=== PATIENT | female | born 1950 | race Hispanic/Latino ===

== ENCOUNTER 2016-06-25 15:09 | Emergency (ER) | payer MEDICARE, BC ==
[2016-06-25 15:25] VITALS: BMI 26.4
[2016-06-25 15:27] VITALS: BP 136/97; PULSE 60; RESP 18; TEMP 98.4; O2SAT 97
[2016-06-25 17:05] LABS: PARTIAL THROMBOPLASTIN TIME 60.1 Seconds (23.7-30.8)
[2016-06-25 17:32] LABS: INR > 11.00 (0.93-1.08)
--- NOTE | 2016-06-25 18:05 | ED PDOC ---
Arrival/HPI - General Chief Complaint: Abnormal Labs Time Seen by Provider: 06/25/16 15:12 Historian: Patient - History of Present Illness Narrative History of Present Illness (Text): 06/25/16 18:02 66 y.o. female whose PMHx includes venous thromboembolism, on coumadin and on HD for ESRD who had her INR drawn this morning at HD and found to be >11.0 - Dr. Eller was made aware; patient was unable to get Vit K, so she was sent here. She denies any cp or sob or abd pain or bleeding. Past Medical History - Infectious Disease Hx of Infectious Diseases: None - Tetanus Immunization Tetanus Immunization: Unknown - Reproductive Menopause: Yes - Cardiac Hx Cardiac Disorders: Yes Hx Congestive Heart Failure: Yes Hx Hypertension: Yes - Pulmonary Hx Pneumonia: Yes - Neurological Hx Neurological Disorder: Yes (syncope) Hx Dizziness: Yes Hx Parkinson's Disease: Yes (hand tremors) Hx Seizures: Yes (x1) - HEENT Hx HEENT Disorder: Yes ([place] l ear, glasses) Hx Cataracts: Yes (BILATERAL CATARACT SURGERY) Hx Deafness: No (denies) - Renal Hx Dialysis: Yes (MWF) Hx Renal Failure: Yes - Endocrine/Metabolic Hx Diabetes Mellitus Type 2: Yes - Hematological/Oncological Hx Blood Disorders: Yes Hx Anemia: Yes (blood transfusions) - Integumentary Hx Dermatological Disorder: Yes (RIGHT BKA,LEFT GREAT TOE AMPUTATION) - Musculoskeletal/Rheumatological Hx Falls: No - Gastrointestinal Hx Gastrointestinal Disorders: Yes (hx c dif/diverticulitis/ reflux) Hx Pancreatitis: Yes Other/Comment: hx colitis had diarrhea x 1 yr and 70 lb weight loss - Genitourinary/Gynecological Hx Genitourinary Disorders: No - Psychiatric Hx Psychophysiologic Disorder: Yes Hx Anxiety: Yes Hx Depression: Yes Hx Emotional Abuse: No Hx Physical Abuse: No Hx Sexual Abuse: No Hx Substance Use: No - Surgical History Hx Amputation: Yes (hx gangrene amputation of left great toe, right bka) Hx Cardiac Catheterization: Yes Hx Coronary Stent: Yes Hx Musculoskeletal Surgery: Yes (right BKA) Other/Comment: LEFT FEMORAL BYPASSl meniscus/ r bka amputation due to ischemia and pain, c section x 2, left upper arm av fistula failed, has right chest wall udall, left great toe amputated due to gangrene - Anesthesia Hx Anesthesia: Yes Hx Anesthesia Reactions: No Hx Malignant Hyperthermia: No - Suicidal Assessment Feels Threatened In Home Enviroment: No Family/Social History Family/Social History: No Known Family HX Smoking Status: Never Smoked Hx Alcohol Use: No Hx Substance Use: No Hx Substance Use Treatment: No Allergies/Home Meds Allergies/Adverse Reactions: Allergies ciprofloxacin Allergy (Verified 02/27/16 14:39) SWELLING hallucination pepper Allergy (Verified 02/27/16 14:39) SWELLING Home Medications: Home Meds Medication Instructions Recorded Confirmed Insulin Aspart [Novolog] 5 - 10 unit SQ ACTID 04/23/15 01/01/16 Vitamin B Complex/Vit C/Folic 1 tab PO DAILY 05/09/15 01/01/16 [Nephro-Felix] Aspirin [Aspirin EC] 81 mg PO DAILY 05/10/15 01/01/16 Albuterol/Ipratropium [Duoneb 3 3 ml IH [id number] PRN 11/07/15 01/01/16 mg/0.5 mg (3 ml) UD] Calcium Acetate [Phoslo] 667 mg PO TID 01/01/16 01/01/16 Insulin Detemir [Levemir] 20 units SC HS 01/01/16 01/01/16 Review of Systems - Review of Systems Constitutional: absent: Fevers Respiratory: absent: SOB Cardiovascular: absent: Chest Pain Gastrointestinal: absent: Abdominal Pain, Nausea, Vomiting Hemo/Lymphatic: absent: Easy Bleeding Physical Exam Vital Signs Temp Pulse Resp BP Pulse Ox 06/25/16 15:27 98.4 F 60 18 136/97 H 97 06/25/16 15:25 100 F H 61 18 136/87 100 Temperature: Afebrile Blood Pressure: Normal Pulse: Regular Respiratory Rate: Normal Appearance: Positive for: Well-Appearing, Non-Toxic, Comfortable Pain Distress: None Mental Status: Positive for: Alert and Oriented X 3 - Systems Exam Head: Present: Atraumatic, Normocephalic Mouth: Present: Moist Mucous Membranes Pharnyx: Present: Normal. No: ERYTHEMA, EXUDATE Respiratory/Chest: Present: Clear to Auscultation, Good Air Exchange. No: Respiratory Distress, Accessory Muscle Use Cardiovascular: Present: Regular Rate and Rhythm, Normal S1, S2. No: Murmurs Abdomen: Present: Normal Bowel Sounds. No: Tenderness, Distention, Peritoneal Signs Neurological: Present: GCS=15, CN II-XII Intact, Speech Normal Skin: Present: Warm, Dry, Normal Color. No: Rashes Psychiatric: Present: Alert, Oriented x 3, Normal Insight, Normal Concentration Medical Decision Making ED Course and Treatment: 06/25/16 18:04 Patient with coumadin coagulopathy with INR, which was repeated, to be greater than 11.0 - as discussed with Dr. Eller, patient will be sent home after 10mg orally of vitamin K, and she will have her INR repeated in 2 days at dialysis. - Lab Interpretations Lab Results: Lab Results 06/25/16 16:28: PT > 120.0 H*, INR > 11.00 H*, APTT 60.1 H - Medication Orders Current Medication Orders: Discontinued Medications Phytonadione (Vitamin K Tab) 10 mg PO ONCE STA Stop: 06/25/16 17:33 Disposition/Present on Arrival - Present on Arrival Any Indicators Present on Arrival: No History of DVT/PE: No History of Uncontrolled Diabetes: No Urinary Catheter: No History of Decub. Ulcer: No History Surgical Site Infection Following: None - Disposition Have Diagnosis and Disposition been Completed?: Yes Diagnosis: Supratherapeutic INR Disposition: HOME/ ROUTINE Disposition Time: 18:10 Patient Plan: Discharge Patient Problems: Current Active Problems Problem Status Diagnosed Acute chest pain Acute Chest pain in adult Acute Hyperkalemia Acute Hypertensive crisis Acute Pneumonia Acute Supratherapeutic INR Acute Syncope and collapse Acute Condition: GOOD Additional Instructions: Hold your coumadin until directed further and your INR is rechecked at dialysis in 2 days. Return to the emergency department immediately if any bleeding or any new concerning symptoms.
== END 2016-06-25 20:46 | disposition home or self-care (01) ==
LOC: ED 15:09
DX: R79.1 Abnormal coagulation profile (principal)

== ENCOUNTER 2016-07-09 14:05 | Emergency (ER) | payer MEDICARE, BC ==
[2016-07-09 14:13] VITALS: TEMP 98
[2016-07-09 14:14] VITALS: BMI 24.8
--- NOTE | 2016-07-09 15:03 | ED PDOC ---
Arrival/HPI - General Chief Complaint: Upper Extremity Problem/Injury Time Seen by Provider: 07/09/16 14:11 Historian: Patient - History of Present Illness Narrative History of Present Illness (Text): 07/09/16 15:20 A 66 year old female, whose past medical history includes DVT (on Coumadin), and renal disease (Dialysis on Friday, , and Saturdays), presents to the emergency department complaining of left arm pain. Pain is localized to the left upper arm. She notes in the past she had a DVT at the site of the pain. Patient's daughter was contacted, who states the patient has been complaining of left arm pain for the past 4 days. Daughter reports patient may have pulled her arm to hard, but denies any falls or trauma. Daughter also states the patient sometimes talks slowly when she has pain. Daughter noticed the patient was talking slowly yesterday. Patient and daughter deny any fever, chest pain or any other complaints at this time. PMD: Dr. Morton Protein Specialist: Dr. sIsa Time/Duration: Other (4 days) Symptom Onset: Sudden Symptom Course: Unchanged Quality: Other Activities at Onset: Rest Context: Home Past Medical History - Provider Review Nursing Documentation Reviewed: Yes - Infectious Disease Hx of Infectious Diseases: None - Tetanus Immunization Tetanus Immunization: Unknown - Reproductive Menopause: No - Cardiac Hx Cardiac Disorders: Yes Hx Congestive Heart Failure: Yes Hx Hypertension: Yes - Pulmonary Hx Pneumonia: Yes - Neurological Hx Neurological Disorder: Yes (syncope) Hx Dizziness: Yes Hx Parkinson's Disease: Yes (hand tremors) Hx Seizures: Yes (x1) - HEENT Hx HEENT Disorder: Yes ([place] l ear, glasses) Hx Cataracts: Yes (BILATERAL CATARACT SURGERY) Hx Deafness: No (denies) - Renal Hx Dialysis: Yes (MWF) Hx Renal Failure: Yes - Endocrine/Metabolic Hx Diabetes Mellitus Type 2: Yes - Hematological/Oncological Hx Blood Disorders: Yes Hx Anemia: Yes (blood transfusions) - Integumentary Hx Dermatological Disorder: Yes (RIGHT BKA,LEFT GREAT TOE AMPUTATION) - Musculoskeletal/Rheumatological Hx Falls: No - Gastrointestinal Hx Gastrointestinal Disorders: Yes (hx c dif/diverticulitis/ reflux) Hx Pancreatitis: Yes Other/Comment: hx colitis had diarrhea x 1 yr and 70 lb weight loss - Genitourinary/Gynecological Hx Genitourinary Disorders: No - Psychiatric Hx Psychophysiologic Disorder: Yes Hx Anxiety: Yes Hx Depression: Yes Hx Emotional Abuse: No Hx Physical Abuse: No Hx Sexual Abuse: No Hx Substance Use: No - Surgical History Hx Amputation: Yes (hx gangrene amputation of left great toe, right bka) Hx Cardiac Catheterization: Yes Hx Coronary Stent: Yes Hx Musculoskeletal Surgery: Yes (right BKA) Other/Comment: LEFT FEMORAL BYPASSl meniscus/ r bka amputation due to ischemia and pain, c section x 2, left upper arm av fistula failed, has right chest wall udall, left great toe amputated due to gangrene - Anesthesia Hx Anesthesia: Yes Hx Anesthesia Reactions: No Hx Malignant Hyperthermia: No - Suicidal Assessment Feels Threatened In Home Enviroment: No Family/Social History - Physician Review Nursing Documentation Reviewed: Yes Family/Social History: No Known Family HX Smoking Status: Never Smoked Hx Alcohol Use: No Hx Substance Use: No Hx Substance Use Treatment: No Allergies/Home Meds Allergies/Adverse Reactions: Allergies ciprofloxacin Allergy (Verified 02/27/16 14:39) SWELLING hallucination pepper Allergy (Verified 02/27/16 14:39) SWELLING Home Medications: Home Meds Medication Instructions Recorded Confirmed Insulin Aspart [Novolog] 5 - 10 unit SQ ACTID 04/23/15 01/01/16 Vitamin B Complex/Vit C/Folic 1 tab PO DAILY 05/09/15 01/01/16 [Nephro-Felix] Aspirin [Aspirin EC] 81 mg PO DAILY 05/10/15 01/01/16 Albuterol/Ipratropium [Duoneb 3 3 ml IH [id number] PRN 11/07/15 01/01/16 mg/0.5 mg (3 ml) UD] Calcium Acetate [Phoslo] 667 mg PO TID 01/01/16 01/01/16 Insulin Detemir [Levemir] 20 units SC HS 01/01/16 01/01/16 Review of Systems - Physician Review All systems were reviewed & negative as marked: Yes - Review of Systems Constitutional: absent: Fevers Cardiovascular: absent: Chest Pain Musculoskeletal: Other (left arm pain) Neurological: Other (slow speech) Physical Exam Vital Signs Reviewed: Yes Vital Signs Temp Pulse Resp BP Pulse Ox 07/09/16 15:00 58 L 18 152/79 H 95 07/09/16 14:13 98.0 F 59 L 18 154/81 H 95 Temperature: Afebrile Blood Pressure: Hypertensive Pulse: Bradycardic Respiratory Rate: Normal Appearance: Positive for: Well-Appearing, Non-Toxic, Comfortable Pain Distress: None Mental Status: Positive for: Alert and Oriented X 3 - Systems Exam Head: Present: Atraumatic, Normocephalic Pupils: Present: PERRL Extroacular Muscles: Present: EOMI Conjunctiva: Present: Normal Mouth: Present: Moist Mucous Membranes Neck: Present: Normal Range of Motion Respiratory/Chest: Present: Clear to Auscultation, Good Air Exchange, Other ( right chest shotty; dialysis port right chest). No: Respiratory Distress, Accessory Muscle Use Cardiovascular: Present: Normal S1, S2, Bradycardic. No: Murmurs Abdomen: Present: Normal Bowel Sounds. No: Tenderness, Distention, Peritoneal Signs Upper Extremity: Present: Tenderness (mild tenderness with palpation to the left upper arm), Neurovascularly Intact, Temperature Abnormalties (warmth to left arm). No: Cyanosis, Edema, Erythema Lower Extremity: Present: Other (right lower extremity with below knee amputation with metal prosthetic; left lower extremity in boot) Neurological: Present: GCS=15, CN II-XII Intact, Speech Normal, Motor Func Grossly Intact, Normal Sensory Function Skin: Present: Warm, Dry, Normal Color. No: Rashes Psychiatric: Present: Alert, Oriented x 3, Normal Insight, Normal Concentration Medical Decision Making ED Course and Treatment: 07/09/16 15:41 Impression: 66 year old female with left arm pain and slow speech.. Differential Diagnosis included but are not limited to: DVT vs. MSK Strain/ Contusion of left arm; Slow speech is due to her being her daughter states but will r/o ICH Plan: -- Left upper extremity duplex -- Head CT -- Left humerus X-ray -- Labs -- Tylenol -- Reassess and disposition Prior Visits: Notes and results from previous visits were reviewed. The patient last presented to the emergency department on 06/25/16 for evaluation of a INR count of 11.0. Progress Notes: 07/09/16 16:32 Ultrasound called the emergency department to notify us the patient Ultrasound is negative for DVT. 07/09/16 17:[address]: Creator : Jazlyn Hedrick MD COMPARISON: Noncontrast head CT performed 09/22/15 FINDINGS: HEMORRHAGE: No intracranial hemorrhage. BRAIN: Diffuse atrophy with prominence of the ventricles and sulci noted. No mass effect or edema. Dense intracranial atherosclerotic calcifications. Scattered periventricular and subcortical white matter hypodensities, which are nonspecific, but often seen with chronic microvascular ischemic disease. 7 mm chronic right lacunar infarct. Please note that MRI with diffusion imaging is more sensitive in the detection of acute ischemic event. VENTRICLES: No hydrocephalus. CALVARIUM: Unremarkable. PARANASAL SINUSES: Unremarkable as visualized. No significant inflammatory changes. MASTOID AIR CELLS: Unremarkable as visualized. No inflammatory changes. OTHER FINDINGS: None. IMPRESSION: Chronic nonspecific white matter changes. Chronic 6 mm right-sided lacunar infarct. Generalized atrophy. 07/09/16 18:23 Left Humerus X-ray Impression: As read by me, no acute fracture. 07/09/16 18:28 Left heel was evaluated. Ulcer looks like it's healing. No warmth or redness or pus. No foul order. Patient is comfortable and in no acute distress. She is at her baseline mental status as per her family. Labs reviewed. WBC nl. CT head negative. US negative for DVT. Patient and family advised to continue Coumadin. Patient will f/u with Dr. Morton and family knows to return if symptoms worsen or any other concern. - Lab Interpretations Lab Results: 07/09/16 15:21 07/09/16 15:21 Lab Results 07/09/16 17:00: PT 15.4 H, INR 1.43 H, APTT 33.0 H 07/09/16 15:21: WBC 8.6 D, RBC 3.66, Hgb 10.2 L, Hct 30.9 L, MCV 84.4, MCH 27.9 , MCHC 33.0, RDW 16.3 H, Plt Count 164, MPV 11.7 H, Gran % 78.8 H, Lymph % (Auto ) 10.5 L, Ida % (Auto) 6.6 H, Eos % (Auto) 3.8, Baso % (Auto) 0.3, Gran # 6.78 H, Lymph # 0.9 L, Ida # 0.6, Eos # 0.3, Baso # 0.03, Sodium 138, Potassium 3.4 L, Chloride 96 L, Carbon Dioxide 30, Anion Gap 15, BUN 22 H, Creatinine 2.7 H, Est GFR ( Amer) 21, Est GFR (Non-Af Amer) 18, Random Glucose 112 H, Calcium 9.9 I have reviewed the lab results: Yes - RAD Interpretation Radiology Orders: 07/09/16 14:58 DUPLEX UPPER EXTRM VEIN LEFT [US] Stat 07/09/16 14:59 HUMERUS LEFT [RAD] Stat 07/09/16 15:45 HEAD W/O CONTRAST [CT] Stat - Medication Orders Current Medication Orders: Discontinued Medications Acetaminophen (Tylenol 325mg Tab) 650 mg PO STAT STA Stop: 07/09/16 14:59 Last Admin: 07/09/16 15:20 Dose: 650 MG MAR Pain/Vitals Document 07/09/16 15:20 RR (Rec: 07/09/16 15:20 RR [id number]) Pain Reassessment Is This A Pain ReAssessment? Yes Sleep Is patient sleeping during reassessment? No Presence of Pain Presence of Pain Yes Pain Scale Used Pain Scale Used Numeric Location Pain Location Body Site Arm - Scribe Statement The provider has reviewed the documentation as recorded by the Leda Coy training under Susana Ortiz All medical record entries made by the Leda were at my direction and personally dictated by me. I have reviewed the chart and agree that the record accurately reflects my personal performance of the history, physical exam, medical decision making, and the department course for this patient. I have also personally directed, reviewed, and agree with the discharge instructions and disposition. Disposition/Present on Arrival - Present on Arrival Any Indicators Present on Arrival: No History of DVT/PE: No History of Uncontrolled Diabetes: No Urinary Catheter: No History of Decub. Ulcer: No History Surgical Site Infection Following: None - Disposition Have Diagnosis and Disposition been Completed?: Yes Diagnosis: Arm pain, left Disposition: HOME/ ROUTINE Disposition Time: 18:33 Patient Plan: Discharge Patient Problems: Current Active Problems Problem Status Diagnosed Acute chest pain Acute Arm pain, left Acute Chest pain in adult Acute Hyperkalemia Acute Hypertensive crisis Acute Pneumonia Acute Syncope and collapse Acute Condition: IMPROVED Discharge Instructions (ExitCare): Arm Pain (ED) Additional Instructions: Ms Dickson and family, thank you for letting us take care of you today. Your provider was Dr. Lebron. You were treated for Left Arm Pain. The emergency medical care you received today was directed at your acute symptoms. If you were prescribed any medication, please fill it and take as directed. It may take several days for your symptoms to resolve. Return to the Emergency Department if your symptoms worsen, do not improve, or if you have any other problems. Please contact your doctor or call one of the physicians/clinics you have been referred to that are listed on the Patient Visit Information form that is included in your discharge packet. Bring any paperwork you were given at discharge with you along with any medications you are taking to your follow up visit. Our treatment cannot replace ongoing medical care by a primary care provider (PCP) outside of the emergency department. Thank you for allowing the [facility] team to be part of your care today. If you had an X-Ray or CT scan: A Radiologist will review the ED reading if any change in treatment is needed we will contact you. If you had a blood, urine, or wound culture: It will take several days for the results, if any change in treatment is needed we will contact you. If you had an STI test: It will take 48 hours for the results. Please call after 1 week if you have not heard back. Referrals: Alexey Morton MD [Staff Provider] - Follow up with primary Forms: WORK NOTE
[2016-07-09 15:21] LABS: ADD MANUAL DIFF? NO
[2016-07-09 15:31] LABS: BASO # 0.03 K/mm3 (0.0-2.0); BASO % 0.3 % (0.0-3.0); EOS # 0.3 (0.0-0.7); EOS % 3.8 % (1.5-5.0); GRAN # 6.78 (1.4-6.5); GRAN % 78.8 % (50.0-68.0); HEMATOCRIT 30.9 % (36.0-48.0); LYMPH # 0.9 (1.2-3.4); LYMPH % 10.5 % (22.0-35.0); MEAN CELL VOLUME 84.4 fL (80.0-105.0); MEAN CORPUSCULAR HEMOGLOBIN 27.9 pg (25.0-35.0); MEAN PLATELET VOLUME 11.7 fl (7.0-11.0); MONO # 0.6 (0.1-0.6); MONO % 6.6 % (1.0-6.0); PLATELET COUNT 164 10^3/uL (120.0-450.0); RED CELL DISTRIBUTION WIDTH 16.3 % (11.5-14.5); WHITE BLOOD COUNT 8.6 10^3/ul (4.5-11.0)
[2016-07-09 15:34] LABS: CALCIUM 9.9 mg/dL (8.4-10.5); POTASSIUM 3.4 mmol/L (3.6-5.0)
--- NOTE | 2016-07-09 17:01 | US ---
PROCEDURE: Left upper extremity venous ultrasound HISTORY: Arm pain and swelling. Evaluate for deep venous thrombosis. PHYSICIAN(S): Carl Morris MD. FINDINGS: The visualized leftinternal jugular vein is sonographically normal and compressible. No evidence of obstruction or thrombus is seen. The visualized segments of the left subclavian vein are patent with normal waveforms. No sonographic evidence of obstruction or thrombosis is seen. The visualized deep venous system of the proximal leftupper extremity is sonographically normal and compressible. IMPRESSION: 1. No sonographic evidence for deep venous thrombosis in the visualized segments of the left upper extremity.
--- NOTE | 2016-07-09 17:20 | CT ---
PROCEDURE: CT HEAD WITHOUT CONTRAST. HISTORY: altered mental status COMPARISON: Noncontrast head CT performed 09/22/15 TECHNIQUE: Axial computed tomography images were obtained through the head/brain without intravenous contrast. Radiation dose: Total exam DLP = 725.84 mGy-cm. This CT exam was performed using one or more of the following dose reduction techniques: Automated exposure control, adjustment of the mA and/or kV according to patient size, and/or use of iterative reconstruction technique. FINDINGS: HEMORRHAGE: No intracranial hemorrhage. BRAIN: Diffuse atrophy with prominence of the ventricles and sulci noted. No mass effect or edema. Dense intracranial atherosclerotic calcifications. Scattered periventricular and subcortical white matter hypodensities, which are nonspecific, but often seen with chronic microvascular ischemic disease. 7 mm chronic right lacunar infarct. Please note that MRI with diffusion imaging is more sensitive in the detection of acute ischemic event. VENTRICLES: No hydrocephalus. CALVARIUM: Unremarkable. PARANASAL SINUSES: Unremarkable as visualized. No significant inflammatory changes. MASTOID AIR CELLS: Unremarkable as visualized. No inflammatory changes. OTHER FINDINGS: None. IMPRESSION: Chronic nonspecific white matter changes. Chronic 6 mm right-sided lacunar infarct. Generalized atrophy.
[2016-07-09 17:54] LABS: INR 1.43 (0.93-1.08)
[2016-07-09 18:34] VITALS: RESP 16; O2SAT 98
[2016-07-09 18:58] VITALS: BP 142/74; PULSE 59
--- NOTE | 2016-07-10 09:30 | RAD ---
PROCEDURE: Radiographs of the left humerus. HISTORY: left arm pain r/o fx COMPARISON: None. FINDINGS: BONES: Normal. No fracture or focal lesion. SOFT TISSUES: Normal. OTHER FINDINGS: None. IMPRESSION: Normal radiographs of left humerus.
== END 2016-07-09 18:58 | disposition home or self-care (01) ==
LOC: ED 14:05
DX: M79.602 Pain in left arm (principal); I12.9 Hypertensive chronic kidney disease with stage 1 through stage 4 chronic kidney disease, or unspecified chronic kidney disease; N18.9 Chronic kidney disease, unspecified; Z99.2 Dependence on renal dialysis; Z86.718 Personal history of other venous thrombosis and embolism; Z79.01 Long term (current) use of anticoagulants

== ENCOUNTER 2016-07-20 11:16 | Inpatient (IN) | payer MEDICARE, BC ==
[2016-07-20 11:22] VITALS: BMI 25.0
--- NOTE | 2016-07-20 11:46 | ED PDOC ---
Arrival/HPI - General Chief Complaint: Weakness/Neurological Deficit Time Seen by Provider: 07/20/16 11:18 Historian: Patient - History of Present Illness Narrative History of Present Illness (Text): 07/20/16 11:21 Yoselyn Dickson is a 66 year old female, whose past medical history includes DVT (on Coumadin), and renal disease (Dialysis on Friday, , and Saturdays), who presents to the emergency department complaining of feeling fatigue and reported AMS since this morning. Patient states that she was able to get out of bed today but fell as she was sitting down. Patient notes that she has no headache and no pain presently, she just feels "very tired." History reviewed with patient's family who states that patient has been fatigued, weak, and sleeping more for over a week. Patient's family also states that patient falls asleep easily and does not ambulate well. They note that patient symptoms are similar to her presentation on July 09. Family states she has been tired "on and off" for several weeks, but over past 1-2 days it has been more persistent. No history of head injury or fevers. No abdominal pain. No rash. No nausea or vomiting. Family states that patient is taking her medication appropriately and there is no history of recent change in medication to their knowledge. Patient also denies inappropriate usage of medication. Time/Duration: 4-6 hours Symptom Onset: Gradual Symptom Course: Unchanged Activities at Onset: Light Modifying Factors (Text): None Context: Home Past Medical History - Provider Review Nursing Documentation Reviewed: Yes - Infectious Disease Hx of Infectious Diseases: None - Tetanus Immunization Tetanus Immunization: Unknown - Cardiac Hx Cardiac Disorders: Yes Hx Congestive Heart Failure: Yes Hx Hypertension: Yes - Pulmonary Hx Pneumonia: Yes - Neurological Hx Neurological Disorder: Yes (syncope) Hx Dizziness: Yes Hx Parkinson's Disease: Yes (hand tremors) Hx Seizures: Yes (x1) - HEENT Hx HEENT Disorder: Yes ([place] l ear, glasses) Hx Cataracts: Yes (BILATERAL CATARACT SURGERY) Hx Deafness: No (denies) - Renal Hx Dialysis: Yes (MWF) Hx Renal Failure: Yes - Endocrine/Metabolic Hx Diabetes Mellitus Type 2: Yes - Hematological/Oncological Hx Blood Disorders: Yes Hx Anemia: Yes (blood transfusions) - Integumentary Hx Dermatological Disorder: Yes (RIGHT BKA,LEFT GREAT TOE AMPUTATION) - Musculoskeletal/Rheumatological Hx Falls: No - Gastrointestinal Hx Gastrointestinal Disorders: Yes (hx c dif/diverticulitis/ reflux) Hx Pancreatitis: Yes Other/Comment: hx colitis had diarrhea x 1 yr and 70 lb weight loss - Genitourinary/Gynecological Hx Genitourinary Disorders: No - Psychiatric Hx Psychophysiologic Disorder: Yes Hx Anxiety: Yes Hx Depression: Yes Hx Emotional Abuse: No Hx Physical Abuse: No Hx Sexual Abuse: No Hx Substance Use: No - Surgical History Hx Amputation: Yes (hx gangrene amputation of left great toe, right bka) Hx Cardiac Catheterization: Yes Hx Coronary Stent: Yes Hx Musculoskeletal Surgery: Yes (right BKA) Other/Comment: LEFT FEMORAL BYPASSl meniscus/ r bka amputation due to ischemia and pain, c section x 2, left upper arm av fistula failed, has right chest wall udall, left great toe amputated due to gangrene - Anesthesia Hx Anesthesia: Yes Hx Anesthesia Reactions: No Hx Malignant Hyperthermia: No - Suicidal Assessment Feels Threatened In Home Enviroment: No Family/Social History - Physician Review Nursing Documentation Reviewed: Yes Family/Social History: No Known Family HX Smoking Status: Never Smoked Hx Alcohol Use: No Hx Substance Use: No Hx Substance Use Treatment: No Allergies/Home Meds Allergies/Adverse Reactions: Allergies ciprofloxacin Allergy (Verified 02/27/16 14:39) SWELLING hallucination clarithromycin [From Biaxin] Allergy (Verified 07/20/16 11:22) SWELLING pepper Allergy (Verified 02/27/16 14:39) SWELLING Home Medications: Home Meds Medication Instructions Recorded Confirmed Insulin Aspart [Novolog] 5 - 10 unit SQ ACTID 04/23/15 07/20/16 Vitamin B Complex/Vit C/Folic 1 tab PO DAILY 05/09/15 07/20/16 [Nephro-Felix] Aspirin [Aspirin EC] 81 mg PO DAILY 05/10/15 07/20/16 Calcium Acetate [Phoslo] 667 mg PO TID 01/01/16 07/20/16 Insulin Detemir [Levemir] 20 units SC HS 01/01/16 07/20/16 Alprazolam [Xanax] 0.5 mg PO TID PRN 07/20/16 07/20/16 Carvedilol [Coreg] 6.25 mg PO Q12 07/20/16 07/20/16 Clonidine HCl [Catapres] 0.3 mg PO BID 07/20/16 07/20/16 Oxycodone HCl/Acetaminophen 1 tab PO Q4 PRN 07/20/16 07/20/16 [Percocet 10-325 mg Tablet] Pantoprazole Sodium [Protonix] 40 mg PO DAILY 07/20/16 07/20/16 Primidone [Mysoline] 50 mg PO DAILY 07/20/16 07/20/16 Warfarin [Coumadin] 10 mg PO 1800 07/20/16 07/20/16 Review of Systems - Review of Systems Constitutional: Fatigue, Other (AMS). absent: Fevers, Night Sweats Eyes: absent: Vision Changes ENT: absent: Hearing Changes Respiratory: absent: SOB, Sputum, Wheezing Cardiovascular: absent: Chest Pain, HERBERT, Syncope Gastrointestinal: absent: Abdominal Pain Genitourinary Female: absent: Urine Output Changes Musculoskeletal: absent: Back Pain, Neck Pain Skin: absent: Rash Neurological: Dizziness. absent: Headache, Focal Weakness Endocrine: absent: Diaphoresis Hemo/Lymphatic: absent: Adenopathy Psychiatric: absent: Depression Physical Exam - Physical Exam Narrative Physical Exam (Text): Head: Atraumatic. Normocephalic. Eyes: PERRL. EOMI. Conjunctivae are not pale. ENT: Mucous membranes are moist and intact. Oropharynx is clear and symmetric. Neck: Supple. Full ROM. No JVD. No lymphadenopathy. No meningeal signs. Cardiovascular: Bradycardic, systolic murmur. Pulmonary/Chest: No evidence of respiratory distress. Clear to auscultation bilaterally. No wheezing, rales or rhonchi. Abdominal: Soft and non-distended. There is no tenderness. No rebound, guarding, or rigidity. No organomegaly. Good bowel sounds. Back: No CVA tenderness. Extremities: No edema. No cyanosis. No clubbing. Full range of motion in all extremities. No calf tenderness. Rectal: no bleeding, no melena Skin: Skin is warm and dry. No petechiae. No purpura. Neurological: Slurred speech intermittently, no facial droop, no pronator drift , no focal weakness, no meningeal signs, sleepy intermittently but arousable. Psychiatric: Patient sleepy, arousable at times with verbal stimuli. Denies depression or suicidal ideation. Vital Signs Reviewed: Yes Vital Signs Temp Pulse Resp BP Pulse Ox 07/20/16 15:54 51 L 173/69 H 07/20/16 15:03 50 L 18 158/62 H 96 07/20/16 12:57 50 L 18 160/66 H 99 07/20/16 11:36 98 F 54 L 14 160/57 H 97 Temperature: Afebrile Blood Pressure: Hypertensive Pulse: Bradycardic Mental Status: Positive for: Lethargic Finger Stick Blood Glucose: 92 Medical Decision Making ED Course and Treatment: 07/20/16 11:25 Impression: 66 year old female complaining of fatigue, weakness, and AMS for over a week. Plan: -- EKG -- Head CT w/o contrast -- Chest X-ray -- Urinalysis -- Labs -- Reassess and disposition Prior Visits: Notes and results from previous visits were reviewed. Patient last seen in the ED on 07/09/16 for left arm pain for 4 days. Progress Notes: History supplemented by family. On exam, patient is seen to be intermittently lethargic in ED, although is arousable. There is no fever, no hypotension, no respiratory distress noted. She is due for dialysis today but has no hyperkalemia noted, and no respiratory distress with serial exams. No hypoxia. Denies head injury but is on Coumadin. Today denies arm pain or swelling. CT head repeated as more frequent AMS and on Coumadin. CT head unremarkable for acute bleed. There is no focal weakness noted. Patient does take opiate and benzodiazepine, but family and patient insist that she has not been taking more than usual. Case discussed with Dr. Garcia covering for Dr. Aguirre, patient admitted for AMS, serial exams. She is bradycardic but denies chest pain, no hypotension noted. 07/20/16 21:59 - Lab Interpretations Lab Results: 07/20/16 11:47 07/20/16 11:47 Lab Results 07/20/16 11:47: WBC 6.8 D, RBC 3.82, Hgb 10.4 L, Hct 32.4 L, MCV 84.8, MCH 27.2 , MCHC 32.1, RDW 16.5 H, Plt Count 286, MPV 10.2, Gran % 73.1 H, Lymph % (Auto) 14.5 L, [place] % (Auto) 6.8 H, Eos % (Auto) 5.2 H, Baso % (Auto) 0.4, Gran # 4.93 , Lymph # 1.0 L, [place] # 0.5, Eos # 0.4, Baso # 0.03, PT 24.5 H, INR 2.27 H, APTT 41.3 H, Sodium 135, Potassium 4.4, Chloride 94 L, Carbon Dioxide 27, Anion Gap 18, BUN 42 H, Creatinine 5.9 H, Est GFR ( Amer) 9, Est GFR (Non-Af Amer) 7, Random Glucose 88, Calcium 10.4, Phosphorus 3.9, Magnesium 2.4 H, Total Bilirubin 0.7, AST 29, ALT 16, Alkaline Phosphatase 129, Lactate Dehydrogenase 400, Total Creatine Kinase 43, Troponin I 0.05 D, Total Protein 7.8, Albumin 3.8, Globulin 4.0, Albumin/Globulin Ratio 1.0 L, Digoxin < 0.4 L - RAD Interpretation Radiology Orders: 07/20/16 11:42 HEAD W/O CONTRAST [CT] Stat CHEST ONE VIEW [RAD] Stat - EKG Interpretation EKG Interpretation (Text): 07/20/16 22:01 EKG at 11:22 sinus bradycardia with first degree av block, left ventricular hypertropy with repolarization abnormality Interpreted by ED Physician: Yes Type: 12 lead EKG - Medication Orders Current Medication Orders: Amlodipine Besylate (Norvasc) 10 mg PO DAILY [facility] Aspirin (Ecotrin) 81 mg PO DAILY [facility] Atorvastatin Calcium (Lipitor) 40 mg PO HS [facility] Calcium Acetate (Phoslo) 667 mg PO WM [facility] Carbidopa/Levodopa (Sinemet 10/100) 1 tab PO TID [facility] Last Admin: 07/20/16 15:54 Dose: 1 TAB Carvedilol (Coreg) 6.25 mg PO Q12 [facility] Clonidine HCl (Catapres) 0.3 mg PO Q12 [facility] Clopidogrel Bisulfate (Plavix) 75 mg PO DAILY [facility] Escitalopram Oxalate (Lexapro) 10 mg PO DAILY [facility] Hydralazine HCl (Apresoline) 100 mg PO Q8H [facility] Last Admin: 07/20/16 15:54 Dose: 100 MG MAR Pulse and Blood Pressure Document 07/20/16 15:54 OCS (Rec: 07/20/16 15:54 OCS [id number]) Pulse Pulse Rate (60-90 beats/min) 51 Blood Pressure Blood Pressure (100/60-150/90 mm Hg) 173/69 Insulin Human Regular (Humulin R Low) 0 units SC ACHS [facility] PRN Reason: Protocol Labetalol HCl (Trandate) 800 mg PO Q12 [facility] Lisinopril (Zestril) 80 mg PO DAILY [facility] Pantoprazole Sodium (Protonix Ec Tab) 40 mg PO DAILY [facility] Primidone (Mysoline) 50 mg PO DAILY [facility] Sertraline HCl (Zoloft) 25 mg PO DAILY [facility] Vitamin B Complex/Vit C/Folic Acid (Nephro-Felix) 1 tab PO DAILY [facility] Warfarin Sodium (Coumadin) 10 mg PO 1800 [facility] PRN Reason: Protocol - Scribe Statement The provider has reviewed the documentation as recorded by the Leda Steinberg Provider Scribe Attestation: All medical record entries made by the Scribe were at my direction and personally dictated by me. I have reviewed the chart and agree that the record accurately reflects my personal performance of the history, physical exam, medical decision making, and the department course for this patient. I have also personally directed, reviewed, and agree with the discharge instructions and disposition. Disposition/Present on Arrival - Present on Arrival Any Indicators Present on Arrival: No History of DVT/PE: No History of Uncontrolled Diabetes: No Urinary Catheter: No History of Decub. Ulcer: No History Surgical Site Infection Following: None - Disposition Have Diagnosis and Disposition been Completed?: Yes Diagnosis: Altered mental status, Bradycardia Disposition: HOSPITALIZED Disposition Time: 13:45 Patient Plan: Admission Patient Problems: Current Active Problems Problem Status Diagnosed Acute chest pain Acute Altered mental status Acute Bradycardia Acute Chest pain in adult Acute Hyperkalemia Acute Hypertensive crisis Acute Pneumonia Acute Syncope and collapse Acute Condition: FAIR
[2016-07-20 11:47] LABS: ADD MANUAL DIFF? NO
[2016-07-20 11:50] LABS: BASO # 0.03 K/mm3 (0.0-2.0); BASO % 0.4 % (0.0-3.0); EOS # 0.4 (0.0-0.7); EOS % 5.2 % (1.5-5.0); GRAN # 4.93 (1.4-6.5); GRAN % 73.1 % (50.0-68.0); HEMATOCRIT 32.4 % (36.0-48.0); LYMPH % 14.5 % (22.0-35.0); MEAN CELL VOLUME 84.8 fL (80.0-105.0); MEAN CORPUSCULAR HEMOGLOBIN 27.2 pg (25.0-35.0); MEAN CORPUSCULAR HGB CONC 32.1 g/dl (31.0-37.0); MEAN PLATELET VOLUME 10.2 fl (7.0-11.0); MONO # 0.5 (0.1-0.6); MONO % 6.8 % (1.0-6.0); PLATELET COUNT 286 10^3/uL (120.0-450.0); RED CELL DISTRIBUTION WIDTH 16.5 % (11.5-14.5); WHITE BLOOD COUNT 6.8 10^3/ul (4.5-11.0)
--- NOTE | 2016-07-20 12:00 | CT ---
PROCEDURE: CT HEAD WITHOUT CONTRAST. HISTORY: ams, on coumadin COMPARISON: 07/09/2016 TECHNIQUE: Axial computed tomography images were obtained through the head/brain without intravenous contrast. Radiation dose: Total exam DLP = 812 mGy-cm. This CT exam was performed using one or more of the following dose reduction techniques: Automated exposure control, adjustment of the mA and/or kV according to patient size, and/or use of iterative reconstruction technique. FINDINGS: HEMORRHAGE: No intracranial hemorrhage. BRAIN: No mass effect or edema. No atrophy or chronic microvascular ischemic changes. VENTRICLES: Unremarkable. No hydrocephalus. CALVARIUM: Unremarkable. PARANASAL SINUSES: Unremarkable as visualized. No significant inflammatory changes. MASTOID AIR CELLS: Unremarkable as visualized. No inflammatory changes. OTHER FINDINGS: None. IMPRESSION: Normal CT of the Head.
[2016-07-20 12:01] LABS: INR 2.27 (0.93-1.08); PARTIAL THROMBOPLASTIN TIME 41.3 Seconds (23.7-30.8)
[2016-07-20 12:04] LABS: BILIRUBIN,TOTAL 0.7 mg/dL (0.2-1.3); CALCIUM 10.4 mg/dL (8.4-10.5); POTASSIUM 4.4 mmol/L (3.6-5.0); TOTAL PROTEIN 7.8 g/dL (5.8-8.3)
[2016-07-20 12:15] LABS: TROPONIN I 0.05 ng/mL
--- NOTE | 2016-07-20 14:13 | CP.PCM.HP ---
History of Present Illness - History of Present Illness History of Present Illness: cc: AMS HPI: Patient is a 66yo female with past medical history of ESRD (Tue, Thur, Sat) , Right-side BKA, Antiphospholipid Ab syndrome, Insulin dependent DM, CAD s/p stent placement, DVTs, Parkinsons, and GERD that presented accompanied by family with complaints of altered mental status. On evaluation, family was not at bedside however according to ED staff, family reported that patient had been altered and lethargic at home. Patient had reported feeling fatigued and more somnolent for the past couple days. Patient reported going to her dialysis session on which was without issue. She denied chest pain, palpitations , SOB, abdominal pain, nausea, vomiting, fever, chills, cough. 12 point ROS as per HPI above otherwise negative PMHx: ESRD, R-side BKA, Antiphospholipid antibody syndrome, Diabetes type 2, CAD s/p stent placement (05/16), History of DVTs, Parkinsons, GERD PSHx: AV fistula, permacath, cataract, Allergies: as per chart Medications: reviewed, as per chart Social History: Former smoker, denies illicit drugs and alcohol use; Daughter aids with ADL's Family history: Noncontributory Biochemical Engineer: Dr. Eller Past Patient History - Infectious Disease Hx of Infectious Diseases: None - Tetanus Immunizations Tetanus Immunization: Unknown - Past Social History Smoking Status: Never Smoked - CARDIAC Hx Cardiac Disorders: Yes Hx Congestive Heart Failure: Yes Hx Hypertension: Yes - PULMONARY Hx Pneumonia: Yes - NEUROLOGICAL Hx Neurological Disorder: Yes (syncope) Hx Dizziness: Yes Hx Parkinson's Disease: Yes (hand tremors) Hx Seizures: Yes (x1) - HEENT Hx HEENT Problems: Yes ([place] l ear, glasses) Hx Cataracts: Yes (BILATERAL CATARACT SURGERY) Hx Deafness: No (denies) - RENAL Hx Dialysis: Yes (MWF) Hx Renal Failure: Yes - ENDOCRINE/METABOLIC Hx Diabetes Mellitus Type 2: Yes - HEMATOLOGICAL/ONCOLOGICAL Hx Blood Disorders: Yes Hx Anemia: Yes (blood transfusions) - INTEGUMENTARY Hx Dermatological Problems: Yes (RIGHT BKA,LEFT GREAT TOE AMPUTATION) - MUSCULOSKELETAL/RHEUMATOLOGICAL Hx Falls: No - GASTROINTESTINAL Hx Gastrointestinal Disorders: Yes (hx c dif/diverticulitis/ reflux) Hx Pancreatitis: Yes Other/Comment: hx colitis had diarrhea x 1 yr and 70 lb weight loss - GENITOURINARY/GYNECOLOGICAL Hx Genitourinary Disorders: No - PSYCHIATRIC Hx Psychophysiologic Disorder: Yes Hx Anxiety: Yes Hx Depression: Yes Hx Emotional Abuse: No Hx Physical Abuse: No Hx Sexual Abuse: No Hx Substance Use: No - SURGICAL HISTORY Hx Amputation: Yes (hx gangrene amputation of left great toe, right bka) Hx Cardiac Catheterization: Yes Hx Coronary Stent: Yes Hx Musculoskeletal Surgery: Yes (right BKA) Other/Comment: LEFT FEMORAL BYPASSl meniscus/ r bka amputation due to ischemia and pain, c section x 2, left upper arm av fistula failed, has right chest wall udall, left great toe amputated due to gangrene - ANESTHESIA Hx Anesthesia: Yes Hx Anesthesia Reactions: No Hx Malignant Hyperthermia: No Meds Allergies/Adverse Reactions: Allergies Allergy/AdvReac Type Severity Reaction Status Date / Time ciprofloxacin Allergy SWELLING Verified 02/27/16 14:39 clarithromycin [From Biaxin] Allergy SWELLING Verified 07/20/16 11:22 pepper Allergy SWELLING Verified 02/27/16 14:39 Physical Exam - Constitutional Appears: Non-toxic, No Acute Distress - Head Exam Head Exam: ATRAUMATIC, NORMAL INSPECTION, NORMOCEPHALIC - Eye Exam Eye Exam: EOMI, PERRL - ENT Exam ENT Exam: Mucous Membranes Moist - Neck Exam Neck exam: Positive for: Normal Inspection - Respiratory Exam Respiratory Exam: Clear to Auscultation Bilateral. absent: Rales, Rhonchi, Wheezes - Cardiovascular Exam Cardiovascular Exam: RRR, +S1, +S2, Systolic Murmur. absent: Clicks, JVD, Rubs - GI/Abdominal Exam GI & Abdominal Exam: Soft. absent: Distended, Firm, Guarding, Rebound, Tenderness - Neurological Exam Neurological exam: Alert, Oriented x3 Additional comments: alert, awake and oriented x3 responding to questions appropriately somnolent but easily arousable - Psychiatric Exam Psychiatric exam: Normal Affect, Normal Mood - Skin Skin Exam: Dry, Intact, Normal Color, Warm Results - Vital Signs Recent Vital Signs: Last Vital Signs Temp 98 F 07/20/16 11:36 Pulse 50 L 07/20/16 12:57 Resp 18 07/20/16 12:57 BP 160/66 H 07/20/16 12:57 Pulse Ox 99 07/20/16 12:57 - Labs Result Diagrams: 07/20/16 11:47 07/20/16 11:47 Labs: Laboratory Results - last 24 hr 07/20/16 11:47 WBC 6.8 D RBC 3.82 Hgb 10.4 L Hct 32.4 L MCV 84.8 MCH 27.2 MCHC 32.1 RDW 16.5 H Plt Count 286 MPV 10.2 Gran % 73.1 H Lymph % (Auto) 14.5 L [place] % (Auto) 6.8 H Eos % (Auto) 5.2 H Baso % (Auto) 0.4 Gran # 4.93 Lymph # 1.0 L [place] # 0.5 Eos # 0.4 Baso # 0.03 PT 24.5 H INR 2.27 H APTT 41.3 H Sodium 135 Potassium 4.4 Chloride 94 L Carbon Dioxide 27 Anion Gap 18 BUN 42 H Creatinine 5.9 H Est GFR ( Amer) 9 Est GFR (Non-Af Amer) 7 Random Glucose 88 Calcium 10.4 Total Bilirubin 0.7 AST 29 ALT 16 Alkaline Phosphatase 129 Lactate Dehydrogenase 400 Total Creatine Kinase 43 Troponin I 0.05 D Total Protein 7.8 Albumin 3.8 Globulin 4.0 Albumin/Globulin Ratio 1.0 L Digoxin < 0.4 L Assessment & Plan - Date & Time Date: 07/20/16 Time: 16:31
[2016-07-20 15:49] LABS: MAGNESIUM 2.4 mg/dL (1.7-2.2); PHOSPHOROUS 3.9 mg/dL (2.5-4.5)
--- NOTE | 2016-07-20 16:43 | HP ---
HISTORY OF PRESENT ILLNESS: I was called down to the Emergency Room by the Emergency Room doctor lázaro santos care of the patient in room 3. She is a patient of Dr. Aguirre who is off this and I am covering for him. She is a 66-year-old female who presents with the complaint of feeling fatigued a nd altered mental status by family. She was not able to get out of bed, just feeling very tired, in and out of it mentally and fatigued. PAST MEDICAL HISTORY: DVT, on Coumadin, end-stage renal disease on dialysis Friday, and , and is very weak and lethargic. Will try and get her to dialysis this morning. Congestive h eart failure, hypertension, pneumonia, syncope, dizziness, hand tremors, seizures, hard of hearing. She wears glasses. She had bilateral cataract surgery. She is deaf. I have to talk very loud to ta brittany to her. She is in renal failure, goes to dialysis, type 2 diabetes, anemia with blood transfusion s in the past. She has a right BKA, left great toe amputation, history of Clostridium difficile, div erticulitis, reflux. She has diarrhea, a 70-pound weight loss. She has had pancreatitis, anxiety, d epression, gangrene, amputation of the left great toe, right BKA, cardiac catheterizations with stent s, right BKA, left femoral bypass, meniscus surgery, right BKA amputation due to ischemia and pain, C -sections x 2, left upper arm AV fistula failed, has a right chest wall [place], left great toe amputa tion due to gangrene. She has a large scar across the chest. FAMILY HISTORY: Hypertension in the family. SOCIAL HISTORY: She never smoked, no alcohol, no drugs. ALLERGIES: SHE HAS ALLERGIES TO CIPRO, CLARITHROMYCIN AND PEPPER. MEDICATIONS: She takes NovoLog insulin, Nephro-Felix, aspirin, PhosLo, Levemir, Xanax, Coreg, Catapre s, oxycodone, Protonix, Mysoline, Coumadin. REVIEW OF SYSTEMS: No acute hearing or vision loss, but old. She is fatigued, lethargic. No fevers, no shortness of breath, no chest pain, no abdominal pain, no nausea, vomiting, constipation, diarrhe a. No problems urinating. No back pain, no neck pain. No rashes, no headache, no dizziness, no baron phoresis, no adenopathy that they can appreciate. No depression at this time. PHYSICAL EXAMINATION: VITAL SIGNS: She has a 98 temp, 54 pulse, 14 respiratory rate, 160/57 blood pressure, 97% O2 sat. HEENT: Head is atraumatic, normocephalic. Extraocular muscles are intact. Pupils equal, reactive t o light and accommodation. Throat is moist. NECK: Supple, no lymphadenopathy appreciated. No JVD. HEART: Regular rate, regular rhythm. LUNGS: Have decreased breath sounds bilaterally, but clear to auscultation. ABDOMEN: Morbidly obese, soft, nontender, positive bowel sounds. No guarding, no rebound, no CVA te nderness. EXTREMITIES: Have no edema. SKIN: Warm and dry. NEUROLOGIC: Alert and awake. In and out of it. She was able to wake up for me. She smiled at me, did not say much. Family did most of the talking. Fairly good eye contact. She is very fatigued, a ltered mental status. LABORATORY DATA: She had multiple tests done. She has a digoxin level less than 0.04. White count 6.8, hemoglobin 10.4, hematocrit 32.4, platelets of 286. INR is 2.27 on Coumadin, which is good. 13 5 sodium, potassium 4.4, BUN 42, creatinine 5.9. She should go to dialysis this afternoon. Also a G FR is 7, sugar is 88, calcium 10.4, phosphorus 3.9, magnesium 2.4. Total bilirubin is 0.7, AST is 29 , ALT is 16, alkaline phosphatase 129, lactic dehydrogenase is 400. Troponin 0.05. Total protein 7. 8. She had tests done. Chest x-ray is pending. Head CT shows normal CT of the head. IMPRESSION AND PLAN: She is having consults with neurology and renal. She will be put back on her m edications. We are going to keep a very close eye on her. We will see how she does tomorrow. See i f she wakes up after dialysis. She is here for lethargy, weakness, fatigue, altered mental status. We will continue with aggressive treatment and care. This was discussed with the resident. Went ovsudhir r the orders with the resident of Dr. Aguirre. Will see her tomorrow. Daniel Garcia DO cc: [phone] TT: 07/20/2016 16:42:42 rn
--- NOTE | 2016-07-20 19:58 | CARD ---
APPROVED REPORT EKG Measurement Heart [id number] <Conclusion> Sinus bradycardia with 1st degree AV block Left ventricular hypertrophy with repolarization abnormality Abnormal ECG
[2016-07-20] MEDS ORDERED: Pneumococcal 23-Valent Vaccine IM ONE (21:38)
[2016-07-20] MEDS: Insulin Reg-LOW-Coverage SC SCH (22:59)
[2016-07-21 07:09] LABS: ADD MANUAL DIFF? NO
[2016-07-21 07:15] LABS: BASO # 0.03 K/mm3 (0.0-2.0); BASO % 0.5 % (0.0-3.0); EOS # 0.2 (0.0-0.7); EOS % 4.1 % (1.5-5.0); GRAN # 3.87 (1.4-6.5); GRAN % 66.9 % (50.0-68.0); HEMATOCRIT 33.1 % (36.0-48.0); LYMPH # 1.1 (1.2-3.4); LYMPH % 18.1 % (22.0-35.0); MEAN CELL VOLUME 86.9 fL (80.0-105.0); MEAN CORPUSCULAR HEMOGLOBIN 26.8 pg (25.0-35.0); MEAN CORPUSCULAR HGB CONC 30.8 g/dl (31.0-37.0); MEAN PLATELET VOLUME 10.3 fl (7.0-11.0); MONO # 0.6 (0.1-0.6); MONO % 10.4 % (1.0-6.0); PLATELET COUNT 278 10^3/uL (120.0-450.0); WHITE BLOOD COUNT 5.8 10^3/ul (4.5-11.0)
[2016-07-21 07:29] LABS: ALB/GLOB RATIO 0.9 (1.1-1.8); BILIRUBIN,TOTAL 0.6 mg/dL (0.2-1.3); CALCIUM 9.9 mg/dL (8.4-10.5); POTASSIUM 4.4 mmol/L (3.6-5.0); TOTAL PROTEIN 7.7 g/dL (5.8-8.3)
[2016-07-21] MEDS: Insulin Reg-LOW-Coverage SC SCH ×2 (07:46→07:47)
--- NOTE | 2016-07-21 08:24 | RAD ---
PROCEDURE: CHEST RADIOGRAPH, 1 VIEW HISTORY: ams COMPARISON: None available. FINDINGS: LUNGS: Linear atelectasis/fibrosis in the left midlung zone. PLEURA: No pneumothorax or pleural fluid seen. CARDIOVASCULAR: Normal. OSSEOUS STRUCTURES: No significant abnormalities. VISUALIZED UPPER ABDOMEN: Normal. OTHER FINDINGS: None. IMPRESSION: Linear atelectasis/fibrosis in the left midlung zone.
[2016-07-21] MEDS: Multivitamin Vitamin B Complex (Nephro-Vite) Tab PO SCH (10:14)
[2016-07-21] MEDS: Pantoprazole 40 mg EC Tab PO SCH (10:15)
--- NOTE | 2016-07-21 10:57 | PN ---
DATE: 07/21/2016 I am covering for Dr. Aguirre, who is off this weekend. She is resting comfortably in bed. She is much more alert today. I hope she had the dialysis yester day. She looks less swollen, but she is in pain in her leg. She did fall the other day at home. Lavonne peguero is more alert. No chest pain, no shortness of breath. She is on Apresoline, Catapres, Coreg, Coumadin, Ecotrin, insulin coverage, Lexapro, Lipitor, Mysolin e, vitamins, Norvasc, PhosLo, Protonix, Sinemet, labetalol, Ultram for pain, Zestril and Zoloft. PHYSICAL EXAMINATION: VITAL SIGNS: Temperature 99.1, 61 pulse, 160/54 blood pressure, 18 respiratory rate. HEAD: Atraumatic, normocephalic. THROAT: Moist. NECK: Supple. HEART: Regular rate. LUNGS: Decreased breath sounds, poor inspiration, but clear to auscultation. No wheezes, no rhonchi , no rales. ABDOMEN: Soft, positive bowel sounds. No guarding, no rebound. EXTREMITIES: She has a right BKA. The left leg is not swollen. She has a 5.8 white count today, 10.2 hemoglobin, 33.1 hematocrit with 278 platelets. INR is 2.27. We will check that tomorrow also. She has a 137 sodium, potassium 4.4, BUN 24, creatinine 4.3, everardo r after dialysis, GFR is up to 10. Her blood sugar was 88 yesterday and now it bumped up to 309. Lavonne peguero is on medication for diabetes. I will consult Dr. Akers, the composite technician, for such an increase i n diabetes/blood sugars in a short time. Total bili is 0.6, AST is 21, ALT is 20, alkaline phosphata se 150, total protein 7.7. She has consults with neurology and renal. Neither of them populated on the chart yet. No reports a re on the chart. I am not sure if she was seen by them. We will continue with aggressive treatment and care. I am glad she is waking up. She was confused. She had some leg pain. We will give her s ome medicine for that. Watch the blood sugars. We will check her labs tomorrow. Daniel Garcia DO cc: [id number] TT: 07/21/2016 10:56:47 Confirmation # [id number] Dictation # [id number] en
[2016-07-21] MEDS: Insulin Lispro (humaLOG) LOW Coverage SC SCH ×3 (11:59→23:10)
[2016-07-21] MEDS: Insulin Lispro 1 UNITS/0.01 ML SC SCH ×2 (12:03→17:21)
--- NOTE | 2016-07-21 13:09 | CON ---
DATE: 07/21/2016 LOCATION: Room 262. HISTORY OF PRESENT ILLNESS: This is a 66-year-old female with known history of type 2 insulin-requir ing diabetes, presenting here with progressive generalized body weakness and altered sensorium, and i s now being referred for diabetic evaluation because of recent hyperglycemic accelerations as noted t hereof. PAST MEDICAL HISTORY: As mentioned above, history of type 2 insulin-requiring diabetes on a combina tion regimen using Levemir at 20 units subQ at bedtime daily with NovoLog given between 5-10 units t. i.d. with meals as noted, history of hypertensive cardiovascular disease and dyslipidemia, history of diabetic retinopathy, polyneuropathy, and nephropathy with end-stage renal disease and dialysis depe ndence. History of coronary artery disease with previous coronary stent placement and also history o f peripheral arterial disease and vasculopathy with previous right below-knee amputation as noted. H istory of antiphospholipid antibody syndrome and is currently on oral anticoagulation therapy as note d, history of previous DVT in the lower extremities as noted, also known history of Parkinson's disea se with underlying anxiety and increasing depression, currently on psychotropic medications as noted, history of chronic gastritis and GERD with variable oral intake. FAMILY HISTORY: Positive for hypertension and diabetes. SOCIAL HISTORY: The patient has supportive family. No known substance use. Has a remote history of cigarette smoking. She also has a very supportive family and her daughter and other family members assist with daily ADLs and with sitting assistance. REVIEW OF SYSTEMS: As mentioned above, admits to generalized body weakness with easy fatigability an d tiredness and suboptimal energy level. Has been noted by the family to have increasing hypersomnol ence and lethargy, worse in the last 2-3 days prior to admission. No chest pains or palpitations or PNDs. Also has had episodic bouts of generalized weakness and shortness of breath, especially on exe rtion. PHYSICAL EXAMINATION: GENERAL: An average built female in no apparent distress. VITAL SIGNS: Blood pressure of 140/84, pulse of 70 beats per minute and regular, temperature 98, res pirations 20. Height is 5 foot 5 inches and weight is 144 pounds. HEENT: Head normocephalic. Eyes anicteric with pink conjunctivae. Fundoscopy not possible at this time. Ears, nose and throat otherwise normal. NECK: Supple. Thyroid gland is normal size. No carotid bruits. No cervical adenopathy. CARDIOPULMONARY: Some adynamic precordium. S1, S2 is rapid and regular. LUNGS: Clear to auscultation. ABDOMEN: Flat, soft with positive bowel sounds. EXTREMITIES: No peripheral edema. Pulses are +2 bilaterally. The right below knee amputation stump is healed with no evidence of any necrosis or ulcerations time. LABORATORY DATA: Her chemistries showed a BUN of 24, sodium 137, potassium 4.4, chloride 95, CO2 of 28, glucose 309 and creatinine 4.3. ASSESSMENT: This is a 66-year-old female with uncontrolled and decompensated type 2 insulin-requirin g diabetes with recent hyperglycemic accelerations and is now being referred for closer endocrine daniel luation and management. PLAN OF MANAGEMENT: We will modify the coverage to obviate hypoglycemia and detailed orders have bee n given. We will add Humalog given as 10 units subQ t.i.d. before meals to start at lunchtime today as ordered and we will titrate incrementally as indicated to optimize metabolic control. We will als o add basal insulin with Levemir to be given as 20 units subQ at bedtime daily to start tonight. We will modify the coverage scale to obviate hypoglycemia and detailed orders have been given. We will obtain a hemoglobin A1c to confirm her prior glycemic control and baseline thyroid function studies w ill be ordered. We will also order serial chemistries and supplement accordingly as needed. We will follow. Ladonna Akers MD cc: [id number] TT: 07/21/2016 13:09:07 Confirmation # [id number] Dictation # [id number] val
[2016-07-21] MEDS: Oxycodone/Acetaminophen 5/325 mg Tab PO PRN (16:05)
[2016-07-21] MEDS ORDERED: Insulin Detemir 100 units/ml Vial (Levemir) SC SCH (22:00)
[2016-07-22 07:53] LABS: ADD MANUAL DIFF? NO
[2016-07-22 07:57] LABS: BASO # 0.03 K/mm3 (0.0-2.0); BASO % 0.4 % (0.0-3.0); EOS # 0.4 (0.0-0.7); EOS % 4.3 % (1.5-5.0); GRAN # 6.58 (1.4-6.5); GRAN % 77.9 % (50.0-68.0); HEMATOCRIT 31.8 % (36.0-48.0); LYMPH # 0.9 (1.2-3.4); LYMPH % 10.2 % (22.0-35.0); MEAN CELL VOLUME 85.9 fL (80.0-105.0); MEAN CORPUSCULAR HEMOGLOBIN 27.3 pg (25.0-35.0); MEAN CORPUSCULAR HGB CONC 31.8 g/dl (31.0-37.0); MEAN PLATELET VOLUME 10.6 fl (7.0-11.0); MONO # 0.6 (0.1-0.6); MONO % 7.2 % (1.0-6.0); PLATELET COUNT 264 10^3/uL (120.0-450.0); WHITE BLOOD COUNT 8.4 10^3/ul (4.5-11.0)
[2016-07-22 08:08] LABS: INR 2.21 (0.93-1.08)
[2016-07-22] MEDS: Insulin Lispro (humaLOG) LOW Coverage SC SCH ×4 (08:16→22:22)
[2016-07-22] MEDS: Insulin Lispro 1 UNITS/0.01 ML SC SCH ×2 (08:42→12:43)
[2016-07-22 08:53] LABS: ALB/GLOB RATIO 0.9 (1.1-1.8); BILIRUBIN,TOTAL 0.4 mg/dL (0.2-1.3); CALCIUM 10.1 mg/dL (8.4-10.5); POTASSIUM 4.7 mmol/L (3.6-5.0); TOTAL PROTEIN 7.3 g/dL (5.8-8.3)
--- NOTE | 2016-07-22 09:09 | CON ---
DATE: 07/22/2016 REFERRING PHYSICIAN: Dr. Aguirre REASON FOR CONSULTATION: End-stage renal disease on hemodialysis. CHIEF COMPLAINT AND HISTORY OF PRESENT ILLNESS: This is a 66-year-old female who is coming into the hospital because of a fall. She had come into the Emergency Room because of feeling fatigued. There are reports according to the records that the patient was confused. She stated to me that she was t rying to get out of bed and she fell. She does not know the circumstances of what happened. In deonte dwyer the notes, it states that the patient felt very tired. There are no headaches. The patient gaitan s been slowly declining over the past few months. She denies any loss of consciousness. No headache s, no dizziness, no nausea, no vomiting. She has been getting dialysis on Friday, and . I did arrange dialysis on Friday. She was dialyzed with no issues. She does have a history of being on Coumadin for DVT. ALLERGIES: CIPRO, CLARITHROMYCIN AND PEPPER. HOME MEDICATIONS: NovoLog, aspirin, PhosLo, Levemir, Xanax, Coreg, Catapres, Protonix, Mysoline, Cou madin. PAST MEDICAL HISTORY: 1. End-stage renal disease, on hemodialysis. 2. Deep venous thrombosis, on anticoagulation with Coumadin. 3. Coronary artery disease with stenting. 4. Hypertension. 5. Parkinson disease. 6. Seizures. 7. Diabetes type 2. 8. Diverticulosis. 9. Peripheral arterial disease. 10. Gastroesophageal reflux disease. 11. Antiphospholipid antibodies, on Coumadin. 12. Thromboembolism of the liver and kidney, on anticoagulation. 13. Left arm fistula. 14. Left renal cyst. PAST SURGICAL HISTORY: Left femoral bypass, right BKA, CABG, left toe amputation, bilateral cataract s. SOCIAL HISTORY: She lives alone. She does have a daughter that is involved in her care. She is wid owed. She denies smoking. FAMILY HISTORY: Noncontributory. PHYSICAL EXAMINATION: VITAL SIGNS: Temperature is 98.3, pulse of 56, blood pressure is 153/64, respirations 19, O2 saturat ion 97%. EXTREMITIES: In the left arm, left AV fistula with good thrill and bruit. Right BKA. CHEST: A midline scar that is no drainage or erythema. NEUROLOGIC: Resting tremor bilaterally. LABORATORIES: White count of 8.4, hemoglobin 10.1, platelets is 264. Sodium is 137, potassium is 4. 4, creatinine is 4.3 with a glucose of 309. Her phosphorus is 3.9. Toxicology shows digoxin is less than 0.4. CT of the head done is normal. Chest x-ray done shows linear atelectasis and fibrosis in the left up per, mid lung zone. An EKG done showed sinus bradycardia at 55, first degree AV block, LVH with repolarization is present . ASSESSMENT: 1. Delirium, now improved. 2. End-stage renal disease, on hemodialysis. 3. Antiphospholipid antibodies, on Coumadin. 4. Coronary artery disease. 5. Peripheral arterial disease. 6. Parkinson's. 7. Anxiety. 8. Left arteriovenous fistula. 9. Secondary hyperparathyroidism. 10. Diabetes type 2. 11. Chronic anemia. 12. Gastroesophageal reflux disease. 13. Below knee amputation. PLAN: The patient is currently comfortable. She is due for dialysis tomorrow. The patient is curre ntly receiving Coreg. This will be continued. She has resistant hypertension. She is on clonidine. She also has noncompliance with her fluid removal with ultrafiltration on dialysis. Her Coreg has been placed on hold. She is on insulin for her diabetes. She is on Lipitor for dyslipidemia. She i s on primidone. She is going to continue with her PhosLo. She is on carbidopa/levodopa for her Park inson's. She is on lisinopril for her hypertension. I will change her calcium acetate to Renvela. She is on Zestril for hypertension. She is on Zoloft. She is on a renal diet. Her INR is therapeut ic. She is not on Coumadin 10 mg. I will decrease her Coumadin to her dose, which she is currently about 6 mg from the last INR that was done as an outpatient. We will continue to follow. The patien t is in the hospital for dialysis. Currently, no renal issues that are acute or active. May be disc harged from my perspective. Bebo Eller MD cc: [id number] TT: 07/22/2016 09:08:48 Confirmation # [id number] Dictation # [id number] en
[2016-07-22 09:31] LABS: THYROID STIMULATING HORMONE 3.5 MIU/ml (0.46-4.68)
[2016-07-22] MEDS: Pantoprazole 40 mg EC Tab PO SCH (10:40)
[2016-07-22] MEDS: Multivitamin Vitamin B Complex (Nephro-Vite) Tab PO SCH (10:40)
--- NOTE | 2016-07-22 10:53 | CP.PCM.PN ---
<Nestor Castellanos - Last Filed: 07/22/16 15:04> Subjective - Date & Time of Evaluation Date of Evaluation: 07/22/16 Time of Evaluation: 10:49 - Subjective Subjective: Medicine progress note - Nestor Castellanos PGY1 Patient seen and examined at bedside this morning. No acute distress or overnight complaints reported. Patient reports feeling weak and is being seen by physical therapy. Tolerating dialysis well. Denies chest pain, palpitations, SOB. Objective - Vital Signs/Intake and Output Vital Signs (last 24 hours): Temp Pulse Resp BP Pulse Ox 98.3 F 57 L 19 153/64 H 97 07/22/16 06:00 07/22/16 06:00 07/22/16 06:00 07/22/16 06:00 07/22/16 06:00 Intake and Output: 07/22/16 07/22/16 06:59 18:59 Intake Total 660 Output Total 0 Balance 660 - Medications Medications: Current Medications Amlodipine Besylate (Norvasc) 10 mg PO DAILY [facility] Last Admin: 07/22/16 10:39 Dose: 10 mg Aspirin (Ecotrin) 81 mg PO DAILY [facility] Last Admin: 07/22/16 10:40 Dose: 81 mg Atorvastatin Calcium (Lipitor) 40 mg PO HS [facility] Last Admin: 07/21/16 21:50 Dose: 40 mg Carbidopa/Levodopa (Sinemet 10/100) 1 tab PO TID [facility] Last Admin: 07/22/16 10:40 Dose: 1 tab Carvedilol (Coreg) 6.25 mg PO Q12 [facility] Last Admin: 07/20/16 21:19 Dose: 6.25 mg Clonidine HCl (Catapres) 0.3 mg PO Q12 [facility] Last Admin: 07/22/16 10:39 Dose: 0.3 mg Clopidogrel Bisulfate (Plavix) 75 mg PO DAILY [facility] Last Admin: 07/22/16 10:40 Dose: 75 mg Escitalopram Oxalate (Lexapro) 10 mg PO DAILY [facility] Last Admin: 07/22/16 10:40 Dose: 10 mg Hydralazine HCl (Apresoline) 100 mg PO Q8H [facility] Last Admin: 07/22/16 05:27 Dose: 100 mg Insulin Detemir (Levemir) 20 unit SC [facility] Last Admin: 07/21/16 23:11 Dose: Not Given Insulin Human Lispro (Humalog Low) 0 units SC ACHS [facility] PRN Reason: Protocol Last Admin: 07/22/16 08:16 Dose: Not Given Insulin Human Lispro (Humalog) 10 units SC AC [facility] Last Admin: 07/22/16 08:42 Dose: 10 units Labetalol HCl (Trandate) 800 mg PO Q12 [facility] Last Admin: 07/20/16 21:18 Dose: 800 mg Lisinopril (Zestril) 80 mg PO DAILY [facility] Last Admin: 07/22/16 10:40 Dose: 80 mg Oxycodone/Acetaminophen (Percocet 5/325 Mg Tab) 1 tab PO Q8H PRN PRN Reason: Pain, moderate (4-7) Stop: 07/24/16 15:56 Last Admin: 07/21/16 16:05 Dose: 1 tab Pantoprazole Sodium (Protonix Ec Tab) 40 mg PO DAILY [facility] Last Admin: 07/22/16 10:40 Dose: 40 mg Primidone (Mysoline) 50 mg PO DAILY [facility] Last Admin: 07/22/16 10:40 Dose: 50 mg Sertraline HCl (Zoloft) 25 mg PO DAILY [facility] Last Admin: 07/22/16 10:40 Dose: 25 mg Sevelamer HCl (Renagel) 800 mg PO TID [facility] Last Admin: 07/22/16 10:40 Dose: 800 mg Vitamin B Complex/Vit C/Folic Acid (Nephro-Jerry) 1 tab PO DAILY [facility] Last Admin: 07/22/16 10:40 Dose: 1 tab Warfarin Sodium (Coumadin) 6 mg PO 1800 [facility] PRN Reason: Protocol - Labs Labs: 07/22/16 06:45 07/22/16 06:45 PT 23.9 Seconds (9.9-11.8) H 07/22/16 06:45 INR 2.21 (0.93-1.08) H 07/22/16 06:45 APTT 41.3 Seconds (23.7-30.8) H 07/20/16 11:47 - Constitutional Appears: Non-toxic, No Acute Distress - Head Exam Head Exam: ATRAUMATIC, NORMAL INSPECTION, NORMOCEPHALIC - Eye Exam Eye Exam: EOMI, PERRL - ENT Exam ENT Exam: Mucous Membranes Moist - Neck Exam Neck Exam: Normal Inspection - Respiratory Exam Respiratory Exam: Clear to Ausculation Bilateral. absent: Rales, Rhonchi, Wheezes - Cardiovascular Exam Cardiovascular Exam: RRR, +S1, +S2, Murmur. absent: Gallop, Rubs - GI/Abdominal Exam GI & Abdominal Exam: Soft, Normal Bowel Sounds. absent: Distended, Firm, Guarding, Rigid, Tenderness, Rebound - Neurological Exam Neurological Exam: Alert, Awake, Oriented x3 - Psychiatric Exam Psychiatric exam: Normal Affect, Normal Mood - Skin Skin Exam: Dry, Intact, Normal Color, Warm Assessment and Plan - Assessment and Plan (Free Text) Assessment: 66yo female with history of ESRD on hemodialysis (Fri, , Fri), Right-sided BKA, antiphospholipid Ab syndrome, DM type 2, CAD s/p stents/CABG, history of DVT, Parkinsons and GERD brought in by family with complaints of lethargy and altered mental status. Plan: 1. Altered mental status/Lethargy -CT Head negative, no acute intracranial abnormalities -MRI Head pending -Patient alert and oriented on examination; answering questions appropriately -Afebrile, no leukocytosis; no apparent sources of infection -Neurology consulted - Dr. Soriano 2. End stage renal disease -Patient on hemodialysis (Fri, , Fri); tolerating well -Continue with renagel and nephro-jerry -Nephrology consulted - Dr. Eller 3. Hypertension -Continue hydralazine, lisinopril, clonidine, norvasc 4. Diabetes Type 2 -Continue humalog 10u AC and Levemir 20u HS -Continue humalog low dose ISS -Endocrinology consulted - Dr. Akers 5. CAD -Continue ASA 81, lipitor, coreg 6. Parkinsons -Continue home medication Sinemet 7. History of DVT -Continue warfarin 6mg PO qD -INR therapeutic 8. GI/DVT prophylaxis -Protonix/Warfarin Disposition: Patient currently being seen and evaluated by physical therapy. Case management/Social work evaluation pending for potential TCU/[facility] placement upon discharge Patient seen and case discussed with attending, Dr. Aguirre <Wm Aguirre - Last Filed: 08/30/16 08:09> Objective - Vital Signs/Intake and Output Vital Signs (last 24 hours): Temp Pulse Resp BP Pulse Ox 98 F 74 18 169/59 H 97 07/23/16 16:00 04/25/17 16:00 07/23/16 16:00 07/23/16 16:00 07/23/16 16:00 - Labs Labs: 07/23/16 05:10 07/23/16 05:10 PT 23.9 Seconds (9.9-11.8) H 07/22/16 06:45 INR 2.21 (0.93-1.08) H 07/22/16 06:45 APTT 41.3 Seconds (23.7-30.8) H 07/20/16 11:47 Attending/Attestation - Attestation I have personally seen and examined this patient.: Yes I have fully participated in the care of the patient.: Yes I have reviewed all pertinent clinical information, including history, physical exam and plan: Yes Notes (Text): 08/30/16 08:09 Medical record note made by the resident after discussion with my direction and input after the patient was personally seen and examined by me. I have reviewed the chart and agree that the record reflects my personal performance of history, physical, data review and course for the patient that I have planned.
[2016-07-22 13:06] LABS: T4 6.3 ug/dL (5.5-11.0)
--- NOTE | 2016-07-22 15:55 | MRI ---
PROCEDURE: MRI BRAIN WITHOUT CONTRAST HISTORY: ams COMPARISON: 12/16/2013 TECHNIQUE: Multiplanar, multisequence MR images of the brain were obtained without intravenous contrast enhancement. FINDINGS: HEMORRHAGE: None DWI: No evidence of an acute or early subacute infarction. BRAIN PARENCHYMA: No mass effect or edema. No atrophy or chronic microvascular ischemic changes. VENTRICLES: Unremarkable. No hydrocephalus. CRANIUM: Unremarkable. ORBITS: Grossly unremarkable. PARANASAL SINUSES/MASTOIDS: Clear VASCULAR SYSTEM: Skull base flow voids intact. OTHER FINDINGS: None. IMPRESSION: No acute intracranial findings.
--- NOTE | 2016-07-22 16:17 | PN ---
DATE: 07/22/2016 ROOM: 362 This is a 66-year-old female with recent uncontrolled type 2 insulin-requiring diabetes, presenting h ere with extremes of glycemic fluctuation and is now being followed closely for metabolic management. Her glycemic levels are fluctuating as noted and the latest glucose levels today have ranged from 2 28-263 mg/dL. It was 71 at bedtime last night. Her hemoglobin A1c is 8.0%, indicative of slightly s uboptimal metabolic control of her diabetic condition. So, at this time, we will modify her basal and bolus insulin regimen and increase the Levemir to 24 u nits subQ at bedtime daily to start tonight. We will lower the Humalog however to 8 units subQ t.i.d . before meals as her oral intake remains quite variable at this time. We will titrate incrementally as indicated to optimize metabolic control. We will obtain serial chemistries and supplement accord ingly as needed. We will follow. Ladonna Akers MD cc: [id number] TT: 07/22/2016 16:16:14 Confirmation # [id number] Dictation # [id number]
[2016-07-22] MEDS ORDERED: Insulin Lispro 1 UNITS/0.01 ML SC SCH ×2 (16:30)
[2016-07-22] MEDS ORDERED: Insulin Detemir 100 units/ml Vial (Levemir) SC SCH (22:00)
[2016-07-23 06:25] LABS: ADD MANUAL DIFF? NO
[2016-07-23] MEDS: Insulin Lispro (humaLOG) LOW Coverage SC SCH ×3 (07:30→17:47)
[2016-07-23 07:43] LABS: BASO # 0.03 K/mm3 (0.0-2.0); BASO % 0.3 % (0.0-3.0); EOS # 0.4 (0.0-0.7); EOS % 4.1 % (1.5-5.0); GRAN # 7.73 (1.4-6.5); HEMATOCRIT 32.2 % (36.0-48.0); LYMPH % 10.6 % (22.0-35.0); MEAN CELL VOLUME 85.4 fL (80.0-105.0); MEAN CORPUSCULAR HEMOGLOBIN 27.1 pg (25.0-35.0); MEAN CORPUSCULAR HGB CONC 31.7 g/dl (31.0-37.0); MEAN PLATELET VOLUME 11.2 fl (7.0-11.0); MONO # 0.6 (0.1-0.6); PLATELET COUNT 284 10^3/uL (120.0-450.0); RED CELL DISTRIBUTION WIDTH 17.2 % (11.5-14.5); WHITE BLOOD COUNT 9.8 10^3/ul (4.5-11.0)
[2016-07-23 08:11] LABS: BILIRUBIN,TOTAL 0.5 mg/dL (0.2-1.3); CALCIUM 10.3 mg/dL (8.4-10.5); POTASSIUM 4.9 mmol/L (3.6-5.0); TOTAL PROTEIN 7.5 g/dL (5.8-8.3)
[2016-07-23] MEDS: Oxycodone/Acetaminophen 5/325 mg Tab PO PRN ×2 (09:52→17:56)
[2016-07-23 10:20] LABS: MAGNESIUM 2.4 mg/dL (1.7-2.2)
--- NOTE | 2016-07-23 10:45 | CP.PCM.DIS ---
Provider - Provider Date of Admission: 07/20/16 14:29 Attending physician: Wm Aguirre MD Primary care physician: Alexey Morton MD Time Spent in preparation of Discharge (in minutes): 30 Hospital Course - Lab Results Lab Results: Most Recent Lab Values WBC 9.8 10^3/ul (4.5-11.0) 07/23/16 05:10 RBC 3.77 10^6/uL (3.5-6.1) 07/23/16 05:10 Hgb 10.2 gm/dL (12.0-16.0) L 07/23/16 05:10 Hct 32.2 % (36.0-48.0) L 07/23/16 05:10 MCV 85.4 fL (80.0-105.0) 07/23/16 05:10 MCH 27.1 pg (25.0-35.0) 07/23/16 05:10 MCHC 31.7 g/dl (31.0-37.0) 07/23/16 05:10 RDW 17.2 % (11.5-14.5) H 07/23/16 05:10 Plt Count 284 10^3/uL (120.0-450.0) 07/23/16 05:10 MPV 11.2 fl (7.0-11.0) H 07/23/16 05:10 Gran % 79.0 % (50.0-68.0) H 07/23/16 05:10 Lymph % (Auto) 10.6 % (22.0-35.0) L 07/23/16 05:10 Barton % (Auto) 6.0 % (1.0-6.0) 07/23/16 05:10 Eos % (Auto) 4.1 % (1.5-5.0) 07/23/16 05:10 Baso % (Auto) 0.3 % (0.0-3.0) 07/23/16 05:10 Gran # 7.73 (1.4-6.5) H 07/23/16 05:10 Lymph # 1.0 (1.2-3.4) L 07/23/16 05:10 Barton # 0.6 (0.1-0.6) 07/23/16 05:10 Eos # 0.4 (0.0-0.7) 07/23/16 05:10 Baso # 0.03 K/mm3 (0.0-2.0) 07/23/16 05:10 PT 23.9 Seconds (9.9-11.8) H 07/22/16 06:45 INR 2.21 (0.93-1.08) H 07/22/16 06:45 APTT 41.3 Seconds (23.7-30.8) H 07/20/16 11:47 Sodium 130 mmol/L (132-148) L 07/23/16 05:10 Potassium 4.9 mmol/L (3.6-5.0) 07/23/16 05:10 Chloride 89 mmol/L (95-110) L 07/23/16 05:10 Carbon Dioxide 25 mmol/L (21-33) 07/23/16 05:10 Anion Gap 21 (10-20) H 07/23/16 05:10 BUN 50 mg/dL (7-21) H 07/23/16 05:10 Creatinine 6.8 mg/dL (0.5-1.4) H 07/23/16 05:10 Est GFR ( Amer) 7 07/23/16 05:10 Est GFR (Non-Af Amer) 6 07/23/16 05:10 POC Glucose (mg/dL) 228 mg/dL (65-110) H 07/22/16 11:04 Random Glucose 142 mg/dL (70-110) H 07/23/16 05:10 Hemoglobin A1c 8.0 % (4.2-6.5) H 07/22/16 06:45 Calcium 10.3 mg/dL (8.4-10.5) 07/23/16 05:10 Phosphorus 4.0 mg/dL (2.5-4.5) 07/23/16 06:00 Magnesium 2.4 mg/dL (1.7-2.2) H 07/23/16 06:00 Total Bilirubin 0.5 mg/dL (0.2-1.3) 07/23/16 05:10 AST 28 U/L (15-39) 07/23/16 05:10 ALT 15 U/L (7-56) 07/23/16 05:10 Alkaline Phosphatase 161 U/L (38-133) H 07/23/16 05:10 Lactate Dehydrogenase 400 U/L (333-699) 07/20/16 11:47 Total Creatine Kinase 43 U/L (35-230) 07/20/16 11:47 Troponin I 0.05 ng/mL D 07/20/16 11:47 Total Protein 7.5 g/dL (5.8-8.3) 07/23/16 05:10 Albumin 3.7 g/dL (3.0-4.8) 07/23/16 05:10 Globulin 3.8 gm/dL 07/23/16 05:10 Albumin/Globulin Ratio 1.0 (1.1-1.8) L 07/23/16 05:10 Triglycerides 114 mg/dL (35-160) 07/22/16 06:45 Cholesterol 122 mg/dL (130-200) L 07/22/16 06:45 LDL Cholesterol Direct 69 mg/dL (0-129) 07/22/16 06:45 HDL Cholesterol 30 mg/dL (29-60) 07/22/16 06:45 Thyroxine (T4) 6.3 ug/dL (5.5-11.0) 07/22/16 06:45 TSH 3rd Generation 3.5 MIU/ml (0.46-4.68) 07/22/16 06:45 Digoxin < 0.4 ng/mL (0.8-2.0) L 07/20/16 11:47 Discharge Exam - Head Exam Head Exam: ATRAUMATIC, NORMAL INSPECTION, NORMOCEPHALIC Discharge Plan - Follow Up Plan Condition: FAIR Disposition: HOME/ ROUTINE Referrals: Alexey Morton MD [Primary Care Provider] -
[2016-07-23 11:27] LABS: RETIC% 2.17 % (0.5-1.5)
[2016-07-23 11:38] LABS: IRON 36 ug/dL (45-180)
--- NOTE | 2016-07-23 12:50 | CP.PCM.CON ---
History of Present Illness - History of Present Illness History of Present Illness: 66 year old female, whose past medical history includes DVT (on Coumadin), and renal disease (Dialysis on Friday, , and Saturdays), seen at bedside with attending Dr. Gay, for right foot painful callus. Patient states that she sees Dr. Issa whenever she has any foot concerns. Patient appears in NAD and AAOx3. Patient denies any other pedal complaints. SHe denies n/f/v/c/d/sob. Past Patient History - Infectious Disease Hx of Infectious Diseases: None - Tetanus Immunizations Tetanus Immunization: Unknown - Past Social History Smoking Status: Never Smoked - CARDIAC Hx Cardiac Disorders: Yes Hx Congestive Heart Failure: Yes Hx Hypertension: Yes - PULMONARY Hx Pneumonia: Yes - NEUROLOGICAL Hx Neurological Disorder: Yes (syncope) Hx Dizziness: Yes Hx Parkinson's Disease: Yes (hand tremors) Hx Seizures: Yes (x1) - HEENT Hx HEENT Problems: Yes ([place] l ear, glasses) Hx Cataracts: Yes (BILATERAL CATARACT SURGERY) Hx Deafness: No (denies) - RENAL Hx Renal Failure: Yes - ENDOCRINE/METABOLIC Hx Diabetes Mellitus Type 2: Yes - HEMATOLOGICAL/ONCOLOGICAL Hx Blood Disorders: Yes Hx Anemia: Yes (blood transfusions) - INTEGUMENTARY Hx Dermatological Problems: Yes (RIGHT BKA,LEFT GREAT TOE AMPUTATION) - MUSCULOSKELETAL/RHEUMATOLOGICAL Hx Falls: No - GASTROINTESTINAL Hx Gastrointestinal Disorders: Yes (hx c dif/diverticulitis/ reflux) Hx Pancreatitis: Yes Other/Comment: hx colitis had diarrhea x 1 yr and 70 lb weight loss - GENITOURINARY/GYNECOLOGICAL Hx Genitourinary Disorders: No - PSYCHIATRIC Hx Psychophysiologic Disorder: Yes Hx Anxiety: Yes Hx Depression: Yes Hx Emotional Abuse: No Hx Physical Abuse: No Hx Sexual Abuse: No Hx Substance Use: No - SURGICAL HISTORY Hx Amputation: Yes (hx gangrene amputation of left great toe, right bka) Hx Cardiac Catheterization: Yes Hx Coronary Stent: Yes Hx Musculoskeletal Surgery: Yes (right BKA) Other/Comment: LEFT FEMORAL BYPASSl meniscus/ r bka amputation due to ischemia and pain, c section x 2, left upper arm av fistula failed, has right chest wall udall, left great toe amputated due to gangrene - ANESTHESIA Hx Anesthesia: Yes Hx Anesthesia Reactions: No Hx Malignant Hyperthermia: No Meds Allergies/Adverse Reactions: Allergies Allergy/AdvReac Type Severity Reaction Status Date / Time ciprofloxacin Allergy SWELLING Verified 02/27/16 14:39 clarithromycin [From Biaxin] Allergy SWELLING Verified 07/20/16 11:22 pepper Allergy SWELLING Verified 02/27/16 14:39 - Medications Medications: Current Medications Amlodipine Besylate (Norvasc) 10 mg PO DAILY [facility] Last Admin: 07/22/16 10:39 Dose: 10 mg Aspirin (Ecotrin) 81 mg PO DAILY [facility] Last Admin: 07/22/16 10:40 Dose: 81 mg Atorvastatin Calcium (Lipitor) 40 mg PO [facility] Last Admin: 07/21/16 21:50 Dose: 40 mg Carbidopa/Levodopa (Sinemet 10/100) 1 tab PO TID [facility] Last Admin: 07/22/16 17:07 Dose: 1 tab Carvedilol (Coreg) 6.25 mg PO Q12 [facility] Last Admin: 07/20/16 21:19 Dose: 6.25 mg Clonidine HCl (Catapres) 0.3 mg PO Q12 [facility] Last Admin: 07/22/16 22:21 Dose: Not Given Clopidogrel Bisulfate (Plavix) 75 mg PO DAILY [facility] Last Admin: 07/22/16 10:40 Dose: 75 mg Escitalopram Oxalate (Lexapro) 10 mg PO DAILY [facility] Last Admin: 07/22/16 10:40 Dose: 10 mg Hydralazine HCl (Apresoline) 100 mg PO Q8H [facility] Last Admin: 07/22/16 22:20 Dose: Not Given Insulin Detemir (Levemir) 24 unit SC [facility] Last Admin: 07/22/16 22:27 Dose: 24 unit Insulin Human Lispro (Humalog Low) 0 units SC [facility] PRN Reason: Protocol Last Admin: 07/22/16 22:22 Dose: Not Given Insulin Human Lispro (Humalog) 6 units SC AC [facility] Last Admin: 07/22/16 17:06 Dose: 6 units Labetalol HCl (Trandate) 800 mg PO Q12 [facility] Last Admin: 07/20/16 21:18 Dose: 800 mg Lisinopril (Zestril) 80 mg PO DAILY [facility] Last Admin: 07/22/16 10:40 Dose: 80 mg Oxycodone/Acetaminophen (Percocet 5/325 Mg Tab) 1 tab PO Q8H PRN PRN Reason: Pain, moderate (4-7) Stop: 07/24/16 15:56 Last Admin: 07/23/16 09:52 Dose: 1 tab Pantoprazole Sodium (Protonix Ec Tab) 40 mg PO DAILY [facility] Last Admin: 07/22/16 10:40 Dose: 40 mg Primidone (Mysoline) 50 mg PO DAILY [facility] Last Admin: 07/22/16 10:40 Dose: 50 mg Sertraline HCl (Zoloft) 25 mg PO DAILY [facility] Last Admin: 07/22/16 10:40 Dose: 25 mg Sevelamer HCl (Renagel) 800 mg PO TID [facility] Last Admin: 07/22/16 17:07 Dose: 800 mg Vitamin B Complex/Vit C/Folic Acid (Nephro-Felix) 1 tab PO DAILY [facility] Last Admin: 07/22/16 10:40 Dose: 1 tab Warfarin Sodium (Coumadin) 6 mg PO 1800 [facility] PRN Reason: Protocol Last Admin: 07/22/16 17:05 Dose: 6 mg Results - Vital Signs Recent Vital Signs: Last Vital Signs Temp 99.1 F 07/23/16 06:00 Pulse 57 L 07/23/16 06:00 Resp 20 07/23/16 06:00 BP 147/68 07/23/16 06:00 Pulse Ox 98 07/23/16 06:00 - Labs Result Diagrams: 07/23/16 05:10 07/23/16 05:10 Labs: Laboratory Results - last 24 hr 07/21/16 07/21/16 07/21/16 07:35 11:26 15:57 WBC RBC Hgb Hct MCV MCH MCHC RDW Plt Count MPV Gran % Lymph % (Auto) [place] % (Auto) Eos % (Auto) Baso % (Auto) Gran # Lymph # [place] # Eos # Baso # Retic Count Sodium Potassium Chloride Carbon Dioxide Anion Gap BUN Creatinine Est GFR ( Amer) Est GFR (Non-Af Amer) POC Glucose (mg/dL) 296 H 273 H 185 H Random Glucose Calcium Phosphorus Magnesium Iron TIBC % Saturation Total Bilirubin AST ALT Alkaline Phosphatase Total Protein Albumin Globulin Albumin/Globulin Ratio Thyroxine (T4) 07/22/16 07/22/16 07/22/16 06:45 07:29 11:04 WBC RBC Hgb Hct MCV MCH MCHC RDW Plt Count MPV Gran % Lymph % (Auto) [place] % (Auto) Eos % (Auto) Baso % (Auto) Gran # Lymph # [place] # Eos # Baso # Retic Count Sodium Potassium Chloride Carbon Dioxide Anion Gap BUN Creatinine Est GFR ( Amer) Est GFR (Non-Af Amer) POC Glucose (mg/dL) 263 H 228 H Random Glucose Calcium Phosphorus Magnesium Iron TIBC % Saturation Total Bilirubin AST ALT Alkaline Phosphatase Total Protein Albumin Globulin Albumin/Globulin Ratio Thyroxine (T4) 6.3 07/23/16 07/23/16 07/23/16 05:10 05:10 06:00 WBC 9.8 RBC 3.77 Hgb 10.2 L Hct 32.2 L MCV 85.4 MCH 27.1 MCHC 31.7 RDW 17.2 H Plt Count 284 MPV 11.2 H Gran % 79.0 H Lymph % (Auto) 10.6 L [place] % (Auto) 6.0 Eos % (Auto) 4.1 Baso % (Auto) 0.3 Gran # 7.73 H Lymph # 1.0 L [place] # 0.6 Eos # 0.4 Baso # 0.03 Retic Count Sodium 130 L Potassium 4.9 Chloride 89 L Carbon Dioxide 25 Anion Gap 21 H BUN 50 H Creatinine 6.8 H Est GFR ( Amer) 7 Est GFR (Non-Af Amer) 6 POC Glucose (mg/dL) Random Glucose 142 H Calcium 10.3 Phosphorus 4.0 Magnesium 2.4 H Iron TIBC % Saturation Total Bilirubin 0.5 AST 28 ALT 15 Alkaline Phosphatase 161 H Total Protein 7.5 Albumin 3.7 Globulin 3.8 Albumin/Globulin Ratio 1.0 L Thyroxine (T4) 07/23/16 07/23/16 06:30 11:15 WBC RBC Hgb Hct MCV MCH MCHC RDW Plt Count MPV Gran % Lymph % (Auto) [place] % (Auto) Eos % (Auto) Baso % (Auto) Gran # Lymph # [place] # Eos # Baso # Retic Count 2.17 H Sodium Potassium Chloride Carbon Dioxide Anion Gap BUN Creatinine Est GFR ( Amer) Est GFR (Non-Af Amer) POC Glucose (mg/dL) Random Glucose Calcium Phosphorus Magnesium Iron 36 L TIBC 216 L % Saturation 17 L Total Bilirubin AST ALT Alkaline Phosphatase Total Protein Albumin Globulin Albumin/Globulin Ratio Thyroxine (T4)
[2016-07-23] MEDS: Multivitamin Vitamin B Complex (Nephro-Vite) Tab PO SCH (14:05)
[2016-07-23] MEDS: Pantoprazole 40 mg EC Tab PO SCH (14:06)
--- NOTE | 2016-07-23 15:01 | PN ---
DATE: 07/23/2016 ROOM: 362 SUBJECTIVE: This is a 66-year-old female with recent uncontrolled type 2 insulin-requiring diabetes now being followed closely for metabolic management. Her oral intake continues to be variable at thi s time with glycemic fluctuation as expected and the latest chemistries showed a BUN of 50, sodium 13 0, potassium 4.9, chloride 89, CO2 25, glucose 142, and creatinine 6.8. Her glucose values have rang ed from 142-228 and 263 mg/dL. So at this time, we will continue the same basal and bolus insulin re gimen to allow for dose equilibration and keep her on the Levemir given as basal insulin at 24 units subQ at bedtime daily as ordered. We will increase the Humalog to 8 units subQ t.i.d. before meals t o start at dinnertime today as ordered. We will titrate incrementally as indicated to optimize metab olic control. We will follow. Ladonna Akers MD cc: [id number] TT: 07/23/2016 15:01:17 Confirmation # [id number] Dictation # [id number] tn
--- NOTE | 2016-07-23 16:20 | CON ---
DATE: 07/23/2016 A 66-year-old female well known to the [facility] wound care team seen at bedside for con sultation, evaluation and management of a recent breakdown on her left heel. PAST MEDICAL HISTORY: Significant for longstanding type 2 diabetes with severe peripheral arterial d isease and peripheral neuropathy, end-stage renal disease on hemodialysis 3 days a week, congestive h eart failure, essential hypertension, syncope, hearing deficiency anemia, depression, and CAD. PAST SURGICAL HISTORY: Significant for right below-knee amputation, left great toe amputation, and c ardiac catheterizations with stenting as well as lower extremity bypass surgery and bilateral knee ramsey rgery. FAMILY HISTORY: Significant for essential hypertension. ALLERGIES: SHE IS ALLERGIC TO CIPRO AND CLARITHROMYCIN SOCIAL HISTORY: The patient denies any illicit drug use. Does not drink alcohol and never smoked. CURRENT MEDICATIONS: All medications are noted in MAR. VITAL SIGNS: Reveal a temperature of 99.1, pulse rate of 57, blood pressure of 140/64 and a respirat ory rate of 20. LABORATORY FINDINGS: Reveal a white count of 9.8, hemoglobin of 10.2, hematocrit of 32.2, platelet c ount 284. There is no microbiology report. OBJECTIVE: There is noted to be a right below-knee amputation. Left lower extremity presents with n onpalpable pedal pulses noted bilaterally. She is unable to detect 5.07 gram monofilament wire testi ng bilaterally. Capillary filling time is delayed x 4 and there is an absent hallux noted. Lower ex tremity skin presents thin, shiny and discolored. There is a full thickness ulceration at the medial aspect of the left heel which measures approximately 0.5 x 0.5 x 0.2 cm. The base of the ulcer is p rimarily granular with minimal serous drainage. The wound does not probe to tendon or bone. There i s no purulence. There is no malodor. There is no suggestion of abscess formation. ASSESSMENT: Negron grade 2 diabetic left heel ulceration. PLAN: Wound culture was taken and submitted for sensitivities. The wound was cleansed with normal s terile saline. We will apply Bactroban and a dry sterile dressing daily. The patient is set for dis charge later this afternoon and she was told that she must call the wound center and follow up with sudhir more myself, Dr. Gay or with Dr. Issa. She stated that she would call tomorrow when she is ho me after discharge. Dany Gay DPM cc: [id number] TT: 07/23/2016 16:19:36 Confirmation # [id number] Dictation # [id number] tn
[2016-07-23] MEDS ORDERED: Insulin Lispro 1 UNITS/0.01 ML SC SCH (16:30)
[2016-07-23 17:34] LABS: FOLATE > 20.0 ng/mL
--- NOTE | 2016-07-23 19:22 | CP.PCM.PN ---
<Nestor Castellanos - Last Filed: 07/23/16 19:19> Subjective - Date & Time of Evaluation Date of Evaluation: 07/23/16 Time of Evaluation: 19:19 - Subjective Subjective: Medicine progress note - Nestor Castellanos PGY1 Patient seen and examined at bedside this morning. Reported no overnight events or new complaints. Tolerating diet well and sleeping without issue. She was accepted to TCU for physical therapy/rehabilitation and is cleared for discharge pending available bed. Objective - Vital Signs/Intake and Output Vital Signs (last 24 hours): Temp Pulse Resp BP Pulse Ox 99.1 F 61 20 140/64 98 07/23/16 06:00 07/23/16 14:04 07/23/16 06:00 07/23/16 14:05 07/23/16 06:00 - Medications Medications: Current Medications Amlodipine Besylate (Norvasc) 10 mg PO DAILY [facility] Last Admin: 07/23/16 14:05 Dose: 10 mg Aspirin (Ecotrin) 81 mg PO DAILY [facility] Last Admin: 07/23/16 14:07 Dose: 81 mg Atorvastatin Calcium (Lipitor) 40 mg PO HS [facility] Last Admin: 07/21/16 21:50 Dose: 40 mg Carbidopa/Levodopa (Sinemet 10/100) 1 tab PO TID [facility] Last Admin: 07/23/16 17:58 Dose: 1 tab Carvedilol (Coreg) 6.25 mg PO Q12 [facility] Last Admin: 07/20/16 21:19 Dose: 6.25 mg Clonidine HCl (Catapres) 0.3 mg PO Q12 [facility] Last Admin: 07/23/16 10:01 Dose: Not Given Clopidogrel Bisulfate (Plavix) 75 mg PO DAILY [facility] Last Admin: 07/23/16 14:06 Dose: 75 mg Escitalopram Oxalate (Lexapro) 10 mg PO DAILY [facility] Last Admin: 07/23/16 14:05 Dose: 10 mg Hydralazine HCl (Apresoline) 100 mg PO Q8H [facility] Last Admin: 07/23/16 14:04 Dose: 100 mg Insulin Detemir (Levemir) 24 unit SC [facility] Last Admin: 07/22/16 22:27 Dose: 24 unit Insulin Human Lispro (Humalog Low) 0 units SC [facility] PRN Reason: Protocol Last Admin: 07/23/16 17:47 Dose: Not Given Insulin Human Lispro (Humalog) 8 units SC [facility] Last Admin: 07/23/16 17:47 Dose: 8 units Labetalol HCl (Trandate) 800 mg PO Q12 [facility] Last Admin: 07/20/16 21:18 Dose: 800 mg Lisinopril (Zestril) 80 mg PO DAILY [facility] Last Admin: 07/23/16 14:06 Dose: 80 mg Oxycodone/Acetaminophen (Percocet 5/325 Mg Tab) 1 tab PO Q8H PRN PRN Reason: Pain, moderate (4-7) Stop: 07/24/16 15:56 Last Admin: 07/23/16 17:56 Dose: 1 tab Pantoprazole Sodium (Protonix Ec Tab) 40 mg PO DAILY [facility] Last Admin: 07/23/16 14:06 Dose: 40 mg Primidone (Mysoline) 50 mg PO DAILY [facility] Last Admin: 07/23/16 14:05 Dose: 50 mg Sertraline HCl (Zoloft) 25 mg PO DAILY [facility] Last Admin: 07/23/16 14:06 Dose: 25 mg Sevelamer HCl (Renagel) 800 mg PO TID [facility] Last Admin: 07/23/16 17:58 Dose: 800 mg Vitamin B Complex/Vit C/Folic Acid (Nephro-Jerry) 1 tab PO DAILY [facility] Last Admin: 07/23/16 14:05 Dose: 1 tab Warfarin Sodium (Coumadin) 6 mg PO 1800 [facility] PRN Reason: Protocol Last Admin: 07/23/16 17:56 Dose: 6 mg - Labs Labs: 07/23/16 05:10 07/23/16 05:10 PT 23.9 Seconds (9.9-11.8) H 07/22/16 06:45 INR 2.21 (0.93-1.08) H 07/22/16 06:45 APTT 41.3 Seconds (23.7-30.8) H 07/20/16 11:47 - Constitutional Appears: Non-toxic, No Acute Distress - Head Exam Head Exam: ATRAUMATIC, NORMAL INSPECTION, NORMOCEPHALIC - Eye Exam Eye Exam: EOMI, PERRL - ENT Exam ENT Exam: Mucous Membranes Moist - Neck Exam Neck Exam: Normal Inspection - Respiratory Exam Respiratory Exam: Clear to Ausculation Bilateral. absent: Rales, Rhonchi, Wheezes - Cardiovascular Exam Cardiovascular Exam: RRR, +S1, +S2. absent: Gallop, JVD, Rubs - GI/Abdominal Exam GI & Abdominal Exam: Soft, Normal Bowel Sounds. absent: Distended, Firm, Guarding, Rigid, Tenderness - Neurological Exam Neurological Exam: Alert, Awake, Oriented x3 - Psychiatric Exam Psychiatric exam: Normal Affect, Normal Mood - Skin Skin Exam: Dry, Intact, Normal Color, Warm Assessment and Plan - Assessment and Plan (Free Text) Plan: 66yo female with history of ESRD on hemodialysis (Fri, , Fri), Right-sided BKA, antiphospholipid Ab syndrome, DM type 2, CAD s/p stents/CABG, history of DVT, Parkinsons and GERD brought in by family with complaints of lethargy and altered mental status. 1. Altered mental status/Lethargy -CT Head negative, no acute intracranial abnormalities -MRI Head negative for acute intracranial pathology -Patient alert and oriented on examination; answering questions appropriately -Afebrile, no leukocytosis; no apparent sources of infection -Neurology consulted - Dr. Soriano 2. End stage renal disease -Patient on hemodialysis (Fri, , Fri); tolerating well -Continue with renagel and nephro-jerry -Nephrology consulted - Dr. Eller 3. Hypertension -Continue hydralazine, lisinopril, clonidine, norvasc 4. Diabetes Type 2 -Continue basal/bolus insulin regimen as per endocrinology recommendations -Continue humalog low dose ISS -Endocrinology consulted - Dr. Akers 5. CAD -Continue ASA 81, lipitor, coreg 6. Parkinsons -Continue home medication Sinemet 7. History of DVT -Continue warfarin 6mg PO qD -INR therapeutic 8. GI/DVT prophylaxis -Protonix/Warfarin Disposition: Patient accepted to and medically cleared for discharge to TCU pending available bed Patient seen and case discussed with attending, Dr. Aguirre <Wm Aguirre - Last Filed: 08/30/16 08:10> Objective - Vital Signs/Intake and Output Vital Signs (last 24 hours): Temp Pulse Resp BP Pulse Ox 98 F 74 18 169/59 H 97 07/23/16 16:00 07/23/16 16:00 07/23/16 16:00 07/23/16 16:00 07/23/16 16:00 - Labs Labs: 07/23/16 05:10 07/23/16 05:10 PT 23.9 Seconds (9.9-11.8) H 07/22/16 06:45 INR 2.21 (0.93-1.08) H 07/22/16 06:45 APTT 41.3 Seconds (23.7-30.8) H 07/20/16 11:47 Attending/Attestation - Attestation I have personally seen and examined this patient.: Yes I have fully participated in the care of the patient.: Yes I have reviewed all pertinent clinical information, including history, physical exam and plan: Yes Notes (Text): 08/30/16 08:09 Medical record note made by the resident after discussion with my direction and input after the patient was personally seen and examined by me. I have reviewed the chart and agree that the record reflects my personal performance of history, physical, data review and course for the patient that I have planned.
[2016-07-23 20:26] VITALS: BP 169/59; PULSE 74; RESP 18; TEMP 98; O2SAT 97
--- NOTE | 2016-07-23 22:56 | CP.PCM.DIS ---
<Nestor Castellanos - Last Filed: 07/24/16 13:04> Provider - Provider Date of Admission: 07/20/16 14:29 Attending physician: Wm Aguirre MD Primary care physician: Alexey Morton MD Consults: Nephrology - Dr. Eller Podiatry - Dr. Issa Endocrinology - Dr. Akers Time Spent in preparation of Discharge (in minutes): 30 Hospital Course - Lab Results Lab Results: Most Recent Lab Values WBC 9.8 10^3/ul (4.5-11.0) 07/23/16 05:10 RBC 3.77 10^6/uL (3.5-6.1) 07/23/16 05:10 Hgb 10.2 gm/dL (12.0-16.0) L 07/23/16 05:10 Hct 32.2 % (36.0-48.0) L 07/23/16 05:10 MCV 85.4 fL (80.0-105.0) 07/23/16 05:10 MCH 27.1 pg (25.0-35.0) 07/23/16 05:10 MCHC 31.7 g/dl (31.0-37.0) 07/23/16 05:10 RDW 17.2 % (11.5-14.5) H 07/23/16 05:10 Plt Count 284 10^3/uL (120.0-450.0) 07/23/16 05:10 MPV 11.2 fl (7.0-11.0) H 07/23/16 05:10 Gran % 79.0 % (50.0-68.0) H 07/23/16 05:10 Lymph % (Auto) 10.6 % (22.0-35.0) L 07/23/16 05:10 Cross % (Auto) 6.0 % (1.0-6.0) 07/23/16 05:10 Eos % (Auto) 4.1 % (1.5-5.0) 07/23/16 05:10 Baso % (Auto) 0.3 % (0.0-3.0) 07/23/16 05:10 Gran # 7.73 (1.4-6.5) H 07/23/16 05:10 Lymph # 1.0 (1.2-3.4) L 07/23/16 05:10 Cross # 0.6 (0.1-0.6) 07/23/16 05:10 Eos # 0.4 (0.0-0.7) 07/23/16 05:10 Baso # 0.03 K/mm3 (0.0-2.0) 07/23/16 05:10 Retic Count 2.17 % (0.5-1.5) H 07/23/16 06:30 PT 23.9 Seconds (9.9-11.8) H 07/22/16 06:45 INR 2.21 (0.93-1.08) H 07/22/16 06:45 APTT 41.3 Seconds (23.7-30.8) H 07/20/16 11:47 Sodium 130 mmol/L (132-148) L 07/23/16 05:10 Potassium 4.9 mmol/L (3.6-5.0) 07/23/16 05:10 Chloride 89 mmol/L (95-110) L 07/23/16 05:10 Carbon Dioxide 25 mmol/L (21-33) 07/23/16 05:10 Anion Gap 21 (10-20) H 07/23/16 05:10 BUN 50 mg/dL (7-21) H 07/23/16 05:10 Creatinine 6.8 mg/dL (0.5-1.4) H 07/23/16 05:10 Est GFR ( Amer) 7 07/23/16 05:10 Est GFR (Non-Af Amer) 6 07/23/16 05:10 POC Glucose (mg/dL) 228 mg/dL (65-110) H 07/22/16 11:04 Random Glucose 142 mg/dL (70-110) H 07/23/16 05:10 Hemoglobin A1c 8.0 % (4.2-6.5) H 07/22/16 06:45 Calcium 10.3 mg/dL (8.4-10.5) 07/23/16 05:10 Phosphorus 4.0 mg/dL (2.5-4.5) 07/23/16 06:00 Magnesium 2.4 mg/dL (1.7-2.2) H 07/23/16 06:00 Iron 36 ug/dL (45-180) L 07/23/16 11:15 TIBC 216 ug/dL (265-497) L 07/23/16 11:15 % Saturation 17 % (20-55) L 07/23/16 11:15 Ferritin 771.0 ng/mL 07/23/16 06:30 Total Bilirubin 0.5 mg/dL (0.2-1.3) 07/23/16 05:10 AST 28 U/L (15-39) 07/23/16 05:10 ALT 15 U/L (7-56) 07/23/16 05:10 Alkaline Phosphatase 161 U/L (38-133) H 07/23/16 05:10 Lactate Dehydrogenase 400 U/L (333-699) 07/20/16 11:47 Total Creatine Kinase 43 U/L (35-230) 07/20/16 11:47 Troponin I 0.05 ng/mL D 07/20/16 11:47 Total Protein 7.5 g/dL (5.8-8.3) 07/23/16 05:10 Albumin 3.7 g/dL (3.0-4.8) 07/23/16 05:10 Globulin 3.8 gm/dL 07/23/16 05:10 Albumin/Globulin Ratio 1.0 (1.1-1.8) L 07/23/16 05:10 Triglycerides 114 mg/dL (35-160) 07/22/16 06:45 Cholesterol 122 mg/dL (130-200) L 07/22/16 06:45 LDL Cholesterol Direct 69 mg/dL (0-129) 07/22/16 06:45 HDL Cholesterol 30 mg/dL (29-60) 07/22/16 06:45 Vitamin B12 530 pg/mL (239-931) 07/23/16 06:30 Folate > 20.0 ng/mL 07/23/16 06:30 Thyroxine (T4) 6.3 ug/dL (5.5-11.0) 07/22/16 06:45 TSH 3rd Generation 3.5 MIU/ml (0.46-4.68) 07/22/16 06:45 Digoxin < 0.4 ng/mL (0.8-2.0) L 07/20/16 11:47 - Hospital Course Hospital Course: Patient is a 66yo female with past medical history of ESRD on hemodialysis (Fri , , Fri), Right-side BKA, Antiphospholipid Antibody syndrome, CAD s/p stent placement and CABG, history of DVT, Parkinson's, GERD, CHF, Hypertension, DM2 that presented accompanied by family member with complaints of lethargy and altered mental status. Patient's family had reported that she had been lethargic at home and was not at her baseline. They reported that she was unable to get out of bed and seemed mentally and physically fatigued. On initial evaluation in the ED, the patient was alert and oriented to person and place. She responded to questions appropriately and had good cognition. The following work/results were obtained during the patient's hospital course: 1. Altered mental status/Lethargy -CT Head negative, no acute intracranial abnormalities -MRI Head negative for acute intracranial pathology -Patient alert and oriented on examination; answering questions appropriately -Afebrile, no leukocytosis; no apparent sources of infection -Neurology consulted - Dr. Soriano 2. End stage renal disease -Patient on hemodialysis (Fri, , Fri); tolerating well -Continue with renagel and nephro-jerry -Nephrology consulted - Dr. Eller 3. Hypertension -Continue hydralazine, lisinopril, clonidine, norvasc 4. Diabetes Type 2 -Continue basal/bolus insulin regimen as per endocrinology recommendations -Continue humalog low dose ISS -Endocrinology consulted - Dr. Akers 5. CAD -Continue ASA 81, lipitor, coreg 6. Parkinsons -Continue home medication Sinemet 7. History of DVT -Continue warfarin 6mg PO qD -INR therapeutic 8. GI/DVT prophylaxis -Protonix/Warfarin Disposition: Patient was evaluated by physical therapy and was recommended TCU/ [facility]. Patient qualified for TCU and was subsequently medically cleared for discharge to TCU for physical rehabilitation. Patient seen and case discussed with attending, Dr. Aguirre Discharge Exam - Head Exam Head Exam: ATRAUMATIC, NORMAL INSPECTION, NORMOCEPHALIC Discharge Plan - Follow Up Plan Condition: FAIR Disposition: TRANSF TO SNF Instructions: Bradycardia (DC), Altered Mental Status (GEN), Fatigue (DC), Fall Prevention (DC) Additional Instructions: CONTINUE DIALYSIS NORMALLY SCHEDULED. TAKE MEDICATION INSTRUCTED. MONITOR FOR ANY BLEEDING. REPORT ANY BLEEDING TO MD. ANY FALLS REPORT TO MD AND GO TO ER. Referrals: Alexey Morton MD [Primary Care Provider] - <Wm Aguirre - Last Filed: 08/30/16 08:10> Provider - Provider Date of Admission: 07/20/16 14:29 Attending physician: Wm Aguirre MD Primary care physician: Alexey Morton MD Hospital Course - Lab Results Lab Results: Micro Results 07/23/16 22:42 Other: Please Indicate Gram Stain - Final 07/23/16 22:42 Other: Please Indicate Wound Culture - Final Staphylococcus Sp Coag Neg Most Recent Lab Values WBC 9.8 10^3/ul (4.5-11.0) 07/23/16 05:10 RBC 3.77 10^6/uL (3.5-6.1) 07/23/16 05:10 Hgb 10.2 gm/dL (12.0-16.0) L 07/23/16 05:10 Hct 32.2 % (36.0-48.0) L 07/23/16 05:10 MCV 85.4 fL (80.0-105.0) 07/23/16 05:10 MCH 27.1 pg (25.0-35.0) 07/23/16 05:10 MCHC 31.7 g/dl (31.0-37.0) 07/23/16 05:10 RDW 17.2 % (11.5-14.5) H 07/23/16 05:10 Plt Count 284 10^3/uL (120.0-450.0) 07/23/16 05:10 MPV 11.2 fl (7.0-11.0) H 07/23/16 05:10 Gran % 79.0 % (50.0-68.0) H 07/23/16 05:10 Lymph % (Auto) 10.6 % (22.0-35.0) L 07/23/16 05:10 Cross % (Auto) 6.0 % (1.0-6.0) 07/23/16 05:10 Eos % (Auto) 4.1 % (1.5-5.0) 07/23/16 05:10 Baso % (Auto) 0.3 % (0.0-3.0) 07/23/16 05:10 Gran # 7.73 (1.4-6.5) H 07/23/16 05:10 Lymph # 1.0 (1.2-3.4) L 07/23/16 05:10 Cross # 0.6 (0.1-0.6) 07/23/16 05:10 Eos # 0.4 (0.0-0.7) 07/23/16 05:10 Baso # 0.03 K/mm3 (0.0-2.0) 07/23/16 05:10 Retic Count 2.17 % (0.5-1.5) H 07/23/16 06:30 PT 23.9 Seconds (9.9-11.8) H 07/22/16 06:45 INR 2.21 (0.93-1.08) H 07/22/16 06:45 APTT 41.3 Seconds (23.7-30.8) H 07/20/16 11:47 Sodium 130 mmol/L (132-148) L 07/23/16 05:10 Potassium 4.9 mmol/L (3.6-5.0) 07/23/16 05:10 Chloride 89 mmol/L (95-110) L 07/23/16 05:10 Carbon Dioxide 25 mmol/L (21-33) 07/23/16 05:10 Anion Gap 21 (10-20) H 07/23/16 05:10 BUN 50 mg/dL (7-21) H 07/23/16 05:10 Creatinine 6.8 mg/dL (0.5-1.4) H 07/23/16 05:10 Est GFR ( Amer) 7 07/23/16 05:10 Est GFR (Non-Af Amer) 6 07/23/16 05:10 POC Glucose (mg/dL) 75 mg/dL (65-110) 07/24/16 04:49 Random Glucose 142 mg/dL (70-110) H 07/23/16 05:10 Hemoglobin A1c 8.0 % (4.2-6.5) H 07/22/16 06:45 Calcium 10.3 mg/dL (8.4-10.5) 07/23/16 05:10 Phosphorus 4.0 mg/dL (2.5-4.5) 07/23/16 06:00 Magnesium 2.4 mg/dL (1.7-2.2) H 07/23/16 06:00 Iron 36 ug/dL (45-180) L 07/23/16 11:15 TIBC 216 ug/dL (265-497) L 07/23/16 11:15 % Saturation 17 % (20-55) L 07/23/16 11:15 Ferritin 771.0 ng/mL 07/23/16 06:30 Total Bilirubin 0.5 mg/dL (0.2-1.3) 07/23/16 05:10 AST 28 U/L (15-39) 07/23/16 05:10 ALT 15 U/L (7-56) 07/23/16 05:10 Alkaline Phosphatase 161 U/L (38-133) H 07/23/16 05:10 Lactate Dehydrogenase 400 U/L (333-699) 07/20/16 11:47 Total Creatine Kinase 43 U/L (35-230) 07/20/16 11:47 Troponin I 0.05 ng/mL D 07/20/16 11:47 Total Protein 7.5 g/dL (5.8-8.3) 07/23/16 05:10 Albumin 3.7 g/dL (3.0-4.8) 07/23/16 05:10 Globulin 3.8 gm/dL 07/23/16 05:10 Albumin/Globulin Ratio 1.0 (1.1-1.8) L 07/23/16 05:10 Triglycerides 114 mg/dL (35-160) 07/22/16 06:45 Cholesterol 122 mg/dL (130-200) L 07/22/16 06:45 LDL Cholesterol Direct 69 mg/dL (0-129) 07/22/16 06:45 HDL Cholesterol 30 mg/dL (29-60) 07/22/16 06:45 Vitamin B12 530 pg/mL (239-931) 07/23/16 06:30 Folate > 20.0 ng/mL 07/23/16 06:30 Thyroxine (T4) 6.3 ug/dL (5.5-11.0) 07/22/16 06:45 TSH 3rd Generation 3.5 MIU/ml (0.46-4.68) 07/22/16 06:45 Digoxin < 0.4 ng/mL (0.8-2.0) L 07/20/16 11:47 Serum Immunofixation See note 07/23/16 11:15 Attending/Attestation - Attestation I have personally seen and examined this patient.: Yes I have fully participated in the care of the patient.: Yes I have reviewed all pertinent clinical information, including history, physical exam and plan: Yes Notes (Text): 08/30/16 08:10 Medical record note made by the resident after discussion with my direction and input after the patient was personally seen and examined by me. I have reviewed the chart and agree that the record reflects my personal performance of history, physical, data review and course for the patient that I have planned.
== END 2016-07-23 20:38 | DRG 637 ==
LOC: ED 11:16 → ERH 14:29 → 2RNO 19:20 → 3RNO 07-22 13:47
PROVIDERS: ADMIT Internal Medicine; ATTEND Internal Medicine
PROC: 5A1D60Z (ICD-10-PCS; principal; 2016-07-20)
DX: E11.65 Type 2 diabetes mellitus with hyperglycemia (principal); N18.6 End stage renal disease; D68.61 Antiphospholipid syndrome; N25.81 Secondary hyperparathyroidism of renal origin; I13.2 Hypertensive heart and chronic kidney disease with heart failure and with stage 5 chronic kidney disease, or end stage renal disease; I50.9 Heart failure, unspecified; E11.622 Type 2 diabetes mellitus with other skin ulcer; L97.829 Non-pressure chronic ulcer of other part of left lower leg with unspecified severity; G20 Parkinson's disease; E11.22 Type 2 diabetes mellitus with diabetic chronic kidney disease; E11.42 Type 2 diabetes mellitus with diabetic polyneuropathy; I25.10 Atherosclerotic heart disease of native coronary artery without angina pectoris; K21.9 Gastro-esophageal reflux disease without esophagitis; N28.1 Cyst of kidney, acquired; F41.9 Anxiety disorder, unspecified; D64.9 Anemia, unspecified; E78.5 Hyperlipidemia, unspecified; E11.51 Type 2 diabetes mellitus with diabetic peripheral angiopathy without gangrene; K57.90 Diverticulosis of intestine, part unspecified, without perforation or abscess without bleeding; F32.9 Major depressive disorder, single episode, unspecified; Z99.2 Dependence on renal dialysis; Z86.718 Personal history of other venous thrombosis and embolism; Z79.01 Long term (current) use of anticoagulants; Z89.511 Acquired absence of right leg below knee; Z89.412 Acquired absence of left great toe; Z95.1 Presence of aortocoronary bypass graft; Z95.5 Presence of coronary angioplasty implant and graft; Z91.19 Patient's noncompliance with other medical treatment and regimen; Z79.84 Long term (current) use of oral hypoglycemic drugs; Z79.82 Long term (current) use of aspirin

== ENCOUNTER 2016-07-23 20:41 | Inpatient (IN) | payer OTHER, BC ==
[2016-07-23 20:51] VITALS: BMI 24.7
[2016-07-23] MEDS ORDERED: Oxycodone/Acetaminophen 5/325 mg Tab PO PRN (21:02)
[2016-07-23] MEDS: Insulin Lispro (humaLOG) LOW Coverage SC SCH (21:42)
[2016-07-23] MEDS ORDERED: Insulin Detemir 100 units/ml Vial (Levemir) SC SCH (22:00)
[2016-07-24] MEDS: Pantoprazole 40 mg EC Tab PO SCH (05:45)
[2016-07-24] MEDS: Insulin Lispro (humaLOG) LOW Coverage SC SCH ×4 (06:34→22:36)
[2016-07-24] MEDS: Insulin Lispro 1 UNITS/0.01 ML SC SCH ×3 (06:34→17:02)
[2016-07-24 07:09] LABS: ADD MANUAL DIFF? NO
[2016-07-24 07:19] LABS: BASO # 0.02 K/mm3 (0.0-2.0); BASO % 0.3 % (0.0-3.0); EOS # 0.4 (0.0-0.7); EOS % 5.5 % (1.5-5.0); GRAN # 4.43 (1.4-6.5); GRAN % 69.8 % (50.0-68.0); HEMATOCRIT 30.6 % (36.0-48.0); LYMPH # 0.9 (1.2-3.4); LYMPH % 14.6 % (22.0-35.0); MEAN CELL VOLUME 86.4 fL (80.0-105.0); MEAN CORPUSCULAR HEMOGLOBIN 27.1 pg (25.0-35.0); MEAN CORPUSCULAR HGB CONC 31.4 g/dl (31.0-37.0); MEAN PLATELET VOLUME 10.3 fl (7.0-11.0); MONO # 0.6 (0.1-0.6); MONO % 9.8 % (1.0-6.0); PLATELET COUNT 249 10^3/uL (120.0-450.0); RED CELL DISTRIBUTION WIDTH 17.5 % (11.5-14.5); WHITE BLOOD COUNT 6.4 10^3/ul (4.5-11.0)
[2016-07-24 07:32] LABS: ALB/GLOB RATIO 0.9 (1.1-1.8); BILIRUBIN,TOTAL 0.6 mg/dL (0.2-1.3); CALCIUM 9.8 mg/dL (8.4-10.5); MAGNESIUM 2.2 mg/dL (1.7-2.2); PHOSPHOROUS 3.7 mg/dL (2.5-4.5); POTASSIUM 4.4 mmol/L (3.6-5.0); TOTAL PROTEIN 7.4 g/dL (5.8-8.3)
--- NOTE | 2016-07-24 09:54 | PN ---
DATE: 07/24/2016 SUBJECTIVE: The patient has no complaints of any headache or dizziness. She said she has had no iss ues with her dialysis. Her pain is controlled. PHYSICAL EXAMINATION: VITAL SIGNS: Temperature is 98.2, pulse of 80, blood pressure is 126/72. GENERAL: The patient comfortable, in no acute distress. HEENT: Anicteric sclerae. Moist mucosa. NECK: No JVD or adenopathy. CARDIAC: S1/S2. No murmurs. No rubs. Regular. RESPIRATORY: Clear to auscultation bilaterally. No wheezes, rales, or rhonchi. Good air entry. ABDOMEN: Bowel sounds are positive, soft, nontender, and nondistended. EXTREMITIES: No edema. Has 1+ pulses. ASSESSMENT: 1. End-stage renal disease, on hemodialysis. 2. Antiphospholipid antibodies, on Coumadin. 3. Coronary artery disease. 4. Peripheral arterial disease. 5. Hypertension ____. 6. Left arteriovenous fistula 7. Diabetes type 2. 8. Chronic anemia. 9. Gastroesophageal reflux disease. 10. Below-knee amputation. PLAN: The patient ____. She is going to continue for her coronary artery disease. She is on aspiri n for her coronary artery disease. She is going to continue with Levemir for her diabetes. She is o n Lipitor for dyslipidemia. She is on amlodipine for her hypertension. She is on Renagel for her se condary hyperparathyroidism. She is on lisinopril for her hypertension. She is going to continue di alysis 3 times a week. Bebo Eller MD cc: [id number] TT: 07/24/2016 09:54:05 Confirmation # [id number] Dictation # [id number] tn
[2016-07-24] MEDS: Multivitamin Vitamin B Complex (Nephro-Vite) Tab PO SCH (10:05)
--- NOTE | 2016-07-24 12:58 | CP.PCM.HP ---
<EmanuelNestor - Last Filed: 07/24/16 13:58> History of Present Illness - History of Present Illness History of Present Illness: HPI: Patient is a 66yo female with past medical history of ESRD on hemodialysis ([facility], [place]), Right-side BKA, Antiphospholipid Antibody syndrome, CAD s/p stent placement and CABG, history of DVT, Parkinson's, GERD, CHF, Hypertension, DM2 that presented accompanied by family member with complaints of lethargy and altered mental status. Patient's family had reported that she had been lethargic at home and was not at her baseline. They reported that she was unable to get out of bed and seemed mentally and physically fatigued. On initial evaluation in the ED, the patient was alert and oriented to person and place. She responded to questions appropriately and had good cognition. Denies chest pain, palpitations, SOB, abdominal pain, nausea, vomiting, fever, chills, cough. Admitted to weakness/fatigue. 12 point ROS as per HPI above otherwise negative PMH: ESRD, Antiphospholipid antibody syndrome, Diabetes type 2, CAD s/p stent placement (05/16), History of DVTs, Parkinsons, GERD PSHx: Right-sided BKA Medications: Reviewed and as per chart Social History: Lives alone, daughter and son help with her care Family history: Noncontributory Allergies: Ciprofloxacin Present on Admission - Present on Admission Any Indicators Present on Admission: No Past Patient History - Infectious Disease Hx of Infectious Diseases: None - Tetanus Immunizations Tetanus Immunization: Unknown - Past Social History Smoking Status: Former Smoker - CARDIAC Hx Cardiac Disorders: Yes Hx Congestive Heart Failure: Yes Hx Hypertension: Yes - PULMONARY Hx Pneumonia: Yes - NEUROLOGICAL Hx Neurological Disorder: Yes (syncope) Hx Dizziness: Yes Hx Parkinson's Disease: Yes (hand tremors) Hx Seizures: Yes (x1) - HEENT Hx HEENT Problems: Yes ([place] l ear, glasses) Hx Cataracts: Yes (BILATERAL CATARACT SURGERY) Hx Deafness: No (denies) - RENAL Date of Last Dialysis Treatment: 07/23/16 - ENDOCRINE/METABOLIC Hx Diabetes Mellitus Type 2: Yes - HEMATOLOGICAL/ONCOLOGICAL Hx Blood Disorders: Yes Hx Anemia: Yes (blood transfusions) - INTEGUMENTARY Hx Dermatological Problems: Yes (RIGHT BKA,LEFT GREAT TOE AMPUTATION) - MUSCULOSKELETAL/RHEUMATOLOGICAL Hx Falls: Yes - GASTROINTESTINAL Hx Gastrointestinal Disorders: Yes (hx c dif/diverticulitis/ reflux) Hx Pancreatitis: Yes Other/Comment: hx colitis had diarrhea x 1 yr and 70 lb weight loss - GENITOURINARY/GYNECOLOGICAL Hx Genitourinary Disorders: No - PSYCHIATRIC Hx Psychophysiologic Disorder: Yes Hx Anxiety: Yes Hx Depression: Yes Hx Emotional Abuse: No Hx Physical Abuse: No Hx Sexual Abuse: No Hx Substance Use: No - SURGICAL HISTORY Hx Amputation: Yes (hx gangrene amputation of left great toe, right bka) Hx Cardiac Catheterization: Yes Hx Coronary Stent: Yes Hx Musculoskeletal Surgery: Yes (right BKA) Other/Comment: LEFT FEMORAL BYPASSl meniscus/ r bka amputation due to ischemia and pain, c section x 2, left upper arm av fistula failed, has right chest wall udall, left great toe amputated due to gangrene - ANESTHESIA Hx Anesthesia: Yes Hx Anesthesia Reactions: No Hx Malignant Hyperthermia: No Meds Allergies/Adverse Reactions: Allergies Allergy/AdvReac Type Severity Reaction Status Date / Time ciprofloxacin Allergy SWELLING Verified 08/29/16 19:29 clarithromycin [From Biaxin] Allergy SWELLING Verified 08/29/16 19:29 pepper Allergy SWELLING Verified 08/29/16 19:29 Physical Exam - Constitutional Appears: Well, Non-toxic, No Acute Distress - Head Exam Head Exam: ATRAUMATIC, NORMAL INSPECTION, NORMOCEPHALIC - Eye Exam Eye Exam: EOMI, PERRL - ENT Exam ENT Exam: Mucous Membranes Moist - Neck Exam Neck exam: Positive for: Normal Inspection - Respiratory Exam Respiratory Exam: Clear to Auscultation Bilateral. absent: Rales, Rhonchi, Wheezes - Cardiovascular Exam Cardiovascular Exam: RRR, +S1, +S2. absent: Gallop, Rubs - GI/Abdominal Exam GI & Abdominal Exam: Normal Bowel Sounds, Soft. absent: Distended, Firm, Guarding, Tenderness - Extremities Exam Additional comments: right BKA - Neurological Exam Neurological exam: Alert, Oriented x3 - Psychiatric Exam Psychiatric exam: Normal Affect, Normal Mood - Skin Skin Exam: Dry, Intact, Normal Color, Warm Results - Vital Signs Recent Vital Signs: Last Vital Signs Temp 98.5 F 07/24/16 10:00 Pulse 61 07/24/16 10:02 Resp 16 07/24/16 10:00 BP 130/54 L 07/24/16 10:05 Pulse Ox 97 04/26/17 10:00 - Labs Result Diagrams: 07/24/16 06:30 07/24/16 06:30 Labs: Laboratory Results - last 24 hr 07/24/16 07/24/16 06:30 06:30 WBC 6.4 D RBC 3.54 Hgb 9.6 L Hct 30.6 L MCV 86.4 MCH 27.1 MCHC 31.4 RDW 17.5 H Plt Count 249 MPV 10.3 Gran % 69.8 H Lymph % (Auto) 14.6 L [place] % (Auto) 9.8 H Eos % (Auto) 5.5 H Baso % (Auto) 0.3 Gran # 4.43 Lymph # 0.9 L [place] # 0.6 Eos # 0.4 Baso # 0.02 Sodium 134 Potassium 4.4 Chloride 92 L Carbon Dioxide 30 Anion Gap 16 BUN 27 H Creatinine 4.4 H Est GFR ( Amer) 12 Est GFR (Non-Af Amer) 10 Random Glucose 103 Calcium 9.8 Phosphorus 3.7 Magnesium 2.2 Total Bilirubin 0.6 AST 29 ALT 19 Alkaline Phosphatase 137 H Total Protein 7.4 Albumin 3.5 Globulin 3.9 Albumin/Globulin Ratio 0.9 L Assessment & Plan - Assessment and Plan (Free Text) Plan: 1. Lethargy -CT Head negative, no acute intracranial abnormalities -MRI Head negative for acute intracranial pathology -Patient alert and oriented on examination; answering questions appropriately -Afebrile, no leukocytosis; no apparent sources of infection -Physical therapy eval/treatment 2. End stage renal disease -Patient on hemodialysis (Tue, Thur, Sat); tolerating well -Continue with renagel and nephro-jerry -Nephrology consulted - Dr. Eller 3. Hypertension -Continue hydralazine, lisinopril, clonidine, norvasc 4. Diabetes Type 2 -Continue basal/bolus insulin regimen as per endocrinology recommendations -Continue humalog low dose ISS -Endocrinology consulted - Dr. Akers 5. CAD -Continue ASA 81, lipitor, coreg 6. Parkinsons -Continue home medication Sinemet 7. History of DVT -Continue warfarin 6mg PO qD 8. GI/DVT prophylaxis -Protonix/Warfarin Disposition: Patient currently undergoing physical therapy treatment in the transitional care unit. Patient seen and case discussed with attending, Dr. Aguirre - Date & Time Date: 07/24/16 Time: 13:02 <Wm Aguirre - Last Filed: 08/30/16 08:11> Results - Vital Signs Recent Vital Signs: Last Vital Signs Temp 98.3 F 08/01/16 10:00 Pulse 63 08/01/16 18:51 Resp 16 08/01/16 10:00 BP 119/78 08/01/16 18:51 Pulse Ox 97 08/01/16 10:00 - Labs Result Diagrams: 08/01/16 06:00 08/01/16 06:00 Attending/Attestation - Attestation I have personally seen and examined this patient.: Yes I have fully participated in the care of the patient.: Yes I have reviewed all pertinent clinical information: Yes Notes (Text): 08/30/16 08:11 Medical record note made by the resident after discussion with my direction and input after the patient was personally seen and examined by me. I have reviewed the chart and agree that the record reflects my personal performance of history, physical, data review and course for the patient that I have planned.
--- NOTE | 2016-07-24 16:29 | CP.PCM.PN ---
<Agnes Aquino - Last Filed: 07/24/16 17:51> Subjective - Date & Time of Evaluation Date of Evaluation: 07/24/16 Time of Evaluation: 16:27 - Subjective Subjective: 66 y/o female seen at bedside with attending Dr. Issa for left heel ulceration. Patient denies any acute events overnight. She is resting comfortably in a chair next to her bed, appears in NAD and AAOx3. Patient denies any pain in her feet. She denies n/f/v/c/d/sob. Objective - Vital Signs/Intake and Output Vital Signs (last 24 hours): Temp Pulse Resp BP Pulse Ox 98.5 F 62 16 142/60 97 07/24/16 10:00 07/24/16 14:32 07/24/16 10:00 07/24/16 14:32 07/24/16 10:00 - Medications Medications: Current Medications Amlodipine Besylate (Norvasc) 10 mg PO DAILY [facility] Last Admin: 07/24/16 10:05 Dose: Not Given Aspirin (Ecotrin) 81 mg PO 0800 [facility] Last Admin: 07/24/16 07:45 Dose: 81 mg Atorvastatin Calcium (Lipitor) 40 mg PO HS [facility] Last Admin: 07/23/16 21:48 Dose: 40 mg Carbidopa/Levodopa (Sinemet 10/100) 1 tab PO TID [facility] Last Admin: 07/24/16 14:33 Dose: 1 tab Carvedilol (Coreg) 6.25 mg PO 0800,1700 [facility] Last Admin: 07/24/16 07:45 Dose: 6.25 mg Clonidine HCl (Catapres) 0.3 mg PO Q12 [facility] Last Admin: 07/24/16 10:02 Dose: Not Given Clopidogrel Bisulfate (Plavix) 75 mg PO 0800 [facility] Last Admin: 07/24/16 08:26 Dose: 75 mg Escitalopram Oxalate (Lexapro) 10 mg PO DAILY [facility] Last Admin: 07/24/16 10:26 Dose: 10 mg Hydralazine HCl (Apresoline) 100 mg PO Q8 [facility] Last Admin: 07/24/16 14:32 Dose: 100 mg Insulin Detemir (Levemir) 16 unit SC HS [facility] Insulin Human Lispro (Humalog) 6 units SC AC [facility] Insulin Human Lispro (Humalog Low) 0 units SC ACHS [facility] PRN Reason: Protocol Labetalol HCl (Trandate) 800 mg PO Q12 [facility] Last Admin: 07/24/16 10:26 Dose: Not Given Lisinopril (Zestril) 80 mg PO DAILY [facility] Last Admin: 07/24/16 10:07 Dose: Not Given Oxycodone/Acetaminophen (Percocet 5/325 Mg Tab) 1 tab PO Q8 PRN PRN Reason: Pain, moderate (4-7) Stop: 07/26/16 22:01 Last Admin: 07/24/16 16:18 Dose: 1 tab Pantoprazole Sodium (Protonix Ec Tab) 40 mg PO 0630 [facility] Last Admin: 07/24/16 05:45 Dose: 40 mg Primidone (Mysoline) 50 mg PO DAILY [facility] Last Admin: 07/24/16 10:05 Dose: 50 mg Sertraline HCl (Zoloft) 25 mg PO DAILY [facility] Last Admin: 07/24/16 10:08 Dose: 25 mg Sevelamer HCl (Renagel) 800 mg PO 0800,1200,1700 [facility] Last Admin: 07/24/16 12:28 Dose: 800 mg Vitamin B Complex/Vit C/Folic Acid (Nephro-Felix) 1 tab PO DAILY [facility] Last Admin: 07/24/16 10:05 Dose: 1 tab Warfarin Sodium (Coumadin) 6 mg PO 1800 [facility] PRN Reason: Protocol - Labs Labs: 07/24/16 06:30 07/24/16 06:30 - Constitutional Appears: Well, Non-toxic, No Acute Distress - Extremities Exam Additional comments: right BKA left: vasc: nonpalpable pedal pulses, CFT < 4 sec to all digits, TG wnl, no edema neuro: grossly diminished derm: full thickness open ulceration at the posterior aspect of heel measuring 0.5cm x 0.5cm x0.2cm - base is mostly granular with mixed fibrotic tissue, minimal serous drainage, no purulence, no malodor, no ascending cellulitis, no fluctuance, no probe to bone ortho: mild pain on palpation to heel - Neurological Exam Neurological Exam: Alert, Awake, Oriented x3 - Psychiatric Exam Psychiatric exam: Normal Affect, Normal Mood Assessment and Plan - Assessment and Plan (Free Text) Assessment: 66 y/o female seen for diabetic left heel ulceration, tejada grade 2 Plan: patient evaluated and chart reviewed seen at bedside with attending Dr. Issa labs and vitals reviewed; WBC 6.4, afebrile Rx santyl to apply daily cleansed wound with sterile saline, applied optifoam to left heel podiatry will continue to monitor while patient remains in house <Elmira Issa - Last Filed: 08/04/16 14:12> Objective - Vital Signs/Intake and Output Vital Signs (last 24 hours): Temp Pulse Resp BP Pulse Ox 98.3 F 63 16 119/78 97 08/01/16 10:00 08/01/16 18:51 08/01/16 10:00 08/01/16 18:51 08/01/16 10:00 - Labs Labs: 08/01/16 06:00 08/01/16 06:00 PT 34.3 Seconds (9.9-11.8) H* 08/01/16 06:00 INR 3.18 (0.93-1.08) H 08/01/16 06:00 APTT 45.1 Seconds (23.7-30.8) H 08/01/16 06:00 Attending/Attestation - Attestation I have personally seen and examined this patient.: Yes I have fully participated in the care of the patient.: Yes I have reviewed all pertinent clinical information, including history, physical exam and plan: Yes
--- NOTE | 2016-07-24 20:29 | PN ---
DATE: 07/24/2016 ROOM: [facility] This is a 66-year-old female with recent uncontrolled type 2 insulin-requiring diabetes, now being fo llowed closely for metabolic management. She was initially seen in the acute medical floor because o f recent hyperglycemic accelerations as noted thereof. Her latest chemistries today showed a BUN of 27, sodium 134, potassium 4.4, chloride 92, CO2 of 30, glucose 103, and creatinine 4.4. She also has progressive renal insufficiency with underlying diabetic and hypertensive nephrosclerosis. Her late st glucose values have ranged from 94-122 mg/dL. It was low normal early this morning at 3:00 a.m. w ith a glucose value of 75. So at this time, we will modify her basal and bolus insulin regimen and l ower the Humalog to 6 units subQ t.i.d. before meals as ordered. We will also lower the Levemir to 1 6 units subQ at bedtime daily to start tonight. We will modify the coverage scale to a low dose algo rithm and detailed orders have been given. We will follow and advise accordingly. Ladonna Akers MD cc: [id number] TT: 07/24/2016 20:28:55 Confirmation # [id number] Dictation # [id number] keagan
[2016-07-24] MEDS: Insulin Detemir 100 units/ml Vial (Levemir) SC SCH (22:58)
[2016-07-25] MEDS: Pantoprazole 40 mg EC Tab PO SCH (06:01)
[2016-07-25] MEDS: Insulin Lispro 1 UNITS/0.01 ML SC SCH ×3 (07:12→18:46)
[2016-07-25] MEDS: Insulin Lispro (humaLOG) LOW Coverage SC SCH ×4 (07:13→22:09)
--- NOTE | 2016-07-25 09:35 | CP.PCM.PN ---
<Agnes Aquino - Last Filed: 07/25/16 09:34> Subjective - Date & Time of Evaluation Date of Evaluation: 07/25/16 Time of Evaluation: 09:34 - Subjective Subjective: 66 y/o female seen at bedside with attending Dr. Issa for left heel ulceration. Patient denies any acute events overnight. She is resting comfortably in a chair next to her bed, appears in NAD and AAOx3. Patient denies any pain in her feet. She denies n/f/v/c/d/sob. Objective - Vital Signs/Intake and Output Vital Signs (last 24 hours): Temp Pulse Resp BP Pulse Ox 98.7 F 53 L 15 130/70 99 07/24/16 16:00 07/25/16 08:16 07/24/16 16:00 07/25/16 08:16 07/24/16 16:00 - Medications Medications: Current Medications Amlodipine Besylate (Norvasc) 10 mg PO DAILY [facility] Last Admin: 07/24/16 10:05 Dose: Not Given Aspirin (Ecotrin) 81 mg PO 0800 [facility] Last Admin: 07/25/16 08:16 Dose: 81 mg Atorvastatin Calcium (Lipitor) 40 mg PO HS [facility] Last Admin: 07/24/16 21:34 Dose: 40 mg Carbidopa/Levodopa (Sinemet 10/100) 1 tab PO TID [facility] Last Admin: 07/24/16 18:05 Dose: 1 tab Carvedilol (Coreg) 6.25 mg PO 0800,1700 [facility] Last Admin: 07/25/16 08:16 Dose: Not Given Clonidine HCl (Catapres) 0.3 mg PO Q12 [facility] Last Admin: 07/24/16 21:33 Dose: 0.3 mg Clopidogrel Bisulfate (Plavix) 75 mg PO 0800 [facility] Last Admin: 07/25/16 08:16 Dose: 75 mg Collagenase (Santyl) 0 gm TOP DAILY [facility] Escitalopram Oxalate (Lexapro) 10 mg PO DAILY [facility] Last Admin: 07/24/16 10:26 Dose: 10 mg Hydralazine HCl (Apresoline) 100 mg PO Q8 [facility] Last Admin: 07/25/16 05:17 Dose: 100 mg Insulin Detemir (Levemir) 16 unit SC [facility] Last Admin: 07/24/16 22:58 Dose: 16 unit Insulin Human Lispro (Humalog) 6 units SC AC [facility] Last Admin: 07/25/16 07:12 Dose: 6 units Insulin Human Lispro (Humalog Low) 0 units SC ACHS [facility] PRN Reason: Protocol Last Admin: 07/25/16 07:13 Dose: Not Given Labetalol HCl (Trandate) 800 mg PO Q12 [facility] Last Admin: 07/24/16 21:35 Dose: 800 mg Lisinopril (Zestril) 80 mg PO DAILY [facility] Last Admin: 07/24/16 10:07 Dose: Not Given Oxycodone/Acetaminophen (Percocet 5/325 Mg Tab) 1 tab PO Q8 PRN PRN Reason: Pain, moderate (4-7) Stop: 07/26/16 22:01 Last Admin: 07/24/16 16:18 Dose: 1 tab Pantoprazole Sodium (Protonix Ec Tab) 40 mg PO 0630 [facility] Last Admin: 07/25/16 06:01 Dose: 40 mg Primidone (Mysoline) 50 mg PO DAILY [facility] Last Admin: 07/24/16 10:05 Dose: 50 mg Sertraline HCl (Zoloft) 25 mg PO DAILY [facility] Last Admin: 07/24/16 10:08 Dose: 25 mg Sevelamer HCl (Renagel) 800 mg PO 0800,1200,1700 [facility] Last Admin: 07/25/16 08:16 Dose: 800 mg Vitamin B Complex/Vit C/Folic Acid (Nephro-Felix) 1 tab PO DAILY [facility] Last Admin: 07/24/16 10:05 Dose: 1 tab Warfarin Sodium (Coumadin) 6 mg PO 1800 [facility] PRN Reason: Protocol Last Admin: 07/24/16 18:01 Dose: 6 mg - Labs Labs: 07/24/16 06:30 07/24/16 06:30 - Constitutional Appears: Well, Non-toxic, No Acute Distress - Extremities Exam Additional comments: right BKA left: vasc: nonpalpable pedal pulses, CFT < 4 sec to all digits, TG wnl, no edema neuro: grossly diminished derm: full thickness open ulceration at the posterior aspect of heel measuring 0.5cm x 0.5cm x0.2cm - base is mostly granular with mixed fibrotic tissue, minimal serous drainage, no purulence, no malodor, no ascending cellulitis, no fluctuance, no probe to bone ortho: mild pain on palpation to heel - Neurological Exam Neurological Exam: Alert, Awake, Oriented x3 - Psychiatric Exam Psychiatric exam: Normal Affect, Normal Mood Assessment and Plan - Assessment and Plan (Free Text) Assessment: 66 y/o female seen for diabetic left heel ulceration, tejada grade 2 Plan: patient evaluated and chart reviewed seen at bedside with attending Dr. Issa labs and vitals reviewed; WBC 6.4, afebrile Rx santyl to apply daily cleansed wound with sterile saline, applied optifoam to left heel podiatry will continue to monitor while patient remains in house <Elmira Issa - Last Filed: 08/04/16 14:14> Objective - Vital Signs/Intake and Output Vital Signs (last 24 hours): Temp Pulse Resp BP Pulse Ox 98.3 F 63 16 119/78 97 08/01/16 10:00 08/01/16 18:51 08/01/16 10:00 08/01/16 18:51 08/01/16 10:00 - Labs Labs: 08/01/16 06:00 08/01/16 06:00 PT 34.3 Seconds (9.9-11.8) H* 08/01/16 06:00 INR 3.18 (0.93-1.08) H 08/01/16 06:00 APTT 45.1 Seconds (23.7-30.8) H 08/01/16 06:00 Attending/Attestation - Attestation I have personally seen and examined this patient.: Yes I have fully participated in the care of the patient.: Yes I have reviewed all pertinent clinical information, including history, physical exam and plan: Yes
[2016-07-25] MEDS: Multivitamin Vitamin B Complex (Nephro-Vite) Tab PO SCH (09:43)
--- NOTE | 2016-07-25 13:37 | PN ---
DATE: 07/25/2016 ROOM: [facility]. This is a 66-year-old female with recent uncontrolled type 2 insulin-requiring diabetes, now being fo llowed closely for metabolic management. Her glycemic levels are fluctuating, but much improved at this time and the latest glucose levels hav e ranged from 174-178 and 273 mg/dL. It was 94 yesterday as noted. The latest chemistry showed a BU N of 27, sodium 134, potassium 4.4, chloride 92, CO2 30, glucose 103 and creatinine 4.4. So at this time, we will continue the same basal and bolus insulin regimen to allow for dose equilibr ation and keep her on the Levemir given as 16 units subQ at bedtime daily as ordered. We will contin ue the Humalog given as 6 units subQ t.i.d. before meals as ordered. We will continue also the low-d ose correction scale using Humalog insulin as given. We will titrate incrementally as indicated to o ptimize metabolic control. We will follow and advise accordingly. Ladonna Akers MD cc: [id number] TT: 07/25/2016 13:36:30 Confirmation # [id number] Dictation # [id number] en
[2016-07-25 14:54] LABS: ADD MANUAL DIFF? NO
[2016-07-25 15:01] LABS: BASO # 0.04 K/mm3 (0.0-2.0); BASO % 0.7 % (0.0-3.0); EOS # 0.3 (0.0-0.7); EOS % 5.7 % (1.5-5.0); GRAN % 74.2 % (50.0-68.0); LYMPH # 0.8 (1.2-3.4); LYMPH % 13.5 % (22.0-35.0); MEAN CELL VOLUME 84.8 fL (80.0-105.0); MEAN CORPUSCULAR HGB CONC 31.8 g/dl (31.0-37.0); MEAN PLATELET VOLUME 10.5 fl (7.0-11.0); MONO # 0.4 (0.1-0.6); MONO % 5.9 % (1.0-6.0); PLATELET COUNT 220 10^3/uL (120.0-450.0); RED CELL DISTRIBUTION WIDTH 17.5 % (11.5-14.5); WHITE BLOOD COUNT 5.9 10^3/ul (4.5-11.0)
[2016-07-25 15:07] LABS: BILIRUBIN,TOTAL 0.6 mg/dL (0.2-1.3); CALCIUM 9.5 mg/dL (8.4-10.5); MAGNESIUM 2.2 mg/dL (1.7-2.2); PHOSPHOROUS 4.2 mg/dL (2.5-4.5); POTASSIUM 4.5 mmol/L (3.6-5.0); TOTAL PROTEIN 6.8 g/dL (5.8-8.3)
--- NOTE | 2016-07-25 18:24 | PN ---
DATE: 07/25/2016 SUBJECTIVE: The patient has no complaints of any chest pain or shortness of breath, no headaches or dizziness. PHYSICAL EXAMINATION: VITAL SIGNS: Temperature is 98.7, pulse , blood pressure 123/56, respirations 15. GENERAL: Patient lying in bed, flat, and in no apparent distress. HEAD AND NECK EXAM: Atraumatic, normocephalic. Conjunctivae are pink. Throat clear and mouth with moist mucosa. Oropharynx benign. EYES: Extraocular movements are intact. PERRLA. NECK: Supple. No JVD, thyromegaly, or adenopathy. No bruits. HEART: S1 and S2 regular rate and rhythm. No murmurs, rubs, or gallops. LUNGS: Clear to auscultation bilaterally. No wheezing rales or rhonchi appreciated. No retraction s on exam. ABDOMEN: Soft, nontender, nondistended. Bowel sounds are positive in all quadrants. No rebound. No hepatosplenomegaly. EXTREMITIES: No cyanosis, clubbing, or edema. NEURO: No facial asymmetry, tongue is midline, no uvula deviation. Power is 5/5 in upper extremity and 5/5 in lower extremity. Sensation is normal in upper extremity and lower extremity. PSYCH: Awake, alert, oriented x3. No anxiety or depression symptoms. Good insight. Normal affec t. : No CVA tenderness VASCULAR: 2+ pulses in carotid and pedal pulses. SKIN: No erythema or abnormal nodules noted. SPINE: Normal curvature. LYMPHADENOPATHY: No anterior cervical or posterior cervical adenopathy. No inguinal adenopathy. LABORATORY DATA: Creatinine is 5.5. Sodium is 129. ASSESSMENT: 1. End-stage renal disease on hemodialysis. 2. Antiphospholipid antibodies on Coumadin. 3. Coronary artery disease. 4. Peripheral arterial disease. 5. Hypertension. 6. Left arteriovenous fistula. 7. Diabetes type 2. 8. Chronic anemia secondary to chronic kidney disease. 9. Gastroesophageal reflux disease. PLAN: The patient is currently comfortable. She is continuing on dialysis. She has a heel ulcer th at is being followed by Dr. Issa. She is on clonidine for her blood pressure. She is on carvedil ol. She is going to continue with Coumadin. She should have her INR followed. She is on primidone. This will be continued. She is on Lipitor for dyslipidemia. She is on Plavix for coronary disease. She is receiving carbidopa/levodopa. She is on Zoloft for anxiety. She is on a renal diet. Bebo Eller MD cc: [phone] TT: 07/25/2016 18:22:59 Confirmation # [id number] Dictation # [id number] ln
--- NOTE | 2016-07-25 19:41 | CP.PCM.PN ---
<Nestor Castellanos - Last Filed: 07/25/16 19:38> Subjective - Date & Time of Evaluation Date of Evaluation: 07/25/16 Time of Evaluation: 07:00 - Subjective Subjective: Medicine progress note - Nestor Emanuel PGY1 Patient seen and examined at bedside. Pt is more alert this morning. States lethargy is improving. Tolerated PT well yesterday, will continue. No acute changes overnight. Denies chest pain, SOB, palpitations, N/V, constipation, diarrhea, headache, dizziness. Objective - Vital Signs/Intake and Output Vital Signs (last 24 hours): Temp Pulse Resp BP Pulse Ox 98.7 F 65 15 159/60 H 99 07/24/16 16:00 07/25/16 18:02 07/24/16 16:00 07/25/16 18:02 07/24/16 16:00 - Medications Medications: Current Medications Amlodipine Besylate (Norvasc) 10 mg PO DAILY [facility] Last Admin: 07/25/16 09:45 Dose: Not Given Aspirin (Ecotrin) 81 mg PO 0800 [facility] Last Admin: 07/25/16 08:16 Dose: 81 mg Atorvastatin Calcium (Lipitor) 40 mg PO HS [facility] Last Admin: 07/24/16 21:34 Dose: 40 mg Carbidopa/Levodopa (Sinemet 10/100) 1 tab PO TID [facility] Last Admin: 07/25/16 18:05 Dose: 1 tab Carvedilol (Coreg) 6.25 mg PO 0800,1700 [facility] Last Admin: 07/25/16 18:02 Dose: 6.25 mg Clonidine HCl (Catapres) 0.3 mg PO Q12 [facility] Last Admin: 07/25/16 09:42 Dose: Not Given Clopidogrel Bisulfate (Plavix) 75 mg PO 0800 [facility] Last Admin: 07/25/16 08:16 Dose: 75 mg Collagenase (Santyl) 0 gm TOP DAILY [facility] Escitalopram Oxalate (Lexapro) 10 mg PO DAILY [facility] Last Admin: 07/25/16 09:42 Dose: 10 mg Hydralazine HCl (Apresoline) 100 mg PO Q8 [facility] Last Admin: 07/25/16 13:14 Dose: Not Given Insulin Detemir (Levemir) 16 unit SC HS [facility] Last Admin: 07/24/16 22:58 Dose: 16 unit Insulin Human Lispro (Humalog) 6 units SC AC [facility] Last Admin: 07/25/16 18:46 Dose: 6 units Insulin Human Lispro (Humalog Low) 0 units SC ACHS [facility] PRN Reason: Protocol Last Admin: 07/25/16 18:47 Dose: Not Given Labetalol HCl (Trandate) 800 mg PO Q12 [facility] Last Admin: 07/25/16 09:46 Dose: Not Given Lisinopril (Zestril) 80 mg PO DAILY [facility] Last Admin: 07/25/16 09:46 Dose: Not Given Oxycodone/Acetaminophen (Percocet 5/325 Mg Tab) 1 tab PO Q8 PRN PRN Reason: Pain, moderate (4-7) Stop: 07/26/16 22:01 Last Admin: 07/24/16 16:18 Dose: 1 tab Pantoprazole Sodium (Protonix Ec Tab) 40 mg PO 0630 [facility] Last Admin: 07/25/16 06:01 Dose: 40 mg Primidone (Mysoline) 50 mg PO DAILY [facility] Last Admin: 07/25/16 09:42 Dose: 50 mg Sertraline HCl (Zoloft) 25 mg PO DAILY [facility] Last Admin: 07/25/16 09:46 Dose: 25 mg Sevelamer HCl (Renagel) 800 mg PO 0800,1200,1700 [facility] Last Admin: 07/25/16 18:05 Dose: 800 mg Vitamin B Complex/Vit C/Folic Acid (Nephro-Jerry) 1 tab PO DAILY [facility] Last Admin: 07/25/16 09:43 Dose: 1 tab Warfarin Sodium (Coumadin) 6 mg PO 1800 [facility] PRN Reason: Protocol Last Admin: 07/25/16 18:03 Dose: 6 mg - Labs Labs: 07/25/16 14:20 07/25/16 14:20 - Constitutional Appears: Well, Non-toxic, No Acute Distress - Head Exam Head Exam: ATRAUMATIC, NORMAL INSPECTION, NORMOCEPHALIC - Eye Exam Eye Exam: EOMI Pupil Exam: PERRL - ENT Exam ENT Exam: Mucous Membranes Moist - Neck Exam Neck Exam: Normal Inspection - Respiratory Exam Respiratory Exam: Clear to Ausculation Bilateral. absent: Rales, Rhonchi, Wheezes - Cardiovascular Exam Cardiovascular Exam: RRR, +S1, +S2. absent: Gallop, Rubs - GI/Abdominal Exam GI & Abdominal Exam: Soft, Normal Bowel Sounds. absent: Distended, Firm, Guarding, Rigid, Tenderness - Extremities Exam Additional comments: right BKA - Neurological Exam Neurological Exam: Alert, Awake, Oriented x3 - Psychiatric Exam Psychiatric exam: Normal Affect, Normal Mood - Skin Skin Exam: Dry, Intact, Normal Color, Warm Assessment and Plan - Assessment and Plan (Free Text) Plan: 1. Lethargy * CT head negative, no acute intracranial abnormalities * MRI head negative for acute intracranial pathology * Patient alert and oriented on examination; answering questions appropriately * Afebrile, no leukocytosis; no apparent sources of infection * Currently undergoing physical therapy in the TCU due to deconditioning; tolerating diet well 2. End stage renal disease * Patient on hemodialysis (Fri, , Fri); tolerating well * Continue with renagel and nephro-jerry * Nephrology consulted - Dr. Eller 3. Hypertension * Continue hydralazine, lisinopril, clonidine, norvasc 4. Diabetes Type 2 * Continue basal/bolus insulin regimen as per endocrinology recommendations * Continue humalog low dose ISS * Endocrinology consulted - Dr. Akers 5. CAD * Continue ASA 81, lipitor, coreg 6. Parkinsons * Continue home medication Sinemet 7. History of DVT * Continue warfarin 6mg PO qd 8. GI/DVT prophylaxis * protonix/warfarin Disposition: Patient currently undergoing PT treatment in TCU. Patient seen, reviewed, and case discussed with attending, Carla Arnold. <Wm Aguirre - Last Filed: 08/30/16 08:11> Objective - Vital Signs/Intake and Output Vital Signs (last 24 hours): Temp Pulse Resp BP Pulse Ox 98.3 F 63 16 119/78 97 08/01/16 10:00 08/01/16 18:51 08/01/16 10:00 08/01/16 18:51 08/01/16 10:00 - Labs Labs: 08/01/16 06:00 08/01/16 06:00 PT 34.3 Seconds (9.9-11.8) H* 08/01/16 06:00 INR 3.18 (0.93-1.08) H 08/01/16 06:00 APTT 45.1 Seconds (23.7-30.8) H 08/01/16 06:00 Attending/Attestation - Attestation I have personally seen and examined this patient.: Yes I have fully participated in the care of the patient.: Yes I have reviewed all pertinent clinical information, including history, physical exam and plan: Yes Notes (Text): 08/30/16 08:11 Medical record note made by the resident after discussion with my direction and input after the patient was personally seen and examined by me. I have reviewed the chart and agree that the record reflects my personal performance of history, physical, data review and course for the patient that I have planned.
[2016-07-25] MEDS: Insulin Detemir 100 units/ml Vial (Levemir) SC SCH (22:09)
[2016-07-26] MEDS: Pantoprazole 40 mg EC Tab PO SCH (05:44)
[2016-07-26] MEDS: Insulin Lispro 1 UNITS/0.01 ML SC SCH ×3 (06:38→17:30)
[2016-07-26] MEDS: Insulin Lispro (humaLOG) LOW Coverage SC SCH ×4 (06:39→21:59)
[2016-07-26] MEDS: Collagenase 250 Units/gm Ointment(30 gm) TOP SCH ×2 (08:11→12:28)
--- NOTE | 2016-07-26 10:59 | CP.PCM.PN ---
<Agnes Aquino - Last Filed: 07/26/16 10:57> Subjective - Date & Time of Evaluation Date of Evaluation: 07/26/16 Time of Evaluation: 10:57 - Subjective Subjective: 66 y/o female seen at bedside for left heel ulceration. Patient denies any acute events overnight. She is resting comfortably in bed, appears in NAD and AAOx3. Patient denies any pain in her left foot. She denies n/f/v/c/d/sob. Objective - Vital Signs/Intake and Output Vital Signs (last 24 hours): Temp Pulse Resp BP Pulse Ox 98.4 F 60 16 138/59 L 95 07/26/16 10:00 07/26/16 10:00 07/26/16 10:00 07/26/16 10:00 07/26/16 06:00 - Medications Medications: Current Medications Amlodipine Besylate (Norvasc) 10 mg PO DAILY [facility] Last Admin: 07/25/16 09:45 Dose: Not Given Aspirin (Ecotrin) 81 mg PO 0800 [facility] Last Admin: 07/26/16 08:10 Dose: 81 mg Atorvastatin Calcium (Lipitor) 40 mg PO HS [facility] Last Admin: 07/25/16 22:07 Dose: 40 mg Carbidopa/Levodopa (Sinemet 10/100) 1 tab PO TID [facility] Last Admin: 07/25/16 18:05 Dose: 1 tab Carvedilol (Coreg) 6.25 mg PO 0800,1700 [facility] Last Admin: 07/26/16 08:10 Dose: 6.25 mg Clonidine HCl (Catapres) 0.3 mg PO Q12 [facility] Last Admin: 07/25/16 22:06 Dose: 0.3 mg Clopidogrel Bisulfate (Plavix) 75 mg PO 0800 [facility] Last Admin: 07/26/16 08:10 Dose: 75 mg Collagenase (Santyl) 0 gm TOP DAILY [facility] Last Admin: 07/26/16 08:11 Dose: 1 applic Escitalopram Oxalate (Lexapro) 10 mg PO DAILY [facility] Last Admin: 07/25/16 09:42 Dose: 10 mg Hydralazine HCl (Apresoline) 100 mg PO Q8 [facility] Last Admin: 07/26/16 05:43 Dose: 100 mg Insulin Detemir (Levemir) 16 unit SC [facility] Last Admin: 07/25/16 22:09 Dose: 16 unit Insulin Human Lispro (Humalog) 6 units SC AC [facility] Last Admin: 07/26/16 06:38 Dose: 6 units Insulin Human Lispro (Humalog Low) 0 units SC ACHS [facility] PRN Reason: Protocol Last Admin: 07/26/16 06:39 Dose: Not Given Labetalol HCl (Trandate) 800 mg PO Q12 [facility] Last Admin: 07/25/16 22:08 Dose: 800 mg Lisinopril (Zestril) 80 mg PO DAILY [facility] Last Admin: 07/25/16 09:46 Dose: Not Given Oxycodone/Acetaminophen (Percocet 5/325 Mg Tab) 1 tab PO Q8 PRN PRN Reason: Pain, moderate (4-7) Stop: 07/26/16 22:01 Last Admin: 07/24/16 16:18 Dose: 1 tab Pantoprazole Sodium (Protonix Ec Tab) 40 mg PO 0630 [facility] Last Admin: 07/26/16 05:44 Dose: 40 mg Primidone (Mysoline) 50 mg PO DAILY [facility] Last Admin: 07/25/16 09:42 Dose: 50 mg Sertraline HCl (Zoloft) 25 mg PO DAILY [facility] Last Admin: 07/25/16 09:46 Dose: 25 mg Sevelamer HCl (Renagel) 800 mg PO 0800,1200,1700 [facility] Last Admin: 07/26/16 08:11 Dose: 800 mg Vitamin B Complex/Vit C/Folic Acid (Nephro-Felix) 1 tab PO DAILY [facility] Last Admin: 07/25/16 09:43 Dose: 1 tab Warfarin Sodium (Coumadin) 6 mg PO 1800 [facility] PRN Reason: Protocol Last Admin: 07/25/16 18:03 Dose: 6 mg - Labs Labs: 07/25/16 14:20 07/25/16 14:20 - Constitutional Appears: Well, Non-toxic, No Acute Distress - Extremities Exam Additional comments: right BKA left: vasc: nonpalpable pedal pulses, CFT < 4 sec to all digits, TG wnl, no edema neuro: grossly diminished derm: full thickness open ulceration at the posterior aspect of heel measuring 0.5cm x 0.5cm x0.2cm - base is mostly granular with mixed fibrotic tissue, minimal serous drainage, no purulence, no malodor, no ascending cellulitis, no fluctuance, no probe to bone ortho: mild pain on palpation to heel - Neurological Exam Neurological Exam: Alert, Awake, Oriented x3 - Psychiatric Exam Psychiatric exam: Normal Affect, Normal Mood Assessment and Plan - Assessment and Plan (Free Text) Assessment: 66 y/o female seen for diabetic left heel ulceration, tejada grade 2 Plan: patient evaluated and chart reviewed discussed in detail with attending Dr. Gay labs and vitals reviewed; WBC 5.9, afebrile cleansed wound with sterile saline, applied santyl, optifoam to left heel continue wearing multipodus boot while in bed podiatry will continue to monitor while patient remains in house <Dany Gay - Last Filed: 07/26/16 15:22> Objective - Vital Signs/Intake and Output Vital Signs (last 24 hours): Temp Pulse Resp BP Pulse Ox 98.4 F 60 16 138/59 L 95 07/26/16 10:00 07/26/16 11:00 07/26/16 10:00 07/26/16 11:00 07/26/16 06:00 - Medications Medications: Current Medications Amlodipine Besylate (Norvasc) 10 mg PO DAILY [facility] PRN Reason: Protocol Aspirin (Ecotrin) 81 mg PO 0800 [facility] Last Admin: 07/26/16 08:10 Dose: 81 mg Atorvastatin Calcium (Lipitor) 40 mg PO HS [facility] Last Admin: 07/25/16 22:07 Dose: 40 mg Carbidopa/Levodopa (Sinemet 10/100) 1 tab PO TID [facility] Last Admin: 07/26/16 11:00 Dose: 1 tab Carvedilol (Coreg) 6.25 mg PO 0800,1700 [facility] Last Admin: 07/26/16 08:10 Dose: 6.25 mg Clonidine HCl (Catapres) 0.3 mg PO Q12 PRN; Protocol PRN Reason: HTN Clopidogrel Bisulfate (Plavix) 75 mg PO 0800 [facility] Last Admin: 07/26/16 08:10 Dose: 75 mg Collagenase (Santyl) 0 gm TOP DAILY [facility] Last Admin: 07/26/16 12:28 Dose: Not Given Escitalopram Oxalate (Lexapro) 10 mg PO DAILY [facility] Last Admin: 07/26/16 11:00 Dose: 10 mg Hydralazine HCl (Apresoline) 100 mg PO Q8 [facility] Last Admin: 07/26/16 05:43 Dose: 100 mg Insulin Detemir (Levemir) 16 unit SC HS [facility] Last Admin: 07/25/16 22:09 Dose: 16 unit Insulin Human Lispro (Humalog) 6 units SC AC [facility] Last Admin: 07/26/16 12:25 Dose: 6 units Insulin Human Lispro (Humalog Low) 0 units SC ACHS [facility] PRN Reason: Protocol Last Admin: 07/26/16 12:26 Dose: 1 units Labetalol HCl (Trandate) 800 mg PO Q12 [facility] Last Admin: 07/26/16 11:00 Dose: 800 mg Lisinopril (Zestril) 80 mg PO DAILY [facility] Last Admin: 07/26/16 11:00 Dose: 80 mg Oxycodone/Acetaminophen (Percocet 5/325 Mg Tab) 1 tab PO Q8 PRN PRN Reason: Pain, moderate (4-7) Stop: 07/26/16 22:01 Last Admin: 07/24/16 16:18 Dose: 1 tab Pantoprazole Sodium (Protonix Ec Tab) 40 mg PO 0630 [facility] Last Admin: 07/26/16 05:44 Dose: 40 mg Primidone (Mysoline) 50 mg PO DAILY [facility] Last Admin: 07/26/16 11:00 Dose: 50 mg Sertraline HCl (Zoloft) 25 mg PO DAILY [facility] Last Admin: 07/26/16 11:00 Dose: 25 mg Sevelamer HCl (Renagel) 800 mg PO 0800,1200,1700 [facility] Last Admin: 07/26/16 12:30 Dose: 800 mg Vitamin B Complex/Vit C/Folic Acid (Nephro-Felix) 1 tab PO DAILY [facility] Last Admin: 07/26/16 11:00 Dose: 1 tab Warfarin Sodium (Coumadin) 6 mg PO 1800 [facility] PRN Reason: Protocol Last Admin: 07/25/16 18:03 Dose: 6 mg - Labs Labs: 07/25/16 14:20 07/25/16 14:20 Attending/Attestation - Attestation I have personally seen and examined this patient.: Yes I have fully participated in the care of the patient.: Yes I have reviewed all pertinent clinical information, including history, physical exam and plan: Yes
[2016-07-26] MEDS: Multivitamin Vitamin B Complex (Nephro-Vite) Tab PO SCH (11:00)
--- NOTE | 2016-07-26 13:15 | PN ---
DATE: 07/26/2016 ROOM: [address] [facility]. SUBJECTIVE: This is a 66-year-old female with recent uncontrolled type 2 insulin-requiring diabetes now being followed closely for metabolic management. Her glycemic levels are fluctuating, but much i mproved at this time and the latest glucose levels have ranged from 174-178 and 273 mg/dL. Her lates t chemistries showed a BUN of 43, sodium 129, potassium 4.5, chloride 93, CO2 26, glucose 113, and cr eatinine 5.5. So, at this time, we will continue the same basal and bolus insulin regimen to allow f or dose equilibration and keep her on the Humalog given as 6 units subQ t.i.d. before meals as ordere d. We will continue the Levemir given as 16 units subQ at bedtime daily as given. We will titrate i ncrementally as indicated to optimize metabolic control. We will obtain serial chemistries and suppl ement accordingly as needed. We will follow. Ladonna Akers MD cc: [id number] TT: 07/26/2016 13:14:53 Confirmation # [id number] Dictation # [id number]
--- NOTE | 2016-07-26 14:40 | CP.PCM.PN ---
<Nestor Castellanos - Last Filed: 07/26/16 14:36> Subjective - Date & Time of Evaluation Date of Evaluation: 07/26/16 Time of Evaluation: 14:36 - Subjective Subjective: Medicine progress note - Nestor Castellanos PGY1 Patient seen and examined at bedside. Tolerating PT well. No acute changes overnight. Denies chest pain, SOB, palpitations, N/V, constipation, diarrhea, headache, dizziness. Objective - Vital Signs/Intake and Output Vital Signs (last 24 hours): Temp Pulse Resp BP Pulse Ox 98.4 F 60 16 138/59 L 95 07/26/16 10:00 07/26/16 11:00 07/26/16 10:00 07/26/16 11:00 07/26/16 06:00 - Medications Medications: Current Medications Amlodipine Besylate (Norvasc) 10 mg PO DAILY [facility] PRN Reason: Protocol Aspirin (Ecotrin) 81 mg PO 0800 [facility] Last Admin: 07/26/16 08:10 Dose: 81 mg Atorvastatin Calcium (Lipitor) 40 mg PO HS [facility] Last Admin: 07/25/16 22:07 Dose: 40 mg Carbidopa/Levodopa (Sinemet 10/100) 1 tab PO TID [facility] Last Admin: 07/26/16 11:00 Dose: 1 tab Carvedilol (Coreg) 6.25 mg PO 0800,1700 [facility] Last Admin: 07/26/16 08:10 Dose: 6.25 mg Clonidine HCl (Catapres) 0.3 mg PO Q12 PRN; Protocol PRN Reason: HTN Clopidogrel Bisulfate (Plavix) 75 mg PO 0800 [facility] Last Admin: 07/26/16 08:10 Dose: 75 mg Collagenase (Santyl) 0 gm TOP DAILY [facility] Last Admin: 07/26/16 12:28 Dose: Not Given Escitalopram Oxalate (Lexapro) 10 mg PO DAILY [facility] Last Admin: 07/26/16 11:00 Dose: 10 mg Hydralazine HCl (Apresoline) 100 mg PO Q8 [facility] Last Admin: 07/26/16 05:43 Dose: 100 mg Insulin Detemir (Levemir) 16 unit SC HS [facility] Last Admin: 07/25/16 22:09 Dose: 16 unit Insulin Human Lispro (Humalog) 6 units SC AC [facility] Last Admin: 07/26/16 12:25 Dose: 6 units Insulin Human Lispro (Humalog Low) 0 units SC ACHS [facility] PRN Reason: Protocol Last Admin: 07/26/16 12:26 Dose: 1 units Labetalol HCl (Trandate) 800 mg PO Q12 [facility] Last Admin: 07/26/16 11:00 Dose: 800 mg Lisinopril (Zestril) 80 mg PO DAILY [facility] Last Admin: 07/26/16 11:00 Dose: 80 mg Oxycodone/Acetaminophen (Percocet 5/325 Mg Tab) 1 tab PO Q8 PRN PRN Reason: Pain, moderate (4-7) Stop: 07/26/16 22:01 Last Admin: 07/24/16 16:18 Dose: 1 tab Pantoprazole Sodium (Protonix Ec Tab) 40 mg PO 0630 [facility] Last Admin: 07/26/16 05:44 Dose: 40 mg Primidone (Mysoline) 50 mg PO DAILY [facility] Last Admin: 07/26/16 11:00 Dose: 50 mg Sertraline HCl (Zoloft) 25 mg PO DAILY [facility] Last Admin: 07/26/16 11:00 Dose: 25 mg Sevelamer HCl (Renagel) 800 mg PO 0800,1200,1700 [facility] Last Admin: 07/26/16 12:30 Dose: 800 mg Vitamin B Complex/Vit C/Folic Acid (Nephro-Jerry) 1 tab PO DAILY [facility] Last Admin: 07/26/16 11:00 Dose: 1 tab Warfarin Sodium (Coumadin) 6 mg PO 1800 [facility] PRN Reason: Protocol Last Admin: 07/25/16 18:03 Dose: 6 mg - Labs Labs: 07/25/16 14:20 07/25/16 14:20 - Constitutional Appears: Non-toxic, No Acute Distress - Head Exam Head Exam: ATRAUMATIC, NORMAL INSPECTION, NORMOCEPHALIC - Eye Exam Eye Exam: EOMI, PERRL - ENT Exam ENT Exam: Mucous Membranes Moist - Neck Exam Neck Exam: Normal Inspection - Respiratory Exam Respiratory Exam: Clear to Ausculation Bilateral. absent: Rales, Rhonchi, Wheezes - Cardiovascular Exam Cardiovascular Exam: RRR, +S1, +S2. absent: Diastolic murmur, Gallop, Rubs, Murmur - GI/Abdominal Exam GI & Abdominal Exam: Soft, Normal Bowel Sounds. absent: Distended, Firm, Guarding, Rigid, Tenderness, Rebound - Extremities Exam Additional comments: right BKA - Neurological Exam Neurological Exam: Alert, Awake, Oriented x3 - Psychiatric Exam Psychiatric exam: Normal Affect, Normal Mood - Skin Skin Exam: Dry, Intact, Normal Color, Warm Assessment and Plan - Assessment and Plan (Free Text) Plan: 1. Lethargy * CT head negative, no acute intracranial abnormalities * MRI head negative for acute intracranial pathology * Afebrile, no leukocytosis; no apparent sources of infection * Currently undergoing physical therapy in the TCU due to deconditioning; tolerating diet well; She appears more alert and less fatigued than she has been in the last couple of days. Encouraged her to continue with physical therapy as tolerated. 2. End stage renal disease * Patient on hemodialysis (e, lacy, Fri); tolerating well * Continue with renagel and nephro-jerry * Nephrology consulted - Dr. Eller 3. Hypertension * Continue hydralazine, lisinopril, clonidine, norvasc 4. Diabetes Type 2 * Continue basal/bolus insulin regimen as per endocrinology recommendations * Continue humalog low dose ISS * Endocrinology consulted - Dr. Akers 5. CAD * Continue ASA 81, lipitor, coreg 6. Parkinsons * Continue home medication Sinemet 7. History of DVT * Continue warfarin 6mg PO qd 8. GI/DVT prophylaxis * protonix/warfarin Patient seen, reviewed, and case discussed with attending, Dr. Morton <Alexey Morton - Last Filed: 08/02/16 09:23> Objective - Vital Signs/Intake and Output Vital Signs (last 24 hours): Temp Pulse Resp BP Pulse Ox 98.3 F 63 16 119/78 97 08/01/16 10:00 08/01/16 18:51 08/01/16 10:00 08/01/16 18:51 08/01/16 10:00 - Labs Labs: 08/01/16 06:00 08/01/16 06:00 PT 34.3 Seconds (9.9-11.8) H* 08/01/16 06:00 INR 3.18 (0.93-1.08) H 08/01/16 06:00 APTT 45.1 Seconds (23.7-30.8) H 08/01/16 06:00 Attending/Attestation - Attestation I have personally seen and examined this patient.: Yes I have fully participated in the care of the patient.: Yes I have reviewed all pertinent clinical information, including history, physical exam and plan: Yes Notes (Text): 08/02/16 09:23 Medical record note made by the resident after discussion with my direction and input after the patient was personally seen and examined by me. I have reviewed the chart and agree that the record accurately reflects by personal performance of the history, physical exam, data review, and medical decision-making, in the course for the patient. I have also personally directed the plan of care.
[2016-07-26] MEDS: Insulin Detemir 100 units/ml Vial (Levemir) SC SCH (21:51)
[2016-07-27] MEDS: Pantoprazole 40 mg EC Tab PO SCH (06:07)
[2016-07-27] MEDS: Insulin Lispro 1 UNITS/0.01 ML SC SCH ×3 (06:41→17:52)
[2016-07-27] MEDS: Insulin Lispro (humaLOG) LOW Coverage SC SCH ×4 (06:42→22:33)
[2016-07-27 07:58] LABS: ADD MANUAL DIFF? NO
[2016-07-27 08:05] LABS: BASO # 0.05 K/mm3 (0.0-2.0); BASO % 0.9 % (0.0-3.0); EOS # 0.3 (0.0-0.7); EOS % 5.6 % (1.5-5.0); GRAN # 3.72 (1.4-6.5); GRAN % 65.5 % (50.0-68.0); HEMATOCRIT 32.6 % (36.0-48.0); LYMPH # 1.1 (1.2-3.4); LYMPH % 19.9 % (22.0-35.0); MEAN CELL VOLUME 86.2 fL (80.0-105.0); MEAN CORPUSCULAR HEMOGLOBIN 26.7 pg (25.0-35.0); MEAN PLATELET VOLUME 11.1 fl (7.0-11.0); MONO # 0.5 (0.1-0.6); MONO % 8.1 % (1.0-6.0); PLATELET COUNT 235 10^3/uL (120.0-450.0); WHITE BLOOD COUNT 5.7 10^3/ul (4.5-11.0)
[2016-07-27 08:11] LABS: ALB/GLOB RATIO 0.9 (1.1-1.8); BILIRUBIN,TOTAL 0.5 mg/dL (0.2-1.3); POTASSIUM 4.1 mmol/L (3.6-5.0); TOTAL PROTEIN 7.6 g/dL (5.8-8.3)
--- NOTE | 2016-07-27 09:16 | CP.PCM.PN ---
<Karolyn Solis - Last Filed: 07/27/16 09:12> Subjective - Date & Time of Evaluation Date of Evaluation: 07/27/16 Time of Evaluation: 08:15 - Subjective Subjective: 66 y/o female seen at bedside w/ Dr. Gay for f/u of left heel ulceration. Pt seen resting comfortably in bed at time of visit. Denies any acute events overnight. Denies pain or discomfort to the foot at this time. Denies f/n/v/c/ sob/cp. Denies any other pedal complaints. Objective - Vital Signs/Intake and Output Vital Signs (last 24 hours): Temp Pulse Resp BP Pulse Ox 98.3 F 54 L 18 151/57 H 97 07/26/16 16:03 07/27/16 08:11 07/26/16 16:03 07/27/16 08:11 07/26/16 16:03 - Medications Medications: Current Medications Amlodipine Besylate (Norvasc) 10 mg PO DAILY [facility] PRN Reason: Protocol Last Admin: 07/26/16 17:59 Dose: 10 mg Aspirin (Ecotrin) 81 mg PO 0800 [facility] Last Admin: 07/27/16 08:12 Dose: 81 mg Atorvastatin Calcium (Lipitor) 40 mg PO HS [facility] Last Admin: 07/26/16 21:49 Dose: 40 mg Carbidopa/Levodopa (Sinemet 10/100) 1 tab PO TID [facility] Last Admin: 07/26/16 17:58 Dose: 1 tab Carvedilol (Coreg) 6.25 mg PO 0800,1700 [facility] Last Admin: 07/27/16 08:11 Dose: Not Given Clonidine HCl (Catapres) 0.3 mg PO Q12 PRN; Protocol PRN Reason: HTN Clopidogrel Bisulfate (Plavix) 75 mg PO 0800 [facility] Last Admin: 07/27/16 08:16 Dose: 75 mg Collagenase (Santyl) 0 gm TOP DAILY [facility] Last Admin: 07/26/16 12:28 Dose: Not Given Escitalopram Oxalate (Lexapro) 10 mg PO DAILY [facility] Last Admin: 07/26/16 11:00 Dose: 10 mg Hydralazine HCl (Apresoline) 100 mg PO Q8 [facility] Last Admin: 07/27/16 06:08 Dose: 100 mg Insulin Detemir (Levemir) 16 unit SC [facility] Last Admin: 07/26/16 21:51 Dose: 16 unit Insulin Human Lispro (Humalog) 6 units SC AC [facility] Last Admin: 07/27/16 06:41 Dose: Not Given Insulin Human Lispro (Humalog Low) 0 units SC ACHS [facility] PRN Reason: Protocol Last Admin: 07/27/16 06:42 Dose: Not Given Labetalol HCl (Trandate) 800 mg PO Q12 [facility] Last Admin: 07/26/16 21:51 Dose: 800 mg Lisinopril (Zestril) 80 mg PO DAILY [facility] Last Admin: 07/26/16 11:00 Dose: 80 mg Pantoprazole Sodium (Protonix Ec Tab) 40 mg PO 0630 [facility] Last Admin: 07/27/16 06:07 Dose: 40 mg Primidone (Mysoline) 50 mg PO DAILY [facility] Last Admin: 07/26/16 11:00 Dose: 50 mg Sertraline HCl (Zoloft) 25 mg PO DAILY [facility] Last Admin: 07/26/16 11:00 Dose: 25 mg Sevelamer HCl (Renagel) 800 mg PO 0800,1200,1700 [facility] Last Admin: 07/27/16 08:16 Dose: 800 mg Vitamin B Complex/Vit C/Folic Acid (Nephro-Felix) 1 tab PO DAILY [facility] Last Admin: 07/26/16 11:00 Dose: 1 tab Warfarin Sodium (Coumadin) 6 mg PO 1800 [facility] PRN Reason: Protocol Last Admin: 07/26/16 17:53 Dose: 6 mg - Labs Labs: 07/27/16 07:00 07/27/16 07:00 - Constitutional Appears: Well, Non-toxic, No Acute Distress - Extremities Exam Extremities Exam: absent: Calf Tenderness Additional comments: Lower extremity exam: Right: BKA Left: vasc: nonpalpable pedal pulses, CFT < 4 sec to all digits, TG wnl, no edema neuro: grossly diminished derm: full thickness open ulceration at the posterior aspect of heel measuring 0.5cm x 0.5cm x0.2cm - base is mostly granular with mixed fibrotic tissue, minimal serous drainage, no purulence, no malodor, no ascending cellulitis, no fluctuance, no probe to bone ortho: mild pain on palpation to heel - Neurological Exam Neurological Exam: Alert, Awake, Oriented x3 - Psychiatric Exam Psychiatric exam: Normal Affect, Normal Mood Assessment and Plan - Assessment and Plan (Free Text) Assessment: 66 y/o female seen for diabetic left heel ulceration, tejada grade 2 Plan: Pt S&E at bedside w/ Dr. Gay Chart, labs and vitals reviewed: afebrile, no leukocytosis Left heel cleansed w/ sterile saline, applied santyl and optifoam to the left heel Advise pt to continue wearing the multipodus boots at all times in bed podiatry will continue to monitor while patient remains in house <Dany Gay - Last Filed: 07/30/16 08:16> Objective - Vital Signs/Intake and Output Vital Signs (last 24 hours): Temp Pulse Resp BP Pulse Ox 98.2 F 63 20 167/65 H 100 07/29/16 16:00 07/30/16 05:44 07/29/16 16:00 07/30/16 05:44 07/29/16 16:00 - Medications Medications: Current Medications Acetaminophen (Tylenol 325mg Tab) 650 mg PO Q6H PRN PRN Reason: Pain, moderate (4-7) Amlodipine Besylate (Norvasc) 10 mg PO DAILY [facility] PRN Reason: Protocol Last Admin: 07/29/16 10:32 Dose: Not Given Aspirin (Ecotrin) 81 mg PO 0800 [facility] Last Admin: 07/29/16 08:08 Dose: 81 mg Atorvastatin Calcium (Lipitor) 40 mg PO HS [facility] Last Admin: 07/29/16 21:38 Dose: 40 mg Carbidopa/Levodopa (Sinemet 10/100) 1 tab PO TID [facility] Last Admin: 07/29/16 17:31 Dose: 1 tab Carvedilol (Coreg) 6.25 mg PO 0800,1700 [facility] Last Admin: 07/29/16 17:27 Dose: 6.25 mg Clonidine HCl (Catapres) 0.3 mg PO Q12 PRN; Protocol PRN Reason: HTN Clopidogrel Bisulfate (Plavix) 75 mg PO 0800 [facility] Last Admin: 07/29/16 08:10 Dose: 75 mg Collagenase (Santyl) 0 gm TOP DAILY [facility] Last Admin: 07/29/16 10:34 Dose: 1 applic Escitalopram Oxalate (Lexapro) 10 mg PO DAILY [facility] Last Admin: 07/29/16 10:29 Dose: 10 mg Hydralazine HCl (Apresoline) 100 mg PO Q8 [facility] Last Admin: 07/30/16 05:44 Dose: 100 mg Insulin Detemir (Levemir) 10 unit SC HS [facility] Last Admin: 07/29/16 22:22 Dose: Not Given Insulin Human Lispro (Humalog Low) 0 units SC ACHS [facility] PRN Reason: Protocol Last Admin: 07/30/16 06:41 Dose: Not Given Labetalol HCl (Trandate) 800 mg PO Q12 [facility] Last Admin: 07/29/16 21:39 Dose: 800 mg Lisinopril (Zestril) 80 mg PO DAILY [facility] Last Admin: 07/29/16 12:36 Dose: Not Given Metoclopramide HCl (Reglan) 10 mg PO Q8 PRN PRN Reason: Nausea/Vomiting Last Admin: 07/29/16 16:38 Dose: 10 mg Ondansetron HCl (Zofran Inj) 4 mg IVP Q6H PRN PRN Reason: Nausea/Vomiting Pantoprazole Sodium (Protonix Ec Tab) 40 mg PO 0630 [facility] Last Admin: 07/30/16 05:45 Dose: 40 mg Primidone (Mysoline) 50 mg PO DAILY [facility] Last Admin: 07/29/16 10:30 Dose: 50 mg Sertraline HCl (Zoloft) 25 mg PO DAILY [facility] Last Admin: 07/29/16 10:36 Dose: 25 mg Sevelamer HCl (Renagel) 800 mg PO 0800,1200,1700 [facility] Last Admin: 07/29/16 17:30 Dose: 800 mg Vitamin B Complex/Vit C/Folic Acid (Nephro-Felix) 1 tab PO DAILY [facility] Last Admin: 07/29/16 10:30 Dose: 1 tab Warfarin Sodium (Coumadin) 6 mg PO 1800 [facility] PRN Reason: Protocol Last Admin: 07/29/16 17:29 Dose: 6 mg - Labs Labs: 07/29/16 06:20 07/29/16 06:20 PT > 90.0 Seconds (9.9-11.8) H* 07/30/16 07:00 INR > 5.00 (0.93-1.08) H* 07/30/16 07:00 Attending/Attestation - Attestation I have personally seen and examined this patient.: Yes I have fully participated in the care of the patient.: Yes I have reviewed all pertinent clinical information, including history, physical exam and plan: Yes
--- NOTE | 2016-07-27 09:30 | CP.PCM.PN ---
<Nestor Castellanos - Last Filed: 07/27/16 10:14> Subjective - Date & Time of Evaluation Date of Evaluation: 07/27/16 Time of Evaluation: 09:27 - Subjective Subjective: Medicine progress note - Nestor Castellanos PGY1 Patient seen and examined at bedside this morning. Patient participating in PT as tolerated. Encouraged her to continue with PT. Tolerating diet well, no issues sleeping. Denies chest pain, palpitations, SOB. Objective - Vital Signs/Intake and Output Vital Signs (last 24 hours): Temp Pulse Resp BP Pulse Ox 98.3 F 54 L 18 151/57 H 97 07/26/16 16:03 07/27/16 08:11 07/26/16 16:03 07/27/16 08:11 07/26/16 16:03 - Medications Medications: Current Medications Amlodipine Besylate (Norvasc) 10 mg PO DAILY [facility] PRN Reason: Protocol Last Admin: 07/26/16 17:59 Dose: 10 mg Aspirin (Ecotrin) 81 mg PO 0800 [facility] Last Admin: 07/27/16 08:12 Dose: 81 mg Atorvastatin Calcium (Lipitor) 40 mg PO HS [facility] Last Admin: 07/26/16 21:49 Dose: 40 mg Carbidopa/Levodopa (Sinemet 10/100) 1 tab PO TID [facility] Last Admin: 07/26/16 17:58 Dose: 1 tab Carvedilol (Coreg) 6.25 mg PO 0800,1700 [facility] Last Admin: 07/27/16 08:11 Dose: Not Given Clonidine HCl (Catapres) 0.3 mg PO Q12 PRN; Protocol PRN Reason: HTN Clopidogrel Bisulfate (Plavix) 75 mg PO 0800 [facility] Last Admin: 07/27/16 08:16 Dose: 75 mg Collagenase (Santyl) 0 gm TOP DAILY [facility] Last Admin: 07/26/16 12:28 Dose: Not Given Escitalopram Oxalate (Lexapro) 10 mg PO DAILY [facility] Last Admin: 07/26/16 11:00 Dose: 10 mg Hydralazine HCl (Apresoline) 100 mg PO Q8 [facility] Last Admin: 07/27/16 06:08 Dose: 100 mg Insulin Detemir (Levemir) 16 unit SC HS [facility] Last Admin: 07/26/16 21:51 Dose: 16 unit Insulin Human Lispro (Humalog) 6 units SC AC [facility] Last Admin: 07/27/16 06:41 Dose: Not Given Insulin Human Lispro (Humalog Low) 0 units SC ACHS [facility] PRN Reason: Protocol Last Admin: 07/27/16 06:42 Dose: Not Given Labetalol HCl (Trandate) 800 mg PO Q12 [facility] Last Admin: 07/26/16 21:51 Dose: 800 mg Lisinopril (Zestril) 80 mg PO DAILY [facility] Last Admin: 07/26/16 11:00 Dose: 80 mg Pantoprazole Sodium (Protonix Ec Tab) 40 mg PO 0630 [facility] Last Admin: 07/27/16 06:07 Dose: 40 mg Primidone (Mysoline) 50 mg PO DAILY [facility] Last Admin: 07/26/16 11:00 Dose: 50 mg Sertraline HCl (Zoloft) 25 mg PO DAILY [facility] Last Admin: 07/26/16 11:00 Dose: 25 mg Sevelamer HCl (Renagel) 800 mg PO 0800,1200,1700 [facility] Last Admin: 07/27/16 08:16 Dose: 800 mg Vitamin B Complex/Vit C/Folic Acid (Nephro-Jerry) 1 tab PO DAILY [facility] Last Admin: 07/26/16 11:00 Dose: 1 tab Warfarin Sodium (Coumadin) 6 mg PO 1800 [facility] PRN Reason: Protocol Last Admin: 07/26/16 17:53 Dose: 6 mg - Labs Labs: 07/27/16 07:00 07/27/16 07:00 - Constitutional Appears: Non-toxic, No Acute Distress - Head Exam Head Exam: ATRAUMATIC, NORMAL INSPECTION, NORMOCEPHALIC - Eye Exam Eye Exam: EOMI, PERRL - ENT Exam ENT Exam: Mucous Membranes Moist - Neck Exam Neck Exam: Normal Inspection - Respiratory Exam Respiratory Exam: Clear to Ausculation Bilateral. absent: Rales, Rhonchi, Wheezes - Cardiovascular Exam Cardiovascular Exam: RRR, +S1, +S2, Murmur. absent: Gallop, Rubs - GI/Abdominal Exam GI & Abdominal Exam: Soft, Normal Bowel Sounds. absent: Distended, Firm, Guarding, Rigid, Tenderness, Rebound - Neurological Exam Neurological Exam: Alert, Awake, Oriented x3 - Psychiatric Exam Psychiatric exam: Normal Affect, Normal Mood - Skin Skin Exam: Dry, Intact, Normal Color, Warm Assessment and Plan - Assessment and Plan (Free Text) Plan: 1. Lethargy * CT head negative, no acute intracranial abnormalities * MRI head negative for acute intracranial pathology * Afebrile, no leukocytosis; no apparent sources of infection * Currently undergoing physical therapy in the TCU due to deconditioning; tolerating diet well; Patient was encouraged her to continue with physical therapy as tolerated as that will be the mainstay of her treatment due to deconditioning. 2. End stage renal disease * Patient on hemodialysis (Tue, Thlacy, Sat); tolerating well * Continue with renagel and nephro-jerry * Nephrology consulted - Dr. Eller 3. Hypertension * Continue hydralazine, lisinopril, clonidine, norvasc 4. Diabetes Type 2 * Continue basal/bolus insulin regimen as per endocrinology recommendations * Continue humalog low dose ISS * Endocrinology consulted - Dr. Akers 5. CAD * Continue ASA 81, lipitor, coreg 6. Parkinsons * Continue home medication Sinemet 7. History of DVT * Continue warfarin 6mg PO qd 8. GI/DVT prophylaxis * protonix/warfarin Patient seen, reviewed, and case discussed with attending, Dr. Morton <Alexey Morton - Last Filed: 08/02/16 08:52> Objective - Vital Signs/Intake and Output Vital Signs (last 24 hours): Temp Pulse Resp BP Pulse Ox 98.3 F 63 16 119/78 97 08/01/16 10:00 08/01/16 18:51 08/01/16 10:00 08/01/16 18:51 08/01/16 10:00 - Labs Labs: 08/01/16 06:00 08/01/16 06:00 PT 34.3 Seconds (9.9-11.8) H* 08/01/16 06:00 INR 3.18 (0.93-1.08) H 08/01/16 06:00 APTT 45.1 Seconds (23.7-30.8) H 08/01/16 06:00 Attending/Attestation - Attestation I have personally seen and examined this patient.: Yes I have fully participated in the care of the patient.: Yes I have reviewed all pertinent clinical information, including history, physical exam and plan: Yes Notes (Text): 08/02/16 08:52 Medical record note made by the resident after discussion with my direction and input after the patient was personally seen and examined by me. I have reviewed the chart and agree that the record accurately reflects by personal performance of the history, physical exam, data review, and medical decision-making, in the course for the patient. I have also personally directed the plan of care.
[2016-07-27] MEDS: Multivitamin Vitamin B Complex (Nephro-Vite) Tab PO SCH (10:11)
[2016-07-27] MEDS: Collagenase 250 Units/gm Ointment(30 gm) TOP SCH (10:44)
--- NOTE | 2016-07-27 12:14 | PN ---
DATE: 07/27/2016 LOCATION: [address] [facility] This is a 66-year-old female with recent uncontrolled type 2 insulin-requiring diabetes, now being fo llowed closely for metabolic management. Her glycemic levels are fluctuating, but much improved at t his time and the latest chemistries showed a BUN of 31, sodium 134, potassium 4.1, chloride 93, CO2 2 7, glucose 86 and creatinine 5.0. The glucose values have ranged from 139 to 196 mg/dL. So at this time, we lower the basal insulin to 14 units subQ at bedtime daily to start tonight. We will also co ntinue the Humalog given as 6 units subQ t.i.d. before meals as ordered. We will continue the low-do se correction scale using Humalog insulin as ordered. We will titrate incrementally as indicated to optimize metabolic control. We will follow. Ladonna Akers MD cc: [id number] TT: 07/27/2016 12:13:58 Confirmation # [id number] Dictation # [id number] jn
[2016-07-27] MEDS ORDERED: Insulin Detemir 100 units/ml Vial (Levemir) SC SCH (22:00)
[2016-07-28] MEDS: Pantoprazole 40 mg EC Tab PO SCH (05:49)
[2016-07-28] MEDS: Insulin Lispro (humaLOG) LOW Coverage SC SCH ×4 (06:35→22:28)
[2016-07-28] MEDS: Insulin Lispro 1 UNITS/0.01 ML SC SCH ×3 (06:35→16:54)
[2016-07-28] MEDS: Multivitamin Vitamin B Complex (Nephro-Vite) Tab PO SCH (09:39)
[2016-07-28] MEDS: Collagenase 250 Units/gm Ointment(30 gm) TOP SCH (09:40)
--- NOTE | 2016-07-28 11:21 | PN ---
DATE: 07/28/2016 ROOM: 320 This is a 66-year-old female with recent uncontrolled type 2 insulin-requiring diabetes, now being fo llowed closely for metabolic management. Her glycemic levels are fluctuating, but much improved at this time and the latest chemistries showed BUN of 31, sodium 134, potassium 4.1, chloride 93, CO2 27, glucose 86 and creatinine 5.0. Her overn ight glucose levels ranged from 70-135 and 196 mg/dL. So at this time, with the advanced azotemia and progressive renal insufficiency, would expect much le ss insulin requirements as noted thereof and so we will lower the Humalog to 4 units subQ t.i.d. befo re meals to start at lunchtime today as ordered. We will continue also the low-dose correction scale using Humalog insulin as ordered to obviate hypoglycemia and detailed orders have been given. We wi ll also lower the basal insulin with Levemir to be given as 10 units subQ at bedtime daily to start t onight. If hypoglycemic levels persist, then we will discontinue the basal and bolus insulin regimen as indicated. We will switch her over to low-dose oral hypoglycemic drug therapy in the light of un derlying chronic kidney disease with progressive renal insufficiency. We will follow. Ladonna Akers MD cc: [phone] TT: 07/28/2016 11:21:13 Confirmation # [id number] Dictation # [id number]
[2016-07-28] MEDS: Insulin Detemir 100 units/ml Vial (Levemir) SC SCH (22:29)
[2016-07-29] MEDS: Pantoprazole 40 mg EC Tab PO SCH (06:07)
[2016-07-29] MEDS: Insulin Lispro 1 UNITS/0.01 ML SC SCH ×2 (06:38→12:28)
[2016-07-29] MEDS: Insulin Lispro (humaLOG) LOW Coverage SC SCH ×4 (06:38→22:21)
[2016-07-29 06:46] LABS: ADD MANUAL DIFF? NO
[2016-07-29 07:15] LABS: BASO # 0.05 K/mm3 (0.0-2.0); BASO % 0.9 % (0.0-3.0); EOS # 0.2 (0.0-0.7); EOS % 3.1 % (1.5-5.0); GRAN # 3.73 (1.4-6.5); GRAN % 69.2 % (50.0-68.0); HEMATOCRIT 31.6 % (36.0-48.0); LYMPH % 18.3 % (22.0-35.0); MEAN CELL VOLUME 86.1 fL (80.0-105.0); MEAN CORPUSCULAR HEMOGLOBIN 27.5 pg (25.0-35.0); MEAN PLATELET VOLUME 10.7 fl (7.0-11.0); MONO # 0.5 (0.1-0.6); MONO % 8.5 % (1.0-6.0); PLATELET COUNT 211 10^3/uL (120.0-450.0); RED CELL DISTRIBUTION WIDTH 18.2 % (11.5-14.5); WHITE BLOOD COUNT 5.4 10^3/ul (4.5-11.0)
[2016-07-29 07:21] LABS: BILIRUBIN,TOTAL 0.4 mg/dL (0.2-1.3); CALCIUM 9.6 mg/dL (8.4-10.5); POTASSIUM 4.2 mmol/L (3.6-5.0); TOTAL PROTEIN 7.2 g/dL (5.8-8.3)
--- NOTE | 2016-07-29 09:19 | PN ---
DATE: 07/29/2016 DATE: 07/29/2016 SUBJECTIVE: The patient has no complaints of any headaches or dizziness. She says she feels well. PHYSICAL EXAMINATION: VITAL SIGNS: Temperature is 98.2, pulse of 61. Blood pressure is 144/61, respirations 18. GENERAL: The patient is comfortable, in no acute distress. HEENT: Anicteric sclerae. Moist mucosa. NECK: No JVD or adenopathy. CARDIAC: S1/S2. No murmurs. No rubs. Regular. RESPIRATORY: Clear to auscultation bilaterally. No wheezes, rales, or rhonchi. Good air entry. ABDOMEN: Bowel sounds are positive, soft, nontender, and nondistended. EXTREMITIES: No edema. Has 1+ pulses. LABORATORY DATA: White count of 5.4, hemoglobin 10.1. Creatinine is 4.6. ASSESSMENT: 1. End-stage renal disease, on hemodialysis. 2. Antiphospholipid antibodies on Coumadin. 3. Coronary artery disease. 4. Peripheral arterial disease. 5. Hypertension. 6. Left arteriovenous fistula. 7. Diabetes type 2. 8. Chronic anemia secondary to chronic kidney disease. 9. Gastroesophageal reflux disease. PLAN: The patient is currently comfortable. She is being followed by Dr. Akers from endocrine. She i s getting dialysis 3 times a week. The patient is on clonidine for her hypertension. She is on Coum aileen. She will need an INR to be checked. I will order a PT/INR for tomorrow. The patient is on Le xapro for anxiety. She is on labetalol for hypertension. She is on lisinopril for hypertension. Sh e is on a renal diet. She is on the transitional care unit for rehab. Bebo Eller MD cc: [id number] TT: 07/29/2016 09:19:34 Confirmation # [id number] Dictation # [id number]
[2016-07-29] MEDS: Multivitamin Vitamin B Complex (Nephro-Vite) Tab PO SCH (10:30)
[2016-07-29] MEDS: Collagenase 250 Units/gm Ointment(30 gm) TOP SCH (10:34)
--- NOTE | 2016-07-29 10:52 | CP.PCM.PN ---
<Nestor Castellanos - Last Filed: 07/29/16 13:16> Subjective - Date & Time of Evaluation Date of Evaluation: 07/29/16 Time of Evaluation: 10:50 - Subjective Subjective: Medicine progress note - Nestor Castellanos PGY1 Patient seen and examined at bedside this morning. No acute overnight events or new complaints. Patient encouraged to continue with PT as tolerated. Reports eating and sleeping well. Denies chest pain, palpitations, SOB. Objective - Vital Signs/Intake and Output Vital Signs (last 24 hours): Temp Pulse Resp BP Pulse Ox 98.2 F 61 18 144/61 97 07/29/16 06:00 07/29/16 08:08 07/29/16 06:00 07/29/16 08:08 07/29/16 06:00 Intake and Output: 07/29/16 07/29/16 06:59 18:59 Intake Total 420 420 Balance 420 420 - Medications Medications: Current Medications Amlodipine Besylate (Norvasc) 10 mg PO DAILY [facility] PRN Reason: Protocol Last Admin: 07/28/16 09:40 Dose: 10 mg Aspirin (Ecotrin) 81 mg PO 0800 [facility] Last Admin: 07/29/16 08:08 Dose: 81 mg Atorvastatin Calcium (Lipitor) 40 mg PO HS [facility] Last Admin: 07/28/16 21:26 Dose: 40 mg Carbidopa/Levodopa (Sinemet 10/100) 1 tab PO TID [facility] Last Admin: 07/28/16 17:46 Dose: 1 tab Carvedilol (Coreg) 6.25 mg PO 0800,1700 [facility] Last Admin: 07/29/16 08:08 Dose: 6.25 mg Clonidine HCl (Catapres) 0.3 mg PO Q12 PRN; Protocol PRN Reason: HTN Clopidogrel Bisulfate (Plavix) 75 mg PO 0800 [facility] Last Admin: 07/29/16 08:10 Dose: 75 mg Collagenase (Santyl) 0 gm TOP DAILY [facility] Last Admin: 07/28/16 09:40 Dose: 1 applic Escitalopram Oxalate (Lexapro) 10 mg PO DAILY [facility] Last Admin: 07/28/16 09:39 Dose: 10 mg Hydralazine HCl (Apresoline) 100 mg PO Q8 [facility] Last Admin: 07/29/16 06:07 Dose: 100 mg Insulin Detemir (Levemir) 10 unit SC [facility] Last Admin: 07/28/16 22:29 Dose: 10 unit Insulin Human Lispro (Humalog Low) 0 units SC ACHS [facility] PRN Reason: Protocol Last Admin: 07/29/16 06:38 Dose: Not Given Insulin Human Lispro (Humalog) 4 units SC AC [facility] Last Admin: 07/29/16 06:38 Dose: 4 units Labetalol HCl (Trandate) 800 mg PO Q12 [facility] Last Admin: 07/28/16 21:25 Dose: 800 mg Lisinopril (Zestril) 80 mg PO DAILY [facility] Last Admin: 07/28/16 09:41 Dose: 80 mg Pantoprazole Sodium (Protonix Ec Tab) 40 mg PO 0630 [facility] Last Admin: 07/29/16 06:07 Dose: 40 mg Primidone (Mysoline) 50 mg PO DAILY [facility] Last Admin: 07/28/16 09:39 Dose: 50 mg Sertraline HCl (Zoloft) 25 mg PO DAILY [facility] Last Admin: 07/28/16 09:41 Dose: 25 mg Sevelamer HCl (Renagel) 800 mg PO 0800,1200,1700 [facility] Last Admin: 07/29/16 08:10 Dose: 800 mg Vitamin B Complex/Vit C/Folic Acid (Nephro-Jerry) 1 tab PO DAILY [facility] Last Admin: 07/28/16 09:39 Dose: 1 tab Warfarin Sodium (Coumadin) 6 mg PO 1800 [facility] PRN Reason: Protocol Last Admin: 07/28/16 17:46 Dose: 6 mg - Labs Labs: 07/29/16 06:20 07/29/16 06:20 - Constitutional Appears: Non-toxic, No Acute Distress - Head Exam Head Exam: ATRAUMATIC, NORMAL INSPECTION, NORMOCEPHALIC - Eye Exam Eye Exam: EOMI, PERRL - ENT Exam ENT Exam: Mucous Membranes Moist - Neck Exam Neck Exam: Normal Inspection - Respiratory Exam Respiratory Exam: Clear to Ausculation Bilateral. absent: Rales, Rhonchi, Wheezes - Cardiovascular Exam Cardiovascular Exam: RRR, +S1, +S2. absent: Diastolic murmur, Gallop, JVD, Rubs , Murmur - GI/Abdominal Exam GI & Abdominal Exam: Soft. absent: Distended, Firm, Guarding, Rigid, Tenderness , Rebound - Extremities Exam Additional comments: right BKA - Neurological Exam Neurological Exam: Alert, Awake, Oriented x3 - Psychiatric Exam Psychiatric exam: Normal Affect, Normal Mood - Skin Skin Exam: Dry, Intact, Normal Color, Warm Assessment and Plan - Assessment and Plan (Free Text) Plan: 1. Lethargy * CT head negative, no acute intracranial abnormalities * MRI head negative for acute intracranial pathology * Afebrile, no leukocytosis; no apparent sources of infection * Currently undergoing physical therapy in the TCU due to deconditioning; tolerating diet well; Patient was encouraged her to continue with physical therapy as tolerated as that will be the mainstay of her treatment due to deconditioning. 2. End stage renal disease * Patient on hemodialysis (e, , Fri); tolerating well * Continue with renagel and nephro-jerry * Nephrology consulted - Dr. Eller 3. Hypertension * Continue hydralazine, lisinopril, clonidine, norvasc 4. Diabetes Type 2 * Continue basal/bolus insulin regimen as per endocrinology recommendations * Continue humalog low dose ISS * Endocrinology consulted - Dr. Akers 5. CAD * Continue ASA 81, lipitor, coreg 6. Parkinsons * Continue home medication Sinemet 7. History of DVT * Continue warfarin 6mg PO qd 8. GI/DVT prophylaxis * protonix/warfarin Patient seen, reviewed, and case discussed with attending, Dr. Morton <Alexey Morton - Last Filed: 08/02/16 08:56> Objective - Vital Signs/Intake and Output Vital Signs (last 24 hours): Temp Pulse Resp BP Pulse Ox 98.3 F 63 16 119/78 97 08/01/16 10:00 08/01/16 18:51 08/01/16 10:00 08/01/16 18:51 08/01/16 10:00 - Labs Labs: 08/01/16 06:00 08/01/16 06:00 PT 34.3 Seconds (9.9-11.8) H* 08/01/16 06:00 INR 3.18 (0.93-1.08) H 08/01/16 06:00 APTT 45.1 Seconds (23.7-30.8) H 08/01/16 06:00 Attending/Attestation - Attestation I have personally seen and examined this patient.: Yes I have fully participated in the care of the patient.: Yes I have reviewed all pertinent clinical information, including history, physical exam and plan: Yes Notes (Text): 08/02/16 08:56 Medical record note made by the resident after discussion with my direction and input after the patient was personally seen and examined by me. I have reviewed the chart and agree that the record accurately reflects by personal performance of the history, physical exam, data review, and medical decision-making, in the course for the patient. I have also personally directed the plan of care.
[2016-07-29] MEDS ORDERED: Metoclopramide 5 mg/5 ml Oral Sol PO PRN (15:30)
--- NOTE | 2016-07-29 16:01 | CP.PCM.PN ---
<Sharmila Em - Last Filed: 07/29/16 15:58> Subjective - Date & Time of Evaluation Date of Evaluation: 07/29/16 Time of Evaluation: 15:58 - Subjective Subjective: 66 y/o female seen at bedside w/ Dr. Issa regarding left heel ulceration. Patient seen resting comfortably in bed at time of visit. Denies any acute events overnight. Denies pain or discomfort to the foot at this time. Denies f/n /v/c/sob/cp. Denies any other pedal complaints. Objective - Vital Signs/Intake and Output Vital Signs (last 24 hours): Temp Pulse Resp BP Pulse Ox 97.8 F 52 L 16 152/59 H 98 07/29/16 10:00 07/29/16 13:16 07/29/16 10:00 07/29/16 13:16 07/29/16 10:00 Intake and Output: 07/29/16 07/29/16 06:59 18:59 Intake Total 420 420 Balance 420 420 - Medications Medications: Current Medications Acetaminophen (Tylenol 325mg Tab) 650 mg PO Q6H PRN PRN Reason: Pain, moderate (4-7) Amlodipine Besylate (Norvasc) 10 mg PO DAILY [facility] PRN Reason: Protocol Last Admin: 07/29/16 10:32 Dose: Not Given Aspirin (Ecotrin) 81 mg PO 0800 [facility] Last Admin: 07/29/16 08:08 Dose: 81 mg Atorvastatin Calcium (Lipitor) 40 mg PO HS [facility] Last Admin: 07/28/16 21:26 Dose: 40 mg Carbidopa/Levodopa (Sinemet 10/100) 1 tab PO TID [facility] Last Admin: 07/29/16 13:18 Dose: 1 tab Carvedilol (Coreg) 6.25 mg PO 0800,1700 [facility] Last Admin: 07/29/16 08:08 Dose: 6.25 mg Clonidine HCl (Catapres) 0.3 mg PO Q12 PRN; Protocol PRN Reason: HTN Clopidogrel Bisulfate (Plavix) 75 mg PO 0800 [facility] Last Admin: 07/29/16 08:10 Dose: 75 mg Collagenase (Santyl) 0 gm TOP DAILY [facility] Last Admin: 07/29/16 10:34 Dose: 1 applic Escitalopram Oxalate (Lexapro) 10 mg PO DAILY [facility] Last Admin: 07/29/16 10:29 Dose: 10 mg Hydralazine HCl (Apresoline) 100 mg PO Q8 [facility] Last Admin: 07/29/16 13:16 Dose: Not Given Insulin Detemir (Levemir) 10 unit SC HS [facility] Last Admin: 07/28/16 22:29 Dose: 10 unit Insulin Human Lispro (Humalog Low) 0 units SC ACHS [facility] PRN Reason: Protocol Last Admin: 07/29/16 12:29 Dose: Not Given Labetalol HCl (Trandate) 800 mg PO Q12 [facility] Last Admin: 07/29/16 10:35 Dose: Not Given Lisinopril (Zestril) 80 mg PO DAILY [facility] Last Admin: 07/29/16 12:36 Dose: Not Given Metoclopramide HCl (Reglan) 10 mg PO Q8 PRN PRN Reason: Nausea/Vomiting Ondansetron HCl (Zofran Inj) 4 mg IVP Q6H PRN PRN Reason: Nausea/Vomiting Pantoprazole Sodium (Protonix Ec Tab) 40 mg PO 0630 [facility] Last Admin: 07/29/16 06:07 Dose: 40 mg Primidone (Mysoline) 50 mg PO DAILY [facility] Last Admin: 07/29/16 10:30 Dose: 50 mg Sertraline HCl (Zoloft) 25 mg PO DAILY [facility] Last Admin: 07/29/16 10:36 Dose: 25 mg Sevelamer HCl (Renagel) 800 mg PO 0800,1200,1700 [facility] Last Admin: 07/29/16 12:34 Dose: 800 mg Vitamin B Complex/Vit C/Folic Acid (Nephro-Felix) 1 tab PO DAILY [facility] Last Admin: 07/29/16 10:30 Dose: 1 tab Warfarin Sodium (Coumadin) 6 mg PO 1800 [facility] PRN Reason: Protocol Last Admin: 07/28/16 17:46 Dose: 6 mg - Labs Labs: 07/29/16 06:20 07/29/16 06:20 - Constitutional Appears: Well, Non-toxic, No Acute Distress - Extremities Exam Additional comments: Lower extremity focused exam: Right: BKA Left: vasc: Non-palpable pedal pulses, CFT < 4 sec to all digits, TG wnl, no edema neuro: Gross sensation diminished derm: full thickness open ulceration at the posterior aspect of heel measuring approximately 0.5cm x 0.5cm x 0.2cm - base is mostly granular with mixed fibrotic tissue, minimal serous drainage, no purulence, no malodor, no ascending cellulitis, no fluctuance, no probe to bone ortho: mild pain on palpation to heel - Neurological Exam Neurological Exam: Alert, Awake, Oriented x3 - Psychiatric Exam Psychiatric exam: Normal Affect, Normal Mood Assessment and Plan - Assessment and Plan (Free Text) Assessment: 66 y/o female seen for diabetic left heel ulceration, tejada grade 2 Plan: Patient examined and evaluated at bedside with Dr. Issa Chart, labs and vitals reviewed: afebrile, no leukocytosis Left heel cleansed w/ sterile saline, applied santyl and optifoam to the left heel Advise patient to continue wearing the multipodus boots at all times in bed podiatry will continue to monitor while patient remains in house <Elmira Issa - Last Filed: 08/04/16 14:18> Objective - Vital Signs/Intake and Output Vital Signs (last 24 hours): Temp Pulse Resp BP Pulse Ox 98.3 F 63 16 119/78 97 08/01/16 10:00 08/01/16 18:51 08/01/16 10:00 08/01/16 18:51 08/01/16 10:00 - Labs Labs: 08/01/16 06:00 08/01/16 06:00 PT 34.3 Seconds (9.9-11.8) H* 08/01/16 06:00 INR 3.18 (0.93-1.08) H 08/01/16 06:00 APTT 45.1 Seconds (23.7-30.8) H 08/01/16 06:00 Attending/Attestation - Attestation I have personally seen and examined this patient.: Yes I have fully participated in the care of the patient.: Yes I have reviewed all pertinent clinical information, including history, physical exam and plan: Yes
--- NOTE | 2016-07-29 16:30 | PN ---
DATE: 07/29/2016 ROOM: [facility]. This is a 66-year-old female with recent uncontrolled type 2 insulin-requiring diabetes, now being fo llowed closely for metabolic management. Her glycemic levels are much improved at this time and have ranged from 98-129 mg/dL today. It was 186-249 last night as noted. Her latest chemistries include a BUN of 26, sodium 134, potassium 4.2, chloride 96, CO2 of 26, glucose 98, and creatinine 4.6. So, at this time, we will modify her current insulin regimen and actually discontinue the Humalog ins ulin as given and keep her only on the Levemir at a low dose of 10 units subQ at bedtime daily as giv en. We will consider the addition of oral hypoglycemic therapy if hyperglycemic levels supervene dur ing mealtime as noted. We will follow and advise accordingly. Ladonna Aekrs MD cc: [id number] TT: 07/29/2016 16:29:21 Confirmation # [id number] Dictation # [id number]
[2016-07-29] MEDS: Insulin Detemir 100 units/ml Vial (Levemir) SC SCH (22:22)
[2016-07-30] MEDS: Pantoprazole 40 mg EC Tab PO SCH (05:45)
[2016-07-30] MEDS: Insulin Lispro (humaLOG) LOW Coverage SC SCH ×4 (06:41→21:32)
[2016-07-30 08:12] LABS: INR > 5.00 (0.93-1.08)
--- NOTE | 2016-07-30 09:17 | CP.PCM.PN ---
<Nestor Castellanos - Last Filed: 07/30/16 11:18> Subjective - Date & Time of Evaluation Date of Evaluation: 07/30/16 Time of Evaluation: 09:14 - Subjective Subjective: Medicine progress note - Nestor Emanuel PGY1 Patient seen and examined at bedside this morning. No acute overnight events or new complaints. Patient continues to work with physical therapy for rehabilitation. Denies chest pain, palpitations, SOB. Objective - Vital Signs/Intake and Output Vital Signs (last 24 hours): Temp Pulse Resp BP Pulse Ox 98.3 F 63 18 167/65 H 96 07/30/16 06:00 07/30/16 08:13 07/30/16 06:00 07/30/16 08:13 07/30/16 06:00 - Medications Medications: Current Medications Acetaminophen (Tylenol 325mg Tab) 650 mg PO Q6H PRN PRN Reason: Pain, moderate (4-7) Amlodipine Besylate (Norvasc) 10 mg PO DAILY [facility] PRN Reason: Protocol Last Admin: 07/29/16 10:32 Dose: Not Given Aspirin (Ecotrin) 81 mg PO 0800 [facility] Last Admin: 07/30/16 08:13 Dose: 81 mg Atorvastatin Calcium (Lipitor) 40 mg PO HS [facility] Last Admin: 07/29/16 21:38 Dose: 40 mg Carbidopa/Levodopa (Sinemet 10/100) 1 tab PO TID [facility] Last Admin: 07/29/16 17:31 Dose: 1 tab Carvedilol (Coreg) 6.25 mg PO 0800,1700 [facility] Last Admin: 07/30/16 08:13 Dose: 6.25 mg Clonidine HCl (Catapres) 0.3 mg PO Q12 PRN; Protocol PRN Reason: HTN Clopidogrel Bisulfate (Plavix) 75 mg PO 0800 [facility] Last Admin: 07/30/16 08:13 Dose: 75 mg Collagenase (Santyl) 0 gm TOP DAILY [facility] Last Admin: 07/29/16 10:34 Dose: 1 applic Escitalopram Oxalate (Lexapro) 10 mg PO DAILY [facility] Last Admin: 07/29/16 10:29 Dose: 10 mg Hydralazine HCl (Apresoline) 100 mg PO Q8 [facility] Last Admin: 07/30/16 05:44 Dose: 100 mg Insulin Detemir (Levemir) 10 unit SC [facility] Last Admin: 07/29/16 22:22 Dose: Not Given Insulin Human Lispro (Humalog Low) 0 units SC [facility] PRN Reason: Protocol Last Admin: 07/30/16 06:41 Dose: Not Given Labetalol HCl (Trandate) 800 mg PO Q12 [facility] Last Admin: 07/29/16 21:39 Dose: 800 mg Lisinopril (Zestril) 80 mg PO DAILY [facility] Last Admin: 07/29/16 12:36 Dose: Not Given Metoclopramide HCl (Reglan) 10 mg PO Q8 PRN PRN Reason: Nausea/Vomiting Last Admin: 07/29/16 16:38 Dose: 10 mg Ondansetron HCl (Zofran Inj) 4 mg IVP Q6H PRN PRN Reason: Nausea/Vomiting Pantoprazole Sodium (Protonix Ec Tab) 40 mg PO 0630 [facility] Last Admin: 07/30/16 05:45 Dose: 40 mg Primidone (Mysoline) 50 mg PO DAILY [facility] Last Admin: 07/29/16 10:30 Dose: 50 mg Sertraline HCl (Zoloft) 25 mg PO DAILY [facility] Last Admin: 07/29/16 10:36 Dose: 25 mg Sevelamer HCl (Renagel) 800 mg PO 0800,1200,1700 [facility] Last Admin: 07/30/16 08:13 Dose: 800 mg Vitamin B Complex/Vit C/Folic Acid (Nephro-Jerry) 1 tab PO DAILY [facility] Last Admin: 07/29/16 10:30 Dose: 1 tab Warfarin Sodium (Coumadin) 6 mg PO 1800 [facility] PRN Reason: Protocol Last Admin: 07/29/16 17:29 Dose: 6 mg - Labs Labs: 07/29/16 06:20 07/29/16 06:20 PT > 90.0 Seconds (9.9-11.8) H* 07/30/16 07:00 INR > 5.00 (0.93-1.08) H* 07/30/16 07:00 - Constitutional Appears: Non-toxic, No Acute Distress - Head Exam Head Exam: ATRAUMATIC, NORMAL INSPECTION, NORMOCEPHALIC - Eye Exam Eye Exam: EOMI, PERRL - ENT Exam ENT Exam: Mucous Membranes Moist - Neck Exam Neck Exam: Normal Inspection - Respiratory Exam Respiratory Exam: Clear to Ausculation Bilateral. absent: Rales, Rhonchi, Wheezes - Cardiovascular Exam Cardiovascular Exam: RRR, +S1, +S2, Murmur. absent: Gallop, Rubs - GI/Abdominal Exam GI & Abdominal Exam: Soft, Normal Bowel Sounds. absent: Distended, Firm, Guarding, Rigid, Tenderness, Rebound - Extremities Exam Additional comments: right bka - Neurological Exam Neurological Exam: Alert, Awake, Oriented x3 - Psychiatric Exam Psychiatric exam: Normal Affect, Normal Mood - Skin Skin Exam: Dry, Intact, Normal Color, Warm Assessment and Plan - Assessment and Plan (Free Text) Plan: 1. Lethargy * CT head negative, no acute intracranial abnormalities * MRI head negative for acute intracranial pathology * Afebrile, no leukocytosis; no apparent sources of infection * Currently undergoing physical therapy in the TCU due to deconditioning; tolerating diet well; Patient was encouraged her to continue with physical therapy as tolerated as that will be the mainstay of her treatment due to deconditioning. 2. End stage renal disease * Patient on hemodialysis (Fri, , Fri); tolerating well * Continue with renagel and nephro-jerry * Nephrology consulted - Dr. Eller 3. Hypertension * Continue hydralazine, lisinopril, clonidine, norvasc 4. Diabetes Type 2 * Continue basal/bolus insulin regimen as per endocrinology recommendations * Continue humalog low dose ISS * Endocrinology consulted - Dr. Akers 5. CAD * Continue ASA 81, lipitor, coreg 6. Parkinsons * Continue home medication Sinemet 7. History of DVT * Warfarin 6mg PO qd was held this morning given her supratherapeutic INR * Will continue to trend INR and resume when indicated 8. GI/DVT prophylaxis * protonix/warfarin Disposition: Patient to continue with PT for rehabiliation of deconditioning. Despite supratherapeutic INR, patient may participate in light PT exercises at bedside as tolerated. Patient seen, reviewed, and case discussed with attending, Dr. Aguirre <Wm Aguirre - Last Filed: 08/30/16 08:11> Objective - Vital Signs/Intake and Output Vital Signs (last 24 hours): Temp Pulse Resp BP Pulse Ox 98.3 F 63 16 119/78 97 08/01/16 10:00 08/01/16 18:51 08/01/16 10:00 08/01/16 18:51 08/01/16 10:00 - Labs Labs: 08/01/16 06:00 08/01/16 06:00 PT 34.3 Seconds (9.9-11.8) H* 08/01/16 06:00 INR 3.18 (0.93-1.08) H 08/01/16 06:00 APTT 45.1 Seconds (23.7-30.8) H 08/01/16 06:00 Attending/Attestation - Attestation I have personally seen and examined this patient.: Yes I have fully participated in the care of the patient.: Yes I have reviewed all pertinent clinical information, including history, physical exam and plan: Yes Notes (Text): 08/30/16 08:11 Medical record note made by the resident after discussion with my direction and input after the patient was personally seen and examined by me. I have reviewed the chart and agree that the record reflects my personal performance of history, physical, data review and course for the patient that I have planned.
[2016-07-30] MEDS: Multivitamin Vitamin B Complex (Nephro-Vite) Tab PO SCH (10:13)
[2016-07-30] MEDS: Collagenase 250 Units/gm Ointment(30 gm) TOP SCH (10:14)
[2016-07-30] MEDS ORDERED: Phytonadione 10 mg/ml Inj (Adult) SC ONE (10:45)
--- NOTE | 2016-07-30 11:28 | CP.PCM.PN ---
<Sharmila Em - Last Filed: 07/30/16 11:26> Subjective - Date & Time of Evaluation Date of Evaluation: 07/30/16 Time of Evaluation: 11:26 - Subjective Subjective: 66 y/o female seen at bedside regarding left heel ulceration. Patient seen resting comfortably in bed at time of visit. Denies any acute events overnight. Admits to pain on palpation of left heel. Denies f/n/v/c/sob/cp. Denies any other pedal complaints. Objective - Vital Signs/Intake and Output Vital Signs (last 24 hours): Temp Pulse Resp BP Pulse Ox 98.3 F 65 18 172/58 H 99 07/30/16 10:00 07/30/16 10:00 07/30/16 10:00 07/30/16 10:15 07/30/16 10:00 Intake and Output: 07/30/16 07/30/16 06:59 18:59 Intake Total 420 Balance 420 - Medications Medications: Current Medications Acetaminophen (Tylenol 325mg Tab) 650 mg PO Q6H PRN PRN Reason: Pain, moderate (4-7) Last Admin: 07/30/16 10:17 Dose: 650 mg Amlodipine Besylate (Norvasc) 10 mg PO DAILY [facility] PRN Reason: Protocol Last Admin: 07/30/16 10:14 Dose: 10 mg Aspirin (Ecotrin) 81 mg PO 0800 [facility] Last Admin: 07/30/16 08:13 Dose: 81 mg Atorvastatin Calcium (Lipitor) 40 mg PO HS [facility] Last Admin: 07/29/16 21:38 Dose: 40 mg Carbidopa/Levodopa (Sinemet 10/100) 1 tab PO TID [facility] Last Admin: 07/30/16 10:15 Dose: 1 tab Carvedilol (Coreg) 6.25 mg PO 0800,1700 [facility] Last Admin: 07/30/16 08:13 Dose: 6.25 mg Clonidine HCl (Catapres) 0.3 mg PO Q12 PRN; Protocol PRN Reason: HTN Clopidogrel Bisulfate (Plavix) 75 mg PO 0800 [facility] Last Admin: 07/30/16 08:13 Dose: 75 mg Collagenase (Santyl) 0 gm TOP DAILY [facility] Last Admin: 07/30/16 10:14 Dose: 1 applic Escitalopram Oxalate (Lexapro) 10 mg PO DAILY [facility] Last Admin: 07/30/16 10:13 Dose: 10 mg Hydralazine HCl (Apresoline) 100 mg PO Q8 [facility] Last Admin: 07/30/16 05:44 Dose: 100 mg Insulin Detemir (Levemir) 10 unit SC HS [facility] Last Admin: 07/29/16 22:22 Dose: Not Given Insulin Human Lispro (Humalog Low) 0 units SC [facility] PRN Reason: Protocol Last Admin: 07/30/16 06:41 Dose: Not Given Labetalol HCl (Trandate) 800 mg PO Q12 [facility] Last Admin: 07/30/16 10:15 Dose: Not Given Lisinopril (Zestril) 80 mg PO DAILY [facility] Last Admin: 07/30/16 10:17 Dose: 80 mg Metoclopramide HCl (Reglan) 10 mg PO Q8 PRN PRN Reason: Nausea/Vomiting Last Admin: 07/30/16 10:21 Dose: 10 mg Ondansetron HCl (Zofran Inj) 4 mg IVP Q6H PRN PRN Reason: Nausea/Vomiting Pantoprazole Sodium (Protonix Ec Tab) 40 mg PO 0630 [facility] Last Admin: 07/30/16 05:45 Dose: 40 mg Primidone (Mysoline) 50 mg PO DAILY [facility] Last Admin: 07/30/16 10:13 Dose: 50 mg Sertraline HCl (Zoloft) 25 mg PO DAILY [facility] Last Admin: 07/30/16 10:16 Dose: 25 mg Sevelamer HCl (Renagel) 800 mg PO 0800,1200,1700 [facility] Last Admin: 07/30/16 08:13 Dose: 800 mg Vitamin B Complex/Vit C/Folic Acid (Nephro-Felix) 1 tab PO DAILY [facility] Last Admin: 07/30/16 10:13 Dose: 1 tab Warfarin Sodium (Coumadin) 6 mg PO 1800 [facility] PRN Reason: Protocol Last Admin: 07/29/16 17:29 Dose: 6 mg - Labs Labs: 07/29/16 06:20 07/29/16 06:20 PT > 90.0 Seconds (9.9-11.8) H* 07/30/16 07:00 INR > 5.00 (0.93-1.08) H* 07/30/16 07:00 - Constitutional Appears: Well, Non-toxic, No Acute Distress - Extremities Exam Additional comments: Lower extremity focused exam: Right: BKA Left: vasc: Non-palpable pedal pulses, CFT < 4 sec to all digits, TG wnl, no edema neuro: Gross sensation diminished derm: full thickness open ulceration at the posterior aspect of heel measuring approximately 0.5cm x 0.5cm x 0.2cm - base is mostly granular with mixed fibrotic tissue, minimal serous drainage, no purulence, no malodor, no ascending cellulitis, no fluctuance, no probe to bone ortho: mild pain on palpation to heel - Neurological Exam Neurological Exam: Alert, Awake, Oriented x3 - Psychiatric Exam Psychiatric exam: Normal Affect, Normal Mood Assessment and Plan - Assessment and Plan (Free Text) Assessment: 66 y/o female seen for diabetic left heel ulceration, tejada grade 2 Plan: Patient examined and evaluated Discussed with attending Dr. Gay Chart, labs and vitals reviewed: afebrile, no leukocytosis Left heel cleansed w/ sterile saline, applied santyl and optifoam to the left heel Advise patient to continue wearing the multipodus boots at all times in bed podiatry will continue to monitor while patient remains in house <Dany Gay - Last Filed: 07/30/16 12:13> Objective - Vital Signs/Intake and Output Vital Signs (last 24 hours): Temp Pulse Resp BP Pulse Ox 98.3 F 65 18 172/58 H 99 07/30/16 10:00 07/30/16 10:00 07/30/16 10:00 07/30/16 10:15 07/30/16 10:00 Intake and Output: 07/30/16 07/30/16 06:59 18:59 Intake Total 420 Balance 420 - Medications Medications: Current Medications Acetaminophen (Tylenol 325mg Tab) 650 mg PO Q6H PRN PRN Reason: Pain, moderate (4-7) Last Admin: 07/30/16 10:17 Dose: 650 mg Amlodipine Besylate (Norvasc) 10 mg PO DAILY [facility] PRN Reason: Protocol Last Admin: 07/30/16 10:14 Dose: 10 mg Aspirin (Ecotrin) 81 mg PO 0800 [facility] Last Admin: 07/30/16 08:13 Dose: 81 mg Atorvastatin Calcium (Lipitor) 40 mg PO HS [facility] Last Admin: 07/29/16 21:38 Dose: 40 mg Carbidopa/Levodopa (Sinemet 10/100) 1 tab PO TID [facility] Last Admin: 07/30/16 10:15 Dose: 1 tab Carvedilol (Coreg) 6.25 mg PO 0800,1700 [facility] Last Admin: 07/30/16 08:13 Dose: 6.25 mg Clonidine HCl (Catapres) 0.3 mg PO Q12 PRN; Protocol PRN Reason: HTN Clopidogrel Bisulfate (Plavix) 75 mg PO 0800 [facility] Last Admin: 07/30/16 08:13 Dose: 75 mg Collagenase (Santyl) 0 gm TOP DAILY [facility] Last Admin: 07/30/16 10:14 Dose: 1 applic Escitalopram Oxalate (Lexapro) 10 mg PO DAILY [facility] Last Admin: 07/30/16 10:13 Dose: 10 mg Hydralazine HCl (Apresoline) 100 mg PO Q8 [facility] Last Admin: 07/30/16 05:44 Dose: 100 mg Insulin Detemir (Levemir) 10 unit SC HS [facility] Last Admin: 07/29/16 22:22 Dose: Not Given Insulin Human Lispro (Humalog Low) 0 units SC [facility] PRN Reason: Protocol Last Admin: 07/30/16 12:03 Dose: Not Given Labetalol HCl (Trandate) 800 mg PO Q12 [facility] Last Admin: 07/30/16 10:15 Dose: Not Given Lisinopril (Zestril) 80 mg PO DAILY [facility] Last Admin: 07/30/16 10:17 Dose: 80 mg Metoclopramide HCl (Reglan) 10 mg PO Q8 PRN PRN Reason: Nausea/Vomiting Last Admin: 07/30/16 10:21 Dose: 10 mg Ondansetron HCl (Zofran Inj) 4 mg IVP Q6H PRN PRN Reason: Nausea/Vomiting Pantoprazole Sodium (Protonix Ec Tab) 40 mg PO 0630 [facility] Last Admin: 07/30/16 05:45 Dose: 40 mg Primidone (Mysoline) 50 mg PO DAILY [facility] Last Admin: 07/30/16 10:13 Dose: 50 mg Sertraline HCl (Zoloft) 25 mg PO DAILY [facility] Last Admin: 07/30/16 10:16 Dose: 25 mg Sevelamer HCl (Renagel) 800 mg PO 0800,1200,1700 [facility] Last Admin: 07/30/16 08:13 Dose: 800 mg Vitamin B Complex/Vit C/Folic Acid (Nephro-Felix) 1 tab PO DAILY [facility] Last Admin: 07/30/16 10:13 Dose: 1 tab Warfarin Sodium (Coumadin) 6 mg PO 1800 [facility] PRN Reason: Protocol Last Admin: 07/29/16 17:29 Dose: 6 mg - Labs Labs: 07/29/16 06:20 07/29/16 06:20 PT > 90.0 Seconds (9.9-11.8) H* 07/30/16 07:00 INR > 5.00 (0.93-1.08) H* 07/30/16 07:00 Attending/Attestation - Attestation I have personally seen and examined this patient.: Yes I have fully participated in the care of the patient.: Yes I have reviewed all pertinent clinical information, including history, physical exam and plan: Yes
--- NOTE | 2016-07-30 13:02 | CON ---
DATE: 07/30/2016 HISTORY OF PRESENT ILLNESS: This is a 66-year-old female with end-stage renal disease, on hemodialys is; also right below-knee amputation, antiphospholipid antibody syndrome, coronary artery disease, hi story of DVT, Parkinson disease, GERD, CHF, hypertension and diabetes who presented to the hospital w ith lethargy and altered mental status. The patient transferred to [facility] [place] for rehab. PAST MEDICAL HISTORY: End-stage renal disease, antiphospholipid antibody syndrome, diabetes, coronar y artery disease, DVT, Parkinson's. SURGICAL HISTORY: Right below-knee amputation. SOCIAL HISTORY: Lives alone. ALLERGIES: CIPROFLOXACIN. REVIEW OF SYSTEMS: A 10-point review of system was negative except as noted above. PHYSICAL EXAMINATION: HEENT: Normocephalic, atraumatic. NECK: Supple. NEUROLOGIC: Alert, awake, oriented to self and place. Blood pressure ____/54. Cranial nerves II th rough XII were tested. Pupils reactive. EOM intact. Spontaneous movement of the extremities noted except right below-knee amputation. Deep tendon reflexes 1+, left plantar downgoing. Sensory appear s intact. Cerebellar and gait deferred. IMPRESSION: 1. The patient was admitted with altered mental state and lethargy, now feeling better, ____ encepha lopathy, possibly toxic metabolic. 2. Parkinson's. 3. Multiple medical problems. PLAN: Continue present management. Will follow up. Sal Soriano MD cc: [id number] TT: 07/30/2016 13:00:48 Confirmation # [id number] Dictation # [id number] keagan
[2016-07-30 15:16] LABS: ADD MANUAL DIFF? NO
[2016-07-30 15:22] LABS: BASO # 0.04 K/mm3 (0.0-2.0); BASO % 0.6 % (0.0-3.0); EOS # 0.1 (0.0-0.7); EOS % 1.8 % (1.5-5.0); GRAN # 4.64 (1.4-6.5); HEMATOCRIT 30.1 % (36.0-48.0); LYMPH # 0.9 (1.2-3.4); LYMPH % 14.7 % (22.0-35.0); MEAN CELL VOLUME 85.5 fL (80.0-105.0); MEAN CORPUSCULAR HEMOGLOBIN 27.6 pg (25.0-35.0); MEAN CORPUSCULAR HGB CONC 32.2 g/dl (31.0-37.0); MEAN PLATELET VOLUME 10.7 fl (7.0-11.0); MONO # 0.5 (0.1-0.6); MONO % 7.9 % (1.0-6.0); PLATELET COUNT 198 10^3/uL (120.0-450.0); RED CELL DISTRIBUTION WIDTH 18.5 % (11.5-14.5); WHITE BLOOD COUNT 6.2 10^3/ul (4.5-11.0)
[2016-07-30 15:43] LABS: BILIRUBIN,TOTAL 0.6 mg/dL (0.2-1.3); CALCIUM 9.1 mg/dL (8.4-10.5); PHOSPHOROUS 4.2 mg/dL (2.5-4.5); POTASSIUM 4.6 mmol/L (3.6-5.0); TOTAL PROTEIN 7.2 g/dL (5.8-8.3)
--- NOTE | 2016-07-30 16:32 | PN ---
DATE: 07/30/2016 ROOM: [address]. This is a 66-year-old female with recent uncontrolled type 2 insulin-requiring diabetes, now being fo llowed closely for metabolic management. Her glycemic levels are fluctuating, but improved, and the latest glucose levels have ranged from 98-129 and 218 mg/dL. Her latest chemistry showed a BUN of 41 , sodium 130, potassium 4.6, chloride 91, CO2 25, glucose 218 and creatinine 6.2. So, at this time, we will add oral hypoglycemic therapy with Prandin given as 2 mg p.o. t.i.d. before meals to start to day as ordered. With the underlying advanced renal insufficiency, it is more prudent and safer to gi ve her short acting low-dose oral hypoglycemic drug therapy to cover her mealtime requirements and gl ycemic fluctuations thereof. We will increase her Levemir to 14 units subQ at bedtime daily to start tonight. We will continue also the low-dose correction scale using Humalog insulin as given to obvi ate hypoglycemia and detailed orders have been given. We will titrate incrementally as indicated to optimize metabolic control. We will follow. Ladonna Akers MD cc: [id number] TT: 07/30/2016 16:32:07 Confirmation # [id number] Dictation # [id number] kristal
[2016-07-30] MEDS ORDERED: Insulin Detemir 100 units/ml Vial (Levemir) SC SCH (22:00)
[2016-07-31] MEDS: Pantoprazole 40 mg EC Tab PO SCH (06:22)
[2016-07-31 07:16] LABS: ADD MANUAL DIFF? NO
[2016-07-31 07:25] LABS: BASO # 0.05 K/mm3 (0.0-2.0); BASO % 0.7 % (0.0-3.0); EOS # 0.2 (0.0-0.7); EOS % 3.6 % (1.5-5.0); GRAN # 5.18 (1.4-6.5); GRAN % 77.5 % (50.0-68.0); HEMATOCRIT 36.2 % (36.0-48.0); LYMPH # 0.8 (1.2-3.4); LYMPH % 11.5 % (22.0-35.0); MEAN CELL VOLUME 86.6 fL (80.0-105.0); MEAN CORPUSCULAR HEMOGLOBIN 27.8 pg (25.0-35.0); MEAN PLATELET VOLUME 10.6 fl (7.0-11.0); MONO # 0.5 (0.1-0.6); MONO % 6.7 % (1.0-6.0); PLATELET COUNT 220 10^3/uL (120.0-450.0); RED CELL DISTRIBUTION WIDTH 18.9 % (11.5-14.5); WHITE BLOOD COUNT 6.7 10^3/ul (4.5-11.0)
[2016-07-31 07:38] LABS: BILIRUBIN,TOTAL 0.7 mg/dL (0.2-1.3); CALCIUM 9.9 mg/dL (8.4-10.5); POTASSIUM 4.2 mmol/L (3.6-5.0); TOTAL PROTEIN 8.3 g/dL (5.8-8.3)
[2016-07-31 07:50] LABS: PARTIAL THROMBOPLASTIN TIME 59.8 Seconds (23.7-30.8)
[2016-07-31 08:10] LABS: INR > 5.00 (0.93-1.08)
[2016-07-31] MEDS: Insulin Lispro (humaLOG) LOW Coverage SC SCH ×4 (08:14→21:38)
--- NOTE | 2016-07-31 09:35 | PN ---
DATE: 07/31/2016 SUBJECTIVE: The patient is currently comfortable. She says she has no pains. Dialysis is going wel l with no issues. PHYSICAL EXAMINATION: VITAL SIGNS: Temperature is 98.3, pulse of 58, blood pressure 199/66, respirations 17. GENERAL: The patient comfortable, in no acute distress. HEENT: Anicteric sclerae. Moist mucosa. NECK: No JVD or adenopathy. CARDIAC: S1/S2. No murmurs. No rubs. Regular. RESPIRATORY: Clear to auscultation bilaterally. No wheezes, rales, or rhonchi. Good air entry. ABDOMEN: Bowel sounds are positive, soft, nontender, and nondistended. EXTREMITIES: No edema. Has 1+ pulses. LABS: White count of 6.7, hemoglobin 11.6, creatinine is 3.6. ASSESSMENT: 1. End-stage renal disease, on hemodialysis. 2. Antiphospholipid antibodies, on Coumadin. 3. Coronary artery disease. 4. Peripheral arterial disease. 5. Hypertension. 6. Left arteriovenous fistula. 7. Diabetes, type 2. 8. Chronic anemia secondary to chronic kidney disease. 9. Gastroesophageal reflux disease. PLAN: The patient is currently comfortable. She is getting hemodialysis 3 times a week. She is on Coumadin for her anticoagulation. Her last INR was elevated at greater than 5. The Coumadin has bee n placed on hold. The patient is on Levemir for diabetes, on Lipitor for dyslipidemia. She is on No rvasc for hypertension. The patient is on Renagel for secondary hyperparathyroidism. The patient is on labetalol for hypertension, is also on lisinopril. She does not allow us to take the amount of f luid that she needs off in order to help control her blood pressure. She is nonadherent to her medic ation regimen and treatment plan. Bebo Eller MD cc: [id number] TT: 07/31/2016 09:35:03 Confirmation # [id number] Dictation # [id number] mn
[2016-07-31] MEDS: Multivitamin Vitamin B Complex (Nephro-Vite) Tab PO SCH (10:35)
[2016-07-31] MEDS: Collagenase 250 Units/gm Ointment(30 gm) TOP SCH (10:37)
--- NOTE | 2016-07-31 14:30 | CP.PCM.PN ---
<Nestor Castellanos - Last Filed: 07/31/16 16:20> Subjective - Date & Time of Evaluation Date of Evaluation: 07/31/16 Time of Evaluation: 16:20 - Subjective Subjective: Medicine progress note - Nestor Emanuel PGY1 Patient seen and examined at bedside this morning. No acute overnight events or new complaints. Patient was set to be discharged today however her INR remains > 5 despite holding her coumadin and being given vitamin K. Additionally, she has remained hypertensive throughout the day. Patient given an additional dose of vitamin K today and her clonidine was changed from PRN to scheduled. Denies chest pain, palpitations, SOB. Objective - Vital Signs/Intake and Output Vital Signs (last 24 hours): Temp Pulse Resp BP Pulse Ox 97.5 F L 55 L 18 141/65 99 07/31/16 10:00 07/31/16 14:01 07/31/16 10:00 07/31/16 14:01 07/30/16 10:00 Intake and Output: 07/31/16 07/31/16 06:59 18:59 Intake Total 420 Balance 420 - Medications Medications: Current Medications Acetaminophen (Tylenol 325mg Tab) 650 mg PO Q6H PRN PRN Reason: Pain, moderate (4-7) Last Admin: 07/30/16 10:17 Dose: 650 mg Amlodipine Besylate (Norvasc) 10 mg PO DAILY [facility] PRN Reason: Protocol Last Admin: 07/31/16 10:36 Dose: 10 mg Aspirin (Ecotrin) 81 mg PO 0800 [facility] Last Admin: 07/31/16 08:16 Dose: 81 mg Atorvastatin Calcium (Lipitor) 40 mg PO HS [facility] Last Admin: 07/30/16 21:23 Dose: 40 mg Carbidopa/Levodopa (Sinemet 10/100) 1 tab PO TID [facility] Last Admin: 07/31/16 14:02 Dose: 1 tab Carvedilol (Coreg) 6.25 mg PO 0800,1700 [facility] Last Admin: 07/31/16 08:15 Dose: 6.25 mg Clonidine HCl (Catapres) 0.3 mg PO Q12 [facility] PRN Reason: Protocol Clopidogrel Bisulfate (Plavix) 75 mg PO 0800 [facility] Last Admin: 07/31/16 08:16 Dose: 75 mg Collagenase (Santyl) 0 gm TOP DAILY [facility] Last Admin: 07/31/16 10:37 Dose: 1 applic Escitalopram Oxalate (Lexapro) 10 mg PO DAILY [facility] Last Admin: 07/31/16 10:35 Dose: 10 mg Hydralazine HCl (Apresoline) 100 mg PO Q8 [facility] Last Admin: 07/31/16 14:01 Dose: 100 mg Insulin Detemir (Levemir) 14 unit SC HS [facility] Last Admin: 07/30/16 21:30 Dose: 14 unit Insulin Human Lispro (Humalog Low) 0 units SC [facility] PRN Reason: Protocol Last Admin: 07/31/16 12:01 Dose: Not Given Labetalol HCl (Trandate) 800 mg PO Q12 [facility] Last Admin: 07/31/16 10:37 Dose: 800 mg Lisinopril (Zestril) 80 mg PO DAILY [facility] Last Admin: 07/31/16 10:39 Dose: 80 mg Metoclopramide HCl (Reglan) 10 mg PO Q8 PRN PRN Reason: Nausea/Vomiting Last Admin: 07/30/16 10:21 Dose: 10 mg Ondansetron HCl (Zofran Inj) 4 mg IVP Q6H PRN PRN Reason: Nausea/Vomiting Pantoprazole Sodium (Protonix Ec Tab) 40 mg PO 0630 [facility] Last Admin: 07/31/16 06:22 Dose: 40 mg Primidone (Mysoline) 50 mg PO DAILY [facility] Last Admin: 07/31/16 10:35 Dose: 50 mg Repaglinide (Prandin) 2 mg PO AC [facility] Last Admin: 07/31/16 12:30 Dose: 2 mg Sertraline HCl (Zoloft) 25 mg PO DAILY [facility] Last Admin: 07/31/16 10:39 Dose: 25 mg Sevelamer HCl (Renagel) 800 mg PO 0800,1200,1700 [facility] Last Admin: 07/31/16 12:45 Dose: 800 mg Vitamin B Complex/Vit C/Folic Acid (Nephro-Jerry) 1 tab PO DAILY [facility] Last Admin: 07/31/16 10:35 Dose: 1 tab Warfarin Sodium (Coumadin) 6 mg PO 1800 [facility] PRN Reason: Protocol Last Admin: 07/29/16 17:29 Dose: 6 mg - Labs Labs: 07/31/16 06:30 07/31/16 06:30 PT 83.6 Seconds (9.9-11.8) H* 07/31/16 06:30 INR > 5.00 (0.93-1.08) H* 07/31/16 06:30 APTT 59.8 Seconds (23.7-30.8) H 07/31/16 06:30 - Constitutional Appears: Well, Non-toxic, No Acute Distress - Head Exam Head Exam: ATRAUMATIC, NORMAL INSPECTION, NORMOCEPHALIC - Eye Exam Eye Exam: EOMI, PERRL - ENT Exam ENT Exam: Mucous Membranes Moist - Neck Exam Neck Exam: Normal Inspection - Respiratory Exam Respiratory Exam: Clear to Ausculation Bilateral. absent: Rales, Rhonchi, Wheezes - Cardiovascular Exam Cardiovascular Exam: RRR, +S1, +S2, Murmur. absent: Gallop, Rubs - GI/Abdominal Exam GI & Abdominal Exam: Soft. absent: Distended, Firm, Guarding, Rigid, Rebound - Extremities Exam Additional comments: right BKA - Neurological Exam Neurological Exam: Alert, Awake, Oriented x3 - Psychiatric Exam Psychiatric exam: Normal Affect, Normal Mood - Skin Skin Exam: Dry, Intact, Normal Color, Warm Assessment and Plan - Assessment and Plan (Free Text) Plan: 1. Lethargy * CT head negative, no acute intracranial abnormalities * MRI head negative for acute intracranial pathology * Afebrile, no leukocytosis; no apparent sources of infection * Physical therapy limited these past 2 days due to elevated INR; However, patient encouraged to ambulate as much as tolerated with assistance 2. End stage renal disease * Patient on hemodialysis (Fri, , Fri); tolerating well * Continue with renagel and nephro-jerry * Nephrology consulted - Dr. Eller 3. Hypertension * Continue hydralazine, lisinopril, clonidine, norvasc 4. Diabetes Type 2 * Continue basal/bolus insulin regimen as per endocrinology recommendations * Continue humalog low dose ISS * Endocrinology consulted - Dr. Akers 5. CAD * Continue ASA 81, lipitor, coreg 6. Parkinsons * Continue home medication Sinemet 7. Antiphospholipid antibody syndrome * Warfarin 6mg PO qd was held given her supratherapeutic INR * Will continue to trend INR and resume when indicated * Patient given 5mg Vitamin K today 8. GI/DVT prophylaxis * protonix/warfarin Disposition: Patient was scheduled for discharge today however was not cleared for discharge due to supratherapeutic INR and hypertension. Her coumadin is on hold, she was given Vitamin K and her clonidine was changed from PRN to scheduled. Will reevaluate if she can be discharged tomorrow. Patient seen, reviewed, and case discussed with attending, Dr. Aguirre <Wm Aguirre - Last Filed: 08/30/16 08:12> Objective - Vital Signs/Intake and Output Vital Signs (last 24 hours): Temp Pulse Resp BP Pulse Ox 98.3 F 63 16 119/78 97 08/01/16 10:00 08/01/16 18:51 08/01/16 10:00 08/01/16 18:51 08/01/16 10:00 - Labs Labs: 08/01/16 06:00 08/01/16 06:00 PT 34.3 Seconds (9.9-11.8) H* 08/01/16 06:00 INR 3.18 (0.93-1.08) H 08/01/16 06:00 APTT 45.1 Seconds (23.7-30.8) H 08/01/16 06:00 Attending/Attestation - Attestation I have personally seen and examined this patient.: Yes I have fully participated in the care of the patient.: Yes I have reviewed all pertinent clinical information, including history, physical exam and plan: Yes Notes (Text): 08/30/16 08:12 Medical record note made by the resident after discussion with my direction and input after the patient was personally seen and examined by me. I have reviewed the chart and agree that the record reflects my personal performance of history, physical, data review and course for the patient that I have planned.
--- NOTE | 2016-07-31 15:23 | CP.PCM.PN ---
<Sharmila Em - Last Filed: 07/31/16 15:19> Subjective - Date & Time of Evaluation Date of Evaluation: 07/31/16 Time of Evaluation: 14:30 - Subjective Subjective: 66 year old female was seen at bedside resting comfortably regarding left heel ulceration. Denies any acute events overnight. She admits to pain on palpation of left heel. She is seen with the offloading boot on the LLE. Denies f/n/v/c/ sob/cp. Objective - Vital Signs/Intake and Output Vital Signs (last 24 hours): Temp Pulse Resp BP Pulse Ox 97.5 F L 55 L 18 141/65 99 07/31/16 10:00 07/31/16 14:01 07/31/16 10:00 07/31/16 14:01 07/30/16 10:00 Intake and Output: 07/31/16 07/31/16 06:59 18:59 Intake Total 420 Balance 420 - Medications Medications: Current Medications Acetaminophen (Tylenol 325mg Tab) 650 mg PO Q6H PRN PRN Reason: Pain, moderate (4-7) Last Admin: 07/30/16 10:17 Dose: 650 mg Amlodipine Besylate (Norvasc) 10 mg PO DAILY [facility] PRN Reason: Protocol Last Admin: 07/31/16 10:36 Dose: 10 mg Aspirin (Ecotrin) 81 mg PO 0800 [facility] Last Admin: 07/31/16 08:16 Dose: 81 mg Atorvastatin Calcium (Lipitor) 40 mg PO HS [facility] Last Admin: 07/30/16 21:23 Dose: 40 mg Carbidopa/Levodopa (Sinemet 10/100) 1 tab PO TID [facility] Last Admin: 07/31/16 14:02 Dose: 1 tab Carvedilol (Coreg) 6.25 mg PO 0800,1700 [facility] Last Admin: 07/31/16 08:15 Dose: 6.25 mg Clonidine HCl (Catapres) 0.3 mg PO Q12 [facility] PRN Reason: Protocol Clopidogrel Bisulfate (Plavix) 75 mg PO 0800 [facility] Last Admin: 07/31/16 08:16 Dose: 75 mg Collagenase (Santyl) 0 gm TOP DAILY [facility] Last Admin: 07/31/16 10:37 Dose: 1 applic Escitalopram Oxalate (Lexapro) 10 mg PO DAILY [facility] Last Admin: 07/31/16 10:35 Dose: 10 mg Hydralazine HCl (Apresoline) 100 mg PO Q8 [facility] Last Admin: 07/31/16 14:01 Dose: 100 mg Insulin Detemir (Levemir) 14 unit SC HS [facility] Last Admin: 07/30/16 21:30 Dose: 14 unit Insulin Human Lispro (Humalog Low) 0 units SC ACHS [facility] PRN Reason: Protocol Last Admin: 07/31/16 12:01 Dose: Not Given Labetalol HCl (Trandate) 800 mg PO Q12 [facility] Last Admin: 07/31/16 10:37 Dose: 800 mg Lisinopril (Zestril) 80 mg PO DAILY [facility] Last Admin: 07/31/16 10:39 Dose: 80 mg Metoclopramide HCl (Reglan) 10 mg PO Q8 PRN PRN Reason: Nausea/Vomiting Last Admin: 07/30/16 10:21 Dose: 10 mg Ondansetron HCl (Zofran Inj) 4 mg IVP Q6H PRN PRN Reason: Nausea/Vomiting Pantoprazole Sodium (Protonix Ec Tab) 40 mg PO 0630 [facility] Last Admin: 07/31/16 06:22 Dose: 40 mg Primidone (Mysoline) 50 mg PO DAILY [facility] Last Admin: 07/31/16 10:35 Dose: 50 mg Repaglinide (Prandin) 2 mg PO AC [facility] Last Admin: 07/31/16 12:30 Dose: 2 mg Sertraline HCl (Zoloft) 25 mg PO DAILY [facility] Last Admin: 07/31/16 10:39 Dose: 25 mg Sevelamer HCl (Renagel) 800 mg PO 0800,1200,1700 [facility] Last Admin: 07/31/16 12:45 Dose: 800 mg Vitamin B Complex/Vit C/Folic Acid (Nephro-Felix) 1 tab PO DAILY [facility] Last Admin: 07/31/16 10:35 Dose: 1 tab Warfarin Sodium (Coumadin) 6 mg PO 1800 [facility] PRN Reason: Protocol Last Admin: 07/29/16 17:29 Dose: 6 mg - Labs Labs: 07/31/16 06:30 07/31/16 06:30 PT 83.6 Seconds (9.9-11.8) H* 07/31/16 06:30 INR > 5.00 (0.93-1.08) H* 07/31/16 06:30 APTT 59.8 Seconds (23.7-30.8) H 07/31/16 06:30 - Constitutional Appears: Well, Non-toxic, No Acute Distress - Extremities Exam Additional comments: Lower extremity focused exam: Right: Below knee amputation noted Left: vasc: Non-palpable DP and PT pulses, CFT < 4 sec to all digits, TG wnl, no edema noted neuro: Gross sensation diminished derm: Full thickness open ulceration at the posterior aspect of heel measuring approximately 0.5cm x 0.5cm x 0.2cm - base is mixed granular and fibrotic tissue , scant serous drainage, no purulence, no malodor, no ascending cellulitis, no fluctuance, no probe to bone noted ortho: Mild pain on palpation to heel - Neurological Exam Neurological Exam: Alert, Awake - Psychiatric Exam Psychiatric exam: Normal Affect, Normal Mood Assessment and Plan - Assessment and Plan (Free Text) Assessment: 66 year old female seen for diabetic left heel ulceration, tejada grade 2 Plan: Patient examined and evaluated Discussed with attending Dr. Issa Chart, labs and vitals reviewed: afebrile, no leukocytosis Left heel cleansed with normal sterile saline Left heel dressed with santyl and optifoam Patient to continue wearing the multipodus boots at all times in bed Podiatry will continue to monitor while patient remains in house <Elmira Issa - Last Filed: 08/04/16 14:23> Objective - Vital Signs/Intake and Output Vital Signs (last 24 hours): Temp Pulse Resp BP Pulse Ox 98.3 F 63 16 119/78 97 08/01/16 10:00 08/01/16 18:51 08/01/16 10:00 08/01/16 18:51 08/01/16 10:00 - Labs Labs: 08/01/16 06:00 08/01/16 06:00 PT 34.3 Seconds (9.9-11.8) H* 08/01/16 06:00 INR 3.18 (0.93-1.08) H 08/01/16 06:00 APTT 45.1 Seconds (23.7-30.8) H 08/01/16 06:00 Attending/Attestation - Attestation I have personally seen and examined this patient.: Yes I have fully participated in the care of the patient.: Yes I have reviewed all pertinent clinical information, including history, physical exam and plan: Yes
--- NOTE | 2016-07-31 16:42 | PN ---
DATE: 07/31/2016 ROOM: 320 This is a 66-year-old female with recent uncontrolled type 2 insulin-requiring diabetes, now being fo llowed closely for metabolic management. Her glycemic levels were low normal overnight as noted and glucose levels were 74-102 and 189 mg/dL. Her latest chemistry showed a BUN of 18, sodium 138, potas sium 4.2, chloride 94, CO2 of 29, glucose 75, and creatinine 3.6. So, at this time, we will lower the basal insulin with Levemir to be given as 10 units subQ at bedtim e daily to start tonight. We will titrate incrementally as indicated to optimize metabolic control. We will continue the low-dose correction scale using Humalog insulin as given. Moreover, we will co ntinue also the Prandin given as 2 mg p.o. t.i.d. with meals as given. We will titrate incrementally as indicated to optimize metabolic control. We will follow and advise accordingly. Ladonna Akers MD cc: [id number] TT: 07/31/2016 16:41:58 Confirmation # [id number] Dictation # [id number] sn
[2016-07-31] MEDS ORDERED: Insulin Detemir 100 units/ml Vial (Levemir) SC SCH (22:00)
[2016-08-01] MEDS: Pantoprazole 40 mg EC Tab PO SCH (05:38)
[2016-08-01 06:43] LABS: ADD MANUAL DIFF? NO
[2016-08-01] MEDS: Insulin Lispro (humaLOG) LOW Coverage SC SCH ×3 (06:58→18:52)
[2016-08-01 07:09] LABS: INR 3.18 (0.93-1.08); PARTIAL THROMBOPLASTIN TIME 45.1 Seconds (23.7-30.8)
[2016-08-01 07:11] LABS: BILIRUBIN,TOTAL 0.7 mg/dL (0.2-1.3); CALCIUM 9.8 mg/dL (8.4-10.5); POTASSIUM 3.9 mmol/L (3.6-5.0); TOTAL PROTEIN 7.6 g/dL (5.8-8.3)
[2016-08-01 07:15] LABS: BASO # 0.04 K/mm3 (0.0-2.0); BASO % 0.6 % (0.0-3.0); EOS # 0.3 (0.0-0.7); EOS % 3.7 % (1.5-5.0); GRAN # 5.08 (1.4-6.5); GRAN % 75.8 % (50.0-68.0); HEMATOCRIT 33.3 % (36.0-48.0); LYMPH # 0.9 (1.2-3.4); LYMPH % 13.3 % (22.0-35.0); MEAN CELL VOLUME 87.2 fL (80.0-105.0); MEAN CORPUSCULAR HEMOGLOBIN 27.2 pg (25.0-35.0); MEAN CORPUSCULAR HGB CONC 31.2 g/dl (31.0-37.0); MEAN PLATELET VOLUME 11.2 fl (7.0-11.0); MONO # 0.4 (0.1-0.6); MONO % 6.6 % (1.0-6.0); PLATELET COUNT 218 10^3/uL (120.0-450.0); WHITE BLOOD COUNT 6.7 10^3/ul (4.5-11.0)
--- NOTE | 2016-08-01 10:01 | PN ---
DATE: 08/01/2016 SUBJECTIVE: The patient has no complaints of any headaches or dizziness. She is asking about going home. She says her pain is controlled. No issues on dialysis. PHYSICAL EXAMINATION: VITAL SIGNS: Temperature is 97.5, pulse of 54, blood pressure is 163/68, respirations 18. GENERAL: The patient comfortable, in no acute distress. HEENT: Anicteric sclerae. Moist mucosa. NECK: No JVD or adenopathy. CARDIAC: S1/S2. No murmurs. No rubs. Regular. RESPIRATORY: Clear to auscultation bilaterally. No wheezes, rales, or rhonchi. Good air entry. ABDOMEN: Bowel sounds are positive, soft, nontender, and nondistended. EXTREMITIES: No edema. Has 1+ pulses. LABORATORY DATA: White count of 6.7, hemoglobin 10.4, creatinine is 4.8. ASSESSMENT: 1. End-stage renal disease on hemodialysis. 2. Secondary hyperparathyroidism. 3. Anemia, chronic. 4. Coronary artery disease. 5. Antiphospholipid antibodies on Coumadin. 6. Peripheral arterial disease. 7. Hypertension. 8. Left arteriovenous fistula. 9. Diabetes type 2. 10. Gastroesophageal reflux disease. PLAN: The patient is comfortable. The patient's INR is at 3.1. She does get her INR checked on [facility] weekly and I would be happy to continue checking her INR. The patient is on Levemir for diabet es. She is on Lexapro for her anxiety. She is going to continue with Norvasc for hypertension. She is on Nephro-Felix for vitamins. She is on labetalol for hypertension. She is on lisinopril for her hypertension as well. She is on Zoloft. She is on a renal diet. Bebo Eller MD cc: [id number] TT: 08/01/2016 10:00:41 Confirmation # [id number] Dictation # [id number] tn
[2016-08-01] MEDS: Multivitamin Vitamin B Complex (Nephro-Vite) Tab PO SCH (11:43)
[2016-08-01] MEDS: Collagenase 250 Units/gm Ointment(30 gm) TOP SCH (11:49)
--- NOTE | 2016-08-01 12:36 | CP.PCM.DIS ---
<Nestor Castellanos - Last Filed: 08/02/16 16:07> Provider - Provider Date of Admission: 07/23/16 20:41 Attending physician: Wm Aguirre MD Primary care physician: Alexey Morton MD Consults: Nephrology - Dr. Eller Endocrinology - Dr. Akers Podiatry - Dr. Issa Neurology - Dr. Soriano Time Spent in preparation of Discharge (in minutes): 30 Hospital Course - Lab Results Lab Results: Most Recent Lab Values WBC 6.7 10^3/ul (4.5-11.0) 08/01/16 06:00 RBC 3.82 10^6/uL (3.5-6.1) 08/01/16 06:00 Hgb 10.4 gm/dL (12.0-16.0) L 08/01/16 06:00 Hct 33.3 % (36.0-48.0) L 08/01/16 06:00 MCV 87.2 fL (80.0-105.0) 08/01/16 06:00 MCH 27.2 pg (25.0-35.0) 08/01/16 06:00 MCHC 31.2 g/dl (31.0-37.0) 08/01/16 06:00 RDW 19.0 % (11.5-14.5) H 08/01/16 06:00 Plt Count 218 10^3/uL (120.0-450.0) 08/01/16 06:00 MPV 11.2 fl (7.0-11.0) H 08/01/16 06:00 Gran % 75.8 % (50.0-68.0) H 08/01/16 06:00 Lymph % (Auto) 13.3 % (22.0-35.0) L 08/01/16 06:00 [place] % (Auto) 6.6 % (1.0-6.0) H 08/01/16 06:00 Eos % (Auto) 3.7 % (1.5-5.0) 08/01/16 06:00 Baso % (Auto) 0.6 % (0.0-3.0) 08/01/16 06:00 Gran # 5.08 (1.4-6.5) 08/01/16 06:00 Lymph # 0.9 (1.2-3.4) L 08/01/16 06:00 [place] # 0.4 (0.1-0.6) 08/01/16 06:00 Eos # 0.3 (0.0-0.7) 08/01/16 06:00 Baso # 0.04 K/mm3 (0.0-2.0) 08/01/16 06:00 PT 34.3 Seconds (9.9-11.8) H* 08/01/16 06:00 INR 3.18 (0.93-1.08) H 08/01/16 06:00 APTT 45.1 Seconds (23.7-30.8) H 08/01/16 06:00 Sodium 134 mmol/L (132-148) 08/01/16 06:00 Potassium 3.9 mmol/L (3.6-5.0) 08/01/16 06:00 Chloride 92 mmol/L (98-107) L 08/01/16 06:00 Carbon Dioxide 29 mmol/L (21-33) 08/01/16 06:00 Anion Gap 17 (10-20) 08/01/16 06:00 BUN 28 mg/dL (7-21) H 08/01/16 06:00 Creatinine 4.8 mg/dL (0.5-1.4) H 08/01/16 06:00 Est GFR ( Amer) 11 08/01/16 06:00 Est GFR (Non-Af Amer) 9 08/01/16 06:00 POC Glucose (mg/dL) 74 mg/dL (65-110) 07/31/16 06:18 Random Glucose 99 mg/dL (70-110) 08/01/16 06:00 Calcium 9.8 mg/dL (8.4-10.5) 08/01/16 06:00 Phosphorus 4.2 mg/dL (2.5-4.5) 07/30/16 15:00 Magnesium 2.2 mg/dL (1.7-2.2) 07/25/16 14:20 Total Bilirubin 0.7 mg/dL (0.2-1.3) 08/01/16 06:00 AST 28 U/L (15-39) 08/01/16 06:00 ALT 18 U/L (7-56) 08/01/16 06:00 Alkaline Phosphatase 121 U/L (38-133) 08/01/16 06:00 Total Protein 7.6 g/dL (5.8-8.3) 08/01/16 06:00 Albumin 3.8 g/dL (3.0-4.8) 08/01/16 06:00 Globulin 3.7 gm/dL 08/01/16 06:00 Albumin/Globulin Ratio 1.0 (1.1-1.8) L 08/01/16 06:00 - Hospital Course Hospital Course: Patient is a 66yo female w/ PMHx of ESRD on hemodialysis (Tue, Thurs, Sat), right-side BKA, antiphospholipid antibody syndrome, CAD s/p stent and CABG, history of DVT, Parkinsons, GERD, CHF, HTN, DM2 presented to ED c/o lethargy and altered mental status. As per family member, she had been lethargic unable to get out of bed. On initial exam, patient was oriented to person and place. CT head was negative with no acute intracranial abnormalities and MRI head was negative for acute intracranial pathology. Patient remained afebrile, labs showed no leukocytosis. Neurology was consulted for evaluation, as well as endocrinology for insulin management, podiatry for foot evaluation and nephrology for her end stage renal disease. Patient was subsequently approved for TCU/[facility] due to deconditioning. During her subacute rehabilitation stay, patient tolerated PT appropriately. Podiatry managed the diabetic left heel ulceration while the patient was in-house. Recommended continued use of multipodus boot while in bed. Patient had a supratherapeutic INR during her TCU stay and had her coumadin held and was given vitamin k on two separate occasions. Her INR on discharge was 3.18 and the patient was instructed to hold her coumadin for 2 additional days and to follow up within 1 week for a repeat check of her INR. She was given a lower dose of her coumadin (3mg) and instructed to take as directed. Patient was subsequently discharged with instructions to follow up with her PMD (Dr. Morton), nephrology (Dr. Eller) and copy writer (Dr. Akers) within 1 week of discharge. She was advised to monitor her blood sugars closely as well as her blood pressure and to continue taking her home medications as directed. Discharge Exam - Head Exam Head Exam: ATRAUMATIC, NORMAL INSPECTION, NORMOCEPHALIC - Eye Exam Eye Exam: EOMI, PERRL - ENT Exam ENT Exam: Mucous Membranes Moist - Neck Exam Neck exam: Normal Inspection - Respiratory Exam Respiratory Exam: Clear to PA & Lateral. absent: Rales, Rhonchi, Wheezes - Cardiovascular Exam Cardiovascular Exam: RRR, +S1, +S2, Systolic Murmur. absent: Gallop, Rubs - GI/Abdominal Exam GI & Abdominal Exam: Normal Bowel Sounds, Soft. absent: Distended, Firm, Guarding, Rebound, Tenderness - Neurological Exam Neurological exam: Alert, Oriented x3 - Psychiatric Exam Psychiatric exam: Normal Affect, Normal Mood - Skin Skin Exam: Dry, Intact, Normal Color, Warm Discharge Plan - Follow Up Plan Condition: GOOD Disposition: HOME/ ROUTINE Instructions: Bradycardia (DC), Hypertension (DC), Altered Mental Status (GEN) Additional Instructions: 1. Follow up with your PMD, Dr. Morton within 1 week. 2. Follow up with your rigger up, Dr. Eller within 1 week. 3. Do not take your coumadin today (, August 01) or tomorrow (Friday, August 02). 4. Resume your new prescription of Coumadin as directed on Friday, August 03. 5. Make sure to follow up with your PMD and rigger up to have your INR checked within 1 week. 6. Return to the emergency room should you feel ill or have worsening of your symptoms. Referrals: Alexey Morton MD [Primary Care Provider] - Bebo Eller MD [Staff Provider] - <Alexye Morton - Last Filed: 08/09/16 09:15> Provider - Provider Date of Admission: 07/23/16 20:41 Attending physician: Wm Aguirre MD Primary care physician: Alexey Morton MD Hospital Course - Lab Results Lab Results: Most Recent Lab Values WBC 6.7 10^3/ul (4.5-11.0) 08/01/16 06:00 RBC 3.82 10^6/uL (3.5-6.1) 08/01/16 06:00 Hgb 10.4 gm/dL (12.0-16.0) L 08/01/16 06:00 Hct 33.3 % (36.0-48.0) L 08/01/16 06:00 MCV 87.2 fL (80.0-105.0) 08/01/16 06:00 MCH 27.2 pg (25.0-35.0) 08/01/16 06:00 MCHC 31.2 g/dl (31.0-37.0) 08/01/16 06:00 RDW 19.0 % (11.5-14.5) H 08/01/16 06:00 Plt Count 218 10^3/uL (120.0-450.0) 08/01/16 06:00 MPV 11.2 fl (7.0-11.0) H 08/01/16 06:00 Gran % 75.8 % (50.0-68.0) H 08/01/16 06:00 Lymph % (Auto) 13.3 % (22.0-35.0) L 08/01/16 06:00 [place] % (Auto) 6.6 % (1.0-6.0) H 08/01/16 06:00 Eos % (Auto) 3.7 % (1.5-5.0) 08/01/16 06:00 Baso % (Auto) 0.6 % (0.0-3.0) 08/01/16 06:00 Gran # 5.08 (1.4-6.5) 08/01/16 06:00 Lymph # 0.9 (1.2-3.4) L 08/01/16 06:00 [place] # 0.4 (0.1-0.6) 08/01/16 06:00 Eos # 0.3 (0.0-0.7) 08/01/16 06:00 Baso # 0.04 K/mm3 (0.0-2.0) 08/01/16 06:00 PT 34.3 Seconds (9.9-11.8) H* 08/01/16 06:00 INR 3.18 (0.93-1.08) H 08/01/16 06:00 APTT 45.1 Seconds (23.7-30.8) H 08/01/16 06:00 Sodium 134 mmol/L (132-148) 08/01/16 06:00 Potassium 3.9 mmol/L (3.6-5.0) 08/01/16 06:00 Chloride 92 mmol/L (98-107) L 08/01/16 06:00 Carbon Dioxide 29 mmol/L (21-33) 08/01/16 06:00 Anion Gap 17 (10-20) 08/01/16 06:00 BUN 28 mg/dL (7-21) H 08/01/16 06:00 Creatinine 4.8 mg/dL (0.5-1.4) H 08/01/16 06:00 Est GFR ( Amer) 11 08/01/16 06:00 Est GFR (Non-Af Amer) 9 08/01/16 06:00 POC Glucose (mg/dL) 153 mg/dL (65-110) H 08/01/16 11:04 Random Glucose 99 mg/dL (70-110) 08/01/16 06:00 Calcium 9.8 mg/dL (8.4-10.5) 08/01/16 06:00 Phosphorus 4.2 mg/dL (2.5-4.5) 07/30/16 15:00 Magnesium 2.2 mg/dL (1.7-2.2) 07/25/16 14:20 Total Bilirubin 0.7 mg/dL (0.2-1.3) 08/01/16 06:00 AST 28 U/L (15-39) 08/01/16 06:00 ALT 18 U/L (7-56) 08/01/16 06:00 Alkaline Phosphatase 121 U/L (38-133) 08/01/16 06:00 Total Protein 7.6 g/dL (5.8-8.3) 08/01/16 06:00 Albumin 3.8 g/dL (3.0-4.8) 08/01/16 06:00 Globulin 3.7 gm/dL 08/01/16 06:00 Albumin/Globulin Ratio 1.0 (1.1-1.8) L 08/01/16 06:00 Attending/Attestation - Attestation I have personally seen and examined this patient.: Yes I have fully participated in the care of the patient.: Yes I have reviewed all pertinent clinical information, including history, physical exam and plan: Yes Notes (Text): 08/09/16 09:15 Medical record note made by the resident after discussion with my direction and input after the patient was personally seen and examined by me. I have reviewed the chart and agree that the record accurately reflects by personal performance of the history, physical exam, data review, and medical decision-making, in the course for the patient. I have also personally directed the plan of care.
[2016-08-01 13:02] VITALS: RESP 16; TEMP 98.3; O2SAT 97
--- NOTE | 2016-08-01 15:09 | PN ---
DATE: 08/01/2016 ROOM: 320 This is a 66-year-old female with recent uncontrolled type 2 insulin-requiring diabetes, now with low normal glycemic profile as noted. Her latest glucose levels have ranged from 75-99 and 189 mg/dL. Her latest chemistry showed a BUN of 28, sodium 134, potassium 3.9, chloride 92, CO2 of 29, glucose 9 9, and creatinine 4.8. So, at this time, we will continue the same basal and bolus insulin regimen as given with Levemir giv en as 10 units subQ at bedtime daily as given. We will continue the Prandin given as 2 mg p.o. t.i.d . before meals as ordered. We will also continue the low-dose correction scale using Humalog insulin as given. We will follow and advise accordingly. Ladonna Akers MD cc: [id number] TT: 08/01/2016 15:09:16 Confirmation # [id number] Dictation # [id number]
[2016-08-01 18:54] VITALS: BP 119/78; PULSE 63
== END 2016-08-01 19:51 | disposition home or self-care (01) | DRG 814 ==
LOC: TRCU 20:41
PROVIDERS: ADMIT Internal Medicine; ATTEND Internal Medicine
PROC: F07Z9ZZ Gait Training/Functional Ambulation Treatment (ICD-10-PCS; principal; 2016-07-24)
PROC: F07M6ZZ Therapeutic Exercise Treatment of Musculoskeletal System - Whole Body (ICD-10-PCS; 2016-07-24)
PROC: F08Z1ZZ Dressing Techniques Treatment (ICD-10-PCS; 2016-07-24)
PROC: F08Z2ZZ Grooming/Personal Hygiene Treatment (ICD-10-PCS; 2016-07-24)
PROC: F08Z0ZZ Bathing/Showering Techniques Treatment (ICD-10-PCS; 2016-07-24)
PROC: F08Z4ZZ Home Management Treatment (ICD-10-PCS; 2016-07-24)
PROC: 5A1D00Z (ICD-10-PCS; 2016-07-25)
DX: D68.61 Antiphospholipid syndrome (principal); G92 Toxic encephalopathy; N25.81 Secondary hyperparathyroidism of renal origin; N18.6 End stage renal disease; E11.22 Type 2 diabetes mellitus with diabetic chronic kidney disease; L97.429 Non-pressure chronic ulcer of left heel and midfoot with unspecified severity; E11.621 Type 2 diabetes mellitus with foot ulcer; I50.9 Heart failure, unspecified; E11.649 Type 2 diabetes mellitus with hypoglycemia without coma; D63.1 Anemia in chronic kidney disease; G20 Parkinson's disease; I12.9 Hypertensive chronic kidney disease with stage 1 through stage 4 chronic kidney disease, or unspecified chronic kidney disease; I25.10 Atherosclerotic heart disease of native coronary artery without angina pectoris; Z95.1 Presence of aortocoronary bypass graft; Z95.5 Presence of coronary angioplasty implant and graft; I73.9 Peripheral vascular disease, unspecified; K21.9 Gastro-esophageal reflux disease without esophagitis; R79.1 Abnormal coagulation profile; Z79.4 Long term (current) use of insulin; Z86.718 Personal history of other venous thrombosis and embolism; Z87.01 Personal history of pneumonia (recurrent); Z87.891 Personal history of nicotine dependence; Z89.511 Acquired absence of right leg below knee; Z99.2 Dependence on renal dialysis; Z89.412 Acquired absence of left great toe; R42 Dizziness and giddiness; R55 Syncope and collapse; R56.9 Unspecified convulsions; Z98.42 Cataract extraction status, left eye; Z98.41 Cataract extraction status, right eye; F41.9 Anxiety disorder, unspecified; F32.89 Other specified depressive episodes; Z87.19 Personal history of other diseases of the digestive system; Z88.1 Allergy status to other antibiotic agents; Z91.018 Allergy to other foods; E78.5 Hyperlipidemia, unspecified

== ENCOUNTER 2016-08-08 09:44 | Inpatient (IN) | payer MEDICARE, BC ==
[2016-08-08 10:04] VITALS: BMI 25.0
[2016-08-08] MEDS ORDERED: cefTRIAXone 1 gm 1 GM/100 ML BAG IVPB STA (10:09)
--- NOTE | 2016-08-08 10:10 | ED PDOC ---
Arrival/HPI - General Chief Complaint: Cough, Cold, Congestion Time Seen by Provider: 08/08/16 10:09 Historian: Patient, Family (Daughter) - History of Present Illness Narrative History of Present Illness (Text): 08/08/16 10:10 A 66 year old female, whose past medical history of ESRD on hemodialysis T/TH/ SAT and right BKA, was brought into the emergency department by family complaining of a productive cough for the last few days. Daughter reports patient woke up with generalized weakness and did not take her to dialysis this morning. Patient denies any fever, chills, nausea, vomiting, abdominal pain, urinary symptoms, chest pain or any other complaints. PMD: Dr. Morton Customer Quality Engineer: Dr. Eller Time/Duration: < week Symptom Course: Unchanged Quality: Other Context: Other Past Medical History - Provider Review Nursing Documentation Reviewed: Yes - Infectious Disease Hx of Infectious Diseases: None - Tetanus Immunization Tetanus Immunization: Unknown - Reproductive Menopause: Yes - Cardiac Hx Cardiac Disorders: Yes Hx Congestive Heart Failure: Yes Hx Hypertension: Yes - Pulmonary Hx Pneumonia: Yes - Neurological Hx Neurological Disorder: Yes (syncope) Hx Dizziness: Yes Hx Parkinson's Disease: Yes (hand tremors) Hx Seizures: Yes (x1) - HEENT Hx HEENT Disorder: Yes (andreafski l ear, glasses) Hx Cataracts: Yes (BILATERAL CATARACT SURGERY) Hx Deafness: No (denies) - Renal Date of Last Dialysis Treatment: 08/06/16 - Endocrine/Metabolic Hx Diabetes Mellitus Type 2: Yes - Hematological/Oncological Hx Blood Disorders: Yes Hx Anemia: Yes (blood transfusions) - Integumentary Hx Dermatological Disorder: Yes (RIGHT BKA,LEFT GREAT TOE AMPUTATION) - Musculoskeletal/Rheumatological Hx Falls: Yes - Gastrointestinal Hx Gastrointestinal Disorders: Yes (hx c dif/diverticulitis/ reflux) Hx Pancreatitis: Yes Other/Comment: hx colitis had diarrhea x 1 yr and 70 lb weight loss - Genitourinary/Gynecological Hx Genitourinary Disorders: No - Psychiatric Hx Psychophysiologic Disorder: Yes Hx Anxiety: Yes Hx Depression: Yes Hx Emotional Abuse: No Hx Physical Abuse: No Hx Sexual Abuse: No Hx Substance Use: No - Surgical History Hx Amputation: Yes (hx gangrene amputation of left great toe, right bka) Hx Cardiac Catheterization: Yes Hx Coronary Stent: Yes Hx Musculoskeletal Surgery: Yes (right BKA) Other/Comment: LEFT FEMORAL BYPASSl meniscus/ r bka amputation due to ischemia and pain, c section x 2, left upper arm av fistula failed, has right chest wall udall, left great toe amputated due to gangrene - Anesthesia Hx Anesthesia: Yes Hx Anesthesia Reactions: No Hx Malignant Hyperthermia: No - Suicidal Assessment Feels Threatened In Home Enviroment: No Family/Social History - Physician Review Nursing Documentation Reviewed: Yes Family/Social History: No Known Family HX Smoking Status: Former Smoker Hx Alcohol Use: No Hx Substance Use: No Hx Substance Use Treatment: No Allergies/Home Meds Allergies/Adverse Reactions: Allergies ciprofloxacin Allergy (Verified 07/24/16 04:09) SWELLING hallucination clarithromycin [From Biaxin] Allergy (Verified 07/24/16 04:09) SWELLING pepper Allergy (Verified 07/24/16 04:09) SWELLING Home Medications: Home Meds Medication Instructions Recorded Confirmed Insulin Aspart [Novolog] 2 unit SQ ACTID 04/23/15 08/08/16 Aspirin [Aspirin EC] 81 mg PO DAILY 05/10/15 08/08/16 Carvedilol [Coreg] 6.25 mg PO Q12 07/20/16 08/08/16 Clonidine HCl [Catapres] 0.3 mg PO BID 07/20/16 08/08/16 Pantoprazole Sodium [Protonix] 40 mg PO DAILY 07/20/16 08/08/16 Primidone [Mysoline] 50 mg PO DAILY 07/20/16 08/08/16 Amiodarone HCl [Pacerone] 200 mg PO DAILY 08/08/16 08/08/16 Atorvastatin Calcium [Lipitor] 80 mg PO DAILY 08/08/16 08/08/16 Gabapentin [Neurontin] 100 mg PO BID 08/08/16 08/08/16 Insulin Detemir [Levemir] 4 unit SC BID 08/08/16 08/08/16 Lisinopril [Zestril] 40 mg PO DAILY 08/08/16 08/08/16 Sertraline [Zoloft] 25 mg PO HS 08/08/16 08/08/16 Sevelamer [Renagel] 800 mg PO TID 08/08/16 08/08/16 Warfarin [Coumadin] 10 mg PO 1800 08/08/16 08/08/16 Zinc [Zinc Sulfate 220 mg Cap] 220 mg PO DAILY 08/08/16 08/08/16 hydrALAZINE [Apresoline] 50 mg PO BID 08/08/16 08/08/16 Physical Exam - Physical Exam Narrative Physical Exam (Text): - Review of Systems Constitutional: (+) Generalized weakness absent: Fatigue, Weight Change, Fevers Eyes: Normal ENT: Normal Respiratory: (+) Cough, Sputum Cardiovascular: Normal absent: Chest pain, Palpitations, Syncope Gastrointestinal: Normal absent: Abdominal pain, Diarrhea, Nausea, Vomiting Genitourinary: Normal. absent: Dysuria, Frequency, Hematuria Musculoskeletal: Normal. absent: Arthralgias, Back Pain, Neck Pain Skin: Normal Neurological: Normal absent: Focal Weakness Endocrine: Normal Hemo/Lymphatic: Normal Psychiatric: Normal - Physical exam Patient appears age appropriate, speaking full sentences without difficulty - Systems Exam Head: Present: Atraumatic, Normocephalic Pupils: Present: PERRL Extraocular Muscles: Present: EOMI Conjunctiva: Present: Normal Mouth: Present: Moist Mucous Membranes Neck: Present: Normal Range of Motion. No: MIDLINE TENDERNESS, Paraspinal Tenderness Respiratory/Chest: Present: Mild respiratory Distress, Bilateral inspiratory and expiratory wheezing with bibasilar crackles No: Accessory Muscle Use, Tachypnic Cardiovascular: Present: Regular Rate and Rhythm, Normal S1, S2, Peripheral Pulses Present. No: Murmurs Abdomen: Present: Normal Bowel Sounds, No: Tenderness, Peritoneal Signs, Rebound, Guarding, Distention Back: Present: Normal Inspection. No: Midline Tenderness, Paraspinal Tenderness Upper Extremity: Present: Normal Inspection. No: Cyanosis, Edema Lower Extremity: Present: Right below the knee amputation No: Edema Neurological: Present: GCS=15, Speech Normal, cranial nerves II through XII fully intact with no cerebellar abnormality, neuro-sensory fully intact. No focal neurological deficits. Skin: Present: Warm, Dry, Normal Color. No: Rashes Lymphatic: Present: OX3, NI, NC Psychiatric: Present: Alert, Oriented x 3, Normal Insight, Normal Concentration Vital Signs Reviewed: Yes Vital Signs Temp Pulse Resp BP Pulse Ox 08/08/16 17:24 199/74 H 08/08/16 17:06 69 17 199/74 H 95 08/08/16 12:32 100 H 18 163/68 H 97 08/08/16 12:24 98.3 F 154 H 19 163/68 H 96 08/08/16 09:45 99.8 F H 61 18 180/72 H 93 L Temperature: Febrile Blood Pressure: Hypertensive Pulse: Regular Respiratory Rate: Normal Appearance: Positive for: Well-Appearing, Non-Toxic, Comfortable Pain Distress: None Mental Status: Positive for: Alert and Oriented X 3 Finger Stick Blood Glucose: 125 Medical Decision Making ED Course and Treatment: 08/08/16 10:10 Impression: A 66 year old female with a productive cough. Mild respiratory distress, wheezing and crackles on exam. Differential Diagnosis included but are not limited to: Bronchitis vs. PNA vs. COPD Plan: -- Chest xray -- EKG -- Labs -- Blood and Sputum culture -- Urinalysis -- Duoneb, Solumedrol, Rocephine and Azithromycin -- Reassess and disposition Progress Notes: Patient may be septic but due to hemodialysis and possible fluid overload 30 cc/ kg bolus was not given. EKG shows NSR at [address]-segment elevations, normal intervals. Interpreted by me. 08/08/16 10:[address] Eller, who states he will place the dialysis orders. Report Date : 08/08/2016 11:04:10 Procedure: Chest xray Dictator : Carl Petit MD IMPRESSION: Probable linear atelectasis at right base. Otherwise no acute abnormality. 08/08/16 11:55 On re-evaluation, patient's wheezing has improved. - Critical Care Critical Care Minutes: 30 minutes - Lab Interpretations Lab Results: 08/08/16 10:45 08/08/16 10:45 Lab Results 08/08/16 10:45: Sodium 132, Chloride 93 L, Potassium 5.5 H, Carbon Dioxide 26, Anion Gap 19, BUN 45 H, Creatinine 5.9 H, Est GFR ( Amer) 9, Est GFR (Non -Af Amer) 7, Random Glucose 99, Calcium 10.0, Phosphorus 3.8, Magnesium 2.1, Total Bilirubin 0.8, AST 21, ALT 19, Alkaline Phosphatase 110, Troponin I 0.10 D, NT-Pro-B Natriuret Pep 28532 H, Total Protein 7.2, Albumin 3.8, Globulin 3.5 , Albumin/Globulin Ratio 1.1 08/08/16 10:45: pO2 55, VBG pH 7.34, VBG pCO2 50.0, VBG HCO3 27.0, VBG Total CO2 28.5 H, VBG O2 Sat (Calc) 87.7 H, VBG Base Excess 0.5, VBG Potassium 5.6 H, Sodium 131.0 L, Chloride 98.0, Glucose 105, Lactate 1.7, FiO2 21.0, Venous Blood Potassium 5.6 H 08/08/16 10:45: PT 11.6, INR 1.07, APTT 28.7 08/08/16 10:45: WBC 5.4, RBC 3.79, Hgb 10.3 L, Hct 33.4 L, MCV 88.1, MCH 27.2, MCHC 30.8 L, RDW 18.7 H, Plt Count 146, MPV 10.8, Gran % 74.0 H, Lymph % (Auto) 16.6 L, [place] % (Auto) 7.3 H, Eos % (Auto) 1.5, Baso % (Auto) 0.6, Gran # 3.98, Lymph # 0.9 L, [place] # 0.4, Eos # 0.1, Baso # 0.03 08/08/16 09:51: POC Glucose (mg/dL) 125 H - RAD Interpretation Radiology Orders: 08/08/16 10:09 CHEST PORTABLE [RAD] Stat - Medication Orders Current Medication Orders: Albuterol/Ipratropium (Duoneb 3 Mg/0.5 Mg (3 Ml) Ud) 3 ml IH Q6 [facility] Amiodarone HCl (Cordarone) 200 mg PO DAILY [facility] Amlodipine Besylate (Norvasc) 10 mg PO DAILY [facility] Last Admin: 08/08/16 17:24 Dose: 10 mg Aspirin (Ecotrin) 81 mg PO DAILY [facility] Atorvastatin Calcium (Lipitor) 80 mg PO DIN [facility] Last Admin: 08/08/16 17:23 Dose: 80 mg Azithromycin (Zithromax) 500 mg PO DAILY [facility] PRN Reason: Protocol Carbidopa/Levodopa (Sinemet 10/100) 1 tab PO TID [facility] Carvedilol (Coreg) 6.25 mg PO Q12 [facility] Clonidine HCl (Catapres) 0.3 mg PO BID [facility] Escitalopram Oxalate (Lexapro) 10 mg PO DAILY [facility] Gabapentin (Neurontin) 100 mg PO BID [facility] PRN Reason: Protocol Guaifenesin/Dextromethorphan (Robitussin Dm) 5 ml PO Q4H PRN PRN Reason: Cough Hydralazine HCl (Apresoline) 50 mg PO BID [facility] Cefepime HCl (Maxipime 1gm) 1 gm in 100 mls @ 200 mls/hr IVPB Q24H [facility] Last Admin: 08/08/16 17:13 Dose: 200 mls/hr Insulin Detemir (Levemir) 4 unit SC BID [facility] Insulin Human Lispro (Humalog) 2 units SC ACHS [facility] Insulin Human Lispro (Humalog Low) 0 units SC ACHS [facility] PRN Reason: Protocol Lisinopril (Zestril) 40 mg PO DAILY [facility] Methylprednisolone (Solu-Medrol) 40 mg IVP Q12 [facility] Pantoprazole Sodium (Protonix Ec Tab) 40 mg PO DAILY [facility] Last Admin: 08/08/16 17:24 Dose: 40 mg Primidone (Mysoline) 50 mg PO DAILY [facility] Sertraline HCl (Zoloft) 25 mg PO DAILY [facility] Sertraline HCl (Zoloft) 25 mg PO HS [facility] Sevelamer HCl (Renagel) 800 mg PO TID [facility] Zinc Sulfate (Zinc Sulfate 220 Mg Cap) 220 mg PO DAILY [facility] Discontinued Medications Albuterol/Ipratropium (Duoneb 3 Mg/0.5 Mg (3 Ml) Ud) 3 ml IH STAT STA Stop: 08/08/16 10:13 Last Admin: 08/08/16 10:30 Dose: 3 ml Albuterol/Ipratropium (Duoneb 3 Mg/0.5 Mg (3 Ml) Ud) 3 ml IH STAT STA Stop: 08/08/16 11:56 Last Admin: 08/08/16 10:45 Dose: 3 ml Albuterol/Ipratropium (Duoneb 3 Mg/0.5 Mg (3 Ml) Ud) 3 ml IH STAT STA Stop: 08/08/16 11:57 Last Admin: 08/08/16 11:00 Dose: 3 ml Aspirin (Aspirin Chewable) 324 mg PO STAT [facility] Stop: 08/08/16 12:00 Last Admin: 08/08/16 12:10 Dose: 324 mg Ceftriaxone Sodium (Rocephin 1 Gram Ivpb) 1 gm in 100 mls @ 200 mls/hr IVPB STAT [facility] PRN Reason: Protocol Stop: 08/08/16 10:38 Last Admin: 08/08/16 17:24 Dose: 200 mls/hr Azithromycin (Zithromax 500mg In Ns) 500 mg in 250 mls @ 167 mls/hr IVPB STAT [facility] PRN Reason: Protocol Stop: 08/08/16 11:41 Last Admin: 08/08/16 10:58 Dose: 167 mls/hr Methylprednisolone (Solu-Medrol) 125 mg IVP STAT [facility]A Stop: 08/08/16 10:13 Last Admin: 08/08/16 10:58 Dose: 125 mg Nitroglycerin (Nitrostat Sl Tab) 0.3 mg SL STAT STA Stop: 08/08/16 12:00 Last Admin: 08/08/16 12:10 Dose: 0.3 mg ED OBSERVATION Date of observation admission: 08/08/16 Time of observation admission: 14:26 - Observation admission statement Patient is being placed in observation because:: Renal failure pending hemodialysis - Goals of Observation Goals of observation are:: Hemodialysis - Progress Note Progress Note: 08/08/16 14:26 Patient resting comfortably, in no acute distress. 08/08/16 14:32 Patient being sent to dialysis. 08/08/16 14:40 Unable to get in touch with Dr. Morton or Dr. Aguirre after multiple pages. Spoke with resident Bertrand, who states he will attempt to contact either physician. 08/08/16 14:44 Spoke with resident who discussed case with Dr. Aguirre, who accepted admission to his service. 08/08/16 17:43 pt back from HD still some wheezing, but states she feels much better BP elevated will order more nebs and NTG - Scribe Statement The provider has reviewed the documentation as recorded by the Scribsudhir Tabares Provider Scribe Attestation: All medical record entries made by the Scribe were at my direction and personally dictated by me. I have reviewed the chart and agree that the record accurately reflects my personal performance of the history, physical exam, medical decision making, and the department course for this patient. I have also personally directed, reviewed, and agree with the discharge instructions and disposition. Disposition/Present on Arrival - Present on Arrival Any Indicators Present on Arrival: No History of DVT/PE: Yes History of Uncontrolled Diabetes: No Urinary Catheter: No History of Decub. Ulcer: No History Surgical Site Infection Following: None - Disposition Have Diagnosis and Disposition been Completed?: Yes Diagnosis: CHF (congestive heart failure) Disposition: HOSPITALIZED Disposition Time: 10:49 Patient Plan: Admission Patient Problems: Current Active Problems Problem Status Onset CHF (congestive heart failure) Acute Condition: FAIR
[2016-08-08] MEDS ORDERED: Albuterol-Ipratrop 3 mg / 0.5 (3 ml) UD IH STA ×4 (10:12→17:44)
[2016-08-08] MEDS ORDERED: Azithromycin 500MG/NS 250ml 500 MG/250 ML BAG IVPB STA (10:12)
--- NOTE | 2016-08-08 11:05 | RAD ---
HISTORY: Sepsis Patient COMPARISON: 07/20/2016 FINDINGS: LUNGS: Probable linear atelectasis at right base. No infiltrate. PLEURA: No significant pleural effusion identified, no pneumothorax apparent. CARDIOVASCULAR: CABG. No congestive change. OSSEOUS STRUCTURES: No significant abnormalities. VISUALIZED UPPER ABDOMEN: Normal. OTHER FINDINGS: None. IMPRESSION: Probable linear atelectasis at right base. Otherwise no acute abnormality.
[2016-08-08 11:08] LABS: ADD MANUAL DIFF? NO
[2016-08-08 11:10] LABS: BASO # 0.03 K/mm3 (0.0-2.0); BASO % 0.6 % (0.0-3.0); EOS # 0.1 (0.0-0.7); EOS % 1.5 % (1.5-5.0); GRAN # 3.98 (1.4-6.5); HEMATOCRIT 33.4 % (36.0-48.0); LYMPH # 0.9 (1.2-3.4); LYMPH % 16.6 % (22.0-35.0); MEAN CELL VOLUME 88.1 fL (80.0-105.0); MEAN CORPUSCULAR HEMOGLOBIN 27.2 pg (25.0-35.0); MEAN CORPUSCULAR HGB CONC 30.8 g/dl (31.0-37.0); MEAN PLATELET VOLUME 10.8 fl (7.0-11.0); MONO # 0.4 (0.1-0.6); MONO % 7.3 % (1.0-6.0); PLATELET COUNT 146 10^3/uL (120.0-450.0); RED CELL DISTRIBUTION WIDTH 18.7 % (11.5-14.5); WHITE BLOOD COUNT 5.4 10^3/ul (4.5-11.0)
[2016-08-08 11:13] LABS: VENOUS BLOOD GAS BASE EXCESS 0.5 mmol/L (0.0-2.0); VENOUS BLOOD PH 7.34 (7.32-7.43)
[2016-08-08 11:22] LABS: ALB/GLOB RATIO 1.1 (1.1-1.8); BILIRUBIN,TOTAL 0.8 mg/dL (0.2-1.3); INR 1.07 (0.93-1.08); MAGNESIUM 2.1 mg/dL (1.7-2.2); PARTIAL THROMBOPLASTIN TIME 28.7 Seconds (23.7-30.8); PHOSPHOROUS 3.8 mg/dL (2.5-4.5); POTASSIUM 5.5 mmol/L (3.6-5.0); TOTAL PROTEIN 7.2 g/dL (5.8-8.3)
[2016-08-08 11:33] LABS: TROPONIN I 0.1 ng/mL
--- NOTE | 2016-08-08 14:35 | CARD ---
APPROVED REPORT EKG Measurement Heart [id number] <Conclusion> Normal sinus rhythm Left ventricular hypertrophy PRWP STTW changes c/w ischemia IVCD
--- NOTE | 2016-08-08 15:50 | CP.PCM.HP ---
<Angelica Dominguez - Last Filed: 08/08/16 20:51> History of Present Illness - History of Present Illness History of Present Illness: CC: I have been coughing and I felt short of breath Patient is a 66 y/o with PMH of ESRD ( on HD on T, Th, and sat), CAD with stents , and CABG, right BKA, IDDM, antiphospholipid syndrome, DVT, Parkinson disease, depression, seizure disorders, GERD, CHF, and HTN presenting with cough productive with sputum. Patient was not able to discrib the color of her sputum. Patient states she has been coughing since yesterday, along with subjective fever and chills. Patient didn't try anything at home to aleviate the cough. Patient came in today because the cough was getting worst. Patient denies cp, admits to shortness of breath and palpitation. Patient denies n/v/d. Patient was recently discharged from [facility] where she was sent when she was discharged [place] [facility] [place]. Patient is a poor historian with waxing and waning mental status. In the ER patient was treated with Rocephin, Zithromax, solumedrol and multiple duoneb treatments. PMH: As stated above PSH: HD catheter, right BKA Social: denies tobacco, alcohol or illicit drug use. Allergy: cipro, clarithromycin, and pepper. Home meds: please see laci for complete list. Present on Admission - Present on Admission Any Indicators Present on Admission: No History of DVT/PE: Yes History of Uncontrolled Diabetes: Yes Urinary Catheter: No Decubitus Ulcer Present: No Review of Systems - Review of Systems All systems: reviewed and no additional remarkable complaints except Review of Systems: As stated on HPI. Past Patient History - Infectious Disease Hx of Infectious Diseases: None - Tetanus Immunizations Tetanus Immunization: Unknown - Past Medical History & Family History Past Medical History?: Yes - Past Social History Smoking Status: Former Smoker Alcohol: None Drugs: Denies Home Situation {Lives}: Alone - CARDIAC Hx Cardiac Disorders: Yes Hx Congestive Heart Failure: Yes Hx Hypertension: Yes - PULMONARY Hx Pneumonia: Yes - NEUROLOGICAL Hx Neurological Disorder: Yes (syncope) Hx Dizziness: Yes Hx Parkinson's Disease: Yes (hand tremors) Hx Seizures: Yes (x1) - HEENT Hx HEENT Problems: Yes (douglas l ear, glasses) Hx Cataracts: Yes (BILATERAL CATARACT SURGERY) Hx Deafness: No (denies) - RENAL Date of Last Dialysis Treatment: 08/06/16 - ENDOCRINE/METABOLIC Hx Diabetes Mellitus Type 2: Yes - HEMATOLOGICAL/ONCOLOGICAL Hx Blood Disorders: Yes Hx Anemia: Yes (blood transfusions) - INTEGUMENTARY Hx Dermatological Problems: Yes (RIGHT BKA,LEFT GREAT TOE AMPUTATION) - MUSCULOSKELETAL/RHEUMATOLOGICAL Hx Falls: Yes - GASTROINTESTINAL Hx Gastrointestinal Disorders: Yes (hx c dif/diverticulitis/ reflux) Hx Pancreatitis: Yes Other/Comment: hx colitis had diarrhea x 1 yr and 70 lb weight loss - GENITOURINARY/GYNECOLOGICAL Hx Genitourinary Disorders: No - PSYCHIATRIC Hx Psychophysiologic Disorder: Yes Hx Anxiety: Yes Hx Depression: Yes Hx Emotional Abuse: No Hx Physical Abuse: No Hx Sexual Abuse: No Hx Substance Use: No - SURGICAL HISTORY Hx Amputation: Yes (hx gangrene amputation of left great toe, right bka) Hx Cardiac Catheterization: Yes Hx Coronary Stent: Yes Hx Musculoskeletal Surgery: Yes (right BKA) Other/Comment: LEFT FEMORAL BYPASSl meniscus/ r bka amputation due to ischemia and pain, c section x 2, left upper arm av fistula failed, has right chest wall udall, left great toe amputated due to gangrene - ANESTHESIA Hx Anesthesia: Yes Hx Anesthesia Reactions: No Hx Malignant Hyperthermia: No Meds Allergies/Adverse Reactions: Allergies Allergy/AdvReac Type Severity Reaction Status Date / Time ciprofloxacin Allergy SWELLING Verified 07/24/16 04:09 clarithromycin [From Biaxin] Allergy SWELLING Verified 07/24/16 04:09 pepper Allergy SWELLING Verified 07/24/16 04:09 Physical Exam - Constitutional Appears: No Acute Distress, Older Than Stated Age, Other (waxing and waning mental status. ) - Head Exam Head Exam: ATRAUMATIC, NORMAL INSPECTION, NORMOCEPHALIC - Eye Exam Eye Exam: Normal appearance, PERRL. absent: Scleral icterus - ENT Exam ENT Exam: Mucous Membranes Dry - Neck Exam Neck exam: Positive for: Normal Inspection - Respiratory Exam Respiratory Exam: Rhonchi (on the right side), Wheezes (at the bases), NORMAL BREATHING PATTERN. absent: Decreased Breath Sounds, Prolonged Expiratory Phase , Rales, Respiratory Distress, Stridor - Cardiovascular Exam Cardiovascular Exam: Tachycardia, REGULAR RHYTHM, RRR, +S1, +S2. absent: Gallop , JVD, Systolic Murmur - GI/Abdominal Exam GI & Abdominal Exam: Normal Bowel Sounds, Soft. absent: Distended (obese abdomen.), Rigid, Tenderness - Extremities Exam Extremities exam: Positive for: pedal edema (+2 on the left side, BKA on the left LE. ) - Back Exam Back exam: NORMAL INSPECTION - Neurological Exam Neurological exam: Alert Additional comments: axing and waning mental status, sluggish. - Psychiatric Exam Psychiatric exam: Anxious, Flat Affect - Skin Skin Exam: Dry, Normal Color, Warm Additional comments: bka stump with no drainage. Right sided HD catheter in use. Results - Vital Signs Recent Vital Signs: Last Vital Signs Temp 98.3 F 08/08/16 12:24 Pulse 100 H 08/08/16 12:32 Resp 18 08/08/16 12:32 BP 163/68 H 08/08/16 12:32 Pulse Ox 97 08/08/16 12:32 - Labs Result Diagrams: 08/08/16 10:45 08/08/16 10:45 Labs: Laboratory Results - last 24 hr 08/08/16 08/08/16 08/08/16 09:51 10:45 10:45 WBC 5.4 RBC 3.79 Hgb 10.3 L Hct 33.4 L MCV 88.1 MCH 27.2 MCHC 30.8 L RDW 18.7 H Plt Count 146 MPV 10.8 Gran % 74.0 H Lymph % (Auto) 16.6 L [place] % (Auto) 7.3 H Eos % (Auto) 1.5 Baso % (Auto) 0.6 Gran # 3.98 Lymph # 0.9 L [place] # 0.4 Eos # 0.1 Baso # 0.03 PT 11.6 INR 1.07 APTT 28.7 pO2 VBG pH VBG pCO2 VBG HCO3 VBG Total CO2 VBG O2 Sat (Calc) VBG Base Excess VBG Potassium Sodium Chloride Glucose Lactate FiO2 Potassium Carbon Dioxide Anion Gap BUN Creatinine Est GFR ( Amer) Est GFR (Non-Af Amer) POC Glucose (mg/dL) 125 H Random Glucose Calcium Phosphorus Magnesium Total Bilirubin AST ALT Alkaline Phosphatase Troponin I NT-Pro-B Natriuret Pep Total Protein Albumin Globulin Albumin/Globulin Ratio Venous Blood Potassium 08/08/16 08/08/16 10:45 10:45 WBC RBC Hgb Hct MCV MCH MCHC RDW Plt Count MPV Gran % Lymph % (Auto) [place] % (Auto) Eos % (Auto) Baso % (Auto) Gran # Lymph # [place] # Eos # Baso # PT INR APTT pO2 55 VBG pH 7.34 VBG pCO2 50.0 VBG HCO3 27.0 VBG Total CO2 28.5 H VBG O2 Sat (Calc) 87.7 H VBG Base Excess 0.5 VBG Potassium 5.6 H Sodium 131.0 L 132 Chloride 98.0 93 L Glucose 105 Lactate 1.7 FiO2 21.0 Potassium 5.5 H Carbon Dioxide 26 Anion Gap 19 BUN 45 H Creatinine 5.9 H Est GFR ( Amer) 9 Est GFR (Non-Af Amer) 7 POC Glucose (mg/dL) Random Glucose 99 Calcium 10.0 Phosphorus 3.8 Magnesium 2.1 Total Bilirubin 0.8 AST 21 ALT 19 Alkaline Phosphatase 110 Troponin I 0.10 D NT-Pro-B Natriuret Pep 15498 H Total Protein 7.2 Albumin 3.8 Globulin 3.5 Albumin/Globulin Ratio 1.1 Venous Blood Potassium 5.6 H Assessment & Plan - Assessment and Plan (Free Text) Assessment: Patient is a 66 y/o with PMH of ESRD ( on HD on T, Th, and sat), CAD with stents , and CABG, right BKA, IDDM, antiphospholipid syndrome, DVT, Parkinson disease, depression, seizure disorders, GERD, CHF, and HTN presenting with cough productive with sputum. Plan: 1) SOB accompanied with cough with sputum- likely secondary to acute bronchitis versus HAP consider PE. - will consider ordering V/Q scan if pt is still sob with tachycardia after HD. - + low grade fever and chills, no leukocytosis, + tachycardia - chest x-ray with linear atelectasis - will obtain blood culture, sputum culture, and influenza a and b - will obtain procal - will start cefepime and zithromax - ID consult - will start solumedrol 40 bid - will start duoneb q6 - robittusin for cough 2) ESRD - HD today - continue - Renal diet - continue renagel - Nephro consulted 3)Chronic anemia - h/h stable - will continue to monitor - continue iron sucrose with HD 4) CAD with stents and CABG - continue asa - lipitor, coreg, lisinorpil, 5) htn - continue norvasc, clonidine, hydralazine - SOB 6) IDDM - ISS - accuchecks achs - will continue basal and bolus insulin. 7) Parkinson - continue sinemet 8) Seizure disorder - continue with primidone 9) Depression/anxiety - continue lexapro, sertraline, 10)h/o DVT - INR not therapeutic - will start heparin drip and bridge with coumadin 11) CHF/ arrhythmias - continue amiodorone 12) DVT and Gi prophylaxis: heparin drip/coumadin, and protonix. Patient seen examined, case discussed with Dr Morton. - Date & Time Date: 08/08/16 Time: 16:20 <Alexey Morton - Last Filed: 08/09/16 09:23> Results - Vital Signs Recent Vital Signs: Last Vital Signs Temp 97.9 F 08/09/16 06:00 Pulse 57 L 08/09/16 06:00 Resp 20 08/09/16 06:00 BP 171/63 H 08/09/16 06:00 Pulse Ox 96 08/09/16 06:00 - Labs Result Diagrams: 08/09/16 06:00 08/09/16 06:00 Labs: Laboratory Results - last 24 hr 08/08/16 08/09/16 08/09/16 18:07 01:00 06:00 WBC 4.6 RBC 3.83 Hgb 10.5 L Hct 33.0 L MCV 86.2 MCH 27.4 MCHC 31.8 RDW 18.3 H Plt Count 138 MPV 10.9 Gran % 76.0 H Lymph % (Auto) 20.8 L [place] % (Auto) 2.8 Eos % (Auto) 0.2 L Baso % (Auto) 0.2 Gran # 3.51 Lymph # 1.0 L [place] # 0.1 Eos # 0.0 Baso # 0.01 APTT 104.1 H* Sodium Potassium Chloride Carbon Dioxide Anion Gap BUN Creatinine Est GFR ( Amer) Est GFR (Non-Af Amer) POC Glucose (mg/dL) 365 H Random Glucose Calcium Phosphorus Magnesium Troponin I TSH 3rd Generation 08/09/16 08/09/16 08/09/16 06:00 06:00 07:30 WBC RBC Hgb Hct MCV MCH MCHC RDW Plt Count MPV Gran % Lymph % (Auto) [place] % (Auto) Eos % (Auto) Baso % (Auto) Gran # Lymph # [place] # Eos # Baso # APTT Sodium 133 Potassium 4.6 Chloride 93 L Carbon Dioxide 26 Anion Gap 19 BUN 39 H Creatinine 4.1 H Est GFR ( Amer) 13 Est GFR (Non-Af Amer) 11 POC Glucose (mg/dL) 275 H Random Glucose 263 H Calcium 10.0 Phosphorus 4.2 Magnesium 2.2 Troponin I TSH 3rd Generation 0.81 08/09/16 07:30 WBC RBC Hgb Hct MCV MCH MCHC RDW Plt Count MPV Gran % Lymph % (Auto) [place] % (Auto) Eos % (Auto) Baso % (Auto) Gran # Lymph # [place] # Eos # Baso # APTT Sodium Potassium Chloride Carbon Dioxide Anion Gap BUN Creatinine Est GFR ( Amer) Est GFR (Non-Af Amer) POC Glucose (mg/dL) Random Glucose Calcium Phosphorus Magnesium Troponin I 0.08 TSH 3rd Generation Attending/Attestation - Attestation I have personally seen and examined this patient.: Yes I have fully participated in the care of the patient.: Yes I have reviewed all pertinent clinical information: Yes Notes (Text): 08/09/16 09:23 Medical record note made by the resident after discussion with my direction and input after the patient was personally seen and examined by me. I have reviewed the chart and agree that the record accurately reflects by personal performance of the history, physical exam, data review, and medical decision-making, in the course for the patient. I have also personally directed the plan of care.
[2016-08-08] MEDS ORDERED: Cefepime (Maxipime) 1 g Inj IVPB SCH (16:00)
[2016-08-08] MEDS: Cefepime 1gm in NS 100ml 1 GM/100 ML BAG IVPB SCH (17:13)
[2016-08-08] MEDS: Pantoprazole 40 mg EC Tab PO SCH (17:24)
[2016-08-08] MEDS ORDERED: Nitroglycerin 2% Ointment Foilpak UD TOP STA (17:44)
[2016-08-08] MEDS ORDERED: CLONIDINE HCL 0.3 MG PO SCH (18:00)
[2016-08-08] MEDS: Insulin Lispro 1 UNITS/0.01 ML SC SCH ×2 (19:03→22:20)
[2016-08-08] MEDS: Insulin Detemir 100 units/ml Vial (Levemir) SC SCH (19:03)
[2016-08-08] MEDS: Insulin Lispro (humaLOG) LOW Coverage SC SCH ×2 (19:04→22:13)
[2016-08-08] MEDS: Heparin25000 units/250ml 1/2NS 25,000 UNITS/250 ML BAG IV PRN (19:06)
[2016-08-08] MEDS: Albuterol-Ipratrop 3 mg / 0.5 (3 ml) UD IH SCH (21:09)
[2016-08-08] MEDS ORDERED: Pneumococcal 23-Valent Vaccine IM ONE (21:50)
[2016-08-08] MEDS: MethylPREDNISolone 40 mg Vial IVP SCH (22:21)
[2016-08-09] MEDS: Albuterol-Ipratrop 3 mg / 0.5 (3 ml) UD IH SCH ×4 (02:06→19:42)
[2016-08-09 06:20] LABS: ADD MANUAL DIFF? NO
[2016-08-09 06:33] LABS: MAGNESIUM 2.2 mg/dL (1.7-2.2); PHOSPHOROUS 4.2 mg/dL (2.5-4.5); POTASSIUM 4.6 mmol/L (3.6-5.0)
[2016-08-09 06:35] LABS: BASO # 0.01 K/mm3 (0.0-2.0); BASO % 0.2 % (0.0-3.0); EOS % 0.2 % (1.5-5.0); GRAN # 3.51 (1.4-6.5); LYMPH % 20.8 % (22.0-35.0); MEAN CELL VOLUME 86.2 fL (80.0-105.0); MEAN CORPUSCULAR HEMOGLOBIN 27.4 pg (25.0-35.0); MEAN CORPUSCULAR HGB CONC 31.8 g/dl (31.0-37.0); MEAN PLATELET VOLUME 10.9 fl (7.0-11.0); MONO # 0.1 (0.1-0.6); MONO % 2.8 % (1.0-6.0); PLATELET COUNT 138 10^3/uL (120.0-450.0); RED CELL DISTRIBUTION WIDTH 18.3 % (11.5-14.5); WHITE BLOOD COUNT 4.6 10^3/ul (4.5-11.0)
--- NOTE | 2016-08-09 07:36 | CP.PCM.PN ---
<AngelicaAngelica - Last Filed: 08/09/16 17:25> Subjective - Date & Time of Evaluation Date of Evaluation: 08/09/16 Time of Evaluation: 07:15 - Subjective Subjective: Medicine progress note for Dr Aguirre and Dr Morton. Patient with no acute events overnight. Patient reports she's still feeling congested, coughing with sputum, however states the shortness of breath has improved. Patient admits to chest pain when she coughs. Patient denies fever, or chills, appears less lethargic. Patient denies n/v/d. On tele patient is bradycardic, hr ~ 54 BPM. Objective - Vital Signs/Intake and Output Vital Signs (last 24 hours): Temp Pulse Resp BP Pulse Ox 97.9 F 57 L 20 171/63 H 96 08/09/16 06:00 08/09/16 06:00 08/09/16 06:00 08/09/16 06:00 08/09/16 06:00 Intake and Output: 08/09/16 08/09/16 06:59 18:59 Intake Total 491 Balance 491 - Medications Medications: Current Medications Albuterol/Ipratropium (Duoneb 3 Mg/0.5 Mg (3 Ml) Ud) 3 ml IH Q6 [facility] Last Admin: 08/09/16 07:23 Dose: 3 ml Amiodarone HCl (Cordarone) 200 mg PO DAILY [facility] Amlodipine Besylate (Norvasc) 10 mg PO DAILY [facility] Last Admin: 08/08/16 17:24 Dose: 10 mg Aspirin (Ecotrin) 81 mg PO DAILY [facility] Atorvastatin Calcium (Lipitor) 80 mg PO DIN [facility] Last Admin: 08/08/16 17:23 Dose: 80 mg Azithromycin (Zithromax) 500 mg PO DAILY [facility] PRN Reason: Protocol Carbidopa/Levodopa (Sinemet 10/100) 1 tab PO TID [facility] Last Admin: 08/08/16 19:03 Dose: 1 tab Carvedilol (Coreg) 6.25 mg PO Q12 [facility] Last Admin: 08/08/16 23:00 Dose: 6.25 mg Clonidine HCl (Catapres) 0.3 mg PO BID [facility] Last Admin: 08/08/16 19:02 Dose: 0.3 mg Escitalopram Oxalate (Lexapro) 10 mg PO DAILY [facility] Gabapentin (Neurontin) 100 mg PO BID [facility] PRN Reason: Protocol Last Admin: 08/08/16 19:03 Dose: 100 mg Guaifenesin/Dextromethorphan (Robitussin Dm) 5 ml PO Q4H PRN PRN Reason: Cough Hydralazine HCl (Apresoline) 50 mg PO BID [facility] Last Admin: 08/08/16 19:02 Dose: 50 mg Cefepime HCl (Maxipime 1gm) 1 gm in 100 mls @ 200 mls/hr IVPB Q24H [facility] Last Admin: 08/08/16 17:13 Dose: 200 mls/hr Heparin Sodium/Sodium Chloride (Heparin 05271 Units/250ml 1/2 Normal Saline) 25 ,000 units in 250 mls @ 12.247 mls/hr IV .[id number] PRN; Protocol; 18 UNITS/KG/HR PRN Reason: ADJUST RATE PER PROTOCOL Last Titration: 08/09/16 02:45 Dose: 16 units/kg/hr, 10.886 mls/hr Insulin Detemir (Levemir) 4 unit SC BID [facility] Last Admin: 08/08/16 19:03 Dose: 4 unit Insulin Human Lispro (Humalog) 2 units SC ACHS [facility] Last Admin: 08/08/16 22:20 Dose: 2 units Insulin Human Lispro (Humalog Low) 0 units SC ACHS [facility] PRN Reason: Protocol Last Admin: 08/08/16 22:13 Dose: Not Given Lisinopril (Zestril) 40 mg PO DAILY [facility] Last Admin: 08/08/16 19:02 Dose: 40 mg Methylprednisolone (Solu-Medrol) 40 mg IVP Q12 [facility] Last Admin: 08/08/16 22:21 Dose: 40 mg Pantoprazole Sodium (Protonix Ec Tab) 40 mg PO DAILY [facility] Last Admin: 08/08/16 17:24 Dose: 40 mg Primidone (Mysoline) 50 mg PO DAILY [facility] Sertraline HCl (Zoloft) 25 mg PO DAILY [facility] Sertraline HCl (Zoloft) 25 mg PO HS [facility] Last Admin: 08/08/16 22:00 Dose: 25 mg Sevelamer HCl (Renagel) 800 mg PO TID [facility] Last Admin: 08/08/16 19:02 Dose: 800 mg Warfarin Sodium (Coumadin) 10 mg PO 1800 [facility] PRN Reason: Protocol Zinc Sulfate (Zinc Sulfate 220 Mg Cap) 220 mg PO DAILY [facility] - Labs Labs: 08/09/16 06:00 08/09/16 06:00 PT 11.6 Seconds (9.9-11.8) 08/08/16 10:45 INR 1.07 (0.93-1.08) 08/08/16 10:45 APTT 104.1 Seconds (23.7-30.8) H* 08/09/16 01:00 - Constitutional Appears: No Acute Distress, Chronically Ill - Head Exam Head Exam: ATRAUMATIC, NORMAL INSPECTION, NORMOCEPHALIC - Eye Exam Eye Exam: EOMI, Normal appearance, PERRL. absent: Scleral icterus - ENT Exam ENT Exam: Mucous Membranes Moist - Neck Exam Neck Exam: Normal Inspection - Respiratory Exam Respiratory Exam: Rales (at the bases), Wheezes (diffuse. ), NORMAL BREATHING PATTERN. absent: Decreased Breath Sounds, Respiratory Distress - Cardiovascular Exam Cardiovascular Exam: REGULAR RHYTHM, RRR, +S1, +S2 - GI/Abdominal Exam GI & Abdominal Exam: Soft, Normal Bowel Sounds. absent: Distended, Firm, Guarding, Rigid, Tenderness - Extremities Exam Extremities Exam: Pedal Edema - Back Exam Back Exam: NORMAL INSPECTION - Neurological Exam Neurological Exam: Alert, Awake, Oriented x3 - Psychiatric Exam Psychiatric exam: Normal Affect, Normal Mood - Skin Skin Exam: Normal Color, Warm (Left heel with ~2 cm ulceration, no drainage, no erythema) Additional comments: left heel with ~2 cm ulceration, no drainage, + granulation tissue. Left upper extremities with old avf, no thrill or bruit. right lower extremities with post amputation stump. Assessment and Plan - Assessment and Plan (Free Text) Assessment: Patient is a 66 y/o with PMH of ESRD ( on HD on T, Th, and sat), CAD with stents , and CABG, right BKA, IDDM, antiphospholipid syndrome, DVT, Parkinson disease, depression, seizure disorders, GERD, CHF, and HTN admitted with bronchitis/hap Plan: 1) HAP versus Bronchitis - fever, tachycardia and leukocytosis resolved - chest x-ray with linear atelectasis - Pain culture, and procal pending - continue cefepime, will change zithromax to doxycicline due to qtc prolongation. - ID following - will increase solumedrol to 40 q8 and duoneb q6 - robittusin for cough - Pulm consult 2) ESRD - HD 08/08 - Renal diet - continue renagel - Nephro following 3)Chronic anemia - h/h stable - will continue to monitor - continue iron sucrose with HD 4) CAD with stents and CABG - continue asa - lipitor, coreg, lisinorpil, - cardiology consult 5) htn - continue norvasc, clonidine, hydralazine 6) IDDM - ISS - accuchecks achs - will continue basal and bolus insulin. 7) Parkinson - continue sinemet 8) Seizure disorder - continue with primidone 9) Depression/anxiety - continue lexapro, sertraline, 10)h/o DVT - INR not therapeutic - will continue heparin drip while bridging with coumadin 11) CHF/ arrhythmias - continue amiodorone 12) Left heel ulcer- podiatry consult 13) DVT and Gi prophylaxis: heparin drip/coumadin, and protonix. Patient seen examined, case discussed with the attending. <Wm Aguirre - Last Filed: 08/30/16 08:12> Objective - Vital Signs/Intake and Output Vital Signs (last 24 hours): Temp Pulse Resp BP Pulse Ox 98.4 F 71 20 174/66 H 98 08/14/16 10:00 08/14/16 10:12 08/14/16 10:00 08/14/16 10:12 08/14/16 12:37 - Labs Labs: 08/14/16 05:30 08/14/16 05:30 PT 54.8 Seconds (9.9-11.8) H* 08/14/16 05:30 INR 5.07 (0.93-1.08) H* 08/14/16 05:30 APTT 45.3 Seconds (23.7-30.8) H 08/12/16 08:16 Attending/Attestation - Attestation I have personally seen and examined this patient.: Yes I have fully participated in the care of the patient.: Yes I have reviewed all pertinent clinical information, including history, physical exam and plan: Yes Notes (Text): 08/30/16 08:12 Medical record note made by the resident after discussion with my direction and input after the patient was personally seen and examined by me. I have reviewed the chart and agree that the record reflects my personal performance of history, physical, data review and course for the patient that I have planned.
[2016-08-09] MEDS: Insulin Lispro (humaLOG) LOW Coverage SC SCH ×4 (08:01→21:40)
[2016-08-09] MEDS: Insulin Lispro 1 UNITS/0.01 ML SC SCH ×4 (08:04→21:39)
[2016-08-09] MEDS: guaiFENesin DM 100 mg-10 mg/5 ml UD PO PRN (08:04)
[2016-08-09] MEDS: Insulin Detemir 100 units/ml Vial (Levemir) SC SCH ×2 (09:46→18:09)
[2016-08-09] MEDS: MethylPREDNISolone 40 mg Vial IVP SCH ×3 (09:47→21:40)
[2016-08-09] MEDS: Pantoprazole 40 mg EC Tab PO SCH (09:51)
[2016-08-09 09:57] LABS: PARTIAL THROMBOPLASTIN TIME 104.1 Seconds (23.7-30.8)
[2016-08-09] MEDS ORDERED: AMIODARONE HCL 200 MG PO SCH (10:00)
--- NOTE | 2016-08-09 10:51 | CON ---
DATE: 08/09/2016 REFERRING PHYSICIAN: Dr. Aguirre REASON FOR CONSULTATION: End-stage renal disease on hemodialysis. CHIEF COMPLAINT AND HISTORY OF PRESENT ILLNESS: This is a 66-year-old female who is coming in with a past medical history of end-stage renal disease, coronary artery disease with CABG, Parkinson's, dep ression, hypertension. The patient was having cough, congestion. She says she was more short of odalys ath. She had not gone for her dialysis treatment yesterday. [facility] She says that she was congested. She was coughing up discolored sputum. She says the coughing has gotten worse and she was having more shortness of breath. She denies any fever s or chills. No nausea, no vomiting, no weakness in the arms or the legs. She was dialyzed yesterda y and she said she did feel better. No issues during dialysis. She does have difficulty walking bec ause of the BKA that she has had on the right. REVIEW OF SYMPTOMS: All others are within normal limits except as mentioned. ALLERGIES: CIPRO, CLARITHROMYCIN, PEPPER. HOME MEDICATIONS: Are the following: Insulin, aspirin, Coreg, Catapres, Protonix, primidone, Lipito r, Neurontin, Levemir, Zestril, Zoloft, Renagel, Coumadin, zinc, hydralazine. PAST MEDICAL HISTORY: 1. End-stage renal disease, on hemodialysis. 2. DVT, on anticoagulation with Coumadin. 3. Coronary artery disease with stenting. 4. Hypertension. 5. Parkinson's. 6. History of seizures. 7. Diabetes type 2. 8. Diverticulosis. 9. Peripheral arterial disease. 10. Gastroesophageal reflux disease. 11. Antiphospholipid antibody, on Coumadin. 12. Thromboembolism of the liver and kidney, on anticoagulation. 13. Left arm fistula. 14. Left renal cyst. PAST SURGICAL HISTORY: 1. Left femoral bypass. 2. Right below knee amputation. 3. CABG. 4. Left toe amputation. 5. Bilateral cataracts. SOCIAL HISTORY: She lives with her daughter. The patient is a . She denies smoking. FAMILY HISTORY: Noncontributory. PHYSICAL EXAMINATION: VITAL SIGNS: Temperature is 97.9, the pulse 57, the blood pressure is 171/63, respirations 20, O2 sa turation 96%. GENERAL: The patient lying in bed, flat, and in no apparent distress. HEAD AND NECK EXAM: Atraumatic, normocephalic. Conjunctivae are pink. Throat clear and mouth with moist mucosa. Oropharynx benign. EYES: Extraocular movements are intact. PERRLA. NECK: Supple. No JVD, thyromegaly, or adenopathy. No bruits. HEART: S1 and S2 regular rate and rhythm. No murmurs, rubs, or gallops. LUNGS: Clear to auscultation bilaterally. No wheezing rales or rhonchi appreciated. No retraction s on exam. ABDOMEN: Soft, nontender, nondistended. Bowel sounds are positive in all quadrants. No rebound. No hepatosplenomegaly. EXTREMITIES: Right BKA. Left arm with an AV fistula with good thrill and bruit. No cyanosis, clu bbing, or edema. NEUROLOGIC: Resting tremor, right greater than left hand. No facial asymmetry, tongue is midline, no uvula deviation. Power is 5/5 in upper extremity and 5/5 in lower extremity. Sensation is normal in upper extremity and lower extremity. PSYCHIATRIC: Awake, alert, oriented x 3. No anxiety or depression symptoms. Good insight. Izabella l affect. GENITOURINARY: No CVA tenderness VASCULAR: 2+ pulses in carotid and pedal pulses. SKIN: No erythema or abnormal nodules noted. SPINE: Normal curvature. LYMPHADENOPATHY: No anterior cervical or posterior cervical adenopathy. No inguinal adenopathy. LABORATORIES: White count of 5.4, hemoglobin 10.3, platelet count is 146. Chemistry shows sodium 13 2, potassium is 5.5, creatinine is 5.9. ProBNP is 69,600. TSH is 0.8. ABG done shows a pH of 7.34 with a pCO2 of 50, PaO2 is 55. An EKG done shows sinus rhythm at 60, there is LVH, QTc is 440. A chest x-ray done shows probable linear atelectasis at the base. ASSESSMENT: 1. End-stage renal disease, on hemodialysis. 2. Antiphospholipid antibodies, on Coumadin. 3. Coronary artery disease. 4. Peripheral arterial disease. 5. Parkinson's. 6. Anxiety. 7. Left arm arteriovenous fistula. 8. Secondary hyperparathyroidism. 9. Diabetes type 2. 10. Gastroesophageal reflux disease. 11. Right below knee amputation. 12. Chronic anemia. PLAN: The patient is currently comfortable. She was dialyzed yesterday. The patient is going to co ntinue dialysis. She has resistant hypertension. She is on clonidine for her blood pressure. She i s on carvedilol. She is going to continue with amlodipine. She is on lisinopril. I will increase h er lisinopril to 80 mg. She does not allow for fluid removal to help with her blood pressure managem ent. This has been an ongoing issue. She had compliance issues as well. Her INR is subtherapeutic, even though she is on Coumadin. The patient is on Lipitor for dyslipidemia. She has been started o n IV antibiotics. She is receiving Neurontin for neuropathy. She is going to be on Renagel for her secondary hyperparathyroidism. She is on Zoloft. Currently, she is on a renal diet. This will be c ontinued. Thank you for allowing me to participate in the care of your patient. Bebo Eller MD cc: [id number] TT: 08/09/2016 10:50:40 Confirmation # [id number] Dictation # [id number] en
[2016-08-09 11:08] LABS: INR 1.15 (0.93-1.08)
[2016-08-09] MEDS ORDERED: Collagenase 250 Units/gm Ointment(30 gm) TOP SCH (11:45)
--- NOTE | 2016-08-09 12:25 | CP.PCM.CON ---
History of Present Illness - History of Present Illness History of Present Illness: 66 year old female with PMHx of ESRD ( on HD)CAD with stents, and CABG, right BKA, IDDM, antiphospholipid syndrome, DVT, Parkinson disease, depression, seizure disorders, GERD, CHF, and HTN seen at bedside regarding left heel ulceration. She states she is here for pneumonia. Patient denies any pain in her feet, states at home she has been wearing her offloading boots. She denies n /f/v/c/d. Past Patient History - Infectious Disease Hx of Infectious Diseases: None - Tetanus Immunizations Tetanus Immunization: Unknown - Past Medical History & Family History Past Medical History?: Yes - Past Social History Smoking Status: Former Smoker - CARDIAC Hx Cardiac Disorders: Yes (cad, dvt) Hx Cardia Arrhythmia: Yes (a fib) Hx Congestive Heart Failure: Yes Hx Hypercholesterolemia: Yes Hx Hypertension: Yes Hx Peripheral Edema: Yes (lle +1 edema) Hx Peripheral Vascular Disease: Yes Other/Comment: vascular sx, arteriovenous shunt, circulatory problems, b/l extremity pain - PULMONARY Hx Pneumonia: Yes - NEUROLOGICAL Hx Neurological Disorder: Yes (syncope) Hx Dizziness: Yes Hx Parkinson's Disease: Yes (hand tremors) Hx Seizures: Yes (x1) - HEENT Hx HEENT Problems: Yes ([place] l ear, glasses) Hx Cataracts: Yes (BILATERAL CATARACT SURGERY) Hx Deafness: No (denies) - RENAL Date of Last Dialysis Treatment: 08/08/16 - ENDOCRINE/METABOLIC Hx Diabetes Mellitus Type 2: Yes - HEMATOLOGICAL/ONCOLOGICAL Hx Blood Disorders: Yes Hx Anemia: Yes (blood transfusions) - INTEGUMENTARY Hx Dermatological Problems: Yes (RIGHT BKA,LEFT GREAT TOE AMPUTATION) Other/Comment: left heel ulcer red dry flakey, mid chest scar red, large scar inner side left knee, 1cm x 1cm dry scab left knee, lle discolored dry skin and swelling - MUSCULOSKELETAL/RHEUMATOLOGICAL Hx Falls: Yes (past) - GASTROINTESTINAL Hx Gastrointestinal Disorders: Yes (hx c dif/diverticulitis/ reflux) Hx Diverticulitis: Yes Hx Gastroesophageal Reflux: Yes Hx Pancreatitis: Yes Other/Comment: hx colitis had diarrhea x 1 yr and 70 lb weight loss - GENITOURINARY/GYNECOLOGICAL Hx Genitourinary Disorders: No - PSYCHIATRIC Hx Substance Use: No - SURGICAL HISTORY Hx Amputation: Yes (hx gangrene amputation of left great toe, right bka) Hx Cardiac Catheterization: Yes Hx Coronary Stent: Yes Hx Musculoskeletal Surgery: Yes (right BKA) Hx Orthopedic Surgery: Yes (left knee) Other/Comment: LEFT FEMORAL BYPASSl meniscus/ r bka amputation due to ischemia and pain, c section x 2, left upper arm av fistula failed, has right chest wall udall, left great toe amputated due to gangrene, c section - ANESTHESIA Hx Anesthesia: Yes Hx Anesthesia Reactions: No Hx Malignant Hyperthermia: No Meds Allergies/Adverse Reactions: Allergies Allergy/AdvReac Type Severity Reaction Status Date / Time ciprofloxacin Allergy SWELLING Verified 07/24/16 04:09 clarithromycin [From Biaxin] Allergy SWELLING Verified 07/24/16 04:09 pepper Allergy SWELLING Verified 07/24/16 04:09 - Medications Medications: Current Medications Albuterol/Ipratropium (Duoneb 3 Mg/0.5 Mg (3 Ml) Ud) 3 ml IH Q6 [facility] Last Admin: 08/09/16 07:23 Dose: 3 ml Amiodarone HCl (Cordarone) 200 mg PO DAILY [facility] Last Admin: 08/09/16 09:51 Dose: 200 mg Amlodipine Besylate (Norvasc) 10 mg PO DAILY [facility] Last Admin: 08/09/16 09:49 Dose: 10 mg Aspirin (Ecotrin) 81 mg PO DAILY [facility] Last Admin: 08/09/16 09:50 Dose: 81 mg Atorvastatin Calcium (Lipitor) 80 mg PO DIN [facility] Last Admin: 08/08/16 17:23 Dose: 80 mg Carbidopa/Levodopa (Sinemet 10/100) 1 tab PO TID [facility] Last Admin: 08/09/16 09:49 Dose: 1 tab Carvedilol (Coreg) 6.25 mg PO Q12 [facility] Last Admin: 08/09/16 09:49 Dose: 6.25 mg Clonidine HCl (Catapres) 0.3 mg PO BID [facility] Last Admin: 08/09/16 09:51 Dose: 0.3 mg Collagenase (Santyl) 0 gm TOP DAILY [facility] Doxycycline Hyclate (Doryx) 100 mg PO Q12 [facility] PRN Reason: Protocol Escitalopram Oxalate (Lexapro) 10 mg PO DAILY [facility] Last Admin: 08/09/16 09:50 Dose: 10 mg Gabapentin (Neurontin) 100 mg PO BID [facility] PRN Reason: Protocol Last Admin: 08/09/16 09:50 Dose: 100 mg Guaifenesin/Dextromethorphan (Robitussin Dm) 5 ml PO Q4H PRN PRN Reason: Cough Last Admin: 08/09/16 08:04 Dose: 5 ml Hydralazine HCl (Apresoline) 50 mg PO BID [facility] Last Admin: 08/09/16 09:50 Dose: 50 mg Cefepime HCl (Maxipime 1gm) 1 gm in 100 mls @ 200 mls/hr IVPB Q24H [facility] Last Admin: 08/08/16 17:13 Dose: 200 mls/hr Heparin Sodium/Sodium Chloride (Heparin 77326 Units/250ml 1/2 Normal Saline) 25 ,000 units in 250 mls @ 12.247 mls/hr IV .[id number] PRN; Protocol; 18 UNITS/KG/HR PRN Reason: ADJUST RATE PER PROTOCOL Last Titration: 08/09/16 02:45 Dose: 16 units/kg/hr, 10.886 mls/hr Insulin Detemir (Levemir) 4 unit SC BID [facility] Last Admin: 08/09/16 09:46 Dose: 4 unit Insulin Human Lispro (Humalog) 2 units SC ACHS [facility] Last Admin: 08/09/16 08:04 Dose: 2 units Insulin Human Lispro (Humalog Low) 0 units SC ACHS [facility] PRN Reason: Protocol Last Admin: 08/09/16 08:01 Dose: Not Given Lisinopril (Zestril) 80 mg PO DAILY [facility] Methylprednisolone (Solu-Medrol) 40 mg IVP Q8 [facility] Pantoprazole Sodium (Protonix Ec Tab) 40 mg PO DAILY [facility] Last Admin: 08/09/16 09:51 Dose: 40 mg Primidone (Mysoline) 50 mg PO DAILY [facility] Last Admin: 08/09/16 09:50 Dose: 50 mg Sertraline HCl (Zoloft) 25 mg PO DAILY [facility] Last Admin: 08/09/16 09:49 Dose: 25 mg Sertraline HCl (Zoloft) 25 mg PO HS [facility] Last Admin: 08/08/16 22:00 Dose: 25 mg Sevelamer HCl (Renagel) 800 mg PO TID [facility] Last Admin: 08/09/16 09:50 Dose: 800 mg Warfarin Sodium (Coumadin) 10 mg PO 1800 [facility] PRN Reason: Protocol Zinc Sulfate (Zinc Sulfate 220 Mg Cap) 220 mg PO DAILY [facility] Last Admin: 08/09/16 09:57 Dose: 220 mg Physical Exam - Constitutional Appears: No Acute Distress, Chronically Ill - Extremities Exam Additional comments: Lower extremity focused exam: Right: Below knee amputation noted Left: vasc: Non-palpable DP and PT pulses, CFT < 4 sec to all digits, TG wnl, no edema noted neuro: Gross sensation diminished derm: Superficial ulceration noted to heel no drainage, no purulence, no malodor , no ascending cellulitis, no fluctuance, no probe to bone noted ortho: Mild pain on palpation to heel - Neurological Exam Neurological exam: Alert - Psychiatric Exam Psychiatric exam: Normal Mood Results - Vital Signs Recent Vital Signs: Last Vital Signs Temp 97.9 F 08/09/16 06:00 Pulse 59 L 08/09/16 09:51 Resp 20 08/09/16 06:00 BP 201/76 H 08/09/16 09:51 Pulse Ox 96 08/09/16 06:00 - Labs Result Diagrams: 08/09/16 06:00 08/09/16 06:00 Labs: Laboratory Results - last 24 hr 08/08/16 08/09/16 08/09/16 18:07 01:00 06:00 WBC 4.6 RBC 3.83 Hgb 10.5 L Hct 33.0 L MCV 86.2 MCH 27.4 MCHC 31.8 RDW 18.3 H Plt Count 138 MPV 10.9 Gran % 76.0 H Lymph % (Auto) 20.8 L [place] % (Auto) 2.8 Eos % (Auto) 0.2 L Baso % (Auto) 0.2 Gran # 3.51 Lymph # 1.0 L [place] # 0.1 Eos # 0.0 Baso # 0.01 PT INR APTT 104.1 H* Sodium Potassium Chloride Carbon Dioxide Anion Gap BUN Creatinine Est GFR ( Amer) Est GFR (Non-Af Amer) POC Glucose (mg/dL) 365 H Random Glucose Calcium Phosphorus Magnesium Troponin I TSH 3rd Generation 08/09/16 08/09/16 08/09/16 06:00 06:00 07:30 WBC RBC Hgb Hct MCV MCH MCHC RDW Plt Count MPV Gran % Lymph % (Auto) [place] % (Auto) Eos % (Auto) Baso % (Auto) Gran # Lymph # [place] # Eos # Baso # PT INR APTT Sodium 133 Potassium 4.6 Chloride 93 L Carbon Dioxide 26 Anion Gap 19 BUN 39 H Creatinine 4.1 H Est GFR ( Amer) 13 Est GFR (Non-Af Amer) 11 POC Glucose (mg/dL) 275 H Random Glucose 263 H Calcium 10.0 Phosphorus 4.2 Magnesium 2.2 Troponin I TSH 3rd Generation 0.81 08/09/16 08/09/16 07:30 09:00 WBC RBC Hgb Hct MCV MCH MCHC RDW Plt Count MPV Gran % Lymph % (Auto) [place] % (Auto) Eos % (Auto) Baso % (Auto) Gran # Lymph # [place] # Eos # Baso # PT 12.4 H INR 1.15 H APTT 104.1 H* Sodium Potassium Chloride Carbon Dioxide Anion Gap BUN Creatinine Est GFR ( Amer) Est GFR (Non-Af Amer) POC Glucose (mg/dL) Random Glucose Calcium Phosphorus Magnesium Troponin I 0.08 TSH 3rd Generation Assessment & Plan - Assessment and Plan (Free Text) Assessment: 66 year old female seen for diabetic left heel ulceration Plan: Patient examined and evaluated Discussed with attending Chart, labs and vitals reviewed: afebrile, no leukocytosis Left heel cleansed with normal sterile saline Left heel dressed with optifoam Offloading boots ordered Patient to continue wearing the multipodus boots at all times in bed Podiatry will continue to monitor while patient remains in house
--- NOTE | 2016-08-09 14:18 | CT ---
PROCEDURE: CT Chest without contrast HISTORY: r/o infiltrate COMPARISON: None. TECHNIQUE: Contiguous axial images were obtained through the chest without intravenous contrast enhancement. Sagittal and coronal reconstructions were performed. Radiation dose (DLP): 488.81 mGy-cm. This CT exam was performed using one or more of the following dose reduction techniques: Automated exposure control, adjustment of the mA and/or kV according to patient size, and/or use of iterative reconstruction technique. FINDINGS: LUNGS: There is infiltrate in the lingular segment of the left upper lobe. There is multifocal patchy opacity bilaterally likely infectious or inflammatory etiology. This is seen to greatest extent in the right middle lobe and superior segment left lower lobe, with subpleural opacities both upper lobes and the anterior basal right lower lobe. There is subsegmental atelectasis in the right lower lobe and linear scar/ atelectasis in the left lower lobe. MEDIASTINUM: Unremarkable thoracic aorta. No aneurysm. Mild cardiomegaly. CABG. Right central venous dialysis catheter. Main pulmonary artery unremarkable. No vascular congestion. [place] nonspecific mediastinal lymph nodes. PLEURA: No pleural fluid. No pneumothorax. BONES: No fracture. No destructive lesion. UPPER ABDOMEN: Left upper pole renal cortical cyst, 3 cm, with curvilinear mural calcification, unchanged. OTHER FINDINGS: None. IMPRESSION: Freddy lingular infiltrate. Multifocal patchy opacities bilaterally likely infectious or inflammatory etiology as well. No pleural effusion. Additional findings as above.
--- NOTE | 2016-08-09 14:38 | RAD ---
PROCEDURE: Left Foot Radiographs. HISTORY: r/o heel osteo of left heel COMPARISON: 02/04/2013 FINDINGS: BONES: There has been amputation of the 1st toe. The 1st metatarsal is unremarkable. The remainder the foot is unremarkable JOINTS: Normal. SOFT TISSUES: Normal. OTHER FINDINGS: None. IMPRESSION: Amputation of the 1st toe. The study is otherwise unremarkable
[2016-08-09] MEDS: Cefepime 1gm in NS 100ml 1 GM/100 ML BAG IVPB SCH (18:11)
--- NOTE | 2016-08-09 19:45 | CON ---
DATE: 08/09/2016 HISTORY OF PRESENT ILLNESS: The patient is a 66-year-old female who was brought to the hospital with complaints of productive cough for 2 days and shortness of breath. The patient was found to have pneumonia with multifocal opacities bilaterally. The patient has a long history of psychiatric problems. She has a history of recurrent depression. She has a history in the past of visual hallucinations. She has had a history of severe anxiety. Currently, the patient complains of being anxious. She is sleeping well. Appetite is poor. She is quite worried about her daughter, who suffers from carcinoma of the breast. PAST MEDICAL HISTORY: Also includes a history of end-stage renal disease. She is on hemodialysis. She has a history of chronic anemia, coronary artery disease with history of stents and CABG, history of hypertension, insulin- dependent diabetes mellitus, Parkinson's disease, also essential tremor. The patient has a history of congestive heart failure. She has had cardiac arrhythmias in the past. She is on deep vein thrombosis and GI prophylaxis. BKA. PERSONAL HISTORY: She has been a for the past 2 years. She lives in her apartment with her daughter. She also has a son, who is a [employer]. The patient also has a sister with bipolar disorder. CURRENT LABORATORY DATA: Includes a white count of 4600, hemoglobin of 10.5, platelet count 138,000. Her metabolic profile shows sodium 133, potassium 4.6, chloride 93, CO2 26, anion gap 16, BUN 39, creatinine 4.1, estimated GFR of 11. Random glucose most recently of 275. The patient had a CT scan on the chest, which revealed navi lingular infiltrate with multifocal patchy opacities bilaterally. The patient also has a coronary artery bypass graft, right central venous dialysis catheter. The patient had an MRI of the brain in June of this year, which was essentially unremarkable without infarcts or microvascular disease of atrophy. The patient had an electrocardiogram, which showed normal sinus rhythm with left ventricular hypertrophy, ST-T wave changes and heart rate of 60, QTC interval 440. CURRENT MEDICATIONS: Include Apresoline, Catapres, Cordarone, Coreg, Coumadin, , Ecotrin, heparin, human Lispro insulin, Levemir. She is on Lexapro 10 mg daily, Lipitor 80 mg daily, Maxipime IV, primidone 50 mg daily, Neurontin 100 mg b.i.d., amlodipine 10 mg daily, Protonix, Renagel, Santyl, Sinemet 10/ 100 one tab t.i.d. He has had 125 mg of IV Solu-Medrol. She is now on 40 mg IVP q. 8 hours of Solu-Medrol, Zestril. The patient also has been on Zoloft 25 mg b.i.d. REVIEW OF SYSTEMS: She complains of some shortness of breath. She complains of anxiety, nervousness, worry. Rest of 12 point review non-contributory. PHYSICAL EXAMINATION: VITAL SIGNS: The patient's blood pressure is 189/72, respirations 18 per minute. She is afebrile, pulse rate is 54. O2 saturation is 96% on 2 liter nasal cannula. PSYCHIATRIC: Her mental status: She is awake. She is oriented to place. She understands that she has pneumonia. She is oriented to time. Recognizes me from past visits. The patient denies hallucinations, paranoia, depression. She says her appetite is poor. She says she is sleeping well. She is very anxious and worried about her daughter, who has a malignancy. IMPRESSION: The patient has a history of recurrent depression, severe generalized anxiety ongoing. She has nosocomial pneumonia. She has a history of end-stage renal disease, on hemodialysis. She has had past myocardial infarction. She has severe coronary artery disease. She has coronary artery stents. She has had a cardiac bypass graft. She has insulin-dependent diabetes mellitus. She has a history of [id number]-[id number] amputation. She has a history of hypertension, peripheral vascular disease, Parkinson's disease superimposed on essential tremor. left BK amputation. PLAN: I will order 0.25 mg of alprazolam b.i.d. for severe anxiety. I will also discontinue Zoloft 25 mg b.i.d. because she is also on Lexapro 10 mg daily ; both are selective serotonin reuptake inhibitors. We will monitor her mental status. Discussed with nursing staff. This patient is on IV steroids and is susceptible to a psychotic reaction due to steroids and a previous history of such. Neil Wiggins MD cc: [phone] TT: 08/09/2016 19:44:50 Confirmation # [id number] Dictation # [id number] ln MTDD
[2016-08-09] MEDS: Heparin25000 units/250ml 1/2NS 25,000 UNITS/250 ML BAG IV PRN ×2 (20:15→21:37)
[2016-08-10] MEDS: Albuterol-Ipratrop 3 mg / 0.5 (3 ml) UD IH SCH ×6 (01:04→23:26)
[2016-08-10] MEDS: MethylPREDNISolone 40 mg Vial IVP SCH ×3 (05:44→22:02)
--- NOTE | 2016-08-10 06:59 | CP.PCM.PN ---
<Angelica Dominguez - Last Filed: 08/10/16 11:08> Subjective - Date & Time of Evaluation Date of Evaluation: 08/10/16 Time of Evaluation: 07:50 - Subjective Subjective: Medicine progress note for Dr Aguirre and Dr Morton service Patient seen, and examined at bed side. Patient with no acute events overnight. patient report the cough has not improved, the sputum is no longer yellowish. Patient admits to wheezing, and congestion. Patient denies fever, chills, n/v/ d. Tele monitor with bradycardia HR 40s-50s. Objective - Vital Signs/Intake and Output Vital Signs (last 24 hours): Temp Pulse Resp BP Pulse Ox 97.4 F L 51 L 18 166/75 H 97 08/10/16 05:49 08/10/16 05:49 08/10/16 05:49 08/10/16 05:49 08/10/16 05:49 Intake and Output: 08/09/16 08/10/16 18:59 06:59 Intake Total 179 630 Output Total 500 Balance 179 130 - Medications Medications: Current Medications Albuterol/Ipratropium (Duoneb 3 Mg/0.5 Mg (3 Ml) Ud) 3 ml IH Q6 [facility] Last Admin: 08/10/16 01:04 Dose: 3 ml Alprazolam (Xanax) 0.25 mg PO BID [facility] Stop: 08/16/16 18:01 Last Admin: 08/09/16 18:13 Dose: 0.25 mg Amiodarone HCl (Cordarone) 200 mg PO DAILY [facility] Last Admin: 08/09/16 09:51 Dose: 200 mg Amlodipine Besylate (Norvasc) 10 mg PO DAILY [facility] Last Admin: 08/09/16 09:49 Dose: 10 mg Aspirin (Ecotrin) 81 mg PO DAILY [facility] Last Admin: 08/09/16 09:50 Dose: 81 mg Atorvastatin Calcium (Lipitor) 80 mg PO DIN [facility] Last Admin: 08/09/16 18:09 Dose: 80 mg Carbidopa/Levodopa (Sinemet 10/100) 1 tab PO TID [facility] Last Admin: 08/09/16 18:16 Dose: 1 tab Carvedilol (Coreg) 6.25 mg PO Q12 [facility] Last Admin: 08/09/16 21:51 Dose: Not Given Clonidine HCl (Catapres) 0.3 mg PO BID [facility] Last Admin: 08/09/16 18:05 Dose: 0.3 mg Collagenase (Santyl) 0 gm TOP DAILY [facility] Last Admin: 08/09/16 20:14 Dose: 1 oin Doxycycline Hyclate (Doryx) 100 mg PO Q12 [facility] PRN Reason: Protocol Escitalopram Oxalate (Lexapro) 10 mg PO DAILY [facility] Last Admin: 08/09/16 09:50 Dose: 10 mg Gabapentin (Neurontin) 100 mg PO BID [facility] PRN Reason: Protocol Last Admin: 08/09/16 18:12 Dose: 100 mg Guaifenesin/Dextromethorphan (Robitussin Dm) 5 ml PO Q4H [facility] PRN Reason: Cough Last Admin: 08/09/16 08:04 Dose: 5 ml Hydralazine HCl (Apresoline) 50 mg PO BID [facility] Last Admin: 08/09/16 18:05 Dose: 50 mg Cefepime HCl (Maxipime 1gm) 1 gm in 100 mls @ 200 mls/hr IVPB Q24H [facility] Last Admin: 08/09/16 18:11 Dose: 200 mls/hr Heparin Sodium/Sodium Chloride (Heparin 07907 Units/250ml 1/2 Normal Saline) 25 ,000 units in 250 mls @ 12.247 mls/hr IV .[id number] PRN; Protocol; 18 UNITS/KG/HR PRN Reason: ADJUST RATE PER PROTOCOL Last Titration: 08/09/16 22:49 Dose: 16.55 units/kg/hr, 11.26 mls/hr Insulin Detemir (Levemir) 4 unit SC BID [facility] Last Admin: 08/09/16 18:09 Dose: 4 unit Insulin Human Lispro (Humalog) 2 units SC ACHS [facility] Last Admin: 08/09/16 21:39 Dose: 2 units Insulin Human Lispro (Humalog Low) 0 units SC ACHS [facility] Lisinopril (Zestril) 80 mg PO DAILY [facility] Methylprednisolone (Solu-Medrol) 40 mg IVP Q12 [facility] Pantoprazole Sodium (Protonix Ec Tab) 40 mg PO DAILY [facility] Last Admin: 08/09/16 09:51 Dose: 40 mg Primidone (Mysoline) 50 mg PO DAILY [facility] Last Admin: 08/09/16 09:50 Dose: 50 mg Sevelamer HCl (Renagel) 800 mg PO TID [facility] Last Admin: 08/09/16 18:12 Dose: 800 mg Warfarin Sodium (Coumadin) 10 mg PO 1800 [facility] PRN Reason: Protocol Last Admin: 08/09/16 18:06 Dose: 10 mg Zinc Sulfate (Zinc Sulfate 220 Mg Cap) 220 mg PO DAILY [facility] Last Admin: 08/09/16 09:57 Dose: 220 mg - Labs Labs: 08/09/16 06:00 08/09/16 06:00 PT 12.4 Seconds (9.9-11.8) H 08/09/16 09:00 INR 1.15 (0.93-1.08) H 08/09/16 09:00 APTT 36.0 Seconds (23.7-30.8) H 08/09/16 21:25 - Constitutional Appears: No Acute Distress, Chronically Ill - Head Exam Head Exam: ATRAUMATIC, NORMAL INSPECTION, NORMOCEPHALIC - Eye Exam Eye Exam: Normal appearance, PERRL. absent: Scleral icterus - ENT Exam ENT Exam: Mucous Membranes Moist - Neck Exam Neck Exam: Normal Inspection - Respiratory Exam Respiratory Exam: Rhonchi, Wheezes (diffusely ), NORMAL BREATHING PATTERN. absent: Decreased Breath Sounds, Rales, Respiratory Distress, Stridor - Cardiovascular Exam Cardiovascular Exam: Bradycardia, REGULAR RHYTHM, +S1, +S2. absent: Diastolic murmur, JVD - GI/Abdominal Exam GI & Abdominal Exam: Soft, Normal Bowel Sounds. absent: Distended, Guarding, Rigid, Tenderness - Extremities Exam Extremities Exam: Pedal Edema - Back Exam Back Exam: NORMAL INSPECTION - Neurological Exam Neurological Exam: Alert, Awake, Oriented x3 - Psychiatric Exam Psychiatric exam: Normal Affect, Normal Mood - Skin Skin Exam: Dry, Warm Additional comments: left heel with ~2 cm ulceration, no drainage, + granulation tissue. Left upper extremities with old avf, no thrill or bruit. right lower extremities with post amputation stump Assessment and Plan - Assessment and Plan (Free Text) Assessment: Patient is a 66 y/o with PMH of ESRD ( on HD on T, Th, and sat), CAD with stents , and CABG, right BKA, IDDM, antiphospholipid syndrome, DVT, Parkinson disease, depression, seizure disorders, GERD, CHF, and HTN admitted with bronchitis/hap Plan: 1) Acute Bronchitis r/o HAP - bcx with no growth after 24 hrs - CT of the chest revealed navi linear infiltrate and multifocal patchy opacities bilaterally. - Procal low, ESR and CRP high, will follow up with ID, and consider deescalating abx - will continue solumedrol to 40 q8 and duoneb increased to q4 - robittusin for cough - Pulm consult 2) ESRD - HD 08/08 - On renagel - Renal diet - Nephro following 3)Chronic anemia - h/h stable - will continue to monitor 4) CAD with stents and CABG - continue asa - lipitor, lisinorpil, - will reduce coreg to 3.125 bid due to bradycardia. - cardiology consult pending 5) uncontrolled htn - continue norvasc, clonidine, hydralazine and lisinopril 6) IDDM - ISS - accuchecks achs - will continue basal and bolus insulin. 7) Parkinson - continue sinemet 8) Seizure disorder - continue with primidone 9) Depression/anxiety - Psych on consult, antipsychotics and anti-anxiolitics were adjusted. 10) h/o DVT - INR not therapeutic - will continue heparin drip while bridging with coumadin 11) CHF/arrhythmias - continue amiodorone 12) Left heel ulcer- podiatry following 13) DVT and Gi prophylaxis: heparin drip/coumadin, and protonix. Patient seen examined, case discussed with the attending. <Alexey Morton - Last Filed: 09/01/16 18:54> Objective - Vital Signs/Intake and Output Vital Signs (last 24 hours): Temp Pulse Resp BP Pulse Ox 98.4 F 71 20 174/66 H 98 08/14/16 10:00 08/14/16 10:12 08/14/16 10:00 08/14/16 10:12 08/14/16 12:37 - Labs Labs: 08/14/16 05:30 08/14/16 05:30 PT 54.8 Seconds (9.9-11.8) H* 08/14/16 05:30 INR 5.07 (0.93-1.08) H* 08/14/16 05:30 APTT 45.3 Seconds (23.7-30.8) H 08/12/16 08:16 Attending/Attestation - Attestation I have personally seen and examined this patient.: Yes I have fully participated in the care of the patient.: Yes I have reviewed all pertinent clinical information, including history, physical exam and plan: Yes Notes (Text): 09/01/16 18:54 Medical record note made by the resident after discussion with my direction and input after the patient was personally seen and examined by me. I have reviewed the chart and agree that the record accurately reflects by personal performance of the history, physical exam, data review, and medical decision-making, in the course for the patient. I have also personally directed the plan of care.
[2016-08-10] MEDS: Insulin Lispro (humaLOG) LOW Coverage SC SCH ×4 (07:39→21:55)
[2016-08-10] MEDS: Insulin Lispro 1 UNITS/0.01 ML SC SCH ×4 (07:40→22:04)
[2016-08-10 07:49] LABS: ADD MANUAL DIFF? NO
--- NOTE | 2016-08-10 08:01 | CP.PCM.PN ---
<Tho Farias - Last Filed: 08/10/16 07:57> Subjective - Date & Time of Evaluation Date of Evaluation: 08/10/16 Time of Evaluation: 07:57 - Subjective Subjective: 66 year old female with extensive PMHx admitted for pneumonia was seen at bedside this morning with attending Dr. Gay concerning Left heel ulceration. Patient was resting comfortably in bed with intact dressing. AAO x3. Patient denies any pain in her feet and denies of any trauma. She denies n/f/v/c/d. Objective - Vital Signs/Intake and Output Vital Signs (last 24 hours): Temp Pulse Resp BP Pulse Ox 97.4 F L 51 L 18 166/75 H 97 08/10/16 05:49 08/10/16 05:49 08/10/16 05:49 08/10/16 05:49 08/10/16 05:49 Intake and Output: 08/10/16 08/10/16 06:59 18:59 Intake Total 630 Output Total 500 Balance 130 - Medications Medications: Current Medications Albuterol/Ipratropium (Duoneb 3 Mg/0.5 Mg (3 Ml) Ud) 3 ml IH Q6 [facility] Last Admin: 08/10/16 01:04 Dose: 3 ml Alprazolam (Xanax) 0.25 mg PO BID [facility] Stop: 08/16/16 18:01 Last Admin: 08/09/16 18:13 Dose: 0.25 mg Amiodarone HCl (Cordarone) 200 mg PO DAILY [facility] Last Admin: 08/09/16 09:51 Dose: 200 mg Amlodipine Besylate (Norvasc) 10 mg PO DAILY [facility] Last Admin: 08/09/16 09:49 Dose: 10 mg Aspirin (Ecotrin) 81 mg PO DAILY [facility] Last Admin: 08/09/16 09:50 Dose: 81 mg Atorvastatin Calcium (Lipitor) 80 mg PO DIN [facility] Last Admin: 08/09/16 18:09 Dose: 80 mg Carbidopa/Levodopa (Sinemet 10/100) 1 tab PO TID [facility] Last Admin: 08/09/16 18:16 Dose: 1 tab Carvedilol (Coreg) 6.25 mg PO Q12 [facility] Last Admin: 08/09/16 21:51 Dose: Not Given Clonidine HCl (Catapres) 0.3 mg PO BID [facility] Last Admin: 08/09/16 18:05 Dose: 0.3 mg Collagenase (Santyl) 0 gm TOP DAILY [facility] Last Admin: 08/09/16 20:14 Dose: 1 oin Doxycycline Hyclate (Doryx) 100 mg PO Q12 [facility] PRN Reason: Protocol Escitalopram Oxalate (Lexapro) 10 mg PO DAILY [facility] Last Admin: 08/09/16 09:50 Dose: 10 mg Gabapentin (Neurontin) 100 mg PO BID [facility] PRN Reason: Protocol Last Admin: 08/09/16 18:12 Dose: 100 mg Guaifenesin/Dextromethorphan (Robitussin Dm) 5 ml PO Q4H PRN PRN Reason: Cough Last Admin: 08/09/16 08:04 Dose: 5 ml Hydralazine HCl (Apresoline) 50 mg PO BID [facility] Last Admin: 08/09/16 18:05 Dose: 50 mg Cefepime HCl (Maxipime 1gm) 1 gm in 100 mls @ 200 mls/hr IVPB Q24H [facility] Last Admin: 08/09/16 18:11 Dose: 200 mls/hr Heparin Sodium/Sodium Chloride (Heparin 02641 Units/250ml 1/2 Normal Saline) 25 ,000 units in 250 mls @ 12.247 mls/hr IV .[id number] PRN; Protocol; 18 UNITS/KG/HR PRN Reason: ADJUST RATE PER PROTOCOL Last Titration: 08/09/16 22:49 Dose: 16.55 units/kg/hr, 11.26 mls/hr Insulin Detemir (Levemir) 4 unit SC BID [facility] Last Admin: 08/09/16 18:09 Dose: 4 unit Insulin Human Lispro (Humalog) 2 units SC ACHS [facility] Last Admin: 08/10/16 07:40 Dose: 2 units Insulin Human Lispro (Humalog Low) 0 units SC ACHS [facility] Last Admin: 08/10/16 07:39 Dose: 7 units Lisinopril (Zestril) 80 mg PO DAILY [facility] Methylprednisolone (Solu-Medrol) 40 mg IVP Q12 [facility] Pantoprazole Sodium (Protonix Ec Tab) 40 mg PO DAILY [facility] Last Admin: 08/09/16 09:51 Dose: 40 mg Primidone (Mysoline) 50 mg PO DAILY [facility] Last Admin: 08/09/16 09:50 Dose: 50 mg Sevelamer HCl (Renagel) 800 mg PO TID [facility] Last Admin: 08/09/16 18:12 Dose: 800 mg Warfarin Sodium (Coumadin) 10 mg PO 1800 [facility] PRN Reason: Protocol Last Admin: 08/09/16 18:06 Dose: 10 mg Zinc Sulfate (Zinc Sulfate 220 Mg Cap) 220 mg PO DAILY [facility] Last Admin: 08/09/16 09:57 Dose: 220 mg - Labs Labs: 08/09/16 06:00 08/09/16 06:00 PT 12.4 Seconds (9.9-11.8) H 08/09/16 09:00 INR 1.15 (0.93-1.08) H 08/09/16 09:00 APTT 36.0 Seconds (23.7-30.8) H 08/09/16 21:25 - Constitutional Appears: Well, Non-toxic, No Acute Distress - Extremities Exam Additional comments: Left Lower extremity focused exam: DERM: Superficial ulceration noted to heel measuring 2.5cm x 2.5cm x 0.4cm with macerated wound margin. No erythema is noted. no drainage, no purulence, no malodor, no ascending cellulitis, no fluctuance, no probe to bone noted VASC: Non-palpable DP and PT pulses, CFT < 4 sec to all digits, TG wnl, no edema noted NEURO: Gross sensation diminished ORTHO: Mild pain on palpation to heel, Right Below knee amputation noted - Neurological Exam Neurological Exam: Alert, Awake, Oriented x3 - Psychiatric Exam Psychiatric exam: Normal Affect, Normal Mood - Skin Skin Exam: Normal Color, Warm Assessment and Plan - Assessment and Plan (Free Text) Assessment: 66 year old female seen for diabetic left heel ulceration Plan: Patient examined and evaluated Rounded with attending Chart, labs and vitals reviewed: afebrile, no leukocytosis Left heel cleansed with normal sterile saline Left heel dressed with optifoam; Floor nurse was reminded of Santyl to be ready on floor Patient to continue wearing the multipodus boots at all times in bed Podiatry will continue to monitor while patient remains in house <Dany Gay - Last Filed: 08/10/16 10:42> Objective - Vital Signs/Intake and Output Vital Signs (last 24 hours): Temp Pulse Resp BP Pulse Ox 97.4 F L 51 L 18 166/75 H 97 08/10/16 05:49 08/10/16 05:49 08/10/16 05:49 08/10/16 05:49 08/10/16 05:49 Intake and Output: 08/10/16 08/10/16 06:59 18:59 Intake Total 630 Output Total 500 Balance 130 - Medications Medications: Current Medications Albuterol/Ipratropium (Duoneb 3 Mg/0.5 Mg (3 Ml) Ud) 3 ml IH [id number] [facility] Alprazolam (Xanax) 0.25 mg PO BID [facility] Stop: 08/16/16 18:01 Last Admin: 08/09/16 18:13 Dose: 0.25 mg Amiodarone HCl (Cordarone) 200 mg PO DAILY [facility] Last Admin: 08/09/16 09:51 Dose: 200 mg Amlodipine Besylate (Norvasc) 10 mg PO DAILY [facility] Last Admin: 08/09/16 09:49 Dose: 10 mg Aspirin (Ecotrin) 81 mg PO DAILY [facility] Last Admin: 08/09/16 09:50 Dose: 81 mg Atorvastatin Calcium (Lipitor) 80 mg PO DIN [facility] Last Admin: 08/09/16 18:09 Dose: 80 mg Carbidopa/Levodopa (Sinemet 10/100) 1 tab PO TID [facility] Last Admin: 08/09/16 18:16 Dose: 1 tab Carvedilol (Coreg) 3.125 mg PO Q12 [facility] Clonidine HCl (Catapres) 0.3 mg PO BID [facility] Last Admin: 08/09/16 18:05 Dose: 0.3 mg Collagenase (Santyl) 0 gm TOP DAILY [facility] Doxycycline Hyclate (Doryx) 100 mg PO Q12 [facility] PRN Reason: Protocol Escitalopram Oxalate (Lexapro) 10 mg PO DAILY [facility] Last Admin: 08/09/16 09:50 Dose: 10 mg Gabapentin (Neurontin) 100 mg PO BID [facility] PRN Reason: Protocol Last Admin: 08/09/16 18:12 Dose: 100 mg Guaifenesin/Dextromethorphan (Robitussin Dm) 5 ml PO Q4H PRN PRN Reason: Cough Last Admin: 08/09/16 08:04 Dose: 5 ml Hydralazine HCl (Apresoline) 50 mg PO BID [facility] Last Admin: 08/09/16 18:05 Dose: 50 mg Cefepime HCl (Maxipime 1gm) 1 gm in 100 mls @ 200 mls/hr IVPB Q24H [facility] Last Admin: 08/09/16 18:11 Dose: 200 mls/hr Heparin Sodium/Sodium Chloride (Heparin 47594 Units/250ml 1/2 Normal Saline) 25 ,000 units in 250 mls @ 12.247 mls/hr IV .[id number] PRN; Protocol; 18 UNITS/KG/HR PRN Reason: ADJUST RATE PER PROTOCOL Last Titration: 08/09/16 22:49 Dose: 16.55 units/kg/hr, 11.26 mls/hr Insulin Detemir (Levemir) 4 unit SC BID [facility] Last Admin: 08/09/16 18:09 Dose: 4 unit Insulin Human Lispro (Humalog) 2 units SC ACHS [facility] Last Admin: 08/10/16 07:40 Dose: 2 units Insulin Human Lispro (Humalog Low) 0 units SC ACHS [facility] Last Admin: 08/10/16 07:39 Dose: 7 units Lisinopril (Zestril) 80 mg PO DAILY [facility] Methylprednisolone (Solu-Medrol) 40 mg IVP Q12 [facility] Pantoprazole Sodium (Protonix Ec Tab) 40 mg PO DAILY [facility] Last Admin: 08/09/16 09:51 Dose: 40 mg Primidone (Mysoline) 50 mg PO DAILY [facility] Last Admin: 08/09/16 09:50 Dose: 50 mg Sevelamer HCl (Renagel) 800 mg PO TID [facility] Last Admin: 08/09/16 18:12 Dose: 800 mg Warfarin Sodium (Coumadin) 10 mg PO 1800 [facility] PRN Reason: Protocol Last Admin: 08/09/16 18:06 Dose: 10 mg Zinc Sulfate (Zinc Sulfate 220 Mg Cap) 220 mg PO DAILY [facility] Last Admin: 08/09/16 09:57 Dose: 220 mg - Labs Labs: 08/10/16 07:00 08/10/16 08:00 PT 13.1 Seconds (9.9-11.8) H 08/10/16 07:00 INR 1.21 (0.93-1.08) H 08/10/16 07:00 APTT 141.7 Seconds (23.7-30.8) H* 08/10/16 07:00 Attending/Attestation - Attestation I have personally seen and examined this patient.: Yes I have fully participated in the care of the patient.: Yes I have reviewed all pertinent clinical information, including history, physical exam and plan: Yes
[2016-08-10 08:02] LABS: GRAN # 8.01 (1.4-6.5); GRAN % 87.1 % (50.0-68.0); HEMATOCRIT 32.5 % (36.0-48.0); LYMPH # 0.9 (1.2-3.4); LYMPH % 10.1 % (22.0-35.0); MEAN CELL VOLUME 84.6 fL (80.0-105.0); MEAN CORPUSCULAR HEMOGLOBIN 27.6 pg (25.0-35.0); MEAN CORPUSCULAR HGB CONC 32.6 g/dl (31.0-37.0); MONO # 0.3 (0.1-0.6); MONO % 2.8 % (1.0-6.0); PLATELET COUNT 148 10^3/uL (120.0-450.0); RED CELL DISTRIBUTION WIDTH 18.2 % (11.5-14.5); WHITE BLOOD COUNT 9.2 10^3/ul (4.5-11.0)
[2016-08-10 08:12] LABS: INR 1.21 (0.93-1.08)
[2016-08-10 08:20] LABS: PARTIAL THROMBOPLASTIN TIME 141.7 Seconds (23.7-30.8)
[2016-08-10 08:43] LABS: CALCIUM 9.5 mg/dL (8.4-10.5); POTASSIUM 4.6 mmol/L (3.6-5.0)
[2016-08-10] MEDS: Heparin25000 units/250ml 1/2NS 25,000 UNITS/250 ML BAG IV PRN ×3 (09:00→22:57)
--- NOTE | 2016-08-10 10:45 | CON ---
DATE: 08/10/2016 REASON FOR CONSULTATION: Pneumonia. REFERRING PHYSICIAN: Dr. Wm Aguirre. HISTORY OF PRESENT ILLNESS: The patient is a 66-year-old chronically ill female , with past medical history significant for end-stage renal disease/ hemodialysis dependent, coronary artery disease, status post multiple cardiac stents, status post coronary bypass graft surgery, right [id number] amputation, insulin-dependent diabetes mellitus, antiphospholipid syndrome, deep venous thrombosis in the past, Parkinson's syndrome, depression, seizure disorder, congestive heart failure, who presents to [facility] with main complaints of worsening cough and sputum production for the past 2 days. The patient denies shortness of breath at rest. She does state to mild dyspnea on exertion. There is no history of chest pain, coughing up of blood or chest pain made worse with deep respirations. The patient did present to [facility] with fevers. The fevers have now resolved. No history of chills or infectious exposure. No history of night sweats, weight loss or appetite change prior to the above events. No history of leg or calf pains. No history of syncope or diaphoresis. No history of recent travel or trauma. REVIEW OF SYSTEMS: No history of nausea, vomiting or diarrhea. No new neurological or musculoskeletal complaints. Rest of the review of systems is negative. ALLERGIES: CIPROFLOXACIN, BIAXIN. SOCIAL HISTORY: Positive for tobacco, negative for alcohol. FAMILY HISTORY: No inheritable diseases. HOME MEDICATIONS: Include Apresoline, Norvasc, Coumadin, Renagel, Zoloft, Protonix, Zestril, Levemir, Neurontin, Lexapro, Catapres, Sinemet, Coreg, Lipitor and amiodarone. PHYSICAL EXAMINATION: GENERAL: The patient is comfortable at rest. She is not short of breath. VITAL SIGNS: Temperature is 97.4, pulse 51, respirations 18, blood pressure 166 /75. Oxygen saturation on room air is 97%. HEENT: Normocephalic, atraumatic. NECK: No JVD. CARDIOVASCULAR: Positive S1, S2. No S3. LUNGS: Decreased breath sounds at the bases. Minimal bilateral rhonchi. No wheezing. EXTREMITIES: The patient is status post right BKA. Left lower extremity shows mild edema. No cyanosis, no clubbing. The left calf is nontender to palpation. GASTROINTESTINAL: Abdomen is soft, nontender, nondistended. Bowel sounds are positive. SKIN: No acute rash. NEUROLOGIC: Limited at the present time. PERTINENT LABORATORY DATA: CAT scan of the chest was done yesterday and reviewed. There is a left lingular infiltrate noted. There are also some very small nonspecific nodular opacities bilaterally. There is no significant lymphadenopathy. CBC: White count 4.6, hemoglobin 10.5, hematocrit 33.0, platelets of 138. Complete metabolic profile: Chloride 93, BUN 39, creatinine 4.1, glucose 263. Rest of the metabolic profile is within normal limits. IMPRESSION: 1. Left lingular pneumonia. 2. Sepsis syndrome, resolving. 3. Mild anemia. 4. Coronary artery disease. 5. Diabetes mellitus. PLAN: The patient presents to [facility] with a 2-day history of worsening pulmonary symptoms. I did review the CAT scan of the chest--as above. There is an infiltrate noted in the left lingular area. There are no other significant/acute findings. There is no significant lymphadenopathy. I would continue with the current antibiotic therapy-- as per infectious disease. The temperatures have now resolved. On physical exam, there is only mild bronchospasm noted. I will continue the current nebulizer treatments and decrease the intravenous steroids this morning. Decreasing the intravenous steroids should also help the blood sugars. Repeat a.m. labs are pending. Clinical status of the patient is certainly improving. The patient states to feeling much better overall-- compared to the initial presentation. She has much less pulmonary symptoms. Again, her temperatures have completely resolved. I would continue with the renal and infectious disease evaluations. Inputs are noted. Additional pulmonary intervention will be based on the clinical status of the patient. I will discuss the above with the attending physician. Thank you very much for this pulmonary consultation. Mart Chacon MD cc: [id number] TT: 08/10/2016 10:44:19 Confirmation # [id number] Dictation # [id number] kristal YUAN
[2016-08-10] MEDS: Insulin Detemir 100 units/ml Vial (Levemir) SC SCH ×2 (10:57→18:00)
--- NOTE | 2016-08-10 11:37 | CON ---
DATE: 08/10/2016 INDICATIONS: Cough, sputum production, weakness, coronary artery disease, coronary bypass surgery. HISTORY OF PRESENT ILLNESS: This is a 66-year-old woman with a complex past medical history known to me from previous admissions, admitted on 08/08 with cough, sputum production and weakness following hemodialysis. She is improved, resting in bed on telemetry being treated for pneumonia. There is no chest pain or shortness of breath. No orthopnea, PND or syncope, no palpitations, no hemoptysis, abdominal pain, nausea, vomiting, diarrhea, constipation, or melena. PAST MEDICAL HISTORY: Extensive. She has coronary artery disease and underwent coronary bypass surgery in 02/2016. This was complicated by a sternal wound infection. She has mild LV dysfunction, chronic kidney disease and chronic hemodialysis, hypertension, diabetes, peripheral vascular disease with right BKA and amputation of a toe. She has antiphospholipid syndrome on chronic warfarin therapy. There is a history of DVT as well as emboli to kidneys and liver. She has a history of anxiety, depression, pneumonia, Parkinson's disease , GERD, seizure disorder. She has an ulcer on her left heel. MEDICATIONS: At the time of admission included hydralazine, aspirin, clonidine , Coreg, warfarin, Levemir, Lexapro, Lipitor, Mysoline, Neurontin, Norvasc, NovoLog, amiodarone, Protonix, Sinemet, lisinopril, zinc, sertraline. ALLERGIES: SHE NOTES ALLERGIES TO CIPRO AND CLARITHROMYCIN. SOCIAL HISTORY: She lives at home currently. She does not smoke. She does not drink. FAMILY HISTORY: Noncontributory. REVIEW OF SYSTEMS: A 10-point review of systems is otherwise unremarkable except as noted above. PHYSICAL EXAMINATION: GENERAL: She is a well-developed woman lying in bed on telemetry in no acute distress. VITAL SIGNS: Notable for sinus bradycardia in the 40s and 50s. She is afebrile. Blood pressure 166/75, respirations 18-20, O2 sat 96% - 97% on room air. HEENT: Reveals no neck vein distention, thyromegaly, or carotid bruits. Mucous membranes are moist. Conjunctivae are pink. NECK: Supple. LUNGS: [place] clear. HEART: Revealed normal first and second heart sounds without murmur, gallop, rub or click. ABDOMEN: Soft, bowel sounds present. No mass, organomegaly, tenderness, rebound, guarding, CVA tenderness. EXTREMITIES: Reveals a right BKA. NEUROLOGIC: She is awake, alert and oriented. PSYCHIATRIC: Normal as to mood and affect. SKIN: Warm and dry. No rash or cellulitis. LABORATORY AND IMAGING: A chest x-ray reveals probable linear atelectasis at the right base, otherwise no acute findings. A CT scan of the chest reveals navi linear infiltrate, multifocal patchy opacities bilaterally, likely infectious or inflammatory etiology. No pleural effusion. EKG demonstrates sinus bradycardia, LVH, ST wave changes consistent with ischemia, no change from previous EKG. White count normal, platelet count normal, hemoglobin 10.6, hematocrit 32.5. PT, INR, PTT unremarkable initially, PTTs reflect heparin therapy todays' is 141.7. ABGs noted. Electrolytes noted. Initial potassium 5.5, currently, 4.6. Creatinine 4.1, blood sugar is in 200 range. Magnesium 2.2. LFTs unremarkable. BNP 69,000. Procalcitonin 0.13, troponin 0.10 and 0.08. IMPRESSION: The patient is a 66-year-old woman with a very complex past medical history admitted with cough, sputum production, abnormal CT of the chest suggesting infiltrates and pneumonia. She has known coronary artery disease status post coronary bypass surgery with mild left ventricular dysfunction and is a chronic hemodialysis patient with multiple other medical problems including antiphospholipid syndrome. She is on telemetry. I agree with current plans. She is on heparin and being given warfarin loading. We will continue her outpatient medications including hydralazine, clonidine, amiodarone, Coreg, aspirin, diabetes medications, Lipitor, gabapentin, Mysoline , amlodipine, carbidopa levodopa, Xanax, lisinopril. She is getting antibiotics. She has been cultured. We will monitor I's and O's. She will get hemodialysis today. We will monitor blood work. She has an ID consultation , psychiatric consultation, podiatric consultation, pulmonary consultation. I will follow along with you. I will make additional recommendations based on her clinical course. Alistair De La Rosa MD cc: [id number] TT: 08/10/2016 11:37:10 Confirmation # [id number] Dictation # [id number] jn MTDD
--- NOTE | 2016-08-10 13:47 | PN ---
DATE: 08/10/2016 The patient is in bed in no acute distress, nontoxic. She is doing better. PHYSICAL EXAMINATION: VITAL SIGNS: Temperature is 97, blood pressure is 160/70, respiratory rate of 16. HEENT: Unremarkable. NECK: Supple. LUNGS: Decreased breath sounds. HEART: Normal S1, S2. ABDOMEN: Soft, nontender. LABORATORY EXAMINATION: Reveals a white count of 9.2, hemoglobin of 10, platelets of 148, BUN of 67, creatinine of 5.1. C-reactive protein is greater than 15. Microbiology reveals the blood cultures are no growth. CAT scan of the chest was done: Freddy lingular infiltrate, multifocal patchy opacity bilaterally and CAT scan is reviewed. The images also reviewed. The patient had a foot x-ray which revealed amputation of the first toe. Otherwise, an unremarkable study. Dr. Chacon's consultation is reviewed from this morning and he feels patient has a left lingular pneumonia. Dr. Gay's prog ress note is reviewed. He states the patient has a left heel ulceration. Microbiology reveals the b lood cultures are no growth. Review of the orders reveals the patient is on cefepime and methylpredn isone and doxycycline. The patient's procalcitonin is reported to be 0.13. ASSESSMENT AND PLAN: A 66-year-old female with past medical history significant for chronic renal fa ilure on hemodialysis, coronary artery disease with stents, coronary bypass graft with a right below- knee amputation, diabetes mellitus and antiphospholipid syndrome, deep venous thrombosis, Parkinson's , depression and seizures and gastroesophageal reflux disease with congestive heart failure, presenti with pulmonary symptoms with a left-sided healthcare-associated pneumonia with negative blood cult ures. The patient also with a left heel ulcer, currently on doxycycline and cefepime, day #3, also w ith a left heel ulcer, negative x-ray. We will check on a bone scan. Will complete 4-7 days of anti biotics for the healthcare-associated pneumonia, especially in face of a normal procalcitonin. We wi ll check on the bone scan and then we will make further recommendations. Elijah Stuart MD cc: [id number] TT: 08/10/2016 13:46:33 Confirmation # [id number] Dictation # [id number] tn
[2016-08-10] MEDS: Pantoprazole 40 mg EC Tab PO SCH (14:29)
[2016-08-10] MEDS: Collagenase 250 Units/gm Ointment(30 gm) TOP SCH (14:30)
[2016-08-10] MEDS: Cefepime 1gm in NS 100ml 1 GM/100 ML BAG IVPB SCH (17:59)
[2016-08-11] MEDS: guaiFENesin DM 100 mg-10 mg/5 ml UD PO PRN ×2 (03:03→10:15)
[2016-08-11] MEDS: Albuterol-Ipratrop 3 mg / 0.5 (3 ml) UD IH SCH ×6 (04:01→23:40)
[2016-08-11 07:31] LABS: ADD MANUAL DIFF? NO
[2016-08-11] MEDS: Insulin Lispro 1 UNITS/0.01 ML SC SCH ×4 (07:53→21:33)
[2016-08-11] MEDS: Insulin Lispro (humaLOG) LOW Coverage SC SCH ×4 (07:53→21:33)
[2016-08-11 07:55] LABS: INR 1.4 (0.93-1.08)
[2016-08-11 07:57] LABS: CALCIUM 9.3 mg/dL (8.4-10.5); POTASSIUM 4.7 mmol/L (3.6-5.0)
[2016-08-11 07:58] LABS: GRAN # 8.07 (1.4-6.5); GRAN % 89.5 % (50.0-68.0); HEMATOCRIT 33.8 % (36.0-48.0); LYMPH # 0.8 (1.2-3.4); LYMPH % 8.6 % (22.0-35.0); MEAN CELL VOLUME 84.5 fL (80.0-105.0); MEAN PLATELET VOLUME 11.5 fl (7.0-11.0); MONO # 0.2 (0.1-0.6); MONO % 1.9 % (1.0-6.0); PLATELET COUNT 152 10^3/uL (120.0-450.0); RED CELL DISTRIBUTION WIDTH 18.2 % (11.5-14.5)
--- NOTE | 2016-08-11 08:16 | PN ---
DATE: 08/11/2016 SUBJECTIVE: The patient appears comfortable this morning. She is not short of breath at rest. PHYSICAL EXAMINATION: VITAL SIGNS: Temperature is 98.2, pulse 55, respirations 18, blood pressure 168 /67. Oxygen saturation on nasal cannula is 96%. HEENT: Normocephalic, atraumatic. No JVD. CARDIOVASCULAR: Positive S1, S2. No S3. LUNGS: Decreased breath sounds at the bases. Minimal/less rhonchi. No wheezing. EXTREMITIES: The patient is status post right BKA. Left lower extremity shows mild edema. No cyanosis, no clubbing. The left calf is nontender to palpation. GASTROINTESTINAL: Abdomen is soft, nontender, nondistended. Bowel sounds are positive. SKIN: No acute rash. NEUROLOGIC: Limited at the present time. IMPRESSION: 1. Left lingular pneumonia. 2. Sepsis syndrome -- resolving. 3. Mild anemia. 4. Coronary artery disease. 5. Diabetes mellitus. PLAN: The patient appears very comfortable this morning. She is not short of breath at rest. She states she is feeling much better overall. On physical exam, she is not in significant bronchospasm. In addition, there is no significant alveolar-arterial gradient. I will continue with the current nebulizer treatments and current intravenous steroids (decreased yesterday) for now. The patient remains on antibiotic therapy -- as per infectious disease. The temperatures have now completely resolved. There is no leukocytosis. I would continue with the current antibiotic therapy for now. Cardiology evaluation by Dr. De La Rosa is also noted. Clinical status of the patient appears significantly improved -- compared to the initial presentation. However, the overall status/prognosis of this patient -- with multiple medical problems -- does remain guarded overall. I will discuss the above with the attending physician. Mart Chacon MD cc: [id number] TT: 08/11/2016 08:15:49 Confirmation # [id number] Dictation # [id number] en MTDD
--- NOTE | 2016-08-11 08:22 | CP.PCM.PN ---
Subjective - Date & Time of Evaluation Date of Evaluation: 08/11/16 Time of Evaluation: 07:00 - Subjective Subjective: Stable on 2R. No CP or SOB. V/S noted. RSR/S. Humberto PE; Lungs: rhonchi Cor.: S1S2 Abd.: soft Ext.: Rt. BKA. no edema Neuro.: alert HD yesterday Labs noted: Ptt=35, INR= 1.4, Na+= 130, K+= 4.7, BS = 343 BC x2 NG at 48 hrs. Objective - Vital Signs/Intake and Output Vital Signs (last 24 hours): Temp Pulse Resp BP Pulse Ox 98.2 F 56 L 18 168/67 H 96 08/11/16 06:00 08/11/16 06:00 08/11/16 06:00 08/11/16 06:00 08/11/16 06:00 Intake and Output: 08/11/16 08/11/16 06:59 18:59 Intake Total 862 Output Total 200 Balance 662 - Medications Medications: Current Medications Albuterol/Ipratropium (Duoneb 3 Mg/0.5 Mg (3 Ml) Ud) 3 ml IH [id number] [facility] Last Admin: 08/11/16 04:01 Dose: Not Given Alprazolam (Xanax) 0.25 mg PO BID [facility] Stop: 08/16/16 18:01 Last Admin: 08/10/16 17:50 Dose: 0.25 mg Amiodarone HCl (Cordarone) 200 mg PO DAILY [facility] Last Admin: 08/10/16 14:27 Dose: 200 mg Amlodipine Besylate (Norvasc) 10 mg PO DAILY [facility] Last Admin: 08/10/16 14:29 Dose: 10 mg Aspirin (Ecotrin) 81 mg PO DAILY [facility] Last Admin: 08/10/16 14:27 Dose: 81 mg Atorvastatin Calcium (Lipitor) 80 mg PO DIN [facility] Last Admin: 08/10/16 17:59 Dose: 80 mg Carbidopa/Levodopa (Sinemet 10/100) 1 tab PO TID [facility] Last Admin: 08/10/16 17:49 Dose: 1 tab Carvedilol (Coreg) 3.125 mg PO Q12 [facility] Last Admin: 08/10/16 22:14 Dose: 3.125 mg Clonidine HCl (Catapres) 0.3 mg PO BID [facility] Last Admin: 05/13/17 17:51 Dose: 0.3 mg Collagenase (Santyl) 0 gm TOP DAILY [facility] Last Admin: 08/10/16 14:30 Dose: 1 tcp Doxycycline Hyclate (Doryx) 100 mg PO Q12 [facility] PRN Reason: Protocol Last Admin: 08/10/16 22:03 Dose: 100 mg Escitalopram Oxalate (Lexapro) 10 mg PO DAILY [facility] Last Admin: 08/10/16 14:28 Dose: 10 mg Gabapentin (Neurontin) 100 mg PO BID [facility] PRN Reason: Protocol Last Admin: 08/10/16 17:50 Dose: 100 mg Guaifenesin/Dextromethorphan (Robitussin Dm) 5 ml PO Q4H PRN PRN Reason: Cough Last Admin: 08/11/16 03:03 Dose: 5 ml Hydralazine HCl (Apresoline) 50 mg PO BID [facility] Last Admin: 08/10/16 17:50 Dose: 50 mg Cefepime HCl (Maxipime 1gm) 1 gm in 100 mls @ 200 mls/hr IVPB Q24H [facility] Last Admin: 08/10/16 17:59 Dose: 200 mls/hr Heparin Sodium/Sodium Chloride (Heparin 47946 Units/250ml 1/2 Normal Saline) 25 ,000 units in 250 mls @ 12.247 mls/hr IV .[id number] PRN; Protocol; 18 UNITS/KG/HR PRN Reason: ADJUST RATE PER PROTOCOL Last Admin: 08/10/16 22:57 Dose: 7.11 units/kg/hr, 4.838 mls/hr Insulin Detemir (Levemir) 8 unit SC BID [facility] Last Admin: 08/10/16 18:00 Dose: 8 unit Insulin Human Lispro (Humalog) 2 units SC ACHS [facility] Last Admin: 08/11/16 07:53 Dose: 2 units Insulin Human Lispro (Humalog Low) 0 units SC ACHS [facility] Last Admin: 08/11/16 07:53 Dose: 5 units Lisinopril (Zestril) 80 mg PO DAILY [facility] Last Admin: 08/10/16 14:31 Dose: 80 mg Methylprednisolone (Solu-Medrol) 40 mg IVP Q12 [facility] Last Admin: 08/10/16 22:02 Dose: 40 mg Pantoprazole Sodium (Protonix Ec Tab) 40 mg PO DAILY [facility] Last Admin: 08/10/16 14:29 Dose: 40 mg Primidone (Mysoline) 50 mg PO DAILY [facility] Last Admin: 08/10/16 14:28 Dose: 50 mg Primidone (Mysoline) 50 mg PO HS [facility] Sevelamer HCl (Renagel) 800 mg PO TID [facility] Last Admin: 08/10/16 17:49 Dose: 800 mg Warfarin Sodium (Coumadin) 10 mg PO 1800 [facility] PRN Reason: Protocol Last Admin: 08/10/16 17:50 Dose: 10 mg Zinc Sulfate (Zinc Sulfate 220 Mg Cap) 220 mg PO DAILY [facility] Last Admin: 08/10/16 14:31 Dose: 220 mg - Labs Labs: 08/10/16 07:00 08/11/16 07:00 PT 15.1 Seconds (9.9-11.8) H 08/11/16 07:00 INR 1.40 (0.93-1.08) H 08/11/16 07:00 APTT 35.0 Seconds (23.7-30.8) H 08/11/16 07:00 Assessment and Plan - Assessment and Plan (Free Text) Plan: Assessment: Cough/SOB/Weak Pneumonia CAD/CABG 03/15 with sternal wound infection post op. CKD/HD HBP Diabetes PVD/Rt. BKA/Toe amp. Antiphospholipid Syndrome/DVT/Peripheral emboli Anxiety/Depression Parkinson's Disease GERD Seizure Disorder Left heel ulceration Plan: As per ID, Renal, Podiatry, Psych., Pulm. Continue cardiac meds. Warfarin 10 mg. today. Monitor INR's daily. OOB to chair as nkechi.
[2016-08-11] MEDS: Heparin25000 units/250ml 1/2NS 25,000 UNITS/250 ML BAG IV PRN ×2 (08:52→17:48)
--- NOTE | 2016-08-11 08:57 | PN ---
DATE: 08/11/2016 The patient is in bed in no acute distress, nontoxic. No fevers and chills. She is doing better thi s morning. PHYSICAL EXAMINATION: VITAL SIGNS: Temperature is 98. Blood pressure is 160/60, respiratory rate of 20, heart rate of 57. HEENT: Unremarkable. NECK: Supple. LUNGS: Have decreased breath sounds. HEART: Normal S1, S2. ABDOMEN: Soft, nontender. LABORATORY EXAMINATION: Reveals a white count of 9, hemoglobin of 10, platelets of 552. Blood gases are reviewed. Chemistries reveal the patient's procalcitonin is 0.13, BUN of 43, creatinine of 3.9. Microbiology reveals the blood cultures are negative. The patient's CAT scan of the chest: Lingular infiltrate, multifocal patchy opacity. Dr. Chacon's note is reviewed. Dr. Alistair De La Rosa's note is reviewed. ASSESSMENT AND PLAN: This is a 66-year-old female with past medical history significant for chronic renal failure on hemodialysis, coronary artery disease with stents and coronary bypass graft, history of right below-knee amputation, diabetes mellitus, and antiphospholipid syndrome, history of deep ve nous thrombosis, Parkinson's, depression, seizures, gastroesophageal reflux disease, and congestive h eart failure, admitted on this admission with pulmonary symptoms and found to have a left-sided healt hcare-associated pneumonia. The patient also with a left heel ulcer, currently on cefepime and doxyc ycline day #4. The procalcitonin is normal. The x-ray of the left heel is also negative. Awaiting a bone scan to rule out osteomyelitis of the left heel. Today is day #4 of 4-7 days as far as the he althcare-associated pneumonia treatment. The patient is on p.o. doxycycline and cefepime, day #4 of 4-7 days. The patient is also on Solu-Medrol. Awaiting a bone scan for the left heel. We will foll ow closely with you. Normal procalcitonin. Elijah Stuart MD cc: [id number] TT: 08/11/2016 08:56:05 Confirmation # [id number] Dictation # [id number] jn
[2016-08-11] MEDS: Insulin Detemir 100 units/ml Vial (Levemir) SC SCH ×2 (10:15→18:24)
[2016-08-11] MEDS: Collagenase 250 Units/gm Ointment(30 gm) TOP SCH (10:22)
[2016-08-11] MEDS: Pantoprazole 40 mg EC Tab PO SCH (10:52)
--- NOTE | 2016-08-11 11:03 | PN ---
DATE: 08/11/[address] Morton and Dr. Aguirre, who are off today. She is resting comfortably in bed. She had dialysis yesterday. No chest pain or shortness of breath at this time. No abdominal pain. A little tired, but no acute complaints. PHYSICAL EXAMINATION: VITAL SIGNS: Temp 98.2, 55 pulse, 168/67 blood pressure, 18 respiratory rate, and 96% O2 sat on nasa l cannula. HEAD: Atraumatic, normocephalic. THROAT: Moist. NECK: Supple. HEART: Regular rate. LUNGS: Decreased breath sounds, but clear to auscultation. ABDOMEN: Soft. EXTREMITIES: She has a right below knee amputation and a left heel ulcer. Trace edema, if any. She is currently on Apresoline, Catapres, Cordarone, Coreg, Coumadin, Doryx, DuoNeb, Ecotrin, heparin , Humalog, Levemir, Lexapro, Lipitor, cefepime, Mysoline, gabapentin, Norvasc, Protonix, Renagel, Ga itussin, Santyl, Sinemet, Solu-Medrol. I will decrease that to 30 q. 12. Xanax, lisinopril, zinc. She has a 130 sodium, which is better, 4.7 potassium, BUN is 43, creatinine 3.9, better after dialysi s, GFR is up to 11. Blood sugars have been high at 382 and 343. I will work on her insulin also. T roponin 0.08. TSH is 0.8. INR is 1.4, slowly getting better. I will check another level tomorrow. White count 9, 10.8 hemoglobin, 33.8 hematocrit with 152 platelets. She is here for pneumonia, congestive heart failure, left heel ulcer, chronic renal failure on dialys is, coronary artery disease, diabetes, Parkinson's and she has a right below knee amputation. We will continue with aggressive treatment and care. She is being seen by multiple doctors, you have infectious disease, you have cardiology, you have pulmonology. Covering for Dr. Morton. Daniel Garcia DO cc: [id number] TT: 08/11/2016 11:02:58 Confirmation # [id number] Dictation # [id number] en
[2016-08-11] MEDS: Cefepime 1gm in NS 100ml 1 GM/100 ML BAG IVPB SCH (16:05)
[2016-08-11] MEDS ORDERED: MethylPREDNISolone 40 mg Vial IVP SCH (22:00)
[2016-08-12] MEDS: Albuterol-Ipratrop 3 mg / 0.5 (3 ml) UD IH SCH ×6 (04:00→23:30)
--- NOTE | 2016-08-12 06:52 | CP.PCM.PN ---
<Angelica Dominguez - Last Filed: 08/13/16 06:44> Subjective - Date & Time of Evaluation Date of Evaluation: 08/12/16 Time of Evaluation: 07:30 - Subjective Subjective: Medicine progress note for Dr Morton and Dr Aguirre Patient with no acute events over night. Patient report the cough and sob has improved. Patient denies cp, n/v/d. Patient denies fever or chills. Patient requesting to go home today. Objective - Vital Signs/Intake and Output Vital Signs (last 24 hours): Temp Pulse Resp BP Pulse Ox 98.8 F 57 L 19 155/67 H 98 08/12/16 06:00 08/12/16 06:00 08/12/16 06:00 08/12/16 06:00 08/12/16 06:00 Intake and Output: 08/11/16 08/12/16 18:59 06:59 Intake Total 1580 878 Output Total 100 0 Balance 1480 878 - Medications Medications: Current Medications Albuterol/Ipratropium (Duoneb 3 Mg/0.5 Mg (3 Ml) Ud) 3 ml IH [id number] [facility] Last Admin: 08/11/16 23:40 Dose: 3 ml Alprazolam (Xanax) 0.25 mg PO BID [facility] Stop: 08/16/16 18:01 Last Admin: 08/11/16 18:45 Dose: 0.25 mg Amiodarone HCl (Cordarone) 200 mg PO DAILY [facility] Last Admin: 08/11/16 10:19 Dose: Not Given Amlodipine Besylate (Norvasc) 10 mg PO DAILY [facility] Last Admin: 08/11/16 10:18 Dose: 10 mg Aspirin (Ecotrin) 81 mg PO DAILY [facility] Last Admin: 08/11/16 10:17 Dose: 81 mg Atorvastatin Calcium (Lipitor) 80 mg PO DIN [facility] Last Admin: 08/11/16 18:25 Dose: 80 mg Carbidopa/Levodopa (Sinemet 10/100) 1 tab PO TID [facility] Last Admin: 08/11/16 18:45 Dose: 1 tab Carvedilol (Coreg) 3.125 mg PO Q12 [facility] Last Admin: 08/11/16 21:31 Dose: Not Given Clonidine HCl (Catapres) 0.3 mg PO BID [facility] Last Admin: 08/11/16 18:26 Dose: 0.3 mg Collagenase (Santyl) 0 gm TOP DAILY [facility] Last Admin: 08/11/16 10:22 Dose: 1 tcp Doxycycline Hyclate (Doryx) 100 mg PO Q12 [facility] PRN Reason: Protocol Last Admin: 08/11/16 21:35 Dose: 100 mg Escitalopram Oxalate (Lexapro) 10 mg PO DAILY [facility] Last Admin: 08/11/16 10:16 Dose: 10 mg Gabapentin (Neurontin) 100 mg PO BID [facility] PRN Reason: Protocol Last Admin: 08/11/16 18:45 Dose: 100 mg Guaifenesin/Dextromethorphan (Robitussin Dm) 5 ml PO Q4H PRN PRN Reason: Cough Last Admin: 08/11/16 10:15 Dose: 5 ml Hydralazine HCl (Apresoline) 50 mg PO BID [facility] Last Admin: 08/11/16 18:25 Dose: 50 mg Cefepime HCl (Maxipime 1gm) 1 gm in 100 mls @ 200 mls/hr IVPB Q24H [facility] Last Admin: 08/11/16 16:05 Dose: 200 mls/hr Heparin Sodium/Sodium Chloride (Heparin 37589 Units/250ml 1/2 Normal Saline) 25 ,000 units in 250 mls @ 12.247 mls/hr IV .[id number] PRN; Protocol; 18 UNITS/KG/HR PRN Reason: ADJUST RATE PER PROTOCOL Last Titration: 08/12/16 02:16 Dose: 9.78 units/kg/hr, 6.654 mls/hr Insulin Detemir (Levemir) 8 unit SC BID [facility] Last Admin: 08/11/16 18:24 Dose: 8 unit Insulin Human Lispro (Humalog) 2 units SC ACHS [facility] Last Admin: 08/11/16 21:33 Dose: Not Given Insulin Human Lispro (Humalog Low) 0 units SC ACHS [facility] Last Admin: 08/11/16 21:33 Dose: Not Given Lisinopril (Zestril) 80 mg PO DAILY [facility] Last Admin: 08/11/16 10:16 Dose: 80 mg Pantoprazole Sodium (Protonix Ec Tab) 40 mg PO DAILY [facility] Last Admin: 08/11/16 10:52 Dose: 40 mg Prednisone (Prednisone Tab) 30 mg PO DAILY [facility] Primidone (Mysoline) 50 mg PO DAILY [facility] Last Admin: 08/11/16 10:16 Dose: 50 mg Primidone (Mysoline) 50 mg PO HS [facility] Sevelamer HCl (Renagel) 800 mg PO TID [facility] Last Admin: 08/11/16 18:45 Dose: 800 mg Warfarin Sodium (Coumadin) 10 mg PO 1800 [facility] PRN Reason: Protocol Last Admin: 08/11/16 18:25 Dose: 10 mg Zinc Sulfate (Zinc Sulfate 220 Mg Cap) 220 mg PO DAILY [facility] Last Admin: 08/11/16 10:18 Dose: 220 mg - Labs Labs: 08/11/16 07:00 08/11/16 07:00 PT 15.1 Seconds (9.9-11.8) H 08/11/16 07:00 INR 1.40 (0.93-1.08) H 08/11/16 07:00 APTT 100.1 Seconds (23.7-30.8) H* 08/12/16 00:30 - Constitutional Appears: No Acute Distress, Older Than Stated Age - Head Exam Head Exam: ATRAUMATIC, NORMAL INSPECTION, NORMOCEPHALIC - Eye Exam Eye Exam: Normal appearance - ENT Exam ENT Exam: Mucous Membranes Moist - Neck Exam Neck Exam: Normal Inspection - Respiratory Exam Respiratory Exam: Wheezes (mild at the bases), NORMAL BREATHING PATTERN. absent : Rales, Rhonchi, Respiratory Distress, Stridor - Cardiovascular Exam Cardiovascular Exam: REGULAR RHYTHM, RRR, +S1, +S2. absent: Murmur - GI/Abdominal Exam GI & Abdominal Exam: Soft, Normal Bowel Sounds. absent: Distended, Firm, Guarding, Tenderness - Extremities Exam Extremities Exam: absent: Pedal Edema - Back Exam Back Exam: NORMAL INSPECTION - Neurological Exam Neurological Exam: Alert, Awake, Oriented x3 - Psychiatric Exam Psychiatric exam: Normal Affect, Normal Mood - Skin Skin Exam: Dry, Intact, Warm Additional comments: left heel with ~2 cm ulceration, no drainage, + granulation tissue. Left upper extremities with old avf, no thrill or bruit. right lower extremities with post amputation stump Assessment and Plan - Assessment and Plan (Free Text) Assessment: Patient is a 66 yo with multiple comorbidities admitted with HAP, now found to have osteomyolitis of the left ankle. Plan: 1) HAP/bronchitis- - clinical status improved - will continue duoneb - steroid not being tapered - will continue cefepime and doxy as per ID 2) Osteomyolitis of the left heel - Pending podiatry treatment plan - pending ID - on broadspectrum antibiotics. 3)Uncontrolled htn - will continue clonodine, lisinopril, and norvasc. will increase hydralazine dose to 100 q8. 4) IDDM - will increase levemir to 10 unit - continue ISS, and pre-prandial insulin - Carb controlled diet - Fingerstick ACHS. 5) ESRD on HD - On renagel - Renal diet - Nephro following 6)Chronic anemia - h/h stable - will continue to monitor 7) CAD with stents and CABG - continue asa - lipitor, lisinorpil, and coreg - cardiology following 8) Parkinson - continue sinemet 9) Seizure disorder - continue with primidone 10) Depression/anxiety - Psych followng - continue antidepressant and anti-anxiolytics as per psych. 11) h/o DVT - INR 2.24, will stop heparin drip and continue coumadin 10 mg. 12) CHF/arrhythmias - continue amiodorone 13) DVT and Gi prophylaxis: Coumadin and protonix. Patient seen examined, case discussed with the attending. <Alexey Morton - Last Filed: 09/01/16 18:56> Objective - Vital Signs/Intake and Output Vital Signs (last 24 hours): Temp Pulse Resp BP Pulse Ox 98.4 F 71 20 174/66 H 98 08/14/16 10:00 08/14/16 10:12 08/14/16 10:00 08/14/16 10:12 08/14/16 12:37 - Labs Labs: 08/14/16 05:30 08/14/16 05:30 PT 54.8 Seconds (9.9-11.8) H* 08/14/16 05:30 INR 5.07 (0.93-1.08) H* 08/14/16 05:30 APTT 45.3 Seconds (23.7-30.8) H 08/12/16 08:16 Attending/Attestation - Attestation I have personally seen and examined this patient.: Yes I have fully participated in the care of the patient.: Yes I have reviewed all pertinent clinical information, including history, physical exam and plan: Yes Notes (Text): 09/01/16 18:56 Medical record note made by the resident after discussion with my direction and input after the patient was personally seen and examined by me. I have reviewed the chart and agree that the record accurately reflects by personal performance of the history, physical exam, data review, and medical decision-making, in the course for the patient. I have also personally directed the plan of care.
[2016-08-12] MEDS: Insulin Lispro (humaLOG) LOW Coverage SC SCH ×4 (07:30→22:04)
--- NOTE | 2016-08-12 07:34 | PN ---
DATE: 08/12/2016 SUBJECTIVE: The patient appears very comfortable this morning. She is not short of breath at rest. OBJECTIVE: VITAL SIGNS: Temperature is 98.8, pulse 57, respirations 19, blood pressure 155 /67. Oxygen saturation on room air is 98%. HEENT: Normocephalic, atraumatic. No JVD. CARDIOVASCULAR: Positive S1, S2. No S3. LUNGS: Improved breath sounds at the bases. Much less/minimal rhonchi. No wheezing. EXTREMITIES: The patient is status post right BKA. Left lower extremity shows mild edema. The left calf is nontender to palpation. There is no cyanosis or clubbing. GASTROINTESTINAL: Abdomen is soft, nontender, nondistended. Bowel sounds are positive. SKIN: No acute rash. NEUROLOGIC: Limited at the present time. IMPRESSION: 1. Left lingular pneumonia. 2. Sepsis syndrome - resolving. 3. Mild anemia. 4. Coronary artery disease. 5. Diabetes mellitus. PLAN: The patient appears very comfortable this morning. She is not short of breath at rest. She states she is feeling much, much better overall. She is asking to go home. On physical exam, her bronchospasm continues to resolve. In addition, the alveolar arterial gradient also continues to resolve. Oxygen saturation on room air is now 98%. I will continue with the current nebulizer treatments for now. I will also change to oral steroids this morning. I would continue with the antibiotic coverage as per infectious disease. Temperatures have completely resolved. There is no leukocytosis. Cardiology evaluation is also noted. Clinical status of the patient is significantly improved - compared to last week. However, the overall status/prognosis - for this patient with multiple medical problems - does remain guarded. I will discuss the above with the attending physician later this morning. Mart Chacon MD cc: [phone] TT: 08/12/2016 07:34:12 Confirmation # [id number] Dictation # [id number] keagan YUAN
--- NOTE | 2016-08-12 07:52 | PN ---
DATE: 08/12/2016 SUBJECTIVE: The patient has no complaints of any chest pain, no shortness of breath, no headaches, n o dizziness. PHYSICAL EXAMINATION: VITAL SIGNS: Temperature is 98.8, pulse of 57, blood pressure is 155/67, respirations 19. GENERAL: The patient comfortable, in no acute distress. HEENT: Anicteric sclerae. Moist mucosa. NECK: No JVD or adenopathy. CARDIAC: S1/S2. No murmurs. No rubs. Regular. RESPIRATORY: Clear to auscultation bilaterally. No wheezes, rales, or rhonchi. Good air entry. ABDOMEN: Bowel sounds are positive, soft, nontender, and nondistended. EXTREMITIES: No edema. Has 1+ pulses. LABORATORIES: White count of 9.0, hemoglobin 10.8. Creatinine is 3.9. ASSESSMENT: 1. End-stage renal disease, on hemodialysis. 2. Coronary artery disease with stenting. 3. Hypertension. 4. Parkinson's. 5. Diabetes type 2. 6. Diverticulosis. 7. Peripheral arterial disease. 8. Gastroesophageal reflux disease. 9. Antiphospholipid antibodies, on Coumadin. 10. Left arm fistula. 11. Left renal cyst. PLAN: The patient is currently comfortable. She is continuing on hemodialysis. She is on carvedilo l. She is going to be on clonidine for hypertension. She is on amiodarone. She is on Coumadin for her anticoagulation. She is on doxycycline for antibiotics. The patient is on insulin for her diabe nba. She is on Neurontin for her neuropathy. She is on Renagel for her secondary hyperparathyroidis m. She is on lisinopril for hypertension. She is on a renal diet. Bebo Eller MD cc: [id number] TT: 08/12/2016 07:51:04 Confirmation # [id number] Dictation # [id number] en
--- NOTE | 2016-08-12 08:30 | PN ---
DATE: 08/10/2016 HISTORY OF PRESENT ILLNESS: The patient is a 66-year-old female who was admitted for a pro ductive cough, shortness of breath, weakness. She was found to have hospital-acquired pneumonia. Cu rrently she is being followed psychiatrically due a long history of recurrent depression, sever e anxiety and psychosis in the past. Currently, the patient's mental status reveals that she is awak e and alert. She has an intermittent tremor in her left and right hand. At times there is no tremor and other times through the conversation there is a tremor. The patient states she gets somewhat an xious and that precipitates a tremor. The patient, however, is awake, alert, oriented x 3. Her rece nt memory is mostly intact. Intermediate and remote memory is slightly impaired. The patient is jammie re of the fact that she has being treated for pneumonia. She knows she has other medical problems in cluding kidney problems. The patient denies being depressed or any suicidal ideation or psychotic sy mptoms since coming into the hospital. She does complain of anxiety, worry, specifically about her celia albarado who has a malignancy and also has appropriate concerns about her other physical problems. Th e patient is oriented x 3. CURRENT MEDICATIONS: Include Apresoline, Catapres, Cordarone, Coreg, Coumadin, doxycycline, DuoNeb t reatments, Ecotrin, heparin, Humalog insulin and protocol, Levemir, Lexapro 10 mg daily, Lipitor, Max ipime IM. She is receiving Renagel, Protonix, Santyl, Sinemet 10/100 one tablet t.i.d., Solu-Medrol 40 mg q.12 hours, Xanax 0.25 mg b.i.d., which was started yesterday and Zestril. LABORATORY DATA: Reveals a white count of 9200, hemoglobin is 10.6, platelet count 148,000. Her met abolic profile is significant for a sodium of 127, potassium 4.6, chloride 91, CO2 of 21, anion gap 2 0, BUN 67 and creatinine is 5.1. Estimated GFR of 8, random glucose of 382. The patient reportedly had a bone scan earlier today, results are not available. REVIEW OF SYSTEMS: The patient reports no chest pain. She does have slight shortness of breath, no nausea, vomiting, diarrhea or headaches. Complains of being anxious at times. VITAL SIGNS: Her blood pressure is 140/80, pulse 59. She is afebrile. The patient's O2 saturation on room air is 97%. IMPRESSION: The patient has acute pneumonia. She has a history of severe chronic kidney disease on hemodialysis, history of recurrent major depression, significant generalized anxiety, preferable esse ntial tremor. The patient has a history of hypertension, coronary artery disease. She has had stent s. She has had coronary artery bypass graft. She has a history of myocardial infarctions. The taya ent has insulin-dependent diabetes mellitus. PLAN: We will continue Xanax 0.25 mg b.i.d., Lexapro 10 mg p.o. at bedtime. Would also feel if the patient, in view of the fact, the patient should also be given a trial of increasing her dose of prim idone to 50 mg daily and 50 mg at bedtime. We will continue to monitor mental status. Primidone for severe essential tremor. Neil Wiggins MD cc: [id number] TT: 08/10/2016 18:10:33 Confirmation # [id number] Dictation # [id number] deb
[2016-08-12 08:42] LABS: CALCIUM 9.6 mg/dL (8.4-10.5); POTASSIUM 5.2 mmol/L (3.6-5.0)
[2016-08-12 08:53] LABS: INR 2.24 (0.93-1.08)
--- NOTE | 2016-08-12 09:00 | CON ---
DATE: 08/09/2016 The patient was seen earlier today in 269, bed 2. CHIEF COMPLAINT: Weakness and shortness of breath times several days. HISTORY OF PRESENT ILLNESS: This is a 66-year-old female with past medical history significant for d iabetes mellitus, high cholesterol, hypertension, arthritis, history of acute kidney injury, chronic renal failure on hemodialysis, history of left AVF, history of right big toe amputation, , k nee surgery, small bowel surgery in 08/2011 and history of thromboembolectomy, bypass, angioplasty and now has a dialysis catheter on the right chest, who was admitted through the Emergency Room. The pa jacques was seen by Dr. Alejo Arevalo and patient had been having shortness of breath and cold and c ongestion and with active productive cough and whitish in color. The patient states she had low-grad e fevers, but no nausea, no vomiting. She did not have any chills. No abdominal pain, diarrhea or c onstipation. No bright red blood per rectum, no melena. PAST MEDICAL HISTORY: Significant for diabetes mellitus, hypertension, chronic renal failure on hemo dialysis, arthritis, high cholesterol and cataracts. PAST SURGICAL HISTORY: Significant for right below knee amputation, dialysis catheter in the right c hest, history of a left AVF and history of right big toe amputation, , knee surgery, small b owel surgery in 08/2011 and vascular surgery. ALLERGIES: THE PATIENT IS ALLERGIC TO CIPRO, CLARITHROMYCIN AND PEPPER. MEDICATIONS: At home include the patient to be on Apresoline and Norvasc and Coumadin, Zoloft, Thang nix, Zestril and insulin, Lexapro, Neurontin, and amiodarone. PHYSICAL EXAMINATION: GENERAL: The patient is in bed. VITAL SIGNS: Temperature of 99.8 and a heart rate of 59, yesterday it was up to 154, respiratory rat e of 20, blood pressure of 201/76. HEENT: Unremarkable. NECK: Supple. LUNGS: Have decreased breath sounds. HEART: Normal S1, S2. ABDOMEN: Soft, nontender, no organomegaly, no rebound, no guarding, no masses. LABORATORY EXAMINATION: Reveals a white count of 5.4, hemoglobin of 10, platelets of 146. Chemistri es reveals the BUN of 39, creatinine of 4.1. The BNP is 69,600. Consultation with Dr. Eller is reviewed. progress note is reviewed. Dr. Alexey Morton 's history and physical examination is reviewed. Chest x-ray: Probable linear atelectasis of the right base, no infiltrate. ASSESSMENT AND PLAN: A 66-year-old female with diabetes mellitus, high cholesterol, hypertension, ar thritis, renal failure on hemodialysis, history of deep venous thrombosis, Parkinson's, seizures, ant iphospholipid syndrome, now on exam had a left heel dry ulcer and no discharge and pulses are intact. Must rule out underlying osteomyelitis and progression of peripheral vascular disease. At this poi nt, no evidence of infection at the heel ulcer. Recommend a podiatric and vascular evaluation. Will order a bone scan to rule out osteomyelitis since the patient has a catheter, unable to tolerate MRI of the foot. Will hold off on any antibiotics at this point pending podiatry and vascular evaluatio n for the left heel ulcer. Will also order a sed rate and C-reactive protein. ASSESSMENT AND PLAN: A 66-year-old female with diabetes and high cholesterol, hypertension, arthriti s, acute kidney injury in the past with chronic renal failure on hemodialysis at this time with a hung p venous thrombosis, Parkinson's, seizures, antiphospholipid syndrome. Now with a left heel ulcer, m ust rule out underlying osteomyelitis. Will order bone scan, sed rate, C-reactive protein and will h old off any antibiotic therapy and would recommend podiatry and vascular evaluation. The patient is currently placed on antibiotics for possible congestive heart failure, volume overload, must rule out underlying pneumonia. Will order a CAT scan of the chest to resolve that issue and will follow ritu cristina with you. Elijah Stuart MD cc: [id number] TT: 08/09/2016 12:39:35 Confirmation # [id number] Dictation # [id number]
[2016-08-12 09:32] LABS: BILIRUBIN,TOTAL 0.7 mg/dL (0.2-1.3)
[2016-08-12 09:49] LABS: HEMATOCRIT 32.9 % (36.0-48.0); MEAN CELL VOLUME 83.9 fL (80.0-105.0); MEAN CORPUSCULAR HGB CONC 32.2 g/dl (31.0-37.0); MEAN PLATELET VOLUME 11.8 fl (7.0-11.0); RED CELL DISTRIBUTION WIDTH 18.3 % (11.5-14.5); WHITE BLOOD COUNT 7.7 10^3/ul (4.5-11.0)
--- NOTE | 2016-08-12 10:05 | CP.PCM.PN ---
Subjective - Date & Time of Evaluation Date of Evaluation: 08/12/16 Time of Evaluation: 07:00 - Subjective Subjective: Stable on 2R. No CP or SOB. V/S noted. RSR/S. Humberto PE; Lungs: rhonchi Cor.: S1S2 Abd.: soft Ext.: Rt. BKA. no edema Neuro.: alert I/O= 2458/100 Labs noted: INR= 2.24 BC x2 NG at 3 days Objective - Vital Signs/Intake and Output Vital Signs (last 24 hours): Temp Pulse Resp BP Pulse Ox 98.8 F 57 L 19 155/67 H 98 08/12/16 06:00 08/12/16 06:00 08/12/16 06:00 08/12/16 06:00 08/12/16 06:00 Intake and Output: 08/12/16 08/12/16 06:59 18:59 Intake Total 878 Output Total 0 Balance 878 - Medications Medications: Current Medications Albuterol/Ipratropium (Duoneb 3 Mg/0.5 Mg (3 Ml) Ud) 3 ml IH [id number] [facility] Last Admin: 08/12/16 08:15 Dose: 3 ml Alprazolam (Xanax) 0.25 mg PO BID [facility] Stop: 08/16/16 18:01 Last Admin: 08/11/16 18:45 Dose: 0.25 mg Amiodarone HCl (Cordarone) 200 mg PO DAILY [facility] Last Admin: 08/11/16 10:19 Dose: Not Given Amlodipine Besylate (Norvasc) 10 mg PO DAILY [facility] Last Admin: 08/11/16 10:18 Dose: 10 mg Aspirin (Ecotrin) 81 mg PO DAILY [facility] Last Admin: 08/11/16 10:17 Dose: 81 mg Atorvastatin Calcium (Lipitor) 80 mg PO DIN [facility] Last Admin: 08/11/16 18:25 Dose: 80 mg Carbidopa/Levodopa (Sinemet 10/100) 1 tab PO TID [facility] Last Admin: 08/11/16 18:45 Dose: 1 tab Carvedilol (Coreg) 3.125 mg PO Q12 [facility] Last Admin: 08/11/16 21:31 Dose: Not Given Clonidine HCl (Catapres) 0.3 mg PO BID [facility] Last Admin: 08/11/16 18:26 Dose: 0.3 mg Collagenase (Santyl) 0 gm TOP DAILY [facility] Last Admin: 08/11/16 10:22 Dose: 1 tcp Doxycycline Hyclate (Doryx) 100 mg PO Q12 [facility] PRN Reason: Protocol Last Admin: 08/11/16 21:35 Dose: 100 mg Escitalopram Oxalate (Lexapro) 10 mg PO DAILY [facility] Last Admin: 08/11/16 10:16 Dose: 10 mg Gabapentin (Neurontin) 100 mg PO BID [facility] PRN Reason: Protocol Last Admin: 08/11/16 18:45 Dose: 100 mg Guaifenesin/Dextromethorphan (Robitussin Dm) 5 ml PO Q4H PRN PRN Reason: Cough Last Admin: 08/11/16 10:15 Dose: 5 ml Hydralazine HCl (Apresoline) 50 mg PO BID [facility] Last Admin: 08/11/16 18:25 Dose: 50 mg Cefepime HCl (Maxipime 1gm) 1 gm in 100 mls @ 200 mls/hr IVPB Q24H [facility] Last Admin: 08/11/16 16:05 Dose: 200 mls/hr Heparin Sodium/Sodium Chloride (Heparin 39184 Units/250ml 1/2 Normal Saline) 25 ,000 units in 250 mls @ 12.247 mls/hr IV .[id number] PRN; Protocol; 18 UNITS/KG/HR PRN Reason: ADJUST RATE PER PROTOCOL Last Titration: 08/12/16 02:16 Dose: 9.78 units/kg/hr, 6.654 mls/hr Insulin Detemir (Levemir) 8 unit SC BID [facility] Last Admin: 08/11/16 18:24 Dose: 8 unit Insulin Human Lispro (Humalog) 2 units SC ACHS [facility] Last Admin: 08/11/16 21:33 Dose: Not Given Insulin Human Lispro (Humalog Low) 0 units SC ACHS [facility] Last Admin: 08/11/16 21:33 Dose: Not Given Lisinopril (Zestril) 80 mg PO DAILY [facility] Last Admin: 08/11/16 10:16 Dose: 80 mg Pantoprazole Sodium (Protonix Ec Tab) 40 mg PO DAILY [facility] Last Admin: 08/11/16 10:52 Dose: 40 mg Prednisone (Prednisone Tab) 30 mg PO DAILY [facility] Primidone (Mysoline) 50 mg PO DAILY [facility] Last Admin: 08/11/16 10:16 Dose: 50 mg Primidone (Mysoline) 50 mg PO HS [facility] Sevelamer HCl (Renagel) 800 mg PO TID [facility] Last Admin: 08/11/16 18:45 Dose: 800 mg Warfarin Sodium (Coumadin) 10 mg PO 1800 [facility] PRN Reason: Protocol Last Admin: 08/11/16 18:25 Dose: 10 mg Zinc Sulfate (Zinc Sulfate 220 Mg Cap) 220 mg PO DAILY [facility] Last Admin: 08/11/16 10:18 Dose: 220 mg - Labs Labs: 08/12/16 08:16 08/12/16 08:16 PT 24.2 Seconds (9.9-11.8) H 08/12/16 08:20 INR 2.24 (0.93-1.08) H 08/12/16 08:20 APTT 45.3 Seconds (23.7-30.8) H 08/12/16 08:16 Assessment and Plan - Assessment and Plan (Free Text) Plan: Assessment: Cough/SOB/Weak Pneumonia CAD/CABG 03/15 with sternal wound infection post op. CKD/HD HBP Diabetes PVD/Rt. BKA/Toe amp. Antiphospholipid Syndrome/DVT/Peripheral emboli Anxiety/Depression Parkinson's Disease GERD Seizure Disorder Left heel ulceration Plan: As per ID, Renal, Podiatry, Psych., Pulm. AB HD Continue cardiac meds. Warfarin by INR's daily. OOB to chair as nkechi. Can D/C tel.
[2016-08-12] MEDS: Insulin Lispro 1 UNITS/0.01 ML SC SCH ×4 (10:39→22:03)
[2016-08-12] MEDS: Insulin Detemir 100 units/ml Vial (Levemir) SC SCH ×2 (10:41→17:33)
[2016-08-12] MEDS: Pantoprazole 40 mg EC Tab PO SCH (10:44)
--- NOTE | 2016-08-12 12:20 | PN ---
DATE: 08/12/2016 HISTORY OF PRESENT ILLNESS: The patient is a 66-year-old white female. I reviewed the chart, spoke to nursing staff. The patient has been treated for a nosocomial pneumonia. She has a history of rec urrent depression with psychoses in the past. She has chronic kidney disease, on hemodialysis. PHYSICAL EXAMINATION: The patient's mental status today reveals she is awake, alert, coherent, much less anxious. Oriented x 3. Recent memory mildly to moderately impaired. Denies depression, suicidal ideations or hallucinations. I spoke with nursing staff. The patient apparently is going to be discharged today to home. CURRENT MEDICATIONS: Include Apresoline, Catapres, Cordarone, Coreg, Coumadin, Doryx, DuoNeb treatme nts, Ecotrin, insulin, Levemir, Lexapro 10 mg q.a.m., Lipitor 80 mg daily, Maxipime IV, primidone 50 mg in a.m. and at bedtime, gabapentin, Norvasc, prednisone 30 mg daily, Protonix, Santyl, Sinemet, Xa nax 0.25 mg b.i.d. and Zestril and zinc sulfate. CURRENT LABORATORY DATA: White count 7700, hemoglobin of 10.6, platelet count 156,000. Metabolic pr ofile: Sodium 127, potassium 5.2, chloride 90, CO2 of 21, anion gap 21, BUN of 65, creatinine 5.0. Estimated GFR 9. Random glucose 257. Alk phos 136. AST, ALT, total bilirubin normal. VITAL SIGNS: Blood pressure is 185/73, pulse 83, respirations 18 per minute and afebrile. IMPRESSION: Resolving pneumonia. She has history of recurrent major depression, generalized anxiety . She has an ongoing chronic kidney disease, hemodialysis, hyponatremia. She has history of right b elow-knee amputation, hypertension. She has a gait dysfunction, past history of delirium. The patie nt has coronary artery disease, insulin-dependent diabetes mellitus, essential tremor. She has histo ry of cardiac arrhythmias, history of essential tremor. She is on anticoagulants. PLAN: Continue Xanax 0.25 mg b.i.d., Lexapro 10 mg q.a.m. We will monitor mental status. Have dial ysis treatments. Continue primidone 50 mg a.m. and at bedtime. Neil Wiggins MD cc: [id number] TT: 08/12/2016 12:20:28 Confirmation # [id number] Dictation # [id number]
--- NOTE | 2016-08-12 15:36 | CP.PCM.DIS ---
Provider - Provider Date of Admission: 08/08/16 14:53 Attending physician: Wm Aguirre MD Time Spent in preparation of Discharge (in minutes): 50 Diagnosis - Discharge Diagnosis (1) Hospital acquired PNA Status: Acute (2) ESRD on dialysis Status: Chronic (3) Diabetic foot ulcer Status: Acute (4) Bradycardia Status: Acute (5) Diabetes Status: Acute (6) Hypertension Status: Acute (7) Sepsis Status: Acute Hospital Course - Lab Results Lab Results: Most Recent Lab Values WBC 7.7 10^3/ul (4.5-11.0) 08/12/16 08:16 RBC 3.92 10^6/uL (3.5-6.1) 08/12/16 08:16 Hgb 10.6 gm/dL (12.0-16.0) L 08/12/16 08:16 Hct 32.9 % (36.0-48.0) L 08/12/16 08:16 MCV 83.9 fL (80.0-105.0) 08/12/16 08:16 MCH 27.0 pg (25.0-35.0) 08/12/16 08:16 MCHC 32.2 g/dl (31.0-37.0) 08/12/16 08:16 RDW 18.3 % (11.5-14.5) H 08/12/16 08:16 Plt Count 156 10^3/uL (120.0-450.0) 08/12/16 08:16 MPV 11.8 fl (7.0-11.0) H 08/12/16 08:16 Gran % 89.5 % (50.0-68.0) H 08/11/16 07:00 Lymph % (Auto) 8.6 % (22.0-35.0) L 08/11/16 07:00 Lewis % (Auto) 1.9 % (1.0-6.0) 08/11/16 07:00 Eos % (Auto) 0.0 % (1.5-5.0) L 08/11/16 07:00 Baso % (Auto) 0.0 % (0.0-3.0) 08/11/16 07:00 Gran # 8.07 (1.4-6.5) H 08/11/16 07:00 Lymph # 0.8 (1.2-3.4) L 08/11/16 07:00 Lewis # 0.2 (0.1-0.6) 08/11/16 07:00 Eos # 0.0 (0.0-0.7) 08/11/16 07:00 Baso # 0.00 K/mm3 (0.0-2.0) 08/11/16 07:00 ESR 29 mm/hr (0.0-20.0) H 08/09/16 06:00 PT 24.2 Seconds (9.9-11.8) H 08/12/16 08:20 INR 2.24 (0.93-1.08) H 08/12/16 08:20 APTT 45.3 Seconds (23.7-30.8) H 08/12/16 08:16 pO2 55 mm/Hg (30-55) 08/08/16 10:45 VBG pH 7.34 (7.32-7.43) 08/08/16 10:45 VBG pCO2 50.0 (40-60) 08/08/16 10:45 VBG HCO3 27.0 mmol/l (21-28) 08/08/16 10:45 VBG Total CO2 28.5 mmol.L (22-28) H 08/08/16 10:45 VBG O2 Sat (Calc) 87.7 % (40-65) H 08/08/16 10:45 VBG Base Excess 0.5 mmol/L (0.0-2.0) 08/08/16 10:45 VBG Potassium 5.6 mmol/L (3.6-5.2) H 08/08/16 10:45 Sodium 131.0 mmol/L (132-148) L 08/08/16 10:45 Chloride 98.0 mmol/L (98-107) 08/08/16 10:45 Glucose 105 mg/dl (65-105) 08/08/16 10:45 Lactate 1.7 mmol/L (0.7-2.1) 08/08/16 10:45 FiO2 21.0 % 08/08/16 10:45 Sodium 127 mmol/L (132-148) L 08/12/16 08:16 Potassium 5.2 mmol/L (3.6-5.0) H 08/12/16 08:16 Chloride 90 mmol/L (98-107) L 08/12/16 08:16 Carbon Dioxide 21 mmol/L (21-33) 08/12/16 08:16 Anion Gap 21 (10-20) H 08/12/16 08:16 BUN 65 mg/dL (7-21) H 08/12/16 08:16 Creatinine 5.0 mg/dL (0.5-1.4) H 08/12/16 08:16 Est GFR ( Amer) 10 08/12/16 08:16 Est GFR (Non-Af Amer) 9 08/12/16 08:16 POC Glucose (mg/dL) 275 mg/dL (65-110) H 08/09/16 07:30 Random Glucose 257 mg/dL (70-110) H 08/12/16 08:16 Calcium 9.6 mg/dL (8.4-10.5) 08/12/16 08:16 Phosphorus 4.2 mg/dL (2.5-4.5) 08/09/16 06:00 Magnesium 2.2 mg/dL (1.7-2.2) 08/09/16 06:00 Total Bilirubin 0.7 mg/dL (0.2-1.3) 08/12/16 08:16 AST 17 U/L (15-39) 08/12/16 08:16 ALT 19 U/L (7-56) 08/12/16 08:16 Alkaline Phosphatase 136 U/L (38-133) H 08/12/16 08:16 Troponin I 0.08 ng/mL 08/09/16 07:30 C-React Prot High Sens > 15.00 mg/L (1.00-3.00) H 08/09/16 06:00 NT-Pro-B Natriuret Pep 03141 pg/mL (0-450) H 08/08/16 10:45 Total Protein 7.0 g/dL (5.8-8.3) 08/12/16 08:16 Albumin 3.5 g/dL (3.0-4.8) 08/12/16 08:16 Globulin 3.5 gm/dL 08/12/16 08:16 Albumin/Globulin Ratio 1.0 (1.1-1.8) L 08/12/16 08:16 Procalcitonin 0.13 NG/ML (0.19-0.49) L 08/09/16 06:00 TSH 3rd Generation 0.81 mIU/mL (0.46-4.68) 08/09/16 06:00 Venous Blood Potassium 5.6 mmol/L (3.6-5.2) H 08/08/16 10:45 - Date & Time of H&P Date of H&P: 08/08/16 Time of H&P: 15:50 Discharge Exam - Head Exam Head Exam: ATRAUMATIC, NORMAL INSPECTION, NORMOCEPHALIC - Eye Exam Eye Exam: EOMI, Normal appearance, PERRL. absent: Scleral icterus Discharge Plan - Discharge Medications Prescriptions: ALPRAZolam [Xanax] 0.25 mg PO BID #20 tab Atorvastatin [Lipitor] 80 mg PO DIN #30 tab Carvedilol [Coreg] 3.125 mg PO Q12 #30 tab hydrALAZINE [Apresoline] 100 mg PO Q8H #90 tab Lisinopril [Zestril] 80 mg PO DAILY #30 tab Methylprednisolone [Medrol Dose Pack (21 tabs)] 4 mg PO DAILY #21 mg Warfarin [Coumadin] 10 mg PO 1800 #1 - Follow Up Plan Condition: GUARDED Disposition: HOME/ ROUTINE Patient education suggested?: Yes Additional Instructions: Please take 10 mg coumadin tomorrow at 6pm Follow up with Dr Morton in the clinic on Friday to monitor your INR Follow up with Dr Eller for your dialysis Take the medrol dose pack as prescribed Take the antibiotic as prescribed Referrals: Alexey Morton MD [Family Provider] - Bebo Eller MD [Staff Provider] - Alistair De La Rosa MD [Staff Provider] - Elmira Issa DPM [Staff Provider] -
--- NOTE | 2016-08-12 16:20 | NM ---
PROCEDURE: Whole Body Bone Scan HISTORY: r/o left heal osteo COMPARISON: 08/09/2016. TECHNIQUE: Following administration of 26.9 miCu of Tc MDP multiplanar whole body images were obtained. FINDINGS: Flow component: Increased flow to the left lower extremity including the calcaneus. Blood pool component: Accumulation of radionuclide left calcaneus Delayed images at 3:00: Intense retention of radionuclide in the calcaneus best seen on the plantar views. IMPRESSION: Positive three-phase bone scan for acute osteomyelitis left calcaneus.
--- NOTE | 2016-08-12 17:19 | CP.PCM.PN ---
Subjective - Date & Time of Evaluation Date of Evaluation: 08/12/16 Time of Evaluation: 11:10 - Subjective Subjective: Comfortable in bed, no fevers overnight. Undergoing Bone scan today. Objective - Vital Signs/Intake and Output Vital Signs (last 24 hours): Temp Pulse Resp BP Pulse Ox 98 F 56 L 20 191/79 H 98 08/12/16 12:00 08/12/16 14:00 08/12/16 12:00 08/12/16 12:00 08/12/16 06:00 Intake and Output: 08/12/16 08/12/16 06:59 18:59 Intake Total 878 Output Total 0 Balance 878 - Medications Medications: Current Medications Albuterol/Ipratropium (Duoneb 3 Mg/0.5 Mg (3 Ml) Ud) 3 ml IH [id number] [facility] Last Admin: 08/12/16 15:44 Dose: Not Given Alprazolam (Xanax) 0.25 mg PO BID [facility] Stop: 08/16/16 18:01 Last Admin: 08/12/16 10:44 Dose: 0.25 mg Amiodarone HCl (Cordarone) 200 mg PO DAILY [facility] Last Admin: 08/12/16 10:29 Dose: 200 mg Amlodipine Besylate (Norvasc) 10 mg PO DAILY [facility] Last Admin: 08/12/16 10:43 Dose: 10 mg Aspirin (Ecotrin) 81 mg PO DAILY [facility] Last Admin: 08/12/16 10:38 Dose: 81 mg Atorvastatin Calcium (Lipitor) 80 mg PO DIN [facility] Last Admin: 08/11/16 18:25 Dose: 80 mg Carbidopa/Levodopa (Sinemet 10/100) 1 tab PO TID [facility] Last Admin: 08/12/16 15:00 Dose: 1 tab Carvedilol (Coreg) 3.125 mg PO Q12 [facility] Last Admin: 08/12/16 10:37 Dose: 3.125 mg Clonidine HCl (Catapres) 0.3 mg PO BID [facility] Last Admin: 08/12/16 10:28 Dose: 0.3 mg Collagenase (Santyl) 0 gm TOP DAILY [facility] Last Admin: 08/11/16 10:22 Dose: 1 tcp Doxycycline Hyclate (Doryx) 100 mg PO Q12 [facility] PRN Reason: Protocol Last Admin: 08/12/16 10:38 Dose: 100 mg Escitalopram Oxalate (Lexapro) 10 mg PO DAILY [facility] Last Admin: 08/12/16 10:41 Dose: 10 mg Gabapentin (Neurontin) 100 mg PO BID [facility] PRN Reason: Protocol Last Admin: 08/12/16 10:42 Dose: 100 mg Guaifenesin/Dextromethorphan (Robitussin Dm) 5 ml PO Q4H PRN PRN Reason: Cough Last Admin: 08/11/16 10:15 Dose: 5 ml Hydralazine HCl (Apresoline) 100 mg PO Q8H [facility] Last Admin: 08/12/16 10:00 Dose: 100 mg Cefepime HCl (Maxipime 1gm) 1 gm in 100 mls @ 200 mls/hr IVPB Q24H [facility] Last Admin: 08/11/16 16:05 Dose: 200 mls/hr Insulin Detemir (Levemir) 10 unit SC BID [facility] Insulin Human Lispro (Humalog) 2 units SC ACHS [facility] Last Admin: 08/12/16 11:55 Dose: 2 units Insulin Human Lispro (Humalog Low) 0 units SC ACHS [facility] Last Admin: 08/12/16 11:55 Dose: 3 units Lisinopril (Zestril) 80 mg PO DAILY [facility] Last Admin: 08/12/16 10:45 Dose: 80 mg Pantoprazole Sodium (Protonix Ec Tab) 40 mg PO DAILY [facility] Last Admin: 08/12/16 10:44 Dose: 40 mg Prednisone (Prednisone Tab) 30 mg PO DAILY [facility] Last Admin: 08/12/16 10:43 Dose: 30 mg Primidone (Mysoline) 50 mg PO DAILY [facility] Last Admin: 08/12/16 10:42 Dose: 50 mg Primidone (Mysoline) 50 mg PO HS [facility] Sevelamer HCl (Renagel) 800 mg PO TID [facility] Last Admin: 08/12/16 15:00 Dose: 800 mg Warfarin Sodium (Coumadin) 10 mg PO 1800 [facility] PRN Reason: Protocol Last Admin: 08/11/16 18:25 Dose: 10 mg Zinc Sulfate (Zinc Sulfate 220 Mg Cap) 220 mg PO DAILY [facility] Last Admin: 08/12/16 12:57 Dose: 220 mg - Labs Labs: 08/12/16 08:16 08/12/16 08:16 PT 24.2 Seconds (9.9-11.8) H 08/12/16 08:20 INR 2.24 (0.93-1.08) H 08/12/16 08:20 APTT 45.3 Seconds (23.7-30.8) H 08/12/16 08:16 - Constitutional Appears: Non-toxic, No Acute Distress - Head Exam Head Exam: NORMAL INSPECTION - Respiratory Exam Respiratory Exam: Decreased Breath Sounds - Cardiovascular Exam Cardiovascular Exam: +S1, +S2 - GI/Abdominal Exam GI & Abdominal Exam: Soft. absent: Tenderness - Extremities Exam Additional comments: left heel with dressings in place Assessment and Plan - Assessment and Plan (Free Text) Plan: Assessment Sepsis due to left sided healthcare-associated pneumonia, clinically improving Left heel ulcer with evidence of acute osteomyelitis on bone scan ESRD on HD CAD S/P CABG chronic CHF DM history of anti-phospholipid antibody syndrome S/P right below the knee amputation Plan Continue Cefepime and Doxycycline (day 5); will follow up Podiatry evaluation and recommendations for the acute osteomyelitis before we recommend antibiotics - would need 4-6 weeks of antibiotics unless all of the osteomyelitis is removed Will monitor clinically
[2016-08-12] MEDS: Cefepime 1gm in NS 100ml 1 GM/100 ML BAG IVPB SCH (17:41)
[2016-08-12] MEDS: Collagenase 250 Units/gm Ointment(30 gm) TOP SCH (19:15)
[2016-08-13] MEDS: Albuterol-Ipratrop 3 mg / 0.5 (3 ml) UD IH SCH ×2 (03:30→08:04)
[2016-08-13 06:44] VITALS: O2SAT 98
--- NOTE | 2016-08-13 06:45 | CP.PCM.PN ---
<Angelica Dominguez - Last Filed: 08/13/16 13:08> Subjective - Date & Time of Evaluation Date of Evaluation: 08/13/16 Time of Evaluation: 07:40 - Subjective Subjective: Medicine progress note for Dr Aguirre and Dr Morton service. Patient with no overnight events. Patient's respiratory status continues to improve. Patient denies cp, sob, headache, n/v/d. Patient requesting to go home , explained to the patient the reason why she needs to remain inhouse until ID figure out what antibiotics she need for her osteomyolitis. Objective - Vital Signs/Intake and Output Vital Signs (last 24 hours): Temp Pulse Resp BP Pulse Ox 98.3 F 54 L 20 140/70 98 08/13/16 06:00 08/13/16 06:00 08/13/16 06:00 08/13/16 06:00 08/13/16 06:00 Intake and Output: 08/12/16 08/13/16 18:59 06:59 Intake Total 480 Output Total 0 Balance 480 - Medications Medications: Current Medications Albuterol/Ipratropium (Duoneb 3 Mg/0.5 Mg (3 Ml) Ud) 3 ml IH [id number] [facility] Last Admin: 08/12/16 19:53 Dose: 3 ml Alprazolam (Xanax) 0.25 mg PO BID [facility] Stop: 08/16/16 18:01 Last Admin: 08/12/16 17:35 Dose: 0.25 mg Amiodarone HCl (Cordarone) 200 mg PO DAILY [facility] Last Admin: 08/12/16 10:29 Dose: 200 mg Amlodipine Besylate (Norvasc) 10 mg PO DAILY [facility] Last Admin: 08/12/16 10:43 Dose: 10 mg Aspirin (Ecotrin) 81 mg PO DAILY [facility] Last Admin: 08/12/16 10:38 Dose: 81 mg Atorvastatin Calcium (Lipitor) 80 mg PO DIN [facility] Last Admin: 08/12/16 17:34 Dose: 80 mg Carbidopa/Levodopa (Sinemet 10/100) 1 tab PO TID [facility] Last Admin: 08/12/16 19:19 Dose: 1 tab Carvedilol (Coreg) 3.125 mg PO Q12 [facility] Last Admin: 08/12/16 22:02 Dose: 3.125 mg Clonidine HCl (Catapres) 0.3 mg PO BID [facility] Last Admin: 08/12/16 17:30 Dose: 0.3 mg Collagenase (Santyl) 0 gm TOP DAILY [facility] Last Admin: 08/12/16 19:15 Dose: Not Given Doxycycline Hyclate (Doryx) 100 mg PO Q12 [facility] PRN Reason: Protocol Last Admin: 08/12/16 22:03 Dose: 100 mg Escitalopram Oxalate (Lexapro) 10 mg PO DAILY [facility] Last Admin: 08/12/16 10:41 Dose: 10 mg Gabapentin (Neurontin) 100 mg PO BID [facility] PRN Reason: Protocol Last Admin: 08/12/16 17:34 Dose: 100 mg Guaifenesin/Dextromethorphan (Robitussin Dm) 5 ml PO Q4H PRN PRN Reason: Cough Last Admin: 08/11/16 10:15 Dose: 5 ml Hydralazine HCl (Apresoline) 100 mg PO Q8H [facility] Last Admin: 08/13/16 05:05 Dose: 100 mg Cefepime HCl (Maxipime 1gm) 1 gm in 100 mls @ 200 mls/hr IVPB Q24H [facility] Last Admin: 08/12/16 17:41 Dose: 200 mls/hr Insulin Detemir (Levemir) 10 unit SC BID [facility] Last Admin: 08/12/16 17:33 Dose: 10 unit Insulin Human Lispro (Humalog) 2 units SC ACHS [facility] Last Admin: 08/12/16 22:03 Dose: 2 units Insulin Human Lispro (Humalog Low) 0 units SC ACHS [facility] Last Admin: 08/12/16 22:04 Dose: 2 units Lisinopril (Zestril) 80 mg PO DAILY [facility] Last Admin: 08/12/16 10:45 Dose: 80 mg Pantoprazole Sodium (Protonix Ec Tab) 40 mg PO DAILY [facility] Last Admin: 08/12/16 10:44 Dose: 40 mg Prednisone (Prednisone Tab) 30 mg PO DAILY [facility] Last Admin: 08/12/16 10:43 Dose: 30 mg Primidone (Mysoline) 50 mg PO DAILY [facility] Last Admin: 08/12/16 10:42 Dose: 50 mg Primidone (Mysoline) 50 mg PO [facility] Sevelamer HCl (Renagel) 800 mg PO TID [facility] Last Admin: 08/12/16 17:35 Dose: 800 mg Warfarin Sodium (Coumadin) 10 mg PO 1800 [facility] PRN Reason: Protocol Last Admin: 08/12/16 17:31 Dose: 10 mg Zinc Sulfate (Zinc Sulfate 220 Mg Cap) 220 mg PO DAILY [facility] Last Admin: 08/12/16 12:57 Dose: 220 mg - Labs Labs: 08/12/16 08:16 08/12/16 08:16 PT 24.2 Seconds (9.9-11.8) H 08/12/16 08:20 INR 2.24 (0.93-1.08) H 08/12/16 08:20 APTT 45.3 Seconds (23.7-30.8) H 08/12/16 08:16 - Constitutional Appears: No Acute Distress, Older Than Stated Age, Chronically Ill - Head Exam Head Exam: ATRAUMATIC, NORMAL INSPECTION, NORMOCEPHALIC - Eye Exam Eye Exam: Normal appearance, PERRL. absent: Scleral icterus - ENT Exam ENT Exam: Normal Exam - Neck Exam Neck Exam: Normal Inspection - Respiratory Exam Respiratory Exam: Clear to Ausculation Bilateral, NORMAL BREATHING PATTERN. absent: Rales, Rhonchi, Wheezes, Respiratory Distress, Stridor - Cardiovascular Exam Cardiovascular Exam: REGULAR RHYTHM, RRR, +S1, +S2 - GI/Abdominal Exam GI & Abdominal Exam: Soft, Normal Bowel Sounds. absent: Distended, Firm, Guarding, Rigid, Tenderness - Extremities Exam Extremities Exam: absent: Pedal Edema - Back Exam Back Exam: NORMAL INSPECTION - Neurological Exam Neurological Exam: Alert, Awake, Oriented x3 - Psychiatric Exam Psychiatric exam: Normal Affect, Normal Mood - Skin Skin Exam: Normal Color, Warm Assessment and Plan - Assessment and Plan (Free Text) Assessment: Patient is a 66 yo with multiple comorbidities admitted with HAP, now found to have osteomyolitis of the left calcaneus. Plan: 1) Osteomyolitis of the left calcaneus - Pending wound culture - pending ID - on broadspectrum antibiotics. 2) HAP/bronchitis- - Duoneb prn - steroid on tapering dose. - on cefepime and doxy as per ID 3)Uncontrolled htn - will continue clonodine, lisinopril, and norvasc and hydralazine. 4) IDDM - continue levemir - continue ISS, and pre-prandial insulin - Carb controlled diet - Fingerstick ACHS. 5) ESRD on HD - On renagel - Renal diet - Nephro following 6)Chronic anemia - h/h stable - will continue to monitor 7) CAD with stents and CABG - continue asa - lipitor, lisinorpil, and coreg 8) Parkinson - continue sinemet 9) Seizure disorder - continue with primidone 10) Depression/anxiety - continue antidepressant and anti-anxiolytics as per psych. 11) h/o DVT - coumadin 10 mg - f/u INR 12) CHF/arrhythmias - continue amiodorone 13) DVT and Gi prophylaxis: Coumadin and protonix. Patient seen examined, case discussed with the attending. <Wm Aguirre - Last Filed: 08/30/16 08:13> Objective - Vital Signs/Intake and Output Vital Signs (last 24 hours): Temp Pulse Resp BP Pulse Ox 98.4 F 71 20 174/66 H 98 08/14/16 10:00 08/14/16 10:12 08/14/16 10:00 08/14/16 10:12 08/14/16 12:37 - Labs Labs: 08/14/16 05:30 08/14/16 05:30 PT 54.8 Seconds (9.9-11.8) H* 08/14/16 05:30 INR 5.07 (0.93-1.08) H* 08/14/16 05:30 APTT 45.3 Seconds (23.7-30.8) H 08/12/16 08:16 Attending/Attestation - Attestation I have personally seen and examined this patient.: Yes I have fully participated in the care of the patient.: Yes I have reviewed all pertinent clinical information, including history, physical exam and plan: Yes Notes (Text): 08/30/16 08:13 Medical record note made by the resident after discussion with my direction and input after the patient was personally seen and examined by me. I have reviewed the chart and agree that the record reflects my personal performance of history, physical, data review and course for the patient that I have planned.
--- NOTE | 2016-08-13 07:51 | PN ---
DATE: 08/13/2016 SUBJECTIVE: The patient appears very comfortable this morning. She is not short of breath at rest. OBJECTIVE: VITAL SIGNS: Temperature is 98.3, pulse 54, respirations 18/20, blood pressure 140/70. Oxygen saturation on room air is 98%. HEENT: Normocephalic, atraumatic. No JVD. CARDIOVASCULAR: Positive S1, S2. No S3. LUNGS: Very minimal/less rhonchi. No wheezing. EXTREMITIES: The patient is status post right BKA. Left lower extremity shows mild edema. The left calf is nontender to palpation. There is no cyanosis or clubbing. GASTROINTESTINAL: Abdomen is soft, nontender, nondistended. Bowel sounds are positive. SKIN: No acute rash. NEUROLOGIC: Limited at the present time. IMPRESSION: 1. Left lower lobe pneumonia. 2. Sepsis syndrome -- resolving. 3. Mild anemia. 4. Coronary artery disease. 5. Diabetes mellitus. PLAN: The patient appears very comfortable this morning. She is not short of breath at rest. She states she is feeling much, much better overall. On physical exam, her bronchospasm continues to resolve. In addition, the alveolar arterial gradient has also resolved. Oxygen saturation on room air is now 98%. I will continue with the current nebulizer treatments and decrease the oral steroids this morning. The patient remains on antibiotic therapy -- as per infectious disease. Temperatures have fully resolved. There is no leukocytosis. The clinical status of the patient is significantly improved -- compared to the initial presentation. I will discuss the above with the attending physician. Mart Chacon MD cc: [id number] TT: 08/13/2016 07:51:15 Confirmation # [id number] Dictation # [id number] [email or web address] YUAN
[2016-08-13] MEDS: Insulin Lispro 1 UNITS/0.01 ML SC SCH ×4 (08:05→21:47)
[2016-08-13] MEDS: Insulin Lispro (humaLOG) LOW Coverage SC SCH ×4 (08:16→21:35)
[2016-08-13] MEDS ORDERED: Albuterol-Ipratrop 3 mg / 0.5 (3 ml) UD IH PRN (09:17)
[2016-08-13] MEDS: Insulin Detemir 100 units/ml Vial (Levemir) SC SCH ×2 (09:55→18:12)
[2016-08-13] MEDS: Collagenase 250 Units/gm Ointment(30 gm) TOP SCH (10:00)
[2016-08-13] MEDS: Pantoprazole 40 mg EC Tab PO SCH ×2 (10:00→14:53)
[2016-08-13 10:33] LABS: ADD MANUAL DIFF? NO
[2016-08-13 10:36] LABS: EOS % 0.3 % (1.5-5.0); GRAN # 6.94 (1.4-6.5); HEMATOCRIT 31.8 % (36.0-48.0); LYMPH # 1.5 (1.2-3.4); LYMPH % 16.8 % (22.0-35.0); MEAN CORPUSCULAR HEMOGLOBIN 27.4 pg (25.0-35.0); MEAN PLATELET VOLUME 11.1 fl (7.0-11.0); MONO # 0.5 (0.1-0.6); MONO % 5.9 % (1.0-6.0); PLATELET COUNT 157 10^3/uL (120.0-450.0)
[2016-08-13 10:46] LABS: BILIRUBIN,TOTAL 0.7 mg/dL (0.2-1.3); CALCIUM 9.5 mg/dL (8.4-10.5); MAGNESIUM 2.1 mg/dL (1.7-2.2); PHOSPHOROUS 3.5 mg/dL (2.5-4.5)
[2016-08-13 11:04] LABS: POTASSIUM 4.5 mmol/L (3.6-5.0); TOTAL PROTEIN 6.6 g/dL (5.8-8.3)
--- NOTE | 2016-08-13 12:39 | PN ---
DATE: 08/13/2016 The patient is a 66-year-old white female currently being treated for pneumonia. She was to be disch arged yesterday, but found to have a positive bone scan indicating osteomyelitis in the left calcaneu s. Today, I spoke with the patient's daughter at bedside. The patient is awake, alert, coherent, oriented x 3, slightly depressed, but otherwise rational and l ucid without psychotic symptomatology. The patient is currently receiving hemodialysis. LABORATORY DATA: Reveal white count of 9000, hemoglobin 10.5, platelet count 157,000. Metabolic pro file reveals a sodium of 125, potassium 4.5, chloride 90, CO2 21, anion gap 19, BUN 83, creatinine 5. 9, estimated GFR of 7. Random glucose of 219. Alkaline phosphatase 144. The rest of parameters wer e within normal range. CURRENT MEDICATIONS: Include Apresoline, Catapres, Cordarone, Coreg, Coumadin, Doryx, DuoNeb treatme nts, Ecotrin, Humalog insulin, Levemir insulin, Lexapro 10 mg daily, atorvastatin, Maxipime IV, primi done 50 mg a.m. and at bedtime, p.r.n. Percocet, prednisone 20 mg daily, Protonix, Santyl, Sinemet 10 /100 one tab t.i.d., Xanax 0.25 b.i.d. and Zestril. VITAL SIGNS: Blood pressure is 140/70, pulse is 54, respirations 20 per minute, O2 saturation 98% on room air. IMPRESSION: The patient has acute osteomyelitis. She has resolving pneumonia. She has history of d epression with recent psychotic features, none now. She has generalized anxiety. She has a history of hypertension, essential tremor, possible Parkinson's disease; chronic kidney disease, severe, with hemodialysis. The patient has history of coronary artery stents, history of a BK amputation. PLAN: Continue Xanax 0.25 mg b.i.d., continue Lexapro 10 mg q.a.m. and continue primidone 50 mg a.m. and at bedtime. Will continue to monitor her mental status. Neil Wiggins MD cc: [id number] TT: 08/13/2016 12:38:41 Confirmation # [id number] Dictation # [id number] mn
[2016-08-13] MEDS: Oxycodone/Acetaminophen 10/325 mg Tab PO PRN (14:49)
--- NOTE | 2016-08-13 14:55 | CP.PCM.PN ---
<Sharmila Em - Last Filed: 08/13/16 14:52> Subjective - Date & Time of Evaluation Date of Evaluation: 08/13/16 Time of Evaluation: 14:52 - Subjective Subjective: 66 year old female was seen resting comfortably at bedside with attending, Dr. Gay, regarding left heel ulceration. Patient denies any pain in her feet. Her left foot is offloaded with a pillow. She denies n/f/v/c/d. Objective - Vital Signs/Intake and Output Vital Signs (last 24 hours): Temp Pulse Resp BP Pulse Ox 98.3 F 55 L 20 204/87 H 98 08/13/16 06:00 08/13/16 10:00 08/13/16 06:00 08/13/16 09:40 08/13/16 06:00 Intake and Output: 08/13/16 08/13/16 06:59 18:59 Intake Total 480 360 Output Total 0 Balance 480 360 - Medications Medications: Current Medications Albuterol/Ipratropium (Duoneb 3 Mg/0.5 Mg (3 Ml) Ud) 3 ml IH [id number] PRN PRN Reason: Wheezing Alprazolam (Xanax) 0.25 mg PO BID [facility]S [facility] Stop: 08/16/16 18:01 Last Admin: 08/13/16 10:02 Dose: Not Given Amiodarone HCl (Cordarone) 200 mg PO DAILY [facility] Last Admin: 08/13/16 10:00 Dose: Not Given Amlodipine Besylate (Norvasc) 10 mg PO DAILY [facility] Last Admin: 08/13/16 10:00 Dose: Not Given Aspirin (Ecotrin) 81 mg PO DAILY [facility] Last Admin: 08/13/16 10:00 Dose: Not Given Atorvastatin Calcium (Lipitor) 80 mg PO DIN [facility] Last Admin: 08/12/16 17:34 Dose: 80 mg Carbidopa/Levodopa (Sinemet 10/100) 1 tab PO TID [facility] Last Admin: 08/13/16 10:01 Dose: Not Given Carvedilol (Coreg) 3.125 mg PO Q12 [facility] Last Admin: 08/13/16 10:00 Dose: Not Given Clonidine HCl (Catapres) 0.3 mg PO BID [facility] Last Admin: 08/13/16 09:59 Dose: Not Given Collagenase (Santyl) 0 gm TOP DAILY [facility] Last Admin: 08/13/16 10:00 Dose: Not Given Escitalopram Oxalate (Lexapro) 10 mg PO DAILY [facility] Last Admin: 08/13/16 10:00 Dose: Not Given Guaifenesin/Dextromethorphan (Robitussin Dm) 5 ml PO Q4H PRN PRN Reason: Cough Last Admin: 08/11/16 10:15 Dose: 5 ml Hydralazine HCl (Apresoline) 100 mg PO Q8H [facility] Last Admin: 08/13/16 12:34 Dose: Not Given Cefepime HCl (Maxipime 1gm) 1 gm in 100 mls @ 200 mls/hr IVPB Q24H [facility] Last Admin: 08/12/16 17:41 Dose: 200 mls/hr Insulin Detemir (Levemir) 10 unit SC BID [facility] Last Admin: 08/13/16 09:55 Dose: 10 unit Insulin Human Lispro (Humalog) 2 units SC ACHS [facility] 234 [facility] Last Admin: 08/13/16 11:30 Dose: Not Given Insulin Human Lispro (Humalog Low) 0 units SC ACHS [facility] 234 [facility] Last Admin: 08/13/16 11:30 Dose: Not Given Lisinopril (Zestril) 80 mg PO DAILY [facility] Last Admin: 08/13/16 10:00 Dose: Not Given Oxycodone/Acetaminophen (Percocet 10/325 Mg Tab) 1 tab PO Q6H PRN PRN Reason: Pain, severe (8-10) Pantoprazole Sodium (Protonix Ec Tab) 40 mg PO DAILY [facility] Last Admin: 08/13/16 10:00 Dose: Not Given Prednisone (Prednisone Tab) 20 mg PO DAILY [facility] Last Admin: 08/13/16 10:00 Dose: Not Given Primidone (Mysoline) 50 mg PO HS [facility] 234 [facility] Sevelamer HCl (Renagel) 800 mg PO TID [facility] 234 [facility] Last Admin: 08/13/16 10:01 Dose: Not Given Warfarin Sodium (Coumadin) 10 mg PO 1800 [facility] 234 [facility] PRN Reason: Protocol Last Admin: 08/12/16 17:31 Dose: 10 mg Zinc Sulfate (Zinc Sulfate 220 Mg Cap) 220 mg PO DAILY [facility] 234 [facility] Last Admin: 08/13/16 10:00 Dose: Not Given - Labs Labs: 08/13/16 10:25 08/13/16 10:25 PT 24.2 Seconds (9.9-11.8) H 08/12/16 08:20 INR 2.24 (0.93-1.08) H 08/12/16 08:20 APTT 45.3 Seconds (23.7-30.8) H 08/12/16 08:16 - Constitutional Appears: No Acute Distress, Chronically Ill - Extremities Exam Additional comments: Lower extremity focused exam: Right: Below knee amputation noted Left: vasc: Non-palpable DP and PT pulses, CFT < 4 sec to all digits, TG wnl, no edema noted neuro: Gross sensation diminished derm: Superficial ulceration noted to heel no drainage, no purulence, no malodor , no ascending cellulitis, no fluctuance, no probe to bone noted ortho: Mild pain on palpation to heel - Neurological Exam Neurological Exam: Alert, Awake - Psychiatric Exam Psychiatric exam: Normal Affect, Normal Mood Assessment and Plan - Assessment and Plan (Free Text) Assessment: 66 year old female seen for diabetic left heel ulceration Plan: Patient examined and evaluated with attending Dr. Gay Chart, labs and vitals reviewed: afebrile, no leukocytosis Left heel cleansed with normal sterile saline clinically speak ing wound does not probe to bone but does light up on bone scan , Abx per ID wound culture obtained from left heel Left heel dressed with optifoam Patient to continue offloading the left heel while in bed Podiatry will continue to monitor while patient remains in house <Dany Gay - Last Filed: 08/16/16 11:08> Objective - Vital Signs/Intake and Output Vital Signs (last 24 hours): Temp Pulse Resp BP Pulse Ox 98.4 F 71 20 174/66 H 98 08/14/16 10:00 08/14/16 10:12 08/14/16 10:00 08/14/16 10:12 08/14/16 12:37 - Labs Labs: 08/14/16 05:30 08/14/16 05:30 PT 54.8 Seconds (9.9-11.8) H* 08/14/16 05:30 INR 5.07 (0.93-1.08) H* 08/14/16 05:30 APTT 45.3 Seconds (23.7-30.8) H 08/12/16 08:16 Attending/Attestation - Attestation I have personally seen and examined this patient.: Yes I have fully participated in the care of the patient.: Yes I have reviewed all pertinent clinical information, including history, physical exam and plan: Yes
[2016-08-13] MEDS ORDERED: Lidocaine 2% Inj (20ml) ONE (15:18)
--- NOTE | 2016-08-13 15:39 | CP.PCM.DIS ---
<Angelica Dominguez - Last Filed: 08/19/16 19:21> Provider - Provider Date of Admission: 08/08/16 14:53 Attending physician: Wm Aguirre MD Primary care physician: Dr Morton Consults: ID- Dr Weaver Nephro: Dr Eller Cardio: Dr De La Rosa Podiatry: Dr Issa. Time Spent in preparation of Discharge (in minutes): 60 Diagnosis - Discharge Diagnosis (1) Diabetic foot ulcer Status: Acute (2) Hospital acquired PNA Status: Acute (3) ESRD on dialysis Status: Chronic (4) Depression Status: Chronic (5) Hypertension Status: Acute (6) Osteomyelitis Status: Acute Hospital Course - Lab Results Lab Results: Most Recent Lab Values WBC 9.0 10^3/ul (4.5-11.0) 08/13/16 10:25 RBC 3.83 10^6/uL (3.5-6.1) 08/13/16 10:25 Hgb 10.5 gm/dL (12.0-16.0) L 08/13/16 10:25 Hct 31.8 % (36.0-48.0) L 08/13/16 10:25 MCV 83.0 fL (80.0-105.0) 08/13/16 10:25 MCH 27.4 pg (25.0-35.0) 08/13/16 10:25 MCHC 33.0 g/dl (31.0-37.0) 08/13/16 10:25 RDW 18.0 % (11.5-14.5) H 08/13/16 10:25 Plt Count 157 10^3/uL (120.0-450.0) 08/13/16 10:25 MPV 11.1 fl (7.0-11.0) H 08/13/16 10:25 Gran % 77.0 % (50.0-68.0) H 08/13/16 10:25 Lymph % (Auto) 16.8 % (22.0-35.0) L 08/13/16 10:25 Coleman % (Auto) 5.9 % (1.0-6.0) 08/13/16 10:25 Eos % (Auto) 0.3 % (1.5-5.0) L 08/13/16 10:25 Baso % (Auto) 0.0 % (0.0-3.0) 08/13/16 10:25 Gran # 6.94 (1.4-6.5) H 08/13/16 10:25 Lymph # 1.5 (1.2-3.4) 08/13/16 10:25 Coleman # 0.5 (0.1-0.6) 08/13/16 10:25 Eos # 0.0 (0.0-0.7) 08/13/16 10:25 Baso # 0.00 K/mm3 (0.0-2.0) 08/13/16 10:25 ESR 29 mm/hr (0.0-20.0) H 08/09/16 06:00 PT 24.2 Seconds (9.9-11.8) H 08/12/16 08:20 INR 2.24 (0.93-1.08) H 08/12/16 08:20 APTT 45.3 Seconds (23.7-30.8) H 08/12/16 08:16 pO2 55 mm/Hg (30-55) 08/08/16 10:45 VBG pH 7.34 (7.32-7.43) 08/08/16 10:45 VBG pCO2 50.0 (40-60) 08/08/16 10:45 VBG HCO3 27.0 mmol/l (21-28) 08/08/16 10:45 VBG Total CO2 28.5 mmol.L (22-28) H 08/08/16 10:45 VBG O2 Sat (Calc) 87.7 % (40-65) H 08/08/16 10:45 VBG Base Excess 0.5 mmol/L (0.0-2.0) 08/08/16 10:45 VBG Potassium 5.6 mmol/L (3.6-5.2) H 08/08/16 10:45 Sodium 131.0 mmol/L (132-148) L 08/08/16 10:45 Chloride 98.0 mmol/L (98-107) 08/08/16 10:45 Glucose 105 mg/dl (65-105) 08/08/16 10:45 Lactate 1.7 mmol/L (0.7-2.1) 08/08/16 10:45 FiO2 21.0 % 08/08/16 10:45 Sodium 125 mmol/L (132-148) L 08/13/16 10:25 Potassium 4.5 mmol/L (3.6-5.0) 08/13/16 10:25 Chloride 90 mmol/L (98-107) L 08/13/16 10:25 Carbon Dioxide 21 mmol/L (21-33) 08/13/16 10:25 Anion Gap 19 (10-20) 08/13/16 10:25 BUN 83 mg/dL (7-21) H 08/13/16 10:25 Creatinine 5.9 mg/dL (0.5-1.4) H 08/13/16 10:25 Est GFR ( Amer) 9 08/13/16 10:25 Est GFR (Non-Af Amer) 7 08/13/16 10:25 POC Glucose (mg/dL) 275 mg/dL (65-110) H 08/09/16 07:30 Random Glucose 219 mg/dL (70-110) H 08/13/16 10:25 Calcium 9.5 mg/dL (8.4-10.5) 08/13/16 10:25 Phosphorus 3.5 mg/dL (2.5-4.5) 08/13/16 10:25 Magnesium 2.1 mg/dL (1.7-2.2) 08/13/16 10:25 Total Bilirubin 0.7 mg/dL (0.2-1.3) 08/13/16 10:25 AST 19 U/L (15-39) 08/13/16 10:25 ALT 15 U/L (7-56) 08/13/16 10:25 Alkaline Phosphatase 144 U/L (38-133) H 08/13/16 10:25 Troponin I 0.08 ng/mL 08/09/16 07:30 C-React Prot High Sens > 15.00 mg/L (1.00-3.00) H 08/09/16 06:00 NT-Pro-B Natriuret Pep 63672 pg/mL (0-450) H 08/08/16 10:45 Total Protein 6.6 g/dL (5.8-8.3) 08/13/16 10:25 Albumin 3.3 g/dL (3.0-4.8) 08/13/16 10:25 Globulin 3.4 gm/dL 08/13/16 10:25 Albumin/Globulin Ratio 1.0 (1.1-1.8) L 08/13/16 10:25 Procalcitonin 0.13 NG/ML (0.19-0.49) L 08/09/16 06:00 TSH 3rd Generation 0.81 mIU/mL (0.46-4.68) 08/09/16 06:00 Venous Blood Potassium 5.6 mmol/L (3.6-5.2) H 08/08/16 10:45 - Hospital Course Hospital Course: Patient is a 66 y/o with PMH of ESRD ( on HD on T, , and fri), CAD with stents , and CABG, right BKDA, IDDM, antiphospholipid syndrome, DVT, Parkinson disease , depression, seizure disorders, GERD, CHF, and HTN whom presented with worsening shortness of breath. Patient underwent basic labs and chest x-ray which was impressive for pneumonia. Patient was started on antibiotics, bronchodilators and steroids. Patient was roman cultured which revealed no growth. Pulmonary and ID were following patient. Nephrology was also consulted for patient to resume her dialysis. Patient had rachel-tachy syndrome on tele, cardiology was consulted as well. Patient's BP was poorly controlled on admission, and her BP meds were adjusted accordingly. Patient's INR was subtherapeutic on admission, patient was started on heparin drip, bridged with coumadin. Patient had left heel ulcer, bone scan revealed osteomyolitis. Patient was discharged to [facility] for 4-5 weeks of vanco and cefepime. - Date & Time of H&P Date of H&P: 08/08/16 Time of H&P: 05:50 Discharge Exam - Head Exam Head Exam: ATRAUMATIC, NORMAL INSPECTION, NORMOCEPHALIC - Eye Exam Eye Exam: EOMI, Normal appearance, PERRL. absent: Scleral icterus - ENT Exam ENT Exam: Mucous Membranes Moist - Neck Exam Neck exam: Normal Inspection - Respiratory Exam Respiratory Exam: Clear to PA & Lateral, NORMAL BREATHING PATTERN, UNREMARKABLE. absent: Rales, Rhonchi, Wheezes, Respiratory Distress, Stridor - Cardiovascular Exam Cardiovascular Exam: REGULAR RHYTHM, RRR, +S1, +S2. absent: Systolic Murmur - GI/Abdominal Exam GI & Abdominal Exam: Normal Bowel Sounds, Unremarkable. absent: Distended, Firm , Guarding, Rigid, Soft, Tenderness - Extremities Exam Extremities exam: tenderness - Back Exam Back exam: NORMAL INSPECTION - Neurological Exam Neurological exam: Alert, Oriented x3 - Psychiatric Exam Psychiatric exam: Normal Affect, Normal Mood - Skin Skin Exam: Dry, Normal Color, Warm Additional comments: left heel with ~2 cm ulceration, no drainage, + granulation tissue. Left upper extremities with old avf, no thrill or bruit. right lower extremities with post amputation stump. Discharge Plan - Discharge Medications Prescriptions: hydrALAZINE [Apresoline] 100 mg PO Q8H #90 tab Carvedilol [Coreg] 3.125 mg PO Q12 #30 tab Warfarin [Coumadin] 10 mg PO 1800 #1 Atorvastatin [Lipitor] 80 mg PO DIN #30 tab Lisinopril [Zestril] 80 mg PO DAILY #30 tab - Follow Up Plan Condition: GUARDED Disposition: TRANSF TO SNF Patient education suggested?: Yes Instructions: Heart Failure (DC), Diabetic Foot Care (DC), End Stage Kidney Disease (DC) Additional Instructions: Please take 10 mg Coumadin tomorrow at 6pm Follow up with the dialysis center for INR check ( on ) Follow up with Dr Eller for your dialysis Take the prednisone as prescribed ( 10 mg tomorrow, then 5 mg on ) Antibiotic is arranged for you, you will get vanco with your dialysis and infusion nurse will come to your home for the cefepime. You will need a total of 4-5 weeks of antibiotics Follow up with Dr Issa for wound care. Follow up eith Dr Morton in he office. Follow up with Dr De La Rosa Please go to the nearest emergency room if you experience chest pain, shortness of breath, fever or chills. Referrals: Alexey Morton MD [Family Provider] - Bebo Eller MD [Staff Provider] - Elmira Issa DPM [Staff Provider] - Alistair De La Rosa MD [Staff Provider] - <Alexey Morton - Last Filed: 09/01/16 19:09> Provider - Provider Date of Admission: 08/08/16 14:53 Attending physician: Wm Aguirre MD [facility] Course - Lab Results Lab Results: Micro Results 08/13/16 14:30 Other: Please Indicate Gram Stain - Final 08/13/16 14:30 Other: Please Indicate Wound Culture - Final Coagulase Neg Staphylococcus Most Recent Lab Values WBC 10.1 10^3/ul (4.5-11.0) 08/14/16 05:30 RBC 4.01 10^6/uL (3.5-6.1) 08/14/16 05:30 Hgb 10.9 gm/dL (12.0-16.0) L 08/14/16 05:30 Hct 33.5 % (36.0-48.0) L 08/14/16 05:30 MCV 83.5 fL (80.0-105.0) 08/14/16 05:30 MCH 27.2 pg (25.0-35.0) 08/14/16 05:30 MCHC 32.5 g/dl (31.0-37.0) 08/14/16 05:30 RDW 18.5 % (11.5-14.5) H 08/14/16 05:30 Plt Count 182 10^3/uL (120.0-450.0) 08/14/16 05:30 MPV 11.5 fl (7.0-11.0) H 08/14/16 05:30 Gran % 84.1 % (50.0-68.0) H 08/14/16 05:30 Lymph % (Auto) 11.5 % (22.0-35.0) L 08/14/16 05:30 Coleman % (Auto) 4.0 % (1.0-6.0) 08/14/16 05:30 Eos % (Auto) 0.4 % (1.5-5.0) L 08/14/16 05:30 Baso % (Auto) 0.0 % (0.0-3.0) 08/14/16 05:30 Gran # 8.51 (1.4-6.5) H 08/14/16 05:30 Lymph # 1.2 (1.2-3.4) 08/14/16 05:30 Coleman # 0.4 (0.1-0.6) 08/14/16 05:30 Eos # 0.0 (0.0-0.7) 08/14/16 05:30 Baso # 0.00 K/mm3 (0.0-2.0) 08/14/16 05:30 ESR 29 mm/hr (0.0-20.0) H 08/09/16 06:00 PT 54.8 Seconds (9.9-11.8) H* 08/14/16 05:30 INR 5.07 (0.93-1.08) H* 08/14/16 05:30 APTT 45.3 Seconds (23.7-30.8) H 08/12/16 08:16 pO2 55 mm/Hg (30-55) 08/08/16 10:45 VBG pH 7.34 (7.32-7.43) 08/08/16 10:45 VBG pCO2 50.0 (40-60) 08/08/16 10:45 VBG HCO3 27.0 mmol/l (21-28) 08/08/16 10:45 VBG Total CO2 28.5 mmol.L (22-28) H 08/08/16 10:45 VBG O2 Sat (Calc) 87.7 % (40-65) H 08/08/16 10:45 VBG Base Excess 0.5 mmol/L (0.0-2.0) 08/08/16 10:45 VBG Potassium 5.6 mmol/L (3.6-5.2) H 08/08/16 10:45 Sodium 131.0 mmol/L (132-148) L 08/08/16 10:45 Chloride 98.0 mmol/L (98-107) 08/08/16 10:45 Glucose 105 mg/dl (65-105) 08/08/16 10:45 Lactate 1.7 mmol/L (0.7-2.1) 08/08/16 10:45 FiO2 21.0 % 08/08/16 10:45 Sodium 132 mmol/L (132-148) 08/14/16 05:30 Potassium 4.2 mmol/L (3.6-5.0) 08/14/16 05:30 Chloride 95 mmol/L (98-107) L 08/14/16 05:30 Carbon Dioxide 27 mmol/L (21-33) 08/14/16 05:30 Anion Gap 14 (10-20) 08/14/16 05:30 BUN 37 mg/dL (7-21) H 08/14/16 05:30 Creatinine 3.6 mg/dL (0.5-1.4) H 08/14/16 05:30 Est GFR ( Amer) 15 08/14/16 05:30 Est GFR (Non-Af Amer) 13 08/14/16 05:30 POC Glucose (mg/dL) 130 mg/dL (65-110) H 08/14/16 11:21 Random Glucose 73 mg/dL (70-110) 08/14/16 05:30 Calcium 9.2 mg/dL (8.4-10.5) 08/14/16 05:30 Phosphorus 3.5 mg/dL (2.5-4.5) 08/13/16 10:25 Magnesium 2.1 mg/dL (1.7-2.2) 08/13/16 10:25 Total Bilirubin 0.7 mg/dL (0.2-1.3) 08/13/16 10:25 AST 19 U/L (15-39) 08/13/16 10:25 ALT 15 U/L (7-56) 08/13/16 10:25 Alkaline Phosphatase 144 U/L (38-133) H 08/13/16 10:25 Troponin I 0.08 ng/mL 08/09/16 07:30 C-React Prot High Sens > 15.00 mg/L (1.00-3.00) H 08/09/16 06:00 NT-Pro-B Natriuret Pep [id number] pg/mL (0-450) H 08/08/16 10:45 Total Protein 6.6 g/dL (5.8-8.3) 08/13/16 10:25 Albumin 3.3 g/dL (3.0-4.8) 08/13/16 10:25 Globulin 3.4 gm/dL 08/13/16 10:25 Albumin/Globulin Ratio 1.0 (1.1-1.8) L 08/13/16 10:25 Procalcitonin 0.13 NG/ML (0.19-0.49) L 08/09/16 06:00 TSH 3rd Generation 0.81 mIU/mL (0.46-4.68) 08/09/16 06:00 Venous Blood Potassium 5.6 mmol/L (3.6-5.2) H 08/08/16 10:45 Attending/Attestation - Attestation I have personally seen and examined this patient.: Yes I have fully participated in the care of the patient.: Yes I have reviewed all pertinent clinical information, including history, physical exam and plan: Yes Notes (Text): 09/01/16 19:09 Medical record note made by the resident after discussion with my direction and input after the patient was personally seen and examined by me. I have reviewed the chart and agree that the record accurately reflects by personal performance of the history, physical exam, data review, and medical decision-making, in the course for the patient. I have also personally directed the plan of care.
[2016-08-13] MEDS: Cefepime 1gm in NS 100ml 1 GM/100 ML BAG IVPB SCH (16:40)
--- NOTE | 2016-08-13 17:58 | VASCULAR ---
PROCEDURE: Ultrasound and fluoroscopically placed right upper extremity PICC line. HISTORY: Diabetes. I osteomyelitis left heel. Long-term IV antibiotics. Needs PICC line. PHYSICIAN(S): Carl Morris MD. TECHNIQUE: The relative risks and indications of the procedure were explained to the patient and consent obtained. The patient was placed supine on the arteriogram table and the right arm prepped and draped in the usual sterile fashion. A tourniquet was applied to the right axilla. 1% Xylocaine was used to anesthetize the skin and soft tissues at the puncture site above the elbow. The right basilic vein was punctured under direct ultrasound guidance with a micropuncture set. A 0.018 guidewire was advanced centrally and used to measure the length to the SVC/RA junction. A 5 Telugu single-lumen PICC line 40 cm long was advanced to the SVC/RA junction. The catheter was flushed and secured. The patient tolerated the procedure well. IMPRESSION: 1. Ultrasound and fluoroscopically placed right upper extremity PICC line. A 5 Telugu single-lumen PICC line 40 cm long was advanced to the SVC/RA junction.
--- NOTE | 2016-08-13 18:27 | CP.PCM.PN ---
Subjective - Date & Time of Evaluation Date of Evaluation: 08/13/16 Time of Evaluation: 11:35 - Subjective Subjective: Comfortable in bed, no fevers. Objective - Vital Signs/Intake and Output Vital Signs (last 24 hours): Temp Pulse Resp BP Pulse Ox 99.5 F 69 18 159/75 H 98 08/13/16 17:56 08/13/16 18:07 08/13/16 17:56 08/13/16 18:07 08/13/16 06:00 Intake and Output: 08/13/16 08/13/16 06:59 18:59 Intake Total 480 360 Output Total 0 Balance 480 360 - Medications Medications: Current Medications Albuterol/Ipratropium (Duoneb 3 Mg/0.5 Mg (3 Ml) Ud) 3 ml IH [id number] PRN PRN Reason: Wheezing Alprazolam (Xanax) 0.25 mg PO BID [facility] Stop: 08/16/16 18:01 Last Admin: 08/13/16 18:07 Dose: 0.25 mg Amiodarone HCl (Cordarone) 200 mg PO DAILY [facility] Last Admin: 08/13/16 14:53 Dose: 200 mg Amlodipine Besylate (Norvasc) 10 mg PO DAILY [facility] Last Admin: 08/13/16 14:52 Dose: 10 mg Aspirin (Ecotrin) 81 mg PO DAILY [facility] Last Admin: 08/13/16 10:00 Dose: Not Given Atorvastatin Calcium (Lipitor) 80 mg PO DIN [facility] Last Admin: 08/13/16 18:08 Dose: 80 mg Carbidopa/Levodopa (Sinemet 10/100) 1 tab PO TID [facility] Last Admin: 08/13/16 18:09 Dose: 1 tab Carvedilol (Coreg) 3.125 mg PO Q12 [facility] Last Admin: 08/13/16 10:00 Dose: Not Given Clonidine HCl (Catapres) 0.3 mg PO BID [facility] Last Admin: 08/13/16 18:07 Dose: 0.3 mg Collagenase (Santyl) 0 gm TOP DAILY [facility] Last Admin: 08/13/16 10:00 Dose: Not Given Escitalopram Oxalate (Lexapro) 10 mg PO DAILY [facility] Last Admin: 08/13/16 14:48 Dose: 10 mg Guaifenesin/Dextromethorphan (Robitussin Dm) 5 ml PO Q4H PRN PRN Reason: Cough Last Admin: 08/11/16 10:15 Dose: 5 ml Hydralazine HCl (Apresoline) 100 mg PO Q8H [facility] Last Admin: 08/13/16 12:34 Dose: Not Given Cefepime HCl (Maxipime 1gm) 1 gm in 100 mls @ 200 mls/hr IVPB Q24H [facility] Last Admin: 08/13/16 16:40 Dose: 200 mls/hr Vancomycin HCl (Vancomycin 1gm) 1 gm in 250 mls @ 167 mls/hr IVPB TTS [facility] PRN Reason: Protocol Insulin Detemir (Levemir) 10 unit SC BID [facility] Last Admin: 08/13/16 18:12 Dose: 10 unit Insulin Human Lispro (Humalog) 2 units SC ACHS [facility] Last Admin: 08/13/16 18:10 Dose: 2 units Insulin Human Lispro (Humalog Low) 0 units SC ACHS [facility] Last Admin: 08/13/16 18:13 Dose: 2 units Lisinopril (Zestril) 80 mg PO DAILY [facility] Last Admin: 08/13/16 14:48 Dose: 80 mg Oxycodone/Acetaminophen (Percocet 10/325 Mg Tab) 1 tab PO Q6H PRN PRN Reason: Pain, severe (8-10) Last Admin: 08/13/16 14:49 Dose: 1 tab Pantoprazole Sodium (Protonix Ec Tab) 40 mg PO DAILY [facility] Last Admin: 08/13/16 14:53 Dose: 40 mg Prednisone (Prednisone Tab) 20 mg PO DAILY [facility] Last Admin: 08/13/16 14:53 Dose: 20 mg Primidone (Mysoline) 50 mg PO HS [facility] Sevelamer HCl (Renagel) 800 mg PO TID [facility] Last Admin: 08/13/16 18:07 Dose: 800 mg Warfarin Sodium (Coumadin) 7.5 mg PO 1800 [facility] PRN Reason: Protocol Zinc Sulfate (Zinc Sulfate 220 Mg Cap) 220 mg PO DAILY [facility] Last Admin: 08/13/16 14:52 Dose: 220 mg - Labs Labs: 08/13/16 10:25 08/13/16 10:25 PT 24.2 Seconds (9.9-11.8) H 08/12/16 08:20 INR 2.24 (0.93-1.08) H 08/12/16 08:20 APTT 45.3 Seconds (23.7-30.8) H 08/12/16 08:16 - Constitutional Appears: Non-toxic, No Acute Distress - Head Exam Head Exam: NORMAL INSPECTION - Respiratory Exam Respiratory Exam: Decreased Breath Sounds - Cardiovascular Exam Cardiovascular Exam: +S1, +S2 - GI/Abdominal Exam GI & Abdominal Exam: Soft. absent: Tenderness Assessment and Plan - Assessment and Plan (Free Text) Plan: Assessment Sepsis due to left sided healthcare-associated pneumonia, clinically improving Left heel ulcer with evidence of acute osteomyelitis on bone scan ESRD on HD CAD S/P CABG chronic CHF DM history of anti-phospholipid antibody syndrome S/P right below the knee amputation Plan Continue Cefepime and Doxycycline (day 6); will follow up Podiatry evaluation and recommendations for the acute osteomyelitis before we recommend antibiotics - would need 4-6 weeks of antibiotics unless all of the osteomyelitis is removed Will continue to monitor clinically
[2016-08-14 06:34] LABS: ADD MANUAL DIFF? NO
[2016-08-14 06:59] LABS: EOS % 0.4 % (1.5-5.0); GRAN # 8.51 (1.4-6.5); GRAN % 84.1 % (50.0-68.0); HEMATOCRIT 33.5 % (36.0-48.0); LYMPH # 1.2 (1.2-3.4); LYMPH % 11.5 % (22.0-35.0); MEAN CELL VOLUME 83.5 fL (80.0-105.0); MEAN CORPUSCULAR HEMOGLOBIN 27.2 pg (25.0-35.0); MEAN CORPUSCULAR HGB CONC 32.5 g/dl (31.0-37.0); MEAN PLATELET VOLUME 11.5 fl (7.0-11.0); MONO # 0.4 (0.1-0.6); PLATELET COUNT 182 10^3/uL (120.0-450.0); RED CELL DISTRIBUTION WIDTH 18.5 % (11.5-14.5); WHITE BLOOD COUNT 10.1 10^3/ul (4.5-11.0)
[2016-08-14 07:11] LABS: CALCIUM 9.2 mg/dL (8.4-10.5); INR 5.07 (0.93-1.08); POTASSIUM 4.2 mmol/L (3.6-5.0)
[2016-08-14] MEDS: Insulin Lispro (humaLOG) LOW Coverage SC SCH (08:00)
--- NOTE | 2016-08-14 08:32 | PN ---
DATE: 08/14/2016 SUBJECTIVE: The patient has no complaints of any chest pain or shortness of breath. She says her co ugh is better. PHYSICAL EXAMINATION: VITAL SIGNS: Temperature is 99.5, pulse is 60, blood pressure 145/53, respirations 18. GENERAL: The patient comfortable, in no acute distress. HEENT: Anicteric sclerae. Moist mucosa. NECK: No JVD or adenopathy. CARDIAC: S1/S2. No murmurs. No rubs. Regular. RESPIRATORY: Clear to auscultation bilaterally. No wheezes, rales, or rhonchi. Good air entry. ABDOMEN: Bowel sounds are positive, soft, nontender, and nondistended. EXTREMITIES: No edema. Has 1+ pulses. LABORATORY DATA: White count of 10.1, hemoglobin 10.9. Creatinine is 8.6. ASSESSMENT: 1. End-stage renal disease on hemodialysis. 2. Coronary artery disease. 3. Secondary hyperparathyroidism. 4. Hypertension. 5. Parkinson's. 6. Diabetes type 2. 7. Peripheral arterial disease. 8. Gastroesophageal reflux disease. 9. Antiphospholipid antibodies, on Coumadin. 10. Left arm fistula. 11. Left renal cyst. PLAN: The patient is currently comfortable. She is continuing on dialysis. The patient is going to get vancomycin on dialysis. She is on Coumadin. She is going to be discharged home today to [facility] dialysis as an outpatient. The patient is on clonidine for her blood pressure. She is on amiodar one. She is going to continue with Norvasc for hypertension. She is on Lipitor for dyslipidemia. S he is on Lexapro. She is on Levemir for her diabetes. She is on Lexapro for her anxiety. She is on her carbidopa, levodopa for her Parkinson's. She is on Zestril for her hypertension as well. Bebo Eller MD cc: [id number] TT: 08/14/2016 08:32:16 Confirmation # [id number] Dictation # [id number] tn
--- NOTE | 2016-08-14 08:52 | PN ---
DATE: 08/14/2016 SUBJECTIVE: The patient appears very comfortable this morning. She is not short of breath at rest. PHYSICAL EXAMINATION: VITAL SIGNS: Last temperature recorded is 99.5. Pulse is 60. Respirations 18. Blood pressure 145/53. Oxygen saturation on room air is 98%. HEENT: Normocephalic, atraumatic. No JVD. CARDIOVASCULAR: Positive S1, S2. No S3. LUNGS: Clear bilaterally this morning. EXTREMITIES: The patient is status post right BKA. Left lower extremity shows mild edema. The left calf is nontender to palpation. There is no cyanosis or clubbing. GASTROINTESTINAL: Abdomen is soft, nontender, nondistended. Bowel sounds are positive. SKIN: No acute rash. NEUROLOGIC: Limited at the present time. IMPRESSION: 1. Left lower lobe pneumonia. 2. Sepsis syndrome -- resolving. 3. Mild anemia. 4. Coronary artery disease. 5. Diabetes mellitus. 6. Osteomyelitis. PLAN: The patient appears very comfortable this morning. She is not short of breath at rest. She states she is feeling much, much better overall. On physical exam, her lungs are now clear. Oxygen saturation on room air is 98%. I will continue with the current nebulizer treatments and decrease the oral steroids this morning. The patient remains on antibiotic therapy -- as per infectious disease. The patient did receive a PICC line yesterday by Dr. Carl Morris. She is for probable discharge home -- with long-term antibiotic therapy. Her pulmonary status has significantly improved -- while in the hospital. I will discuss the above with Dr. Aguirre. Mart Chacon MD cc: [id number] TT: 08/14/2016 08:51:54 Confirmation # [id number] Dictation # [id number] deb YUAN
[2016-08-14 10:00] VITALS: RESP 20; TEMP 98.4
[2016-08-14] MEDS: Pantoprazole 40 mg EC Tab PO SCH (10:03)
[2016-08-14] MEDS: Insulin Detemir 100 units/ml Vial (Levemir) SC SCH (10:12)
[2016-08-14] MEDS: Oxycodone/Acetaminophen 10/325 mg Tab PO PRN (10:13)
[2016-08-14] MEDS: Insulin Lispro 1 UNITS/0.01 ML SC SCH (10:15)
[2016-08-14 10:27] VITALS: BP 174/66; PULSE 71
--- NOTE | 2016-08-14 12:29 | IP.NPCORE ---
Pneumonia Progress Notes - Oxygenation Assessment (REQUIRED) O2 Saturation: 98 Oxygen Delivery Method: Nasal Cannula - Blood Cultures (REQUIRED) Culture drawn: Yes Date:: 08/08/16 Time:: 10:30 - Initial Antibiotic Initial Antibiotic given within Four Hours:: Yes - Appropriate Antibiotic Appropriate Antibiotic within 24 hours of Admission:: Yes Current Antibiotic: Maxipime, VAnco No change in antibiotics: Yes - Pneumonia Vaccine Pneumonia Vaccine: No (unknown) - Smoking Cessation Smoking Cessation counseling provided:: No Ex-Smoker (has not smoked in the last 12 months): Yes Current Smoker - smoking cessation education provided: No
--- NOTE | 2016-08-14 14:38 | PN ---
DATE: 08/14/2016 The patient is a 66-year-old female currently being treated for pneumonia and osteomyelitis with IV antibiotics. She has a history of recurrent depression and generalized anxiety, past history of psychosis. I met and spoke with patient and daughter at bedside. The patient is being discharged and transferred today at [facility] for acute rehab and continued IV antibiotics. The patient's mental status reveals that she is awake, alert, coherent, and oriented x 3. She is aware of her surroundings, understands the nature of her condition. She has mild impairment of recent memory. No psychosis. She is mildly to moderately depressed. No suicidal ideations. CURRENT MEDICATIONS: Include Apresoline, Catapres, Cordarone, Coreg, Coumadin, DuoNeb treatments, Ecotrin, Levemir insulin, Lexapro, Lipitor, Maxipime, primidone 50 mg in a.m. and at bedtime, Norvasc, p.r.n. Percocet, prednisone 10 mg daily, Protonix, Renagel, Santyl, Sinemet 10/100 one tab t.i.d., vancomycin IV, Xanax 0.25 mg twice a day, Zestril 80 mg daily, and zinc sulfate. CURRENT LABORATORY DATA: White count 10,100, hemoglobin is 10.9, platelet count 182,000. The patient's metabolic profile: Her sodium 132, potassium 4.3 , chloride 95, CO2 of 27, anion gap of 17, BUN 37, creatinine 3.6, glucose is 130. Her estimated GFR is 13. VITAL SIGNS: Blood pressure is 174/____, pulse 71. She is afebrile. Respirations 18 per minute, and O2 saturation 98% on nasal cannula. I spoke at length with daughter. I spoke at length with patient. IMPRESSION: The patient has osteomyelitis of her right heel. She has left below-knee amputation. She has hospital-acquired pneumonia; end-stage renal disease, on hemodialysis; history of recurrent depression with psychotic features, generalized anxiety, hypertension. PLAN: Continue above psychotropic medicines. Will need a psychiatric consultation at rehab facility. Neil Wiggins MD cc: [id number] TT: 08/14/2016 14:27:49 Confirmation # [id number] Dictation # [id number] dc 08/14/2016 13:34:10 MTDD
--- NOTE | 2016-08-14 19:32 | CP.PCM.PN ---
Subjective - Date & Time of Evaluation Date of Evaluation: 08/14/16 Time of Evaluation: 10:15 - Subjective Subjective: Comfortable in bed, not in distress, afebrile, breathing better, no cough, no diarrhea. Objective - Vital Signs/Intake and Output Vital Signs (last 24 hours): Temp Pulse Resp BP Pulse Ox 98.4 F 71 20 174/66 H 98 08/14/16 10:00 08/14/16 10:12 08/14/16 10:00 08/14/16 10:12 08/14/16 12:37 Intake and Output: 08/14/16 08/15/16 18:59 06:59 Intake Total 0 Output Total 0 Balance 0 - Labs Labs: 08/14/16 05:30 08/14/16 05:30 PT 54.8 Seconds (9.9-11.8) H* 08/14/16 05:30 INR 5.07 (0.93-1.08) H* 08/14/16 05:30 APTT 45.3 Seconds (23.7-30.8) H 08/12/16 08:16 - Constitutional Appears: Non-toxic, No Acute Distress - Head Exam Head Exam: NORMAL INSPECTION - ENT Exam ENT Exam: Mucous Membranes Moist - Neck Exam Neck Exam: absent: Lymphadenopathy, Meningismus - Respiratory Exam Respiratory Exam: Decreased Breath Sounds - Cardiovascular Exam Cardiovascular Exam: +S1, +S2 - GI/Abdominal Exam GI & Abdominal Exam: Soft. 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
[2016-08-15] MEDS ORDERED: Vancomycin 1gm in NS 250ml 1 GM/250 ML BAG IVPB SCH (10:00)
== END 2016-08-14 14:54 | DRG 193 ==
LOC: ED 09:44 → EROBSV 14:26 → OBSVTOIN 14:53 → ERH 14:53 → 2RNO 18:43 → 3RSO 08-13 21:34
PROVIDERS: ADMIT Internal Medicine; ATTEND Internal Medicine
PROC: 3E0F7GC Introduction of Other Therapeutic Substance into Respiratory Tract, Via Natural or Artificial Opening (ICD-10-PCS; 2016-08-09)
PROC: 02HV33Z Insertion of Infusion Device into Superior Vena Cava, Percutaneous Approach (ICD-10-PCS; principal; 2016-08-13)
DX: J18.9 Pneumonia, unspecified organism (principal); N18.6 End stage renal disease; I13.2 Hypertensive heart and chronic kidney disease with heart failure and with stage 5 chronic kidney disease, or end stage renal disease; D68.61 Antiphospholipid syndrome; E11.22 Type 2 diabetes mellitus with diabetic chronic kidney disease; E11.51 Type 2 diabetes mellitus with diabetic peripheral angiopathy without gangrene; M86.172 Other acute osteomyelitis, left ankle and foot; N25.81 Secondary hyperparathyroidism of renal origin; L97.429 Non-pressure chronic ulcer of left heel and midfoot with unspecified severity; F33.9 Major depressive disorder, recurrent, unspecified; E87.1 Hypo-osmolality and hyponatremia; E11.621 Type 2 diabetes mellitus with foot ulcer; E11.69 Type 2 diabetes mellitus with other specified complication; G20 Parkinson's disease; I50.9 Heart failure, unspecified; I25.10 Atherosclerotic heart disease of native coronary artery without angina pectoris; Z99.2 Dependence on renal dialysis; K21.9 Gastro-esophageal reflux disease without esophagitis; R26.2 Difficulty in walking, not elsewhere classified; N28.1 Cyst of kidney, acquired; D64.9 Anemia, unspecified; G25.0 Essential tremor; F41.1 Generalized anxiety disorder; M19.90 Unspecified osteoarthritis, unspecified site; E78.00 Pure hypercholesterolemia, unspecified; G40.909 Epilepsy, unspecified, not intractable, without status epilepticus; Z79.4 Long term (current) use of insulin; Z86.718 Personal history of other venous thrombosis and embolism; Z79.01 Long term (current) use of anticoagulants; I25.2 Old myocardial infarction; Z95.5 Presence of coronary angioplasty implant and graft; Z95.1 Presence of aortocoronary bypass graft; Z89.511 Acquired absence of right leg below knee; Z89.411 Acquired absence of right great toe; Z87.891 Personal history of nicotine dependence; Z81.8 Family history of other mental and behavioral disorders

== ENCOUNTER 2016-08-29 19:27 | Emergency (ER) | payer OTHER, MEDICARE, BC ==
[2016-08-29 19:28] VITALS: BMI 27.5
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
[2016-08-29 20:41] VITALS: RESP 16; O2SAT 99
[2016-08-29 22:29] VITALS: BP 188/90; PULSE 56
== END 2016-08-29 23:10 | disposition home or self-care (01) ==
LOC: ED 19:27
DX: Z04.1 Encounter for examination and observation following transport accident (principal); V49.19XA Passenger injured in collision with other motor vehicles in nontraffic accident, initial encounter; Y92.488 Other paved roadways as the place of occurrence of the external cause

== ENCOUNTER 2016-09-23 16:25 | Observation (INO) | payer MEDICARE, BC ==
[2016-09-23 16:27] VITALS: BMI 27.5
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
[2016-09-23 19:35] LABS: ADD MANUAL DIFF? NO
[2016-09-23 19:39] LABS: VENOUS BLOOD GAS BASE EXCESS -1.4 mmol/L (0.0-2.0); VENOUS BLOOD PH 7.28 (7.32-7.43)
[2016-09-23] MEDS ORDERED: Oxycodone/Acetaminophen 5/325 mg Tab PO STA (19:40)
[2016-09-23 19:46] LABS: BASO # 0.04 K/mm3 (0.0-2.0); BASO % 0.5 % (0.0-3.0); EOS # 0.5 (0.0-0.7); EOS % 6.2 % (1.5-5.0); GRAN # 5.68 (1.4-6.5); GRAN % 71.6 % (50.0-68.0); HEMATOCRIT 36.1 % (36.0-48.0); LYMPH # 1.2 (1.2-3.4); LYMPH % 15.3 % (22.0-35.0); MEAN CELL VOLUME 87.4 fL (80.0-105.0); MEAN CORPUSCULAR HEMOGLOBIN 27.8 pg (25.0-35.0); MEAN CORPUSCULAR HGB CONC 31.9 g/dl (31.0-37.0); MONO # 0.5 (0.1-0.6); MONO % 6.4 % (1.0-6.0); PLATELET COUNT 125 10^3/uL (120.0-450.0); RED CELL DISTRIBUTION WIDTH 17.8 % (11.5-14.5); WHITE BLOOD COUNT 7.9 10^3/ul (4.5-11.0)
[2016-09-23 19:50] LABS: ALB/GLOB RATIO 1.3 (1.1-1.8); BILIRUBIN,TOTAL 0.6 mg/dL (0.2-1.3); CALCIUM 10.2 mg/dL (8.4-10.5); MAGNESIUM 2.2 mg/dL (1.7-2.2); PHOSPHOROUS 2.9 mg/dL (2.5-4.5); TOTAL PROTEIN 7.1 g/dL (5.8-8.3)
[2016-09-23 19:51] LABS: INR 1.08 (0.93-1.08); PARTIAL THROMBOPLASTIN TIME 25.2 Seconds (23.7-30.8)
--- NOTE | 2016-09-23 20:44 | ED PDOC ---
Physical Exam Vital Signs Reviewed: Yes Vital Signs Temp Pulse Resp BP Pulse Ox 09/23/16 16:27 98.1 F 50 L 18 126/84 100 Temperature: Afebrile Blood Pressure: Normal Pulse: Bradycardic Respiratory Rate: Normal Appearance: Positive for: Well-Appearing, Non-Toxic, Comfortable Pain Distress: None Mental Status: Positive for: Alert and Oriented X 3 Medical Decision Making ED Course and Treatment: 09/23/16 19:00 Case signed out to me from the day shift by Dr. Lebron, pending labs, reevaluation and disposition. The patient is a 66 year old female who comes into the emergency department for evaluation of worsening lower extremity swelling, left heel pain, rash under the left breast and a sacral ulcer. Case was discussed with Dr. Morton, who states if patient labs are normal to discharge the patient home and he will follow up outpatient. Left foot X-ray, as read by me, shows not acute findings. Pending labs. Left lower extremity duplex ordered. elevated glucose will obs case d/w dr august and dr hodge 09/24/16 02:29 - Lab Interpretations Lab Results: 09/23/16 19:20 09/23/16 19:20 Lab Results 09/23/16 19:20: Sodium 129 L, Chloride 93 L, Potassium 6.0 H*, Carbon Dioxide 25 , Anion Gap 17, BUN 61 H, Creatinine 5.6 H, Est GFR ( Amer) 9, Est GFR ( Non-Af Amer) 8, Random Glucose 488 H* D, Calcium 10.2, Phosphorus 2.9, Magnesium 2.2, Total Bilirubin 0.6, AST 33, ALT 17, Alkaline Phosphatase 420 H, Total Protein 7.1, Albumin 3.9, Globulin 3.1, Albumin/Globulin Ratio 1.3 09/23/16 19:20: pO2 54, VBG pH 7.28 L, VBG pCO2 56.0, VBG HCO3 26.3, VBG Total CO2 28.0, VBG O2 Sat (Calc) 88.7 H, VBG Base Excess -1.4 L, VBG Potassium 6.8 H* , Sodium 129.0 L, Chloride 91.0 L, Glucose 535 H* D, Lactate 1.2, FiO2 21.0, Venous Blood Potassium 6.8 H* 09/23/16 19:20: PT 11.7, INR 1.08, APTT 25.2 09/23/16 19:20: WBC 7.9 D, RBC 4.13, Hgb 11.5 L, Hct 36.1, MCV 87.4, MCH 27.8, MCHC 31.9, RDW 17.8 H, Plt Count 125, Gran % 71.6 H, Lymph % (Auto) 15.3 L, [place] % (Auto) 6.4 H, Eos % (Auto) 6.2 H, Baso % (Auto) 0.5, Gran # 5.68, Lymph # 1.2, [place] # 0.5, Eos # 0.5, Baso # 0.04 I have reviewed the lab results: Yes - RAD Interpretation Radiology Orders: 09/23/16 17:22 FOOT LEFT 3 VIEWS ROUTINE [RAD] Stat 09/23/16 19:42 DUPLEX LOWER EXTRM VEIN LEFT [US] Stat - Medication Orders Current Medication Orders: Discontinued Medications Oxycodone/Acetaminophen (Percocet 5/325 Mg Tab) 1 tab PO STAT STA Stop: 09/23/16 19:41 Last Admin: 09/23/16 19:47 Dose: 1 tab - Scribe Statement The provider has reviewed the documentation as recorded by the Amadaibsudhir Ortiz Provider Scribe Attestation: All medical record entries made by the Scribe were at my direction and personally dictated by me. I have reviewed the chart and agree that the record accurately reflects my personal performance of the history, physical exam, medical decision making, and the department course for this patient. I have also personally directed, reviewed, and agree with the discharge instructions and disposition. Disposition/Present on Arrival - Present on Arrival Any Indicators Present on Arrival: No History of DVT/PE: No History of Uncontrolled Diabetes: No Urinary Catheter: No History of Decub. Ulcer: No History Surgical Site Infection Following: None - Disposition Have Diagnosis and Disposition been Completed?: Yes Diagnosis: Leg pain, Rash, Hyperkalemia, Hyperglycemia Disposition: HOSPITALIZED Disposition Time: 22:00 Patient Problems: Current Active Problems Problem Status Onset Leg pain Acute Rash Acute Condition: GOOD
[2016-09-23] MEDS ORDERED: Insulin Regular 1 UNITS/0.01 ML ML IVP STA (22:06)
[2016-09-23] MEDS ORDERED: Sod Polystyrene Sulf 15 gm/60 ml Oral Susp PO STA (22:07)
[2016-09-23] MEDS: Sodium Chloride 0.9% 1,000 ML IV SCH (22:52)
[2016-09-23] MEDS ORDERED: Insulin Lispro 1 UNITS/0.01 ML SC STA (23:33)
[2016-09-23] MEDS ORDERED: Levalbuterol 1.25 MG/3 ML Inhal Soln UD IH PRN (23:37)
--- NOTE | 2016-09-23 23:42 | CP.PCM.HP ---
<JasielElijah eban - Last Filed: 09/24/16 01:26> History of Present Illness - History of Present Illness History of Present Illness: CC: Heel Pain and Sacrum pain 66 y/o with PMH of ESRD ( on HD on T, , and fri), CAD with stents, and CABG, right BKA, IDDM, antiphospholipid syndrome, DVT, Parkinson disease, depression, seizure disorders, GERD, CHF, and HTN who is presenting to the ED with worsening heel pain. The patient was recently discharged being treated for an osteomyelitis and she finished her treatment at [facility] and was d/vanna home after her antibiotics had finished. She received all 5 weeks of required antibiotics. The patient states that her heel pain never really got back to baseline, and was hurting even at [facility]. Patient states she gets chest pain at rest, and is worsened by any amount of physical movement. She describes the chest pain as pressure like, intermittent, and again worse with any movement. She denies any current fevers/chills, LUNA, CP, SOB, abdominal pain, N/V/D, dysuria/freq/urg, or lower extremity pain/swelling. She states she has been taking all of her medications as prescribed and has not missed any doses. PMhx: ESRD, CAD/CABG, IDDM, Antiphospholipid Syndrome, DVT, Parkinsons, Depression, Seizure Disorder, GERD, CHF systolic and diastolic dysfunction Surgeries: CABG, L BKA Meds: Please refer to [facility] Allergies: cipro, Clarithro, Pepper Present on Admission - Present on Admission Any Indicators Present on Admission: Yes History of DVT/PE: Yes History of Uncontrolled Diabetes: Yes Decubitus Ulcer Present: Yes Decubitus Ulcer Stage: III Past Patient History - Infectious Disease Hx of Infectious Diseases: None - Tetanus Immunizations Tetanus Immunization: Unknown - Past Medical History & Family History Past Medical History?: Yes - Past Social History Smoking Status: Former Smoker - CARDIAC Hx Cardiac Disorders: Yes (cad, dvt) - PULMONARY Hx Respiratory Disorders: Yes (SMOKED CIGARETTES H/O) - NEUROLOGICAL Hx Neurological Disorder: Yes (syncope) - HEENT Hx HEENT Problems: Yes ([place] l ear, glasses) - RENAL Hx Dialysis: Yes ([facility]) - ENDOCRINE/METABOLIC Hx Endocrine Disorders: Yes Hx Diabetes Mellitus Type 2: Yes - HEMATOLOGICAL/ONCOLOGICAL Hx Blood Disorders: Yes - INTEGUMENTARY Hx Dermatological Problems: Yes (RIGHT BKA,LEFT GREAT TOE AMPUTATION) - MUSCULOSKELETAL/RHEUMATOLOGICAL Hx Musculoskeletal Disorders: Yes (r bka) - GASTROINTESTINAL Hx Gastrointestinal Disorders: Yes (hx c dif/diverticulitis/ reflux) - GENITOURINARY/GYNECOLOGICAL Hx Genitourinary Disorders: No - PSYCHIATRIC Hx Psychophysiologic Disorder: Yes Hx Anxiety: Yes Hx Substance Use: No - ANESTHESIA Hx Anesthesia: Yes Hx Anesthesia Reactions: No Hx Malignant Hyperthermia: No Meds Allergies/Adverse Reactions: Allergies Allergy/AdvReac Type Severity Reaction Status Date / Time ciprofloxacin Allergy SWELLING Verified 09/23/16 17:07 clarithromycin [From Biaxin] Allergy SWELLING Verified 09/23/16 17:07 pepper Allergy SWELLING Verified 09/23/16 17:07 Physical Exam - Constitutional Appears: Well, Non-toxic - Head Exam Head Exam: ATRAUMATIC - Eye Exam Eye Exam: EOMI, Normal appearance - ENT Exam ENT Exam: Mucous Membranes Moist - Neck Exam Neck exam: Positive for: Full Rom. Negative for: Lymphadenopathy - Respiratory Exam Respiratory Exam: Clear to Auscultation Bilateral, NORMAL BREATHING PATTERN. absent: Rales, Rhonchi, Wheezes - Cardiovascular Exam Cardiovascular Exam: REGULAR RHYTHM, Systolic Murmur - GI/Abdominal Exam GI & Abdominal Exam: Normal Bowel Sounds, Soft. absent: Tenderness - Rectal Exam Rectal Exam: Deferred - Extremities Exam Extremities exam: Positive for: full ROM, normal capillary refill, pedal edema, pedal pulses present. Negative for: calf tenderness, joint swelling, normal inspection, tenderness Additional comments: BKA on the left side, +2 pitting edema on the left, pulses present on the left at popliteal and at dorsal pedal; healing scab on the back of the left heel; not oozing and is clean dry and intact otherwise no signs of erythema or tenderness when touched - Back Exam Back exam: NORMAL INSPECTION. absent: CVA tenderness (L), CVA tenderness (R) - Neurological Exam Neurological exam: Alert, Oriented x3 - Psychiatric Exam Psychiatric exam: Normal Affect, Normal Mood - Skin Skin Exam: Warm Results - Vital Signs Recent Vital Signs: Last Vital Signs Temp 98.1 F 09/23/16 16:27 Pulse 50 L 09/23/16 16:27 Resp 18 09/23/16 16:27 BP 126/84 09/23/16 16:27 Pulse Ox 100 09/23/16 16:27 - Labs Result Diagrams: 09/23/16 19:20 09/23/16 19:20 Assessment & Plan - Assessment and Plan (Free Text) Assessment: 56yo F admitted for Sacral Ulcer and worsening heel pain Sacral Ulcer->Stage 3 -Surgical Consult; Sammy; please appreciate recs -f/u blood cultures Heel Pain/Osteomyelitis -Dr. Issa on consult -appreciate recs -compare ESR/CRP from previous admission; if elevated consider repeat MRI to see osteomyelitis resolution -will hold off on antibiotics for now as the patient has completed treatment -f/u blood cultures Subtherapeutic INR -titrate the patients warfarin; currently on 10mg nightly -INR checks ESRD ( on HD on , , and fri) -Dr. Golden Valentine on board -will be receiving dialysis tomorrow Anemia, most likely chronic of disease -stable -will monitor CAD with stents, and CABG, -c/w home meds -EKG unchanged from previous IDDM w/ current Hyperglycemia -c/w home meds -RISS -finger sticks -given a total of 16 units of lispro in ED antiphospholipid syndrome and previous DVT -c/w warfarin -get INR therapeutic Parkinson disease -c/w home meds Carbidopa/Levodopa depression -c/w Lexapro daily -patient would likely benefit from group therapy as she seems very isolated in the long run seizure disorders -c/w primidone GERD -c/w home meds CHF; chronic systolic and diastolic -does not appear to be in acute exacerbation -lungs are clear; no SOB; minimal leg swelling -start Imdur for anginal symptoms -appreciate cardio recs; Dr. De La Rosa -c/w Lisinopril 80mg, Clonidine 0.3mg PO BID, Carvedilol 3.125mg BID, Amlodipine 10mg PO daily, Amiodaraone 200mg PO daily HTN -c/w current management from d/c Prophylaxis Pepcid SCD contraindicated in DVT On Warfarin; subtherapeutic Renal Diet Will discuss with Dr. Praveen Cruz PGY1 Night Float Decision To Admit - Pt Status Changed To: Hospital Disposition Of: Inpatient Admission - Admit Certification Admit to Inpatient:: After my assessment, the patient will require hospitalization for at least two midnights. This is because of the severity of symptoms shown, intensity of services needed, and/or the medical risk in this patient being treated as an outpatient. - . Bed Request Type: Remote Telemetry <Alexey Morton - Last Filed: 09/26/16 17:17> Results - Vital Signs Recent Vital Signs: Last Vital Signs Temp 97.6 F 09/24/16 09:30 Pulse 64 09/24/16 17:31 Resp 20 09/24/16 09:30 BP 200/90 H 09/24/16 17:31 Pulse Ox 100 09/24/16 09:30 - Labs Result Diagrams: 09/24/16 07:00 09/24/16 07:00 Labs: Laboratory Results - last 24 hr 09/23/16 22:42 POC Glucose (mg/dL) 473 H* Attending/Attestation - Attestation I have personally seen and examined this patient.: Yes I have fully participated in the care of the patient.: Yes I have reviewed all pertinent clinical information: Yes Notes (Text): 09/26/16 17:17 Medical record note made by the resident after discussion with my direction and input after the patient was personally seen and examined by me. I have reviewed the chart and agree that the record accurately reflects by personal performance of the history, physical exam, data review, and medical decision-making, in the course for the patient. I have also personally directed the plan of care.
[2016-09-24] MEDS ORDERED: Insulin Lispro (HUMAlog) HIGH Coverage SC STA (03:03)
--- NOTE | 2016-09-24 05:50 | CP.PCM.CON ---
History of Present Illness - History of Present Illness History of Present Illness: Surgery Consult for Dr. Christianson 66 y/o with PMH of ESRD ( on HD on , , and fri), CAD with stents, and CABG, right BKA, IDDM, antiphospholipid syndrome, DVT, Parkinson disease, depression, seizure disorders, GERD, CHF, and HTN. Surgery is consulted for Sacral ulcer. Pt is admitted for osteomyelitis. The patient was recently discharged being treated for an osteomyelitis and she finished her treatment at [facility] and was d/ vanna home after her antibiotics had finished. She received all 5 weeks of required antibiotics. The patient states that her heel pain never really got back to baseline, and was hurting even at [facility] Patient states she gets chest pain at rest, and is worsened by any amount of physical movement. Pt reports that she had R BKA about a month ago and has been difficult to ambulate since then. Sacral ulcer appeared around then. Reports intermittent pain. Pt gets around on a wheelchair. She denies any current fevers/chills, LUNA, CP, SOB, abdominal pain, N/V/D, dysuria/freq/urg, or lower extremity pain/swelling. PMhx: ESRD, CAD/CABG, IDDM, Antiphospholipid Syndrome, DVT, Parkinsons, Depression, Seizure Disorder, GERD, CHF systolic and diastolic dysfunction Surgeries: CABG, L BKA Meds: Please refer to [facility] Allergies: Lucero hernandez Pepper Review of Systems - Review of Systems Review of Systems: See HPI Past Patient History - Infectious Disease Hx of Infectious Diseases: None - Tetanus Immunizations Tetanus Immunization: Unknown - Past Medical History & Family History Past Medical History?: Yes - Past Social History Smoking Status: Former Smoker - CARDIAC Hx Cardiac Disorders: Yes (CAD ,DVT) - PULMONARY Hx Respiratory Disorders: Yes (quit smoking) - NEUROLOGICAL Hx Dizziness: Yes (syncope) - HEENT Hx HEENT Problems: Yes Other/Comment: wear glasses,L ear [place] - RENAL Hx Chronic Kidney Disease: Yes Hx Dialysis: Yes ([facility] ,,[facility]) Hx Renal Failure: Yes - ENDOCRINE/METABOLIC Hx Endocrine Disorders: Yes Hx Diabetes Mellitus Type 2: Yes - HEMATOLOGICAL/ONCOLOGICAL Hx Blood Disorders: Yes - INTEGUMENTARY Other/Comment: L great toe amputated,RT BKA - MUSCULOSKELETAL/RHEUMATOLOGICAL Hx Falls: No Other/Comment: RT BKA - GASTROINTESTINAL Hx Diverticulitis: Yes Hx Gastroesophageal Reflux: Yes Other/Comment: hx of c-diff - GENITOURINARY/GYNECOLOGICAL Hx Genitourinary Disorders: No - PSYCHIATRIC Hx Anxiety: Yes - SURGICAL HISTORY Hx Amputation: Yes (L Great toe.RT BKA) - ANESTHESIA Hx Anesthesia: Yes Hx Anesthesia Reactions: No Hx Malignant Hyperthermia: No Meds Allergies/Adverse Reactions: Allergies Allergy/AdvReac Type Severity Reaction Status Date / Time ciprofloxacin Allergy SWELLING Verified 09/23/16 17:07 clarithromycin [From Biaxin] Allergy SWELLING Verified 09/23/16 17:07 pepper Allergy SWELLING Verified 09/23/16 17:07 - Medications Medications: Current Medications Acetaminophen (Tylenol 325mg Tab) 650 mg PO Q4H PRN PRN Reason: Fever >100.4 F Amiodarone HCl (Cordarone) 200 mg PO DAILY [facility] Amlodipine Besylate (Norvasc) 10 mg PO DAILY [facility] Aspirin (Ecotrin) 81 mg PO DAILY [facility] Atorvastatin Calcium (Lipitor) 80 mg PO DIN [facility] Last Admin: 09/23/16 23:48 Dose: 80 mg Carbidopa/Levodopa (Sinemet 10/100) 1 tab PO TID [facility] Carvedilol (Coreg) 3.125 mg PO Q12 [facility] Last Admin: 09/23/16 23:48 Dose: 3.125 mg Clonidine HCl (Catapres) 0.3 mg PO BID [facility] Escitalopram Oxalate (Lexapro) 10 mg PO DAILY [facility] Famotidine (Pepcid) 20 mg PO 1000,2200 [facility] Gabapentin (Neurontin) 100 mg PO BID [facility] PRN Reason: Protocol Last Admin: 09/23/16 23:48 Dose: 100 mg Sodium Chloride (Sodium Chloride 0.9%) 1,000 mls @ 80 mls/hr IV .[id number] [facility] Last Admin: 09/23/16 22:52 Dose: 80 mls/hr Insulin Detemir (Levemir) 10 unit SC ACBD [facility] Insulin Human Lispro (Humalog) 2 units SC ACHS [facility] Isosorbide Mononitrate (Imdur) 30 mg PO DAILY [facility] Levalbuterol HCl (Xopenex) 1.25 mg IH Q2H PRN PRN Reason: SOB Lisinopril (Zestril) 80 mg PO DAILY [facility] Pantoprazole Sodium (Protonix Ec Tab) 40 mg PO 0600 [facility] Primidone (Mysoline) 50 mg PO HS [facility] Sevelamer HCl (Renagel) 800 mg PO WM [facility] Warfarin Sodium (Coumadin) 10 mg PO 1800 [facility] PRN Reason: Protocol Zinc Sulfate (Zinc Sulfate 220 Mg Cap) 220 mg PO DAILY [facility] Physical Exam - Constitutional Appears: Well, No Acute Distress - Head Exam Head Exam: ATRAUMATIC, NORMAL INSPECTION, NORMOCEPHALIC - Eye Exam Eye Exam: EOMI, Normal appearance, PERRL Pupil Exam: NORMAL ACCOMODATION, PERRL - ENT Exam ENT Exam: Mucous Membranes Moist, Normal Exam - Neck Exam Neck exam: Positive for: Normal Inspection - Respiratory Exam Respiratory Exam: Clear to Auscultation Bilateral, NORMAL BREATHING PATTERN Additional comments: R chest cathater. - Cardiovascular Exam Cardiovascular Exam: REGULAR RHYTHM - GI/Abdominal Exam GI & Abdominal Exam: Normal Bowel Sounds, Soft. absent: Tenderness - Extremities Exam Extremities exam: Negative for: full ROM, tenderness Additional comments: R BKA - Back Exam Back exam: absent: NORMAL INSPECTION Additional comments: Stage I 3cm erythema. NT. 1cm brown central discoloration - Neurological Exam Neurological exam: Alert, CN II-XII Intact, Normal Gait, Reflexes Normal - Psychiatric Exam Psychiatric exam: Normal Affect, Normal Mood - Skin Skin Exam: Dry, Erythema, Intact, Warm Results - Vital Signs Recent Vital Signs: Last Vital Signs Temp 97.7 F 09/24/16 02:47 Pulse 50 L 09/24/16 02:47 Resp 18 09/24/16 02:47 BP 150/70 09/24/16 02:47 Pulse Ox 99 09/24/16 02:47 - Labs Result Diagrams: 09/23/16 19:20 09/23/16 19:20 Labs: Laboratory Results - last 24 hr 09/24/16 01:34 POC Glucose (mg/dL) 453 H* Assessment & Plan - Assessment and Plan (Free Text) Assessment: Sacral ulcer stage I /II -Turn q2 -Optiform -Medical management -No surgical intervention at this time Will TIEN Christianson
[2016-09-24] MEDS ORDERED: Pantoprazole 40 mg EC Tab PO SCH (06:00)
[2016-09-24] MEDS ORDERED: Insulin Lispro (HUMAlog) HIGH Coverage SC SCH (07:30)
[2016-09-24 07:45] LABS: ADD MANUAL DIFF? NO
[2016-09-24 07:49] LABS: BASO # 0.05 K/mm3 (0.0-2.0); BASO % 0.8 % (0.0-3.0); EOS # 0.5 (0.0-0.7); EOS % 8.2 % (1.5-5.0); GRAN # 4.03 (1.4-6.5); HEMATOCRIT 33.2 % (36.0-48.0); LYMPH # 1.2 (1.2-3.4); LYMPH % 18.8 % (22.0-35.0); MEAN CELL VOLUME 86.9 fL (80.0-105.0); MEAN CORPUSCULAR HEMOGLOBIN 27.5 pg (25.0-35.0); MEAN CORPUSCULAR HGB CONC 31.6 g/dl (31.0-37.0); MEAN PLATELET VOLUME 11.8 fl (7.0-11.0); MONO # 0.4 (0.1-0.6); MONO % 6.2 % (1.0-6.0); PLATELET COUNT 118 10^3/uL (120.0-450.0); RED CELL DISTRIBUTION WIDTH 17.9 % (11.5-14.5); WHITE BLOOD COUNT 6.1 10^3/ul (4.5-11.0)
[2016-09-24 07:58] LABS: ALB/GLOB RATIO 1.2 (1.1-1.8); BILIRUBIN,TOTAL 0.5 mg/dL (0.2-1.3); CALCIUM 9.7 mg/dL (8.4-10.5); PHOSPHOROUS 3.2 mg/dL (2.5-4.5); POTASSIUM 4.6 mmol/L (3.6-5.0); TOTAL PROTEIN 6.4 g/dL (5.8-8.3)
[2016-09-24 08:16] LABS: INR 1.1 (0.93-1.08)
[2016-09-24 08:25] LABS: MAGNESIUM 2.2 mg/dL (1.7-2.2)
--- NOTE | 2016-09-24 08:52 | US ---
PROCEDURE: Left lower extremity venous US HISTORY: Leg pain and swelling. Evaluate for DVT. PHYSICIAN(S): Carl Morris MD. TECHNIQUE: Duplex sonography and color-flow Doppler with graded compression were used to evaluate the deep venous system of the left lower extremity. FINDINGS: The visualized deep venous system of the left lower extremity is sonographically normal and compressible. Normal wave forms and augmentation are seen. There is no sonographic evidence for deep venous thrombosis in the visualized segments of the left lower extremity. IMPRESSION: 1. No sonographic evidence for deep venous thrombosis in the visualized segments of the left lower extremity.
--- NOTE | 2016-09-24 09:12 | RAD ---
PROCEDURE: Left Foot Radiographs. HISTORY: heal pain r/o osteo COMPARISON: 08/09/2016. FINDINGS: BONES: Status post amputation of the great toe. There is diffuse bone demineralization. There is no acute displaced fracture or bone destruction. Bone alignment is normal. JOINTS: Normal. SOFT TISSUES: There is severe diffuse soft tissue swelling in the dorsum of the foot. . OTHER FINDINGS: Atherosclerotic vascular calcifications are present. . IMPRESSION: No radiographic evidence for osteomyelitis. Severe soft tissue swelling in the dorsum of the foot may represent cellulitis. No acute displaced fracture or dislocation.
[2016-09-24] MEDS: Insulin Lispro 1 UNITS/0.01 ML SC SCH ×3 (09:15→17:22)
[2016-09-24 09:31] VITALS: RESP 20; TEMP 97.6; O2SAT 100
[2016-09-24] MEDS: Insulin Detemir 100 units/ml Vial (Levemir) SC SCH ×2 (10:29→17:33)
[2016-09-24] MEDS: Sodium Chloride 0.9% 1,000 ML IV SCH (10:31)
--- NOTE | 2016-09-24 10:48 | CP.PCM.PN ---
Subjective - Date & Time of Evaluation Date of Evaluation: 09/24/16 Time of Evaluation: 07:00 - Subjective Subjective: Consultation. Note: The dictation system is not working. 66 y/o woman well known to me. Admitted with heel pain and a variety of complaunts from the [place]. No CP this AM. No SOB No orthop., PND, Syncope, Dizziness, Cough, Sputum Production, Hemoptysis. PMH: see problem list below Meds: see below Allergy: Cipro, Claithromycin SH: [place] resident recently. No tobacco or ETOH FH: not contributory 10 point ROS otherwise unremarkable PE: Lungs: clear Cor.: S1S2 Abd.: soft Ext. no edema. foot bandaged Neuro.: alert Psych: Nl mood and affect Skin warm and dry. Sacral decub noted. Left Foot Xray: No OM, Swell dorsum c/w cellulitis Ext U/S: No DVT Objective - Vital Signs/Intake and Output Vital Signs (last 24 hours): Temp Pulse Resp BP Pulse Ox 97.6 F 51 L 20 186/81 H 100 09/24/16 09:30 09/24/16 10:27 09/24/16 09:30 09/24/16 10:30 09/24/16 09:30 - Medications Medications: Current Medications Acetaminophen (Tylenol 325mg Tab) 650 mg PO Q4H PRN PRN Reason: Fever >100.4 F Amiodarone HCl (Cordarone) 200 mg PO DAILY [facility] Last Admin: 09/24/16 10:26 Dose: Not Given Amlodipine Besylate (Norvasc) 10 mg PO DAILY [facility] Last Admin: 09/24/16 10:30 Dose: Not Given Aspirin (Ecotrin) 81 mg PO DAILY [facility] Last Admin: 09/24/16 10:27 Dose: 81 mg Atorvastatin Calcium (Lipitor) 80 mg PO DIN [facility] Last Admin: 09/23/16 23:48 Dose: 80 mg Carbidopa/Levodopa (Sinemet 10) 1 tab PO TID [facility] Last Admin: 09/24/16 10:30 Dose: 1 tab Carvedilol (Coreg) 3.125 mg PO Q12 [facility] Last Admin: 09/24/16 10:27 Dose: Not Given Clonidine HCl (Catapres) 0.3 mg PO BID [facility] Last Admin: 09/24/16 10:24 Dose: Not Given Escitalopram Oxalate (Lexapro) 10 mg PO DAILY [facility] Last Admin: 09/24/16 10:29 Dose: 10 mg Famotidine (Pepcid) 20 mg PO 1000,2200 [facility] Last Admin: 09/24/16 10:30 Dose: 20 mg Gabapentin (Neurontin) 100 mg PO BID [facility] PRN Reason: Protocol Last Admin: 09/24/16 10:29 Dose: 100 mg Sodium Chloride (Sodium Chloride 0.9%) 1,000 mls @ 80 mls/hr IV .[id number] [facility] Last Admin: 09/24/16 10:31 Dose: 80 mls/hr Insulin Detemir (Levemir) 10 unit SC ACBD [facility] Last Admin: 09/24/16 10:29 Dose: Not Given Insulin Human Lispro (Humalog) 2 units SC ACHS [facility] Last Admin: 09/24/16 09:15 Dose: Not Given Isosorbide Mononitrate (Imdur) 30 mg PO DAILY [facility] Last Admin: 09/24/16 10:28 Dose: Not Given Levalbuterol HCl (Xopenex) 1.25 mg IH Q2H PRN PRN Reason: SOB Lisinopril (Zestril) 80 mg PO DAILY [facility] Last Admin: 09/24/16 10:31 Dose: Not Given Pantoprazole Sodium (Protonix Ec Tab) 40 mg PO 0600 [facility] Last Admin: 09/24/16 06:08 Dose: 40 mg Primidone (Mysoline) 50 mg PO HS [facility] Sevelamer HCl (Renagel) 800 mg PO WM [facility] Last Admin: 09/24/16 10:30 Dose: 800 mg Warfarin Sodium (Coumadin) 10 mg PO 1800 [facility] PRN Reason: Protocol Zinc Sulfate (Zinc Sulfate 220 Mg Cap) 220 mg PO DAILY [facility] Last Admin: 09/24/16 10:31 Dose: 220 mg - Labs Labs: 09/24/16 07:00 09/24/16 07:00 PT 11.9 Seconds (9.9-11.8) H 09/24/16 07:00 INR 1.10 (0.93-1.08) H 09/24/16 07:00 APTT 25.2 Seconds (23.7-30.8) 09/23/16 19:20 Assessment and Plan - Assessment and Plan (Free Text) Assessment: Left Heel Pain/OM/Cellulitis S/P recent pneumonia PVD CKD/HD CAD/CABG/Sternal Wound Infection Diabetes HBP PVD/Rt. BKA Toe amputation Anti-Phospholipid Syndrome DVT H/O Emboli to Kidney and Liver Anxiety/Depression GERD Parkinson's Disease Seizure Disorder Sacral decubitus Plan: As per medical team, Podiatry, Surgery, ID Continue cadiac meds Check ECG Review old records. Will follow.
--- NOTE | 2016-09-24 11:52 | CARD ---
APPROVED REPORT EKG Measurement Heart [id number] <Conclusion> Sinus bradycardia Left ventricular hypertrophy with repolarization abnormality Abnormal ECG
[2016-09-24 17:37] VITALS: BP 200/90; PULSE 64
--- NOTE | 2016-09-24 18:38 | CP.PCM.DIS ---
Provider - Provider Date of Admission: 09/23/16 22:09 Attending physician: Wm Aguirre MD Primary care physician: Alexey Morton MD Consults: Cardio: Estrella Nephro: Dong Pang Podiatry: Luis Manuel ID: [email or web address] Time Spent in preparation of Discharge (in minutes): 40 Diagnosis - Discharge Diagnosis (1) Heel pain, chronic Status: Chronic Priority: Medium (2) Hx of osteomyelitis Status: Resolved Priority: High (3) Parkinson disease Status: Chronic Priority: Medium (4) Diabetes Status: Chronic Priority: Medium Hospital Course - Lab Results Lab Results: Most Recent Lab Values WBC 6.1 10^3/ul (4.5-11.0) D 09/24/16 07:00 RBC 3.82 10^6/uL (3.5-6.1) 09/24/16 07:00 Hgb 10.5 gm/dL (12.0-16.0) L 09/24/16 07:00 Hct 33.2 % (36.0-48.0) L 09/24/16 07:00 MCV 86.9 fL (80.0-105.0) 09/24/16 07:00 MCH 27.5 pg (25.0-35.0) 09/24/16 07:00 MCHC 31.6 g/dl (31.0-37.0) 09/24/16 07:00 RDW 17.9 % (11.5-14.5) H 09/24/16 07:00 Plt Count 118 10^3/uL (120.0-450.0) L 09/24/16 07:00 MPV 11.8 fl (7.0-11.0) H 09/24/16 07:00 Gran % 66.0 % (50.0-68.0) 09/24/16 07:00 Lymph % (Auto) 18.8 % (22.0-35.0) L 09/24/16 07:00 [place] % (Auto) 6.2 % (1.0-6.0) H 09/24/16 07:00 Eos % (Auto) 8.2 % (1.5-5.0) H 09/24/16 07:00 Baso % (Auto) 0.8 % (0.0-3.0) 09/24/16 07:00 Gran # 4.03 (1.4-6.5) 09/24/16 07:00 Lymph # 1.2 (1.2-3.4) 09/24/16 07:00 [place] # 0.4 (0.1-0.6) 09/24/16 07:00 Eos # 0.5 (0.0-0.7) 09/24/16 07:00 Baso # 0.05 K/mm3 (0.0-2.0) 09/24/16 07:00 ESR 5 mm/hr (0.0-20.0) 09/24/16 07:30 PT 11.9 Seconds (9.9-11.8) H 09/24/16 07:00 INR 1.10 (0.93-1.08) H 09/24/16 07:00 APTT 25.2 Seconds (23.7-30.8) 09/23/16 19:20 pO2 54 mm/Hg (30-55) 09/23/16 19:20 VBG pH 7.28 (7.32-7.43) L 09/23/16 19:20 VBG pCO2 56.0 (40-60) 09/23/16 19:20 VBG HCO3 26.3 mmol/l (21-28) 09/23/16 19:20 VBG Total CO2 28.0 mmol.L (22-28) 09/23/16 19:20 VBG O2 Sat (Calc) 88.7 % (40-65) H 09/23/16 19:20 VBG Base Excess -1.4 mmol/L (0.0-2.0) L 09/23/16 19:20 VBG Potassium 6.8 mmol/L (3.6-5.2) H* 09/23/16 19:20 Sodium 129.0 mmol/L (132-148) L 09/23/16 19:20 Chloride 91.0 mmol/L (98-107) L 09/23/16 19:20 Glucose 535 mg/dl (65-105) H* D 09/23/16 19:20 Lactate 1.2 mmol/L (0.7-2.1) 09/23/16 19:20 FiO2 21.0 % 09/23/16 19:20 Sodium 133 mmol/L (132-148) 09/24/16 07:00 Potassium 4.6 mmol/L (3.6-5.0) 09/24/16 07:00 Chloride 98 mmol/L (98-107) 09/24/16 07:00 Carbon Dioxide 21 mmol/L (21-33) 09/24/16 07:00 Anion Gap 19 (10-20) 09/24/16 07:00 BUN 62 mg/dL (7-21) H 09/24/16 07:00 Creatinine 5.9 mg/dL (0.5-1.4) H 09/24/16 07:00 Est GFR ( Amer) 9 09/24/16 07:00 Est GFR (Non-Af Amer) 7 09/24/16 07:00 POC Glucose (mg/dL) 207 mg/dL (65-110) H 09/24/16 16:31 Random Glucose 126 mg/dL (70-110) H 09/24/16 07:00 Calcium 9.7 mg/dL (8.4-10.5) 09/24/16 07:00 Phosphorus 3.2 mg/dL (2.5-4.5) 09/24/16 07:00 Magnesium 2.2 mg/dL (1.7-2.2) 09/24/16 07:00 Total Bilirubin 0.5 mg/dL (0.2-1.3) 09/24/16 07:00 AST 25 U/L (15-39) 09/24/16 07:00 ALT 22 U/L (7-56) 09/24/16 07:00 Alkaline Phosphatase 277 U/L (38-133) H 09/24/16 07:00 C-React Prot High Sens 10.27 mg/L (1.00-3.00) H 09/24/16 07:30 Total Protein 6.4 g/dL (5.8-8.3) 09/24/16 07:00 Albumin 3.5 g/dL (3.0-4.8) 09/24/16 07:00 Globulin 2.9 gm/dL 09/24/16 07:00 Albumin/Globulin Ratio 1.2 (1.1-1.8) 09/24/16 07:00 Venous Blood Potassium 6.8 mmol/L (3.6-5.2) H* 09/23/16 19:20 - Hospital Course Hospital Course: This is a 66 yo F with PMH of ESRD (HD //Fri), CAD with stents and CABG, right BKA, IDDM, antiphospholipid syndrome, DVT, Parkinson disease, depression, seizure disorders, GERD, CHF, and HTN who presented to the ED with worsening heel pain. The patient was recently discharged being treated for an osteomyelitis and she finished her treatment at [facility] and was d/vanna home after her antibiotics had finished. She received all 5 weeks of required antibiotics. While here, she was seen by Podiatry, Cardio, ID, Nephro, and Surgery. As per ID, this is not osteomyelitis, and the patient doesn't need additional antibiotics. As per Cardio, continue current cardiac medications. As per Podiatry, weight offloading boot for the left heel and bactroban ointment for the heel, follow up as outpatient at the wound care center. As per Nephro, cleared for discharge after dialysis. As per Surgery, regular turning of patient and optifoam for stage 1 sacral wound, no surgical intervention needed. Patient was instructed to use the weight-offloading boot provided by Podiatry, to follow up with her PMD within 1 week, and to follow up at the Wound Care center. She expressed understanding and agreement with these instructions. All questions were answered to her satisfaction. Patient was then discharged to home. Patient seen, reviewed, and discussed with attending, Dr. Aguirre. Discharge Exam - Head Exam Head Exam: ATRAUMATIC, NORMAL INSPECTION, NORMOCEPHALIC - Eye Exam Eye Exam: EOMI, Normal appearance, Scleral icterus. absent: Conjunctival injection Pupil Exam: absent: Irregular, Unequal - ENT Exam ENT Exam: Mucous Membranes Moist - Neck Exam Neck exam: Full Rom, Normal Inspection - Respiratory Exam Respiratory Exam: Clear to PA & Lateral, NORMAL BREATHING PATTERN, UNREMARKABLE. absent: Accessory Muscle Use, Chest Wall Tenderness, Decreased Breath Sounds, Rales, Rhonchi, Wheezes - Cardiovascular Exam Cardiovascular Exam: REGULAR RHYTHM, RRR, +S1, +S2. absent: Bradycardia, Tachycardia, Irregular Rhythm, +S4 - GI/Abdominal Exam GI & Abdominal Exam: Normal Bowel Sounds, Soft, Unremarkable. absent: Diminished Bowel Sounds, Hyperactive Bowel Sounds, Hypoactive Bowel Sounds, Tenderness - Extremities Exam Additional comments: Left LE: chronic skin changes from mid-broderick to ankle, color changes associated with chronic insufficiency, +1-2 pitting edema, unable to palpate distal pulses , site of blackened skin along posterior inferior heel along (~1-2 cm diameter) Right LE: s/p BKA, wearing below knee prosthesis attachment site - Neurological Exam Neurological exam: Alert, Oriented x3 - Psychiatric Exam Psychiatric exam: Normal Affect, Normal Mood - Skin Skin Exam: Dry, Intact, Normal Color (except as noted in extremities exam), Warm Discharge Plan - Follow Up Plan Condition: GOOD Disposition: HOME/ ROUTINE Instructions: Osteomyelitis (DC), How to Turn a Person in Bed (DC), How to Prevent Pressure Ulcers (DC), Chronic Wound Care (DC), Pressure Ulcer (DC) Additional Instructions: Please follow up with your PMD within 1 week of discharge. Please follow up regularly at the Wound Care Center for management of your chronic lower extremity wounds. Please use the weight-offloading foam boot to prevent development of/worsening of your heel ulcer. Please resume home medications and take as prescribed. If you experience worsening or new and concerning symptoms, please present to your PMD's office or return to the hospital. Referrals: [facility] [Outside] Alexey Morton MD [Primary Care Provider] -
--- NOTE | 2016-09-24 20:22 | CP.PCM.CON ---
History of Present Illness - History of Present Illness History of Present Illness: CRF HD DM HTN PMC GERD PVD CAD DVT Past Patient History - Tetanus Immunizations Tetanus Immunization: Unknown - Past Medical History & Family History Past Medical History?: Yes - Past Social History Smoking Status: Former Smoker - CARDIAC Hx Cardiac Disorders: Yes (CAD ,DVT) - PULMONARY Hx Respiratory Disorders: Yes (quit smoking) - NEUROLOGICAL Hx Dizziness: Yes (syncope) - HEENT Hx HEENT Problems: Yes Other/Comment: wear glasses,L ear [place] - RENAL Hx Chronic Kidney Disease: Yes Hx Dialysis: Yes ([facility] T,TH,SAT) Hx Renal Failure: Yes - ENDOCRINE/METABOLIC Hx Endocrine Disorders: Yes Hx Diabetes Mellitus Type 2: Yes - HEMATOLOGICAL/ONCOLOGICAL Hx Blood Disorders: Yes - INTEGUMENTARY Other/Comment: L great toe amputated,RT BKA - MUSCULOSKELETAL/RHEUMATOLOGICAL Hx Falls: No Other/Comment: RT BKA - GASTROINTESTINAL Hx Diverticulitis: Yes Hx Gastroesophageal Reflux: Yes Other/Comment: hx of c-diff - GENITOURINARY/GYNECOLOGICAL Hx Genitourinary Disorders: No - PSYCHIATRIC Hx Anxiety: Yes - SURGICAL HISTORY Hx Amputation: Yes (L Great toe.RT BKA) - ANESTHESIA Hx Anesthesia: Yes Hx Anesthesia Reactions: No Hx Malignant Hyperthermia: No Meds Allergies/Adverse Reactions: Allergies Allergy/AdvReac Type Severity Reaction Status Date / Time ciprofloxacin Allergy SWELLING Verified 09/23/16 17:07 clarithromycin [From Biaxin] Allergy SWELLING Verified 09/23/16 17:07 pepper Allergy SWELLING Verified 09/23/16 17:07 Physical Exam - Constitutional Appears: Well - Head Exam Head Exam: ATRAUMATIC, NORMAL INSPECTION, NORMOCEPHALIC - Eye Exam Eye Exam: EOMI, Normal appearance, PERRL Pupil Exam: NORMAL ACCOMODATION, PERRL - ENT Exam ENT Exam: Mucous Membranes Moist, Normal Exam - Neck Exam Neck exam: Positive for: Normal Inspection - Respiratory Exam Respiratory Exam: Clear to Auscultation Bilateral, NORMAL BREATHING PATTERN - Cardiovascular Exam Cardiovascular Exam: REGULAR RHYTHM - GI/Abdominal Exam GI & Abdominal Exam: Normal Bowel Sounds, Soft. absent: Tenderness - Rectal Exam Rectal Exam: NORMAL INSPECTION - Exam Exam: Circumcision, NORMAL INSPECTION External exam: NORMAL EXTERNAL EXAM Speculum exam: NORMAL SPECULUM EXAM Bimanual exam: NORMAL BIMANUAL EXAM - Extremities Exam Extremities exam: Positive for: normal inspection - Expanded Lower Extremities Exam Left Foot/Toe exam: erythema (DRY SMALL LESION) - Back Exam Back exam: NORMAL INSPECTION - Neurological Exam Neurological exam: Alert, CN II-XII Intact, Normal Gait, Oriented x3, Reflexes Normal - Psychiatric Exam Psychiatric exam: Normal Affect, Normal Mood - Skin Skin Exam: Dry, Intact, Normal Color, Warm Results - Vital Signs Recent Vital Signs: Last Vital Signs Temp 97.6 F 09/24/16 09:30 Pulse 64 09/24/16 17:31 Resp 20 09/24/16 09:30 BP 200/90 H 09/24/16 17:31 Pulse Ox 100 09/24/16 09:30 - Labs Result Diagrams: 09/24/16 07:00 09/24/16 07:00 Labs: Laboratory Results - last 24 hr 09/24/16 09/24/16 09/24/16 01:34 07:00 07:00 WBC 6.1 D RBC 3.82 Hgb 10.5 L Hct 33.2 L MCV 86.9 MCH 27.5 MCHC 31.6 RDW 17.9 H Plt Count 118 L MPV 11.8 H Gran % 66.0 Lymph % (Auto) 18.8 L [place] % (Auto) 6.2 H Eos % (Auto) 8.2 H Baso % (Auto) 0.8 Gran # 4.03 Lymph # 1.2 [place] # 0.4 Eos # 0.5 Baso # 0.05 ESR PT INR Sodium 133 Potassium 4.6 Chloride 98 Carbon Dioxide 21 Anion Gap 19 BUN 62 H Creatinine 5.9 H Est GFR ( Amer) 9 Est GFR (Non-Af Amer) 7 POC Glucose (mg/dL) 453 H* Random Glucose 126 H Calcium 9.7 Phosphorus 3.2 Magnesium 2.2 Total Bilirubin 0.5 AST 25 ALT 22 Alkaline Phosphatase 277 H C-React Prot High Sens Total Protein 6.4 Albumin 3.5 Globulin 2.9 Albumin/Globulin Ratio 1.2 09/24/16 09/24/16 09/24/16 07:00 07:30 07:30 WBC RBC Hgb Hct MCV MCH MCHC RDW Plt Count MPV Gran % Lymph % (Auto) [place] % (Auto) Eos % (Auto) Baso % (Auto) Gran # Lymph # [place] # Eos # Baso # ESR 5 PT 11.9 H INR 1.10 H Sodium Potassium Chloride Carbon Dioxide Anion Gap BUN Creatinine Est GFR ( Amer) Est GFR (Non-Af Amer) POC Glucose (mg/dL) Random Glucose Calcium Phosphorus Magnesium Total Bilirubin AST ALT Alkaline Phosphatase C-React Prot High Sens 10.27 H Total Protein Albumin Globulin Albumin/Globulin Ratio 09/24/16 09/24/16 08:59 16:31 WBC RBC Hgb Hct MCV MCH MCHC RDW Plt Count MPV Gran % Lymph % (Auto) [place] % (Auto) Eos % (Auto) Baso % (Auto) Gran # Lymph # [place] # Eos # Baso # ESR PT INR Sodium Potassium Chloride Carbon Dioxide Anion Gap BUN Creatinine Est GFR ( Amer) Est GFR (Non-Af Amer) POC Glucose (mg/dL) 58 L 207 H Random Glucose Calcium Phosphorus Magnesium Total Bilirubin AST ALT Alkaline Phosphatase C-React Prot High Sens Total Protein Albumin Globulin Albumin/Globulin Ratio Assessment & Plan (1) Diabetic foot ulcer Status: Acute - Assessment and Plan (Free Text) Assessment: LEFT HEEL DRY LESION Plan: NO ABX D/W PMD AND STAFF WORK UP OUT PT - Date & Time Date: 09/24/16 Time: 09:00
== END 2016-09-24 19:02 | disposition home or self-care (01) ==
LOC: ED 16:25 → ERH 22:09 → 3RNO 09-24 01:39
PROVIDERS: ADMIT Internal Medicine; ATTEND Internal Medicine
DX: E11.621 Type 2 diabetes mellitus with foot ulcer (principal); E11.69 Type 2 diabetes mellitus with other specified complication; E11.65 Type 2 diabetes mellitus with hyperglycemia; E11.51 Type 2 diabetes mellitus with diabetic peripheral angiopathy without gangrene; E11.22 Type 2 diabetes mellitus with diabetic chronic kidney disease; N18.6 End stage renal disease; M86.9 Osteomyelitis, unspecified; K21.9 Gastro-esophageal reflux disease without esophagitis; I50.42 Chronic combined systolic (congestive) and diastolic (congestive) heart failure; D63.8 Anemia in other chronic diseases classified elsewhere; D68.61 Antiphospholipid syndrome; E87.5 Hyperkalemia; F32.89 Other specified depressive episodes; F41.9 Anxiety disorder, unspecified; G20 Parkinson's disease; G40.909 Epilepsy, unspecified, not intractable, without status epilepticus; I13.2 Hypertensive heart and chronic kidney disease with heart failure and with stage 5 chronic kidney disease, or end stage renal disease; I25.10 Atherosclerotic heart disease of native coronary artery without angina pectoris; Z79.4 Long term (current) use of insulin; Z79.82 Long term (current) use of aspirin; Z79.899 Other long term (current) drug therapy; Z86.718 Personal history of other venous thrombosis and embolism; Z87.01 Personal history of pneumonia (recurrent); Z87.891 Personal history of nicotine dependence; Z89.511 Acquired absence of right leg below knee; Z89.412 Acquired absence of left great toe; Z95.1 Presence of aortocoronary bypass graft; Z95.5 Presence of coronary angioplasty implant and graft; Z99.2 Dependence on renal dialysis; M79.606 Pain in leg, unspecified; R21 Rash and other nonspecific skin eruption; Z88.1 Allergy status to other antibiotic agents; Z91.018 Allergy to other foods; L89.152 Pressure ulcer of sacral region, stage 2
CPT/HCPCS: 36415; 73630; 80053; 82803; 82948; 83735; 84100; 85025; 85610; 85651; 85730; 86140; 87040; 93005; 93971; 96372; 96374; 99285; G0378; J7040

== ENCOUNTER 2016-10-01 17:03 | Inpatient (IN) | payer MEDICARE, BC ==
[2016-10-01 17:03] VITALS: BMI 27.5
--- NOTE | 2016-10-01 17:38 | ED PDOC ---
Arrival/HPI - General Chief Complaint: Trauma Time Seen by Provider: 10/01/16 17:13 Historian: Patient, Family - History of Present Illness Narrative History of Present Illness (Text): 10/01/16 17:18 A 66 year old female presents to the emergency department, accompanied by family , for evaluation after a syncopal episode. Patient states she does not recall the event. Currently the patient is complaining of right knee pain and an abrasion to the face. She denies any chest pain, dizziness, or other complaints at this time. Patient can not recall when she last had a tetanus shot. PMD: Dr. Eller Time/Duration: Prior to Arrival Symptom Onset: Sudden Symptom Course: Other Quality: Other Activities at Onset: Rest Context: Home Past Medical History - Provider Review Nursing Documentation Reviewed: Yes - Infectious Disease Hx of Infectious Diseases: None - Tetanus Immunization Tetanus Immunization: Unknown - Cardiac Hx Cardiac Disorders: Yes (CAD ,DVT) Hx Hypertension: Yes - Pulmonary Hx Respiratory Disorders: Yes - Neurological Hx Neurological Disorder: Yes Hx Dizziness: Yes (syncope) - HEENT Hx HEENT Disorder: Yes Other/Comment: wear glasses,L ear [place] - Renal Hx Renal Disorder: Yes Hx Dialysis: Yes ([facility] T,TH,SAT) Date of Last Dialysis Treatment: 10/01/16 Hx Renal Failure: Yes - Endocrine/Metabolic Hx Endocrine Disorders: Yes Hx Diabetes Mellitus Type 2: Yes - Hematological/Oncological Hx Blood Disorders: Yes - Integumentary Hx Dermatological Disorder: Yes Other/Comment: L great toe amputated,RT BKA - Musculoskeletal/Rheumatological Hx Musculoskeletal Disorders: Yes Hx Falls: No Other/Comment: RT BKA - Gastrointestinal Hx Gastrointestinal Disorders: Yes Hx Diverticulitis: Yes Hx Gastroesophageal Reflux: Yes Other/Comment: hx of c-diff - Genitourinary/Gynecological Hx Genitourinary Disorders: No - Psychiatric Hx Psychophysiologic Disorder: Yes Hx Anxiety: Yes Hx Depression: Yes Hx Substance Use: No - Surgical History Hx Amputation: Yes (L Great toe.RT BKA) Hx Coronary Artery Bypass Graft: Yes Hx Open Heart Surgery: Yes - Anesthesia Hx Anesthesia: Yes Hx Anesthesia Reactions: No Hx Malignant Hyperthermia: No - Suicidal Assessment Feels Threatened In Home Enviroment: No Family/Social History - Physician Review Nursing Documentation Reviewed: Yes Family/Social History: Unknown Family HX Smoking Status: Former Smoker Hx Alcohol Use: No Hx Substance Use: No Hx Substance Use Treatment: No Allergies/Home Meds Allergies/Adverse Reactions: Allergies ciprofloxacin Allergy (Verified 10/01/16 17:12) SWELLING hallucination clarithromycin [From Biaxin] Allergy (Verified 10/01/16 17:12) SWELLING pepper Allergy (Verified 10/01/16 17:12) SWELLING Home Medications: Home Meds Medication Instructions Recorded Confirmed Aspirin [Aspirin EC] 81 mg PO DAILY 05/10/15 10/01/16 Clonidine HCl [Catapres] 0.3 mg PO BID 07/20/16 10/01/16 Primidone [Mysoline] 50 mg PO DAILY 07/20/16 10/01/16 Amiodarone HCl [Pacerone] 200 mg PO DAILY 08/08/16 10/01/16 Gabapentin [Neurontin] 100 mg PO BID 08/08/16 10/01/16 Sertraline [Zoloft] 25 mg PO HS 08/08/16 10/01/16 Sevelamer [Renagel] 800 mg PO TID 08/08/16 10/01/16 Zinc [Zinc Sulfate 220 mg Cap] 220 mg PO DAILY 08/08/16 10/01/16 Omeprazole 20 mg PO DAILY 08/29/16 10/01/16 Albuterol/Ipratropium [Duoneb 3 3 ml IH Q6H 10/01/16 10/01/16 mg/0.5 mg (3 ml) UD] Alprazolam [Xanax] 0.5 mg PO TID 10/01/16 10/01/16 Carvedilol [Coreg] 6.25 mg PO Q12 10/01/16 10/01/16 Insulin Detemir [Levemir] 4 unit SC BID 10/01/16 10/01/16 oxyCODONE [oxyCODONE Immediate 1 tab PO QID 10/01/16 10/01/16 Release Tab] Physical Exam - Physical Exam Narrative Physical Exam (Text): - Review of Systems Constitutional: Normal. absent: Fatigue, Weight Change, Fevers Eyes: Normal ENT: Normal Respiratory: Normal absent: SOB, Cough, Sputum Cardiovascular: Syncope. absent: Chest pain, Palpitations Gastrointestinal: Normal absent: Abdominal pain, Diarrhea, Nausea, Vomiting Genitourinary: Normal. absent: Dysuria, Frequency, Hematuria Musculoskeletal: Right knee pain. absent: Arthralgias, Back Pain, Neck Pain Skin: Abrasion to the face. Neurological: Normal absent: Focal Weakness Endocrine: Normal Hemo/Lymphatic: Normal Psychiatric: Normal - Physical exam Patient appears age appropriate, speaking full sentences without difficulty - Systems Exam Head: Present: Superficial abrasion to the right forehead. Superficial abrasion to the right infraorbital region. Pupils: Present: PERRL Extraocular Muscles: Present: EOMI Conjunctiva: Present: Normal Mouth: Present: Moist Mucous Membranes Neck: Present: Normal Range of Motion. No: MIDLINE TENDERNESS, Paraspinal Tenderness Respiratory/Chest: Present: Clear to Auscultation, Good Air Exchange. No: Respiratory Distress, Accessory Muscle Use, Tachypneic Cardiovascular: Present: Regular Rate and Rhythm, Normal S1, S2, Peripheral Pulses Present. No: Murmurs Abdomen: Present: Normal Bowel Sounds, No: Tenderness, Peritoneal Signs, Rebound, Guarding, Distention Back: Present: Normal Inspection. No: Midline Tenderness, Paraspinal Tenderness Upper Extremity: Present: Superficial abrasion to the right wrist. No: Cyanosis , Edema Lower Extremity: Present: Right below the knee amputation. Left heel ulcer. No : Edema Neurological: Present: GCS=15, Speech Normal, cranial nerves II through XII fully intact with no cerebellar abnormality, neuro-sensory fully intact. No focal neurological deficits. Skin: Present: Warm, Dry, Normal Color. No: Rashes Lymphatic: Present: OX3, NI, NC Psychiatric: Present: Alert, Oriented x 3, Normal Insight, Normal Concentration No nasal bone deformity or tenderness, no facial or jaw pain/swelling. No neck midline tenderness, thoracic and lumbar spine with no midline tenderness. Right below the knee amputation. Pt moving b/l upper and lower extremities without difficulty, 5/5 strength, with full active and passive ROM. Distal neurovasc fully intact. Abd soft/nt/nd, no hematomas, no peritoneal signs. Neg. pelvic rock. Superficial abrasion to the right forehead. Superficial abrasion to the infraorbital region. Superficial abrasion to the right wrist. Vital Signs Reviewed: Yes Vital Signs Temp Pulse Resp BP Pulse Ox 10/01/16 21:01 58 L 17 129/78 98 10/01/16 19:20 57 L 19 173/66 H 97 10/01/16 17:12 97.9 F 58 L 18 168/73 H 96 Temperature: Afebrile Blood Pressure: Hypertensive Pulse: Bradycardic Respiratory Rate: Normal Appearance: Positive for: Well-Appearing, Non-Toxic, Comfortable Pain Distress: None Mental Status: Positive for: Alert and Oriented X 3 Medical Decision Making ED Course and Treatment: 10/01/16 17:18 Impression: A 66 year old female after a syncopal episode. Differential Diagnosis include but are not limited to: fracture vs. sprain vs. strain vs. intracranial abnormalities Plan: -- EKG -- Head CT -- Chest X-ray -- Right knee x-ray -- Right wrist x-ray -- Labs -- TDAP vaccine -- Reassess and disposition Progress Notes: EKG: Ordered, reviewed, and independently interpreted the EKG. Rate : 57 BPM Rhythm : Sinus bradycardia Interpretation : No ST-segment elevations, ST depression in the lateral lead, LVH. Interpreted by me. Comparison : No change from previous EKG on 09/24/16 for comparison. 10/01/16 18:44 Chest xray Impression: As read by me, shows no cardiomegaly, no pneumothorax, no effusion, no infiltrates. 10/01/16 20:50 R. femur fx. will be placed in post. leg splint. Tech and RN aware R. wrist with possible non-displaced distal radial fx. will be placed in wrist velcro splint LS xrays show spondylolysthesis. pt moving b/l LEs with no focal neurological deficits dw Dr. Garcia, covering for Dr. Morton, accepted to tele resident paged pt aware of and agrees with plan 10/01/16 21:18 CT [facility] IMPRESSION: 1. No acute intracranial hemorrhage or acute territorial type infarct. 2. There are scattered foci of hypodensity within the cerebral white matter, likely representing small vessel ischemic disease in a patient this age. 3. Stable atrophy. Dictated and Authenticated by: Reggie Reilly MD Dr. Brooks made aware of admission, states he will relay message to other residents - Lab Interpretations Lab Results: 10/01/16 17:40 10/01/16 17:40 Lab Results 10/01/16 17:40: Sodium 134, Potassium 4.7, Chloride 98, Carbon Dioxide 25, Anion Gap 16, BUN 25 H, Creatinine 3.9 H, Est GFR ( Amer) 14, Est GFR ( Non-Af Amer) 11, Random Glucose 256 H, Calcium 8.9, Total Bilirubin 0.7, AST 29 , ALT 18, Alkaline Phosphatase 332 H, Lactate Dehydrogenase 633, Total Creatine Kinase 77, Troponin I 0.05 D, Total Protein 6.9, Albumin 3.8, Globulin 3.1, Albumin/Globulin Ratio 1.2 10/01/16 17:40: PT 43.5 H*, INR 4.03 H*, APTT 40.6 H 10/01/16 17:40: WBC 6.1, RBC 4.32, Hgb 12.0, Hct 38.1, MCV 88.2, MCH 27.8, MCHC 31.5, RDW 18.2 H, Plt Count 122, Gran % 74.4 H, Lymph % (Auto) 10.4 L, [place] % ( Auto) 7.8 H, Eos % (Auto) 7.1 H, Baso % (Auto) 0.3, Gran # 4.50, Lymph # 0.6 L, [place] # 0.5, Eos # 0.4, Baso # 0.02 - RAD Interpretation Radiology Orders: 10/01/16 17:26 HEAD W/O CONTRAST [CT] Stat KNEE W PATELLA RIGHT 3 VIEW [RAD] Stat WRIST, RIGHT 3 VIEWS [RAD] Stat 10/01/16 17:27 CHEST ONE VIEW [RAD] Stat 10/01/16 18:30 LS SPINE AP/LAT [RAD] Stat - Medication Orders Current Medication Orders: Discontinued Medications Acetaminophen (Tylenol 325mg Tab) 975 mg PO STAT STA Stop: 10/01/16 20:11 Last Admin: 10/01/16 20:25 Dose: 975 mg Morphine Sulfate (Morphine) 6 mg IVP STAT STA Stop: 10/01/16 20:54 Last Admin: 10/01/16 21:07 Dose: 6 mg Tetanus/Reduced Diphtheria/Acell Pertussis (Boostrix Vaccine Inj) 0.5 ml IM .ONCE ONE Stop: 10/01/16 17:51 Last Admin: 10/01/16 18:16 Dose: 0.5 ml - Scribe Statement The provider has reviewed the documentation as recorded by the Leda Ortiz Provider Scribe Attestation: All medical record entries made by the Scribe were at my direction and personally dictated by me. I have reviewed the chart and agree that the record accurately reflects my personal performance of the history, physical exam, medical decision making, and the department course for this patient. I have also personally directed, reviewed, and agree with the discharge instructions and disposition. Disposition/Present on Arrival - Present on Arrival Any Indicators Present on Arrival: No History of DVT/PE: No History of Uncontrolled Diabetes: Yes Urinary Catheter: No History of Decub. Ulcer: Yes History Surgical Site Infection Following: None - Disposition Have Diagnosis and Disposition been Completed?: Yes Diagnosis: Syncope Disposition: HOSPITALIZED Disposition Time: 21:19 Patient Plan: Admission Condition: FAIR Discharge Instructions (ExitCare): Syncope (ED)
[2016-10-01] MEDS ORDERED: TDAP Vaccine 0.5 mL Syr IM ONE (17:50)
[2016-10-01 17:52] LABS: BASO # 0.02 K/mm3 (0.0-2.0); BASO % 0.3 % (0.0-3.0); EOS # 0.4 (0.0-0.7); EOS % 7.1 % (1.5-5.0); GRAN % 74.4 % (50.0-68.0); LYMPH # 0.6 (1.2-3.4); LYMPH % 10.4 % (22.0-35.0); MEAN CELL VOLUME 88.2 fL (80.0-105.0); MEAN CORPUSCULAR HEMOGLOBIN 27.8 pg (25.0-35.0); MEAN CORPUSCULAR HGB CONC 31.5 g/dl (31.0-37.0); MONO # 0.5 (0.1-0.6); MONO % 7.8 % (1.0-6.0); PLATELET COUNT 122 10^3/uL (120.0-450.0); RBC 4.32 10^6/uL (3.5-6.1); RED CELL DISTRIBUTION WIDTH 18.2 % (11.5-14.5); WHITE BLOOD COUNT 6.1 10^3/ul (4.5-11.0)
[2016-10-01 18:05] LABS: PARTIAL THROMBOPLASTIN TIME 40.6 Seconds (23.7-30.8); PROTHROMBIN TIME 43.5 Seconds (9.9-11.8)
[2016-10-01 18:07] LABS: ALB/GLOB RATIO 1.2 (1.1-1.8); ALBUMIN 3.8 g/dL (3.0-4.8); CALCIUM 8.9 mg/dL (8.4-10.5)
[2016-10-01 18:13] LABS: INR 4.03 (0.93-1.08)
[2016-10-01 18:18] LABS: TROPONIN I 0.05 ng/mL
--- NOTE | 2016-10-01 23:55 | CP.PCM.HP ---
History of Present Illness - History of Present Illness History of Present Illness: Eliot Campbell DO PGY-1 CC: Trauma HPI: Ms. Dickson is a 66 y/o female s/p RLE amputation below the knee ( 4 years ago) with a PMHx significant for ESRD on dialysis and IDDM, who presents with a c/o of falling while trying to get out of her wheelchair. Ms. Presley daughter stated that around 4 PM on 10/01, Ms. Dickson stood up from her wheelchair to get into a rocking chair, but lost her balance and fell on her right side, injuring the right side of her face, her right wrist, and her right knee. When her daughter went to check on her, Ms. Dickson was confused, said strange things, but quickly regained orientation. Ms. Presley daughter stated that this has happened two other times this year, and both times patient has been confused after the incident. Of note, patient was at dialysis today until 3 PM; a previous fall also occurred after her dialysis treatment. Neither Ms. Dickson nor her daughter knows what her glucose level was during these episodes. When Ms. Dickson was examined, she denied fevers, chills, nausea, vomiting, chest pain, SOB, or any other symptoms besides pain. Ms. Dickson was given morphine, Tylenol, and tetanus shot in the ED. PMHx: ESRD on Dialysis T/R/Sa, CAD/CABG, IDDIM, Antiphospholipid syndrome, Depression, Seizure Disorder, GERD, CHF Systolic and Diastolic Dysfunction and Parkinsons Disease. Past DVTs PSHx: CABG, R BKA Allergies: Cipro, Clarithro, Pepper SocHx: Denies etoh; Former smoker; Denies illicits FamHx: Non-contributory Meds: Reviewed ROS: Constitutional: pt denies fever, chills, generalized weakness ENT: pt denies dysphagia, ofalgia, hearing deficit, rhinorrhea Eyes: pt denies sudden loss of vision, diplopia, blurred vision MSK: pt denies muscle stiffness, joint pain, extremity cramping Cardio: pt denies cp, sob, dvt Pulm: pt admits to tightness in breathing; denies cough, hemoptysis, wheeze GI: pt denies loss of appetite, abdominal pain, constipation, melena, n/v/d : pt denies burning on urination, urinary frequency, hematuria, urinary urgency Neuro: pt denies paresis, paresthesia, dizziness, gaitan, numbness, tingling Derm: pt admits to LLE ankle lesion; denies skin changes, nail changes Endo: pt denies intolerance to heat/cold, diaphoresis, night sweats, polydipsia Psych: pt denies anxiety, depression, mood changes Present on Admission - Present on Admission Any Indicators Present on Admission: No Past Patient History - Infectious Disease Hx of Infectious Diseases: None - Tetanus Immunizations Tetanus Immunization: Unknown - Past Medical History & Family History Past Medical History?: Yes - Past Social History Smoking Status: Former Smoker - CARDIAC Hx Cardiac Disorders: Yes (CAD ,DVT) Hx Hypertension: Yes - PULMONARY Hx Respiratory Disorders: Yes - NEUROLOGICAL Hx Neurological Disorder: Yes Hx Dizziness: Yes (syncope) - HEENT Hx HEENT Problems: Yes Other/Comment: wear glasses,L ear [place] - RENAL Hx Chronic Kidney Disease: Yes Hx Dialysis: Yes ([facility] T,TH,SAT) Date of Last Dialysis Treatment: 10/01/16 Hx Renal Failure: Yes - ENDOCRINE/METABOLIC Hx Endocrine Disorders: Yes Hx Diabetes Mellitus Type 2: Yes - HEMATOLOGICAL/ONCOLOGICAL Hx Blood Disorders: Yes - INTEGUMENTARY Hx Dermatological Problems: Yes Other/Comment: L great toe amputated,RT BKA - MUSCULOSKELETAL/RHEUMATOLOGICAL Hx Musculoskeletal Disorders: Yes Hx Falls: No Other/Comment: RT BKA - GASTROINTESTINAL Hx Gastrointestinal Disorders: Yes Hx Diverticulitis: Yes Hx Gastroesophageal Reflux: Yes Other/Comment: hx of c-diff - GENITOURINARY/GYNECOLOGICAL Hx Genitourinary Disorders: No - PSYCHIATRIC Hx Psychophysiologic Disorder: Yes Hx Anxiety: Yes Hx Depression: Yes Hx Substance Use: No - SURGICAL HISTORY Hx Amputation: Yes (L Great toe.RT BKA) Hx Coronary Artery Bypass Graft: Yes Hx Open Heart Surgery: Yes - ANESTHESIA Hx Anesthesia: Yes Hx Anesthesia Reactions: No Hx Malignant Hyperthermia: No Meds Allergies/Adverse Reactions: Allergies Allergy/AdvReac Type Severity Reaction Status Date / Time ciprofloxacin Allergy SWELLING Verified 10/01/16 17:12 clarithromycin [From Biaxin] Allergy SWELLING Verified 10/01/16 17:12 pepper Allergy SWELLING Verified 10/01/16 17:12 Physical Exam - Head Exam Additional comments: Physical Exam: VS: As above Constitutional: obese female, a&o x 4, nad Head and Neck: neck supple, no jvd, trachea midline, carotid midline, no cervical/head mass Eyes: julio, nonicteric sclera, eom intact ENT: auditory acuity grossly intact, throat not congested, no nasal deformity Cardio: +Systolic Murmur at aortic listening post +Dialysis Port R Thorax, + Old Venous Graft LUE, rrr, no carotid bruit, nml s1, s2 Pulm: +RLL, RUL, RML wheeze, no accessory muscle use, equal nml breath sounds bilaterally Abd: s/nt/nd, nbs x 4 q, no palpable masses Derm: +LLE ankle lesion Extr: no edema, no cyanosis, no calf tenderness, no lesions, no varicosities Neuro: cn II-XII grossly intact, ue and le 3+ muscle strength bilaterally, no los ue, le bilaterally and core Results - Vital Signs Recent Vital Signs: Last Vital Signs Temp 97.9 F 10/01/16 17:12 Pulse 57 L 10/01/16 22:39 Resp 16 10/01/16 22:39 BP 127/80 10/01/16 22:39 Pulse Ox 99 10/01/16 22:39 - Labs Result Diagrams: 10/01/16 17:40 10/01/16 17:40 Assessment & Plan - Assessment and Plan (Free Text) Assessment: A/P: 1.) Trauma s/p Fall, 2/2 possible syncopal event VS loss of balance - ECHO ordered - Carotid U/S ordered - TSH ordered - Orthostatics not ordered due to BKA - EKG - XR Wrist shows possible radial fracture - XR RLE shows femur fracture - Ortho consulted (Rishabh) - Cardio consulted (Elieser) - Hydromorphone 2.) LLE Ankle Cellulitis - F/U oupatient, patient has been prescribed ABx - Wound Cuture 3.) H/O ESRD on Dialysis - F/U outpatient with validation engineer; T/R/Sa Dialysis, possible Nephro consult 4.) H/O CAD, CHF, HTN - Continue amiodarone, amlodipine, ASA 81, Atorvastatin, Carvedilol, Clonidine, Hydralazine, lisinopril 5.) H/O IDDM - Continue Insulin detemir, lispro 6.) H/O Seizure Disorder - Continue Gabapentin, Primidone 7.) H/O Parkinsons - Continue Carbidopa/Levodopa 8.) H/O GERD - Continue Pantoprazole 9.) H/O Depression, Anxiety - Continue Escitalopram, Alprazolam, Sertraline 10.) H/O Antiphospholipid syndrome - Continue Sevelamer, Zn 11.) Check AM Labs - CBC, INR 12.) H/O DVTs - ASA 81, no heparin at this time
[2016-10-02] MEDS: Albuterol-Ipratrop 3 mg / 0.5 (3 ml) UD IH PRN ×3 (02:53→11:09)
[2016-10-02 07:44] LABS: BASO # 0.03 K/mm3 (0.0-2.0); BASO % 0.3 % (0.0-3.0); EOS # 0.3 (0.0-0.7); GRAN # 7.24 (1.4-6.5); GRAN % 82.7 % (50.0-68.0); HEMOGLOBIN 10.5 gm/dL (12.0-16.0); LYMPH # 0.7 (1.2-3.4); LYMPH % 7.4 % (22.0-35.0); MEAN CELL VOLUME 88.5 fL (80.0-105.0); MEAN CORPUSCULAR HEMOGLOBIN 27.4 pg (25.0-35.0); MEAN PLATELET VOLUME 11.2 fl (7.0-11.0); MONO # 0.6 (0.1-0.6); MONO % 6.6 % (1.0-6.0); PLATELET COUNT 119 10^3/uL (120.0-450.0); RBC 3.83 10^6/uL (3.5-6.1); RED CELL DISTRIBUTION WIDTH 18.2 % (11.5-14.5); WHITE BLOOD COUNT 8.8 10^3/ul (4.5-11.0)
[2016-10-02 07:52] LABS: INR 2.93 (0.93-1.08); PROTHROMBIN TIME 31.6 Seconds (9.9-11.8)
--- NOTE | 2016-10-02 08:01 | CP.PCM.CON ---
History of Present Illness - History of Present Illness History of Present Illness: Pt with ESRD on HD came to the ER after a fall. She had a full treatment on HD yesterday and went home. She had a fall and came in to the ER for evaluation. She was discharged from [facility] a few days ago. She is complaining of pain in the R leg. No dizziness, syncope. She had no Cp/SOB. No F/C/LUNA. I have been asked to continue her HD treatment while she is in the hospital. Review of Systems - Review of Systems Systems not reviewed;Unavailable: Altered Mental Status - Constitutional Constitutional: Frequent Falls, Lethargy. absent: Daytime Sleepiness, Malaise, Snoring - EENT Eyes: Pain. absent: Diplopia, Itchy Eyes, Loss of Peripheral Vision, Requires Corrective Lenses Ears: absent: Decreased Hearing, Disequilibrium, Dizziness Nose/Mouth/Throat: absent: Nasal Obstruction, Post Nasal Drip, Sinus Pressure, Bleeding Gums, Dry Mouth, Dysphagia, Hoarsness, Odynophagia - Breasts Breasts: absent: Change in Shape, Mass, Pain - Cardiovascular Cardiovascular: absent: Claudication, Diaphoresis, Edema, Irregular Heart Rhythm , Leg Edema, Lightheadedness, Orthopnea, Paroxysmal Nocturnal Dyspnea - Respiratory Respiratory: absent: Dyspnea, Hemoptysis - Gastrointestinal Gastrointestinal: absent: Abdominal Pain, Change in Stool Character, Cramping, Dyspepsia, Dysphagia, Hematochezia, Nausea - Genitourinary Genitourinary: absent: Hematuria, Urinary Hesitance, Urinary Urgency, Hx Renal/ Bladder Calculi - Integumentary Integumentary: absent: Furuncle, New Lesions, Rash, Skin Ulcer, Swelling - Neurological Neurological: absent: Disequilibrium, Lack of Coordination, Memory Loss, Radicular Pain, Syncope - Psychiatric Psychiatric: absent: Change in Appetite, Confusion, Homicidal Ideation, Hopelessness, Memory Loss, Panic Attacks - Endocrine Endocrine: absent: Deepening of Voice, Increase in Ring/Shoe/Hat Size - Hematologic/Lymphatic Hematologic: absent: Easy Bleeding, Easy Bruising Past Patient History - Infectious Disease Hx of Infectious Diseases: None - Tetanus Immunizations Tetanus Immunization: Unknown - Past Medical History & Family History Past Medical History?: Yes - Past Social History Smoking Status: Former Smoker - CARDIAC Hx Cardiac Disorders: Yes (CAD ,DVT) Hx Hypertension: Yes - PULMONARY Hx Respiratory Disorders: Yes - NEUROLOGICAL Hx Neurological Disorder: Yes Hx Dizziness: Yes (syncope) - HEENT Hx HEENT Problems: Yes Other/Comment: wear glasses,L ear [place] - RENAL Hx Chronic Kidney Disease: Yes Hx Dialysis: Yes ([facility] T,TH,SAT) Date of Last Dialysis Treatment: 10/01/16 Hx Renal Failure: Yes - ENDOCRINE/METABOLIC Hx Endocrine Disorders: Yes Hx Diabetes Mellitus Type 2: Yes - HEMATOLOGICAL/ONCOLOGICAL Hx Blood Disorders: Yes - INTEGUMENTARY Hx Dermatological Problems: Yes Other/Comment: L great toe amputated,RT BKA - MUSCULOSKELETAL/RHEUMATOLOGICAL Hx Musculoskeletal Disorders: Yes Hx Falls: No Other/Comment: RT BKA - GASTROINTESTINAL Hx Gastrointestinal Disorders: Yes Hx Diverticulitis: Yes Hx Gastroesophageal Reflux: Yes Other/Comment: hx of c-diff - GENITOURINARY/GYNECOLOGICAL Hx Genitourinary Disorders: No - PSYCHIATRIC Hx Psychophysiologic Disorder: Yes Hx Anxiety: Yes Hx Depression: Yes Hx Substance Use: No - SURGICAL HISTORY Hx Amputation: Yes (L Great toe.RT BKA) Hx Coronary Artery Bypass Graft: Yes Hx Open Heart Surgery: Yes - ANESTHESIA Hx Anesthesia: Yes Hx Anesthesia Reactions: No Hx Malignant Hyperthermia: No Meds Allergies/Adverse Reactions: Allergies Allergy/AdvReac Type Severity Reaction Status Date / Time ciprofloxacin Allergy SWELLING Verified 10/01/16 17:12 clarithromycin [From Biaxin] Allergy SWELLING Verified 10/01/16 17:12 pepper Allergy SWELLING Verified 10/01/16 17:12 - Medications Medications: Current Medications Albuterol/Ipratropium (Duoneb 3 Mg/0.5 Mg (3 Ml) Ud) 3 ml IH Q4H PRN PRN Reason: Shortness of Breath Last Admin: 10/02/16 07:29 Dose: 3 ml Alprazolam (Xanax) 0.5 mg PO TID PRN PRN Reason: Anxiety Amiodarone HCl (Cordarone) 200 mg PO DAILY [facility] Amlodipine Besylate (Norvasc) 10 mg PO DAILY [facility] Aspirin (Ecotrin) 81 mg PO DAILY [facility] Atorvastatin Calcium (Lipitor) 80 mg PO DIN [facility] Carbidopa/Levodopa (Sinemet 10/100) 1 tab PO TID [facility] Carvedilol (Coreg) 6.25 mg PO Q12 [facility] Clonidine HCl (Catapres) 0.3 mg PO BID [facility] Escitalopram Oxalate (Lexapro) 10 mg PO DAILY [facility] Gabapentin (Neurontin) 100 mg PO BID [facility] PRN Reason: Protocol Hydralazine HCl (Apresoline) 100 mg PO Q8H PRN PRN Reason: Systolic Blood Pressure Hydromorphone HCl (Dilaudid) 1.5 mg IVP Q4H PRN PRN Reason: Pain, severe (8-10) Insulin Detemir (Levemir) 4 unit SC BID [facility] Insulin Human Lispro (Humalog Med) 0 units SC ACHS [facility] PRN Reason: Protocol Lisinopril (Zestril) 80 mg PO DAILY [facility] Pantoprazole Sodium (Protonix Inj) 40 mg IVP DAILY [facility] Primidone (Mysoline) 50 mg PO DAILY [facility] Sertraline HCl (Zoloft) 25 mg PO HS [facility] Sevelamer HCl (Renagel) 800 mg PO TID [facility] Zinc Sulfate (Zinc Sulfate 220 Mg Cap) 220 mg PO DAILY [facility] Physical Exam - Constitutional Appears: Well - Head Exam Head Exam: ATRAUMATIC, NORMAL INSPECTION, NORMOCEPHALIC - Eye Exam Eye Exam: EOMI, Normal appearance, PERRL Pupil Exam: NORMAL ACCOMODATION, PERRL - ENT Exam ENT Exam: Mucous Membranes Moist, Normal Exam - Neck Exam Neck exam: Positive for: Normal Inspection - Respiratory Exam Respiratory Exam: Clear to Auscultation Bilateral, NORMAL BREATHING PATTERN - Cardiovascular Exam Cardiovascular Exam: REGULAR RHYTHM, RRR, +S1, +S2 - GI/Abdominal Exam GI & Abdominal Exam: Normal Bowel Sounds, Soft. absent: Mass, Pulsatile Mass, Rebound, Tenderness - Rectal Exam Rectal Exam: NORMAL INSPECTION - Extremities Exam Extremities exam: Positive for: normal inspection - Neurological Exam Neurological exam: Alert, CN II-XII Intact, Normal Gait, Reflexes Normal - Psychiatric Exam Psychiatric exam: Normal Affect, Normal Mood - Skin Skin Exam: Dry, Intact, Normal Color, Warm Results - Vital Signs Recent Vital Signs: Last Vital Signs Temp 98.5 F 10/02/16 00:01 Pulse 57 L 10/02/16 00:01 Resp 18 10/02/16 00:01 BP 130/79 10/02/16 00:01 Pulse Ox 99 10/02/16 00:01 - Labs Result Diagrams: 10/01/16 17:40 10/01/16 17:40 Assessment & Plan - Assessment and Plan (Free Text) Assessment: 1.) Fall 2.) Fraility 3.) ESRD on Dialysis 4.) CAD s/p CABG 5.) DM-2 6.) PAD 7.) Parkinsons 8.) GERD 9.) Depression, Anxiety 10.) Antiphospholipid syndrome 11.) DVT 12) HTN 13) Secondary hyperparathyroidism 14) Chronic Anemia 15) R BKA 16) L femoral bypass Plan: Pt going will need evaluation for syncope. On HTN meds, continue meds. Next HD on Friday. Renal diet. Ortho evaluation for R femur fx. Pt is at risk of post -op complications due to her multiple co-morbidities and frailty. Spoke to Dr Mon. She had CABG done about 1 yr ago at [facility]. - Date & Time Date: 10/02/16 Time: 08:01
[2016-10-02 08:08] LABS: ALB/GLOB RATIO 1.3 (1.1-1.8); ALBUMIN 3.8 g/dL (3.0-4.8); CALCIUM 9.2 mg/dL (8.4-10.5)
--- NOTE | 2016-10-02 08:15 | RAD ---
PROCEDURE: CHEST RADIOGRAPH, 1 VIEW HISTORY: cough COMPARISON: CT chest 08/09/2016 FINDINGS: LUNGS: Clear. Linear opacity at the left mid to lower lung zone and a patchy lucencies here probably relate to combine discoid atelectasis/scarring/pleural thickening with some traction bronchiectasis here. There may be some minimal traction bronchiectasis the right lung base medially. No interval consolidation appreciated. PLEURA: No pneumothorax . Since a prior snorkelling instructor exam comment each costophrenic angle is slightly blunted -interval small pleural effusions here are bleed most likely. Interval pleural thickening is another consideration. HEART Cardiomegaly as before. Intact midline sternal wires. Right central dialysis catheter in place - tip in right atrium. OSSEOUS STRUCTURES: No significant abnormalities. VISUALIZED UPPER ABDOMEN: Normal. OTHER FINDINGS: None. IMPRESSION: Interval small pleural effusions. The prior left mid to lower lung zone changes are similar appearing and detailed above Cardiomegaly midline sternotomy with right dialysis catheter in place. No navi pulmonary venous congestion
--- NOTE | 2016-10-02 08:26 | RAD ---
PROCEDURE: Right Wrist Radiographs. HISTORY: fall COMPARISON: None. FINDINGS: BONES: No fracture Subchondral sclerosis and osseous hypertrophy at 1st carpal metacarpal joint JOINTS: No dislocation. Osteoarthrosis 1st carpal metacarpal joint SOFT TISSUES: Extensive atherosclerotic vascular calcifications OTHER FINDINGS: None. IMPRESSION: No fracture appreciated. Osteoarthrosis. Atherosclerotic vascular disease
--- NOTE | 2016-10-02 08:31 | RAD ---
PROCEDURE: Right Knee Radiographs. HISTORY: fall COMPARISON: 09/06/2015 FINDINGS: BONES: Patient is status post [id number] amputation as before. Interval comminuted fractures of the distal femur metaphysis are suggested. The sliver like comminuted fracture fragments is slightly displaced medially on the frontal view. On the lateral view, there is volar apical angulation over riding suggested. The femoral heads which are osteopenic or maintained in the with the tibia. The patellofemoral articulation appears maintained fracture does however extend down to the superior patellar femoral articulation. JOINTS: Normal. No osteoarthritis. JOINT EFFUSION: Despite the comminuted fracture - no gross joint effusion is appreciated on these images OTHER FINDINGS: Heavy atherosclerotic vascular calcifications present IMPRESSION: Comminuted fracture with mild displacement comminuted fracture fragments and volar apical angulation in this patient with a [id number] amputation
--- NOTE | 2016-10-02 08:39 | CT ---
PROCEDURE: CT HEAD WITHOUT CONTRAST. HISTORY: fall, syncope COMPARISON: 07/20/2016 TECHNIQUE: Axial computed tomography images were obtained through the head/brain without intravenous contrast. Radiation dose: Total exam DLP = 726 mGy-cm. This CT exam was performed using one or more of the following dose reduction techniques: Automated exposure control, adjustment of the mA and/or kV according to patient size, and/or use of iterative reconstruction technique. FINDINGS: HEMORRHAGE: No intracranial hemorrhage. BRAIN: No mass effect or edema. Small of left basal ganglia lacune or infarct is suggest on the current exam. Appearance is slightly more conspicuous on this current exam Minimal cerebral atrophy changes are probable not too dissimilar to the prior exam VENTRICLES: Unremarkable. No hydrocephalus. CALVARIUM: Unremarkable. PARANASAL SINUSES: Unremarkable as visualized. No significant inflammatory changes. MASTOID AIR CELLS: Unremarkable as visualized. No inflammatory changes. OTHER FINDINGS: Right vertebral dural heavy atherosclerotic vascular calcification is present renoted. Additional calcifications atherosclerotic or also suggested posterior fossa. IMPRESSION: No intracranial hemorrhage or mass effect. Left basal ganglion lacunar infarct - slightly more conspicuous on the current exam. Minimal cerebral atrophy changes - no significant change here is appreciated. Atherosclerotic vascular calcifications - right vertebral artery most notable.
--- NOTE | 2016-10-02 09:32 | RAD ---
PROCEDURE: Radiographs of the Lumbar Spine. HISTORY: fall COMPARISON: No prior. FINDINGS: BONES: No evidence of compression fracture. Mild anterior listhesis of L4 over L5 DISC SPACES: Unremarkable. OTHER FINDINGS: Calcified aorta. Severe constipation IMPRESSION: No acute compression fracture
[2016-10-02] MEDS: HYDROmorphone 2 mg/ml ISec IVP PRN (09:33)
[2016-10-02] MEDS: Insulin Detemir 100 units/ml Vial (Levemir) SC SCH ×2 (10:50→18:41)
[2016-10-02] MEDS: Insulin Lispro (humaLOG) MEDIUM Coverage SC SCH ×2 (10:59→13:33)
--- NOTE | 2016-10-02 11:59 | CARD ---
APPROVED REPORT EKG Measurement Heart [id number] <Conclusion> Sinus bradycardia with 1st degree AV block Left ventricular hypertrophy with repolarization abnormality IVCD Inferior infarct, age undetermined STTW changes Prolonged QTc
[2016-10-02] MEDS ORDERED: Oxycodone/Acetaminophen 5/325 mg Tab PO PRN (13:45)
--- NOTE | 2016-10-02 15:53 | CP.PCM.PN ---
Addendum entered and electronically signed by Evan Contreras DO 10/02/16 17:44: Patient was seen and examined and discussed case at length with Dr. Huggins. Patient has elevated TSH likely as acute phase reactant so will not start levothyroxine. Discussed with Dr. Keating as well, patient scheduled for OR on Friday. Cardiology to see patient, multiple medical comorbidities. Will medically optimize. Continue to hold warfarin for now and recheck PT/INR tomorrow. Evan Contreras D.O. PGY-2 Original Note: <VONDA HUGGINS - Last Filed: 10/02/16 16:55> Subjective - Date & Time of Evaluation Date of Evaluation: 10/02/16 Time of Evaluation: 06:45 - Subjective Subjective: Vonda Huggins D.O. PGY1 - Internal Medicine Progress Note - [facility] Patient seen and examined at beside. Today is hospital day 2. Patient was admitted overnight for fall, concerning for syncope. Patient reports pain in her right leg stump, right wrist, and a headache. She denies any CP, SOB, focal weakness, confusion, memory loss, vision changes. Objective - Vital Signs/Intake and Output Vital Signs (last 24 hours): Temp Pulse Resp BP Pulse Ox 98.2 F 78 20 178/53 H 98 10/02/16 06:00 10/02/16 10:41 10/02/16 06:00 10/02/16 10:41 10/02/16 06:00 - Medications Medications: Current Medications Albuterol/Ipratropium (Duoneb 3 Mg/0.5 Mg (3 Ml) Ud) 3 ml IH Q4H PRN PRN Reason: Shortness of Breath Last Admin: 10/02/16 11:09 Dose: 3 ml Alprazolam (Xanax) 0.5 mg PO TID PRN PRN Reason: Anxiety Amiodarone HCl (Cordarone) 200 mg PO DAILY [facility] Last Admin: 10/02/16 10:41 Dose: 200 mg Amlodipine Besylate (Norvasc) 10 mg PO DAILY [facility] Last Admin: 10/02/16 10:41 Dose: 10 mg Aspirin (Ecotrin) 81 mg PO DAILY [facility] Last Admin: 10/02/16 10:41 Dose: 81 mg Atorvastatin Calcium (Lipitor) 80 mg PO DIN [facility] Carbidopa/Levodopa (Sinemet 10/100) 1 tab PO TID [facility] Last Admin: 10/02/16 15:38 Dose: 1 tab Carvedilol (Coreg) 6.25 mg PO Q12 [facility] Last Admin: 10/02/16 10:58 Dose: 6.25 mg Clonidine HCl (Catapres) 0.3 mg PO BID [facility] Last Admin: 10/02/16 10:39 Dose: 0.3 mg Escitalopram Oxalate (Lexapro) 10 mg PO DAILY [facility] Last Admin: 10/02/16 10:59 Dose: 10 mg Gabapentin (Neurontin) 100 mg PO BID [facility] PRN Reason: Protocol Last Admin: 10/02/16 10:38 Dose: 100 mg Hydralazine HCl (Apresoline) 100 mg PO Q8H PRN PRN Reason: Systolic Blood Pressure Hydromorphone HCl (Dilaudid) 1.5 mg IVP Q4H PRN PRN Reason: Pain, severe (8-10) Last Admin: 10/02/16 09:33 Dose: 1.5 mg Insulin Detemir (Levemir) 4 unit SC BID [facility] Last Admin: 10/02/16 10:50 Dose: 4 unit Insulin Human Lispro (Humalog Med) 0 units SC ACHS [facility] PRN Reason: Protocol Last Admin: 10/02/16 13:33 Dose: Not Given Lisinopril (Zestril) 80 mg PO DAILY [facility] Last Admin: 10/02/16 10:41 Dose: 80 mg Oxycodone/Acetaminophen (Percocet 5/325 Mg Tab) 1 tab PO Q4H PRN PRN Reason: Pain, moderate (4-7) Stop: 10/05/16 13:46 Pantoprazole Sodium (Protonix Inj) 40 mg IVP DAILY [facility] Last Admin: 10/02/16 10:42 Dose: 40 mg Primidone (Mysoline) 50 mg PO DAILY [facility] Last Admin: 10/02/16 10:41 Dose: 50 mg Sertraline HCl (Zoloft) 25 mg PO HS [facility] Sevelamer HCl (Renagel) 800 mg PO TID [facility] Last Admin: 10/02/16 15:38 Dose: 800 mg Zinc Sulfate (Zinc Sulfate 220 Mg Cap) 220 mg PO DAILY [facility] Last Admin: 10/02/16 10:42 Dose: 220 mg - Labs Labs: 10/02/16 07:10 10/02/16 07:10 PT 31.6 Seconds (9.9-11.8) H* 10/02/16 07:10 INR 2.93 (0.93-1.08) H 10/02/16 07:10 APTT 40.6 Seconds (23.7-30.8) H 10/01/16 17:40 - Constitutional Appears: Non-toxic, Unkempt - Head Exam Head Exam: NORMOCEPHALIC Additional comments: Abrasion over right brow - Eye Exam Eye Exam: EOMI, Normal appearance, PERRL - ENT Exam ENT Exam: Mucous Membranes Moist, TM's Normal Bilaterally - Neck Exam Neck Exam: Full ROM. absent: Lymphadenopathy, Thyromegaly - Respiratory Exam Respiratory Exam: Clear to Ausculation Bilateral. absent: Rales, Rhonchi, Wheezes - Cardiovascular Exam Cardiovascular Exam: RRR, +S1, +S2 - GI/Abdominal Exam GI & Abdominal Exam: Soft, Normal Bowel Sounds. absent: Tenderness - Extremities Exam Extremities Exam: Full ROM Additional comments: R wrist splinted Right BKA, splinted and wrapped - Back Exam Back Exam: absent: CVA tenderness (L), CVA tenderness (R) - Neurological Exam Neurological Exam: Alert, Awake, CN II-XII Intact, Oriented x3 - Psychiatric Exam Psychiatric exam: Normal Affect, Normal Mood - Skin Skin Exam: Dry, Normal Color Assessment and Plan - Assessment and Plan (Free Text) Assessment: 66 yo F with a PMH of ESRD on Dialysis T/R/Sa, CAD/CABG, IDDIM, Antiphospholipid syndrome, Depression, Seizure Disorder, GERD, CHF Systolic and Diastolic Dysfunction, Parkinsons Disease, past DVTs, s/p R BKA, s/p CABG who initially presented complaining of a fall. After the fall, daughter says that patient was confused, said strange things, but quickly regained orientation. XR overnight showed right femur fracture and right radius fracture. Plan: 1.) Trauma s/p Fall, 2/2 possible syncopal event VS loss of balance - Head CT impression No intracranial hemorrhage or mass effect. Left basal ganglion lacunar infarct - slightly more conspicuous on the current exam. Atherosclerotic vascular calcifications - right vertebral artery most notable. Minimal cerebral atrophy changes - no significant change here is appreciated. Knee XR significant for comminuted distal femur fracture with mild displacement. Wrist XR negative, no fracture appreciated. Lumbar spine XR negative. - ECHO pending, Carotid U/S pending - TSH slightly elevated, start levothyroxine 50mcg and recheck TSH in AM - Ortho consulted (Mastromonanam), appreciate all recs - Cardio consulted (Elieser), appreciate all recs - Hydromorphone 2. LLE Ankle Cellulitis - Wound Culture pending 3. ESRD on Dialysis - Consult nephro, appreciate all recs; prior to admission, T/R/Sa Dialysis 4. H/O CAD, CHF, HTN - Continue amiodarone, amlodipine, ASA 81, Atorvastatin, Carvedilol, Clonidine, Hydralazine, lisinopril 5. IDDM - Continue Insulin detemir - Increase lispro sliding scale to high dose protocol 6. Seizure Disorder - Continue Gabapentin, Primidone 7. Parkinsons - Continue Carbidopa/Levodopa 8. GERD - Continue Pantoprazole 9. Depression, Anxiety - Continue Escitalopram, Alprazolam, Sertraline 10. Antiphospholipid syndrome - Continue Sevelamer, Zn 12. H/O DVTs - ASA 81, no heparin at this time Patient was seen, examined, and discussed in detail with senior resident Dr. Contreras PGY2 and attending Dr. Morton <Alexey Morton - Last Filed: 10/21/16 13:12> Objective - Vital Signs/Intake and Output Vital Signs (last 24 hours): Temp Pulse Resp BP Pulse Ox 99.1 F 73 16 122/65 95 10/10/16 16:30 10/10/16 16:30 10/10/16 16:30 10/10/16 16:30 10/10/16 16:30 - Labs Labs: 10/10/16 08:00 10/10/16 08:00 PT 35.5 Seconds (9.9-11.8) H* 10/10/16 08:00 INR 3.29 (0.93-1.08) H 10/10/16 08:00 APTT 45.3 Seconds (23.7-30.8) H 10/10/16 08:00 Attending/Attestation - Attestation I have personally seen and examined this patient.: Yes I have fully participated in the care of the patient.: Yes I have reviewed all pertinent clinical information, including history, physical exam and plan: Yes Notes (Text): 10/21/16 13:12 Medical record note made by the resident after discussion with my direction and input after the patient was personally seen and examined by me. I have reviewed the chart and agree that the record accurately reflects by personal performance of the history, physical exam, data review, and medical decision-making, in the course for the patient. I have also personally directed the plan of care.
--- NOTE | 2016-10-02 16:31 | US ---
PROCEDURE: Bilateral carotid artery duplex US HISTORY: Carotid stenosis Syncope PHYSICIAN(S): Carl Morris MD. TECHNIQUE: Duplex sonography and color-flow Doppler were used to evaluate the carotid bifurcations and limited segments of the vertebral arteries bilaterally. FINDINGS: There is moderate to extensive shadowing plaque noted at the carotid bifurcations bilaterally. The peak systolic velocity in the proximal right internal carotid artery is 123 cm/sec. This corresponds to a 40-59% proximal right ICA stenosis. Mildly elevated systolic velocities are noted in the proximal right external carotid artery. There is antegrade flow in the right vertebral artery. The peak systolic velocity in the proximal left internal carotid artery is 164 cm/sec. This corresponds to a 60-79% proximal left ICA stenosis. Moderately elevated systolic velocities are noted in the proximal left external carotid artery. There is antegrade flow in the left vertebral artery. IMPRESSION: 1. 60-79% proximal left ICA stenosis. 2. 40-59% proximal right ICA stenosis. 2. Antegrade flow in both vertebral arteries.
[2016-10-02] MEDS: Insulin Lispro (HUMAlog) HIGH Coverage SC SCH ×2 (18:40→22:07)
[2016-10-03] MEDS ORDERED: Levothyroxine 25 MCG TAB PO SCH (06:00)
[2016-10-03] MEDS: HYDROmorphone 2 mg/ml ISec IVP PRN ×3 (06:07→23:27)
[2016-10-03 07:29] LABS: BASO # 0.05 K/mm3 (0.0-2.0); BASO % 0.5 % (0.0-3.0); EOS # 0.1 (0.0-0.7); EOS % 1.3 % (1.5-5.0); GRAN # 9.23 (1.4-6.5); GRAN % 84.6 % (50.0-68.0); HEMOGLOBIN 10.2 gm/dL (12.0-16.0); INR 2.94 (0.93-1.08); LYMPH # 0.6 (1.2-3.4); LYMPH % 5.9 % (22.0-35.0); MEAN CELL VOLUME 87.9 fL (80.0-105.0); MEAN CORPUSCULAR HEMOGLOBIN 27.5 pg (25.0-35.0); MEAN CORPUSCULAR HGB CONC 31.3 g/dl (31.0-37.0); MEAN PLATELET VOLUME 11.8 fl (7.0-11.0); MONO # 0.8 (0.1-0.6); MONO % 7.7 % (1.0-6.0); PLATELET COUNT 148 10^3/uL (120.0-450.0); PROTHROMBIN TIME 31.8 Seconds (9.9-11.8); RBC 3.71 10^6/uL (3.5-6.1); RED CELL DISTRIBUTION WIDTH 18.1 % (11.5-14.5); WHITE BLOOD COUNT 10.9 10^3/ul (4.5-11.0)
[2016-10-03 07:40] LABS: ALB/GLOB RATIO 1.2 (1.1-1.8); ALBUMIN 3.5 g/dL (3.0-4.8); CALCIUM 9.6 mg/dL (8.4-10.5)
[2016-10-03] MEDS: Albuterol-Ipratrop 3 mg / 0.5 (3 ml) UD IH PRN (07:50)
[2016-10-03] MEDS: Insulin Lispro (HUMAlog) HIGH Coverage SC SCH ×4 (08:56→23:34)
--- NOTE | 2016-10-03 09:19 | CP.PCM.CON ---
<Sharmila Em - Last Filed: 10/03/16 09:09> History of Present Illness - History of Present Illness History of Present Illness: 66 year old female with PMHx including ESRD (on HD),CAD with stents, and CABG, right BKA, IDDM, antiphospholipid syndrome, DVT, Parkinson disease, depression, seizure disorders, GERD, CHF, and HTN was seen at bedside, with attending, Dr. Issa regarding left heel ulceration. Patient denies any pain in her left foot. She states that she is here due to a fall she sustained yesterday. She denies any n/v/f/c/sob/cp. Past Patient History - Infectious Disease Hx of Infectious Diseases: None - Tetanus Immunizations Tetanus Immunization: Unknown - Past Medical History & Family History Past Medical History?: Yes - Past Social History Smoking Status: Former Smoker - CARDIAC Hx Cardiac Disorders: Yes (CAD ,DVT) Hx Hypertension: Yes - PULMONARY Hx Respiratory Disorders: Yes - NEUROLOGICAL Hx Neurological Disorder: Yes Hx Dizziness: Yes (syncope) - HEENT Hx HEENT Problems: Yes Other/Comment: wear glasses,L ear UNGA - RENAL Hx Chronic Kidney Disease: Yes Hx Dialysis: Yes ([facility] T,,SAT) Date of Last Dialysis Treatment: 10/01/16 Hx Renal Failure: Yes - ENDOCRINE/METABOLIC Hx Endocrine Disorders: Yes Hx Diabetes Mellitus Type 2: Yes - HEMATOLOGICAL/ONCOLOGICAL Hx Blood Disorders: Yes - INTEGUMENTARY Hx Dermatological Problems: Yes Other/Comment: L great toe amputated,RT BKA - MUSCULOSKELETAL/RHEUMATOLOGICAL Hx Musculoskeletal Disorders: Yes Hx Falls: No Other/Comment: RT BKA - GASTROINTESTINAL Hx Gastrointestinal Disorders: Yes Hx Diverticulitis: Yes Hx Gastroesophageal Reflux: Yes Other/Comment: hx of c-diff - GENITOURINARY/GYNECOLOGICAL Hx Genitourinary Disorders: No - PSYCHIATRIC Hx Psychophysiologic Disorder: Yes Hx Anxiety: Yes Hx Depression: Yes Hx Substance Use: No - SURGICAL HISTORY Hx Amputation: Yes (L Great toe.RT BKA) Hx Coronary Artery Bypass Graft: Yes Hx Open Heart Surgery: Yes - ANESTHESIA Hx Anesthesia: Yes Hx Anesthesia Reactions: No Hx Malignant Hyperthermia: No Meds Allergies/Adverse Reactions: Allergies Allergy/AdvReac Type Severity Reaction Status Date / Time ciprofloxacin Allergy SWELLING Verified 10/01/16 17:12 clarithromycin [From Biaxin] Allergy SWELLING Verified 10/01/16 17:12 pepper Allergy SWELLING Verified 10/01/16 17:12 - Medications Medications: Current Medications Albuterol/Ipratropium (Duoneb 3 Mg/0.5 Mg (3 Ml) Ud) 3 ml IH Q4H PRN PRN Reason: Shortness of Breath Last Admin: 10/03/16 07:50 Dose: 3 ml Alprazolam (Xanax) 0.5 mg PO TID PRN PRN Reason: Anxiety Amiodarone HCl (Cordarone) 200 mg PO DAILY [facility] Last Admin: 10/02/16 10:41 Dose: 200 mg Amlodipine Besylate (Norvasc) 10 mg PO DAILY [facility] Last Admin: 10/02/16 10:41 Dose: 10 mg Aspirin (Ecotrin) 81 mg PO DAILY [facility] Last Admin: 10/02/16 10:41 Dose: 81 mg Atorvastatin Calcium (Lipitor) 80 mg PO DIN [facility] Last Admin: 10/02/16 18:40 Dose: 80 mg Carbidopa/Levodopa (Sinemet 10/100) 1 tab PO TID [facility] Last Admin: 10/02/16 18:40 Dose: 1 tab Carvedilol (Coreg) 6.25 mg PO Q12 [facility] Last Admin: 10/02/16 21:44 Dose: 6.25 mg Clonidine HCl (Catapres) 0.3 mg PO BID [facility] Last Admin: 10/02/16 18:39 Dose: 0.3 mg Escitalopram Oxalate (Lexapro) 10 mg PO DAILY [facility] Last Admin: 10/02/16 10:59 Dose: 10 mg Gabapentin (Neurontin) 100 mg PO BID [facility] PRN Reason: Protocol Last Admin: 10/02/16 18:40 Dose: 100 mg Hydralazine HCl (Apresoline) 100 mg PO Q8H PRN PRN Reason: Systolic Blood Pressure Hydromorphone HCl (Dilaudid) 1.5 mg IVP Q4H PRN PRN Reason: Pain, severe (8-10) Last Admin: 10/03/16 06:07 Dose: 1.5 mg Insulin Detemir (Levemir) 4 unit SC BID [facility] Last Admin: 10/02/16 18:41 Dose: 4 unit Insulin Human Lispro (Humalog High) 0 units SC [facility] PRN Reason: Protocol Last Admin: 10/03/16 08:56 Dose: 2 units Lisinopril (Zestril) 80 mg PO DAILY [facility] Last Admin: 10/02/16 10:41 Dose: 80 mg Oxycodone/Acetaminophen (Percocet 5/325 Mg Tab) 1 tab PO Q4H PRN PRN Reason: Pain, moderate (4-7) Stop: 10/05/16 13:46 Last Admin: 10/02/16 21:43 Dose: 1 tab Pantoprazole Sodium (Protonix Inj) 40 mg IVP DAILY [facility] Last Admin: 10/02/16 10:42 Dose: 40 mg Primidone (Mysoline) 50 mg PO DAILY [facility] Last Admin: 10/02/16 10:41 Dose: 50 mg Sertraline HCl (Zoloft) 25 mg PO HS [facility] Last Admin: 10/02/16 21:43 Dose: 25 mg Sevelamer HCl (Renagel) 800 mg PO TID [facility] Last Admin: 10/02/16 18:40 Dose: 800 mg Zinc Sulfate (Zinc Sulfate 220 Mg Cap) 220 mg PO DAILY [facility] Last Admin: 10/02/16 10:42 Dose: 220 mg Physical Exam - Constitutional Appears: No Acute Distress, Chronically Ill - Extremities Exam Additional comments: Lower extremity focused exam: Right: Below knee amputation noted Left: Vasc: Non-palpable DP and PT pulses, CFT < 4 sec to all digits, TG wnl, no edema noted Neuro: Gross sensation diminished Derm: Superficial ulceration noted to heel measuring approximately 0.7 cm by 0.7 cm. No drainage, no purulence, no malodor, no ascending cellulitis, no fluctuance, no probe to bone noted Ortho: Mild pain on palpation to heel - Neurological Exam Neurological exam: Alert, Oriented x3 - Psychiatric Exam Psychiatric exam: Normal Affect, Normal Mood Results - Vital Signs Recent Vital Signs: Last Vital Signs Temp 99.0 F 10/03/16 06:00 Pulse 65 10/03/16 06:00 Resp 17 10/03/16 06:00 BP 180/88 H 10/03/16 06:00 Pulse Ox 94 L 10/03/16 06:00 - Labs Result Diagrams: 10/03/16 06:20 10/03/16 06:20 Labs: Laboratory Results - last 24 hr 10/02/16 10/02/16 10/03/16 16:43 21:24 06:20 WBC 10.9 D RBC 3.71 Hgb 10.2 L Hct 32.6 L MCV 87.9 MCH 27.5 MCHC 31.3 RDW 18.1 H Plt Count 148 MPV 11.8 H Gran % 84.6 H Lymph % (Auto) 5.9 L [place] % (Auto) 7.7 H Eos % (Auto) 1.3 L Baso % (Auto) 0.5 Gran # 9.23 H Lymph # 0.6 L [place] # 0.8 H Eos # 0.1 Baso # 0.05 PT INR Sodium Potassium Chloride Carbon Dioxide Anion Gap BUN Creatinine Est GFR ( Amer) Est GFR (Non-Af Amer) POC Glucose (mg/dL) 183 H 117 H Random Glucose Calcium Total Bilirubin AST ALT Alkaline Phosphatase Total Protein Albumin Globulin Albumin/Globulin Ratio 10/03/16 10/03/16 10/03/16 06:20 06:20 07:39 WBC RBC Hgb Hct MCV MCH MCHC RDW Plt Count MPV Gran % Lymph % (Auto) [place] % (Auto) Eos % (Auto) Baso % (Auto) Gran # Lymph # [place] # Eos # Baso # PT 31.8 H* INR 2.94 H Sodium 136 Potassium 5.5 H Chloride 98 Carbon Dioxide 21 Anion Gap 23 H BUN 52 H Creatinine 6.3 H Est GFR ( Amer) 8 Est GFR (Non-Af Amer) 7 POC Glucose (mg/dL) 181 H Random Glucose 171 H Calcium 9.6 Total Bilirubin 0.6 AST 16 ALT 15 Alkaline Phosphatase 188 H Total Protein 6.4 Albumin 3.5 Globulin 2.9 Albumin/Globulin Ratio 1.2 Assessment & Plan - Assessment and Plan (Free Text) Assessment: 66 year old female with diabetic left heel ulceration Plan: Patient examined and evaluated with attending Dr. Issa Chart, labs and vitals reviewed: afebrile, WBC 10.9 Left heel cleansed with normal sterile saline Left heel dressed with betadine and optifoam Patient to continue offloading the left heel while in bed Multipodus boot ordered Podiatry will continue to monitor while patient remains in house <Elmira Issa - Last Filed: 10/05/16 14:49> Meds - Medications Medications: Current Medications Acetaminophen (Tylenol 650mg/20.3ml Solution Ud) 650 mg PO Q6H PRN PRN Reason: Temperature Last Admin: 10/05/16 06:40 Dose: 650 mg Albuterol/Ipratropium (Duoneb 3 Mg/0.5 Mg (3 Ml) Ud) 3 ml IH Q4H PRN PRN Reason: Shortness of Breath Last Admin: 10/03/16 07:50 Dose: 3 ml Alprazolam (Xanax) 0.5 mg PO TID PRN PRN Reason: Anxiety Amiodarone HCl (Cordarone) 200 mg PO DAILY [facility] Last Admin: 10/04/16 14:19 Dose: 200 mg Amlodipine Besylate (Norvasc) 10 mg PO DAILY [facility] Last Admin: 10/04/16 14:17 Dose: 10 mg Aspirin (Ecotrin) 81 mg PO DAILY [facility] Last Admin: 10/04/16 14:20 Dose: 81 mg Atorvastatin Calcium (Lipitor) 80 mg PO DIN [facility] Last Admin: 10/04/16 17:19 Dose: 80 mg Carbidopa/Levodopa (Sinemet 10/100) 1 tab PO TID [facility] Last Admin: 10/05/16 14:21 Dose: Not Given Carvedilol (Coreg) 6.25 mg PO Q12 [facility] Last Admin: 10/04/16 21:48 Dose: 6.25 mg Clonidine HCl (Catapres) 0.3 mg PO Q8 [facility] Last Admin: 10/05/16 06:01 Dose: 0.3 mg Escitalopram Oxalate (Lexapro) 10 mg PO DAILY [facility] Last Admin: 10/04/16 10:40 Dose: Not Given Gabapentin (Neurontin) 100 mg PO BID [facility] PRN Reason: Protocol Last Admin: 10/04/16 17:18 Dose: 100 mg Heparin Sodium (Porcine) (Heparin) 5,000 units SC Q8 [facility] PRN Reason: Protocol Last Admin: 10/05/16 08:22 Dose: 5,000 units Hydralazine HCl (Apresoline) 100 mg PO Q8H PRN PRN Reason: Systolic Blood Pressure Last Admin: 10/05/16 02:02 Dose: 100 mg Hydromorphone HCl (Dilaudid) 1.5 mg IVP Q4H PRN PRN Reason: Pain, severe (8-10) Last Admin: 10/05/16 10:09 Dose: 1.5 mg Heparin Sodium/Dextrose (Heparin 25,000 Units/250ml In D5w) 25,000 units in 250 mls @ 8.399 mls/hr IV .Q24H PRN; Protocol; 12 UNITS/KG/HR PRN Reason: ADJUST RATE PER PROTOCOL Cefepime HCl (Maxipime 1gm) 1 gm in 100 mls @ 200 mls/hr IVPB DAILY [facility] Insulin Detemir (Levemir) 6 unit SC BID [facility] Last Admin: 10/04/16 17:31 Dose: 6 unit Insulin Human Lispro (Humalog High) 0 units SC ACHS [facility] PRN Reason: Protocol Last Admin: 10/05/16 07:57 Dose: Not Given Lisinopril (Zestril) 80 mg PO DAILY [facility] Last Admin: 10/04/16 14:18 Dose: 80 mg Morphine Sulfate (Morphine) 2 mg IVP Q15M PRN PRN Reason: Pain, moderate (4-7) Ondansetron HCl (Zofran Inj) 4 mg IVP ONCE PRN PRN Reason: Nausea/Vomiting Pantoprazole Sodium (Protonix Inj) 40 mg IVP DAILY [facility] Last Admin: 10/04/16 14:14 Dose: 40 mg Primidone (Mysoline) 50 mg PO DAILY [facility] Last Admin: 10/04/16 14:21 Dose: 50 mg Sertraline HCl (Zoloft) 25 mg PO HS [facility] Last Admin: 10/04/16 21:48 Dose: 25 mg Sevelamer HCl (Renagel) 800 mg PO TID [facility] Last Admin: 10/05/16 14:21 Dose: Not Given Zinc Sulfate (Zinc Sulfate 220 Mg Cap) 220 mg PO DAILY [facility] Last Admin: 10/04/16 14:16 Dose: 220 mg Results - Vital Signs Recent Vital Signs: Last Vital Signs Temp 100.9 F H 10/05/16 06:40 Pulse 73 10/05/16 06:01 Resp 18 10/05/16 06:00 BP 173/64 H 10/05/16 06:01 Pulse Ox 95 10/05/16 08:47 - Labs Result Diagrams: 10/05/16 07:20 10/05/16 07:22 Labs: Laboratory Results - last 24 hr 10/04/16 10/04/16 10/04/16 14:06 16:17 21:20 WBC RBC Hgb Hct MCV MCH MCHC RDW Plt Count MPV Gran % Lymph % (Auto) [place] % (Auto) Eos % (Auto) Baso % (Auto) Gran # Lymph # [place] # Eos # Baso # PT INR APTT Sodium Potassium Chloride Carbon Dioxide Anion Gap BUN Creatinine Est GFR ( Amer) Est GFR (Non-Af Amer) POC Glucose (mg/dL) 371 H 260 H 78 Random Glucose Calcium Total Bilirubin AST ALT Alkaline Phosphatase Total Protein Albumin Globulin Albumin/Globulin Ratio 10/04/16 10/05/16 10/05/16 22:40 07:10 07:20 WBC 10.4 RBC 3.43 L Hgb 9.3 L Hct 29.9 L MCV 87.2 MCH 27.1 MCHC 31.1 RDW 17.4 H Plt Count 161 MPV 10.5 Gran % 82.6 H Lymph % (Auto) 6.6 L [place] % (Auto) 9.8 H Eos % (Auto) 0.7 L Baso % (Auto) 0.3 Gran # 8.61 H Lymph # 0.7 L [place] # 1.0 H Eos # 0.1 Baso # 0.03 PT INR APTT Sodium Potassium Chloride Carbon Dioxide Anion Gap BUN Creatinine Est GFR ( Amer) Est GFR (Non-Af Amer) POC Glucose (mg/dL) 79 126 H Random Glucose Calcium Total Bilirubin AST ALT Alkaline Phosphatase Total Protein Albumin Globulin Albumin/Globulin Ratio 10/05/16 10/05/16 07:20 07:22 WBC RBC Hgb Hct MCV MCH MCHC RDW Plt Count MPV Gran % Lymph % (Auto) [place] % (Auto) Eos % (Auto) Baso % (Auto) Gran # Lymph # [place] # Eos # Baso # PT 11.5 INR 1.06 APTT 31.7 H Sodium 136 Potassium 5.1 H Chloride 98 Carbon Dioxide 22 Anion Gap 21 H BUN 60 H Creatinine 6.5 H Est GFR ( Amer) 8 Est GFR (Non-Af Amer) 6 POC Glucose (mg/dL) Random Glucose 117 H Calcium 9.3 Total Bilirubin 0.6 AST 19 ALT 23 Alkaline Phosphatase 148 H Total Protein 6.8 Albumin 3.5 Globulin 3.3 Albumin/Globulin Ratio 1.1 Attending/Attestation - Attestation I have personally seen and examined this patient.: Yes I have fully participated in the care of the patient.: Yes I have reviewed all pertinent clinical information: Yes
--- NOTE | 2016-10-03 09:19 | CP.PCM.PN ---
Subjective - Date & Time of Evaluation Date of Evaluation: 10/03/16 Time of Evaluation: 09:00 - Subjective Subjective: cardiology fu pt without chest pain, no SOB VSS neck neg JVD lungs without rales cor S1S2 ext sp ambulation r bka labs noted ECHO pending Impression: Stable angina CAD S/P CABG Severe PVD ESRD DM Plan Patient at increase surgical risk for repair of her fracture due to her multiple organ disease. However, her cardiac status is at its optimum now. will correct her coagulopathy in prep for surgery tomorrow MD Radha Objective - Vital Signs/Intake and Output Vital Signs (last 24 hours): Temp Pulse Resp BP Pulse Ox 99.0 F 65 17 180/88 H 94 L 10/03/16 06:00 10/03/16 06:00 10/03/16 06:00 10/03/16 06:00 10/03/16 06:00 Intake and Output: 10/03/16 10/03/16 06:59 18:59 Intake Total 300 Output Total 0 Balance 300 - Medications Medications: Current Medications Albuterol/Ipratropium (Duoneb 3 Mg/0.5 Mg (3 Ml) Ud) 3 ml IH Q4H PRN PRN Reason: Shortness of Breath Last Admin: 10/03/16 07:50 Dose: 3 ml Alprazolam (Xanax) 0.5 mg PO TID PRN PRN Reason: Anxiety Amiodarone HCl (Cordarone) 200 mg PO DAILY [facility] Last Admin: 10/02/16 10:41 Dose: 200 mg Amlodipine Besylate (Norvasc) 10 mg PO DAILY [facility] Last Admin: 10/02/16 10:41 Dose: 10 mg Aspirin (Ecotrin) 81 mg PO DAILY [facility] Last Admin: 10/02/16 10:41 Dose: 81 mg Atorvastatin Calcium (Lipitor) 80 mg PO DIN [facility] Last Admin: 10/02/16 18:40 Dose: 80 mg Carbidopa/Levodopa (Sinemet 10/100) 1 tab PO TID [facility] Last Admin: 10/02/16 18:40 Dose: 1 tab Carvedilol (Coreg) 6.25 mg PO Q12 [facility] Last Admin: 10/02/16 21:44 Dose: 6.25 mg Clonidine HCl (Catapres) 0.3 mg PO BID [facility] Last Admin: 10/02/16 18:39 Dose: 0.3 mg Escitalopram Oxalate (Lexapro) 10 mg PO DAILY [facility] Last Admin: 10/02/16 10:59 Dose: 10 mg Gabapentin (Neurontin) 100 mg PO BID [facility] PRN Reason: Protocol Last Admin: 10/02/16 18:40 Dose: 100 mg Hydralazine HCl (Apresoline) 100 mg PO Q8H PRN PRN Reason: Systolic Blood Pressure Hydromorphone HCl (Dilaudid) 1.5 mg IVP Q4H PRN PRN Reason: Pain, severe (8-10) Last Admin: 10/03/16 06:07 Dose: 1.5 mg Insulin Detemir (Levemir) 4 unit SC BID [facility] Last Admin: 10/02/16 18:41 Dose: 4 unit Insulin Human Lispro (Humalog High) 0 units SC ACHS [facility] PRN Reason: Protocol Last Admin: 10/03/16 08:56 Dose: 2 units Lisinopril (Zestril) 80 mg PO DAILY [facility] Last Admin: 10/02/16 10:41 Dose: 80 mg Oxycodone/Acetaminophen (Percocet 5/325 Mg Tab) 1 tab PO Q4H PRN PRN Reason: Pain, moderate (4-7) Stop: 10/05/16 13:46 Last Admin: 10/02/16 21:43 Dose: 1 tab Pantoprazole Sodium (Protonix Inj) 40 mg IVP DAILY [facility] Last Admin: 10/02/16 10:42 Dose: 40 mg Primidone (Mysoline) 50 mg PO DAILY [facility] Last Admin: 10/02/16 10:41 Dose: 50 mg Sertraline HCl (Zoloft) 25 mg PO HS [facility] Last Admin: 10/02/16 21:43 Dose: 25 mg Sevelamer HCl (Renagel) 800 mg PO TID [facility] Last Admin: 10/02/16 18:40 Dose: 800 mg Zinc Sulfate (Zinc Sulfate 220 Mg Cap) 220 mg PO DAILY [facility] Last Admin: 10/02/16 10:42 Dose: 220 mg - Labs Labs: 10/03/16 06:20 10/03/16 06:20 PT 31.8 Seconds (9.9-11.8) H* 10/03/16 06:20 INR 2.94 (0.93-1.08) H 10/03/16 06:20 APTT 40.6 Seconds (23.7-30.8) H 10/01/16 17:40
[2016-10-03] MEDS ORDERED: Phytonadione 10 mg/ml Inj (Adult) SC STA (09:21)
--- NOTE | 2016-10-03 11:07 | CP.PCM.CON ---
<Nelia Jacobs - Last Filed: 10/03/16 19:24> History of Present Illness - History of Present Illness History of Present Illness: PGY-[address] Dozier Consult: Antiphospholipid syndrome requiring life-long coagulation Ms. Dickson is a 66 y/o female with PMHx of Seizure Disorder, RLE amputation below the knee (4 years ago), APS on coumadin, ESRD on dialysis TTSa , and IDDM, She fell from her wheelchair and sustained a fall. Pt states that she lost her balance during transfer. Denies LOC. Pt landed on her R side, injured to R face, R wrist, and R knee. Pt was confused for a brief moment but regained orientation. Knee XR in ED was significant for comminuted distal femur fracture with mild displacement. Pt INR was 4. Coumadin on hold. Last dose ROS - (+) tightness in breathing; denies cough - (+) LLE ankle lesion - denied fevers, chills, nausea, vomiting, chest pain, SOB - denies loss of appetite, abdominal pain, constipation, melena, n/v/d PMHx: Seizure Disorder CAD/CABG, CHF Systolic and Diastolic Dysfunction ESRD on Dialysis T/R/Sa, IDDIM, GERD Antiphospholipid syndrome, Hx DVTs PAD Parkinsons Disease, Depression PSHx: CABG R BKA FamHx: Non-contributory SocHx: Denies etoh; Former smoker; Denies illicits Allergies: Cipro, Clarithro, Pepper Meds: review PMD: Dr. Morton Past Patient History - Infectious Disease Hx of Infectious Diseases: None - Tetanus Immunizations Tetanus Immunization: Unknown - Past Medical History & Family History Past Medical History?: Yes - Past Social History Smoking Status: Former Smoker - CARDIAC Hx Cardiac Disorders: Yes (CAD ,DVT) Hx Hypertension: Yes - PULMONARY Hx Respiratory Disorders: Yes - NEUROLOGICAL Hx Neurological Disorder: Yes Hx Dizziness: Yes (syncope) - HEENT Hx HEENT Problems: Yes Other/Comment: wear glasses,L ear ELIM IRA - RENAL Hx Chronic Kidney Disease: Yes Hx Dialysis: Yes ([facility] T,TH,SAT) Date of Last Dialysis Treatment: 10/01/16 Hx Renal Failure: Yes - ENDOCRINE/METABOLIC Hx Endocrine Disorders: Yes Hx Diabetes Mellitus Type 2: Yes - HEMATOLOGICAL/ONCOLOGICAL Hx Blood Disorders: Yes - INTEGUMENTARY Hx Dermatological Problems: Yes Other/Comment: L great toe amputated,RT BKA - MUSCULOSKELETAL/RHEUMATOLOGICAL Hx Musculoskeletal Disorders: Yes Hx Falls: No Other/Comment: RT BKA - GASTROINTESTINAL Hx Gastrointestinal Disorders: Yes Hx Diverticulitis: Yes Hx Gastroesophageal Reflux: Yes Other/Comment: hx of c-diff - GENITOURINARY/GYNECOLOGICAL Hx Genitourinary Disorders: No - PSYCHIATRIC Hx Psychophysiologic Disorder: Yes Hx Anxiety: Yes Hx Depression: Yes Hx Substance Use: No - SURGICAL HISTORY Hx Amputation: Yes (L Great toe.RT BKA) Hx Coronary Artery Bypass Graft: Yes Hx Open Heart Surgery: Yes - ANESTHESIA Hx Anesthesia: Yes Hx Anesthesia Reactions: No Hx Malignant Hyperthermia: No Meds Allergies/Adverse Reactions: Allergies Allergy/AdvReac Type Severity Reaction Status Date / Time ciprofloxacin Allergy SWELLING Verified 10/01/16 17:12 clarithromycin [From Biaxin] Allergy SWELLING Verified 10/01/16 17:12 pepper Allergy SWELLING Verified 10/01/16 17:12 - Medications Medications: Current Medications Albuterol/Ipratropium (Duoneb 3 Mg/0.5 Mg (3 Ml) Ud) 3 ml IH Q4H PRN PRN Reason: Shortness of Breath Last Admin: 10/03/16 07:50 Dose: 3 ml Alprazolam (Xanax) 0.5 mg PO TID PRN PRN Reason: Anxiety Amiodarone HCl (Cordarone) 200 mg PO DAILY [facility] Last Admin: 10/02/16 10:41 Dose: 200 mg Amlodipine Besylate (Norvasc) 10 mg PO DAILY [facility] Last Admin: 10/02/16 10:41 Dose: 10 mg Aspirin (Ecotrin) 81 mg PO DAILY [facility] Last Admin: 10/02/16 10:41 Dose: 81 mg Atorvastatin Calcium (Lipitor) 80 mg PO DIN [facility] Last Admin: 10/02/16 18:40 Dose: 80 mg Carbidopa/Levodopa (Sinemet 10/100) 1 tab PO TID [facility] Last Admin: 10/02/16 18:40 Dose: 1 tab Carvedilol (Coreg) 6.25 mg PO Q12 [facility] Last Admin: 10/02/16 21:44 Dose: 6.25 mg Clonidine HCl (Catapres) 0.3 mg PO BID [facility] Last Admin: 10/02/16 18:39 Dose: 0.3 mg Escitalopram Oxalate (Lexapro) 10 mg PO DAILY [facility] Last Admin: 10/02/16 10:59 Dose: 10 mg Gabapentin (Neurontin) 100 mg PO BID [facility] PRN Reason: Protocol Last Admin: 10/02/16 18:40 Dose: 100 mg Hydralazine HCl (Apresoline) 100 mg PO Q8H PRN PRN Reason: Systolic Blood Pressure Hydromorphone HCl (Dilaudid) 1.5 mg IVP Q4H PRN PRN Reason: Pain, severe (8-10) Last Admin: 10/03/16 06:07 Dose: 1.5 mg Insulin Detemir (Levemir) 4 unit SC BID [facility] Last Admin: 10/02/16 18:41 Dose: 4 unit Insulin Human Lispro (Humalog High) 0 units SC ACHS [facility] PRN Reason: Protocol Last Admin: 10/03/16 08:56 Dose: 2 units Lisinopril (Zestril) 80 mg PO DAILY [facility] Last Admin: 10/02/16 10:41 Dose: 80 mg Oxycodone/Acetaminophen (Percocet 5/325 Mg Tab) 1 tab PO Q4H PRN PRN Reason: Pain, moderate (4-7) Stop: 10/05/16 13:46 Last Admin: 10/02/16 21:43 Dose: 1 tab Pantoprazole Sodium (Protonix Inj) 40 mg IVP DAILY [facility] Last Admin: 10/02/16 10:42 Dose: 40 mg Primidone (Mysoline) 50 mg PO DAILY [facility] Last Admin: 10/02/16 10:41 Dose: 50 mg Sertraline HCl (Zoloft) 25 mg PO HS [facility] Last Admin: 10/02/16 21:43 Dose: 25 mg Sevelamer HCl (Renagel) 800 mg PO TID [facility] Last Admin: 10/02/16 18:40 Dose: 800 mg Zinc Sulfate (Zinc Sulfate 220 Mg Cap) 220 mg PO DAILY [facility] Last Admin: 10/02/16 10:42 Dose: 220 mg Physical Exam - Head Exam Head Exam: NORMOCEPHALIC - Eye Exam Eye Exam: EOMI, Normal appearance, PERRL. absent: Scleral icterus - ENT Exam ENT Exam: Mucous Membranes Moist - Respiratory Exam Respiratory Exam: Clear to Auscultation Bilateral. absent: Rales, Rhonchi, Wheezes - Cardiovascular Exam Cardiovascular Exam: REGULAR RHYTHM, +S1, +S2 - GI/Abdominal Exam GI & Abdominal Exam: Normal Bowel Sounds, Soft. absent: Distended, Guarding, Rigid - Extremities Exam Additional comments: R wrist splinted; Right BKA, splinted and wrapped - Neurological Exam Neurological exam: Alert - Psychiatric Exam Psychiatric exam: Normal Affect, Normal Mood - Skin Skin Exam: Dry, Normal Color Results - Vital Signs Recent Vital Signs: Last Vital Signs Temp 99.0 F 10/03/16 06:00 Pulse 65 10/03/16 06:00 Resp 17 10/03/16 06:00 BP 180/88 H 10/03/16 06:00 Pulse Ox 94 L 10/03/16 06:00 - Labs Result Diagrams: 10/03/16 06:20 10/03/16 06:20 Labs: Laboratory Results - last 24 hr 10/02/16 10/02/16 10/03/16 16:43 21:24 06:20 WBC 10.9 D RBC 3.71 Hgb 10.2 L Hct 32.6 L MCV 87.9 MCH 27.5 MCHC 31.3 RDW 18.1 H Plt Count 148 MPV 11.8 H Gran % 84.6 H Lymph % (Auto) 5.9 L [place] % (Auto) 7.7 H Eos % (Auto) 1.3 L Baso % (Auto) 0.5 Gran # 9.23 H Lymph # 0.6 L [place] # 0.8 H Eos # 0.1 Baso # 0.05 PT INR Sodium Potassium Chloride Carbon Dioxide Anion Gap BUN Creatinine Est GFR ( Amer) Est GFR (Non-Af Amer) POC Glucose (mg/dL) 183 H 117 H Random Glucose Calcium Total Bilirubin AST ALT Alkaline Phosphatase Total Protein Albumin Globulin Albumin/Globulin Ratio 10/03/16 10/03/16 10/03/16 06:20 06:20 07:39 WBC RBC Hgb Hct MCV MCH MCHC RDW Plt Count MPV Gran % Lymph % (Auto) [place] % (Auto) Eos % (Auto) Baso % (Auto) Gran # Lymph # [place] # Eos # Baso # PT 31.8 H* INR 2.94 H Sodium 136 Potassium 5.5 H Chloride 98 Carbon Dioxide 21 Anion Gap 23 H BUN 52 H Creatinine 6.3 H Est GFR ( Amer) 8 Est GFR (Non-Af Amer) 7 POC Glucose (mg/dL) 181 H Random Glucose 171 H Calcium 9.6 Total Bilirubin 0.6 AST 16 ALT 15 Alkaline Phosphatase 188 H Total Protein 6.4 Albumin 3.5 Globulin 2.9 Albumin/Globulin Ratio 1.2 Assessment & Plan - Assessment and Plan (Free Text) Plan: 66 years old female has Hx of DVTs, Antiphospholipid syndrome, PAD, has a high risk to venous and arterial thromboembolic events. Antiphospholipid syndrome - hepatitis antibody titer negative - anticarlipin antibody POS - 12/18/2001: Factor II level 52% Factor V level was 28% (nl: 60-440) Factor V Leiden negative Factor XIII was 144 (n; 50-150) - Confirm: Hexagonal phospholipid titer value 11.8 sec (nl: up to 8) For short term: Pt INR was 4, held coumadin. Last coumadin was 7/4. INR 2.9 today. Pt received 10mg VitK today. Pending Lab For long-term: Continue long-term anticoagulation Goal INR from 1.8 to 2. Will revisit choice of anticoagulation. S/R/D/w Dr. Dozier - Date & Time Date: 10/03/16 Time: 11:09 <Marcial Dozier P - Last Filed: 10/13/16 01:06> Results - Vital Signs Recent Vital Signs: Last Vital Signs Temp 99.1 F 10/10/16 16:30 Pulse 73 10/10/16 16:30 Resp 16 10/10/16 16:30 BP 122/65 10/10/16 16:30 Pulse Ox 95 10/10/16 16:30 - Labs Result Diagrams: 10/10/16 08:00 10/10/16 08:00 Attending/Attestation - Attestation I have personally seen and examined this patient.: Yes I have fully participated in the care of the patient.: Yes I have reviewed all pertinent clinical information: Yes
[2016-10-03] MEDS: Insulin Detemir 100 units/ml Vial (Levemir) SC SCH ×2 (12:22→17:10)
--- NOTE | 2016-10-03 13:07 | CP.PCM.CON ---
<Angelica Dominguez - Last Filed: 10/07/16 19:01> History of Present Illness - History of Present Illness History of Present Illness: PGY-[address] Linares. Reason for consult: Parkinson s/p fall Patient is a 66 y/o with PMH of parkinson disease, diabetic foot ulcers s/p BKA of the right LE, osteomyolitis of the left toe s/p treatments, ESRD on HD, CAD s /p CABG, IDDM2, Antiphospholipid syndrome, h/o DVTs on coumadin, depression, Seizure Disorder, GERD, CHF, prior h/o fall presenting s/p fall at home. As per patient she was trying to get up from her wheelchair when she lost her balance and fell on the right side of her body. Patient denies LOC, admits to hitting head, denies bladder or bowel incontinent. Patient had HD earlier in the day prior to this event on 10/01. Patient's currently very somnolent, thus limited HPI and ROS. Spoke to patient's daughter in regards to patient's Parkinson diagnoses, as per the daughter patient was diagnosed with Parkinson disease and seizure disorders years ago, doesn't remember the neurologist note. Patient gets her anti- epileptic and Parkinson med refills through her PMD. Review of Systems - Review of Systems Systems not reviewed;Unavailable: Dementia, Altered Mental Status Past Patient History - Infectious Disease Hx of Infectious Diseases: None - Tetanus Immunizations Tetanus Immunization: Unknown - Past Medical History & Family History Past Medical History?: Yes - Past Social History Smoking Status: Former Smoker - CARDIAC Hx Cardiac Disorders: Yes (CAD ,DVT) Hx Hypertension: Yes - PULMONARY Hx Respiratory Disorders: Yes - NEUROLOGICAL Hx Neurological Disorder: Yes Hx Dizziness: Yes (syncope) - HEENT Hx HEENT Problems: Yes Other/Comment: wear glasses,L ear SOLOMON - RENAL Hx Chronic Kidney Disease: Yes Hx Dialysis: Yes ([facility] T,,SAT) Date of Last Dialysis Treatment: 10/01/16 Hx Renal Failure: Yes - ENDOCRINE/METABOLIC Hx Endocrine Disorders: Yes Hx Diabetes Mellitus Type 2: Yes - HEMATOLOGICAL/ONCOLOGICAL Hx Blood Disorders: Yes - INTEGUMENTARY Hx Dermatological Problems: Yes Other/Comment: L great toe amputated,RT BKA - MUSCULOSKELETAL/RHEUMATOLOGICAL Hx Musculoskeletal Disorders: Yes Hx Falls: No Other/Comment: RT BKA - GASTROINTESTINAL Hx Gastrointestinal Disorders: Yes Hx Diverticulitis: Yes Hx Gastroesophageal Reflux: Yes Other/Comment: hx of c-diff - GENITOURINARY/GYNECOLOGICAL Hx Genitourinary Disorders: No - PSYCHIATRIC Hx Psychophysiologic Disorder: Yes Hx Anxiety: Yes Hx Depression: Yes Hx Substance Use: No - SURGICAL HISTORY Hx Amputation: Yes (L Great toe.RT BKA) Hx Coronary Artery Bypass Graft: Yes Hx Open Heart Surgery: Yes - ANESTHESIA Hx Anesthesia: Yes Hx Anesthesia Reactions: No Hx Malignant Hyperthermia: No Meds Allergies/Adverse Reactions: Allergies Allergy/AdvReac Type Severity Reaction Status Date / Time ciprofloxacin Allergy SWELLING Verified 10/01/16 17:12 clarithromycin [From Biaxin] Allergy SWELLING Verified 10/01/16 17:12 pepper Allergy SWELLING Verified 10/01/16 17:12 - Medications Medications: Current Medications Albuterol/Ipratropium (Duoneb 3 Mg/0.5 Mg (3 Ml) Ud) 3 ml IH Q4H PRN PRN Reason: Shortness of Breath Last Admin: 10/03/16 07:50 Dose: 3 ml Alprazolam (Xanax) 0.5 mg PO TID PRN PRN Reason: Anxiety Amiodarone HCl (Cordarone) 200 mg PO DAILY [facility] Last Admin: 10/03/16 12:21 Dose: Not Given Amlodipine Besylate (Norvasc) 10 mg PO DAILY [facility] Last Admin: 10/03/16 12:23 Dose: Not Given Aspirin (Ecotrin) 81 mg PO DAILY [facility] Last Admin: 10/03/16 12:22 Dose: Not Given Atorvastatin Calcium (Lipitor) 80 mg PO DIN [facility] Last Admin: 10/02/16 18:40 Dose: 80 mg Carbidopa/Levodopa (Sinemet 10/100) 1 tab PO TID [facility] Last Admin: 10/03/16 12:24 Dose: Not Given Carvedilol (Coreg) 6.25 mg PO Q12 [facility] Last Admin: 10/03/16 12:21 Dose: Not Given Clonidine HCl (Catapres) 0.3 mg PO BID [facility] Last Admin: 10/03/16 12:20 Dose: Not Given Escitalopram Oxalate (Lexapro) 10 mg PO DAILY [facility] Last Admin: 10/03/16 12:22 Dose: Not Given Gabapentin (Neurontin) 100 mg PO BID [facility] PRN Reason: Protocol Last Admin: 10/03/16 12:23 Dose: Not Given Hydralazine HCl (Apresoline) 100 mg PO Q8H PRN PRN Reason: Systolic Blood Pressure Hydromorphone HCl (Dilaudid) 1.5 mg IVP Q4H PRN PRN Reason: Pain, severe (8-10) Last Admin: 10/03/16 06:07 Dose: 1.5 mg Insulin Detemir (Levemir) 4 unit SC BID [facility] Last Admin: 10/03/16 12:22 Dose: Not Given Insulin Human Lispro (Humalog High) 0 units SC ACHS [facility] PRN Reason: Protocol Last Admin: 10/03/16 08:56 Dose: 2 units Lisinopril (Zestril) 80 mg PO DAILY [facility] Last Admin: 10/03/16 12:24 Dose: Not Given Oxycodone/Acetaminophen (Percocet 5/325 Mg Tab) 1 tab PO Q4H PRN PRN Reason: Pain, moderate (4-7) Stop: 10/05/16 13:46 Last Admin: 10/02/16 21:43 Dose: 1 tab Pantoprazole Sodium (Protonix Inj) 40 mg IVP DAILY [facility] Last Admin: 10/03/16 12:23 Dose: Not Given Primidone (Mysoline) 50 mg PO DAILY [facility] Last Admin: 10/03/16 12:22 Dose: Not Given Sertraline HCl (Zoloft) 25 mg PO HS [facility] Last Admin: 10/02/16 21:43 Dose: 25 mg Sevelamer HCl (Renagel) 800 mg PO TID [facility] Last Admin: 10/03/16 12:23 Dose: Not Given Zinc Sulfate (Zinc Sulfate 220 Mg Cap) 220 mg PO DAILY [facility] Last Admin: 10/03/16 12:24 Dose: Not Given Physical Exam - Constitutional Appears: No Acute Distress, Older Than Stated Age, Chronically Ill - Head Exam Head Exam: NORMOCEPHALIC. absent: ATRAUMATIC - Eye Exam Eye Exam: EOMI, Normal appearance, PERRL. absent: Nystagmus, Scleral icterus Pupil Exam: NORMAL ACCOMODATION, PERRL - ENT Exam ENT Exam: Mucous Membranes Moist - Neck Exam Neck exam: Positive for: Normal Inspection - Respiratory Exam Respiratory Exam: Clear to Auscultation Bilateral, NORMAL BREATHING PATTERN. absent: Rales, Rhonchi, Wheezes, Respiratory Distress, Stridor - Cardiovascular Exam Cardiovascular Exam: REGULAR RHYTHM, +S1, +S2. absent: Systolic Murmur - GI/Abdominal Exam GI & Abdominal Exam: Normal Bowel Sounds, Soft. absent: Distended, Tenderness - Neurological Exam Neurological exam: Abnormal Gait Additional comments: Mental status: Patient is a&ox2, appears drowsy, unable to speak in full sentences. Attention, thought process and insight and judgment are not appropriate. CNII-CNXII- Perrla, VFF by confrontation, EMOI, no nystagamus, no ptosis, sensation intact to light touch. [place] muscles strong symmetrically, no facial asymmetry. Tongue protrude midline, no atrophy or fasciculation. Sensory: fine tough, pp temperature, vibration sensations and proprioceptive functions intact. There is no evidence of extinction to DSS. Normal cortical sensory function. Motor exam: amputated RLE, unable to move the stump due to pain. LLE 4/5, + resting tremors in the right upper extremities. Rigidity with passive movement of b/l upper extremities. UE strength 4/5 b/l. Reflex: deep tendon reflex were plus 2 with flexor plantar response on the LE. - Psychiatric Exam Psychiatric exam: Depressed - Skin Skin Exam: Warm Results - Vital Signs Recent Vital Signs: Last Vital Signs Temp 99.0 F 10/03/16 06:00 Pulse 65 10/03/16 06:00 Resp 17 10/03/16 06:00 BP 180/88 H 10/03/16 06:00 Pulse Ox 94 L 10/03/16 06:00 - Labs Result Diagrams: 10/07/16 08:30 10/07/16 07:40 Labs: Laboratory Results - last 24 hr 10/02/16 10/02/16 10/03/16 16:43 21:24 06:20 WBC 10.9 D RBC 3.71 Hgb 10.2 L Hct 32.6 L MCV 87.9 MCH 27.5 MCHC 31.3 RDW 18.1 H Plt Count 148 MPV 11.8 H Gran % 84.6 H Lymph % (Auto) 5.9 L [place] % (Auto) 7.7 H Eos % (Auto) 1.3 L Baso % (Auto) 0.5 Gran # 9.23 H Lymph # 0.6 L [place] # 0.8 H Eos # 0.1 Baso # 0.05 PT INR Sodium Potassium Chloride Carbon Dioxide Anion Gap BUN Creatinine Est GFR ( Amer) Est GFR (Non-Af Amer) POC Glucose (mg/dL) 183 H 117 H Random Glucose Calcium Total Bilirubin AST ALT Alkaline Phosphatase Total Protein Albumin Globulin Albumin/Globulin Ratio 10/03/16 10/03/16 10/03/16 06:20 06:20 07:39 WBC RBC Hgb Hct MCV MCH MCHC RDW Plt Count MPV Gran % Lymph % (Auto) [place] % (Auto) Eos % (Auto) Baso % (Auto) Gran # Lymph # [place] # Eos # Baso # PT 31.8 H* INR 2.94 H Sodium 136 Potassium 5.5 H Chloride 98 Carbon Dioxide 21 Anion Gap 23 H BUN 52 H Creatinine 6.3 H Est GFR ( Amer) 8 Est GFR (Non-Af Amer) 7 POC Glucose (mg/dL) 181 H Random Glucose 171 H Calcium 9.6 Total Bilirubin 0.6 AST 16 ALT 15 Alkaline Phosphatase 188 H Total Protein 6.4 Albumin 3.5 Globulin 2.9 Albumin/Globulin Ratio 1.2 10/03/16 11:05 WBC RBC Hgb Hct MCV MCH MCHC RDW Plt Count MPV Gran % Lymph % (Auto) [place] % (Auto) Eos % (Auto) Baso % (Auto) Gran # Lymph # [place] # Eos # Baso # PT INR Sodium Potassium Chloride Carbon Dioxide Anion Gap BUN Creatinine Est GFR ( Amer) Est GFR (Non-Af Amer) POC Glucose (mg/dL) 249 H Random Glucose Calcium Total Bilirubin AST ALT Alkaline Phosphatase Total Protein Albumin Globulin Albumin/Globulin Ratio - Imaging and Cardiology CT scan - head Status: Report reviewed by me Additional comment: CT head w/o contrast IMPRESSION: No intracranial hemorrhage or mass effect. Left basal ganglion lacunar infarct - slightly more conspicuous on the current exam. Minimal cerebral atrophy changes - no significant change here is appreciated. Atherosclerotic vascular calcifications - right vertebral artery most notable. Assessment & Plan - Assessment and Plan (Free Text) Assessment: Patient is a 66 y/o with PMH of parkinson disease, diabetic foot ulcers s/p BKA of the right LE, osteomyolitis of the left toe s/p treatments, ESRD on HD, CAD s /p CABG, IDDM2, Antiphospholipid syndrome, h/o DVTs on coumadin, depression, Seizure Disorder, GERD, CHF, prior h/o fall presenting s/p fall at home. Fall 2nd to multifactorial reasons: orthostatic giving h/o parkinson versus the fact that patient is on multiple meds, versus worsening of Parkinson versus gait instability 2nd to LE vasculopathy, right sided BKA versus Seizure disorders versus polypharmacy versus CVA/TIA. R/O [place] Plan: 1- CT of the head w/o contrast with Left basal ganglion lacunar infarct. 2- Continue asa, and high dose Lipitor. 3- Continue HD as per nephro 4- Patient can follow up as outpatient for Parkinson evaluation. Patient seen, examined, discussed with Dr Linares. - Date & Time Date: 10/03/16 Time: 13:00 <Fuad Linares - Last Filed: 10/09/16 12:10> Meds - Medications Medications: Current Medications Acetaminophen (Tylenol 650mg/20.3ml Solution Ud) 650 mg PO Q6H PRN PRN Reason: Temperature Last Admin: 10/07/16 19:34 Dose: 650 mg Acetaminophen (Tylenol 650 Mg Supp) 650 mg RC Q4H PRN PRN Reason: Fever >100.4 F Last Admin: 10/06/16 23:24 Dose: 650 mg Albuterol/Ipratropium (Duoneb 3 Mg/0.5 Mg (3 Ml) Ud) 3 ml IH Q4H PRN PRN Reason: Shortness of Breath Last Admin: 10/03/16 07:50 Dose: 3 ml Alprazolam (Xanax) 0.5 mg PO TID PRN PRN Reason: Anxiety Amiodarone HCl (Cordarone) 200 mg PO DAILY [facility] Last Admin: 10/09/16 11:00 Dose: 200 mg Amlodipine Besylate (Norvasc) 10 mg PO DAILY [facility] Last Admin: 10/09/16 10:59 Dose: 10 mg Aspirin (Ecotrin) 81 mg PO DAILY [facility] Last Admin: 10/09/16 10:58 Dose: 81 mg Atorvastatin Calcium (Lipitor) 80 mg PO DIN [facility] Last Admin: 10/08/16 17:52 Dose: 80 mg Carbidopa/Levodopa (Sinemet 10/100) 1 tab PO TID [facility] Last Admin: 10/09/16 10:58 Dose: 1 tab Carvedilol (Coreg) 6.25 mg PO Q12 [facility] Last Admin: 10/09/16 11:01 Dose: Not Given Clonidine HCl (Catapres) 0.3 mg PO Q8 [facility] Last Admin: 10/09/16 05:41 Dose: 0.3 mg Docusate Sodium (Colace) 100 mg PO DAILY [facility] Last Admin: 10/09/16 11:03 Dose: 100 mg Escitalopram Oxalate (Lexapro) 10 mg PO DAILY [facility] Last Admin: 10/09/16 10:58 Dose: 10 mg Folic Acid (Folic Acid) 1 mg PO DAILY [facility] Last Admin: 10/09/16 10:58 Dose: 1 mg Gabapentin (Neurontin) 100 mg PO BID [facility] PRN Reason: Protocol Last Admin: 10/09/16 10:58 Dose: 100 mg Hydralazine HCl (Apresoline) 100 mg PO Q8H [facility] Last Admin: 10/09/16 11:24 Dose: Not Given Piperacillin Sod/Tazobactam Sod (Zosyn 2.25 Gm In 0.9% 100 Ml) 2.25 gm in 100 mls @ 100 mls/hr IVPB Q8 [facility] PRN Reason: Protocol Stop: 10/14/16 07:01 Last Admin: 10/09/16 05:41 Dose: 100 mls/hr Insulin Detemir (Levemir) 6 unit SC BID [facility] Last Admin: 10/09/16 11:02 Dose: 6 unit Insulin Human Lispro (Humalog High) 0 units SC ACHS [facility] PRN Reason: Protocol Last Admin: 10/09/16 08:49 Dose: 4 units Lisinopril (Zestril) 80 mg PO DAILY [facility] Last Admin: 10/09/16 10:59 Dose: 80 mg Ondansetron HCl (Zofran Inj) 4 mg IVP ONCE PRN PRN Reason: Nausea/Vomiting Oxycodone/Acetaminophen (Percocet 5/325 Mg Tab) 1 tab PO Q6H PRN PRN Reason: Pain, moderate (4-7) Stop: 10/09/16 14:51 Last Admin: 10/09/16 11:06 Dose: 1 tab Pantoprazole Sodium (Protonix Inj) 40 mg IVP DAILY [facility] Last Admin: 10/09/16 11:05 Dose: 40 mg Primidone (Mysoline) 50 mg PO DAILY [facility] Last Admin: 10/09/16 10:58 Dose: 50 mg Sertraline HCl (Zoloft) 25 mg PO HS [facility] Last Admin: 10/08/16 21:13 Dose: 25 mg Sevelamer HCl (Renagel) 800 mg PO TID [facility] Last Admin: 10/09/16 10:58 Dose: 800 mg Warfarin Sodium (Coumadin) 5 mg PO 1800 [facility] PRN Reason: Protocol Zinc Sulfate (Zinc Sulfate 220 Mg Cap) 220 mg PO DAILY [facility] Last Admin: 10/09/16 10:58 Dose: 220 mg Results - Vital Signs Recent Vital Signs: Last Vital Signs Temp 98.3 F 10/09/16 11:47 Pulse 53 L 10/09/16 11:47 Resp 19 10/09/16 11:47 BP 174/66 H 10/09/16 11:47 Pulse Ox 98 10/09/16 06:00 - Labs Result Diagrams: 10/09/16 07:00 10/09/16 07:00 Labs: Laboratory Results - last 24 hr 10/08/16 10/08/16 10/08/16 07:24 14:43 16:11 WBC RBC Hgb Hct MCV MCH MCHC RDW Plt Count MPV Gran % Lymph % (Auto) [place] % (Auto) Eos % (Auto) Baso % (Auto) Gran # Lymph # [place] # Eos # Baso # PT INR APTT Sodium Potassium Chloride Carbon Dioxide Anion Gap BUN Creatinine Est GFR ( Amer) Est GFR (Non-Af Amer) POC Glucose (mg/dL) 212 H 157 H 174 H Random Glucose Calcium Phosphorus Magnesium Total Bilirubin AST ALT Alkaline Phosphatase Total Protein Albumin Globulin Albumin/Globulin Ratio 10/08/16 10/09/16 10/09/16 21:24 07:00 07:00 WBC 7.5 RBC 3.81 Hgb 10.4 L Hct 32.2 L MCV 84.5 MCH 27.3 MCHC 32.3 RDW 17.1 H Plt Count 223 MPV 10.5 Gran % 78.0 H Lymph % (Auto) 10.3 L [place] % (Auto) 9.4 H Eos % (Auto) 2.0 Baso % (Auto) 0.3 Gran # 5.88 Lymph # 0.8 L [place] # 0.7 H Eos # 0.2 Baso # 0.02 PT 23.4 H INR 2.17 H APTT 65.4 H Sodium Potassium Chloride Carbon Dioxide Anion Gap BUN Creatinine Est GFR ( Amer) Est GFR (Non-Af Amer) POC Glucose (mg/dL) 247 H Random Glucose Calcium Phosphorus Magnesium Total Bilirubin AST ALT Alkaline Phosphatase Total Protein Albumin Globulin Albumin/Globulin Ratio 10/09/16 10/09/16 10/09/16 07:00 07:43 10:51 WBC RBC Hgb Hct MCV MCH MCHC RDW Plt Count MPV Gran % Lymph % (Auto) [place] % (Auto) Eos % (Auto) Baso % (Auto) Gran # Lymph # [place] # Eos # Baso # PT INR APTT Sodium 139 Potassium 4.1 Chloride 99 Carbon Dioxide 25 Anion Gap 19 BUN 46 H Creatinine 4.8 H Est GFR ( Amer) 11 Est GFR (Non-Af Amer) 9 POC Glucose (mg/dL) 232 H 287 H Random Glucose 220 H Calcium 9.4 Phosphorus 5.0 H Magnesium 2.3 H Total Bilirubin 0.6 AST 28 ALT 8 Alkaline Phosphatase 151 H Total Protein 7.0 Albumin 3.6 Globulin 3.5 Albumin/Globulin Ratio 1.0 L Attending/Attestation - Attestation I have personally seen and examined this patient.: Yes I have fully participated in the care of the patient.: Yes I have reviewed all pertinent clinical information: Yes
--- NOTE | 2016-10-03 13:45 | US ---
PROCEDURE: Duplex arterial ultrasound of the right groin. HISTORY: Diabetes. Ischemia. Evaluate right common femoral artery patency. PHYSICIAN(S): Carl Morris MD. FINDINGS: Extensive atherosclerotic disease is seen in the right common femoral artery and proximal right SFA/PFA Normal velocities are seen in the visualized portions of the right common femoral artery. Elevated velocities are noted in the proximal right SFA, consistent with 50-99 percent proximal right SFA stenosis. The proximal right profunda femoral artery is patent. IMPRESSION: 1. Extensive atherosclerotic disease in the right groin. 2. 50-99 percent stenosis in the proximal right SFA.
[2016-10-03 16:14] LABS: INR 3.15 (0.93-1.08)
--- NOTE | 2016-10-03 18:06 | CARD ---
APPROVED REPORT EXAM: Two-dimensional and M-mode echocardiogram with Doppler and color Doppler. INDICATION S/P SYNCOPE 2D DIMENSIONS Left Atrium (2D)5.2 (1.6-4.0cm)IVSd1.3 (0.7-1.1cm) LVDd3.6 (3.9-5.9cm)LVOT Diameter1.7 (1.8-2.4cm) PWd1.8 (0.7-1.1cm)LVDs2.7 (2.5-4.0cm) FS (%) 24.7 %LVEF (%)40.0 (>50%) M-Mode DIMENSIONS Aortic Root2.70 (2.2-3.7cm)Aortic Cusp Exc.1.20 (1.5-2.0cm) Aortic Valve AoV Peak Eqybjuic572.0cm/sAoV VTI49.5cmAO Peak GR.17mmHg LVOT Peak Geczvzoi35.7cm/sLVOT VTI21.00cmAO Mean GR.9mmHg YUDITH (VMAX)0.03hv0NSQ (VTI)0.96cm2 Mitral Valve MV E Rnblphzu563.0cm/sMV A Rnwxbbxz18.3cm/sMV [id number] E/A ratio1.4MVA (PHT)2.68cm2 TDI Lateral E' Peak V7.51cm/sMedial E' Peak V3.41cm/sE/Lateral E'17.7 E/Medial E'39.0 Pulmonary Valve PV Peak Qafjjiwq14.6cm/sPV Peak Grad.2mmHg Tricuspid Valve TR Peak Twupooki201lo/sRAP [id number] Peak Gr.54mmHg [id number] LEFT VENTRICLE The left ventricle is normal size. There is borderline to mild concentric left ventricular hypertrophy. The systolic function is moderately impaired. There is a flattened septum consistent with right ventricle pressure overload. RIGHT VENTRICLE The right ventricle is normal size. There is normal right ventricular wall thickness. The right ventricular systolic function is normal. ATRIA The left atrium is moderately dilated. The right atrium is mildly dilated. AORTIC VALVE The aortic valve is moderately sclerotic. There is trace valvular aortic stenosis. MITRAL VALVE Mitral annular calcification is severe. Mitral regurgitation is mild. TRICUSPID VALVE There is severe tricuspid regurgitation. There is moderate to severe pulmonary hypertension. GREAT VESSELS The aortic root is normal in size. PERICARDIAL EFFUSION There is no pericardial effusion. <Conclusion> The left ventricle is normal size. There is borderline to mild concentric left ventricular hypertrophy. The systolic function is moderately impaired. There is a flattened septum consistent with right ventricle pressure overload. There is severe tricuspid regurgitation. There is moderate to severe pulmonary hypertension.
--- NOTE | 2016-10-03 18:57 | CP.PCM.PN ---
Addendum entered and electronically signed by Evan Contreras DO 10/04/16 13:57: Patient was seen and examined and discussed case at length with Dr. Huggins. Patient scheduled for surgery with Dr. Keating tomorrow. FFP to be given tonight to reverse anticoagulation. Will discuss with ortho/heme/nephro as to when to re-start anticoagulation. Evan Contreras D.O. PGY-2 Original Note: <VONDA HUGGINS - Last Filed: 10/03/16 18:54> Subjective - Date & Time of Evaluation Date of Evaluation: 10/03/16 Time of Evaluation: 06:45 - Subjective Subjective: Vonda Huggins D.O. PGY1 - Internal Medicine Progress Note - [facility] Patient seen and examined at beside. Patient is still complaining of severe pain in her right leg stump and right wrist, and a headache. She denies any CP, SOB, focal weakness, confusion, memory loss, vision changes. She is scheduled for the OR tomorrow for ORIF right femur. Objective - Vital Signs/Intake and Output Vital Signs (last 24 hours): Temp Pulse Resp BP Pulse Ox 99.4 F 72 18 180/88 H 94 L 10/03/16 17:13 10/03/16 17:13 10/03/16 17:13 10/03/16 06:00 10/03/16 06:00 Intake and Output: 10/03/16 10/03/16 06:59 18:59 Intake Total 300 Output Total 0 Balance 300 - Medications Medications: Current Medications Albuterol/Ipratropium (Duoneb 3 Mg/0.5 Mg (3 Ml) Ud) 3 ml IH Q4H PRN PRN Reason: Shortness of Breath Last Admin: 10/03/16 07:50 Dose: 3 ml Alprazolam (Xanax) 0.5 mg PO TID PRN PRN Reason: Anxiety Amiodarone HCl (Cordarone) 200 mg PO DAILY [facility] Last Admin: 10/03/16 12:21 Dose: Not Given Amlodipine Besylate (Norvasc) 10 mg PO DAILY [facility] Last Admin: 10/03/16 12:23 Dose: Not Given Aspirin (Ecotrin) 81 mg PO DAILY [facility] Last Admin: 10/03/16 12:22 Dose: Not Given Atorvastatin Calcium (Lipitor) 80 mg PO DIN [facility] Last Admin: 10/03/16 17:10 Dose: 80 mg Carbidopa/Levodopa (Sinemet 10/100) 1 tab PO TID [facility] Last Admin: 10/03/16 17:09 Dose: 1 tab Carvedilol (Coreg) 6.25 mg PO Q12 [facility] Last Admin: 10/03/16 12:21 Dose: Not Given Clonidine HCl (Catapres) 0.3 mg PO Q8 [facility] Escitalopram Oxalate (Lexapro) 10 mg PO DAILY [facility] Last Admin: 10/03/16 12:22 Dose: Not Given Gabapentin (Neurontin) 100 mg PO BID [facility] PRN Reason: Protocol Last Admin: 10/03/16 17:10 Dose: 100 mg Hydralazine HCl (Apresoline) 100 mg PO Q8H PRN PRN Reason: Systolic Blood Pressure Hydromorphone HCl (Dilaudid) 1.5 mg IVP Q4H PRN PRN Reason: Pain, severe (8-10) Last Admin: 10/03/16 17:28 Dose: 1.5 mg Insulin Detemir (Levemir) 4 unit SC BID [facility] Last Admin: 10/03/16 17:10 Dose: 4 unit Insulin Human Lispro (Humalog High) 0 units SC ACHS [facility] PRN Reason: Protocol Last Admin: 10/03/16 17:10 Dose: 2 units Lisinopril (Zestril) 80 mg PO DAILY [facility] Last Admin: 10/03/16 12:24 Dose: Not Given Oxycodone/Acetaminophen (Percocet 5/325 Mg Tab) 1 tab PO Q4H PRN PRN Reason: Pain, moderate (4-7) Stop: 10/05/16 13:46 Last Admin: 10/02/16 21:43 Dose: 1 tab Pantoprazole Sodium (Protonix Inj) 40 mg IVP DAILY [facility] Last Admin: 10/03/16 12:23 Dose: Not Given Primidone (Mysoline) 50 mg PO DAILY [facility] Last Admin: 10/03/16 12:22 Dose: Not Given Sertraline HCl (Zoloft) 25 mg PO HS [facility] Last Admin: 10/02/16 21:43 Dose: 25 mg Sevelamer HCl (Renagel) 800 mg PO TID [facility] Last Admin: 10/03/16 17:10 Dose: 800 mg Zinc Sulfate (Zinc Sulfate 220 Mg Cap) 220 mg PO DAILY [facility] Last Admin: 10/03/16 12:24 Dose: Not Given - Labs Labs: 10/03/16 06:20 10/03/16 06:20 PT 34.0 Seconds (9.9-11.8) H* 10/03/16 15:50 INR 3.15 (0.93-1.08) H 10/03/16 15:50 APTT 40.6 Seconds (23.7-30.8) H 10/01/16 17:40 - Constitutional Appears: Non-toxic, Chronically Ill - Head Exam Head Exam: NORMOCEPHALIC Additional comments: Abrasion over right brow - Eye Exam Eye Exam: EOMI, Normal appearance - ENT Exam ENT Exam: Mucous Membranes Moist - Neck Exam Neck Exam: Full ROM - Respiratory Exam Respiratory Exam: Clear to Ausculation Bilateral. absent: Rales, Rhonchi, Wheezes - Cardiovascular Exam Cardiovascular Exam: RRR, +S1, +S2 - GI/Abdominal Exam GI & Abdominal Exam: Soft, Normal Bowel Sounds. absent: Tenderness - Extremities Exam Additional comments: Right BKA, splinted and wrapped, extremely tender. Left foot 1.5cm ulcer with necrotic base, black eschar, and keratotic rim, surrounding skin normal, no erythema or warmth. - Neurological Exam Neurological Exam: Alert, Awake - Psychiatric Exam Psychiatric exam: Normal Affect, Normal Mood - Skin Skin Exam: Dry, Intact Assessment and Plan - Assessment and Plan (Free Text) Assessment: 66 yo F with a PMH of ESRD on Dialysis T/R/Sa, CAD/CABG, IDDIM, Antiphospholipid syndrome, Depression, Seizure Disorder, GERD, CHF Systolic and Diastolic Dysfunction, Parkinsons Disease, past DVTs, s/p R BKA, s/p CABG who initially presented complaining of a fall. After the fall, daughter says that patient was confused, said strange things, but quickly regained orientation. XR on admission showed right femur fracture, scheduled for OR tomorrow. Plan: 1.) Trauma s/p Fall, 2/2 possible syncopal event VS loss of balance - ECHO pending, Carotid U/S pending - Consult neurology ([facility]deoshun) - TSH slightly elevated, likely as acute phase reaction - Right knee XR significant for fractured distal femur - Ortho consulted ([facility]), appreciate all recs, scheduled for OR tomorrow despite multiple medical comorbidities, will medically optimize - Cardio consulted (Elieser), appreciate all recs. - Currently therapeutic INR, warfarin held since admission, will administer vitamin K and recheck PT/INR, as per Dr. Mon - Hydromorphone PRN 2. LLE Ankle Ulcer - Wound Culture pending - Podiatry consult requested 3. ESRD on Dialysis - Continue Sevelamer - Consult nephro, appreciate all recs; prior to admission, T/R/Sa Dialysis - HD scheduled today 4. H/O CAD, CHF, HTN - Continue amiodarone, amlodipine, ASA 81, Atorvastatin, Carvedilol, Clonidine, Hydralazine, lisinopril 5. IDDM - Continue Insulin detemir - Increase lispro sliding scale to high dose protocol 6. Seizure Disorder - Continue Gabapentin, Primidone 7. Parkinsons - Continue Carbidopa/Levodopa 8. GERD - Continue Pantoprazole 9. Depression, Anxiety - Continue Escitalopram, Alprazolam, Sertraline 10. Antiphospholipid syndrome - At home, anticoagulated with warfarin, currently holding pending surgery tomorrow - Consult Heme/Onc ([facility]asia) 12. H/O DVTs - ASA 81, no heparin at this time Patient was seen, examined, and discussed in detail with senior resident Dr. Contreras PGY2 and attending Dr. Morton <Wm Aguirre - Last Filed: 10/10/16 12:14> Objective - Vital Signs/Intake and Output Vital Signs (last 24 hours): Temp Pulse Resp BP Pulse Ox 99.5 F 59 L 18 188/67 H 96 10/10/16 07:34 10/10/16 07:34 10/10/16 07:34 10/10/16 07:34 10/10/16 07:34 Intake and Output: 10/10/16 10/10/16 06:59 18:59 Intake Total 100 Balance 100 - Medications Medications: Current Medications Acetaminophen (Tylenol 650mg/20.3ml Solution Ud) 650 mg PO Q6H PRN PRN Reason: Temperature Last Admin: 10/07/16 19:34 Dose: 650 mg Acetaminophen (Tylenol 650 Mg Supp) 650 mg RC Q4H PRN PRN Reason: Fever >100.4 F Last Admin: 10/06/16 23:24 Dose: 650 mg Albuterol/Ipratropium (Duoneb 3 Mg/0.5 Mg (3 Ml) Ud) 3 ml IH Q4H PRN PRN Reason: Shortness of Breath Last Admin: 10/03/16 07:50 Dose: 3 ml Alprazolam (Xanax) 0.5 mg PO TID PRN PRN Reason: Anxiety Amiodarone HCl (Cordarone) 200 mg PO DAILY [facility] Last Admin: 10/09/16 11:00 Dose: 200 mg Amlodipine Besylate (Norvasc) 10 mg PO DAILY [facility] Last Admin: 10/09/16 10:59 Dose: 10 mg Aspirin (Ecotrin) 81 mg PO DAILY [facility] Last Admin: 10/09/16 10:58 Dose: 81 mg Atorvastatin Calcium (Lipitor) 80 mg PO DIN [facility] Last Admin: 10/09/16 18:34 Dose: 80 mg Carbidopa/Levodopa (Sinemet 10/100) 1 tab PO TID [facility] Last Admin: 10/09/16 18:41 Dose: 1 tab Carvedilol (Coreg) 6.25 mg PO Q12 [facility] Last Admin: 10/09/16 21:15 Dose: Not Given Clonidine HCl (Catapres) 0.3 mg PO Q8 [facility] Last Admin: 10/10/16 05:18 Dose: 0.3 mg Docusate Sodium (Colace) 100 mg PO DAILY [facility] Last Admin: 10/09/16 11:03 Dose: 100 mg Escitalopram Oxalate (Lexapro) 10 mg PO DAILY [facility] Last Admin: 10/09/16 10:58 Dose: 10 mg Folic Acid (Folic Acid) 1 mg PO DAILY [facility] Last Admin: 10/09/16 10:58 Dose: 1 mg Gabapentin (Neurontin) 100 mg PO BID [facility] PRN Reason: Protocol Last Admin: 10/09/16 18:34 Dose: 100 mg Hydralazine HCl (Apresoline) 100 mg PO Q8H [facility] Last Admin: 10/10/16 02:49 Dose: 100 mg Piperacillin Sod/Tazobactam Sod (Zosyn 2.25 Gm In 0.9% 100 Ml) 2.25 gm in 100 mls @ 100 mls/hr IVPB Q8 [facility] PRN Reason: Protocol Stop: 10/14/16 07:01 Last Admin: 10/10/16 05:11 Dose: 100 mls/hr Insulin Detemir (Levemir) 6 unit SC BID [facility] Last Admin: 10/09/16 18:41 Dose: 6 unit Insulin Human Lispro (Humalog High) 0 units SC ACHS [facility] PRN Reason: Protocol Last Admin: 10/09/16 21:15 Dose: Not Given Lisinopril (Zestril) 80 mg PO DAILY [facility] Last Admin: 10/09/16 10:59 Dose: 80 mg Ondansetron HCl (Zofran Inj) 4 mg IVP ONCE PRN PRN Reason: Nausea/Vomiting Pantoprazole Sodium (Protonix Inj) 40 mg IVP DAILY [facility] Last Admin: 10/09/16 11:05 Dose: 40 mg Primidone (Mysoline) 50 mg PO DAILY [facility] Last Admin: 10/09/16 10:58 Dose: 50 mg Sertraline HCl (Zoloft) 25 mg PO HS [facility] Last Admin: 10/09/16 21:07 Dose: 25 mg Sevelamer HCl (Renagel) 800 mg PO TID [facility] Last Admin: 10/09/16 18:34 Dose: 800 mg Warfarin Sodium (Coumadin) 5 mg PO 1800 [facility] PRN Reason: Protocol Last Admin: 10/09/16 18:33 Dose: 5 mg Zinc Sulfate (Zinc Sulfate 220 Mg Cap) 220 mg PO DAILY [facility] Last Admin: 10/09/16 10:58 Dose: 220 mg - Labs Labs: 10/10/16 08:00 10/10/16 08:00 PT 35.5 Seconds (9.9-11.8) H* 10/10/16 08:00 INR 3.29 (0.93-1.08) H 10/10/16 08:00 APTT 45.3 Seconds (23.7-30.8) H 10/10/16 08:00 Attending/Attestation - Attestation I have personally seen and examined this patient.: Yes I have fully participated in the care of the patient.: Yes I have reviewed all pertinent clinical information, including history, physical exam and plan: Yes Notes (Text): 10/10/16 12:14 Medical record note made by resident after discussion with my direction and input after patient personally seen and examined by me. I have reviewed the chart and agree that the record accurately reflects my personal performance of the history, physical, data review and medical decision making for the course of this patient.
[2016-10-04] MEDS: HYDROmorphone 2 mg/ml ISec IVP PRN ×3 (05:51→21:46)
[2016-10-04] MEDS ORDERED: Bupivacaine 0.5% Inj(30mL) ONE ×2 (07:08→09:43)
[2016-10-04 07:15] LABS: BASO # 0.02 K/mm3 (0.0-2.0); BASO % 0.2 % (0.0-3.0); EOS # 0.1 (0.0-0.7); EOS % 0.8 % (1.5-5.0); GRAN # 7.86 (1.4-6.5); GRAN % 77.6 % (50.0-68.0); HEMOGLOBIN 9.2 gm/dL (12.0-16.0); LYMPH % 9.5 % (22.0-35.0); MEAN CELL VOLUME 88.3 fL (80.0-105.0); MEAN CORPUSCULAR HGB CONC 30.6 g/dl (31.0-37.0); MEAN PLATELET VOLUME 11.2 fl (7.0-11.0); MONO # 1.2 (0.1-0.6); MONO % 11.9 % (1.0-6.0); PLATELET COUNT 138 10^3/uL (120.0-450.0); RBC 3.41 10^6/uL (3.5-6.1); RED CELL DISTRIBUTION WIDTH 17.7 % (11.5-14.5); WHITE BLOOD COUNT 10.1 10^3/ul (4.5-11.0)
[2016-10-04 07:19] LABS: INR 1.31 (0.93-1.08); PARTIAL THROMBOPLASTIN TIME 34.9 Seconds (23.7-30.8); PROTHROMBIN TIME 14.2 Seconds (9.9-11.8)
[2016-10-04 07:26] LABS: ALB/GLOB RATIO 1.2 (1.1-1.8); ALBUMIN 3.9 g/dL (3.0-4.8); CALCIUM 9.6 mg/dL (8.4-10.5)
[2016-10-04] MEDS ORDERED: Propofol 10 mg/ml Inj (20 ML) ONE (07:45)
--- NOTE | 2016-10-04 07:53 | CP.PCM.PN ---
<Nelia Jacobs - Last Filed: 10/04/16 19:24> Subjective - Date & Time of Evaluation Date of Evaluation: 10/04/16 Time of Evaluation: 07:50 - Subjective Subjective: PGY-[address] Dozier Pt seen and examined. resting comfortably in bed. No pain at the moment. Denies CP, SOB, N/V/C/D, dysuria Objective - Vital Signs/Intake and Output Vital Signs (last 24 hours): Temp Pulse Resp BP Pulse Ox 99.1 F 63 18 177/59 H 97 10/04/16 06:00 10/04/16 06:00 10/04/16 06:00 10/04/16 06:00 10/04/16 06:00 Intake and Output: 10/04/16 10/04/16 06:59 18:59 Intake Total 0 Balance 0 - Medications Medications: Current Medications Albuterol/Ipratropium (Duoneb 3 Mg/0.5 Mg (3 Ml) Ud) 3 ml IH Q4H PRN PRN Reason: Shortness of Breath Last Admin: 10/03/16 07:50 Dose: 3 ml Alprazolam (Xanax) 0.5 mg PO TID PRN PRN Reason: Anxiety Amiodarone HCl (Cordarone) 200 mg PO DAILY [facility] Last Admin: 10/03/16 12:21 Dose: Not Given Amlodipine Besylate (Norvasc) 10 mg PO DAILY [facility] Last Admin: 10/03/16 12:23 Dose: Not Given Aspirin (Ecotrin) 81 mg PO DAILY [facility] Last Admin: 10/03/16 12:22 Dose: Not Given Atorvastatin Calcium (Lipitor) 80 mg PO DIN [facility] Last Admin: 10/03/16 17:10 Dose: 80 mg Carbidopa/Levodopa (Sinemet 10/100) 1 tab PO TID [facility] Last Admin: 10/03/16 17:09 Dose: 1 tab Carvedilol (Coreg) 6.25 mg PO Q12 [facility] Last Admin: 10/03/16 23:29 Dose: 6.25 mg Clonidine HCl (Catapres) 0.3 mg PO Q8 [facility] Last Admin: 10/04/16 05:52 Dose: 0.3 mg Escitalopram Oxalate (Lexapro) 10 mg PO DAILY [facility] Last Admin: 10/03/16 12:22 Dose: Not Given Gabapentin (Neurontin) 100 mg PO BID [facility] PRN Reason: Protocol Last Admin: 10/03/16 17:10 Dose: 100 mg Hydralazine HCl (Apresoline) 100 mg PO Q8H PRN PRN Reason: Systolic Blood Pressure Last Admin: 10/04/16 05:53 Dose: 100 mg Hydromorphone HCl (Dilaudid) 1.5 mg IVP Q4H PRN PRN Reason: Pain, severe (8-10) Last Admin: 10/04/16 05:51 Dose: 1.5 mg Insulin Detemir (Levemir) 4 unit SC BID [facility] Last Admin: 10/03/16 17:10 Dose: 4 unit Insulin Human Lispro (Humalog High) 0 units SC ACHS [facility] PRN Reason: Protocol Last Admin: 10/03/16 23:34 Dose: 2 units Lisinopril (Zestril) 80 mg PO DAILY [facility] Last Admin: 10/03/16 12:24 Dose: Not Given Oxycodone/Acetaminophen (Percocet 5/325 Mg Tab) 1 tab PO Q4H PRN PRN Reason: Pain, moderate (4-7) Stop: 10/05/16 13:46 Last Admin: 10/02/16 21:43 Dose: 1 tab Pantoprazole Sodium (Protonix Inj) 40 mg IVP DAILY [facility] Last Admin: 10/03/16 12:23 Dose: Not Given Primidone (Mysoline) 50 mg PO DAILY [facility] Last Admin: 10/03/16 12:22 Dose: Not Given Sertraline HCl (Zoloft) 25 mg PO HS [facility] Last Admin: 10/03/16 23:28 Dose: 25 mg Sevelamer HCl (Renagel) 800 mg PO TID [facility] Last Admin: 10/03/16 17:10 Dose: 800 mg Zinc Sulfate (Zinc Sulfate 220 Mg Cap) 220 mg PO DAILY [facility] Last Admin: 10/03/16 12:24 Dose: Not Given - Labs Labs: 10/04/16 05:30 10/04/16 05:46 PT 14.2 Seconds (9.9-11.8) H 10/04/16 05:30 INR 1.31 (0.93-1.08) H 10/04/16 05:30 APTT 34.9 Seconds (23.7-30.8) H 10/04/16 05:30 - Constitutional Appears: No Acute Distress - Head Exam Head Exam: NORMAL INSPECTION, NORMOCEPHALIC Additional comments: abrasion on R forehead, scabbed - Eye Exam Eye Exam: EOMI, Normal appearance, PERRL. absent: Scleral icterus Pupil Exam: NORMAL ACCOMODATION - ENT Exam ENT Exam: Mucous Membranes Moist - Respiratory Exam Respiratory Exam: Clear to Ausculation Bilateral. absent: Rales, Rhonchi, Wheezes - Cardiovascular Exam Cardiovascular Exam: REGULAR RHYTHM, +S1, +S2 - GI/Abdominal Exam GI & Abdominal Exam: Soft, Normal Bowel Sounds. absent: Guarding, Rigid, Tenderness - Extremities Exam Extremities Exam: Normal Capillary Refill. absent: Calf Tenderness, Pedal Edema Additional comments: R BKA. R wrist splint. heel cushioned. scd - Neurological Exam Neurological Exam: Alert, Awake, Oriented x3 - Psychiatric Exam Psychiatric exam: Normal Affect, Normal Mood - Skin Skin Exam: Dry, Warm Assessment and Plan - Assessment and Plan (Free Text) Plan: 66 years old female has Hx of DVTs, Antiphospholipid syndrome, PAD, questionable seizure Hx, has a high risk to venous and arterial thromboembolic events. Pt has coumadin coagulopathy. Pt sustained R femur fracture, and will undergo ORIF with nail. Pt has cellulitis. Antiphospholipid syndrome - hepatitis antibody titer negative - anticarlipin antibody POS - 12/18/2001: Factor II level 52% Factor V level was 28% (nl: 60-440) Factor V Leiden negative Factor XIII was 144 (n; 50-150) - Confirm: Hexagonal phospholipid titer value 11.8 sec (nl: up to 8) For short term: Pt INR was 4, held coumadin. Last coumadin was 10/01. INR 3 today s/p VitK Watch fat embolism Watch clots For long-term: ASA 81 Continue long-term anticoagulation with coumadin Goal INR from 2-3 heparin bridge L foot wound culture - Gram (-) walter Buttock wound - Gram (+) cocci, e-coli - consider antibiotics. Other imagin-99% stenosis in proximal R SFA Echo: EF 40. RVSP 64 severe tricuspid regurg S/R/D/w Dr. Dozier <Marcial Dozier P - Last Filed: 10/13/16 01:03> Objective - Vital Signs/Intake and Output Vital Signs (last 24 hours): Temp Pulse Resp BP Pulse Ox 99.1 F 73 16 122/65 95 10/10/16 16:30 10/10/16 16:30 10/10/16 16:30 10/10/16 16:30 10/10/16 16:30 - Labs Labs: 10/10/16 08:00 10/10/16 08:00 PT 35.5 Seconds (9.9-11.8) H* 10/10/16 08:00 INR 3.29 (0.93-1.08) H 10/10/16 08:00 APTT 45.3 Seconds (23.7-30.8) H 10/10/16 08:00 Attending/Attestation - Attestation I have personally seen and examined this patient.: Yes I have fully participated in the care of the patient.: Yes I have reviewed all pertinent clinical information, including history, physical exam and plan: Yes
[2016-10-04] MEDS: Insulin Lispro (HUMAlog) HIGH Coverage SC SCH ×5 (08:03→21:37)
--- NOTE | 2016-10-04 08:04 | CP.PCM.PN ---
Subjective - Date & Time of Evaluation Date of Evaluation: 10/04/16 Time of Evaluation: 08:04 - Subjective Subjective: Pt in OR. She is for HD in am. Not able to be seen. Objective - Vital Signs/Intake and Output Vital Signs (last 24 hours): Temp Pulse Resp BP Pulse Ox 99.1 F 63 18 177/59 H 97 10/04/16 06:00 10/04/16 06:00 10/04/16 06:00 10/04/16 06:00 10/04/16 06:00 Intake and Output: 10/04/16 10/04/16 06:59 18:59 Intake Total 0 Balance 0 - Medications Medications: Current Medications Albuterol/Ipratropium (Duoneb 3 Mg/0.5 Mg (3 Ml) Ud) 3 ml IH Q4H PRN PRN Reason: Shortness of Breath Last Admin: 10/03/16 07:50 Dose: 3 ml Alprazolam (Xanax) 0.5 mg PO TID PRN PRN Reason: Anxiety Amiodarone HCl (Cordarone) 200 mg PO DAILY [facility] Last Admin: 10/03/16 12:21 Dose: Not Given Amlodipine Besylate (Norvasc) 10 mg PO DAILY [facility] Last Admin: 10/03/16 12:23 Dose: Not Given Aspirin (Ecotrin) 81 mg PO DAILY [facility] Last Admin: 10/03/16 12:22 Dose: Not Given Atorvastatin Calcium (Lipitor) 80 mg PO DIN [facility] Last Admin: 10/03/16 17:10 Dose: 80 mg Carbidopa/Levodopa (Sinemet 10/100) 1 tab PO TID [facility] Last Admin: 10/03/16 17:09 Dose: 1 tab Carvedilol (Coreg) 6.25 mg PO Q12 [facility] Last Admin: 10/03/16 23:29 Dose: 6.25 mg Clonidine HCl (Catapres) 0.3 mg PO Q8 [facility] Last Admin: 10/04/16 05:52 Dose: 0.3 mg Escitalopram Oxalate (Lexapro) 10 mg PO DAILY [facility] Last Admin: 10/03/16 12:22 Dose: Not Given Gabapentin (Neurontin) 100 mg PO BID [facility] PRN Reason: Protocol Last Admin: 10/03/16 17:10 Dose: 100 mg Hydralazine HCl (Apresoline) 100 mg PO Q8H PRN PRN Reason: Systolic Blood Pressure Last Admin: 10/04/16 05:53 Dose: 100 mg Hydromorphone HCl (Dilaudid) 1.5 mg IVP Q4H PRN PRN Reason: Pain, severe (8-10) Last Admin: 10/04/16 05:51 Dose: 1.5 mg Insulin Detemir (Levemir) 4 unit SC BID [facility] Last Admin: 10/03/16 17:10 Dose: 4 unit Insulin Human Lispro (Humalog High) 0 units SC ACHS [facility] PRN Reason: Protocol Last Admin: 10/04/16 08:03 Dose: Not Given Lisinopril (Zestril) 80 mg PO DAILY [facility] Last Admin: 10/03/16 12:24 Dose: Not Given Oxycodone/Acetaminophen (Percocet 5/325 Mg Tab) 1 tab PO Q4H PRN PRN Reason: Pain, moderate (4-7) Stop: 10/05/16 13:46 Last Admin: 10/02/16 21:43 Dose: 1 tab Pantoprazole Sodium (Protonix Inj) 40 mg IVP DAILY [facility] Last Admin: 10/03/16 12:23 Dose: Not Given Primidone (Mysoline) 50 mg PO DAILY [facility] Last Admin: 10/03/16 12:22 Dose: Not Given Sertraline HCl (Zoloft) 25 mg PO HS [facility] Last Admin: 10/03/16 23:28 Dose: 25 mg Sevelamer HCl (Renagel) 800 mg PO TID [facility] Last Admin: 10/03/16 17:10 Dose: 800 mg Zinc Sulfate (Zinc Sulfate 220 Mg Cap) 220 mg PO DAILY [facility] Last Admin: 10/03/16 12:24 Dose: Not Given - Labs Labs: 10/04/16 05:30 10/04/16 05:46 PT 14.2 Seconds (9.9-11.8) H 10/04/16 05:30 INR 1.31 (0.93-1.08) H 10/04/16 05:30 APTT 34.9 Seconds (23.7-30.8) H 10/04/16 05:30
[2016-10-04] MEDS ORDERED: Lidocaine 1% Inj (20ml) ONE (09:13)
[2016-10-04] MEDS ORDERED: Etomidate 20 mg/10ml Inj IV ONE (09:13)
[2016-10-04] MEDS ORDERED: Glycopyrrolate 0.2 mg/ml (2ml vial) ONE (09:14)
[2016-10-04] MEDS ORDERED: Neostigmine Methylsulfate 3mg/3ml Syringe IV ONE (10:12)
[2016-10-04] MEDS ORDERED: Morphine 2 mg/ml ISec IVP PRN (10:20)
[2016-10-04] MEDS: Insulin Detemir 100 units/ml Vial (Levemir) SC SCH ×2 (10:40→17:31)
[2016-10-04] MEDS ORDERED: Morphine 2 mg/ml ISec ONE (11:03)
[2016-10-04] MEDS ORDERED: Morphine 2 mg/ml ISec IVP ONE ×3 (11:06)
[2016-10-04] MEDS ORDERED: Labetalol 5 mg/ml Inj 20ML IV ONE ×2 (11:47→11:54)
[2016-10-04] MEDS ORDERED: Labetalol 5 mg/ml Inj 20ML ONE (11:50)
--- NOTE | 2016-10-04 18:58 | CP.PCM.PN ---
Addendum entered and electronically signed by Evan Contreras DO 10/06/16 14:54: Patient was seen and examined and case was discussed at length with Dr. Huggins. Patient is high risk for medium to high risk procedure, medically optimized at this time. Discussed with consultants and attending physician. Evan Contreras D.O. PGY-2 Original Note: <VONDA HUGGINS - Last Filed: 10/04/16 19:28> Subjective - Date & Time of Evaluation Date of Evaluation: 10/04/16 Time of Evaluation: 06:45 - Subjective Subjective: Vonda Huggins D.O. PGY1 - Internal Medicine Progress Note - Dedtim/Harish Service Patient seen and examined at beside, on the way to OR. She recieved FFP overnight, otherwise no acute events. Patient is still complaining of severe pain in her right leg stump and right wrist. She denies any CP, SOB, focal weakness, confusion, memory loss, vision changes. She is scheduled for the OR today for ORIF right femur. Objective - Vital Signs/Intake and Output Vital Signs (last 24 hours): Temp Pulse Resp BP Pulse Ox 99.1 F 66 18 151/56 H 96 10/04/16 18:00 10/04/16 18:00 10/04/16 18:00 10/04/16 18:00 10/04/16 12:31 Intake and Output: 10/04/16 10/04/16 06:59 18:59 Intake Total 0 0 Balance 0 0 - Medications Medications: Current Medications Albuterol/Ipratropium (Duoneb 3 Mg/0.5 Mg (3 Ml) Ud) 3 ml IH Q4H PRN PRN Reason: Shortness of Breath Last Admin: 10/03/16 07:50 Dose: 3 ml Alprazolam (Xanax) 0.5 mg PO TID PRN PRN Reason: Anxiety Amiodarone HCl (Cordarone) 200 mg PO DAILY [facility] Last Admin: 10/04/16 14:19 Dose: 200 mg Amlodipine Besylate (Norvasc) 10 mg PO DAILY [facility] Last Admin: 10/04/16 14:17 Dose: 10 mg Aspirin (Ecotrin) 81 mg PO DAILY [facility] Last Admin: 10/04/16 14:20 Dose: 81 mg Atorvastatin Calcium (Lipitor) 80 mg PO DIN [facility] Last Admin: 10/04/16 17:19 Dose: 80 mg Carbidopa/Levodopa (Sinemet 10/100) 1 tab PO TID [facility] Last Admin: 10/04/16 17:19 Dose: 1 tab Carvedilol (Coreg) 6.25 mg PO Q12 [facility] Last Admin: 10/04/16 14:20 Dose: 6.25 mg Clonidine HCl (Catapres) 0.3 mg PO Q8 [facility] Last Admin: 10/04/16 14:18 Dose: 0.3 mg Escitalopram Oxalate (Lexapro) 10 mg PO DAILY [facility] Last Admin: 10/04/16 10:40 Dose: Not Given Gabapentin (Neurontin) 100 mg PO BID [facility] PRN Reason: Protocol Last Admin: 10/04/16 17:18 Dose: 100 mg Hydralazine HCl (Apresoline) 100 mg PO Q8H PRN PRN Reason: Systolic Blood Pressure Last Admin: 10/04/16 05:53 Dose: 100 mg Hydromorphone HCl (Dilaudid) 1.5 mg IVP Q4H PRN PRN Reason: Pain, severe (8-10) Last Admin: 10/04/16 14:29 Dose: 1.5 mg Heparin Sodium/Dextrose (Heparin 25,000 Units/250ml In D5w) 25,000 units in 250 mls @ 8.399 mls/hr IV .Q24H PRN; Protocol; 12 UNITS/KG/HR PRN Reason: ADJUST RATE PER PROTOCOL Insulin Detemir (Levemir) 6 unit SC BID [facility] Last Admin: 10/04/16 17:31 Dose: 6 unit Insulin Human Lispro (Humalog High) 0 units SC ACHS [facility] PRN Reason: Protocol Last Admin: 10/04/16 17:20 Dose: 1 units Lisinopril (Zestril) 80 mg PO DAILY [facility] Last Admin: 10/04/16 14:18 Dose: 80 mg Morphine Sulfate (Morphine) 2 mg IVP Q15M PRN PRN Reason: Pain, moderate (4-7) Ondansetron HCl (Zofran Inj) 4 mg IVP ONCE PRN PRN Reason: Nausea/Vomiting Oxycodone/Acetaminophen (Percocet 5/325 Mg Tab) 1 tab PO Q4H PRN PRN Reason: Pain, moderate (4-7) Stop: 10/05/16 13:46 Last Admin: 10/02/16 21:43 Dose: 1 tab Pantoprazole Sodium (Protonix Inj) 40 mg IVP DAILY [facility] Last Admin: 10/04/16 14:14 Dose: 40 mg Primidone (Mysoline) 50 mg PO DAILY [facility] Last Admin: 10/04/16 14:21 Dose: 50 mg Sertraline HCl (Zoloft) 25 mg PO HS [facility] Last Admin: 10/03/16 23:28 Dose: 25 mg Sevelamer HCl (Renagel) 800 mg PO TID [facility] Last Admin: 10/04/16 17:19 Dose: 800 mg Zinc Sulfate (Zinc Sulfate 220 Mg Cap) 220 mg PO DAILY [facility] Last Admin: 10/04/16 14:16 Dose: 220 mg - Labs Labs: 10/04/16 05:30 10/04/16 05:46 PT 14.2 Seconds (9.9-11.8) H 10/04/16 05:30 INR 1.31 (0.93-1.08) H 10/04/16 05:30 APTT 34.9 Seconds (23.7-30.8) H 10/04/16 05:30 - Constitutional Appears: Non-toxic, Chronically Ill - Head Exam Head Exam: NORMOCEPHALIC Additional comments: Abrasion over right brow, healing - Eye Exam Eye Exam: EOMI, Normal appearance - ENT Exam ENT Exam: Mucous Membranes Moist - Neck Exam Neck Exam: Normal Inspection - Respiratory Exam Respiratory Exam: Clear to Ausculation Bilateral. absent: Rales, Rhonchi, Wheezes - Cardiovascular Exam Cardiovascular Exam: RRR, +S1, +S2 - GI/Abdominal Exam GI & Abdominal Exam: Soft, Normal Bowel Sounds. absent: Tenderness - Extremities Exam Additional comments: Right BKA, splinted and wrapped, extremely tender. Left foot 1.5cm ulcer with necrotic base, black eschar, and keratotic rim, surrounding skin normal, no erythema or warmth. - Neurological Exam Neurological Exam: Alert, Awake, Oriented x3 - Psychiatric Exam Psychiatric exam: Anxious (patient was headed to surgery), Normal Affect - Skin Additional comments: See ulcer described in "Extremities". Abrasion over right brow, healing. Otherwise normal. Assessment and Plan - Assessment and Plan (Free Text) Assessment: 66 yo F with a PMH of Antiphospholipid syndrome, ESRD on Dialysis T/R/Sa, CAD/ CABG, IDDM, Depression, Seizure Disorder, GERD, CHF Systolic and Diastolic Dysfunction, Parkinsons Disease, past DVTs, s/p R BKA, s/p CABG who initially presented complaining of a fall. After the fall, daughter says that patient was confused, said strange things, but quickly regained orientation. XR on admission showed right femur fracture, scheduled for OR this AM. She is also being treated for diabetic foot ulcer. Plan: 1.) Trauma s/p Fall, 2/2 possible syncopal event VS loss of balance - ECHO significant for mild concentric LVH, moderately impaired systolic func , RV pressure overload, severe tricuspid regurg, and mod-sev pulmonary HTN. - Carotid U/S significant for 60-79% proximal left ICA stenosis and 40-59% proximal right ICA stenosis - B/L LE duplex significant for right SFA 50-99% occluded - Consult neurology (Angelica), appreciate all recs - Cardio consulted (Elieser), appreciate all recs. - Will monitor very closely postoperatively. - TSH slightly elevated, likely as acute phase reaction - Right knee XR significant for fractured distal femur - Ortho consulted ([facility]), appreciate all recs - Scheduled for OR today despite multiple medical comorbidities; this is a high risk patient going for moderate risk procedure, will medically optimize - Hydromorphone PRN - Head wound culture positive for E. coli and gram positive cocci 2. Antiphospholipid syndrome - At home, anticoagulated with warfarin, currently holding pending surgery today, and yesterday VitK and FFP were administered, last INR was 1.3 - Consult Heme/Onc (Tasia), appreciate all recs - Ortho ([facility]) requested a hold on all anticoagulants for 24 hours after the surgery. - Will start Heparin IV drip 12u/hr, no bolus at 9 AM tomorrow, discussed with ortho, nephro, and heme 3. ESRD on Dialysis - Continue Sevelamer - Consult nephro (Kim), appreciate all recs; prior to admission, T/R/Sa Dialysis - Dr. Alvarez recommended use of heparin IV drip without bolus, over lovenox , for anticoagulation 4. H/O CAD, CHF, HTN - Continue amiodarone, amlodipine, ASA 81, Atorvastatin, Carvedilol, Clonidine, Hydralazine, lisinopril 5. IDDM - Increase levimir to 6u BID - Continue lispro sliding scale to high dose protocol 6. LLE Ankle Ulcer - Wound Culture positive for pseudomonas - Podiatry consulted, appreciate all recs - Start Cefepime 1gm Q24, after HD at 1200 tomorrow (HD dosing) 7. Parkinsons - Continue Carbidopa/Levodopa 8. Seizure Disorder - Continue Gabapentin, Primidone 9. Depression, Anxiety - Continue Escitalopram, Alprazolam, Sertraline 10. GERD - Continue Pantoprazole 12. H/O DVTs - ASA 81, no heparin at this time Patient was reviewed and discussed with senior resident Dr. Contreras PGY2 and attending Dr. Moreira <Alexey Morton - Last Filed: 10/21/16 16:53> Objective - Vital Signs/Intake and Output Vital Signs (last 24 hours): Temp Pulse Resp BP Pulse Ox 99.1 F 73 16 122/65 95 10/10/16 16:30 10/10/16 16:30 10/10/16 16:30 10/10/16 16:30 10/10/16 16:30 - Labs Labs: 10/10/16 08:00 10/10/16 08:00 PT 35.5 Seconds (9.9-11.8) H* 10/10/16 08:00 INR 3.29 (0.93-1.08) H 10/10/16 08:00 APTT 45.3 Seconds (23.7-30.8) H 10/10/16 08:00 Attending/Attestation - Attestation I have personally seen and examined this patient.: Yes I have fully participated in the care of the patient.: Yes I have reviewed all pertinent clinical information, including history, physical exam and plan: Yes Notes (Text): 10/21/16 16:53 Medical record note made by the resident after discussion with my direction and input after the patient was personally seen and examined by me. I have reviewed the chart and agree that the record accurately reflects by personal performance of the history, physical exam, data review, and medical decision-making, in the course for the patient. I have also personally directed the plan of care.
[2016-10-04] MEDS ORDERED: Cefepime 1gm in NS 100ml 1 GM/100 ML BAG IVPB STA (19:09)
[2016-10-05] MEDS: Acetaminophen 650mg/20.3ml solution UD PO PRN (06:40)
[2016-10-05 07:26] LABS: BASO # 0.03 K/mm3 (0.0-2.0); BASO % 0.3 % (0.0-3.0); EOS # 0.1 (0.0-0.7); EOS % 0.7 % (1.5-5.0); GRAN # 8.61 (1.4-6.5); GRAN % 82.6 % (50.0-68.0); HEMOGLOBIN 9.3 gm/dL (12.0-16.0); LYMPH # 0.7 (1.2-3.4); LYMPH % 6.6 % (22.0-35.0); MEAN CELL VOLUME 87.2 fL (80.0-105.0); MEAN CORPUSCULAR HEMOGLOBIN 27.1 pg (25.0-35.0); MEAN CORPUSCULAR HGB CONC 31.1 g/dl (31.0-37.0); MEAN PLATELET VOLUME 10.5 fl (7.0-11.0); MONO % 9.8 % (1.0-6.0); PLATELET COUNT 161 10^3/uL (120.0-450.0); RBC 3.43 10^6/uL (3.5-6.1); RED CELL DISTRIBUTION WIDTH 17.4 % (11.5-14.5); WHITE BLOOD COUNT 10.4 10^3/ul (4.5-11.0)
[2016-10-05 07:40] LABS: ALB/GLOB RATIO 1.1 (1.1-1.8); ALBUMIN 3.5 g/dL (3.0-4.8); CALCIUM 9.3 mg/dL (8.4-10.5)
[2016-10-05] MEDS: Insulin Lispro (HUMAlog) HIGH Coverage SC SCH ×4 (07:57→22:10)
--- NOTE | 2016-10-05 08:20 | CP.PCM.PN ---
Subjective - Date & Time of Evaluation Date of Evaluation: 10/05/16 Time of Evaluation: 08:10 - Subjective Subjective: Pt confused. Not able to give appropriate answers to questions. Objective - Vital Signs/Intake and Output Vital Signs (last 24 hours): Temp Pulse Resp BP Pulse Ox 100.9 F H 73 18 173/64 H 94 L 10/05/16 06:40 10/05/16 06:01 10/05/16 06:00 10/05/16 06:01 10/05/16 06:00 Intake and Output: 10/05/16 10/05/16 06:59 18:59 Intake Total 300 Balance 300 - Medications Medications: Current Medications Acetaminophen (Tylenol 650mg/20.3ml Solution Ud) 650 mg PO Q6H PRN PRN Reason: Temperature Last Admin: 10/05/16 06:40 Dose: 650 mg Albuterol/Ipratropium (Duoneb 3 Mg/0.5 Mg (3 Ml) Ud) 3 ml IH Q4H PRN PRN Reason: Shortness of Breath Last Admin: 10/03/16 07:50 Dose: 3 ml Alprazolam (Xanax) 0.5 mg PO TID PRN PRN Reason: Anxiety Amiodarone HCl (Cordarone) 200 mg PO DAILY [facility] Last Admin: 10/04/16 14:19 Dose: 200 mg Amlodipine Besylate (Norvasc) 10 mg PO DAILY [facility] Last Admin: 10/04/16 14:17 Dose: 10 mg Aspirin (Ecotrin) 81 mg PO DAILY [facility] Last Admin: 10/04/16 14:20 Dose: 81 mg Atorvastatin Calcium (Lipitor) 80 mg PO DIN [facility] Last Admin: 10/04/16 17:19 Dose: 80 mg Carbidopa/Levodopa (Sinemet 10/100) 1 tab PO TID [facility] Last Admin: 10/04/16 17:19 Dose: 1 tab Carvedilol (Coreg) 6.25 mg PO Q12 [facility] Last Admin: 10/04/16 21:48 Dose: 6.25 mg Clonidine HCl (Catapres) 0.3 mg PO Q8 [facility] Last Admin: 10/05/16 06:01 Dose: 0.3 mg Escitalopram Oxalate (Lexapro) 10 mg PO DAILY [facility] Last Admin: 10/04/16 10:40 Dose: Not Given Gabapentin (Neurontin) 100 mg PO BID [facility] PRN Reason: Protocol Last Admin: 10/04/16 17:18 Dose: 100 mg Heparin Sodium (Porcine) (Heparin) 5,000 units SC Q8 [facility] PRN Reason: Protocol Hydralazine HCl (Apresoline) 100 mg PO Q8H PRN PRN Reason: Systolic Blood Pressure Last Admin: 10/05/16 02:02 Dose: 100 mg Hydromorphone HCl (Dilaudid) 1.5 mg IVP Q4H PRN PRN Reason: Pain, severe (8-10) Last Admin: 10/04/16 21:46 Dose: 1.5 mg Heparin Sodium/Dextrose (Heparin 25,000 Units/250ml In D5w) 25,000 units in 250 mls @ 8.399 mls/hr IV .Q24H PRN; Protocol; 12 UNITS/KG/HR PRN Reason: ADJUST RATE PER PROTOCOL Cefepime HCl (Maxipime 1gm) 1 gm in 100 mls @ 200 mls/hr IVPB DAILY [facility] Insulin Detemir (Levemir) 6 unit SC BID [facility] Last Admin: 10/04/16 17:31 Dose: 6 unit Insulin Human Lispro (Humalog High) 0 units SC ACHS [facility] PRN Reason: Protocol Last Admin: 10/05/16 07:57 Dose: Not Given Lisinopril (Zestril) 80 mg PO DAILY [facility] Last Admin: 10/04/16 14:18 Dose: 80 mg Morphine Sulfate (Morphine) 2 mg IVP Q15M PRN PRN Reason: Pain, moderate (4-7) Ondansetron HCl (Zofran Inj) 4 mg IVP ONCE PRN PRN Reason: Nausea/Vomiting Oxycodone/Acetaminophen (Percocet 5/325 Mg Tab) 1 tab PO Q4H PRN PRN Reason: Pain, moderate (4-7) Stop: 10/05/16 13:46 Last Admin: 10/02/16 21:43 Dose: 1 tab Pantoprazole Sodium (Protonix Inj) 40 mg IVP DAILY [facility] Last Admin: 10/04/16 14:14 Dose: 40 mg Primidone (Mysoline) 50 mg PO DAILY [facility] Last Admin: 10/04/16 14:21 Dose: 50 mg Sertraline HCl (Zoloft) 25 mg PO [facility] Last Admin: 10/04/16 21:48 Dose: 25 mg Sevelamer HCl (Renagel) 800 mg PO TID [facility] Last Admin: 10/04/16 17:19 Dose: 800 mg Zinc Sulfate (Zinc Sulfate 220 Mg Cap) 220 mg PO DAILY [facility] Last Admin: 10/04/16 14:16 Dose: 220 mg - Labs Labs: 10/05/16 07:20 10/05/16 07:22 PT 14.2 Seconds (9.9-11.8) H 10/04/16 05:30 INR 1.31 (0.93-1.08) H 10/04/16 05:30 APTT 34.9 Seconds (23.7-30.8) H 10/04/16 05:30 - Constitutional Appears: Well - Head Exam Head Exam: NORMAL INSPECTION - Eye Exam Eye Exam: Normal appearance - ENT Exam ENT Exam: Mucous Membranes Moist - Neck Exam Neck Exam: Normal Inspection - Respiratory Exam Respiratory Exam: NORMAL BREATHING PATTERN. absent: Rales, Rhonchi - Cardiovascular Exam Cardiovascular Exam: REGULAR RHYTHM, RRR, +S1, +S2 - GI/Abdominal Exam GI & Abdominal Exam: Normal Bowel Sounds. absent: Diminished Bowel Sounds, Hyperactive Bowel Sounds, Hypoactive Bowel Sounds - Extremities Exam Extremities Exam: Joint Swelling (R leg wrapped) - Skin Skin Exam: Dry, Intact, Normal Color, Warm Assessment and Plan - Assessment and Plan (Free Text) Assessment: 1.) Fall 2.) Fraility 3.) ESRD on Dialysis 4.) CAD s/p CABG 5.) DM-2 6.) PAD 7.) Parkinsons 8.) GERD 9.) Depression, Anxiety 10.) Antiphospholipid syndrome 11.) DVT 12) HTN 13) Secondary hyperparathyroidism 14) Chronic Anemia 15) R BKA 16) L femoral bypass 17) R Femur fracture s/p surger Plan: Pt had surgery yesterday and is swollen today. Will try to take more fluid out on HD. On HTN meds, continue meds. Renal diet. Pt is also confused today. Delerium post op. On Lipitor for dyslipidemia. She will be placed on Heparin today. Will delay until after HD to start Heparin. She will get some heparin on HD. Spoke to nurse.
--- NOTE | 2016-10-05 08:37 | CP.PCM.PN ---
Subjective - Date & Time of Evaluation Date of Evaluation: 10/05/16 Time of Evaluation: 08:10 - Subjective Subjective: Pt seen lying awake in bed post op day 1 after hip fx repair, in NAD Objective - Vital Signs/Intake and Output Vital Signs (last 24 hours): Temp Pulse Resp BP Pulse Ox 100.9 F H 73 18 173/64 H 94 L 10/05/16 06:40 10/05/16 06:01 10/05/16 06:00 10/05/16 06:01 10/05/16 06:00 Intake and Output: 10/05/16 10/05/16 06:59 18:59 Intake Total 300 Balance 300 - Medications Medications: Current Medications Acetaminophen (Tylenol 650mg/20.3ml Solution Ud) 650 mg PO Q6H PRN PRN Reason: Temperature Last Admin: 10/05/16 06:40 Dose: 650 mg Albuterol/Ipratropium (Duoneb 3 Mg/0.5 Mg (3 Ml) Ud) 3 ml IH Q4H PRN PRN Reason: Shortness of Breath Last Admin: 10/03/16 07:50 Dose: 3 ml Alprazolam (Xanax) 0.5 mg PO TID PRN PRN Reason: Anxiety Amiodarone HCl (Cordarone) 200 mg PO DAILY [facility] Last Admin: 10/04/16 14:19 Dose: 200 mg Amlodipine Besylate (Norvasc) 10 mg PO DAILY [facility] Last Admin: 10/04/16 14:17 Dose: 10 mg Aspirin (Ecotrin) 81 mg PO DAILY [facility] Last Admin: 10/04/16 14:20 Dose: 81 mg Atorvastatin Calcium (Lipitor) 80 mg PO DIN [facility] Last Admin: 10/04/16 17:19 Dose: 80 mg Carbidopa/Levodopa (Sinemet 10/100) 1 tab PO TID [facility] Last Admin: 10/04/16 17:19 Dose: 1 tab Carvedilol (Coreg) 6.25 mg PO Q12 [facility] Last Admin: 10/04/16 21:48 Dose: 6.25 mg Clonidine HCl (Catapres) 0.3 mg PO Q8 [facility] Last Admin: 10/05/16 06:01 Dose: 0.3 mg Escitalopram Oxalate (Lexapro) 10 mg PO DAILY [facility] Last Admin: 10/04/16 10:40 Dose: Not Given Gabapentin (Neurontin) 100 mg PO BID [facility] PRN Reason: Protocol Last Admin: 10/04/16 17:18 Dose: 100 mg Heparin Sodium (Porcine) (Heparin) 5,000 units SC Q8 [facility] PRN Reason: Protocol Last Admin: 10/05/16 08:22 Dose: 5,000 units Hydralazine HCl (Apresoline) 100 mg PO Q8H PRN PRN Reason: Systolic Blood Pressure Last Admin: 10/05/16 02:02 Dose: 100 mg Hydromorphone HCl (Dilaudid) 1.5 mg IVP Q4H PRN PRN Reason: Pain, severe (8-10) Last Admin: 10/04/16 21:46 Dose: 1.5 mg Heparin Sodium/Dextrose (Heparin 25,000 Units/250ml In D5w) 25,000 units in 250 mls @ 8.399 mls/hr IV .Q24H PRN; Protocol; 12 UNITS/KG/HR PRN Reason: ADJUST RATE PER PROTOCOL Cefepime HCl (Maxipime 1gm) 1 gm in 100 mls @ 200 mls/hr IVPB DAILY [facility] Insulin Detemir (Levemir) 6 unit SC BID [facility] Last Admin: 10/04/16 17:31 Dose: 6 unit Insulin Human Lispro (Humalog High) 0 units SC ACHS [facility] PRN Reason: Protocol Last Admin: 10/05/16 07:57 Dose: Not Given Lisinopril (Zestril) 80 mg PO DAILY [facility] Last Admin: 10/04/16 14:18 Dose: 80 mg Morphine Sulfate (Morphine) 2 mg IVP Q15M PRN PRN Reason: Pain, moderate (4-7) Ondansetron HCl (Zofran Inj) 4 mg IVP ONCE PRN PRN Reason: Nausea/Vomiting Oxycodone/Acetaminophen (Percocet 5/325 Mg Tab) 1 tab PO Q4H PRN PRN Reason: Pain, moderate (4-7) Stop: 10/05/16 13:46 Last Admin: 10/02/16 21:43 Dose: 1 tab Pantoprazole Sodium (Protonix Inj) 40 mg IVP DAILY [facility] Last Admin: 10/04/16 14:14 Dose: 40 mg Primidone (Mysoline) 50 mg PO DAILY [facility] Last Admin: 10/04/16 14:21 Dose: 50 mg Sertraline HCl (Zoloft) 25 mg PO HS [facility] Last Admin: 10/04/16 21:48 Dose: 25 mg Sevelamer HCl (Renagel) 800 mg PO TID [facility] Last Admin: 10/04/16 17:19 Dose: 800 mg Zinc Sulfate (Zinc Sulfate 220 Mg Cap) 220 mg PO DAILY [facility] Last Admin: 10/04/16 14:16 Dose: 220 mg - Labs Labs: 10/05/16 07:20 10/05/16 07:22 PT 14.2 Seconds (9.9-11.8) H 10/04/16 05:30 INR 1.31 (0.93-1.08) H 10/04/16 05:30 APTT 34.9 Seconds (23.7-30.8) H 10/04/16 05:30 - Constitutional Appears: No Acute Distress, Confused - Head Exam Head Exam: NORMOCEPHALIC - Eye Exam Eye Exam: Normal appearance - ENT Exam ENT Exam: Mucous Membranes Moist - Neck Exam Neck Exam: Normal Inspection - Respiratory Exam Respiratory Exam: NORMAL BREATHING PATTERN - Cardiovascular Exam Cardiovascular Exam: REGULAR RHYTHM - GI/Abdominal Exam GI & Abdominal Exam: Soft, Normal Bowel Sounds - Extremities Exam Additional comments: amputation left bka, right +1edema foot s/p surgical repair w dressing on - Psychiatric Exam Psychiatric exam: Flat Affect Assessment and Plan (1) Fracture, hip Status: Acute (2) Anticoagulant long-term use Status: Acute (3) Renal failure Status: Acute (4) Diabetes Status: Chronic (5) ESRD on dialysis Assessment & Plan: Begin heparin as per Sotero Pang/ Rishabh, monitor cliniccally, check labs , restart Coumadin when OK w Surgeon Status: Chronic
[2016-10-05] MEDS ORDERED: Heparin 25,000units in D5W 25,000 UNITS/250 ML BAG IV PRN (09:00)
[2016-10-05 09:09] LABS: INR 1.06 (0.93-1.08); PARTIAL THROMBOPLASTIN TIME 31.7 Seconds (23.7-30.8); PROTHROMBIN TIME 11.5 Seconds (9.9-11.8)
--- NOTE | 2016-10-05 09:29 | CP.PCM.PN ---
<Roverto Grant - Last Filed: 10/05/16 09:25> Subjective - Date & Time of Evaluation Date of Evaluation: 10/05/16 Time of Evaluation: 09:25 - Subjective Subjective: 66 year old female with PMHx including ESRD (on HD),CAD with stents, and CABG, right BKA, IDDM, antiphospholipid syndrome, DVT, Parkinson disease, depression, seizure disorders, GERD, CHF, and HTN was seen at bedside, with attending, Dr. Issa regarding left heel ulceration. Patient is 1 day s/p hip surgery. Patient denies any pain in her left foot. She states that she is here due to a fall she sustained three days ago. She denies any n/v/f/c/sob/cp. Objective - Vital Signs/Intake and Output Vital Signs (last 24 hours): Temp Pulse Resp BP Pulse Ox 100.9 F H 73 18 173/64 H 95 10/05/16 06:40 10/05/16 06:01 10/05/16 06:00 10/05/16 06:01 10/05/16 08:47 Intake and Output: 10/05/16 10/05/16 06:59 18:59 Intake Total 300 Balance 300 - Medications Medications: Current Medications Acetaminophen (Tylenol 650mg/20.3ml Solution Ud) 650 mg PO Q6H PRN PRN Reason: Temperature Last Admin: 10/05/16 06:40 Dose: 650 mg Albuterol/Ipratropium (Duoneb 3 Mg/0.5 Mg (3 Ml) Ud) 3 ml IH Q4H PRN PRN Reason: Shortness of Breath Last Admin: 10/03/16 07:50 Dose: 3 ml Alprazolam (Xanax) 0.5 mg PO TID PRN PRN Reason: Anxiety Amiodarone HCl (Cordarone) 200 mg PO DAILY [facility] Last Admin: 10/04/16 14:19 Dose: 200 mg Amlodipine Besylate (Norvasc) 10 mg PO DAILY [facility] Last Admin: 10/04/16 14:17 Dose: 10 mg Aspirin (Ecotrin) 81 mg PO DAILY [facility] Last Admin: 10/04/16 14:20 Dose: 81 mg Atorvastatin Calcium (Lipitor) 80 mg PO DIN [facility] Last Admin: 10/04/16 17:19 Dose: 80 mg Carbidopa/Levodopa (Sinemet 10/100) 1 tab PO TID [facility] Last Admin: 10/04/16 17:19 Dose: 1 tab Carvedilol (Coreg) 6.25 mg PO Q12 [facility] Last Admin: 10/04/16 21:48 Dose: 6.25 mg Clonidine HCl (Catapres) 0.3 mg PO Q8 [facility] Last Admin: 10/05/16 06:01 Dose: 0.3 mg Escitalopram Oxalate (Lexapro) 10 mg PO DAILY [facility] Last Admin: 10/04/16 10:40 Dose: Not Given Gabapentin (Neurontin) 100 mg PO BID [facility] PRN Reason: Protocol Last Admin: 10/04/16 17:18 Dose: 100 mg Heparin Sodium (Porcine) (Heparin) 5,000 units SC Q8 [facility] PRN Reason: Protocol Last Admin: 10/05/16 08:22 Dose: 5,000 units Hydralazine HCl (Apresoline) 100 mg PO Q8H PRN PRN Reason: Systolic Blood Pressure Last Admin: 10/05/16 02:02 Dose: 100 mg Hydromorphone HCl (Dilaudid) 1.5 mg IVP Q4H PRN PRN Reason: Pain, severe (8-10) Last Admin: 10/04/16 21:46 Dose: 1.5 mg Heparin Sodium/Dextrose (Heparin 25,000 Units/250ml In D5w) 25,000 units in 250 mls @ 8.399 mls/hr IV .Q24H PRN; Protocol; 12 UNITS/KG/HR PRN Reason: ADJUST RATE PER PROTOCOL Cefepime HCl (Maxipime 1gm) 1 gm in 100 mls @ 200 mls/hr IVPB DAILY [facility] Insulin Detemir (Levemir) 6 unit SC BID [facility] Last Admin: 10/04/16 17:31 Dose: 6 unit Insulin Human Lispro (Humalog High) 0 units SC ACHS [facility] PRN Reason: Protocol Last Admin: 10/05/16 07:57 Dose: Not Given Lisinopril (Zestril) 80 mg PO DAILY [facility] Last Admin: 10/04/16 14:18 Dose: 80 mg Morphine Sulfate (Morphine) 2 mg IVP Q15M PRN PRN Reason: Pain, moderate (4-7) Ondansetron HCl (Zofran Inj) 4 mg IVP ONCE PRN PRN Reason: Nausea/Vomiting Oxycodone/Acetaminophen (Percocet 5/325 Mg Tab) 1 tab PO Q4H PRN PRN Reason: Pain, moderate (4-7) Stop: 10/05/16 13:46 Last Admin: 10/02/16 21:43 Dose: 1 tab Pantoprazole Sodium (Protonix Inj) 40 mg IVP DAILY [facility] Last Admin: 10/04/16 14:14 Dose: 40 mg Primidone (Mysoline) 50 mg PO DAILY [facility] Last Admin: 10/04/16 14:21 Dose: 50 mg Sertraline HCl (Zoloft) 25 mg PO HS [facility] Last Admin: 10/04/16 21:48 Dose: 25 mg Sevelamer HCl (Renagel) 800 mg PO TID [facility] Last Admin: 10/04/16 17:19 Dose: 800 mg Zinc Sulfate (Zinc Sulfate 220 Mg Cap) 220 mg PO DAILY [facility] Last Admin: 10/04/16 14:16 Dose: 220 mg - Labs Labs: 10/05/16 07:20 10/05/16 07:22 PT 11.5 Seconds (9.9-11.8) 10/05/16 07:20 INR 1.06 (0.93-1.08) 10/05/16 07:20 APTT 31.7 Seconds (23.7-30.8) H 10/05/16 07:20 - Constitutional Appears: Well, Non-toxic, No Acute Distress - Extremities Exam Additional comments: Lower extremity focused exam: Right: Below knee amputation noted Left: Vasc: Non-palpable DP and PT pulses, CFT < 4 sec to all digits, TG wnl, no edema noted Neuro: Gross sensation diminished Derm: Superficial ulceration noted to posterior heel measuring approximately 0.6 cm by 0.7 cm. No drainage, no purulence, no malodor, no ascending cellulitis , no fluctuance, no probe to bone or other signs of infection noted Ortho: Mild pain on palpation to heel - Neurological Exam Neurological Exam: Alert, Oriented x3 - Psychiatric Exam Psychiatric exam: Normal Affect, Normal Mood Assessment and Plan - Assessment and Plan (Free Text) Assessment: 66 year old female with diabetic left heel ulceration Plan: Patient examined and evaluated with attending Dr. Issa Chart, labs and vitals reviewed: febrile at 100.9 F, WBC 10.4 up from 10.1 yesterday Left heel dressed with gauze padding and optifoam Multipodus boot reapplied to patients foot Patient to continue offloading the left heel while in bed Podiatry will continue to monitor while patient remains in house <Elmira Issa - Last Filed: 10/05/16 14:54> Objective - Vital Signs/Intake and Output Vital Signs (last 24 hours): Temp Pulse Resp BP Pulse Ox 100.9 F H 73 18 173/64 H 95 10/05/16 06:40 10/05/16 06:01 10/05/16 06:00 10/05/16 06:01 10/05/16 08:47 Intake and Output: 10/05/16 10/05/16 06:59 18:59 Intake Total 300 360 Balance 300 360 - Medications Medications: Current Medications Acetaminophen (Tylenol 650mg/20.3ml Solution Ud) 650 mg PO Q6H PRN PRN Reason: Temperature Last Admin: 10/05/16 06:40 Dose: 650 mg Albuterol/Ipratropium (Duoneb 3 Mg/0.5 Mg (3 Ml) Ud) 3 ml IH Q4H PRN PRN Reason: Shortness of Breath Last Admin: 10/03/16 07:50 Dose: 3 ml Alprazolam (Xanax) 0.5 mg PO TID PRN PRN Reason: Anxiety Amiodarone HCl (Cordarone) 200 mg PO DAILY [facility] Last Admin: 10/04/16 14:19 Dose: 200 mg Amlodipine Besylate (Norvasc) 10 mg PO DAILY [facility] Last Admin: 10/04/16 14:17 Dose: 10 mg Aspirin (Ecotrin) 81 mg PO DAILY [facility] Last Admin: 10/04/16 14:20 Dose: 81 mg Atorvastatin Calcium (Lipitor) 80 mg PO DIN [facility] Last Admin: 10/04/16 17:19 Dose: 80 mg Carbidopa/Levodopa (Sinemet 10/100) 1 tab PO TID [facility] Last Admin: 10/05/16 14:21 Dose: Not Given Carvedilol (Coreg) 6.25 mg PO Q12 [facility] Last Admin: 10/04/16 21:48 Dose: 6.25 mg Clonidine HCl (Catapres) 0.3 mg PO Q8 [facility] Last Admin: 10/05/16 06:01 Dose: 0.3 mg Escitalopram Oxalate (Lexapro) 10 mg PO DAILY [facility] Last Admin: 10/04/16 10:40 Dose: Not Given Gabapentin (Neurontin) 100 mg PO BID [facility] PRN Reason: Protocol Last Admin: 10/04/16 17:18 Dose: 100 mg Heparin Sodium (Porcine) (Heparin) 5,000 units SC Q8 [facility] PRN Reason: Protocol Last Admin: 10/05/16 08:22 Dose: 5,000 units Hydralazine HCl (Apresoline) 100 mg PO Q8H PRN PRN Reason: Systolic Blood Pressure Last Admin: 10/05/16 02:02 Dose: 100 mg Hydromorphone HCl (Dilaudid) 1.5 mg IVP Q4H PRN PRN Reason: Pain, severe (8-10) Last Admin: 10/05/16 10:09 Dose: 1.5 mg Heparin Sodium/Dextrose (Heparin 25,000 Units/250ml In D5w) 25,000 units in 250 mls @ 8.399 mls/hr IV .Q24H PRN; Protocol; 12 UNITS/KG/HR PRN Reason: ADJUST RATE PER PROTOCOL Cefepime HCl (Maxipime 1gm) 1 gm in 100 mls @ 200 mls/hr IVPB DAILY [facility] Insulin Detemir (Levemir) 6 unit SC BID [facility] Last Admin: 10/04/16 17:31 Dose: 6 unit Insulin Human Lispro (Humalog High) 0 units SC ACHS [facility] PRN Reason: Protocol Last Admin: 10/05/16 07:57 Dose: Not Given Lisinopril (Zestril) 80 mg PO DAILY [facility] Last Admin: 10/04/16 14:18 Dose: 80 mg Morphine Sulfate (Morphine) 2 mg IVP Q15M PRN PRN Reason: Pain, moderate (4-7) Ondansetron HCl (Zofran Inj) 4 mg IVP ONCE PRN PRN Reason: Nausea/Vomiting Pantoprazole Sodium (Protonix Inj) 40 mg IVP DAILY [facility] Last Admin: 10/04/16 14:14 Dose: 40 mg Primidone (Mysoline) 50 mg PO DAILY [facility] Last Admin: 10/04/16 14:21 Dose: 50 mg Sertraline HCl (Zoloft) [address] [facility] Last Admin: 10/04/16 21:48 Dose: 25 mg Sevelamer HCl (Renagel) 800 mg PO TID [facility] Last Admin: 10/05/16 14:21 Dose: Not Given Zinc Sulfate (Zinc Sulfate 220 Mg Cap) 220 mg PO DAILY [facility] Last Admin: 10/04/16 14:16 Dose: 220 mg - Labs Labs: 10/05/16 07:20 10/05/16 07:22 PT 11.5 Seconds (9.9-11.8) 10/05/16 07:20 INR 1.06 (0.93-1.08) 10/05/16 07:20 APTT 31.7 Seconds (23.7-30.8) H 10/05/16 07:20 Attending/Attestation - Attestation I have personally seen and examined this patient.: Yes I have fully participated in the care of the patient.: Yes I have reviewed all pertinent clinical information, including history, physical exam and plan: Yes
[2016-10-05] MEDS: HYDROmorphone 2 mg/ml ISec IVP PRN ×3 (10:09→22:48)
[2016-10-05] MEDS ORDERED: Cefepime (Maxipime) 1 g Inj IVPB SCH (12:00)
[2016-10-05] MEDS: Insulin Detemir 100 units/ml Vial (Levemir) SC SCH ×2 (14:36→17:58)
[2016-10-05] MEDS: Cefepime 1gm in NS 100ml 1 GM/100 ML BAG IVPB SCH (14:36)
--- NOTE | 2016-10-05 21:50 | CP.PCM.PN ---
<Mani Costa - Last Filed: 10/05/16 21:47> Subjective - Date & Time of Evaluation Date of Evaluation: 10/05/16 Time of Evaluation: 08:45 - Subjective Subjective: Internal Medicine Progress Note for Dr. Aguirre/Dr. Morton service Patient seen and examined at beside. Today is hospital day 5, POD #1. No acute events overnight. Patient very somnolent on exam this AM, opens eyes to verbal stimuli, but only gives a few one-word answers, then closes eyes again. Not following commands. States no to all ROS questions, but questionable reliability of answers. Post-op delirium? Objective - Vital Signs/Intake and Output Vital Signs (last 24 hours): Temp Pulse Resp BP Pulse Ox 98.8 F 68 18 158/63 H 95 10/05/16 16:59 10/05/16 16:59 10/05/16 16:59 10/05/16 16:59 10/05/16 08:47 Intake and Output: 10/05/16 10/06/16 18:59 06:59 Intake Total 1020 Output Total 0 Balance 1020 - Medications Medications: Current Medications Acetaminophen (Tylenol 650mg/20.3ml Solution Ud) 650 mg PO Q6H PRN PRN Reason: Temperature Last Admin: 10/05/16 06:40 Dose: 650 mg Albuterol/Ipratropium (Duoneb 3 Mg/0.5 Mg (3 Ml) Ud) 3 ml IH Q4H PRN PRN Reason: Shortness of Breath Last Admin: 10/03/16 07:50 Dose: 3 ml Alprazolam (Xanax) 0.5 mg PO TID PRN PRN Reason: Anxiety Amiodarone HCl (Cordarone) 200 mg PO DAILY [facility] Last Admin: 10/05/16 14:34 Dose: 200 mg Amlodipine Besylate (Norvasc) 10 mg PO DAILY [facility] Last Admin: 10/05/16 14:37 Dose: 10 mg Aspirin (Ecotrin) 81 mg PO DAILY [facility] Last Admin: 10/05/16 14:34 Dose: 81 mg Atorvastatin Calcium (Lipitor) 80 mg PO DIN [facility] Last Admin: 10/05/16 17:59 Dose: 80 mg Carbidopa/Levodopa (Sinemet 10/100) 1 tab PO TID [facility] Last Admin: 10/05/16 18:00 Dose: 1 tab Carvedilol (Coreg) 6.25 mg PO Q12 [facility] Last Admin: 10/05/16 14:34 Dose: 6.25 mg Clonidine HCl (Catapres) 0.3 mg PO Q8 [facility] Last Admin: 10/05/16 14:33 Dose: 0.3 mg Escitalopram Oxalate (Lexapro) 10 mg PO DAILY [facility] Last Admin: 10/05/16 14:36 Dose: 10 mg Gabapentin (Neurontin) 100 mg PO BID [facility] PRN Reason: Protocol Last Admin: 10/05/16 17:59 Dose: 100 mg Heparin Sodium (Porcine) (Heparin) 5,000 units SC Q8 [facility] PRN Reason: Protocol Last Admin: 10/05/16 14:34 Dose: 5,000 units Hydralazine HCl (Apresoline) 100 mg PO Q8H PRN PRN Reason: Systolic Blood Pressure Last Admin: 10/05/16 02:02 Dose: 100 mg Hydromorphone HCl (Dilaudid) 1.5 mg IVP Q4H PRN PRN Reason: Pain, severe (8-10) Last Admin: 10/05/16 15:07 Dose: 1.5 mg Heparin Sodium/Dextrose (Heparin 25,000 Units/250ml In D5w) 25,000 units in 250 mls @ 8.399 mls/hr IV .Q24H PRN; Protocol; 12 UNITS/KG/HR PRN Reason: ADJUST RATE PER PROTOCOL Cefepime HCl (Maxipime 1gm) 1 gm in 100 mls @ 200 mls/hr IVPB DAILY [facility] Last Admin: 10/05/16 14:36 Dose: 200 mls/hr Insulin Detemir (Levemir) 6 unit SC BID [facility] Last Admin: 10/05/16 17:58 Dose: 6 unit Insulin Human Lispro (Humalog High) 0 units SC ACHS [facility] PRN Reason: Protocol Last Admin: 10/05/16 17:59 Dose: 7 units Lisinopril (Zestril) 80 mg PO DAILY [facility] Last Admin: 10/05/16 14:40 Dose: 80 mg Morphine Sulfate (Morphine) 2 mg IVP Q15M PRN PRN Reason: Pain, moderate (4-7) Ondansetron HCl (Zofran Inj) 4 mg IVP ONCE PRN PRN Reason: Nausea/Vomiting Pantoprazole Sodium (Protonix Inj) 40 mg IVP DAILY [facility] Last Admin: 10/05/16 14:39 Dose: 40 mg Primidone (Mysoline) 50 mg PO DAILY [facility] Last Admin: 10/05/16 14:37 Dose: 50 mg Sertraline HCl (Zoloft) 25 mg PO HS [facility] Last Admin: 10/04/16 21:48 Dose: 25 mg Sevelamer HCl (Renagel) 800 mg PO TID [facility] Last Admin: 10/05/16 18:00 Dose: 800 mg Zinc Sulfate (Zinc Sulfate 220 Mg Cap) 220 mg PO DAILY [facility] Last Admin: 10/05/16 14:40 Dose: 220 mg - Labs Labs: 10/05/16 07:20 10/05/16 07:22 PT 11.5 Seconds (9.9-11.8) 10/05/16 07:20 INR 1.06 (0.93-1.08) 10/05/16 07:20 APTT 31.7 Seconds (23.7-30.8) H 10/05/16 07:20 - Additional Findings Additional findings: - Constitutional Appears: Non-toxic, No acute distress, Chronically Ill, Somnolent/Minimally responsive - Head Exam Head Exam: Healing abrasion over right brow, otherwise NC/AT - Eye Exam Eye Exam: Normal appearance, No scleral icterus, No conjunctival injection, Unable to assess EOMI as mostly keeping eyes closed and not following commands - ENT Exam ENT Exam: Mucous Membranes Moist - Neck Exam Neck Exam: Normal Inspection - Respiratory Exam Respiratory Exam: Clear to Ausculation Bilateral. absent: Rales, Rhonchi, Wheezes - Cardiovascular Exam Cardiovascular Exam: RRR, +S1, +S2 - GI/Abdominal Exam GI & Abdominal Exam: Soft, Normal Bowel Sounds. absent: Tenderness - Extremities Exam Right BKA, splinted and wrapped, patient attempts to move site away from palpation but otherwise not indicating tenderness to site. Left foot bandaged (at site of previously noted ulcer with necrotic base), no gross edema/erythema surrounding site, unable to assess tenderness as patient minimally responsive. - Neurological Exam Neurological Exam: Somnolent, briefly arousable but rapidly loses focus/ alertness and goes back to sleep, not following commands - Psychiatric Exam Psychiatric exam: Unable to assess due to minimally-responsive state, giving 1- 2 word answers, answering no to all ROS questions so unclear on reliability, possible post-op/hospital-associated delirium - Skin Except as indicated in Extremities and head exam, skin is dry/warm/intact Assessment and Plan - Assessment and Plan (Free Text) Assessment: This is a 66 yo F with PMH of Antiphospholipid syndrome, ESRD on Dialysis T/R/Sa, CAD/CABG, IDDM, Depression, Seizure Disorder, GERD, CHF Systolic and Diastolic Dysfunction, Parkinsons Disease, past DVTs, and s/p R BKA who initially presented complaining of a fall, and was found to have femur fracture. POD#1 for surgical repair. Pending HD and then Cefepime for diabetic ulcers. Plan: 1) Trauma s/p Fall, R-femur fracture - 2/2 possible syncopal event VS loss of balance - ECHO significant for mild concentric LVH, moderately impaired systolic func, RV pressure overload, severe tricuspid regurg, and mod-sev pulmonary HTN. - Carotid U/S significant for 60-79% proximal left ICA stenosis and 40-59% proximal right ICA stenosis - B/L LE duplex significant for right SFA 50-99% occluded - Consult neurology (Angelica), appreciate all recs - Cardio consulted (Elieser), appreciate all recs. - Will monitor very closely postoperatively. - TSH slightly elevated, likely as acute phase reaction - Right knee XR significant for fractured distal femur - Ortho consulted (Rishabh); POD #1 for surgical repair - Hydromorphone PRN - Head wound culture positive for E. coli and gram positive cocci 2) Antiphospholipid syndrome - At home, anticoagulated with warfarin, held for surgery; per Nephro will start on Heparin after HD - Consult Heme/Onc (Tasia), appreciate all recs - Ortho (Damienonaco) requested a hold on all anticoagulants for 24 hours after the surgery. - Will start Heparin IV drip 12u/hr, no bolus at 9 AM tomorrow, discussed with ortho, nephro, and heme 3) ESRD on Dialysis - Continue Sevelamer - Consult nephro (Kim), appreciate all recs; prior to admission, T/R/Sa Dialysis - Pending HD today 4) H/O CAD, CHF, HTN - Continue amiodarone, amlodipine, ASA 81, Atorvastatin, Carvedilol, Clonidine, Hydralazine, lisinopril 5) IDDM - levimir 6u BID - Continue lispro sliding scale to high dose protocol 6) LLE Ankle Ulcer - Wound Culture positive for pseudomonas - Podiatry consulted, appreciate all recs - Cefepime to begin after HD today 7) Parkinsons - Continue Carbidopa/Levodopa 8) Seizure Disorder - Continue Gabapentin, Primidone 9) Depression, Anxiety - Continue Escitalopram, Alprazolam, Sertraline 10) GERD - Continue Pantoprazole 11) H/O DVTs - ASA 81, no heparin at this time 12) AMS - Reports of some confusion after initial traumatic fall, but resolved - currently minimal responsive to verbal stimuli, some response to physical stimuli, responds to noxious stimuli - post-op/hospital associated delirium likely, also likely component from pain medications - continue to monitor, strict day-night cycle Dispo: Telemetry, POD #1 for surgical repair of R femur fracture, pending HD and starting Cefepime and Heparin drip FEN: Renal Diet Access: Peripheral IV, AV fistula for HD Consults: Nephro, Heme-onc, Podiatry, Ortho, Cardio, Neuro Ppx: Protonix covers GI, Heparin drip will cover for DVT when started Patient reviewed and discussed with attending, Dr. Morton. <Alexey Morton - Last Filed: 10/21/16 16:51> Objective - Vital Signs/Intake and Output Vital Signs (last 24 hours): Temp Pulse Resp BP Pulse Ox 99.1 F 73 16 122/65 95 10/10/16 16:30 10/10/16 16:30 10/10/16 16:30 10/10/16 16:30 10/10/16 16:30 - Labs Labs: 10/10/16 08:00 10/10/16 08:00 PT 35.5 Seconds (9.9-11.8) H* 10/10/16 08:00 INR 3.29 (0.93-1.08) H 10/10/16 08:00 APTT 45.3 Seconds (23.7-30.8) H 10/10/16 08:00 Attending/Attestation - Attestation I have personally seen and examined this patient.: Yes I have fully participated in the care of the patient.: Yes I have reviewed all pertinent clinical information, including history, physical exam and plan: Yes Notes (Text): 10/21/16 16:51 Medical record note made by the resident after discussion with my direction and input after the patient was personally seen and examined by me. I have reviewed the chart and agree that the record accurately reflects by personal performance of the history, physical exam, data review, and medical decision-making, in the course for the patient. I have also personally directed the plan of care.
[2016-10-06] MEDS: Insulin Lispro (HUMAlog) HIGH Coverage SC SCH ×4 (08:11→22:05)
[2016-10-06 08:22] LABS: BASO # 0.02 K/mm3 (0.0-2.0); BASO % 0.2 % (0.0-3.0); EOS # 0.1 (0.0-0.7); EOS % 0.8 % (1.5-5.0); GRAN # 8.36 (1.4-6.5); GRAN % 84.2 % (50.0-68.0); HEMOGLOBIN 8.8 gm/dL (12.0-16.0); LYMPH # 0.6 (1.2-3.4); MEAN CELL VOLUME 87.9 fL (80.0-105.0); MEAN CORPUSCULAR HEMOGLOBIN 27.2 pg (25.0-35.0); MEAN PLATELET VOLUME 10.8 fl (7.0-11.0); MONO # 0.9 (0.1-0.6); MONO % 8.8 % (1.0-6.0); PLATELET COUNT 217 10^3/uL (120.0-450.0); RBC 3.23 10^6/uL (3.5-6.1); RED CELL DISTRIBUTION WIDTH 17.4 % (11.5-14.5); WHITE BLOOD COUNT 9.9 10^3/ul (4.5-11.0)
[2016-10-06 08:31] LABS: INR 0.99 (0.93-1.08); PARTIAL THROMBOPLASTIN TIME 34.4 Seconds (23.7-30.8); PROTHROMBIN TIME 10.7 Seconds (9.9-11.8)
[2016-10-06 08:35] LABS: ALB/GLOB RATIO 1.1 (1.1-1.8); ALBUMIN 3.6 g/dL (3.0-4.8); CALCIUM 9.7 mg/dL (8.4-10.5)
[2016-10-06] MEDS: Insulin Detemir 100 units/ml Vial (Levemir) SC SCH ×2 (09:57→18:09)
[2016-10-06] MEDS: Cefepime 1gm in NS 100ml 1 GM/100 ML BAG IVPB SCH (09:57)
[2016-10-06] MEDS: HYDROmorphone 2 mg/ml ISec IVP PRN (12:46)
[2016-10-06] MEDS ORDERED: Morphine 2 mg/ml ISec IVP PRN (14:50)
--- NOTE | 2016-10-06 15:07 | CP.PCM.PN ---
<Evan Contreras - Last Filed: 10/06/16 14:56> Subjective - Date & Time of Evaluation Date of Evaluation: 10/06/16 Time of Evaluation: 07:25 - Subjective Subjective: Evan Contreras D.O. PGY-2, Internal Medicine, Dr. Aguirre/[facility], Progress Note 66 year old female with a PMH of antiphospholipid syndrome, ESRD on Dialysis TTS , CAD s/p CABG, IDDM, depression, seizure disorder, GERD, CHF with systolic and diastolic dysfunction, Parkinsons disease, history of DVTs, and s/p R BKA who initially presented after witnessed mechanical fall, and was found to have femur fracture POD#2 ORIF. Patient is slowly doing better, continues to be somewhat tired. Daughter at bedside, discussed case at length. Patient also seen with Dr. Keating earlier in the day. No complaints at this time other than post surgical pain well controlled on current regimen. Objective - Vital Signs/Intake and Output Vital Signs (last 24 hours): Temp Pulse Resp BP Pulse Ox 99.3 F 57 L 18 162/67 H 98 10/06/16 11:45 10/06/16 14:32 10/06/16 11:45 10/06/16 11:45 10/06/16 06:00 Intake and Output: 10/06/16 10/06/16 06:59 18:59 Intake Total 0 Output Total 0 Balance 0 - Medications Medications: Current Medications Acetaminophen (Tylenol 650mg/20.3ml Solution Ud) 650 mg PO Q6H PRN PRN Reason: Temperature Last Admin: 10/05/16 06:40 Dose: 650 mg Albuterol/Ipratropium (Duoneb 3 Mg/0.5 Mg (3 Ml) Ud) 3 ml IH Q4H PRN PRN Reason: Shortness of Breath Last Admin: 10/03/16 07:50 Dose: 3 ml Alprazolam (Xanax) 0.5 mg PO TID PRN PRN Reason: Anxiety Amiodarone HCl (Cordarone) 200 mg PO DAILY [facility] Last Admin: 10/06/16 09:56 Dose: 200 mg Amlodipine Besylate (Norvasc) 10 mg PO DAILY [facility] Last Admin: 10/06/16 10:00 Dose: 10 mg Aspirin (Ecotrin) 81 mg PO DAILY [facility] Last Admin: 10/06/16 09:57 Dose: 81 mg Atorvastatin Calcium (Lipitor) 80 mg PO DIN [facility] Last Admin: 10/05/16 17:59 Dose: 80 mg Carbidopa/Levodopa (Sinemet 10/100) 1 tab PO TID [facility] Last Admin: 10/06/16 13:56 Dose: 1 tab Carvedilol (Coreg) 6.25 mg PO Q12 [facility] Last Admin: 10/06/16 09:56 Dose: 6.25 mg Clonidine HCl (Catapres) 0.3 mg PO Q8 [facility] Last Admin: 10/06/16 13:55 Dose: 0.3 mg Docusate Sodium (Colace) 100 mg PO DAILY [facility] Escitalopram Oxalate (Lexapro) 10 mg PO DAILY [facility] Last Admin: 10/06/16 09:57 Dose: 10 mg Gabapentin (Neurontin) 100 mg PO BID [facility] PRN Reason: Protocol Last Admin: 10/06/16 09:59 Dose: 100 mg Hydralazine HCl (Apresoline) 100 mg PO Q8H PRN PRN Reason: Systolic Blood Pressure Last Admin: 10/05/16 02:02 Dose: 100 mg Heparin Sodium/Dextrose (Heparin 25,000 Units/250ml In D5w) 25,000 units in 250 mls @ 8.399 mls/hr IV .Q24H PRN; Protocol; 12 UNITS/KG/HR PRN Reason: ADJUST RATE PER PROTOCOL Last Admin: 10/06/16 07:30 Dose: 12 units/kg/hr, 8.399 mls/hr Cefepime HCl (Maxipime 1gm) 1 gm in 100 mls @ 200 mls/hr IVPB DAILY [facility] Last Admin: 10/06/16 09:57 Dose: 200 mls/hr Insulin Detemir (Levemir) 6 unit SC BID [facility] Last Admin: 10/06/16 09:57 Dose: 6 unit Insulin Human Lispro (Humalog High) 0 units SC ACHS [facility] PRN Reason: Protocol Last Admin: 10/06/16 12:02 Dose: 10 units Lisinopril (Zestril) 80 mg PO DAILY [facility] Last Admin: 10/06/16 10:01 Dose: 80 mg Morphine Sulfate (Morphine) 2 mg IVP Q4H PRN PRN Reason: Pain, severe (8-10) Ondansetron HCl (Zofran Inj) 4 mg IVP ONCE PRN PRN Reason: Nausea/Vomiting Oxycodone/Acetaminophen (Percocet 5/325 Mg Tab) 1 tab PO Q6H PRN PRN Reason: Pain, moderate (4-7) Stop: 10/09/16 14:51 Pantoprazole Sodium (Protonix Inj) 40 mg IVP DAILY [facility] Last Admin: 10/06/16 10:00 Dose: 40 mg Primidone (Mysoline) 50 mg PO DAILY [facility] Last Admin: 10/06/16 09:59 Dose: 50 mg Sertraline HCl (Zoloft) 25 mg PO HS [facility] Last Admin: 10/05/16 22:32 Dose: 25 mg Sevelamer HCl (Renagel) 800 mg PO TID [facility] Last Admin: 10/06/16 13:56 Dose: 800 mg Zinc Sulfate (Zinc Sulfate 220 Mg Cap) 220 mg PO DAILY [facility] Last Admin: 10/06/16 10:01 Dose: 220 mg - Labs Labs: 10/06/16 08:00 10/06/16 08:00 PT 10.7 Seconds (9.9-11.8) 10/06/16 08:00 INR 0.99 (0.93-1.08) 10/06/16 08:00 APTT 55.1 Seconds (23.7-30.8) H 10/06/16 14:15 - Constitutional Appears: Non-toxic, No acute distress, Chronically Ill - Head Exam Head Exam: eschar over right brow from fall but otherwise NCAT - Eye Exam Eye Exam: EOMI, no injection - ENT Exam ENT Exam: Mucous Membranes Moist - Neck Exam Neck Exam: soft, supple - Respiratory Exam Respiratory Exam: Clear to Ausculation Bilateral. absent: Rales, Rhonchi, Wheezes - Cardiovascular Exam Cardiovascular Exam: RRR, +S1, +S2, no M/R/G - GI/Abdominal Exam GI & Abdominal Exam: Soft, Normal Bowel Sounds, NT, ND - Extremities Exam Extremities Exam: Right BKA, splinted and wrapped s/p femur ORIF, somewhat tender during movement and palpation, C/D/I, left foot bandaged with known heel ulcer - Neurological Exam Neurological Exam: awake, alert, oriented x3 but at times sleepy, follows commands - Skin Exam Skin Exam: Dry and intact except for aforementioned Assessment and Plan - Assessment and Plan (Free Text) Assessment: 66 year old female with a femur fracture after witnessed mechanical fall, POD#2 ORIF. Plan: 1. R femur fracture s/p witnessed mechanical fall POD #2 ORIF with Ortho, doing well Neurology Dr. Linares consulted Cardio Dr. Mon consulted, appreciate all recs Monitoring closely post op Switched to percocet and morphine for pain to reduce somnolence, will monitor repsonse 2. Hx Antiphospholipid syndrome Off warfarin for surgery, will re-start today but at 7.5mg as had INR of 4 upon admission while on 10mg Currently on heparin drip Consult Heme/Onc Dr. Dozier, appreciate all recs 3. Anemia Likely 2/2 blood loss from surgery and dilutional, continue to monitor transfuse if below 8 4. ESRD on Dialysis Nephro Dr. Eller consulted, appreciate all recs, cont HD Continue Sevelamer BUN and Cr stable 5. Hx CAD, CHF, HTN Continue all home medications Cardio Dr. Mon following 6. IDDM Cont levimir 6u BID Continue lispro sliding scale to high dose protocol Cont accuchecks 7. Chronic LLE Ankle Ulcer Wound Culture positive for pseudomonas Podiatry Dr. Issa following, appreciate all recs Cont Cefepime D2 8. Hx Parkinsons disease Cont home Carbidopa/Levodopa 9. Hx Seizure Disorder Cont home gabapentin and primidone 10. Hx of Depression and anxiety Continue Escitalopram, Alprazolam, Sertraline 11. GERD Continue home protonix GI/DVT ppx: protonix/heparin gtt Patient was seen and examined and case was discussed at length with attending physician. <Alexey Morton - Last Filed: 10/21/16 16:54> Objective - Vital Signs/Intake and Output Vital Signs (last 24 hours): Temp Pulse Resp BP Pulse Ox 99.1 F 73 16 122/65 95 10/10/16 16:30 10/10/16 16:30 10/10/16 16:30 10/10/16 16:30 10/10/16 16:30 - Labs Labs: 10/10/16 08:00 10/10/16 08:00 PT 35.5 Seconds (9.9-11.8) H* 10/10/16 08:00 INR 3.29 (0.93-1.08) H 10/10/16 08:00 APTT 45.3 Seconds (23.7-30.8) H 10/10/16 08:00 Attending/Attestation - Attestation I have personally seen and examined this patient.: Yes I have fully participated in the care of the patient.: Yes I have reviewed all pertinent clinical information, including history, physical exam and plan: Yes Notes (Text): 10/21/16 16:54 Medical record note made by the resident after discussion with my direction and input after the patient was personally seen and examined by me. I have reviewed the chart and agree that the record accurately reflects by personal performance of the history, physical exam, data review, and medical decision-making, in the course for the patient. I have also personally directed the plan of care.
--- NOTE | 2016-10-06 16:54 | CP.PCM.PN ---
Subjective - Date & Time of Evaluation Date of Evaluation: 10/06/16 Time of Evaluation: 16:50 - Subjective Subjective: Pt with improving swelling. Pain is controlled. Objective - Vital Signs/Intake and Output Vital Signs (last 24 hours): Temp Pulse Resp BP Pulse Ox 99.3 F 57 L 18 162/67 H 98 10/06/16 11:45 10/06/16 14:32 10/06/16 11:45 10/06/16 11:45 10/06/16 06:00 Intake and Output: 10/06/16 10/06/16 06:59 18:59 Intake Total 0 240 Output Total 0 Balance 0 240 - Medications Medications: Current Medications Acetaminophen (Tylenol 650mg/20.3ml Solution Ud) 650 mg PO Q6H PRN PRN Reason: Temperature Last Admin: 10/05/16 06:40 Dose: 650 mg Acetaminophen (Tylenol 650 Mg Supp) 650 mg RC Q4H PRN PRN Reason: Fever >100.4 F Albuterol/Ipratropium (Duoneb 3 Mg/0.5 Mg (3 Ml) Ud) 3 ml IH Q4H PRN PRN Reason: Shortness of Breath Last Admin: 10/03/16 07:50 Dose: 3 ml Alprazolam (Xanax) 0.5 mg PO TID PRN PRN Reason: Anxiety Amiodarone HCl (Cordarone) 200 mg PO DAILY [facility] Last Admin: 10/06/16 09:56 Dose: 200 mg Amlodipine Besylate (Norvasc) 10 mg PO DAILY [facility] Last Admin: 10/06/16 10:00 Dose: 10 mg Aspirin (Ecotrin) 81 mg PO DAILY [facility] Last Admin: 10/06/16 09:57 Dose: 81 mg Atorvastatin Calcium (Lipitor) 80 mg PO DIN [facility] Last Admin: 10/05/16 17:59 Dose: 80 mg Carbidopa/Levodopa (Sinemet 10/100) 1 tab PO TID [facility] Last Admin: 10/06/16 13:56 Dose: 1 tab Carvedilol (Coreg) 6.25 mg PO Q12 [facility] Last Admin: 10/06/16 09:56 Dose: 6.25 mg Clonidine HCl (Catapres) 0.3 mg PO Q8 [facility] Last Admin: 10/06/16 13:55 Dose: 0.3 mg Docusate Sodium (Colace) 100 mg PO DAILY [facility] Escitalopram Oxalate (Lexapro) 10 mg PO DAILY [facility] Last Admin: 10/06/16 09:57 Dose: 10 mg Gabapentin (Neurontin) 100 mg PO BID [facility] PRN Reason: Protocol Last Admin: 10/06/16 09:59 Dose: 100 mg Hydralazine HCl (Apresoline) 100 mg PO Q8H PRN PRN Reason: Systolic Blood Pressure Last Admin: 10/05/16 02:02 Dose: 100 mg Heparin Sodium/Dextrose (Heparin 25,000 Units/250ml In D5w) 25,000 units in 250 mls @ 8.399 mls/hr IV .Q24H PRN; Protocol; 12 UNITS/KG/HR PRN Reason: ADJUST RATE PER PROTOCOL Last Admin: 10/06/16 07:30 Dose: 12 units/kg/hr, 8.399 mls/hr Cefepime HCl (Maxipime 1gm) 1 gm in 100 mls @ 200 mls/hr IVPB DAILY [facility] Last Admin: 10/06/16 09:57 Dose: 200 mls/hr Insulin Detemir (Levemir) 6 unit SC BID [facility] Last Admin: 10/06/16 09:57 Dose: 6 unit Insulin Human Lispro (Humalog High) 0 units SC ACHS [facility] PRN Reason: Protocol Last Admin: 10/06/16 12:02 Dose: 10 units Lisinopril (Zestril) 80 mg PO DAILY [facility] Last Admin: 10/06/16 10:01 Dose: 80 mg Morphine Sulfate (Morphine) 2 mg IVP Q4H PRN PRN Reason: Pain, severe (8-10) Ondansetron HCl (Zofran Inj) 4 mg IVP ONCE PRN PRN Reason: Nausea/Vomiting Oxycodone/Acetaminophen (Percocet 5/325 Mg Tab) 1 tab PO Q6H PRN PRN Reason: Pain, moderate (4-7) Stop: 10/09/16 14:51 Pantoprazole Sodium (Protonix Inj) 40 mg IVP DAILY [facility] Last Admin: 10/06/16 10:00 Dose: 40 mg Primidone (Mysoline) 50 mg PO DAILY [facility] Last Admin: 10/06/16 09:59 Dose: 50 mg Sertraline HCl (Zoloft) 25 mg PO HS [facility] Last Admin: 10/05/16 22:32 Dose: 25 mg Sevelamer HCl (Renagel) 800 mg PO TID [facility] Last Admin: 10/06/16 13:56 Dose: 800 mg Warfarin Sodium (Coumadin) 7.5 mg PO 1800 [facility] PRN Reason: Protocol Zinc Sulfate (Zinc Sulfate 220 Mg Cap) 220 mg PO DAILY [facility] Last Admin: 10/06/16 10:01 Dose: 220 mg - Labs Labs: 10/06/16 08:00 10/06/16 08:00 PT 10.7 Seconds (9.9-11.8) 10/06/16 08:00 INR 0.99 (0.93-1.08) 10/06/16 08:00 APTT 55.1 Seconds (23.7-30.8) H 10/06/16 14:15 - Constitutional Appears: Well - Head Exam Head Exam: NORMAL INSPECTION - Eye Exam Eye Exam: Normal appearance Pupil Exam: NORMAL ACCOMODATION, PERRL - ENT Exam ENT Exam: Mucous Membranes Moist, Normal Exam - Neck Exam Neck Exam: Full ROM, Normal Inspection. absent: Lymphadenopathy - Respiratory Exam Respiratory Exam: Clear to Ausculation Bilateral, NORMAL BREATHING PATTERN - Cardiovascular Exam Cardiovascular Exam: REGULAR RHYTHM, +S1, +S2. absent: Murmur Assessment and Plan - Assessment and Plan (Free Text) Assessment: 1.) Fall 2.) Fraility 3.) ESRD on Dialysis 4.) CAD s/p CABG 5.) DM-2 6.) PAD 7.) Parkinsons 8.) GERD 9.) Depression, Anxiety 10.) Antiphospholipid syndrome 11.) DVT 12) HTN 13) Secondary hyperparathyroidism 14) Chronic Anemia 15) R BKA 16) L femoral bypass 17) R Femur fracture s/p surgery Plan: Pt had HD yesterday and her swelling is improved.On HTN meds, continue meds. Renal diet. On Lipitor for dyslipidemia. She will be placed on Coumadin.Next HD on Friday. Spoke to nurse.
--- NOTE | 2016-10-06 17:10 | CP.PCM.PN ---
Subjective - Date & Time of Evaluation Date of Evaluation: 10/06/16 Time of Evaluation: 15:00 - Subjective Subjective: Pt resting comfortably in NAD, w Hgb now at 8.8. Consider Aranesp as per Dr Madden, vs txfusion w dialysis Objective - Vital Signs/Intake and Output Vital Signs (last 24 hours): Temp Pulse Resp BP Pulse Ox 99.9 F H 55 L 18 167/63 H 98 10/06/16 16:52 10/06/16 16:52 10/06/16 16:52 10/06/16 16:52 10/06/16 06:00 Intake and Output: 10/06/16 10/06/16 06:59 18:59 Intake Total 0 240 Output Total 0 Balance 0 240 - Medications Medications: Current Medications Acetaminophen (Tylenol 650mg/20.3ml Solution Ud) 650 mg PO Q6H PRN PRN Reason: Temperature Last Admin: 10/05/16 06:40 Dose: 650 mg Acetaminophen (Tylenol 650 Mg Supp) 650 mg RC Q4H PRN PRN Reason: Fever >100.4 F Last Admin: 10/06/16 16:56 Dose: 650 mg Albuterol/Ipratropium (Duoneb 3 Mg/0.5 Mg (3 Ml) Ud) 3 ml IH Q4H PRN PRN Reason: Shortness of Breath Last Admin: 10/03/16 07:50 Dose: 3 ml Alprazolam (Xanax) 0.5 mg PO TID PRN PRN Reason: Anxiety Amiodarone HCl (Cordarone) 200 mg PO DAILY [facility] Last Admin: 10/06/16 09:56 Dose: 200 mg Amlodipine Besylate (Norvasc) 10 mg PO DAILY [facility] Last Admin: 10/06/16 10:00 Dose: 10 mg Aspirin (Ecotrin) 81 mg PO DAILY [facility] Last Admin: 10/06/16 09:57 Dose: 81 mg Atorvastatin Calcium (Lipitor) 80 mg PO DIN [facility] Last Admin: 10/05/16 17:59 Dose: 80 mg Carbidopa/Levodopa (Sinemet 10/100) 1 tab PO TID [facility] Last Admin: 10/06/16 13:56 Dose: 1 tab Carvedilol (Coreg) 6.25 mg PO Q12 [facility] Last Admin: 10/06/16 09:56 Dose: 6.25 mg Clonidine HCl (Catapres) 0.3 mg PO Q8 [facility] Last Admin: 10/06/16 13:55 Dose: 0.3 mg Docusate Sodium (Colace) 100 mg PO DAILY [facility] Escitalopram Oxalate (Lexapro) 10 mg PO DAILY [facility] Last Admin: 10/06/16 09:57 Dose: 10 mg Gabapentin (Neurontin) 100 mg PO BID [facility] PRN Reason: Protocol Last Admin: 10/06/16 09:59 Dose: 100 mg Hydralazine HCl (Apresoline) 100 mg PO Q8H PRN PRN Reason: Systolic Blood Pressure Last Admin: 10/05/16 02:02 Dose: 100 mg Heparin Sodium/Dextrose (Heparin 25,000 Units/250ml In D5w) 25,000 units in 250 mls @ 8.399 mls/hr IV .Q24H PRN; Protocol; 12 UNITS/KG/HR PRN Reason: ADJUST RATE PER PROTOCOL Last Admin: 10/06/16 07:30 Dose: 12 units/kg/hr, 8.399 mls/hr Cefepime HCl (Maxipime 1gm) 1 gm in 100 mls @ 200 mls/hr IVPB DAILY [facility] Last Admin: 10/06/16 09:57 Dose: 200 mls/hr Insulin Detemir (Levemir) 6 unit SC BID [facility] Last Admin: 10/06/16 09:57 Dose: 6 unit Insulin Human Lispro (Humalog High) 0 units SC ACHS [facility] PRN Reason: Protocol Last Admin: 10/06/16 16:56 Dose: 2 units Lisinopril (Zestril) 80 mg PO DAILY [facility] Last Admin: 10/06/16 10:01 Dose: 80 mg Morphine Sulfate (Morphine) 2 mg IVP Q4H PRN PRN Reason: Pain, severe (8-10) Ondansetron HCl (Zofran Inj) 4 mg IVP ONCE PRN PRN Reason: Nausea/Vomiting Oxycodone/Acetaminophen (Percocet 5/325 Mg Tab) 1 tab PO Q6H PRN PRN Reason: Pain, moderate (4-7) Stop: 10/09/16 14:51 Pantoprazole Sodium (Protonix Inj) 40 mg IVP DAILY [facility] Last Admin: 10/06/16 10:00 Dose: 40 mg Primidone (Mysoline) 50 mg PO DAILY [facility] Last Admin: 10/06/16 09:59 Dose: 50 mg Sertraline HCl (Zoloft) 25 mg PO HS [facility] Last Admin: 10/05/16 22:32 Dose: 25 mg Sevelamer HCl (Renagel) 800 mg PO TID [facility] Last Admin: 10/06/16 13:56 Dose: 800 mg Warfarin Sodium (Coumadin) 7.5 mg PO 1800 [facility] PRN Reason: Protocol Zinc Sulfate (Zinc Sulfate 220 Mg Cap) 220 mg PO DAILY [facility] Last Admin: 10/06/16 10:01 Dose: 220 mg - Labs Labs: 10/06/16 08:00 10/06/16 08:00 PT 10.7 Seconds (9.9-11.8) 10/06/16 08:00 INR 0.99 (0.93-1.08) 10/06/16 08:00 APTT 55.1 Seconds (23.7-30.8) H 10/06/16 14:15 - Constitutional Appears: Chronically Ill - Head Exam Head Exam: NORMOCEPHALIC - ENT Exam ENT Exam: Mucous Membranes Moist - Neck Exam Neck Exam: Normal Inspection - Respiratory Exam Respiratory Exam: NORMAL BREATHING PATTERN - Cardiovascular Exam Cardiovascular Exam: REGULAR RHYTHM - GI/Abdominal Exam GI & Abdominal Exam: Soft - Extremities Exam Additional comments: post hip repair, s/p bka - Neurological Exam Neurological Exam: Alert - Skin Skin Exam: Normal Color Assessment and Plan (1) Fracture, hip Status: Acute (2) Anticoagulant long-term use Status: Acute (3) Renal failure Status: Acute (4) Diabetes Status: Chronic (5) ESRD on dialysis Status: Chronic - Assessment and Plan (Free Text) Plan: Consider Aranesp vs Txfusion as indicated as per Dr Pang, cont plan, monitor clinically chk labs, restart Coumadin .
[2016-10-06] MEDS ORDERED: Dextrose 5%/0.45% NS 500 ML IV SCH (22:30)
[2016-10-07] MEDS ORDERED: Piperacillin/Tazobact 2.25gm 2.25 GM/100 ML BAG IVPB STA (00:19)
[2016-10-07 00:51] LABS: VENOUS BLOOD GAS BASE EXCESS -2.2 mmol/L (0.0-2.0); VENOUS BLOOD GAS PO2 49 mm/Hg (30-55); VENOUS BLOOD PH 7.36 (7.32-7.43)
[2016-10-07] MEDS ORDERED: Vancomycin 1gm in NS 250ml 1 GM/250 ML BAG IVPB STA (06:57)
--- NOTE | 2016-10-07 07:54 | CP.PCM.PN ---
Subjective - Date & Time of Evaluation Date of Evaluation: 10/07/16 Time of Evaluation: 07:49 - Subjective Subjective: Pt with no CP/SOB. more awake. Objective - Vital Signs/Intake and Output Vital Signs (last 24 hours): Temp Pulse Resp BP Pulse Ox 98.9 F 58 L 19 167/55 H 100 10/07/16 06:00 10/07/16 06:08 10/07/16 06:00 10/07/16 06:08 10/07/16 06:00 Intake and Output: 10/07/16 10/07/16 06:59 18:59 Intake Total 741 Balance 741 - Medications Medications: Current Medications Acetaminophen (Tylenol 650mg/20.3ml Solution Ud) 650 mg PO Q6H PRN PRN Reason: Temperature Last Admin: 10/05/16 06:40 Dose: 650 mg Acetaminophen (Tylenol 650 Mg Supp) 650 mg RC Q4H PRN PRN Reason: Fever >100.4 F Last Admin: 10/06/16 23:24 Dose: 650 mg Albuterol/Ipratropium (Duoneb 3 Mg/0.5 Mg (3 Ml) Ud) 3 ml IH Q4H PRN PRN Reason: Shortness of Breath Last Admin: 10/03/16 07:50 Dose: 3 ml Alprazolam (Xanax) 0.5 mg PO TID PRN PRN Reason: Anxiety Amiodarone HCl (Cordarone) 200 mg PO DAILY [facility] Last Admin: 10/06/16 09:56 Dose: 200 mg Amlodipine Besylate (Norvasc) 10 mg PO DAILY [facility] Last Admin: 10/06/16 10:00 Dose: 10 mg Aspirin (Ecotrin) 81 mg PO DAILY [facility] Last Admin: 10/06/16 09:57 Dose: 81 mg Atorvastatin Calcium (Lipitor) 80 mg PO DIN [facility] Last Admin: 10/06/16 18:09 Dose: 80 mg Carbidopa/Levodopa (Sinemet 10/100) 1 tab PO TID [facility] Last Admin: 10/06/16 18:10 Dose: 1 tab Carvedilol (Coreg) 6.25 mg PO Q12 [facility] Last Admin: 10/06/16 22:05 Dose: Not Given Clonidine HCl (Catapres) 0.3 mg PO Q8 [facility] Last Admin: 10/07/16 06:08 Dose: 0.3 mg Docusate Sodium (Colace) 100 mg PO DAILY [facility] Escitalopram Oxalate (Lexapro) 10 mg PO DAILY [facility] Last Admin: 10/06/16 09:57 Dose: 10 mg Gabapentin (Neurontin) 100 mg PO BID [facility] PRN Reason: Protocol Last Admin: 10/06/16 18:09 Dose: 100 mg Hydralazine HCl (Apresoline) 100 mg PO Q8H PRN PRN Reason: Systolic Blood Pressure Last Admin: 10/05/16 02:02 Dose: 100 mg Heparin Sodium/Dextrose (Heparin 25,000 Units/250ml In D5w) 25,000 units in 250 mls @ 8.399 mls/hr IV .Q24H PRN; Protocol; 12 UNITS/KG/HR PRN Reason: ADJUST RATE PER PROTOCOL Last Admin: 10/06/16 07:30 Dose: 12 units/kg/hr, 8.399 mls/hr Vancomycin HCl (Vancomycin 1gm) 1 gm in 250 mls @ 167 mls/hr IVPB STAT [facility] PRN Reason: Protocol Stop: 10/07/16 08:26 Piperacillin Sod/Tazobactam Sod (Zosyn 2.25 Gm In 0.9% 100 Ml) 2.25 gm in 100 mls @ 100 mls/hr IVPB Q8 [facility] PRN Reason: Protocol Stop: 10/07/16 14:59 Insulin Detemir (Levemir) 6 unit SC BID [facility] Last Admin: 10/06/16 18:09 Dose: 6 unit Insulin Human Lispro (Humalog High) 0 units SC ACHS [facility] PRN Reason: Protocol Last Admin: 10/06/16 22:05 Dose: Not Given Lisinopril (Zestril) 80 mg PO DAILY [facility] Last Admin: 10/06/16 10:01 Dose: 80 mg Morphine Sulfate (Morphine) 2 mg IVP Q4H PRN PRN Reason: Pain, severe (8-10) Ondansetron HCl (Zofran Inj) 4 mg IVP ONCE PRN PRN Reason: Nausea/Vomiting Oxycodone/Acetaminophen (Percocet 5/325 Mg Tab) 1 tab PO Q6H PRN PRN Reason: Pain, moderate (4-7) Stop: 10/09/16 14:51 Pantoprazole Sodium (Protonix Inj) 40 mg IVP DAILY [facility] Last Admin: 10/06/16 10:00 Dose: 40 mg Primidone (Mysoline) 50 mg PO DAILY [facility] Last Admin: 10/06/16 09:59 Dose: 50 mg Sertraline HCl (Zoloft) 25 mg PO HS [facility] Last Admin: 10/06/16 22:07 Dose: Not Given Sevelamer HCl (Renagel) 800 mg PO TID [facility] Last Admin: 10/06/16 18:10 Dose: 800 mg Warfarin Sodium (Coumadin) 7.5 mg PO 1800 [facility] PRN Reason: Protocol Last Admin: 10/06/16 18:09 Dose: 7.5 mg Zinc Sulfate (Zinc Sulfate 220 Mg Cap) 220 mg PO DAILY [facility] Last Admin: 10/06/16 10:01 Dose: 220 mg - Labs Labs: 10/06/16 08:00 10/06/16 08:00 PT 10.7 Seconds (9.9-11.8) 10/06/16 08:00 INR 0.99 (0.93-1.08) 10/06/16 08:00 APTT 72.0 Seconds (23.7-30.8) H* 10/06/16 20:15 - Head Exam Head Exam: ATRAUMATIC, NORMAL INSPECTION, NORMOCEPHALIC - Eye Exam Eye Exam: EOMI, Normal appearance, PERRL - ENT Exam ENT Exam: Mucous Membranes Moist, Normal Exam - Neck Exam Neck Exam: Full ROM, Normal Inspection. absent: Lymphadenopathy - Respiratory Exam Respiratory Exam: Clear to Ausculation Bilateral, NORMAL BREATHING PATTERN - Cardiovascular Exam Cardiovascular Exam: REGULAR RHYTHM, RRR, +S1, +S2. absent: Murmur - GI/Abdominal Exam GI & Abdominal Exam: Normal Bowel Sounds. absent: Hernia, Hypoactive Bowel Sounds, Organomegaly - Psychiatric Exam Psychiatric exam: Normal Affect, Normal Mood Assessment and Plan - Assessment and Plan (Free Text) Assessment: 1.) Fall 2.) Fraility 3.) ESRD on Dialysis 4.) CAD s/p CABG 5.) DM-2 6.) PAD 7.) Parkinsons 8.) GERD 9.) Depression, Anxiety 10.) Antiphospholipid syndrome 11.) DVT 12) HTN 13) Secondary hyperparathyroidism 14) Chronic Anemia 15) R BKA 16) L femoral bypass 17) R Femur fracture s/p surgery Plan: Pt for HD in AM. Receiving Aranesp 60mg on HD but will increase to 100mg. Will need PT. On HTN meds, continue meds. Renal diet. On Lipitor for dyslipidemia. She will be placed on Coumadin. Next HD on Friday. Spoke to HD nurse. On Coumadin. She continues to have delerium and is not back to her baseline. She was recently at [facility] [place] and will have less time for [facility]. She has refused terminal carman placement in the past.
[2016-10-07] MEDS: Insulin Lispro (HUMAlog) HIGH Coverage SC SCH ×3 (08:12→17:52)
[2016-10-07 08:29] LABS: INR 1.06 (0.93-1.08); PARTIAL THROMBOPLASTIN TIME 44.6 Seconds (23.7-30.8); PROTHROMBIN TIME 11.4 Seconds (9.9-11.8)
[2016-10-07 08:31] LABS: ALBUMIN 3.4 g/dL (3.0-4.8); CALCIUM 9.4 mg/dL (8.4-10.5)
--- NOTE | 2016-10-07 09:02 | CP.PCM.PN ---
<Nelia Jacobs - Last Filed: 10/08/16 06:38> Subjective - Date & Time of Evaluation Date of Evaluation: 10/07/16 Time of Evaluation: 08:59 - Subjective Subjective: PGY-[address] Dozier Pt seen and examined. resting comfortably in bed. No pain at the moment. Denies CP, SOB, N/V/C/D, dysuria Objective - Vital Signs/Intake and Output Vital Signs (last 24 hours): Temp Pulse Resp BP Pulse Ox 98.9 F 58 L 19 167/55 H 100 10/07/16 06:00 10/07/16 06:08 10/07/16 06:00 10/07/16 06:08 10/07/16 06:00 Intake and Output: 10/07/16 10/07/16 06:59 18:59 Intake Total 741 Balance 741 - Medications Medications: Current Medications Acetaminophen (Tylenol 650mg/20.3ml Solution Ud) 650 mg PO Q6H PRN PRN Reason: Temperature Last Admin: 10/05/16 06:40 Dose: 650 mg Acetaminophen (Tylenol 650 Mg Supp) 650 mg RC Q4H PRN PRN Reason: Fever >100.4 F Last Admin: 10/06/16 23:24 Dose: 650 mg Albuterol/Ipratropium (Duoneb 3 Mg/0.5 Mg (3 Ml) Ud) 3 ml IH Q4H PRN PRN Reason: Shortness of Breath Last Admin: 10/03/16 07:50 Dose: 3 ml Alprazolam (Xanax) 0.5 mg PO TID PRN PRN Reason: Anxiety Amiodarone HCl (Cordarone) 200 mg PO DAILY [facility] Last Admin: 10/06/16 09:56 Dose: 200 mg Amlodipine Besylate (Norvasc) 10 mg PO DAILY [facility] Last Admin: 10/06/16 10:00 Dose: 10 mg Aspirin (Ecotrin) 81 mg PO DAILY [facility] Last Admin: 10/06/16 09:57 Dose: 81 mg Atorvastatin Calcium (Lipitor) 80 mg PO DIN [facility] Last Admin: 10/06/16 18:09 Dose: 80 mg Carbidopa/Levodopa (Sinemet 10/100) 1 tab PO TID [facility] Last Admin: 10/06/16 18:10 Dose: 1 tab Carvedilol (Coreg) 6.25 mg PO Q12 [facility] Last Admin: 10/06/16 22:05 Dose: Not Given Clonidine HCl (Catapres) 0.3 mg PO Q8 [facility] Last Admin: 10/07/16 06:08 Dose: 0.3 mg Docusate Sodium (Colace) 100 mg PO DAILY [facility] Escitalopram Oxalate (Lexapro) 10 mg PO DAILY [facility] Last Admin: 10/06/16 09:57 Dose: 10 mg Gabapentin (Neurontin) 100 mg PO BID [facility] PRN Reason: Protocol Last Admin: 10/06/16 18:09 Dose: 100 mg Hydralazine HCl (Apresoline) 100 mg PO Q8H PRN PRN Reason: Systolic Blood Pressure Last Admin: 10/05/16 02:02 Dose: 100 mg Heparin Sodium/Dextrose (Heparin 25,000 Units/250ml In D5w) 25,000 units in 250 mls @ 8.399 mls/hr IV .Q24H PRN; Protocol; 12 UNITS/KG/HR PRN Reason: ADJUST RATE PER PROTOCOL Last Admin: 10/06/16 07:30 Dose: 12 units/kg/hr, 8.399 mls/hr Piperacillin Sod/Tazobactam Sod (Zosyn 2.25 Gm In 0.9% 100 Ml) 2.25 gm in 100 mls @ 100 mls/hr IVPB Q8 [facility] PRN Reason: Protocol Stop: 10/07/16 14:59 Insulin Detemir (Levemir) 6 unit SC BID [facility] Last Admin: 10/06/16 18:09 Dose: 6 unit Insulin Human Lispro (Humalog High) 0 units SC ACHS [facility] PRN Reason: Protocol Last Admin: 10/07/16 08:12 Dose: Not Given Lisinopril (Zestril) 80 mg PO DAILY [facility] Last Admin: 10/06/16 10:01 Dose: 80 mg Morphine Sulfate (Morphine) 2 mg IVP Q4H PRN PRN Reason: Pain, severe (8-10) Ondansetron HCl (Zofran Inj) 4 mg IVP ONCE PRN PRN Reason: Nausea/Vomiting Oxycodone/Acetaminophen (Percocet 5/325 Mg Tab) 1 tab PO Q6H PRN PRN Reason: Pain, moderate (4-7) Stop: 10/09/16 14:51 Pantoprazole Sodium (Protonix Inj) 40 mg IVP DAILY [facility] Last Admin: 10/06/16 10:00 Dose: 40 mg Primidone (Mysoline) 50 mg PO DAILY [facility] Last Admin: 10/06/16 09:59 Dose: 50 mg Sertraline HCl (Zoloft) 25 mg PO HS [facility] Last Admin: 10/06/16 22:07 Dose: Not Given Sevelamer HCl (Renagel) 800 mg PO TID [facility] Last Admin: 10/06/16 18:10 Dose: 800 mg Warfarin Sodium (Coumadin) 7.5 mg PO 1800 [facility] PRN Reason: Protocol Last Admin: 10/06/16 18:09 Dose: 7.5 mg Zinc Sulfate (Zinc Sulfate 220 Mg Cap) 220 mg PO DAILY [facility] Last Admin: 10/06/16 10:01 Dose: 220 mg - Labs Labs: 10/06/16 08:00 10/07/16 07:40 PT 11.4 Seconds (9.9-11.8) 10/07/16 07:40 INR 1.06 (0.93-1.08) 10/07/16 07:40 APTT 44.6 Seconds (23.7-30.8) H 10/07/16 07:40 - Constitutional Appears: No Acute Distress - Head Exam Head Exam: NORMAL INSPECTION, NORMOCEPHALIC Additional comments: R abrasion healing, scabbed well - Eye Exam Eye Exam: EOMI, Normal appearance, PERRL. absent: Scleral icterus - ENT Exam ENT Exam: Mucous Membranes Moist - Respiratory Exam Respiratory Exam: Clear to Ausculation Bilateral. absent: Rales, Rhonchi, Wheezes - Cardiovascular Exam Cardiovascular Exam: REGULAR RHYTHM, +S1, +S2 - GI/Abdominal Exam GI & Abdominal Exam: Soft. absent: Firm, Rigid - Extremities Exam Extremities Exam: Normal Capillary Refill. absent: Calf Tenderness - Neurological Exam Neurological Exam: Alert, Awake, Oriented x3 - Psychiatric Exam Psychiatric exam: Normal Affect, Normal Mood - Skin Skin Exam: Warm Assessment and Plan - Assessment and Plan (Free Text) Plan: 66 years old female with ESRD on HD has Hx of DVTs, Antiphospholipid syndrome, PAD, questionable seizure Hx, has a high risk to venous and arterial thromboembolic events. Pt has coumadin coagulopathy. Pt sustained R femur fracture, and will undergo ORIF with nail. Pt has cellulitis. Pt has delirium Antiphospholipid syndrome - hepatitis antibody titer negative - anticarlipin antibody POS - 12/18/2001: Factor II level 52% Factor V level was 28% (nl: 60-440) Factor V Leiden negative Factor XIII was 144 (n; 50-150) - Confirm: Hexagonal phospholipid titer value 11.8 sec (nl: up to 8) Anticoagulation Tx - No signs of fat embolism/DVT - ASA 81 - consider Restart coumadin with Goal INR from 2-3 on day 3 of heparin (today is day 2) - heparin bridge ESRD on HD - today. And next tomorrow L foot wound culture - Gram (-) walter Buttock wound - Gram (+) cocci, e-coli - consider antibiotics. Nomocytic anemia - Aranesp 60mg on HD but will increase to 100mg. Other imagin-99% stenosis in proximal R SFA Echo: EF 40. RVSP 64 severe tricuspid regurg will S/R/D/w Dr. Dozier <Marcial Dozier P - Last Filed: 10/10/16 20:23> Objective - Vital Signs/Intake and Output Vital Signs (last 24 hours): Temp Pulse Resp BP Pulse Ox 99.1 F 73 16 122/65 95 10/10/16 16:30 10/10/16 16:30 10/10/16 16:30 10/10/16 16:30 10/10/16 16:30 Intake and Output: 10/10/16 10/11/16 18:59 06:59 Intake Total 240 Output Total 0 Balance 240 - Labs Labs: 10/10/16 08:00 10/10/16 08:00 PT 35.5 Seconds (9.9-11.8) H* 10/10/16 08:00 INR 3.29 (0.93-1.08) H 10/10/16 08:00 APTT 45.3 Seconds (23.7-30.8) H 10/10/16 08:00 Attending/Attestation - Attestation I have personally seen and examined this patient.: Yes I have fully participated in the care of the patient.: Yes I have reviewed all pertinent clinical information, including history, physical exam and plan: Yes
[2016-10-07] MEDS: Piperacillin/Tazobact 2.25gm 2.25 GM/100 ML BAG IVPB SCH ×2 (09:24→15:17)
--- NOTE | 2016-10-07 09:31 | RAD ---
HISTORY: rule out pneumonia COMPARISON: 10/01/2016 FINDINGS: LUNGS: No active pulmonary disease. PLEURA: No significant pleural effusion identified, no pneumothorax apparent. CARDIOVASCULAR: Normal. OSSEOUS STRUCTURES: No significant abnormalities. VISUALIZED UPPER ABDOMEN: Normal. OTHER FINDINGS: Dialysis catheter. Sternal wires IMPRESSION: No active disease.
--- NOTE | 2016-10-07 09:47 | CP.PCM.PN ---
Subjective - Date & Time of Evaluation Date of Evaluation: 10/07/16 Time of Evaluation: 09:35 - Subjective Subjective: PGY-2 neurology progress note for Dr Linares. Patient was seen this morning, patient was not following commands. Patient also had right upper extremities weakness. MRI was ordered, revealing acute 2 mm left occipital lobe infarct Saw patient again around [address] Linares, patient was more verbal, answering questions, but following commands. Patient appears to be at baseline. Patient denies headache, dizziness, cp or sob. Patient denies visual changes. Objective - Vital Signs/Intake and Output Vital Signs (last 24 hours): Temp Pulse Resp BP Pulse Ox 98.9 F 58 L 19 167/55 H 100 10/07/16 06:00 10/07/16 06:08 10/07/16 06:00 10/07/16 06:08 10/07/16 06:00 Intake and Output: 10/07/16 10/07/16 06:59 18:59 Intake Total 741 Balance 741 - Medications Medications: Current Medications Acetaminophen (Tylenol 650mg/20.3ml Solution Ud) 650 mg PO Q6H PRN PRN Reason: Temperature Last Admin: 10/05/16 06:40 Dose: 650 mg Acetaminophen (Tylenol 650 Mg Supp) 650 mg RC Q4H PRN PRN Reason: Fever >100.4 F Last Admin: 10/06/16 23:24 Dose: 650 mg Albuterol/Ipratropium (Duoneb 3 Mg/0.5 Mg (3 Ml) Ud) 3 ml IH Q4H PRN PRN Reason: Shortness of Breath Last Admin: 10/03/16 07:50 Dose: 3 ml Alprazolam (Xanax) 0.5 mg PO TID PRN PRN Reason: Anxiety Amiodarone HCl (Cordarone) 200 mg PO DAILY [facility] Last Admin: 10/06/16 09:56 Dose: 200 mg Amlodipine Besylate (Norvasc) 10 mg PO DAILY [facility] Last Admin: 10/06/16 10:00 Dose: 10 mg Aspirin (Ecotrin) 81 mg PO DAILY [facility] Last Admin: 10/06/16 09:57 Dose: 81 mg Atorvastatin Calcium (Lipitor) 80 mg PO DIN [facility] Last Admin: 10/06/16 18:09 Dose: 80 mg Carbidopa/Levodopa (Sinemet 10/100) 1 tab PO TID [facility] Last Admin: 10/06/16 18:10 Dose: 1 tab Carvedilol (Coreg) 6.25 mg PO Q12 [facility] Last Admin: 10/06/16 22:05 Dose: Not Given Clonidine HCl (Catapres) 0.3 mg PO Q8 [facility] Last Admin: 10/07/16 06:08 Dose: 0.3 mg Docusate Sodium (Colace) 100 mg PO DAILY [facility] Escitalopram Oxalate (Lexapro) 10 mg PO DAILY [facility] Last Admin: 10/06/16 09:57 Dose: 10 mg Gabapentin (Neurontin) 100 mg PO BID [facility] PRN Reason: Protocol Last Admin: 10/06/16 18:09 Dose: 100 mg Hydralazine HCl (Apresoline) 100 mg PO Q8H PRN PRN Reason: Systolic Blood Pressure Last Admin: 10/05/16 02:02 Dose: 100 mg Heparin Sodium/Dextrose (Heparin 25,000 Units/250ml In D5w) 25,000 units in 250 mls @ 8.399 mls/hr IV .Q24H PRN; Protocol; 12 UNITS/KG/HR PRN Reason: ADJUST RATE PER PROTOCOL Last Admin: 10/06/16 07:30 Dose: 12 units/kg/hr, 8.399 mls/hr Piperacillin Sod/Tazobactam Sod (Zosyn 2.25 Gm In 0.9% 100 Ml) 2.25 gm in 100 mls @ 100 mls/hr IVPB Q8 [facility] PRN Reason: Protocol Stop: 10/14/16 07:01 Last Admin: 10/07/16 09:24 Dose: 100 mls/hr Insulin Detemir (Levemir) 6 unit SC BID [facility] Last Admin: 10/06/16 18:09 Dose: 6 unit Insulin Human Lispro (Humalog High) 0 units SC ACHS [facility] PRN Reason: Protocol Last Admin: 10/07/16 08:12 Dose: Not Given Lisinopril (Zestril) 80 mg PO DAILY [facility] Last Admin: 10/06/16 10:01 Dose: 80 mg Ondansetron HCl (Zofran Inj) 4 mg IVP ONCE PRN PRN Reason: Nausea/Vomiting Oxycodone/Acetaminophen (Percocet 5/325 Mg Tab) 1 tab PO Q6H PRN PRN Reason: Pain, moderate (4-7) Stop: 10/09/16 14:51 Pantoprazole Sodium (Protonix Inj) 40 mg IVP DAILY [facility] Last Admin: 10/06/16 10:00 Dose: 40 mg Primidone (Mysoline) 50 mg PO DAILY [facility] Last Admin: 10/06/16 09:59 Dose: 50 mg Sertraline HCl (Zoloft) 25 mg PO HS [facility] Last Admin: 10/06/16 22:07 Dose: Not Given Sevelamer HCl (Renagel) 800 mg PO TID [facility] Last Admin: 10/06/16 18:10 Dose: 800 mg Warfarin Sodium (Coumadin) 7.5 mg PO 1800 [facility] PRN Reason: Protocol Last Admin: 10/06/16 18:09 Dose: 7.5 mg Zinc Sulfate (Zinc Sulfate 220 Mg Cap) 220 mg PO DAILY [facility] Last Admin: 10/06/16 10:01 Dose: 220 mg - Labs Labs: 10/06/16 08:00 10/07/16 07:40 PT 11.4 Seconds (9.9-11.8) 10/07/16 07:40 INR 1.06 (0.93-1.08) 10/07/16 07:40 APTT 44.6 Seconds (23.7-30.8) H 10/07/16 07:40 - Constitutional Appears: No Acute Distress, Older Than Stated Age, Chronically Ill - Head Exam Head Exam: ATRAUMATIC, NORMAL INSPECTION, NORMOCEPHALIC - Eye Exam Eye Exam: Normal appearance - ENT Exam ENT Exam: Mucous Membranes Moist - Neck Exam Neck Exam: Normal Inspection - Respiratory Exam Respiratory Exam: Clear to Ausculation Bilateral, NORMAL BREATHING PATTERN. absent: Rales, Rhonchi, Wheezes, Respiratory Distress, Stridor - Cardiovascular Exam Cardiovascular Exam: REGULAR RHYTHM, +S1, +S2. absent: Murmur - GI/Abdominal Exam GI & Abdominal Exam: Soft, Normal Bowel Sounds. absent: Firm, Guarding, Rigid, Tenderness - Extremities Exam Extremities Exam: Tenderness. absent: Pedal Edema - Neurological Exam Neurological Exam: Alert, Awake, Oriented x3 Neuro motor strength exam: Left Upper Extremity: 5, Right Upper Extremity: 4, Left Lower Extremity: 4, Right Lower Extremity: 0 (can't assess, s/p ORIF, BKA) Additional comments: Mental status: Patient is a&ox2, flat affect, able to speak in full sentences. CNII-CNXII- Perrla, VFF by confrontation, EMOI, no nystagamus, no ptosis, sensation intact to light touch. [place] muscles strong symmetrically, no facial asymmetry. Tongue protrude midline, no atrophy or fasciculation. Sensory: fine tough, pp temperature, vibration sensations and proprioceptive functions intact. There is no evidence of extinction to DSS. Motor exam: + resting tremors in the right upper extremities. Rigidity with passive movement of b/l upper extremities. Reflex: deep tendon reflex were plus 2 with flexor plantar response on the LE. 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 Neurology was consulted to evaluate for worsening of the Parkinson. This AM patient had episode of worsening mental status, MRI revealed 2 mm left occipital infarct. As per design engineering intern , patient has been experiencing waxing and waning mental status since Tee afternoon after the surgery. Patient also had carotid u/s with 60-79% proximal left ICA stenosis. 40-59% proximal right ICA stenosis. Impression: asymptomatic left occipital infarct, likely 2nd to late stage of anesthesia effect. Patient already high risk for cva. Plan: - Will obtain MRA of the neck w/o contrast to evaluate the neck carotid stenosis reported on the u/s - continue high dose steroid - continue asa - neuro check q4hs - fall, aspiration and seizure precaution - swallow and speech eval - Control and keep sbp below 160s. - start folic acid po - Obtain EEG as outpatient. Patient seen, examined, and case discussed with Dr Linares.
[2016-10-07 09:56] LABS: BASO # 0.03 K/mm3 (0.0-2.0); BASO % 0.3 % (0.0-3.0); EOS # 0.2 (0.0-0.7); EOS % 1.7 % (1.5-5.0); GRAN # 7.27 (1.4-6.5); GRAN % 80.3 % (50.0-68.0); HEMOGLOBIN 8.4 gm/dL (12.0-16.0); LYMPH # 0.8 (1.2-3.4); LYMPH % 8.3 % (22.0-35.0); MEAN CELL VOLUME 87.2 fL (80.0-105.0); MEAN CORPUSCULAR HEMOGLOBIN 26.9 pg (25.0-35.0); MEAN CORPUSCULAR HGB CONC 30.9 g/dl (31.0-37.0); MEAN PLATELET VOLUME 11.7 fl (7.0-11.0); MONO # 0.9 (0.1-0.6); MONO % 9.4 % (1.0-6.0); PLATELET COUNT 207 10^3/uL (120.0-450.0); RBC 3.12 10^6/uL (3.5-6.1); RED CELL DISTRIBUTION WIDTH 17.5 % (11.5-14.5); WHITE BLOOD COUNT 9.1 10^3/ul (4.5-11.0)
--- NOTE | 2016-10-07 09:58 | CP.PCM.PN ---
<Sharmila Em - Last Filed: 10/07/16 09:54> Subjective - Date & Time of Evaluation Date of Evaluation: 10/07/16 Time of Evaluation: 09:54 - Subjective Subjective: 66 year old female was seen at bedside, with attending, Dr. Issa regarding left heel ulceration. Patient is 3 day s/p right femur ORIF. She has an offloding boot her on left foot. She denies any n/v/f/c/sob/cp. Objective - Vital Signs/Intake and Output Vital Signs (last 24 hours): Temp Pulse Resp BP Pulse Ox 98.9 F 58 L 19 167/55 H 100 10/07/16 06:00 10/07/16 06:08 10/07/16 06:00 10/07/16 06:08 10/07/16 06:00 Intake and Output: 10/07/16 10/07/16 06:59 18:59 Intake Total 741 Balance 741 - Medications Medications: Current Medications Acetaminophen (Tylenol 650mg/20.3ml Solution Ud) 650 mg PO Q6H PRN PRN Reason: Temperature Last Admin: 10/05/16 06:40 Dose: 650 mg Acetaminophen (Tylenol 650 Mg Supp) 650 mg RC Q4H PRN PRN Reason: Fever >100.4 F Last Admin: 10/06/16 23:24 Dose: 650 mg Albuterol/Ipratropium (Duoneb 3 Mg/0.5 Mg (3 Ml) Ud) 3 ml IH Q4H PRN PRN Reason: Shortness of Breath Last Admin: 10/03/16 07:50 Dose: 3 ml Alprazolam (Xanax) 0.5 mg PO TID PRN PRN Reason: Anxiety Amiodarone HCl (Cordarone) 200 mg PO DAILY [facility] Last Admin: 10/06/16 09:56 Dose: 200 mg Amlodipine Besylate (Norvasc) 10 mg PO DAILY [facility] Last Admin: 10/06/16 10:00 Dose: 10 mg Aspirin (Ecotrin) 81 mg PO DAILY [facility] Last Admin: 10/06/16 09:57 Dose: 81 mg Atorvastatin Calcium (Lipitor) 80 mg PO DIN [facility] Last Admin: 10/06/16 18:09 Dose: 80 mg Carbidopa/Levodopa (Sinemet 10/100) 1 tab PO TID [facility] Last Admin: 10/06/16 18:10 Dose: 1 tab Carvedilol (Coreg) 6.25 mg PO Q12 [facility] Last Admin: 10/06/16 22:05 Dose: Not Given Clonidine HCl (Catapres) 0.3 mg PO Q8 [facility] Last Admin: 10/07/16 06:08 Dose: 0.3 mg Docusate Sodium (Colace) 100 mg PO DAILY [facility] Escitalopram Oxalate (Lexapro) 10 mg PO DAILY [facility] Last Admin: 10/06/16 09:57 Dose: 10 mg Gabapentin (Neurontin) 100 mg PO BID [facility] PRN Reason: Protocol Last Admin: 10/06/16 18:09 Dose: 100 mg Hydralazine HCl (Apresoline) 100 mg PO Q8H PRN PRN Reason: Systolic Blood Pressure Last Admin: 10/05/16 02:02 Dose: 100 mg Heparin Sodium/Dextrose (Heparin 25,000 Units/250ml In D5w) 25,000 units in 250 mls @ 8.399 mls/hr IV .Q24H PRN; Protocol; 12 UNITS/KG/HR PRN Reason: ADJUST RATE PER PROTOCOL Last Admin: 10/06/16 07:30 Dose: 12 units/kg/hr, 8.399 mls/hr Piperacillin Sod/Tazobactam Sod (Zosyn 2.25 Gm In 0.9% 100 Ml) 2.25 gm in 100 mls @ 100 mls/hr IVPB Q8 [facility] PRN Reason: Protocol Stop: 10/14/16 07:01 Last Admin: 10/07/16 09:24 Dose: 100 mls/hr Insulin Detemir (Levemir) 6 unit SC BID [facility] Last Admin: 10/06/16 18:09 Dose: 6 unit Insulin Human Lispro (Humalog High) 0 units SC ACHS [facility] PRN Reason: Protocol Last Admin: 10/07/16 08:12 Dose: Not Given Lisinopril (Zestril) 80 mg PO DAILY [facility] Last Admin: 10/06/16 10:01 Dose: 80 mg Ondansetron HCl (Zofran Inj) 4 mg IVP ONCE PRN PRN Reason: Nausea/Vomiting Oxycodone/Acetaminophen (Percocet 5/325 Mg Tab) 1 tab PO Q6H PRN PRN Reason: Pain, moderate (4-7) Stop: 10/09/16 14:51 Pantoprazole Sodium (Protonix Inj) 40 mg IVP DAILY [facility] Last Admin: 10/06/16 10:00 Dose: 40 mg Primidone (Mysoline) 50 mg PO DAILY [facility] Last Admin: 10/06/16 09:59 Dose: 50 mg Sertraline HCl (Zoloft) 25 mg PO HS [facility] Last Admin: 10/06/16 22:07 Dose: Not Given Sevelamer HCl (Renagel) 800 mg PO TID [facility] Last Admin: 10/06/16 18:10 Dose: 800 mg Warfarin Sodium (Coumadin) 7.5 mg PO 1800 [facility] PRN Reason: Protocol Last Admin: 10/06/16 18:09 Dose: 7.5 mg Zinc Sulfate (Zinc Sulfate 220 Mg Cap) 220 mg PO DAILY [facility] Last Admin: 10/06/16 10:01 Dose: 220 mg - Labs Labs: 10/06/16 08:00 10/07/16 07:40 PT 11.4 Seconds (9.9-11.8) 10/07/16 07:40 INR 1.06 (0.93-1.08) 10/07/16 07:40 APTT 44.6 Seconds (23.7-30.8) H 10/07/16 07:40 - Constitutional Appears: No Acute Distress, Chronically Ill - Extremities Exam Additional comments: Lower extremity focused exam: Right: Below knee amputation noted Left: Vasc: Non-palpable DP and PT pulses, CFT < 4 sec to all digits, TG wnl, no edema noted Neuro: Gross sensation diminished Derm: Superficial ulceration noted to posterior heel measuring approximately 0.5 cm by 0.6 cm. No drainage, no purulence, no malodor, no ascending cellulitis , no fluctuance, no probe to bone or other signs of infection noted Ortho: Mild pain on palpation to heel Assessment and Plan - Assessment and Plan (Free Text) Assessment: 66 year old female with diabetic left heel ulceration Plan: Patient examined and evaluated with attending Dr. Issa Chart, labs and vitals reviewed: afebrile, WBC 9.9 Left heel dressed with 4x4 and optifoam Multipodus boot reapplied to patients foot Patient to continue offloading the left heel while in bed Podiatry will continue to monitor while patient remains in house <Elmira Issa Addie - Last Filed: 10/13/16 17:16> Objective - Vital Signs/Intake and Output Vital Signs (last 24 hours): Temp Pulse Resp BP Pulse Ox 99.1 F 73 16 122/65 95 10/10/16 16:30 10/10/16 16:30 10/10/16 16:30 10/10/16 16:30 10/10/16 16:30 - Labs Labs: 10/10/16 08:00 10/10/16 08:00 PT 35.5 Seconds (9.9-11.8) H* 10/10/16 08:00 INR 3.29 (0.93-1.08) H 10/10/16 08:00 APTT 45.3 Seconds (23.7-30.8) H 10/10/16 08:00 Attending/Attestation - Attestation I have fully participated in the care of the patient.: Yes I have reviewed all pertinent clinical information, including history, physical exam and plan: Yes
--- NOTE | 2016-10-07 11:18 | CP.PCM.CON ---
History of Present Illness - History of Present Illness History of Present Illness: 66 year old female with PMH of Sepsis due to left sided healthcare-associated pneumonia, Left heel ulcer with evidence of acute osteomyelitis on bone scan, ESRD on HD, CAD S/P CABG, chronic CHF, DM, history of anti-phospholipid antibody syndrome, S/P right below the knee amputation was initially brought in to [facility] because of a fall from the wheelchair. She was also noted to have left lower extremity wound and ulcer and the patient has been having intermittent fevers the past 2 days while in the hospital. There is no note of diarrhea, no vomiting, no convulsions. Infectious diseases consult is requested to further evaluate and manage. Review of Systems - Review of Systems Systems not reviewed;Unavailable: Uncooperative Past Patient History - Infectious Disease Hx of Infectious Diseases: None - Tetanus Immunizations Tetanus Immunization: Unknown - Past Medical History & Family History Past Medical History?: Yes - Past Social History Smoking Status: Former Smoker - CARDIAC Hx Cardiac Disorders: Yes (CAD ,DVT) Hx Hypertension: Yes - PULMONARY Hx Respiratory Disorders: Yes - NEUROLOGICAL Hx Neurological Disorder: Yes Hx Dizziness: Yes (syncope) - HEENT Hx HEENT Problems: Yes Other/Comment: wear glasses,L ear [place] - RENAL Hx Chronic Kidney Disease: Yes Hx Dialysis: Yes ([facility] ,,[facility]) Date of Last Dialysis Treatment: 10/01/16 Hx Renal Failure: Yes - ENDOCRINE/METABOLIC Hx Endocrine Disorders: Yes Hx Diabetes Mellitus Type 2: Yes - HEMATOLOGICAL/ONCOLOGICAL Hx Blood Disorders: Yes - INTEGUMENTARY Hx Dermatological Problems: Yes Other/Comment: L great toe amputated,RT BKA - MUSCULOSKELETAL/RHEUMATOLOGICAL Hx Musculoskeletal Disorders: Yes Hx Falls: No Other/Comment: RT BKA - GASTROINTESTINAL Hx Gastrointestinal Disorders: Yes Hx Diverticulitis: Yes Hx Gastroesophageal Reflux: Yes Other/Comment: hx of c-diff - GENITOURINARY/GYNECOLOGICAL Hx Genitourinary Disorders: No - PSYCHIATRIC Hx Psychophysiologic Disorder: Yes Hx Anxiety: Yes Hx Depression: Yes Hx Substance Use: No - SURGICAL HISTORY Hx Amputation: Yes (L Great toe.RT BKA) Hx Coronary Artery Bypass Graft: Yes Hx Open Heart Surgery: Yes - ANESTHESIA Hx Anesthesia: Yes Hx Anesthesia Reactions: No Hx Malignant Hyperthermia: No Meds Allergies/Adverse Reactions: Allergies Allergy/AdvReac Type Severity Reaction Status Date / Time ciprofloxacin Allergy SWELLING Verified 10/01/16 17:12 clarithromycin [From Biaxin] Allergy SWELLING Verified 10/01/16 17:12 pepper Allergy SWELLING Verified 10/01/16 17:12 - Medications Medications: Current Medications Acetaminophen (Tylenol 650mg/20.3ml Solution Ud) 650 mg PO Q6H PRN PRN Reason: Temperature Last Admin: 10/05/16 06:40 Dose: 650 mg Acetaminophen (Tylenol 650 Mg Supp) 650 mg RC Q4H PRN PRN Reason: Fever >100.4 F Last Admin: 10/06/16 23:24 Dose: 650 mg Albuterol/Ipratropium (Duoneb 3 Mg/0.5 Mg (3 Ml) Ud) 3 ml IH Q4H PRN PRN Reason: Shortness of Breath Last Admin: 10/03/16 07:50 Dose: 3 ml Alprazolam (Xanax) 0.5 mg PO TID PRN PRN Reason: Anxiety Amiodarone HCl (Cordarone) 200 mg PO DAILY [facility] Last Admin: 10/06/16 09:56 Dose: 200 mg Amlodipine Besylate (Norvasc) 10 mg PO DAILY [facility] Last Admin: 10/06/16 10:00 Dose: 10 mg Aspirin (Ecotrin) 81 mg PO DAILY [facility] Last Admin: 10/06/16 09:57 Dose: 81 mg Atorvastatin Calcium (Lipitor) 80 mg PO DIN [facility] Last Admin: 10/06/16 18:09 Dose: 80 mg Carbidopa/Levodopa (Sinemet 10/100) 1 tab PO TID [facility] Last Admin: 10/06/16 18:10 Dose: 1 tab Carvedilol (Coreg) 6.25 mg PO Q12 [facility] Last Admin: 10/06/16 22:05 Dose: Not Given Clonidine HCl (Catapres) 0.3 mg PO Q8 [facility] Last Admin: 10/07/16 06:08 Dose: 0.3 mg Docusate Sodium (Colace) 100 mg PO DAILY [facility] Escitalopram Oxalate (Lexapro) 10 mg PO DAILY [facility] Last Admin: 10/06/16 09:57 Dose: 10 mg Gabapentin (Neurontin) 100 mg PO BID [facility] PRN Reason: Protocol Last Admin: 10/06/16 18:09 Dose: 100 mg Hydralazine HCl (Apresoline) 100 mg PO Q8H PRN PRN Reason: Systolic Blood Pressure Last Admin: 10/05/16 02:02 Dose: 100 mg Heparin Sodium/Dextrose (Heparin 25,000 Units/250ml In D5w) 25,000 units in 250 mls @ 8.399 mls/hr IV .Q24H PRN; Protocol; 12 UNITS/KG/HR PRN Reason: ADJUST RATE PER PROTOCOL Last Admin: 10/06/16 07:30 Dose: 12 units/kg/hr, 8.399 mls/hr Vancomycin HCl (Vancomycin 1gm) 1 gm in 250 mls @ 167 mls/hr IVPB STAT STA PRN Reason: Protocol Stop: 10/07/16 08:26 Piperacillin Sod/Tazobactam Sod (Zosyn 2.25 Gm In 0.9% 100 Ml) 2.25 gm in 100 mls @ 100 mls/hr IVPB Q8 [facility] PRN Reason: Protocol Stop: 10/07/16 14:59 Insulin Detemir (Levemir) 6 unit SC BID [facility] Last Admin: 10/06/16 18:09 Dose: 6 unit Insulin Human Lispro (Humalog High) 0 units SC ACHS [facility] PRN Reason: Protocol Last Admin: 10/06/16 22:05 Dose: Not Given Lisinopril (Zestril) 80 mg PO DAILY [facility] Last Admin: 10/06/16 10:01 Dose: 80 mg Morphine Sulfate (Morphine) 2 mg IVP Q4H PRN PRN Reason: Pain, severe (8-10) Ondansetron HCl (Zofran Inj) 4 mg IVP ONCE PRN PRN Reason: Nausea/Vomiting Oxycodone/Acetaminophen (Percocet 5/325 Mg Tab) 1 tab PO Q6H PRN PRN Reason: Pain, moderate (4-7) Stop: 10/09/16 14:51 Pantoprazole Sodium (Protonix Inj) 40 mg IVP DAILY [facility] Last Admin: 10/06/16 10:00 Dose: 40 mg Primidone (Mysoline) 50 mg PO DAILY [facility] Last Admin: 10/06/16 09:59 Dose: 50 mg Sertraline HCl (Zoloft) 25 mg PO HS [facility] Last Admin: 10/06/16 22:07 Dose: Not Given Sevelamer HCl (Renagel) 800 mg PO TID [facility] Last Admin: 10/06/16 18:10 Dose: 800 mg Warfarin Sodium (Coumadin) 7.5 mg PO 1800 [facility] PRN Reason: Protocol Last Admin: 10/06/16 18:09 Dose: 7.5 mg Zinc Sulfate (Zinc Sulfate 220 Mg Cap) 220 mg PO DAILY [facility] Last Admin: 10/06/16 10:01 Dose: 220 mg Physical Exam - Constitutional Appears: Non-toxic, No Acute Distress - Head Exam Head Exam: NORMAL INSPECTION - ENT Exam ENT Exam: Mucous Membranes Moist - Neck Exam Neck exam: Negative for: Meningismus - Respiratory Exam Respiratory Exam: Decreased Breath Sounds - Cardiovascular Exam Cardiovascular Exam: +S1, +S2 - GI/Abdominal Exam GI & Abdominal Exam: Soft. absent: Tenderness - Extremities Exam Additional comments: right BKA stump; left foot with dressings in place Results - Vital Signs Recent Vital Signs: Last Vital Signs Temp 98.9 F 10/07/16 06:00 Pulse 58 L 10/07/16 06:08 Resp 19 10/07/16 06:00 BP 167/55 H 10/07/16 06:08 Pulse Ox 100 10/07/16 06:00 - Labs Result Diagrams: 10/07/16 08:30 10/07/16 07:40 Labs: Laboratory Results - last 24 hr 10/06/16 10/06/16 10/06/16 07:18 08:00 08:00 WBC 9.9 RBC 3.23 L Hgb 8.8 L Hct 28.4 L MCV 87.9 MCH 27.2 MCHC 31.0 RDW 17.4 H Plt Count 217 MPV 10.8 Gran % 84.2 H Lymph % (Auto) 6.0 L Davison % (Auto) 8.8 H Eos % (Auto) 0.8 L Baso % (Auto) 0.2 Gran # 8.36 H Lymph # 0.6 L Davison # 0.9 H Eos # 0.1 Baso # 0.02 PT 10.7 INR 0.99 APTT 34.4 H pO2 VBG pH VBG pCO2 VBG HCO3 VBG Total CO2 VBG O2 Sat (Calc) VBG Base Excess VBG Potassium Glucose Lactate FiO2 Sodium Potassium Chloride Carbon Dioxide Anion Gap BUN Creatinine Est GFR ( Amer) Est GFR (Non-Af Amer) POC Glucose (mg/dL) 240 H Random Glucose Calcium Total Bilirubin AST ALT Alkaline Phosphatase Total Protein Albumin Globulin Albumin/Globulin Ratio Venous Blood Potassium 07/09/17 07/09/17 07/09/17 08:00 11:46 14:15 WBC RBC Hgb Hct MCV MCH MCHC RDW Plt Count MPV Gran % Lymph % (Auto) Davison % (Auto) Eos % (Auto) Baso % (Auto) Gran # Lymph # Davison # Eos # Baso # PT INR APTT 55.1 H pO2 VBG pH VBG pCO2 VBG HCO3 VBG Total CO2 VBG O2 Sat (Calc) VBG Base Excess VBG Potassium Glucose Lactate FiO2 Sodium 136 Potassium 4.5 Chloride 98 Carbon Dioxide 23 Anion Gap 20 BUN 46 H Creatinine 4.8 H Est GFR ( Amer) 11 Est GFR (Non-Af Amer) 9 POC Glucose (mg/dL) 304 H Random Glucose 237 H Calcium 9.7 Total Bilirubin 0.6 AST 35 ALT 13 Alkaline Phosphatase 158 H Total Protein 7.0 Albumin 3.6 Globulin 3.3 Albumin/Globulin Ratio 1.1 Venous Blood Potassium 10/06/16 10/06/16 10/06/16 16:01 20:15 21:31 WBC RBC Hgb Hct MCV MCH MCHC RDW Plt Count MPV Gran % Lymph % (Auto) Davison % (Auto) Eos % (Auto) Baso % (Auto) Gran # Lymph # Davison # Eos # Baso # PT INR APTT 72.0 H* pO2 VBG pH VBG pCO2 VBG HCO3 VBG Total CO2 VBG O2 Sat (Calc) VBG Base Excess VBG Potassium Glucose Lactate FiO2 Sodium Potassium Chloride Carbon Dioxide Anion Gap BUN Creatinine Est GFR ( Amer) Est GFR (Non-Af Amer) POC Glucose (mg/dL) 152 H 70 Random Glucose Calcium Total Bilirubin AST ALT Alkaline Phosphatase Total Protein Albumin Globulin Albumin/Globulin Ratio Venous Blood Potassium 10/07/16 10/07/16 00:01 00:35 WBC RBC Hgb Hct MCV MCH MCHC RDW Plt Count MPV Gran % Lymph % (Auto) Davison % (Auto) Eos % (Auto) Baso % (Auto) Gran # Lymph # Davison # Eos # Baso # PT INR APTT pO2 49 VBG pH 7.36 VBG pCO2 41.0 VBG HCO3 23.2 VBG Total CO2 24.5 VBG O2 Sat (Calc) 85.2 H VBG Base Excess -2.2 L VBG Potassium 4.4 Glucose 262 H Lactate 0.9 FiO2 21.0 Sodium 134.0 Potassium Chloride 104.0 Carbon Dioxide Anion Gap BUN Creatinine Est GFR ( Amer) Est GFR (Non-Af Amer) POC Glucose (mg/dL) 97 Random Glucose Calcium Total Bilirubin AST ALT Alkaline Phosphatase Total Protein Albumin Globulin Albumin/Globulin Ratio Venous Blood Potassium 4.4 Assessment & Plan - Assessment and Plan (Free Text) Plan: Assessment New onset fever, R/O sepsis; patient has left foot ulcer, which grew E. faecalis , E. coli and Pseudomonas history of sepsis due to left sided healthcare-associated pneumonia Left heel ulcer with evidence of acute osteomyelitis on bone scan ESRD on HD CAD S/P CABG chronic CHF DM history of anti-phospholipid antibody syndrome S/P right below the knee amputation Plan started patient on a dose of IV Vanco and started Zosyn pending repeat blood, urine cx, PCT, CXR; follow up Podiatry evaluation and plans for the left foot will monitor clinically
[2016-10-07] MEDS: Insulin Detemir 100 units/ml Vial (Levemir) SC SCH ×2 (12:18→17:53)
--- NOTE | 2016-10-07 12:32 | MRI ---
PROCEDURE: MRI BRAIN WITHOUT CONTRAST HISTORY: Altered mental status, right sided weakness COMPARISON: 07/22/2016 TECHNIQUE: Multiplanar, multisequence MR images of the brain were obtained without intravenous contrast enhancement. FINDINGS: HEMORRHAGE: None DWI: There is a single 2 mm acute cortical infarct in the left occipital lobe seen on diffusion image 11 of series 3. BRAIN PARENCHYMA: No mass effect or edema. No atrophy or chronic microvascular ischemic changes. VENTRICLES: Unremarkable. No hydrocephalus. CRANIUM: Unremarkable. ORBITS: Grossly unremarkable. PARANASAL SINUSES/MASTOIDS: Clear VASCULAR SYSTEM: Skull base flow voids intact. OTHER FINDINGS: None. 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
[2016-10-07] MEDS: Heparin 25,000units in D5W 25,000 UNITS/250 ML BAG IV PRN (13:52)
[2016-10-07] MEDS: Oxycodone/Acetaminophen 5/325 mg Tab PO PRN (13:52)
--- NOTE | 2016-10-07 18:51 | CP.PCM.PN ---
<VONDA HUGGINS - Last Filed: 10/07/16 18:44> Subjective - Date & Time of Evaluation Date of Evaluation: 10/07/16 Time of Evaluation: 06:45 - Subjective Subjective: Vonda Huggins D.O. PGY1 - Internal Medicine Progress Note - Carla/Harish Service Patient seen and examined at [facility]. No acute overnight events reported. Patient appears somnolent and confused, and stares blankly and is unable to answer questions. Patient is complaining of only mild pain in her right leg stump and right wrist, otherwise she denies any pain. Family reports that she appears confused, but is the most awake she has been since the surgery on Friday. Objective - Vital Signs/Intake and Output Vital Signs (last 24 hours): Temp Pulse Resp BP Pulse Ox 99.1 F 61 19 183/63 H 100 10/07/16 18:00 10/07/16 18:00 10/07/16 18:00 10/07/16 18:00 10/07/16 06:00 Intake and Output: 10/07/16 10/07/16 06:59 18:59 Intake Total 741 Balance 741 - Medications Medications: Current Medications Acetaminophen (Tylenol 650mg/20.3ml Solution Ud) 650 mg PO Q6H PRN PRN Reason: Temperature Last Admin: 10/05/16 06:40 Dose: 650 mg Acetaminophen (Tylenol 650 Mg Supp) 650 mg RC Q4H PRN PRN Reason: Fever >100.4 F Last Admin: 10/06/16 23:24 Dose: 650 mg Albuterol/Ipratropium (Duoneb 3 Mg/0.5 Mg (3 Ml) Ud) 3 ml IH Q4H PRN PRN Reason: Shortness of Breath Last Admin: 10/03/16 07:50 Dose: 3 ml Alprazolam (Xanax) 0.5 mg PO TID PRN PRN Reason: Anxiety Amiodarone HCl (Cordarone) 200 mg PO DAILY [facility] Last Admin: 10/07/16 17:50 Dose: 200 mg Amlodipine Besylate (Norvasc) 10 mg PO DAILY [facility] Last Admin: 10/07/16 17:51 Dose: 10 mg Aspirin (Ecotrin) 81 mg PO DAILY [facility] Last Admin: 10/07/16 17:51 Dose: 81 mg Atorvastatin Calcium (Lipitor) 80 mg PO DIN [facility] Last Admin: 10/07/16 17:48 Dose: 80 mg Carbidopa/Levodopa (Sinemet 10/100) 1 tab PO TID [facility] Last Admin: 10/07/16 17:49 Dose: 1 tab Carvedilol (Coreg) 6.25 mg PO Q12 [facility] Last Admin: 10/07/16 17:51 Dose: 6.25 mg Clonidine HCl (Catapres) 0.3 mg PO Q8 [facility] Last Admin: 10/07/16 13:50 Dose: 0.3 mg Docusate Sodium (Colace) 100 mg PO DAILY [facility] Last Admin: 10/07/16 10:47 Dose: Not Given Escitalopram Oxalate (Lexapro) 10 mg PO DAILY [facility] Last Admin: 10/07/16 17:50 Dose: 10 mg Folic Acid (Folic Acid) 1 mg PO DAILY [facility] Last Admin: 10/07/16 17:51 Dose: 1 mg Gabapentin (Neurontin) 100 mg PO BID [facility] PRN Reason: Protocol Last Admin: 10/07/16 17:49 Dose: 100 mg Hydralazine HCl (Apresoline) 100 mg PO Q8H PRN PRN Reason: Systolic Blood Pressure Last Admin: 10/05/16 02:02 Dose: 100 mg Piperacillin Sod/Tazobactam Sod (Zosyn 2.25 Gm In 0.9% 100 Ml) 2.25 gm in 100 mls @ 100 mls/hr IVPB Q8 [facility] PRN Reason: Protocol Stop: 10/14/16 07:01 Last Admin: 10/07/16 15:17 Dose: 100 mls/hr Heparin Sodium/Dextrose (Heparin 25,000 Units/250ml In D5w) 25,000 units in 250 mls @ 9.798 mls/hr IV .Q24H PRN; Protocol; 14 UNITS/KG/HR PRN Reason: ADJUST RATE PER PROTOCOL Last Admin: 10/07/16 13:52 Dose: 14 units/kg/hr, 9.798 mls/hr Insulin Detemir (Levemir) 6 unit SC BID [facility] Last Admin: 10/07/16 17:53 Dose: 6 unit Insulin Human Lispro (Humalog High) 0 units SC ACHS [facility] PRN Reason: Protocol Last Admin: 10/07/16 17:52 Dose: 2 units Lisinopril (Zestril) 80 mg PO DAILY [facility] Last Admin: 10/07/16 10:48 Dose: Not Given Ondansetron HCl (Zofran Inj) 4 mg IVP ONCE PRN PRN Reason: Nausea/Vomiting Oxycodone/Acetaminophen (Percocet 5/325 Mg Tab) 1 tab PO Q6H PRN PRN Reason: Pain, moderate (4-7) Stop: 10/09/16 14:51 Last Admin: 10/07/16 13:52 Dose: 1 tab Pantoprazole Sodium (Protonix Inj) 40 mg IVP DAILY [facility] Last Admin: 10/07/16 10:28 Dose: 40 mg Primidone (Mysoline) 50 mg PO DAILY [facility] Last Admin: 10/07/16 10:48 Dose: Not Given Sertraline HCl (Zoloft) 25 mg PO HS [facility] Last Admin: 10/06/16 22:07 Dose: Not Given Sevelamer HCl (Renagel) 800 mg PO TID [facility] Last Admin: 10/07/16 17:54 Dose: 800 mg Warfarin Sodium (Coumadin) 7.5 mg PO 1800 [facility] PRN Reason: Protocol Last Admin: 10/07/16 17:49 Dose: 7.5 mg Zinc Sulfate (Zinc Sulfate 220 Mg Cap) 220 mg PO DAILY [facility] Last Admin: 10/07/16 10:48 Dose: Not Given - Labs Labs: 10/07/16 08:30 10/07/16 07:40 PT 11.4 Seconds (9.9-11.8) 10/07/16 07:40 INR 1.06 (0.93-1.08) 10/07/16 07:40 APTT 44.6 Seconds (23.7-30.8) H 10/07/16 07:40 - Constitutional Appears: Well, No Acute Distress, Confused - Eye Exam Eye Exam: EOMI, Normal appearance - ENT Exam ENT Exam: Mucous Membranes Moist - Neck Exam Neck Exam: Full ROM, Normal Inspection - Respiratory Exam Respiratory Exam: Clear to Ausculation Bilateral. absent: Rales, Rhonchi, Wheezes - Cardiovascular Exam Cardiovascular Exam: RRR, +S1, +S2 - GI/Abdominal Exam GI & Abdominal Exam: Soft. absent: Tenderness - Extremities Exam Additional comments: Right BKA, splinted and wrapped, moderately tender tender. Left foot wrapped. - Neurological Exam Neurological Exam: Altered Neuro motor strength exam: Left Upper Extremity: 5, Right Upper Extremity: 4 Additional comments: Alert and oriented to person and place only - Psychiatric Exam Psychiatric exam: Flat Affect, Normal Mood - Skin Skin Exam: Dry, Intact Assessment and Plan - Assessment and Plan (Free Text) Assessment: 66 yo F with a PMH of Antiphospholipid syndrome, ESRD on Dialysis T/R/Sa, CAD/ CABG, IDDM, Depression, Seizure Disorder, GERD, CHF Systolic and Diastolic Dysfunction, Parkinsons Disease, past DVTs, s/p R BKA, s/p CABG who initially presented complaining of a fall. After the fall, daughter says that patient was confused, said strange things, but quickly regained orientation. XR on admission showed right femur fracture, now s/p ORIF. She is also being treated for diabetic foot ulcer. Today she also has altered mental status and right arm weakness. Plan: 1. Altered mental status and right sided weakness - Mental status has been altered since the surgery, difficult to differentiate acute alteration vs effects of anesthesia and narcotics - d/c dilaudid and morphine, but continue percocet, which is her normal home medication for pain - STAT brain MRI, significant for acute 2mm cortical infarct in left occipital lobe, not present on brain MRI in 06/2016 - Neurology (Milagros) on consult, recommended continue current medications, and observation - Several contraindications for tPA administration present, including recent head trauma, recent heparin administration, and hypertension - Ordered speech and swallow eval - Continue to monitor closely for any acute worsening in mental status or focal neurologic deficits 2. R femur fracture s/p witnessed mechanical fall - POD #3 ORIF with Ortho, doing well - Neurology Dr. Linares consulted - Cardio Dr. Mon consulted, appreciate all recs - Monitoring closely post op - Continue percocet for pain, d/c morphine due to altered mental status 3. Hx Antiphospholipid syndrome - Continue warfarin 7.5mg - Currently on heparin drip - Consult Heme/Onc Dr. Dozier, appreciate all recs 4. Anemia - Likely 2/2 blood loss from surgery and dilutional - Type and cross, then transfuse one unit PRBC today 5. ESRD on Dialysis - Nephro Dr. Eller consulted, appreciate all recs, cont HD - Continue Sevelamer - BUN and Cr stable 6. Hx CAD, CHF, HTN - Continue all home medications - Cardio Dr. Mon following 7. IDDM - Continue levimir 6u BID - Continue lispro sliding scale to high dose protocol - Continue accuchecks 8. Chronic LLE Ankle Ulcer - Wound Culture positive for pseudomonas - Podiatry Dr. Issa following, appreciate all recs - ID stopped cefipime, given one dose vancomyocin, and started IV zosyn 9. Hx Parkinsons disease - Continue home Carbidopa/Levodopa - Neuro (Ansalmi) recommends outpatient f/u 10. Hx Seizure Disorder - Continue home gabapentin and primidone 11. Hx of Depression and anxiety - Continue Escitalopram, Alprazolam, Sertraline 12. GERD - Continue home protonix GI/DVT ppx: protonix/heparin gtt Patient was seen and examined and case was discussed at length with attending Dr. Aguirre. <Wm Aguirre - Last Filed: 10/10/16 12:15> Objective - Vital Signs/Intake and Output Vital Signs (last 24 hours): Temp Pulse Resp BP Pulse Ox 99.5 F 59 L 18 188/67 H 96 10/10/16 07:34 10/10/16 07:34 10/10/16 07:34 10/10/16 07:34 10/10/16 07:34 Intake and Output: 10/10/16 10/10/16 06:59 18:59 Intake Total 100 Balance 100 - Medications Medications: Current Medications Acetaminophen (Tylenol 650mg/20.3ml Solution Ud) 650 mg PO Q6H PRN PRN Reason: Temperature Last Admin: 10/07/16 19:34 Dose: 650 mg Acetaminophen (Tylenol 650 Mg Supp) 650 mg RC Q4H PRN PRN Reason: Fever >100.4 F Last Admin: 10/06/16 23:24 Dose: 650 mg Albuterol/Ipratropium (Duoneb 3 Mg/0.5 Mg (3 Ml) Ud) 3 ml IH Q4H PRN PRN Reason: Shortness of Breath Last Admin: 10/03/16 07:50 Dose: 3 ml Alprazolam (Xanax) 0.5 mg PO TID PRN PRN Reason: Anxiety Amiodarone HCl (Cordarone) 200 mg PO DAILY [facility] Last Admin: 10/09/16 11:00 Dose: 200 mg Amlodipine Besylate (Norvasc) 10 mg PO DAILY [facility] Last Admin: 10/09/16 10:59 Dose: 10 mg Aspirin (Ecotrin) 81 mg PO DAILY [facility] Last Admin: 10/09/16 10:58 Dose: 81 mg Atorvastatin Calcium (Lipitor) 80 mg PO DIN [facility] Last Admin: 10/09/16 18:34 Dose: 80 mg Carbidopa/Levodopa (Sinemet 10/100) 1 tab PO TID [facility] Last Admin: 10/09/16 18:41 Dose: 1 tab Carvedilol (Coreg) 6.25 mg PO Q12 [facility] Last Admin: 10/09/16 21:15 Dose: Not Given Clonidine HCl (Catapres) 0.3 mg PO Q8 [facility] Last Admin: 10/10/16 05:18 Dose: 0.3 mg Docusate Sodium (Colace) 100 mg PO DAILY [facility] Last Admin: 10/09/16 11:03 Dose: 100 mg Escitalopram Oxalate (Lexapro) 10 mg PO DAILY [facility] Last Admin: 10/09/16 10:58 Dose: 10 mg Folic Acid (Folic Acid) 1 mg PO DAILY [facility] Last Admin: 10/09/16 10:58 Dose: 1 mg Gabapentin (Neurontin) 100 mg PO BID [facility] PRN Reason: Protocol Last Admin: 10/09/16 18:34 Dose: 100 mg Hydralazine HCl (Apresoline) 100 mg PO Q8H [facility] Last Admin: 10/10/16 02:49 Dose: 100 mg Piperacillin Sod/Tazobactam Sod (Zosyn 2.25 Gm In 0.9% 100 Ml) 2.25 gm in 100 mls @ 100 mls/hr IVPB Q8 [facility] PRN Reason: Protocol Stop: 10/14/16 07:01 Last Admin: 10/10/16 05:11 Dose: 100 mls/hr Insulin Detemir (Levemir) 6 unit SC BID [facility] Last Admin: 10/09/16 18:41 Dose: 6 unit Insulin Human Lispro (Humalog High) 0 units SC ACHS [facility] PRN Reason: Protocol Last Admin: 10/09/16 21:15 Dose: Not Given Lisinopril (Zestril) 80 mg PO DAILY [facility] Last Admin: 10/09/16 10:59 Dose: 80 mg Ondansetron HCl (Zofran Inj) 4 mg IVP ONCE PRN PRN Reason: Nausea/Vomiting Pantoprazole Sodium (Protonix Inj) 40 mg IVP DAILY [facility] Last Admin: 10/09/16 11:05 Dose: 40 mg Primidone (Mysoline) 50 mg PO DAILY [facility] Last Admin: 10/09/16 10:58 Dose: 50 mg Sertraline HCl (Zoloft) 25 mg PO HS [facility] Last Admin: 10/09/16 21:07 Dose: 25 mg Sevelamer HCl (Renagel) 800 mg PO TID [facility] Last Admin: 10/09/16 18:34 Dose: 800 mg Warfarin Sodium (Coumadin) 5 mg PO 1800 [facility] PRN Reason: Protocol Last Admin: 10/09/16 18:33 Dose: 5 mg Zinc Sulfate (Zinc Sulfate 220 Mg Cap) 220 mg PO DAILY [facility] Last Admin: 10/09/16 10:58 Dose: 220 mg - Labs Labs: 10/10/16 08:00 10/10/16 08:00 PT 35.5 Seconds (9.9-11.8) H* 10/10/16 08:00 INR 3.29 (0.93-1.08) H 10/10/16 08:00 APTT 45.3 Seconds (23.7-30.8) H 10/10/16 08:00 Attending/Attestation - Attestation I have personally seen and examined this patient.: Yes I have fully participated in the care of the patient.: Yes I have reviewed all pertinent clinical information, including history, physical exam and plan: Yes Notes (Text): 10/10/16 12:15 Medical record note made by resident after discussion with my direction and input after patient personally seen and examined by me. I have reviewed the chart and agree that the record accurately reflects my personal performance of the history, physical, data review and medical decision making for the course of this patient.
[2016-10-07] MEDS: Acetaminophen 650mg/20.3ml solution UD PO PRN (19:34)
[2016-10-08] MEDS: Insulin Lispro (HUMAlog) HIGH Coverage SC SCH ×5 (00:18→21:25)
[2016-10-08] MEDS: Piperacillin/Tazobact 2.25gm 2.25 GM/100 ML BAG IVPB SCH ×4 (00:23→21:14)
[2016-10-08 07:09] LABS: HEMOGLOBIN 9.3 gm/dL (12.0-16.0); MEAN CELL VOLUME 84.9 fL (80.0-105.0); MEAN CORPUSCULAR HGB CONC 31.8 g/dl (31.0-37.0); MEAN PLATELET VOLUME 11.1 fl (7.0-11.0); RBC 3.44 10^6/uL (3.5-6.1); RED CELL DISTRIBUTION WIDTH 17.4 % (11.5-14.5); WHITE BLOOD COUNT 8.4 10^3/ul (4.5-11.0)
[2016-10-08 07:19] LABS: INR 1.3 (0.93-1.08)
--- NOTE | 2016-10-08 09:00 | CP.PCM.PN ---
Subjective - Date & Time of Evaluation Date of Evaluation: 10/08/16 Time of Evaluation: 08:45 - Subjective Subjective: Pt states she feels fatigue. No CP/SOB Objective - Vital Signs/Intake and Output Vital Signs (last 24 hours): Temp Pulse Resp BP Pulse Ox 99.0 F 54 L 19 161/62 H 99 10/08/16 06:00 10/08/16 06:29 10/08/16 06:00 10/08/16 06:29 10/08/16 06:00 Intake and Output: 10/08/16 10/08/16 06:59 18:59 Intake Total 1252 Output Total 0 Balance 1252 - Medications Medications: Current Medications Acetaminophen (Tylenol 650mg/20.3ml Solution Ud) 650 mg PO Q6H PRN PRN Reason: Temperature Last Admin: 10/07/16 19:34 Dose: 650 mg Acetaminophen (Tylenol 650 Mg Supp) 650 mg RC Q4H PRN PRN Reason: Fever >100.4 F Last Admin: 10/06/16 23:24 Dose: 650 mg Albuterol/Ipratropium (Duoneb 3 Mg/0.5 Mg (3 Ml) Ud) 3 ml IH Q4H PRN PRN Reason: Shortness of Breath Last Admin: 10/03/16 07:50 Dose: 3 ml Alprazolam (Xanax) 0.5 mg PO TID PRN PRN Reason: Anxiety Amiodarone HCl (Cordarone) 200 mg PO DAILY [facility] Last Admin: 10/07/16 17:50 Dose: 200 mg Amlodipine Besylate (Norvasc) 10 mg PO DAILY [facility] Last Admin: 10/07/16 17:51 Dose: 10 mg Aspirin (Ecotrin) 81 mg PO DAILY [facility] Last Admin: 10/07/16 17:51 Dose: 81 mg Atorvastatin Calcium (Lipitor) 80 mg PO DIN [facility] Last Admin: 10/07/16 17:48 Dose: 80 mg Carbidopa/Levodopa (Sinemet 10/100) 1 tab PO TID [facility] Last Admin: 10/07/16 17:49 Dose: 1 tab Carvedilol (Coreg) 6.25 mg PO Q12 [facility] Last Admin: 10/08/16 00:17 Dose: Not Given Clonidine HCl (Catapres) 0.3 mg PO Q8 [facility] Last Admin: 10/08/16 06:29 Dose: 0.3 mg Docusate Sodium (Colace) 100 mg PO DAILY [facility] Last Admin: 10/07/16 10:47 Dose: Not Given Escitalopram Oxalate (Lexapro) 10 mg PO DAILY [facility] Last Admin: 10/07/16 17:50 Dose: 10 mg Folic Acid (Folic Acid) 1 mg PO DAILY [facility] Last Admin: 10/07/16 17:51 Dose: 1 mg Gabapentin (Neurontin) 100 mg PO BID [facility] PRN Reason: Protocol Last Admin: 10/07/16 17:49 Dose: 100 mg Hydralazine HCl (Apresoline) 100 mg PO Q8H PRN PRN Reason: Systolic Blood Pressure Last Admin: 10/07/16 19:33 Dose: 100 mg Piperacillin Sod/Tazobactam Sod (Zosyn 2.25 Gm In 0.9% 100 Ml) 2.25 gm in 100 mls @ 100 mls/hr IVPB Q8 [facility] PRN Reason: Protocol Stop: 10/14/16 07:01 Last Admin: 10/08/16 06:30 Dose: 100 mls/hr Heparin Sodium/Dextrose (Heparin 25,000 Units/250ml In D5w) 25,000 units in 250 mls @ 9.798 mls/hr IV .Q24H PRN; Protocol; 14 UNITS/KG/HR PRN Reason: ADJUST RATE PER PROTOCOL Last Titration: 10/07/16 20:42 Dose: 12 units/kg/hr, 8.399 mls/hr Insulin Detemir (Levemir) 6 unit SC BID [facility] Last Admin: 10/07/16 17:53 Dose: 6 unit Insulin Human Lispro (Humalog High) 0 units SC ACHS [facility] PRN Reason: Protocol Last Admin: 10/08/16 07:45 Dose: Not Given Lisinopril (Zestril) 80 mg PO DAILY [facility] Last Admin: 10/07/16 10:48 Dose: Not Given Ondansetron HCl (Zofran Inj) 4 mg IVP ONCE PRN PRN Reason: Nausea/Vomiting Oxycodone/Acetaminophen (Percocet 5/325 Mg Tab) 1 tab PO Q6H PRN PRN Reason: Pain, moderate (4-7) Stop: 10/09/16 14:51 Last Admin: 10/07/16 13:52 Dose: 1 tab Pantoprazole Sodium (Protonix Inj) 40 mg IVP DAILY [facility] Last Admin: 10/07/16 10:28 Dose: 40 mg Primidone (Mysoline) 50 mg PO DAILY [facility] Last Admin: 10/07/16 10:48 Dose: Not Given Sertraline HCl (Zoloft) 25 mg PO HS [facility] Last Admin: 10/08/16 00:23 Dose: 25 mg Sevelamer HCl (Renagel) 800 mg PO TID [facility] Last Admin: 10/07/16 17:54 Dose: 800 mg Warfarin Sodium (Coumadin) 7.5 mg PO 1800 [facility] PRN Reason: Protocol Last Admin: 10/07/16 17:49 Dose: 7.5 mg Zinc Sulfate (Zinc Sulfate 220 Mg Cap) 220 mg PO DAILY [facility] Last Admin: 10/07/16 10:48 Dose: Not Given - Labs Labs: 10/08/16 06:00 10/07/16 07:40 PT 14.0 Seconds (9.9-11.8) H 10/08/16 06:00 INR 1.30 (0.93-1.08) H 10/08/16 06:00 APTT 70.4 Seconds (23.7-30.8) H* 10/08/16 02:46 - Constitutional Appears: Well - Head Exam Head Exam: ATRAUMATIC, NORMAL INSPECTION, NORMOCEPHALIC - Eye Exam Eye Exam: EOMI, Normal appearance, PERRL Pupil Exam: NORMAL ACCOMODATION, PERRL - ENT Exam ENT Exam: Mucous Membranes Moist, Normal Exam - Neck Exam Neck Exam: Full ROM, Normal Inspection. absent: Lymphadenopathy - Respiratory Exam Respiratory Exam: Clear to Ausculation Bilateral, NORMAL BREATHING PATTERN - Cardiovascular Exam Cardiovascular Exam: REGULAR RHYTHM, +S1, +S2. absent: Murmur - GI/Abdominal Exam GI & Abdominal Exam: Normal Bowel Sounds. absent: Organomegaly, Pulsatile Mass - Skin Skin Exam: Normal Color Assessment and Plan - Assessment and Plan (Free Text) Assessment: 1.) L Occipital CVA 2.) Fraility 3.) ESRD on Dialysis 4.) CAD s/p CABG 5.) DM-2 6.) PAD 7.) Parkinsons 8.) GERD 9.) Depression, Anxiety 10.) Antiphospholipid syndrome 11.) DVT 12) HTN 13) Secondary hyperparathyroidism 14) Chronic Anemia 15) R BKA 16) L femoral bypass 17) R Femur fracture s/p surgery Plan: Pt for HD today. Aranesp 100mg today for anemia. Pt was given transfusion yesterday. Will need PT. On HTN meds, continue meds. Renal diet. On Lipitor for dyslipidemia. She will be placed on Coumadin. MRI of brain reviewed.
[2016-10-08] MEDS: Insulin Detemir 100 units/ml Vial (Levemir) SC SCH ×2 (10:28→17:52)
--- NOTE | 2016-10-08 11:27 | CP.PCM.PN ---
Subjective - Date & Time of Evaluation Date of Evaluation: 10/08/16 Time of Evaluation: 10:25 - Subjective Subjective: Patient is comfortable, more awake and alert today, no fevers overnight. Objective - Vital Signs/Intake and Output Vital Signs (last 24 hours): Temp Pulse Resp BP Pulse Ox 99.0 F 51 L 19 161/62 H 99 10/08/16 06:00 10/08/16 06:00 10/08/16 06:00 10/08/16 06:00 10/08/16 06:00 Intake and Output: 10/07/16 10/08/16 18:59 06:59 Intake Total 468 Output Total 0 Balance 468 - Medications Medications: Current Medications Acetaminophen (Tylenol 650mg/20.3ml Solution Ud) 650 mg PO Q6H PRN PRN Reason: Temperature Last Admin: 10/07/16 19:34 Dose: 650 mg Acetaminophen (Tylenol 650 Mg Supp) 650 mg RC Q4H PRN PRN Reason: Fever >100.4 F Last Admin: 10/06/16 23:24 Dose: 650 mg Albuterol/Ipratropium (Duoneb 3 Mg/0.5 Mg (3 Ml) Ud) 3 ml IH Q4H PRN PRN Reason: Shortness of Breath Last Admin: 10/03/16 07:50 Dose: 3 ml Alprazolam (Xanax) 0.5 mg PO TID PRN PRN Reason: Anxiety Amiodarone HCl (Cordarone) 200 mg PO DAILY [facility] Last Admin: 10/07/16 17:50 Dose: 200 mg Amlodipine Besylate (Norvasc) 10 mg PO DAILY [facility] Last Admin: 10/07/16 17:51 Dose: 10 mg Aspirin (Ecotrin) 81 mg PO DAILY [facility] Last Admin: 10/07/16 17:51 Dose: 81 mg Atorvastatin Calcium (Lipitor) 80 mg PO DIN [facility] Last Admin: 10/07/16 17:48 Dose: 80 mg Carbidopa/Levodopa (Sinemet 10/100) 1 tab PO TID [facility] Last Admin: 10/07/16 17:49 Dose: 1 tab Carvedilol (Coreg) 6.25 mg PO Q12 [facility] Last Admin: 10/08/16 00:17 Dose: Not Given Clonidine HCl (Catapres) 0.3 mg PO Q8 [facility] Last Admin: 10/08/16 00:23 Dose: 0.3 mg Docusate Sodium (Colace) 100 mg PO DAILY [facility] Last Admin: 10/07/16 10:47 Dose: Not Given Escitalopram Oxalate (Lexapro) 10 mg PO DAILY [facility] Last Admin: 10/07/16 17:50 Dose: 10 mg Folic Acid (Folic Acid) 1 mg PO DAILY [facility] Last Admin: 10/07/16 17:51 Dose: 1 mg Gabapentin (Neurontin) 100 mg PO BID [facility] PRN Reason: Protocol Last Admin: 10/07/16 17:49 Dose: 100 mg Hydralazine HCl (Apresoline) 100 mg PO Q8H PRN PRN Reason: Systolic Blood Pressure Last Admin: 10/07/16 19:33 Dose: 100 mg Piperacillin Sod/Tazobactam Sod (Zosyn 2.25 Gm In 0.9% 100 Ml) 2.25 gm in 100 mls @ 100 mls/hr IVPB Q8 [facility] PRN Reason: Protocol Stop: 10/14/16 07:01 Last Admin: 10/08/16 00:23 Dose: 100 mls/hr Heparin Sodium/Dextrose (Heparin 25,000 Units/250ml In D5w) 25,000 units in 250 mls @ 9.798 mls/hr IV .Q24H PRN; Protocol; 14 UNITS/KG/HR PRN Reason: ADJUST RATE PER PROTOCOL Last Titration: 10/07/16 20:42 Dose: 12 units/kg/hr, 8.399 mls/hr Insulin Detemir (Levemir) 6 unit SC BID [facility] Last Admin: 10/07/16 17:53 Dose: 6 unit Insulin Human Lispro (Humalog High) 0 units SC ACHS [facility] PRN Reason: Protocol Last Admin: 10/08/16 00:18 Dose: Not Given Lisinopril (Zestril) 80 mg PO DAILY [facility] Last Admin: 10/07/16 10:48 Dose: Not Given Ondansetron HCl (Zofran Inj) 4 mg IVP ONCE PRN PRN Reason: Nausea/Vomiting Oxycodone/Acetaminophen (Percocet 5/325 Mg Tab) 1 tab PO Q6H PRN PRN Reason: Pain, moderate (4-7) Stop: 10/09/16 14:51 Last Admin: 10/07/16 13:52 Dose: 1 tab Pantoprazole Sodium (Protonix Inj) 40 mg IVP DAILY [facility] Last Admin: 10/07/16 10:28 Dose: 40 mg Primidone (Mysoline) 50 mg PO DAILY [facility] Last Admin: 10/07/16 10:48 Dose: Not Given Sertraline HCl (Zoloft) 25 mg PO HS [facility] Last Admin: 10/08/16 00:23 Dose: 25 mg Sevelamer HCl (Renagel) 800 mg PO TID [facility] Last Admin: 10/07/16 17:54 Dose: 800 mg Warfarin Sodium (Coumadin) 7.5 mg PO 1800 [facility] PRN Reason: Protocol Last Admin: 10/07/16 17:49 Dose: 7.5 mg Zinc Sulfate (Zinc Sulfate 220 Mg Cap) 220 mg PO DAILY [facility] Last Admin: 10/07/16 10:48 Dose: Not Given - Labs Labs: 10/07/16 08:30 10/07/16 07:40 PT 11.4 Seconds (9.9-11.8) 10/07/16 07:40 INR 1.06 (0.93-1.08) 10/07/16 07:40 APTT 70.4 Seconds (23.7-30.8) H* 10/08/16 02:46 - Constitutional Appears: Non-toxic, No Acute Distress - Head Exam Head Exam: NORMAL INSPECTION - ENT Exam ENT Exam: Mucous Membranes Moist - Neck Exam Neck Exam: absent: Meningismus - Respiratory Exam Respiratory Exam: Decreased Breath Sounds - Cardiovascular Exam Cardiovascular Exam: +S1, +S2 - GI/Abdominal Exam GI & Abdominal Exam: Soft. absent: Tenderness Assessment and Plan - Assessment and Plan (Free Text) Plan: Assessment New onset fever, so far no evidence of new onset sepsis; patient has left foot ulcer, which grew E. faecalis, E. coli and Pseudomonas acute left occipital lobe infarct history of sepsis due to left sided healthcare-associated pneumonia Left heel ulcer with evidence of acute osteomyelitis on bone scan on 07/2016 ESRD on HD CAD S/P CABG chronic CHF DM history of anti-phospholipid antibody syndrome S/P right below the knee amputation Plan continue Zosyn; repeat blood are negative; PCT is elevated but the patient has chronic renal failure, CXR; follow up Podiatry evaluation and plans for the left foot will continue to monitor clinically
[2016-10-08 11:28] LABS: ALBUMIN 3.2 g/dL (3.0-4.8); CALCIUM 8.8 mg/dL (8.4-10.5); MAGNESIUM 2.3 mg/dL (1.7-2.2)
--- NOTE | 2016-10-08 11:32 | CP.PCM.PN ---
<Nelai Jacobs - Last Filed: 10/08/16 11:33> Subjective - Date & Time of Evaluation Date of Evaluation: 10/08/16 Time of Evaluation: 11:29 - Subjective Subjective: PGY-[address] Dozier Fever 2 days ago. Afebrile today on warfarin bridging heparin. s/p 1u prbc NPO pending speech eval MRI showed solidary 2 mm acute cortical infarct L occipital lobe no acute complaint Objective - Vital Signs/Intake and Output Vital Signs (last 24 hours): Temp Pulse Resp BP Pulse Ox 99.0 F 54 L 19 161/62 H 99 10/08/16 06:00 10/08/16 06:29 10/08/16 06:00 10/08/16 06:29 10/08/16 06:00 Intake and Output: 10/08/16 10/08/16 06:59 18:59 Intake Total 1252 Output Total 0 Balance 1252 - Medications Medications: Current Medications Acetaminophen (Tylenol 650mg/20.3ml Solution Ud) 650 mg PO Q6H PRN PRN Reason: Temperature Last Admin: 10/07/16 19:34 Dose: 650 mg Acetaminophen (Tylenol 650 Mg Supp) 650 mg RC Q4H PRN PRN Reason: Fever >100.4 F Last Admin: 10/06/16 23:24 Dose: 650 mg Albuterol/Ipratropium (Duoneb 3 Mg/0.5 Mg (3 Ml) Ud) 3 ml IH Q4H PRN PRN Reason: Shortness of Breath Last Admin: 10/03/16 07:50 Dose: 3 ml Alprazolam (Xanax) 0.5 mg PO TID PRN PRN Reason: Anxiety Amiodarone HCl (Cordarone) 200 mg PO DAILY [facility] Last Admin: 10/07/16 17:50 Dose: 200 mg Amlodipine Besylate (Norvasc) 10 mg PO DAILY [facility] Last Admin: 10/07/16 17:51 Dose: 10 mg Aspirin (Ecotrin) 81 mg PO DAILY [facility] Last Admin: 10/07/16 17:51 Dose: 81 mg Atorvastatin Calcium (Lipitor) 80 mg PO DIN [facility] Last Admin: 10/07/16 17:48 Dose: 80 mg Carbidopa/Levodopa (Sinemet 10/100) 1 tab PO TID [facility] Last Admin: 10/08/16 10:28 Dose: Not Given Carvedilol (Coreg) 6.25 mg PO Q12 [facility] Last Admin: 10/08/16 10:28 Dose: Not Given Clonidine HCl (Catapres) 0.3 mg PO Q8 [facility] Last Admin: 10/08/16 06:29 Dose: 0.3 mg Docusate Sodium (Colace) 100 mg PO DAILY [facility] Last Admin: 10/07/16 10:47 Dose: Not Given Escitalopram Oxalate (Lexapro) 10 mg PO DAILY [facility] Last Admin: 10/07/16 17:50 Dose: 10 mg Folic Acid (Folic Acid) 1 mg PO DAILY [facility] Last Admin: 10/07/16 17:51 Dose: 1 mg Gabapentin (Neurontin) 100 mg PO BID [facility] PRN Reason: Protocol Last Admin: 10/08/16 10:28 Dose: Not Given Hydralazine HCl (Apresoline) 100 mg PO Q8H PRN PRN Reason: Systolic Blood Pressure Last Admin: 10/07/16 19:33 Dose: 100 mg Piperacillin Sod/Tazobactam Sod (Zosyn 2.25 Gm In 0.9% 100 Ml) 2.25 gm in 100 mls @ 100 mls/hr IVPB Q8 [facility] PRN Reason: Protocol Stop: 10/14/16 07:01 Last Admin: 10/08/16 06:30 Dose: 100 mls/hr Heparin Sodium/Dextrose (Heparin 25,000 Units/250ml In D5w) 25,000 units in 250 mls @ 9.798 mls/hr IV .Q24H PRN; Protocol; 14 UNITS/KG/HR PRN Reason: ADJUST RATE PER PROTOCOL Last Titration: 10/07/16 20:42 Dose: 12 units/kg/hr, 8.399 mls/hr Insulin Detemir (Levemir) 6 unit SC BID [facility] Last Admin: 10/08/16 10:28 Dose: Not Given Insulin Human Lispro (Humalog High) 0 units SC ACHS [facility] PRN Reason: Protocol Last Admin: 10/08/16 07:45 Dose: Not Given Lisinopril (Zestril) 80 mg PO DAILY [facility] Last Admin: 10/07/16 10:48 Dose: Not Given Ondansetron HCl (Zofran Inj) 4 mg IVP ONCE PRN PRN Reason: Nausea/Vomiting Oxycodone/Acetaminophen (Percocet 5/325 Mg Tab) 1 tab PO Q6H PRN PRN Reason: Pain, moderate (4-7) Stop: 10/09/16 14:51 Last Admin: 10/07/16 13:52 Dose: 1 tab Pantoprazole Sodium (Protonix Inj) 40 mg IVP DAILY [facility] Last Admin: 10/07/16 10:28 Dose: 40 mg Primidone (Mysoline) 50 mg PO DAILY [facility] Last Admin: 10/07/16 10:48 Dose: Not Given Sertraline HCl (Zoloft) 25 mg PO HS [facility] Last Admin: 10/08/16 00:23 Dose: 25 mg Sevelamer HCl (Renagel) 800 mg PO TID [facility] Last Admin: 10/08/16 10:28 Dose: Not Given Warfarin Sodium (Coumadin) 7.5 mg PO 1800 [facility] PRN Reason: Protocol Last Admin: 10/07/16 17:49 Dose: 7.5 mg Zinc Sulfate (Zinc Sulfate 220 Mg Cap) 220 mg PO DAILY [facility] Last Admin: 10/07/16 10:48 Dose: Not Given - Labs Labs: 10/08/16 06:00 10/07/16 07:40 PT 14.0 Seconds (9.9-11.8) H 10/08/16 06:00 INR 1.30 (0.93-1.08) H 10/08/16 06:00 APTT 70.4 Seconds (23.7-30.8) H* 10/08/16 02:46 - Constitutional Appears: No Acute Distress - Head Exam Head Exam: NORMOCEPHALIC Additional comments: abrasion healing well - Eye Exam Eye Exam: EOMI, Normal appearance, PERRL. absent: Scleral icterus - ENT Exam ENT Exam: Mucous Membranes Moist - Neck Exam Neck Exam: Normal Inspection - Respiratory Exam Respiratory Exam: Clear to Ausculation Bilateral. absent: Rales, Rhonchi, Wheezes - Cardiovascular Exam Cardiovascular Exam: REGULAR RHYTHM, +S1, +S2 - GI/Abdominal Exam GI & Abdominal Exam: Soft, Normal Bowel Sounds. absent: Guarding, Tenderness - Extremities Exam Extremities Exam: Normal Capillary Refill, Pedal Edema (slight). absent: Calf Tenderness - Neurological Exam Neurological Exam: Alert, Awake - Psychiatric Exam Psychiatric exam: Normal Affect, Normal Mood - Skin Skin Exam: Dry, Warm Assessment and Plan - Assessment and Plan (Free Text) Plan: 66 years old female with ESRD on HD has Hx of DVTs, Antiphospholipid syndrome, PAD, questionable seizure Hx, has a high risk to venous and arterial thromboembolic events. Pt has coumadin coagulopathy. Pt sustained R femur fracture, and underwent ORIF with nail. Pt has cellulitis. Pt has delirium Stroke - solidary 2 mm acute cortical infarct L occipital lobe - PT/OT/ST/swallow eval Antiphospholipid syndrome - hepatitis antibody titer negative - anticarlipin antibody POS - 12/18/2001: Factor II level 52% Factor V level was 28% (nl: 60-440) Factor V Leiden negative Factor XIII was 144 (n; 50-150) - Confirm: Hexagonal phospholipid titer value 11.8 sec (nl: up to 8) Anticoagulation Tx - No signs of fat embolism/DVT - ASA 81 - consider Restart coumadin 7.5 with Goal INR from 2-3 - heparin bridge ESRD on HD L foot wound culture - left foot ulcer, which grew E. faecalis, E. coli and Pseudomonas Left heel ulcer with evidence of acute osteomyelitis on bone scan - zosyn Nomocytic anemia - Aranesp 60mg on HD but will increase to 100mg. - s/p 1u prbc Other imagin-99% stenosis in proximal R SFA Echo: EF 40. RVSP 64 severe tricuspid regurg S/R/D/w Dr. Dozier <Marcial Dozier P - Last Filed: 10/10/16 20:00> Objective - Vital Signs/Intake and Output Vital Signs (last 24 hours): Temp Pulse Resp BP Pulse Ox 99.1 F 73 16 122/65 95 10/10/16 16:30 10/10/16 16:30 10/10/16 16:30 10/10/16 16:30 10/10/16 16:30 Intake and Output: 10/10/16 10/11/16 18:59 06:59 Intake Total 240 Output Total 0 Balance 240 - Labs Labs: 10/10/16 08:00 10/10/16 08:00 PT 35.5 Seconds (9.9-11.8) H* 10/10/16 08:00 INR 3.29 (0.93-1.08) H 10/10/16 08:00 APTT 45.3 Seconds (23.7-30.8) H 10/10/16 08:00 Attending/Attestation - Attestation I have personally seen and examined this patient.: Yes I have fully participated in the care of the patient.: Yes I have reviewed all pertinent clinical information, including history, physical exam and plan: Yes
--- NOTE | 2016-10-08 13:23 | CP.PCM.PN ---
<Angelica Dominguez - Last Filed: 10/08/16 16:09> Subjective - Date & Time of Evaluation Date of Evaluation: 10/08/16 Time of Evaluation: 13:20 - Subjective Subjective: PGY-2 Neurology progress note for Dr Linares. Patient is more verbal today. Patient answering questions using single words. Patient admits to pain in the right lower extremities. Denies headache, dizziness, denies visual changes. S/p HD. Objective - Vital Signs/Intake and Output Vital Signs (last 24 hours): Temp Pulse Resp BP Pulse Ox 99.0 F 54 L 19 161/62 H 99 10/08/16 06:00 10/08/16 06:29 10/08/16 06:00 10/08/16 06:29 10/08/16 06:00 Intake and Output: 10/08/16 10/08/16 06:59 18:59 Intake Total 1252 Output Total 0 Balance 1252 - Medications Medications: Current Medications Acetaminophen (Tylenol 650mg/20.3ml Solution Ud) 650 mg PO Q6H PRN PRN Reason: Temperature Last Admin: 10/07/16 19:34 Dose: 650 mg Acetaminophen (Tylenol 650 Mg Supp) 650 mg RC Q4H PRN PRN Reason: Fever >100.4 F Last Admin: 10/06/16 23:24 Dose: 650 mg Albuterol/Ipratropium (Duoneb 3 Mg/0.5 Mg (3 Ml) Ud) 3 ml IH Q4H PRN PRN Reason: Shortness of Breath Last Admin: 10/03/16 07:50 Dose: 3 ml Alprazolam (Xanax) 0.5 mg PO TID PRN PRN Reason: Anxiety Amiodarone HCl (Cordarone) 200 mg PO DAILY [facility] Last Admin: 10/07/16 17:50 Dose: 200 mg Amlodipine Besylate (Norvasc) 10 mg PO DAILY [facility] Last Admin: 10/07/16 17:51 Dose: 10 mg Aspirin (Ecotrin) 81 mg PO DAILY [facility] Last Admin: 10/07/16 17:51 Dose: 81 mg Atorvastatin Calcium (Lipitor) 80 mg PO DIN [facility] Last Admin: 10/07/16 17:48 Dose: 80 mg Carbidopa/Levodopa (Sinemet 10/100) 1 tab PO TID [facility] Last Admin: 10/08/16 10:28 Dose: Not Given Carvedilol (Coreg) 6.25 mg PO Q12 [facility] Last Admin: 10/08/16 10:28 Dose: Not Given Clonidine HCl (Catapres) 0.3 mg PO Q8 [facility] Last Admin: 10/08/16 06:29 Dose: 0.3 mg Docusate Sodium (Colace) 100 mg PO DAILY [facility] Last Admin: 10/07/16 10:47 Dose: Not Given Escitalopram Oxalate (Lexapro) 10 mg PO DAILY [facility] Last Admin: 10/07/16 17:50 Dose: 10 mg Folic Acid (Folic Acid) 1 mg PO DAILY [facility] Last Admin: 10/07/16 17:51 Dose: 1 mg Gabapentin (Neurontin) 100 mg PO BID [facility] PRN Reason: Protocol Last Admin: 10/08/16 10:28 Dose: Not Given Hydralazine HCl (Apresoline) 100 mg PO Q8H PRN PRN Reason: Systolic Blood Pressure Last Admin: 10/07/16 19:33 Dose: 100 mg Piperacillin Sod/Tazobactam Sod (Zosyn 2.25 Gm In 0.9% 100 Ml) 2.25 gm in 100 mls @ 100 mls/hr IVPB Q8 [facility] PRN Reason: Protocol Stop: 10/14/16 07:01 Last Admin: 10/08/16 06:30 Dose: 100 mls/hr Heparin Sodium/Dextrose (Heparin 25,000 Units/250ml In D5w) 25,000 units in 250 mls @ 9.798 mls/hr IV .Q24H PRN; Protocol; 14 UNITS/KG/HR PRN Reason: ADJUST RATE PER PROTOCOL Last Titration: 10/07/16 20:42 Dose: 12 units/kg/hr, 8.399 mls/hr Insulin Detemir (Levemir) 6 unit SC BID [facility] Last Admin: 10/08/16 10:28 Dose: Not Given Insulin Human Lispro (Humalog High) 0 units SC ACHS [facility] PRN Reason: Protocol Last Admin: 10/08/16 07:45 Dose: Not Given Lisinopril (Zestril) 80 mg PO DAILY [facility] Last Admin: 10/07/16 10:48 Dose: Not Given Ondansetron HCl (Zofran Inj) 4 mg IVP ONCE PRN PRN Reason: Nausea/Vomiting Oxycodone/Acetaminophen (Percocet 5/325 Mg Tab) 1 tab PO Q6H PRN PRN Reason: Pain, moderate (4-7) Stop: 10/09/16 14:51 Last Admin: 10/07/16 13:52 Dose: 1 tab Pantoprazole Sodium (Protonix Inj) 40 mg IVP DAILY [facility] Last Admin: 10/07/16 10:28 Dose: 40 mg Primidone (Mysoline) 50 mg PO DAILY [facility] Last Admin: 10/07/16 10:48 Dose: Not Given Sertraline HCl (Zoloft) 25 mg PO HS [facility] Last Admin: 10/08/16 00:23 Dose: 25 mg Sevelamer HCl (Renagel) 800 mg PO TID [facility] Last Admin: 10/08/16 10:28 Dose: Not Given Warfarin Sodium (Coumadin) 7.5 mg PO 1800 [facility] PRN Reason: Protocol Last Admin: 10/07/16 17:49 Dose: 7.5 mg Zinc Sulfate (Zinc Sulfate 220 Mg Cap) 220 mg PO DAILY [facility] Last Admin: 10/07/16 10:48 Dose: Not Given - Labs Labs: 10/08/16 06:00 10/08/16 11:00 PT 14.0 Seconds (9.9-11.8) H 10/08/16 06:00 INR 1.30 (0.93-1.08) H 10/08/16 06:00 APTT 54.1 Seconds (23.7-30.8) H 10/08/16 06:30 - Constitutional Appears: No Acute Distress, Older Than Stated Age, Chronically Ill - Head Exam Head Exam: NORMAL INSPECTION, NORMOCEPHALIC. absent: ATRAUMATIC (right brown with laceration ) - Eye Exam Eye Exam: EOMI, Normal appearance, PERRL. absent: Scleral icterus - ENT Exam ENT Exam: Mucous Membranes Moist - Neck Exam Neck Exam: Full ROM, Normal Inspection - Respiratory Exam Respiratory Exam: Clear to Ausculation Bilateral, NORMAL BREATHING PATTERN. absent: Rales, Rhonchi, Wheezes, Respiratory Distress, Stridor - Cardiovascular Exam Cardiovascular Exam: REGULAR RHYTHM, +S1, +S2 - GI/Abdominal Exam GI & Abdominal Exam: Soft, Normal Bowel Sounds. absent: Distended - Extremities Exam Extremities Exam: absent: Pedal Edema - Neurological Exam Neurological Exam: Alert, Awake Neuro motor strength exam: Left Upper Extremity: 4, Right Upper Extremity: 4, Left Lower Extremity: 4, Right Lower Extremity: 0 (unbale to assess, bka, orif) Additional comments: DTRs +2 throughout in the left lower and b/l upper extremities. + tremors in b/ l upper extremities. + muscle rigidity. Coordination: finger to nose. + mild dysarthria, - Psychiatric Exam Psychiatric exam: Flat Affect - Skin Skin Exam: Dry, Warm Assessment and Plan - Assessment and Plan (Free Text) Assessment: Patient is a Parkinson disease, diabetic foot ulcers s/p BKA of the right LE, osteomyolitis of the left toe s/p treatments, ESRD on HD, CAD s/p CABG, IDDM2, Antiphospholipid syndrome, h/o DVTs on Coumadin, depression, Seizure Disorder, GERD, CHF, prior h/o fall presenting s/p fall at home with fracture of the right bka stump. Neurology is following patient for Parkinson disease and left occipital infarct. Pending MRA of the neck. Mental status improved. Plan: - will f/u with MRA of the neck - continue asa, and Lipitor - PT/OT. - EEG as outpatient - Parkinson eval as outpatient. Patient seen, and examined, will discuss with Dr Linares. <Fuad Linares - Last Filed: 10/09/16 12:11> Objective - Vital Signs/Intake and Output Vital Signs (last 24 hours): Temp Pulse Resp BP Pulse Ox 98.3 F 53 L 19 174/66 H 98 10/09/16 11:47 10/09/16 11:47 10/09/16 11:47 10/09/16 11:47 10/09/16 06:00 Intake and Output: 10/09/16 10/09/16 06:59 18:59 Intake Total 781 Output Total 400 Balance 381 - Medications Medications: Current Medications Acetaminophen (Tylenol 650mg/20.3ml Solution Ud) 650 mg PO Q6H PRN PRN Reason: Temperature Last Admin: 10/07/16 19:34 Dose: 650 mg Acetaminophen (Tylenol 650 Mg Supp) 650 mg RC Q4H PRN PRN Reason: Fever >100.4 F Last Admin: 10/06/16 23:24 Dose: 650 mg Albuterol/Ipratropium (Duoneb 3 Mg/0.5 Mg (3 Ml) Ud) 3 ml IH Q4H PRN PRN Reason: Shortness of Breath Last Admin: 10/03/16 07:50 Dose: 3 ml Alprazolam (Xanax) 0.5 mg PO TID PRN PRN Reason: Anxiety Amiodarone HCl (Cordarone) 200 mg PO DAILY [facility] Last Admin: 10/09/16 11:00 Dose: 200 mg Amlodipine Besylate (Norvasc) 10 mg PO DAILY [facility] Last Admin: 10/09/16 10:59 Dose: 10 mg Aspirin (Ecotrin) 81 mg PO DAILY [facility] Last Admin: 10/09/16 10:58 Dose: 81 mg Atorvastatin Calcium (Lipitor) 80 mg PO DIN [facility] Last Admin: 10/08/16 17:52 Dose: 80 mg Carbidopa/Levodopa (Sinemet 10/100) 1 tab PO TID [facility] Last Admin: 10/09/16 10:58 Dose: 1 tab Carvedilol (Coreg) 6.25 mg PO Q12 [facility] Last Admin: 10/09/16 11:01 Dose: Not Given Clonidine HCl (Catapres) 0.3 mg PO Q8 [facility] Last Admin: 10/09/16 05:41 Dose: 0.3 mg Docusate Sodium (Colace) 100 mg PO DAILY [facility] Last Admin: 10/09/16 11:03 Dose: 100 mg Escitalopram Oxalate (Lexapro) 10 mg PO DAILY [facility] Last Admin: 10/09/16 10:58 Dose: 10 mg Folic Acid (Folic Acid) 1 mg PO DAILY [facility] Last Admin: 10/09/16 10:58 Dose: 1 mg Gabapentin (Neurontin) 100 mg PO BID [facility] PRN Reason: Protocol Last Admin: 10/09/16 10:58 Dose: 100 mg Hydralazine HCl (Apresoline) 100 mg PO Q8H [facility] Last Admin: 10/09/16 11:24 Dose: Not Given Piperacillin Sod/Tazobactam Sod (Zosyn 2.25 Gm In 0.9% 100 Ml) 2.25 gm in 100 mls @ 100 mls/hr IVPB Q8 [facility] PRN Reason: Protocol Stop: 10/14/16 07:01 Last Admin: 10/09/16 05:41 Dose: 100 mls/hr Insulin Detemir (Levemir) 6 unit SC BID [facility] Last Admin: 10/09/16 11:02 Dose: 6 unit Insulin Human Lispro (Humalog High) 0 units SC ACHS [facility] PRN Reason: Protocol Last Admin: 10/09/16 08:49 Dose: 4 units Lisinopril (Zestril) 80 mg PO DAILY [facility] Last Admin: 10/09/16 10:59 Dose: 80 mg Ondansetron HCl (Zofran Inj) 4 mg IVP ONCE PRN PRN Reason: Nausea/Vomiting Oxycodone/Acetaminophen (Percocet 5/325 Mg Tab) 1 tab PO Q6H PRN PRN Reason: Pain, moderate (4-7) Stop: 10/09/16 14:51 Last Admin: 10/09/16 11:06 Dose: 1 tab Pantoprazole Sodium (Protonix Inj) 40 mg IVP DAILY [facility] Last Admin: 10/09/16 11:05 Dose: 40 mg Primidone (Mysoline) 50 mg PO DAILY [facility] Last Admin: 10/09/16 10:58 Dose: 50 mg Sertraline HCl (Zoloft) 25 mg PO HS [facility] Last Admin: 10/08/16 21:13 Dose: 25 mg Sevelamer HCl (Renagel) 800 mg PO TID [facility] Last Admin: 10/09/16 10:58 Dose: 800 mg Warfarin Sodium (Coumadin) 5 mg PO 1800 DORON PRN Reason: Protocol Zinc Sulfate (Zinc Sulfate 220 Mg Cap) 220 mg PO DAILY [facility] Last Admin: 10/09/16 10:58 Dose: 220 mg - Labs Labs: 10/09/16 07:00 10/09/16 07:00 PT 23.4 Seconds (9.9-11.8) H 10/09/16 07:00 INR 2.17 (0.93-1.08) H 10/09/16 07:00 APTT 65.4 Seconds (23.7-30.8) H 10/09/16 07:00 Attending/Attestation - Attestation I have personally seen and examined this patient.: Yes I have fully participated in the care of the patient.: Yes I have reviewed all pertinent clinical information, including history, physical exam and plan: Yes
--- NOTE | 2016-10-08 18:14 | CP.PCM.PN ---
Addendum entered and electronically signed by Evan Contreras DO 10/09/16 10:34: Patient was seen and examined and case was discussed at length with Dr. Huggins. Also discussed with Dr. Eller. All recs appreciated. Mental status improving with decreased pain medications. MRA pending. On lower warfarin dose from home as came in hypertherapeutic, on heparin drip until INR 2-3. Working with CM for possible SIMON placement. Evan Contreras D.O. PGY-2 Original Note: <VONDA HUGGINS - Last Filed: 10/08/16 18:07> Subjective - Date & Time of Evaluation Date of Evaluation: 10/08/16 Time of Evaluation: 06:45 - Subjective Subjective: Vonda Huggins D.O. PGY1 - Internal Medicine Progress Note - Carla/Harish Service Patient seen and examined at beside. No acute overnight events reported. Patient appears comfortable, but stares blankly and provides mostly one-word answers. Patient is complaining of only mild pain in her right leg stump, otherwise she denies any pain. Family reports that she appears confused, Objective - Vital Signs/Intake and Output Vital Signs (last 24 hours): Temp Pulse Resp BP Pulse Ox 99.0 F 62 19 206/72 H 99 10/08/16 06:00 10/08/16 16:35 10/08/16 06:00 10/08/16 16:35 10/08/16 06:00 Intake and Output: 10/08/16 10/08/16 06:59 18:59 Intake Total 1252 Output Total 0 0 Balance 1252 0 - Medications Medications: Current Medications Acetaminophen (Tylenol 650mg/20.3ml Solution Ud) 650 mg PO Q6H PRN PRN Reason: Temperature Last Admin: 10/07/16 19:34 Dose: 650 mg Acetaminophen (Tylenol 650 Mg Supp) 650 mg RC Q4H PRN PRN Reason: Fever >100.4 F Last Admin: 10/06/16 23:24 Dose: 650 mg Albuterol/Ipratropium (Duoneb 3 Mg/0.5 Mg (3 Ml) Ud) 3 ml IH Q4H PRN PRN Reason: Shortness of Breath Last Admin: 10/03/16 07:50 Dose: 3 ml Alprazolam (Xanax) 0.5 mg PO TID PRN PRN Reason: Anxiety Amiodarone HCl (Cordarone) 200 mg PO DAILY [facility] Last Admin: 10/08/16 14:41 Dose: 200 mg Amlodipine Besylate (Norvasc) 10 mg PO DAILY [facility] Last Admin: 10/08/16 14:41 Dose: 10 mg Aspirin (Ecotrin) 81 mg PO DAILY [facility] Last Admin: 10/08/16 14:39 Dose: 81 mg Atorvastatin Calcium (Lipitor) 80 mg PO DIN [facility] Last Admin: 10/08/16 17:52 Dose: 80 mg Carbidopa/Levodopa (Sinemet 10/) 1 tab PO TID [facility] Last Admin: 10/08/16 17:52 Dose: 1 tab Carvedilol (Coreg) 6.25 mg PO Q12 [facility] Last Admin: 10/08/16 10:28 Dose: Not Given Clonidine HCl (Catapres) 0.3 mg PO Q8 [facility] Last Admin: 10/08/16 16:35 Dose: 0.3 mg Docusate Sodium (Colace) 100 mg PO DAILY [facility] Last Admin: 10/08/16 14:39 Dose: 100 mg Escitalopram Oxalate (Lexapro) 10 mg PO DAILY [facility] Last Admin: 10/08/16 14:39 Dose: 10 mg Folic Acid (Folic Acid) 1 mg PO DAILY [facility] Last Admin: 10/08/16 14:41 Dose: 1 mg Gabapentin (Neurontin) 100 mg PO BID [facility] PRN Reason: Protocol Last Admin: 10/08/16 17:52 Dose: 100 mg Hydralazine HCl (Apresoline) 100 mg PO Q8H PRN PRN Reason: Systolic Blood Pressure Last Admin: 10/07/16 19:33 Dose: 100 mg Piperacillin Sod/Tazobactam Sod (Zosyn 2.25 Gm In 0.9% 100 Ml) 2.25 gm in 100 mls @ 100 mls/hr IVPB Q8 [facility] PRN Reason: Protocol Stop: 10/14/16 07:01 Last Admin: 10/08/16 14:42 Dose: 100 mls/hr Heparin Sodium/Dextrose (Heparin 25,000 Units/250ml In D5w) 25,000 units in 250 mls @ 9.798 mls/hr IV .Q24H PRN; Protocol; 14 UNITS/KG/HR PRN Reason: ADJUST RATE PER PROTOCOL Last Titration: 10/07/16 20:42 Dose: 12 units/kg/hr, 8.399 mls/hr Insulin Detemir (Levemir) 6 unit SC BID [facility] Last Admin: 10/08/16 17:52 Dose: 6 unit Insulin Human Lispro (Humalog High) 0 units SC ACHS [facility] PRN Reason: Protocol Last Admin: 10/08/16 17:53 Dose: 2 units Lisinopril (Zestril) 80 mg PO DAILY [facility] Last Admin: 10/08/16 14:40 Dose: 80 mg Ondansetron HCl (Zofran Inj) 4 mg IVP ONCE PRN PRN Reason: Nausea/Vomiting Oxycodone/Acetaminophen (Percocet 5/325 Mg Tab) 1 tab PO Q6H PRN PRN Reason: Pain, moderate (4-7) Stop: 10/09/16 14:51 Last Admin: 10/07/16 13:52 Dose: 1 tab Pantoprazole Sodium (Protonix Inj) 40 mg IVP DAILY [facility] Last Admin: 10/08/16 14:41 Dose: 40 mg Primidone (Mysoline) 50 mg PO DAILY [facility] Last Admin: 10/08/16 14:39 Dose: 50 mg Sertraline HCl (Zoloft) 25 mg PO HS [facility] Last Admin: 10/08/16 00:23 Dose: 25 mg Sevelamer HCl (Renagel) 800 mg PO TID [facility] Last Admin: 10/08/16 17:27 Dose: Not Given Warfarin Sodium (Coumadin) 7.5 mg PO 1800 [facility] PRN Reason: Protocol Last Admin: 10/08/16 17:53 Dose: 7.5 mg Zinc Sulfate (Zinc Sulfate 220 Mg Cap) 220 mg PO DAILY [facility] Last Admin: 10/08/16 14:39 Dose: 220 mg - Labs Labs: 10/08/16 06:00 10/08/16 11:00 PT 14.0 Seconds (9.9-11.8) H 10/08/16 06:00 INR 1.30 (0.93-1.08) H 10/08/16 06:00 APTT 54.1 Seconds (23.7-30.8) H 10/08/16 06:30 - Constitutional Appears: Non-toxic, No Acute Distress, Confused, Chronically Ill - Head Exam Head Exam: ATRAUMATIC, NORMOCEPHALIC - Eye Exam Eye Exam: EOMI, Normal appearance - ENT Exam ENT Exam: Mucous Membranes Moist - Neck Exam Neck Exam: Normal Inspection - Respiratory Exam Respiratory Exam: Clear to Ausculation Bilateral. absent: Rales, Rhonchi, Wheezes - Cardiovascular Exam Cardiovascular Exam: RRR, +S1, +S2 - GI/Abdominal Exam GI & Abdominal Exam: Soft. absent: Tenderness - Extremities Exam Additional comments: Right BKA, splinted and wrapped, moderately tender tender. Left foot wrapped. - Neurological Exam Neurological Exam: Alert, Awake, CN II-XII Intact Neuro motor strength exam: Left Upper Extremity: 4, Right Upper Extremity: 4 Additional comments: Oriented to person only - Psychiatric Exam Psychiatric exam: Flat Affect, Normal Mood - Skin Skin Exam: Dry, Intact Assessment and Plan - Assessment and Plan (Free Text) Assessment: 66 yo F with a PMH of Antiphospholipid syndrome, ESRD on Dialysis T/R/Sa, CAD/ CABG, IDDM, Depression, Seizure Disorder, GERD, CHF Systolic and Diastolic Dysfunction, Parkinsons Disease, past DVTs, s/p R BKA, s/p CABG who initially presented complaining of a fall. After the fall, daughter says that patient was confused, said strange things, but quickly regained orientation. XR on admission showed right femur fracture, now s/p ORIF. She is also being treated for diabetic foot ulcer. Today she continues to have altered mental status. Plan: 1. Altered mental status - likely 2/2 acute ischemic stroke vs delirium vs narcotic AE - Mental status has been altered since the surgery, unchanged since yesterday - Brain MRI yesterday, significant for acute 2mm cortical infarct in left occipital lobe, not present on brain MRI in 06/2016 - Neurology (Milagros) on consult, recommended continue current medications, and observation, appreciate all recs - Several contraindications for tPA administration were present, including recent head trauma, recent heparin administration, and hypertension - Passed speech and swallow eval, resume normal diet - Pending MRA neck - Continue to monitor closely for any acute worsening in mental status or focal neurologic deficits 2. R femur fracture s/p witnessed mechanical fall - POD #4 ORIF with Ortho, doing well - Neurology Dr. Linares consulted - Cardio Dr. Mon consulted, appreciate all recs - Monitoring closely post op - Continue percocet for pain 3. Hx Antiphospholipid syndrome - Continue warfarin 7.5mg, continue to check INR, consider discharge when therapeutic - Currently on heparin drip - Consult Heme/Onc Dr. Dozier, appreciate all recs 4. Anemia - Likely 2/2 blood loss from surgery and dilutional - Transfused one unit yesterday, anemia improved, continue to monitor 5. ESRD on Dialysis - Nephro Dr. Eller consulted, appreciate all recs, cont HD - Continue Sevelamer - BUN and Cr stable 6. Hx CAD, CHF, HTN - Continue all home medications - Cardio Dr. Mon following 7. IDDM - Continue levimir 6u BID - Continue lispro sliding scale to high dose protocol - Continue accuchecks 8. Chronic LLE Ankle Ulcer - Wound Culture positive for pseudomonas - Podiatry Dr. Issa following, appreciate all recs - ID stopped cefipime, given one dose vancomyocin, and started IV zosyn 9. Hx Parkinsons disease - Continue home Carbidopa/Levodopa - Neuro (Ansalmi) recommends outpatient f/u 10. Hx Seizure Disorder - Continue home gabapentin and primidone 11. Hx of Depression and anxiety - Continue Escitalopram, Alprazolam, Sertraline 12. GERD - Continue home protonix GI/DVT ppx: protonix/heparin gtt Patient was seen and examined and case was discussed at length with attending Dr. Aguirre. <Alexey Morton - Last Filed: 10/21/16 17:05> Objective - Vital Signs/Intake and Output Vital Signs (last 24 hours): Temp Pulse Resp BP Pulse Ox 99.1 F 73 16 122/65 95 10/10/16 16:30 10/10/16 16:30 10/10/16 16:30 10/10/16 16:30 10/10/16 16:30 - Labs Labs: 10/10/16 08:00 10/10/16 08:00 PT 35.5 Seconds (9.9-11.8) H* 10/10/16 08:00 INR 3.29 (0.93-1.08) H 10/10/16 08:00 APTT 45.3 Seconds (23.7-30.8) H 10/10/16 08:00 Attending/Attestation - Attestation I have personally seen and examined this patient.: Yes I have fully participated in the care of the patient.: Yes I have reviewed all pertinent clinical information, including history, physical exam and plan: Yes Notes (Text): 10/21/16 17:05 Medical record note made by the resident after discussion with my direction and input after the patient was personally seen and examined by me. I have reviewed the chart and agree that the record accurately reflects by personal performance of the history, physical exam, data review, and medical decision-making, in the course for the patient. I have also personally directed the plan of care.
[2016-10-08] MEDS: Heparin 25,000units in D5W 25,000 UNITS/250 ML BAG IV PRN (20:37)
[2016-10-09] MEDS: Piperacillin/Tazobact 2.25gm 2.25 GM/100 ML BAG IVPB SCH ×3 (05:41→21:07)
[2016-10-09 07:40] LABS: BASO # 0.02 K/mm3 (0.0-2.0); BASO % 0.3 % (0.0-3.0); EOS # 0.2 (0.0-0.7); GRAN # 5.88 (1.4-6.5); HEMOGLOBIN 10.4 gm/dL (12.0-16.0); LYMPH # 0.8 (1.2-3.4); LYMPH % 10.3 % (22.0-35.0); MEAN CELL VOLUME 84.5 fL (80.0-105.0); MEAN CORPUSCULAR HEMOGLOBIN 27.3 pg (25.0-35.0); MEAN CORPUSCULAR HGB CONC 32.3 g/dl (31.0-37.0); MEAN PLATELET VOLUME 10.5 fl (7.0-11.0); MONO # 0.7 (0.1-0.6); MONO % 9.4 % (1.0-6.0); PLATELET COUNT 223 10^3/uL (120.0-450.0); RBC 3.81 10^6/uL (3.5-6.1); RED CELL DISTRIBUTION WIDTH 17.1 % (11.5-14.5); WHITE BLOOD COUNT 7.5 10^3/ul (4.5-11.0)
[2016-10-09 07:52] LABS: ALBUMIN 3.6 g/dL (3.0-4.8); CALCIUM 9.4 mg/dL (8.4-10.5); INR 2.17 (0.93-1.08); MAGNESIUM 2.3 mg/dL (1.7-2.2); PARTIAL THROMBOPLASTIN TIME 65.4 Seconds (23.7-30.8); PROTHROMBIN TIME 23.4 Seconds (9.9-11.8)
--- NOTE | 2016-10-09 08:31 | CP.PCM.PN ---
Subjective - Date & Time of Evaluation Date of Evaluation: 10/09/16 Time of Evaluation: 08:27 - Subjective Subjective: Pt is awake. Denies any pain. Not eating well. Spoke to daughter at bedside. Objective - Vital Signs/Intake and Output Vital Signs (last 24 hours): Temp Pulse Resp BP Pulse Ox 99.3 F 55 L 19 166/67 H 98 10/09/16 06:00 10/09/16 06:45 10/09/16 06:00 10/09/16 06:45 10/09/16 06:00 Intake and Output: 10/09/16 10/09/16 06:59 18:59 Intake Total 781 Output Total 400 Balance 381 - Medications Medications: Current Medications Acetaminophen (Tylenol 650mg/20.3ml Solution Ud) 650 mg PO Q6H PRN PRN Reason: Temperature Last Admin: 10/07/16 19:34 Dose: 650 mg Acetaminophen (Tylenol 650 Mg Supp) 650 mg RC Q4H PRN PRN Reason: Fever >100.4 F Last Admin: 10/06/16 23:24 Dose: 650 mg Albuterol/Ipratropium (Duoneb 3 Mg/0.5 Mg (3 Ml) Ud) 3 ml IH Q4H PRN PRN Reason: Shortness of Breath Last Admin: 10/03/16 07:50 Dose: 3 ml Alprazolam (Xanax) 0.5 mg PO TID PRN PRN Reason: Anxiety Amiodarone HCl (Cordarone) 200 mg PO DAILY [facility] Last Admin: 10/08/16 14:41 Dose: 200 mg Amlodipine Besylate (Norvasc) 10 mg PO DAILY [facility] Last Admin: 10/08/16 14:41 Dose: 10 mg Aspirin (Ecotrin) 81 mg PO DAILY [facility] Last Admin: 10/08/16 14:39 Dose: 81 mg Atorvastatin Calcium (Lipitor) 80 mg PO DIN [facility] Last Admin: 10/08/16 17:52 Dose: 80 mg Carbidopa/Levodopa (Sinemet 10/100) 1 tab PO TID [facility] Last Admin: 10/08/16 17:52 Dose: 1 tab Carvedilol (Coreg) 6.25 mg PO Q12 [facility] Last Admin: 10/08/16 21:14 Dose: 6.25 mg Clonidine HCl (Catapres) 0.3 mg PO Q8 [facility] Last Admin: 10/09/16 05:41 Dose: 0.3 mg Docusate Sodium (Colace) 100 mg PO DAILY [facility] Last Admin: 10/08/16 14:39 Dose: 100 mg Escitalopram Oxalate (Lexapro) 10 mg PO DAILY [facility] Last Admin: 10/08/16 14:39 Dose: 10 mg Folic Acid (Folic Acid) 1 mg PO DAILY [facility] Last Admin: 10/08/16 14:41 Dose: 1 mg Gabapentin (Neurontin) 100 mg PO BID [facility] PRN Reason: Protocol Last Admin: 10/08/16 17:52 Dose: 100 mg Hydralazine HCl (Apresoline) 100 mg PO Q8H PRN PRN Reason: Systolic Blood Pressure Last Admin: 10/09/16 01:40 Dose: 100 mg Piperacillin Sod/Tazobactam Sod (Zosyn 2.25 Gm In 0.9% 100 Ml) 2.25 gm in 100 mls @ 100 mls/hr IVPB Q8 [facility] PRN Reason: Protocol Stop: 10/14/16 07:01 Last Admin: 10/09/16 05:41 Dose: 100 mls/hr Heparin Sodium/Dextrose (Heparin 25,000 Units/250ml In D5w) 25,000 units in 250 mls @ 9.798 mls/hr IV .Q24H PRN; Protocol; 14 UNITS/KG/HR PRN Reason: ADJUST RATE PER PROTOCOL Last Admin: 10/08/16 20:37 Dose: 12 units/kg/hr, 8.399 mls/hr Insulin Detemir (Levemir) 6 unit SC BID [facility] Last Admin: 10/08/16 17:52 Dose: 6 unit Insulin Human Lispro (Humalog High) 0 units SC ACHS [facility] PRN Reason: Protocol Last Admin: 10/08/16 21:25 Dose: Not Given Lisinopril (Zestril) 80 mg PO DAILY [facility] Last Admin: 10/08/16 14:40 Dose: 80 mg Ondansetron HCl (Zofran Inj) 4 mg IVP ONCE PRN PRN Reason: Nausea/Vomiting Oxycodone/Acetaminophen (Percocet 5/325 Mg Tab) 1 tab PO Q6H PRN PRN Reason: Pain, moderate (4-7) Stop: 10/09/16 14:51 Last Admin: 10/07/16 13:52 Dose: 1 tab Pantoprazole Sodium (Protonix Inj) 40 mg IVP DAILY [facility] Last Admin: 10/08/16 14:41 Dose: 40 mg Primidone (Mysoline) 50 mg PO DAILY [facility] Last Admin: 10/08/16 14:39 Dose: 50 mg Sertraline HCl (Zoloft) 25 mg PO HS [facility] Last Admin: 10/08/16 21:13 Dose: 25 mg Sevelamer HCl (Renagel) 800 mg PO TID [facility] Last Admin: 10/08/16 17:27 Dose: Not Given Warfarin Sodium (Coumadin) 7.5 mg PO 1800 [facility] PRN Reason: Protocol Last Admin: 10/08/16 17:53 Dose: 7.5 mg Zinc Sulfate (Zinc Sulfate 220 Mg Cap) 220 mg PO DAILY [facility] Last Admin: 10/08/16 14:39 Dose: 220 mg - Labs Labs: 10/09/16 07:00 10/09/16 07:00 PT 23.4 Seconds (9.9-11.8) H 10/09/16 07:00 INR 2.17 (0.93-1.08) H 10/09/16 07:00 APTT 65.4 Seconds (23.7-30.8) H 10/09/16 07:00 - Constitutional Appears: Well - Head Exam Head Exam: NORMAL INSPECTION - Eye Exam Eye Exam: EOMI, Normal appearance, PERRL Pupil Exam: NORMAL ACCOMODATION, PERRL - ENT Exam ENT Exam: Mucous Membranes Moist, Normal Exam - Neck Exam Neck Exam: Full ROM, Normal Inspection. absent: Lymphadenopathy - Respiratory Exam Respiratory Exam: Clear to Ausculation Bilateral, NORMAL BREATHING PATTERN. absent: Prolonged Expiratory Phase, Rales - Cardiovascular Exam Cardiovascular Exam: REGULAR RHYTHM, +S1, +S2. absent: Murmur - GI/Abdominal Exam GI & Abdominal Exam: Soft, Normal Bowel Sounds. absent: Tenderness Assessment and Plan - Assessment and Plan (Free Text) Assessment: 1.) L Occipital CVA 2.) Fraility 3.) ESRD on Dialysis 4.) CAD s/p CABG 5.) DM-2 6.) PAD 7.) Parkinsons 8.) GERD 9.) Depression, Anxiety 10.) Antiphospholipid syndrome 11.) DVT 12) HTN 13) Secondary hyperparathyroidism 14) Chronic Anemia 15) R BKA 16) L femoral bypass 17) R Femur fracture s/p surgery Plan: On Aranesp for anemia. On HTN meds, continue meds. Renal diet. On Lipitor for dyslipidemia. On Coumadin, now therapeutic. On Sevelamir for secondary hyperparathyroidism. Next HD is tomorrow.
[2016-10-09] MEDS: Insulin Lispro (HUMAlog) HIGH Coverage SC SCH ×4 (08:49→21:15)
--- NOTE | 2016-10-09 09:13 | CP.PCM.PN ---
Subjective - Date & Time of Evaluation Date of Evaluation: 10/09/16 Time of Evaluation: 09:05 - Subjective Subjective: PGY-2 Neurology progress note for Dr Linares. Patient sen, and examined. No acute overnight events. Patient is better mentally , and is more interactive. Objective - Vital Signs/Intake and Output Vital Signs (last 24 hours): Temp Pulse Resp BP Pulse Ox 99.3 F 55 L 19 166/67 H 98 10/09/16 06:00 10/09/16 06:45 10/09/16 06:00 10/09/16 06:45 10/09/16 06:00 Intake and Output: 10/09/16 10/09/16 06:59 18:59 Intake Total 781 Output Total 400 Balance 381 - Medications Medications: Current Medications Acetaminophen (Tylenol 650mg/20.3ml Solution Ud) 650 mg PO Q6H PRN PRN Reason: Temperature Last Admin: 10/07/16 19:34 Dose: 650 mg Acetaminophen (Tylenol 650 Mg Supp) 650 mg RC Q4H PRN PRN Reason: Fever >100.4 F Last Admin: 10/06/16 23:24 Dose: 650 mg Albuterol/Ipratropium (Duoneb 3 Mg/0.5 Mg (3 Ml) Ud) 3 ml IH Q4H PRN PRN Reason: Shortness of Breath Last Admin: 10/03/16 07:50 Dose: 3 ml Alprazolam (Xanax) 0.5 mg PO TID PRN PRN Reason: Anxiety Amiodarone HCl (Cordarone) 200 mg PO DAILY [facility] Last Admin: 10/08/16 14:41 Dose: 200 mg Amlodipine Besylate (Norvasc) 10 mg PO DAILY [facility] Last Admin: 10/08/16 14:41 Dose: 10 mg Aspirin (Ecotrin) 81 mg PO DAILY [facility] Last Admin: 10/08/16 14:39 Dose: 81 mg Atorvastatin Calcium (Lipitor) 80 mg PO DIN [facility] Last Admin: 10/08/16 17:52 Dose: 80 mg Carbidopa/Levodopa (Sinemet 10/100) 1 tab PO TID [facility] Last Admin: 10/08/16 17:52 Dose: 1 tab Carvedilol (Coreg) 6.25 mg PO Q12 [facility] Last Admin: 10/08/16 21:14 Dose: 6.25 mg Clonidine HCl (Catapres) 0.3 mg PO Q8 [facility] Last Admin: 10/09/16 05:41 Dose: 0.3 mg Docusate Sodium (Colace) 100 mg PO DAILY [facility] Last Admin: 10/08/16 14:39 Dose: 100 mg Escitalopram Oxalate (Lexapro) 10 mg PO DAILY [facility] Last Admin: 10/08/16 14:39 Dose: 10 mg Folic Acid (Folic Acid) 1 mg PO DAILY [facility] Last Admin: 10/08/16 14:41 Dose: 1 mg Gabapentin (Neurontin) 100 mg PO BID [facility] PRN Reason: Protocol Last Admin: 10/08/16 17:52 Dose: 100 mg Hydralazine HCl (Apresoline) 100 mg PO Q8H PRN PRN Reason: Systolic Blood Pressure Last Admin: 10/09/16 01:40 Dose: 100 mg Piperacillin Sod/Tazobactam Sod (Zosyn 2.25 Gm In 0.9% 100 Ml) 2.25 gm in 100 mls @ 100 mls/hr IVPB Q8 [facility] PRN Reason: Protocol Stop: 10/14/16 07:01 Last Admin: 10/09/16 05:41 Dose: 100 mls/hr Heparin Sodium/Dextrose (Heparin 25,000 Units/250ml In D5w) 25,000 units in 250 mls @ 9.798 mls/hr IV .Q24H PRN; Protocol; 14 UNITS/KG/HR PRN Reason: ADJUST RATE PER PROTOCOL Last Admin: 10/08/16 20:37 Dose: 12 units/kg/hr, 8.399 mls/hr Insulin Detemir (Levemir) 6 unit SC BID [facility] Last Admin: 10/08/16 17:52 Dose: 6 unit Insulin Human Lispro (Humalog High) 0 units SC ACHS [facility] PRN Reason: Protocol Last Admin: 10/09/16 08:49 Dose: 4 units Lisinopril (Zestril) 80 mg PO DAILY [facility] Last Admin: 10/08/16 14:40 Dose: 80 mg Ondansetron HCl (Zofran Inj) 4 mg IVP ONCE PRN PRN Reason: Nausea/Vomiting Oxycodone/Acetaminophen (Percocet 5/325 Mg Tab) 1 tab PO Q6H PRN PRN Reason: Pain, moderate (4-7) Stop: 10/09/16 14:51 Last Admin: 10/07/16 13:52 Dose: 1 tab Pantoprazole Sodium (Protonix Inj) 40 mg IVP DAILY [facility] Last Admin: 10/08/16 14:41 Dose: 40 mg Primidone (Mysoline) 50 mg PO DAILY [facility] Last Admin: 10/08/16 14:39 Dose: 50 mg Sertraline HCl (Zoloft) 25 mg PO HS [facility] Last Admin: 10/08/16 21:13 Dose: 25 mg Sevelamer HCl (Renagel) 800 mg PO TID [facility] Last Admin: 10/08/16 17:27 Dose: Not Given Warfarin Sodium (Coumadin) 7.5 mg PO 1800 [facility] PRN Reason: Protocol Last Admin: 10/08/16 17:53 Dose: 7.5 mg Zinc Sulfate (Zinc Sulfate 220 Mg Cap) 220 mg PO DAILY [facility] Last Admin: 10/08/16 14:39 Dose: 220 mg - Labs Labs: 10/09/16 07:00 10/09/16 07:00 PT 23.4 Seconds (9.9-11.8) H 10/09/16 07:00 INR 2.17 (0.93-1.08) H 10/09/16 07:00 APTT 65.4 Seconds (23.7-30.8) H 10/09/16 07:00 - Constitutional Appears: No Acute Distress, Older Than Stated Age, Chronically Ill - Head Exam Head Exam: NORMAL INSPECTION, NORMOCEPHALIC. absent: ATRAUMATIC (right eye brown laceration.) - Eye Exam Eye Exam: EOMI, Normal appearance, PERRL - ENT Exam ENT Exam: Mucous Membranes Moist - Neck Exam Neck Exam: Normal Inspection. absent: Tenderness - Respiratory Exam Respiratory Exam: Clear to Ausculation Bilateral, NORMAL BREATHING PATTERN. absent: Rhonchi, Wheezes, Respiratory Distress, Stridor - Cardiovascular Exam Cardiovascular Exam: REGULAR RHYTHM, +S1, +S2 - GI/Abdominal Exam GI & Abdominal Exam: Soft, Normal Bowel Sounds. absent: Tenderness - Extremities Exam Extremities Exam: Tenderness - Back Exam Back Exam: NORMAL INSPECTION - Neurological Exam Neurological Exam: Alert, Awake, CN II-XII Intact, Oriented x3 Neuro motor strength exam: Left Upper Extremity: 4, Right Upper Extremity: 4, Left Lower Extremity: 4, Right Lower Extremity: 0 (bka/orif) Additional comments: + pronator drift on the right. Tremors with finger to nose. speaking in full sentences - Psychiatric Exam Psychiatric exam: Normal Affect, Normal Mood - Skin Skin Exam: Dry, Warm Assessment and Plan - Assessment and Plan (Free Text) Assessment: Patient is a Parkinson disease, diabetic foot ulcers s/p BKA of the right LE, osteomyolitis of the left toe s/p treatments, ESRD on HD, CAD s/p CABG, IDDM2, Antiphospholipid syndrome, h/o DVTs on Coumadin, depression, Seizure Disorder, GERD, CHF, prior h/o fall presenting s/p fall at home with fracture of the right bka stump. Neurology is following patient for Parkinson disease and left occipital infarct. MRA of the neck with mild stenosis of less than 60% of the left internal carotid artery. Plan: - Continue current medical management - follow up as outpatient for Parkinson work up and EEG. Patient seen, and examined at beside with Dr Linares.
[2016-10-09] MEDS ORDERED: Magnesium Citrate Oral SOL (300 ml) PO ONE (10:39)
[2016-10-09] MEDS ORDERED: POLYETHYLENE GLYCOL 3350 17 GM/Dose PACKET PO ONE (10:39)
--- NOTE | 2016-10-09 10:48 | CP.PCM.PN ---
Subjective - Date & Time of Evaluation Date of Evaluation: 10/09/16 Time of Evaluation: 08:30 - Subjective Subjective: For neck MRA this morning, afebrile, not in distress. Objective - Vital Signs/Intake and Output Vital Signs (last 24 hours): Temp Pulse Resp BP Pulse Ox 99.3 F 55 L 19 177/63 H 98 10/09/16 06:00 10/09/16 06:00 10/09/16 06:00 10/09/16 06:00 10/09/16 06:00 Intake and Output: 10/08/16 10/09/16 18:59 06:59 Intake Total 180 781 Output Total 0 400 Balance 180 381 - Medications Medications: Current Medications Acetaminophen (Tylenol 650mg/20.3ml Solution Ud) 650 mg PO Q6H PRN PRN Reason: Temperature Last Admin: 10/07/16 19:34 Dose: 650 mg Acetaminophen (Tylenol 650 Mg Supp) 650 mg RC Q4H PRN PRN Reason: Fever >100.4 F Last Admin: 10/06/16 23:24 Dose: 650 mg Albuterol/Ipratropium (Duoneb 3 Mg/0.5 Mg (3 Ml) Ud) 3 ml IH Q4H PRN PRN Reason: Shortness of Breath Last Admin: 10/03/16 07:50 Dose: 3 ml Alprazolam (Xanax) 0.5 mg PO TID PRN PRN Reason: Anxiety Amiodarone HCl (Cordarone) 200 mg PO DAILY [facility] Last Admin: 10/08/16 14:41 Dose: 200 mg Amlodipine Besylate (Norvasc) 10 mg PO DAILY [facility] Last Admin: 10/08/16 14:41 Dose: 10 mg Aspirin (Ecotrin) 81 mg PO DAILY [facility] Last Admin: 10/08/16 14:39 Dose: 81 mg Atorvastatin Calcium (Lipitor) 80 mg PO DIN [facility] Last Admin: 10/08/16 17:52 Dose: 80 mg Carbidopa/Levodopa (Sinemet 10/100) 1 tab PO TID [facility] Last Admin: 10/08/16 17:52 Dose: 1 tab Carvedilol (Coreg) 6.25 mg PO Q12 [facility] Last Admin: 10/08/16 21:14 Dose: 6.25 mg Clonidine HCl (Catapres) 0.3 mg PO Q8 [facility] Last Admin: 10/09/16 05:41 Dose: 0.3 mg Docusate Sodium (Colace) 100 mg PO DAILY [facility] Last Admin: 10/08/16 14:39 Dose: 100 mg Escitalopram Oxalate (Lexapro) 10 mg PO DAILY [facility] Last Admin: 10/08/16 14:39 Dose: 10 mg Folic Acid (Folic Acid) 1 mg PO DAILY [facility] Last Admin: 10/08/16 14:41 Dose: 1 mg Gabapentin (Neurontin) 100 mg PO BID [facility] PRN Reason: Protocol Last Admin: 10/08/16 17:52 Dose: 100 mg Hydralazine HCl (Apresoline) 100 mg PO Q8H PRN PRN Reason: Systolic Blood Pressure Last Admin: 10/09/16 01:40 Dose: 100 mg Piperacillin Sod/Tazobactam Sod (Zosyn 2.25 Gm In 0.9% 100 Ml) 2.25 gm in 100 mls @ 100 mls/hr IVPB Q8 [facility] PRN Reason: Protocol Stop: 10/14/16 07:01 Last Admin: 10/09/16 05:41 Dose: 100 mls/hr Heparin Sodium/Dextrose (Heparin 25,000 Units/250ml In D5w) 25,000 units in 250 mls @ 9.798 mls/hr IV .Q24H PRN; Protocol; 14 UNITS/KG/HR PRN Reason: ADJUST RATE PER PROTOCOL Last Admin: 10/08/16 20:37 Dose: 12 units/kg/hr, 8.399 mls/hr Insulin Detemir (Levemir) 6 unit SC BID [facility] Last Admin: 10/08/16 17:52 Dose: 6 unit Insulin Human Lispro (Humalog High) 0 units SC ACHS [facility] PRN Reason: Protocol Last Admin: 10/08/16 21:25 Dose: Not Given Lisinopril (Zestril) 80 mg PO DAILY [facility] Last Admin: 10/08/16 14:40 Dose: 80 mg Ondansetron HCl (Zofran Inj) 4 mg IVP ONCE PRN PRN Reason: Nausea/Vomiting Oxycodone/Acetaminophen (Percocet 5/325 Mg Tab) 1 tab PO Q6H PRN PRN Reason: Pain, moderate (4-7) Stop: 10/09/16 14:51 Last Admin: 10/07/16 13:52 Dose: 1 tab Pantoprazole Sodium (Protonix Inj) 40 mg IVP DAILY [facility] Last Admin: 10/08/16 14:41 Dose: 40 mg Primidone (Mysoline) 50 mg PO DAILY [facility] Last Admin: 10/08/16 14:39 Dose: 50 mg Sertraline HCl (Zoloft) 25 mg PO HS [facility] Last Admin: 10/08/16 21:13 Dose: 25 mg Sevelamer HCl (Renagel) 800 mg PO TID [facility] Last Admin: 10/08/16 17:27 Dose: Not Given Warfarin Sodium (Coumadin) 7.5 mg PO 1800 [facility] PRN Reason: Protocol Last Admin: 10/08/16 17:53 Dose: 7.5 mg Zinc Sulfate (Zinc Sulfate 220 Mg Cap) 220 mg PO DAILY [facility] Last Admin: 10/08/16 14:39 Dose: 220 mg - Labs Labs: 10/08/16 06:00 10/08/16 11:00 PT 14.0 Seconds (9.9-11.8) H 10/08/16 06:00 INR 1.30 (0.93-1.08) H 10/08/16 06:00 APTT 54.1 Seconds (23.7-30.8) H 10/08/16 06:30 - Constitutional Appears: Non-toxic, No Acute Distress - Head Exam Head Exam: NORMAL INSPECTION - Respiratory Exam Respiratory Exam: Decreased Breath Sounds - Cardiovascular Exam Cardiovascular Exam: +S1, +S2 - GI/Abdominal Exam GI & Abdominal Exam: Soft. absent: Tenderness Assessment and Plan - Assessment and Plan (Free Text) Plan: Assessment New onset fever, so far no evidence of new onset sepsis; patient has left foot ulcer, which grew E. faecalis, E. coli and Pseudomonas acute left occipital lobe infarct history of sepsis due to left sided healthcare-associated pneumonia Left heel ulcer with evidence of acute osteomyelitis on bone scan on 07/2016 ESRD on HD CAD S/P CABG chronic CHF DM history of anti-phospholipid antibody syndrome S/P right below the knee amputation Plan continue Zosyn; repeat blood are negative; PCT is elevated but the patient has chronic renal failure, CXR does not show infiltrates; foot xray from 09/23/2016 did not show sequelae of osteomyelitis and the patient had been treated for osteomyelitis in July 2016; reviewed Podiatry evaluation and plans for the left foot will continue to monitor clinically follow up neck MRA results
[2016-10-09] MEDS: Insulin Detemir 100 units/ml Vial (Levemir) SC SCH ×2 (11:02→18:41)
--- NOTE | 2016-10-09 11:05 | MRI ---
PROCEDURE: MR Angiography of the neck without contrast HISTORY: cva- evaluate the carotid stenosis. COMPARISON: Doppler ultrasound dated 10/02/2016 TECHNIQUE: 3D [id number] angiography of the neck was performed. Rotating maximum intensity projection images of the cervical carotid and vertebral arteries were generated. The origins of the common carotid arteries were not visualized, which is a limitation inherent to the non-contrast time of flight technique. FINDINGS: RIGHT CAROTID ARTERIES: Common Carotid Artery: Normal. Carotid Bifurcation: Normal. Internal Carotid Artery:Normal. External Carotid Artery (proximal branches): Normal. LEFT CAROTID ARTERIES: Common Carotid Artery: Normal. Carotid Bifurcation: Normal. Internal Carotid Artery:There is a mild stenosis of less than 60 percent at the origin of the left internal carotid External Carotid Artery (proximal branches): Normal. VERTEBRAL ARTERIES: Right Vertebral Artery: Dominant Left Vertebral Artery: Normal. OTHER FINDINGS: None. IMPRESSION: There is a mild stenosis of less than 60 percent at the origin of the left internal carotid
[2016-10-09] MEDS: Oxycodone/Acetaminophen 5/325 mg Tab PO PRN (11:06)
--- NOTE | 2016-10-09 15:02 | CP.PCM.PN ---
<Sharmila Em - Last Filed: 10/09/16 14:58> Subjective - Date & Time of Evaluation Date of Evaluation: 10/09/16 Time of Evaluation: 14:59 - Subjective Subjective: 66 year old female was seen at bedside regarding left heel ulceration. Patient is 5 day s/p right femur ORIF. She has an offloding boot her on left foot. Today , she is more awake and was seen sitting up in bed. She denies any n/v/f/c/sob/ cp. Objective - Vital Signs/Intake and Output Vital Signs (last 24 hours): Temp Pulse Resp BP Pulse Ox 98.3 F 53 L 19 174/66 H 98 10/09/16 11:47 10/09/16 11:47 10/09/16 11:47 10/09/16 11:47 10/09/16 06:00 Intake and Output: 10/09/16 10/09/16 06:59 18:59 Intake Total 781 Output Total 400 Balance 381 - Medications Medications: Current Medications Acetaminophen (Tylenol 650mg/20.3ml Solution Ud) 650 mg PO Q6H PRN PRN Reason: Temperature Last Admin: 10/07/16 19:34 Dose: 650 mg Acetaminophen (Tylenol 650 Mg Supp) 650 mg RC Q4H PRN PRN Reason: Fever >100.4 F Last Admin: 10/06/16 23:24 Dose: 650 mg Albuterol/Ipratropium (Duoneb 3 Mg/0.5 Mg (3 Ml) Ud) 3 ml IH Q4H PRN PRN Reason: Shortness of Breath Last Admin: 10/03/16 07:50 Dose: 3 ml Alprazolam (Xanax) 0.5 mg PO TID PRN PRN Reason: Anxiety Amiodarone HCl (Cordarone) 200 mg PO DAILY [facility] Last Admin: 10/09/16 11:00 Dose: 200 mg Amlodipine Besylate (Norvasc) 10 mg PO DAILY [facility] Last Admin: 10/09/16 10:59 Dose: 10 mg Aspirin (Ecotrin) 81 mg PO DAILY [facility] Last Admin: 10/09/16 10:58 Dose: 81 mg Atorvastatin Calcium (Lipitor) 80 mg PO DIN [facility] Last Admin: 10/08/16 17:52 Dose: 80 mg Carbidopa/Levodopa (Sinemet 10/100) 1 tab PO TID [facility] Last Admin: 10/09/16 10:58 Dose: 1 tab Carvedilol (Coreg) 6.25 mg PO Q12 [facility] Last Admin: 10/09/16 11:01 Dose: Not Given Clonidine HCl (Catapres) 0.3 mg PO Q8 [facility] Last Admin: 10/09/16 05:41 Dose: 0.3 mg Docusate Sodium (Colace) 100 mg PO DAILY [facility] Last Admin: 10/09/16 11:03 Dose: 100 mg Escitalopram Oxalate (Lexapro) 10 mg PO DAILY [facility] Last Admin: 10/09/16 10:58 Dose: 10 mg Folic Acid (Folic Acid) 1 mg PO DAILY [facility] Last Admin: 10/09/16 10:58 Dose: 1 mg Gabapentin (Neurontin) 100 mg PO BID [facility] PRN Reason: Protocol Last Admin: 10/09/16 10:58 Dose: 100 mg Hydralazine HCl (Apresoline) 100 mg PO Q8H [facility] Last Admin: 10/09/16 11:24 Dose: Not Given Piperacillin Sod/Tazobactam Sod (Zosyn 2.25 Gm In 0.9% 100 Ml) 2.25 gm in 100 mls @ 100 mls/hr IVPB Q8 [facility] PRN Reason: Protocol Stop: 10/14/16 07:01 Last Admin: 10/09/16 05:41 Dose: 100 mls/hr Insulin Detemir (Levemir) 6 unit SC BID [facility] Last Admin: 10/09/16 11:02 Dose: 6 unit Insulin Human Lispro (Humalog High) 0 units SC ACHS [facility] PRN Reason: Protocol Last Admin: 10/09/16 12:28 Dose: 7 units Lisinopril (Zestril) 80 mg PO DAILY [facility] Last Admin: 10/09/16 10:59 Dose: 80 mg Ondansetron HCl (Zofran Inj) 4 mg IVP ONCE PRN PRN Reason: Nausea/Vomiting Pantoprazole Sodium (Protonix Inj) 40 mg IVP DAILY [facility] Last Admin: 10/09/16 11:05 Dose: 40 mg Primidone (Mysoline) 50 mg PO DAILY [facility] Last Admin: 10/09/16 10:58 Dose: 50 mg Sertraline HCl (Zoloft) 25 mg PO HS [facility] Last Admin: 10/08/16 21:13 Dose: 25 mg Sevelamer HCl (Renagel) 800 mg PO TID [facility] Last Admin: 10/09/16 10:58 Dose: 800 mg Warfarin Sodium (Coumadin) 5 mg PO 1800 [facility] PRN Reason: Protocol Zinc Sulfate (Zinc Sulfate 220 Mg Cap) 220 mg PO DAILY [facility] Last Admin: 10/09/16 10:58 Dose: 220 mg - Labs Labs: 10/09/16 07:00 10/09/16 07:00 PT 23.4 Seconds (9.9-11.8) H 10/09/16 07:00 INR 2.17 (0.93-1.08) H 10/09/16 07:00 APTT 65.4 Seconds (23.7-30.8) H 10/09/16 07:00 - Constitutional Appears: Non-toxic, No Acute Distress - Extremities Exam Additional comments: Lower extremity focused exam: Right: Below knee amputation noted Left: Vasc: Non-palpable DP and PT pulses, CFT < 4 sec to all digits, TG wnl, no edema noted Neuro: Gross sensation diminished Derm: Superficial ulceration noted to posterior heel measuring approximately 0.3 cm by 0.5 cm. No drainage, no purulence, no malodor, no ascending cellulitis , no fluctuance, no probe to bone or other signs of infection noted, periwound is slightly macerated Ortho: Mild tenderness on palpation to heel - Neurological Exam Neurological Exam: Alert, Awake, Oriented x3 - Psychiatric Exam Psychiatric exam: Normal Affect, Normal Mood Assessment and Plan - Assessment and Plan (Free Text) Assessment: 66 year old female with diabetic left heel ulceration Plan: Patient examined and evaluated Discussed with attending Dr. Issa Chart, labs and vitals reviewed: afebrile, WBC 7.5 Left heel dressed with 4x4 and optifoam Multipodus boot reapplied to patients foot Patient to continue offloading the left heel while in bed Patient stable for d/c from podiatry standpoint Podiatry will continue to monitor while patient remains in house <Elmira Issa - Last Filed: 10/13/16 17:23> Objective - Vital Signs/Intake and Output Vital Signs (last 24 hours): Temp Pulse Resp BP Pulse Ox 99.1 F 73 16 122/65 95 10/10/16 16:30 10/10/16 16:30 10/10/16 16:30 10/10/16 16:30 10/10/16 16:30 - Labs Labs: 10/10/16 08:00 10/10/16 08:00 PT 35.5 Seconds (9.9-11.8) H* 10/10/16 08:00 INR 3.29 (0.93-1.08) H 10/10/16 08:00 APTT 45.3 Seconds (23.7-30.8) H 10/10/16 08:00 Attending/Attestation - Attestation I have personally seen and examined this patient.: Yes I have fully participated in the care of the patient.: Yes I have reviewed all pertinent clinical information, including history, physical exam and plan: Yes
--- NOTE | 2016-10-09 15:21 | CP.PCM.PN ---
<Nelia Jacobs - Last Filed: 10/09/16 15:18> Subjective - Date & Time of Evaluation Date of Evaluation: 10/09/16 Time of Evaluation: 07:00 - Subjective Subjective: PGY-[address] Dozier Fever 3 days ago. Afebrile today sinus rachel on tele. no a-fib observed No acute complaint Objective - Vital Signs/Intake and Output Vital Signs (last 24 hours): Temp Pulse Resp BP Pulse Ox 98.3 F 53 L 19 174/66 H 98 10/09/16 11:47 10/09/16 11:47 10/09/16 11:47 10/09/16 11:47 10/09/16 06:00 Intake and Output: 10/09/16 10/09/16 06:59 18:59 Intake Total 781 Output Total 400 Balance 381 - Medications Medications: Current Medications Acetaminophen (Tylenol 650mg/20.3ml Solution Ud) 650 mg PO Q6H PRN PRN Reason: Temperature Last Admin: 10/07/16 19:34 Dose: 650 mg Acetaminophen (Tylenol 650 Mg Supp) 650 mg RC Q4H PRN PRN Reason: Fever >100.4 F Last Admin: 10/06/16 23:24 Dose: 650 mg Albuterol/Ipratropium (Duoneb 3 Mg/0.5 Mg (3 Ml) Ud) 3 ml IH Q4H PRN PRN Reason: Shortness of Breath Last Admin: 10/03/16 07:50 Dose: 3 ml Alprazolam (Xanax) 0.5 mg PO TID PRN PRN Reason: Anxiety Amiodarone HCl (Cordarone) 200 mg PO DAILY [facility] Last Admin: 10/09/16 11:00 Dose: 200 mg Amlodipine Besylate (Norvasc) 10 mg PO DAILY [facility] Last Admin: 10/09/16 10:59 Dose: 10 mg Aspirin (Ecotrin) 81 mg PO DAILY [facility] Last Admin: 10/09/16 10:58 Dose: 81 mg Atorvastatin Calcium (Lipitor) 80 mg PO DIN [facility] Last Admin: 10/08/16 17:52 Dose: 80 mg Carbidopa/Levodopa (Sinemet 10/100) 1 tab PO TID [facility] Last Admin: 10/09/16 10:58 Dose: 1 tab Carvedilol (Coreg) 6.25 mg PO Q12 [facility] Last Admin: 10/09/16 11:01 Dose: Not Given Clonidine HCl (Catapres) 0.3 mg PO Q8 [facility] Last Admin: 10/09/16 05:41 Dose: 0.3 mg Docusate Sodium (Colace) 100 mg PO DAILY [facility] Last Admin: 10/09/16 11:03 Dose: 100 mg Escitalopram Oxalate (Lexapro) 10 mg PO DAILY [facility] Last Admin: 10/09/16 10:58 Dose: 10 mg Folic Acid (Folic Acid) 1 mg PO DAILY [facility] Last Admin: 10/09/16 10:58 Dose: 1 mg Gabapentin (Neurontin) 100 mg PO BID [facility] PRN Reason: Protocol Last Admin: 10/09/16 10:58 Dose: 100 mg Hydralazine HCl (Apresoline) 100 mg PO Q8H [facility] Last Admin: 10/09/16 11:24 Dose: Not Given Piperacillin Sod/Tazobactam Sod (Zosyn 2.25 Gm In 0.9% 100 Ml) 2.25 gm in 100 mls @ 100 mls/hr IVPB Q8 [facility] PRN Reason: Protocol Stop: 10/14/16 07:01 Last Admin: 10/09/16 05:41 Dose: 100 mls/hr Insulin Detemir (Levemir) 6 unit SC BID [facility] Last Admin: 10/09/16 11:02 Dose: 6 unit Insulin Human Lispro (Humalog High) 0 units SC ACHS [facility] PRN Reason: Protocol Last Admin: 10/09/16 12:28 Dose: 7 units Lisinopril (Zestril) 80 mg PO DAILY [facility] Last Admin: 10/09/16 10:59 Dose: 80 mg Ondansetron HCl (Zofran Inj) 4 mg IVP ONCE PRN PRN Reason: Nausea/Vomiting Pantoprazole Sodium (Protonix Inj) 40 mg IVP DAILY [facility] Last Admin: 10/09/16 11:05 Dose: 40 mg Primidone (Mysoline) 50 mg PO DAILY [facility] Last Admin: 10/09/16 10:58 Dose: 50 mg Sertraline HCl (Zoloft) 25 mg PO HS [facility] Last Admin: 10/08/16 21:13 Dose: 25 mg Sevelamer HCl (Renagel) 800 mg PO TID [facility] Last Admin: 10/09/16 10:58 Dose: 800 mg Warfarin Sodium (Coumadin) 5 mg PO 1800 [facility] PRN Reason: Protocol Zinc Sulfate (Zinc Sulfate 220 Mg Cap) 220 mg PO DAILY [facility] Last Admin: 10/09/16 10:58 Dose: 220 mg - Labs Labs: 10/09/16 07:00 10/09/16 07:00 PT 23.4 Seconds (9.9-11.8) H 10/09/16 07:00 INR 2.17 (0.93-1.08) H 10/09/16 07:00 APTT 65.4 Seconds (23.7-30.8) H 10/09/16 07:00 - Constitutional Appears: No Acute Distress - Head Exam Head Exam: NORMAL INSPECTION, NORMOCEPHALIC Additional comments: abrasion healing - Eye Exam Eye Exam: EOMI, Normal appearance, PERRL. absent: Scleral icterus - ENT Exam ENT Exam: Mucous Membranes Moist - Neck Exam Neck Exam: absent: Lymphadenopathy - Respiratory Exam Respiratory Exam: Clear to Ausculation Bilateral. absent: Rales, Rhonchi, Wheezes - Cardiovascular Exam Cardiovascular Exam: REGULAR RHYTHM, +S1, +S2 - GI/Abdominal Exam GI & Abdominal Exam: Soft, Normal Bowel Sounds. absent: Guarding, Rigid, Tenderness - Extremities Exam Extremities Exam: Normal Capillary Refill. absent: Calf Tenderness Additional comments: R BKA - Neurological Exam Neurological Exam: Alert, Awake, CN II-XII Intact Neuro motor strength exam: Left Upper Extremity: 4, Right Upper Extremity: 5 - Psychiatric Exam Psychiatric exam: Normal Affect, Normal Mood - Skin Skin Exam: Dry, Warm Assessment and Plan - Assessment and Plan (Free Text) Plan: 66 years old female with ESRD on HD has Hx of DVTs, Antiphospholipid syndrome, PAD, questionable seizure Hx, has a high risk to venous and arterial thromboembolic events. Pt has coumadin coagulopathy. Pt sustained R femur fracture, and underwent ORIF with nail. Pt has cellulitis. Pt has delirium Acute Stroke - solidary 2 mm acute cortical infarct L occipital lobe - PT/OT/ST/swallow eval - ASA, high dose lipitor Antiphospholipid syndrome - hepatitis antibody titer negative - anticarlipin antibody POS - 12/18/2001: Factor II level 52% Factor V level was 28% (nl: 60-440) Factor V Leiden negative Factor XIII was 144 (n; 50-150) - Confirm: Hexagonal phospholipid titer value 11.8 sec (nl: up to 8) Anticoagulation Tx - No signs of fat embolism/DVT - coumadin 5 today with Goal INR from 2-3 ESRD on HD L foot wound culture - left foot ulcer, which grew E. faecalis, E. coli and Pseudomonas Left heel ulcer with evidence of acute osteomyelitis on bone scan - zosyn Nomocytic anemia - Aranesp 60mg on HD but will increase to 100mg. - s/p 1u prbc Other imagin-99% stenosis in proximal R SFA Echo: EF 40. RVSP 64 severe tricuspid regurg S/R/D/w Dr. Dozier <Marcial Dozier - Last Filed: 10/10/16 19:47> Objective - Vital Signs/Intake and Output Vital Signs (last 24 hours): Temp Pulse Resp BP Pulse Ox 99.1 F 73 16 122/65 95 10/10/16 16:30 10/10/16 16:30 10/10/16 16:30 10/10/16 16:30 10/10/16 16:30 Intake and Output: 10/10/16 10/11/16 18:59 06:59 Intake Total 240 Output Total 0 Balance 240 - Labs Labs: 10/10/16 08:00 10/10/16 08:00 PT 35.5 Seconds (9.9-11.8) H* 10/10/16 08:00 INR 3.29 (0.93-1.08) H 10/10/16 08:00 APTT 45.3 Seconds (23.7-30.8) H 10/10/16 08:00 Attending/Attestation - Attestation I have personally seen and examined this patient.: Yes I have fully participated in the care of the patient.: Yes I have reviewed all pertinent clinical information, including history, physical exam and plan: Yes
--- NOTE | 2016-10-09 16:13 | CP.PCM.PN ---
Addendum entered and electronically signed by Evan Contreras DO 10/10/16 07:57: Patient was seen and examined at bedside and case was discussed at length with Dr. Huggins. Patient slightly improved day by day, more alert, speaking in full coherent sentences. Still some residual post operative pain. INR now therapeutic. Appreciate all recs from Podiatry, ID, Nephro, Hem/Onc, and Ortho. Pending placement in acute rehab or [facility]. Spoke with CM. Evan Contreras D.O. PGY-2 Original Note: <VONDA HUGGINS - Last Filed: 10/09/16 17:06> Subjective - Date & Time of Evaluation Date of Evaluation: 10/09/16 Time of Evaluation: 06:45 - Subjective Subjective: Vonda Huggins D.O. PGY1 - Internal Medicine Progress Note - Carla/Harish Service Patient seen and examined at beside. No acute overnight events reported. Patient appears comfortable, and mental status appears improved since yesterday , but she still occasionally stares blankly during conversation. Patient is complaining of only mild pain in her right leg stump, otherwise she denies any pain. Family reports that she still appears somewhat confused, though steadily improving. Objective - Vital Signs/Intake and Output Vital Signs (last 24 hours): Temp Pulse Resp BP Pulse Ox 98.3 F 54 L 19 163/59 H 98 10/09/16 11:47 10/09/16 15:37 10/09/16 11:47 10/09/16 15:37 10/09/16 06:00 Intake and Output: 10/09/16 10/09/16 06:59 18:59 Intake Total 781 Output Total 400 Balance 381 - Medications Medications: Current Medications Acetaminophen (Tylenol 650mg/20.3ml Solution Ud) 650 mg PO Q6H PRN PRN Reason: Temperature Last Admin: 10/07/16 19:34 Dose: 650 mg Acetaminophen (Tylenol 650 Mg Supp) 650 mg RC Q4H PRN PRN Reason: Fever >100.4 F Last Admin: 10/06/16 23:24 Dose: 650 mg Albuterol/Ipratropium (Duoneb 3 Mg/0.5 Mg (3 Ml) Ud) 3 ml IH Q4H PRN PRN Reason: Shortness of Breath Last Admin: 10/03/16 07:50 Dose: 3 ml Alprazolam (Xanax) 0.5 mg PO TID PRN PRN Reason: Anxiety Amiodarone HCl (Cordarone) 200 mg PO DAILY [facility] Last Admin: 10/09/16 11:00 Dose: 200 mg Amlodipine Besylate (Norvasc) 10 mg PO DAILY [facility] Last Admin: 10/09/16 10:59 Dose: 10 mg Aspirin (Ecotrin) 81 mg PO DAILY [facility] Last Admin: 10/09/16 10:58 Dose: 81 mg Atorvastatin Calcium (Lipitor) 80 mg PO DIN [facility] Last Admin: 10/08/16 17:52 Dose: 80 mg Carbidopa/Levodopa (Sinemet 10/100) 1 tab PO TID [facility] Last Admin: 10/09/16 15:35 Dose: 1 tab Carvedilol (Coreg) 6.25 mg PO Q12 [facility] Last Admin: 10/09/16 11:01 Dose: Not Given Clonidine HCl (Catapres) 0.3 mg PO Q8 [facility] Last Admin: 10/09/16 15:37 Dose: 0.3 mg Docusate Sodium (Colace) 100 mg PO DAILY [facility] Last Admin: 10/09/16 11:03 Dose: 100 mg Escitalopram Oxalate (Lexapro) 10 mg PO DAILY [facility] Last Admin: 10/09/16 10:58 Dose: 10 mg Folic Acid (Folic Acid) 1 mg PO DAILY [facility] Last Admin: 10/09/16 10:58 Dose: 1 mg Gabapentin (Neurontin) 100 mg PO BID [facility] PRN Reason: Protocol Last Admin: 10/09/16 10:58 Dose: 100 mg Hydralazine HCl (Apresoline) 100 mg PO Q8H [facility] Last Admin: 10/09/16 11:24 Dose: Not Given Piperacillin Sod/Tazobactam Sod (Zosyn 2.25 Gm In 0.9% 100 Ml) 2.25 gm in 100 mls @ 100 mls/hr IVPB Q8 [facility] PRN Reason: Protocol Stop: 10/14/16 07:01 Last Admin: 10/09/16 15:37 Dose: 100 mls/hr Insulin Detemir (Levemir) 6 unit SC BID [facility] Last Admin: 10/09/16 11:02 Dose: 6 unit Insulin Human Lispro (Humalog High) 0 units SC ACHS [facility] PRN Reason: Protocol Last Admin: 10/09/16 12:28 Dose: 7 units Lisinopril (Zestril) 80 mg PO DAILY [facility] Last Admin: 10/09/16 10:59 Dose: 80 mg Ondansetron HCl (Zofran Inj) 4 mg IVP ONCE PRN PRN Reason: Nausea/Vomiting Pantoprazole Sodium (Protonix Inj) 40 mg IVP DAILY [facility] Last Admin: 10/09/16 11:05 Dose: 40 mg Primidone (Mysoline) 50 mg PO DAILY [facility] Last Admin: 10/09/16 10:58 Dose: 50 mg Sertraline HCl (Zoloft) 25 mg PO HS [facility] Last Admin: 10/08/16 21:13 Dose: 25 mg Sevelamer HCl (Renagel) 800 mg PO TID [facility] Last Admin: 10/09/16 15:33 Dose: 800 mg Warfarin Sodium (Coumadin) 5 mg PO 1800 [facility] PRN Reason: Protocol Zinc Sulfate (Zinc Sulfate 220 Mg Cap) 220 mg PO DAILY [facility] Last Admin: 10/09/16 10:58 Dose: 220 mg - Labs Labs: 10/09/16 07:00 10/09/16 07:00 PT 23.4 Seconds (9.9-11.8) H 10/09/16 07:00 INR 2.17 (0.93-1.08) H 10/09/16 07:00 APTT 65.4 Seconds (23.7-30.8) H 10/09/16 07:00 - Constitutional Appears: Non-toxic, No Acute Distress, Confused, Chronically Ill - Head Exam Head Exam: ATRAUMATIC, NORMOCEPHALIC - Eye Exam Eye Exam: EOMI, Normal appearance - ENT Exam ENT Exam: Mucous Membranes Moist - Neck Exam Neck Exam: Normal Inspection - Respiratory Exam Respiratory Exam: Clear to Ausculation Bilateral. absent: Rales, Rhonchi, Wheezes - Cardiovascular Exam Cardiovascular Exam: RRR, +S1, +S2 - GI/Abdominal Exam GI & Abdominal Exam: Soft. absent: Tenderness - Extremities Exam Additional comments: Right BKA, splinted and wrapped, moderately tender tender. Left foot offloading boot in place. Small 0.4 x 0.5 cm ulcer on left ankle, no bleeding or drainage. - Neurological Exam Neurological Exam: Alert, Awake, CN II-XII Intact Neuro motor strength exam: Left Upper Extremity: 4 (4+), Right Upper Extremity: 4 (4+), Left Lower Extremity: 4 (4+) Additional comments: Oriented x2 - Psychiatric Exam Psychiatric exam: Flat Affect Additional comments: Appears confused - Skin Skin Exam: Dry, Intact Assessment and Plan - Assessment and Plan (Free Text) Assessment: 66 yo F with a PMH of Antiphospholipid syndrome, ESRD on Dialysis T/R/Sa, CAD/ CABG, IDDM, Depression, Seizure Disorder, GERD, CHF Systolic and Diastolic Dysfunction, Parkinsons Disease, past DVTs, s/p R BKA, s/p CABG who initially presented complaining of a fall. After the fall, daughter says that patient was confused, said strange things, but quickly regained orientation. XR on admission showed right femur fracture, now s/p ORIF. She is also being treated for diabetic foot ulcer. Today she continues to have altered mental status. Plan: 1. R femur fracture s/p witnessed mechanical fall - POD #4 ORIF with Ortho, doing well - Neurology Dr. Linares consulted, appreciate all recs - Cardio Dr. Mon consulted, appreciate all recs - Monitoring closely post op - Continue percocet for pain - Pending placement for acute rehab for d/c 2. Altered mental status - likely 2/2 acute ischemic stroke vs delirium vs narcotic AE - Mental status has been altered since the surgery, slightly improved since yesterday - Brain MRI yesterday, significant for acute 2mm cortical infarct in left occipital lobe, not present on brain MRI in 06/2016 - Neurology (Milagros) on consult, recommended continue current medications, and observation, appreciate all recs - Several contraindications for tPA administration were present, including recent head trauma, recent heparin administration, and hypertension - MRA neck shows less than 60% stenosis at the origin of the left ICA - Continue to monitor closely for any acute worsening in mental status or focal neurologic deficits 3. Hx Antiphospholipid syndrome - Decrease warfarin from 7.5mg to 5mg as per Hem/Onc, INR now therapeutic - Stop heparin drip - Consult Heme/Onc Dr. Dozier, appreciate all recs 4. Anemia - Likely 2/2 blood loss from surgery and dilutional - s/p one unit PRBC transfusion, anemia improving, continue to monitor 5. ESRD on Dialysis - Nephro Dr. Eller consulted, appreciate all recs, cont HD - Continue Sevelamer - BUN and Cr stable 6. Hx CAD, CHF, HTN - BP remains elevated, change Hydralazine from PRN to tarik - Continue all other home medications - Cardio Dr. Mon following 7. IDDM - Continue levimir 6u BID - Continue lispro sliding scale to high dose protocol - Continue accuchecks 8. Chronic LLE Ankle Ulcer - Wound Culture positive for pseudomonas - Podiatry Dr. Issa following, appreciate all recs - Continue IV zosyn - Start SCD for left leg in an attempt to improve blood flow to the extremity 9. Hx Parkinsons disease - Continue home Carbidopa/Levodopa - Neuro (Ansalmi) recommends outpatient f/u 10. Hx Seizure Disorder - Continue home gabapentin and primidone 11. Hx of Depression and anxiety - Continue Escitalopram, Alprazolam, Sertraline 12. GERD - Continue home protonix GI/DVT ppx: protonix/warfarin gtt Patient was seen and examined and case was discussed at length with senior resident Dr. Contreras PGY2 attending Dr. Morton. <Alexey Morton - Last Filed: 10/21/16 17:08> Objective - Vital Signs/Intake and Output Vital Signs (last 24 hours): Temp Pulse Resp BP Pulse Ox 99.1 F 73 16 122/65 95 10/10/16 16:30 10/10/16 16:30 10/10/16 16:30 10/10/16 16:30 10/10/16 16:30 - Labs Labs: 10/10/16 08:00 10/10/16 08:00 PT 35.5 Seconds (9.9-11.8) H* 10/10/16 08:00 INR 3.29 (0.93-1.08) H 10/10/16 08:00 APTT 45.3 Seconds (23.7-30.8) H 10/10/16 08:00 Attending/Attestation - Attestation I have personally seen and examined this patient.: Yes I have fully participated in the care of the patient.: Yes I have reviewed all pertinent clinical information, including history, physical exam and plan: Yes Notes (Text): 10/21/16 17:07 Medical record note made by the resident after discussion with my direction and input after the patient was personally seen and examined by me. I have reviewed the chart and agree that the record accurately reflects by personal performance of the history, physical exam, data review, and medical decision-making, in the course for the patient. I have also personally directed the plan of care.
[2016-10-10] MEDS: Piperacillin/Tazobact 2.25gm 2.25 GM/100 ML BAG IVPB SCH ×2 (05:11→15:40)
--- NOTE | 2016-10-10 07:47 | CP.PCM.PN ---
<Nelia Jacobs - Last Filed: 10/10/16 11:48> Subjective - Date & Time of Evaluation Date of Evaluation: 10/10/16 Time of Evaluation: 07:46 - Subjective Subjective: PGY-[address] Dozier Pt lying comfortably in bed. stating pain in R thigh Educated pt re: using red call norris to get pain med pt verbalized understanding Objective - Vital Signs/Intake and Output Vital Signs (last 24 hours): Temp Pulse Resp BP Pulse Ox 99.5 F 59 L 18 188/67 H 96 10/10/16 07:34 10/10/16 07:34 10/10/16 07:34 10/10/16 07:34 10/10/16 07:34 Intake and Output: 10/10/16 10/10/16 06:59 18:59 Intake Total 100 Balance 100 - Medications Medications: Current Medications Acetaminophen (Tylenol 650mg/20.3ml Solution Ud) 650 mg PO Q6H PRN PRN Reason: Temperature Last Admin: 10/07/16 19:34 Dose: 650 mg Acetaminophen (Tylenol 650 Mg Supp) 650 mg RC Q4H PRN PRN Reason: Fever >100.4 F Last Admin: 10/06/16 23:24 Dose: 650 mg Albuterol/Ipratropium (Duoneb 3 Mg/0.5 Mg (3 Ml) Ud) 3 ml IH Q4H PRN PRN Reason: Shortness of Breath Last Admin: 10/03/16 07:50 Dose: 3 ml Alprazolam (Xanax) 0.5 mg PO TID PRN PRN Reason: Anxiety Amiodarone HCl (Cordarone) 200 mg PO DAILY [facility] Last Admin: 10/09/16 11:00 Dose: 200 mg Amlodipine Besylate (Norvasc) 10 mg PO DAILY [facility] Last Admin: 10/09/16 10:59 Dose: 10 mg Aspirin (Ecotrin) 81 mg PO DAILY [facility] Last Admin: 10/09/16 10:58 Dose: 81 mg Atorvastatin Calcium (Lipitor) 80 mg PO DIN [facility] Last Admin: 10/09/16 18:34 Dose: 80 mg Carbidopa/Levodopa (Sinemet 10/100) 1 tab PO TID [facility] Last Admin: 10/09/16 18:41 Dose: 1 tab Carvedilol (Coreg) 6.25 mg PO Q12 [facility] Last Admin: 10/09/16 21:15 Dose: Not Given Clonidine HCl (Catapres) 0.3 mg PO Q8 [facility] Last Admin: 10/10/16 05:18 Dose: 0.3 mg Docusate Sodium (Colace) 100 mg PO DAILY [facility] Last Admin: 10/09/16 11:03 Dose: 100 mg Escitalopram Oxalate (Lexapro) 10 mg PO DAILY [facility] Last Admin: 10/09/16 10:58 Dose: 10 mg Folic Acid (Folic Acid) 1 mg PO DAILY [facility] Last Admin: 10/09/16 10:58 Dose: 1 mg Gabapentin (Neurontin) 100 mg PO BID [facility] PRN Reason: Protocol Last Admin: 10/09/16 18:34 Dose: 100 mg Hydralazine HCl (Apresoline) 100 mg PO Q8H [facility] Last Admin: 10/10/16 02:49 Dose: 100 mg Piperacillin Sod/Tazobactam Sod (Zosyn 2.25 Gm In 0.9% 100 Ml) 2.25 gm in 100 mls @ 100 mls/hr IVPB Q8 [facility] PRN Reason: Protocol Stop: 10/14/16 07:01 Last Admin: 10/10/16 05:11 Dose: 100 mls/hr Insulin Detemir (Levemir) 6 unit SC BID [facility] Last Admin: 10/09/16 18:41 Dose: 6 unit Insulin Human Lispro (Humalog High) 0 units SC ACHS [facility] PRN Reason: Protocol Last Admin: 10/09/16 21:15 Dose: Not Given Lisinopril (Zestril) 80 mg PO DAILY [facility] Last Admin: 10/09/16 10:59 Dose: 80 mg Ondansetron HCl (Zofran Inj) 4 mg IVP ONCE PRN PRN Reason: Nausea/Vomiting Pantoprazole Sodium (Protonix Inj) 40 mg IVP DAILY [facility] Last Admin: 10/09/16 11:05 Dose: 40 mg Primidone (Mysoline) 50 mg PO DAILY [facility] Last Admin: 10/09/16 10:58 Dose: 50 mg Sertraline HCl (Zoloft) 25 mg PO HS [facility] Last Admin: 10/09/16 21:07 Dose: 25 mg Sevelamer HCl (Renagel) 800 mg PO TID [facility] Last Admin: 10/09/16 18:34 Dose: 800 mg Warfarin Sodium (Coumadin) 5 mg PO 1800 [facility] PRN Reason: Protocol Last Admin: 10/09/16 18:33 Dose: 5 mg Zinc Sulfate (Zinc Sulfate 220 Mg Cap) 220 mg PO DAILY [facility] Last Admin: 10/09/16 10:58 Dose: 220 mg - Labs Labs: 10/09/16 07:00 10/09/16 07:00 PT 23.4 Seconds (9.9-11.8) H 10/09/16 07:00 INR 2.17 (0.93-1.08) H 10/09/16 07:00 APTT 65.4 Seconds (23.7-30.8) H 10/09/16 07:00 - Constitutional Appears: No Acute Distress - Head Exam Head Exam: NORMAL INSPECTION, NORMOCEPHALIC Additional comments: scab in face - Eye Exam Eye Exam: EOMI, Normal appearance, PERRL. absent: Scleral icterus Pupil Exam: NORMAL ACCOMODATION - ENT Exam ENT Exam: Mucous Membranes Moist - Neck Exam Neck Exam: absent: Meningismus - Respiratory Exam Respiratory Exam: Clear to Ausculation Bilateral. absent: Rales, Rhonchi, Wheezes - Cardiovascular Exam Cardiovascular Exam: REGULAR RHYTHM, +S1, +S2 - GI/Abdominal Exam GI & Abdominal Exam: Soft, Normal Bowel Sounds. absent: Guarding, Rigid, Tenderness - Extremities Exam Extremities Exam: Normal Capillary Refill, Pedal Edema Additional comments: R BKA, dressing d/i; L leg on scd and heel cushion. mild edema - Neurological Exam Neurological Exam: Alert, Awake, Oriented x3 - Psychiatric Exam Psychiatric exam: Normal Affect, Normal Mood - Skin Skin Exam: Dry, Warm Assessment and Plan - Assessment and Plan (Free Text) Plan: 66 years old female with ESRD on HD has Hx of DVTs, Antiphospholipid syndrome, PAD, questionable seizure Hx, has a high risk to venous and arterial thromboembolic events. Pt has coumadin coagulopathy. Pt sustained R femur fracture, and underwent ORIF with nail. Pt has cellulitis. Pt has delirium Acute Stroke - solidary 2 mm acute cortical infarct L occipital lobe - PT/OT/ST/swallow eval - ASA, high dose lipitor Antiphospholipid syndrome - hepatitis antibody titer negative - anticarlipin antibody POS - 12/18/2001: Factor II level 52% Factor V level was 28% (nl: 60-440) Factor V Leiden negative Factor XIII was 144 (n; 50-150) - Confirm: Hexagonal phospholipid titer value 11.8 sec (nl: up to 8) Anticoagulation Tx - No signs of fat embolism/DVT - coumadin 5 yesterday with Goal INR from 2-3 - hold coumadin today for INR 3.3 ESRD on HD L foot wound culture - left foot ulcer, which grew E. faecalis, E. coli and Pseudomonas Left heel ulcer with evidence of acute osteomyelitis on bone scan - zosyn Nomocytic anemia - Aranesp 60mg on HD but will increase to 100mg. - s/p 1u prbc Other imagin-99% stenosis in proximal R SFA Echo: EF 40. RVSP 64 severe tricuspid regurg S/R/D/w Dr. Dozier <Marcial Dozier P - Last Filed: 10/10/16 19:37> Objective - Vital Signs/Intake and Output Vital Signs (last 24 hours): Temp Pulse Resp BP Pulse Ox 99.1 F 73 16 122/65 95 10/10/16 16:30 10/10/16 16:30 10/10/16 16:30 10/10/16 16:30 10/10/16 16:30 Intake and Output: 10/10/16 10/11/16 18:59 06:59 Intake Total 240 Output Total 0 Balance 240 - Labs Labs: 10/10/16 08:00 10/10/16 08:00 PT 35.5 Seconds (9.9-11.8) H* 10/10/16 08:00 INR 3.29 (0.93-1.08) H 10/10/16 08:00 APTT 45.3 Seconds (23.7-30.8) H 10/10/16 08:00 Attending/Attestation - Attestation I have personally seen and examined this patient.: Yes I have fully participated in the care of the patient.: Yes I have reviewed all pertinent clinical information, including history, physical exam and plan: Yes
[2016-10-10 08:56] LABS: BASO # 0.04 K/mm3 (0.0-2.0); BASO % 0.4 % (0.0-3.0); EOS # 0.2 (0.0-0.7); EOS % 2.4 % (1.5-5.0); GRAN # 7.07 (1.4-6.5); GRAN % 77.5 % (50.0-68.0); HEMOGLOBIN 9.8 gm/dL (12.0-16.0); LYMPH % 10.8 % (22.0-35.0); MEAN CELL VOLUME 85.4 fL (80.0-105.0); MEAN CORPUSCULAR HEMOGLOBIN 27.5 pg (25.0-35.0); MEAN CORPUSCULAR HGB CONC 32.2 g/dl (31.0-37.0); MEAN PLATELET VOLUME 11.3 fl (7.0-11.0); MONO # 0.8 (0.1-0.6); MONO % 8.9 % (1.0-6.0); PLATELET COUNT 260 10^3/uL (120.0-450.0); RBC 3.56 10^6/uL (3.5-6.1); RED CELL DISTRIBUTION WIDTH 16.8 % (11.5-14.5); WHITE BLOOD COUNT 9.1 10^3/ul (4.5-11.0)
[2016-10-10 09:09] LABS: ALB/GLOB RATIO 1.1 (1.1-1.8); ALBUMIN 3.5 g/dL (3.0-4.8); CALCIUM 9.6 mg/dL (8.4-10.5)
[2016-10-10 09:11] LABS: INR 3.29 (0.93-1.08); PARTIAL THROMBOPLASTIN TIME 45.3 Seconds (23.7-30.8); PROTHROMBIN TIME 35.5 Seconds (9.9-11.8)
[2016-10-10] MEDS: Acetaminophen 650mg/20.3ml solution UD PO PRN (14:57)
--- NOTE | 2016-10-10 15:20 | CP.PCM.CON ---
History of Present Illness - History of Present Illness History of Present Illness: The patient is a 66 year-old woman who [facility]. The patient's past medical history is unclear for whether the patient had a mechanical fall versus a syncopal episode. Past Medical History: Coronary Artery disease Coronary bypass surgery early this year at [facility]. In addition, the patient suffers from HTN and Hypercholesterolemia. She is currently being treated with dialysis for her end stage renal disease. Review of Systems - Review of Systems Systems not reviewed;Unavailable: Acuity of Condition Past Patient History - Infectious Disease Hx of Infectious Diseases: None - Tetanus Immunizations Tetanus Immunization: Unknown - Past Medical History & Family History Past Medical History?: Yes - Past Social History Smoking Status: Former Smoker - CARDIAC Hx Cardiac Disorders: Yes (CAD ,DVT) Hx Hypertension: Yes - PULMONARY Hx Respiratory Disorders: Yes - NEUROLOGICAL Hx Neurological Disorder: Yes Hx Dizziness: Yes (syncope) - HEENT Hx HEENT Problems: Yes Other/Comment: wear glasses,L ear LITTLE TRAVERSE - RENAL Hx Chronic Kidney Disease: Yes Hx Dialysis: Yes ([facility] T,TH,SAT) Date of Last Dialysis Treatment: 10/01/16 Hx Renal Failure: Yes - ENDOCRINE/METABOLIC Hx Endocrine Disorders: Yes Hx Diabetes Mellitus Type 2: Yes - HEMATOLOGICAL/ONCOLOGICAL Hx Blood Disorders: Yes - INTEGUMENTARY Hx Dermatological Problems: Yes Other/Comment: L great toe amputated,RT BKA - MUSCULOSKELETAL/RHEUMATOLOGICAL Hx Musculoskeletal Disorders: Yes Hx Falls: No Other/Comment: RT BKA - GASTROINTESTINAL Hx Gastrointestinal Disorders: Yes Hx Diverticulitis: Yes Hx Gastroesophageal Reflux: Yes Other/Comment: hx of c-diff - GENITOURINARY/GYNECOLOGICAL Hx Genitourinary Disorders: No - PSYCHIATRIC Hx Psychophysiologic Disorder: Yes Hx Anxiety: Yes Hx Depression: Yes Hx Substance Use: No - SURGICAL HISTORY Hx Amputation: Yes (L Great toe.RT BKA) Hx Coronary Artery Bypass Graft: Yes Hx Open Heart Surgery: Yes - ANESTHESIA Hx Anesthesia: Yes Hx Anesthesia Reactions: No Hx Malignant Hyperthermia: No Meds Home Medications: Home Medication List Medication Instructions Recorded Confirmed Type Insulin Detemir [Levemir] 6 unit SC BID unit 10/10/16 Rx Insulin Lispro-HIGH [humALOG HIGH] 0 units SC ACHS ml 10/10/16 Rx Warfarin Sodium 4 mg PO DAILY #30 tablet 10/10/16 Rx Allergies/Adverse Reactions: Allergies Allergy/AdvReac Type Severity Reaction Status Date / Time ciprofloxacin Allergy SWELLING Verified 10/01/16 17:12 clarithromycin [From Biaxin] Allergy SWELLING Verified 10/01/16 17:12 pepper Allergy SWELLING Verified 10/01/16 17:12 - Medications Medications: Current Medications Acetaminophen (Tylenol 650mg/20.3ml Solution Ud) 650 mg PO Q6H PRN PRN Reason: Temperature Last Admin: 10/10/16 14:57 Dose: 650 mg Acetaminophen (Tylenol 650 Mg Supp) 650 mg RC Q4H PRN PRN Reason: Fever >100.4 F Last Admin: 10/06/16 23:24 Dose: 650 mg Albuterol/Ipratropium (Duoneb 3 Mg/0.5 Mg (3 Ml) Ud) 3 ml IH Q4H PRN PRN Reason: Shortness of Breath Last Admin: 10/03/16 07:50 Dose: 3 ml Alprazolam (Xanax) 0.5 mg PO TID PRN PRN Reason: Anxiety Amiodarone HCl (Cordarone) 200 mg PO DAILY [facility] Last Admin: 10/09/16 11:00 Dose: 200 mg Amlodipine Besylate (Norvasc) 10 mg PO DAILY [facility] Last Admin: 10/09/16 10:59 Dose: 10 mg Aspirin (Ecotrin) 81 mg PO DAILY [facility] Last Admin: 10/09/16 10:58 Dose: 81 mg Atorvastatin Calcium (Lipitor) 80 mg PO DIN [facility] Last Admin: 10/09/16 18:34 Dose: 80 mg Carbidopa/Levodopa (Sinemet 10/100) 1 tab PO TID [facility] Last Admin: 10/10/16 14:53 Dose: 1 tab Carvedilol (Coreg) 6.25 mg PO Q12 [facility] Last Admin: 10/09/16 21:15 Dose: Not Given Clonidine HCl (Catapres) 0.3 mg PO Q8 [facility] Last Admin: 10/10/16 14:54 Dose: 0.3 mg Docusate Sodium (Colace) 100 mg PO DAILY [facility] Last Admin: 10/09/16 11:03 Dose: 100 mg Escitalopram Oxalate (Lexapro) 10 mg PO DAILY [facility] Last Admin: 10/09/16 10:58 Dose: 10 mg Folic Acid (Folic Acid) 1 mg PO DAILY [facility] Last Admin: 10/09/16 10:58 Dose: 1 mg Gabapentin (Neurontin) 100 mg PO BID [facility] PRN Reason: Protocol Last Admin: 10/09/16 18:34 Dose: 100 mg Hydralazine HCl (Apresoline) 100 mg PO Q8H [facility] Last Admin: 10/10/16 14:57 Dose: 100 mg Piperacillin Sod/Tazobactam Sod (Zosyn 2.25 Gm In 0.9% 100 Ml) 2.25 gm in 100 mls @ 100 mls/hr IVPB Q8 [facility] PRN Reason: Protocol Stop: 10/14/16 07:01 Last Admin: 10/10/16 05:11 Dose: 100 mls/hr Insulin Detemir (Levemir) 6 unit SC BID [facility] Last Admin: 10/09/16 18:41 Dose: 6 unit Insulin Human Lispro (Humalog High) 0 units SC ACHS [facility] PRN Reason: Protocol Last Admin: 10/09/16 21:15 Dose: Not Given Lisinopril (Zestril) 80 mg PO DAILY [facility] Last Admin: 10/09/16 10:59 Dose: 80 mg Ondansetron HCl (Zofran Inj) 4 mg IVP ONCE PRN PRN Reason: Nausea/Vomiting Pantoprazole Sodium (Protonix Inj) 40 mg IVP DAILY [facility] Last Admin: 10/09/16 11:05 Dose: 40 mg Primidone (Mysoline) 50 mg PO DAILY [facility] Last Admin: 10/09/16 10:58 Dose: 50 mg Sertraline HCl (Zoloft) 25 mg PO HS [facility] Last Admin: 10/09/16 21:07 Dose: 25 mg Sevelamer HCl (Renagel) 800 mg PO TID [facility] Last Admin: 10/10/16 14:53 Dose: 800 mg Warfarin Sodium (Coumadin) 5 mg PO 1800 [facility] PRN Reason: Protocol Last Admin: 10/09/16 18:33 Dose: 5 mg Zinc Sulfate (Zinc Sulfate 220 Mg Cap) 220 mg PO DAILY [facility] Last Admin: 10/09/16 10:58 Dose: 220 mg Physical Exam - Constitutional Appears: Other (Pt is in bed, nostalgic, unable to give good history.) - Respiratory Exam Respiratory Exam: Decreased Breath Sounds - Cardiovascular Exam Cardiovascular Exam: +S1, +S2. absent: JVD - Extremities Exam Extremities exam: Negative for: pedal edema Results - Vital Signs Recent Vital Signs: Last Vital Signs Temp 99.5 F 10/10/16 07:34 Pulse 59 L 10/10/16 07:34 Resp 18 10/10/16 07:34 BP 190/130 H 10/10/16 14:54 Pulse Ox 96 10/10/16 07:34 - Labs Result Diagrams: 10/10/16 08:00 10/10/16 08:00 Labs: Laboratory Results - last 24 hr 10/07/16 10/09/16 10/09/16 12:40 16:18 21:14 WBC RBC Hgb Hct MCV MCH MCHC RDW Plt Count MPV Gran % Lymph % (Auto) [place] % (Auto) Eos % (Auto) Baso % (Auto) Gran # Lymph # [place] # Eos # Baso # PT INR APTT Sodium Potassium Chloride Carbon Dioxide Anion Gap BUN Creatinine Est GFR ( Amer) Est GFR (Non-Af Amer) POC Glucose (mg/dL) 233 H 222 H Random Glucose Calcium Total Bilirubin AST ALT Alkaline Phosphatase Total Protein Albumin Globulin Albumin/Globulin Ratio Crossmatch See Detail 10/10/16 10/10/16 10/10/16 08:00 08:00 08:00 WBC 9.1 D RBC 3.56 Hgb 9.8 L Hct 30.4 L MCV 85.4 MCH 27.5 MCHC 32.2 RDW 16.8 H Plt Count 260 MPV 11.3 H Gran % 77.5 H Lymph % (Auto) 10.8 L [place] % (Auto) 8.9 H Eos % (Auto) 2.4 Baso % (Auto) 0.4 Gran # 7.07 H Lymph # 1.0 L [place] # 0.8 H Eos # 0.2 Baso # 0.04 PT 35.5 H* INR 3.29 H APTT 45.3 H Sodium 137 Potassium 4.2 Chloride 98 Carbon Dioxide 23 Anion Gap 20 BUN 58 H Creatinine 6.2 H Est GFR ( Amer) 8 Est GFR (Non-Af Amer) 7 POC Glucose (mg/dL) Random Glucose 134 H Calcium 9.6 Total Bilirubin 0.5 AST 30 ALT 15 Alkaline Phosphatase 150 H Total Protein 6.9 Albumin 3.5 Globulin 3.3 Albumin/Globulin Ratio 1.1 Crossmatch - Impressions Impression: Laboratory was reviewed. EKG: Shows no acute changes. Assessment & Plan - Assessment and Plan (Free Text) Assessment: 1) Mechanical fall versus syncope 2) End stage Renal Disease 3) HTN 4) DM 5) Fracture on XR noted Plan: Given these findings, will obtained an echocardiogram to evaluate her LV function. Her previous ejection fraction was approximately 50% prior to surgery. - Date & Time Date: 10/02/16 Time: 14:40
[2016-10-10 17:14] VITALS: BP 122/65; PULSE 73; RESP 16; TEMP 99.1; O2SAT 95
--- NOTE | 2016-10-10 23:11 | CP.PCM.DIS ---
Provider - Provider Date of Admission: 10/01/16 20:56 Attending physician: Wm Aguirre MD Consults: Ortho: Robin Cardio: Elieser Nephro: Rafita Podiatry: Luis Maunel Neuro: Anselmi ID: Israel Heme/Onc: Tasia Time Spent in preparation of Discharge (in minutes): 60 Diagnosis - Discharge Diagnosis (1) Altered mental status Status: Acute Priority: High (2) Anticoagulant long-term use Status: Chronic Priority: High (3) CHF (congestive heart failure) Status: Chronic Priority: High (4) Diabetic foot ulcer Status: Chronic Priority: Medium (5) Fracture, hip Status: Acute Priority: High (6) Head injury Status: Acute Priority: High (7) Hyperglycemia Status: Chronic Priority: Medium (8) Syncope Status: Chronic Priority: High (9) ESRD on dialysis Status: Chronic Priority: High Hospital Course - Lab Results Lab Results: Micro Results 10/07/16 00:45 Blood-Venous Blood Culture - Preliminary NO GROWTH AFTER 3 DAYS 10/07/16 00:35 Blood-Venous Blood Culture - Preliminary NO GROWTH AFTER 3 DAYS 10/01/16 23:30 Buttock Gram Stain - Final 10/01/16 23:30 Buttock Wound Culture - Final Enterococcus Faecalis Escherichia Coli 10/01/16 23:30 Foot - Left Gram Stain - Final 10/01/16 23:30 Foot - Left Wound Culture - Final Pseudomonas Aeruginosa Most Recent Lab Values WBC 9.1 10^3/ul (4.5-11.0) D 10/10/16 08:00 RBC 3.56 10^6/uL (3.5-6.1) 10/10/16 08:00 Hgb 9.8 gm/dL (12.0-16.0) L 10/10/16 08:00 Hct 30.4 % (36.0-48.0) L 10/10/16 08:00 MCV 85.4 fL (80.0-105.0) 10/10/16 08:00 MCH 27.5 pg (25.0-35.0) 10/10/16 08:00 MCHC 32.2 g/dl (31.0-37.0) 10/10/16 08:00 RDW 16.8 % (11.5-14.5) H 10/10/16 08:00 Plt Count 260 10^3/uL (120.0-450.0) 10/10/16 08:00 MPV 11.3 fl (7.0-11.0) H 10/10/16 08:00 Gran % 77.5 % (50.0-68.0) H 10/10/16 08:00 Lymph % (Auto) 10.8 % (22.0-35.0) L 10/10/16 08:00 [place] % (Auto) 8.9 % (1.0-6.0) H 10/10/16 08:00 Eos % (Auto) 2.4 % (1.5-5.0) 10/10/16 08:00 Baso % (Auto) 0.4 % (0.0-3.0) 10/10/16 08:00 Gran # 7.07 (1.4-6.5) H 10/10/16 08:00 Lymph # 1.0 (1.2-3.4) L 10/10/16 08:00 [place] # 0.8 (0.1-0.6) H 10/10/16 08:00 Eos # 0.2 (0.0-0.7) 10/10/16 08:00 Baso # 0.04 K/mm3 (0.0-2.0) 10/10/16 08:00 PT 35.5 Seconds (9.9-11.8) H* 10/10/16 08:00 INR 3.29 (0.93-1.08) H 10/10/16 08:00 APTT 45.3 Seconds (23.7-30.8) H 10/10/16 08:00 pO2 49 mm/Hg (30-55) 10/07/16 00:35 VBG pH 7.36 (7.32-7.43) 10/07/16 00:35 VBG pCO2 41.0 (40-60) 10/07/16 00:35 VBG HCO3 23.2 mmol/l (21-28) 10/07/16 00:35 VBG Total CO2 24.5 mmol.L (22-28) 10/07/16 00:35 VBG O2 Sat (Calc) 85.2 % (40-65) H 10/07/16 00:35 VBG Base Excess -2.2 mmol/L (0.0-2.0) L 10/07/16 00:35 VBG Potassium 4.4 mmol/L (3.6-5.2) 10/07/16 00:35 Sodium 134.0 mmol/L (132-148) 10/07/16 00:35 Chloride 104.0 mmol/L (98-107) 10/07/16 00:35 Glucose 262 mg/dl (65-105) H 10/07/16 00:35 Lactate 0.9 mmol/L (0.7-2.1) 10/07/16 00:35 FiO2 21.0 % 10/07/16 00:35 Sodium 137 mmol/L (132-148) 10/10/16 08:00 Potassium 4.2 mmol/L (3.6-5.0) 10/10/16 08:00 Chloride 98 mmol/L (95-110) 10/10/16 08:00 Carbon Dioxide 23 mmol/L (21-33) 10/10/16 08:00 Anion Gap 20 (10-20) 10/10/16 08:00 BUN 58 mg/dL (7-21) H 10/10/16 08:00 Creatinine 6.2 mg/dL (0.5-1.4) H 10/10/16 08:00 Est GFR ( Amer) 8 10/10/16 08:00 Est GFR (Non-Af Amer) 7 10/10/16 08:00 POC Glucose (mg/dL) 222 mg/dL (65-110) H 10/09/16 21:14 Random Glucose 134 mg/dL (70-110) H 10/10/16 08:00 Calcium 9.6 mg/dL (8.4-10.5) 10/10/16 08:00 Phosphorus 5.0 mg/dL (2.5-4.5) H 10/09/16 07:00 Magnesium 2.3 mg/dL (1.7-2.2) H 10/09/16 07:00 Total Bilirubin 0.5 mg/dL (0.2-1.3) 10/10/16 08:00 AST 30 U/L (15-39) 10/10/16 08:00 ALT 15 U/L (7-56) 10/10/16 08:00 Alkaline Phosphatase 150 U/L (38-133) H 10/10/16 08:00 Lactate Dehydrogenase 633 U/L (333-699) 10/01/16 17:40 Total Creatine Kinase 77 U/L (35-230) 10/01/16 17:40 Troponin I 0.05 ng/mL D 10/01/16 17:40 Total Protein 6.9 g/dL (5.8-8.3) 10/10/16 08:00 Albumin 3.5 g/dL (3.0-4.8) 10/10/16 08:00 Globulin 3.3 gm/dL 10/10/16 08:00 Albumin/Globulin Ratio 1.1 (1.1-1.8) 10/10/16 08:00 Procalcitonin 2.31 NG/ML (0.19-0.49) H 10/07/16 06:00 TSH 3rd Generation 5.27 mIU/mL (0.46-4.68) H 10/02/16 07:10 Venous Blood Potassium 4.4 mmol/L (3.6-5.2) 10/07/16 00:35 Blood Type B NEGATIVE 10/07/16 12:40 Antibody Screen Negative 10/07/16 12:40 Crossmatch See Detail 10/07/16 12:40 BBK History Checked Patient has bt 10/07/16 12:40 - Hospital Course Hospital Course: 66 yo F with a PMH of Antiphospholipid syndrome, ESRD on Dialysis T/R/Sa, CAD/ CABG, IDDM, Depression, Seizure Disorder, GERD, CHF Systolic and Diastolic Dysfunction, Parkinsons Disease, past DVTs, s/p R BKA, s/p CABG who initially presented complaining of a fall. After the fall, daughter says that patient was confused, said strange things, but quickly regained orientation. XR on admission showed right femur fracture. On admission, fall was concerning for syncope vs mechanical. Ortho was consulted and planned ORIF R femur, but patient was supratherapeutic on coumadin, so ortho requested type and cross for PRBCs and FFP. This was particularly concerning because of her PMH of antiphospholipid syndrome, which previously contributed to complications with previous surgeries ultimately resulting in right BKA. She also had poorly controlled diabetes and hypertension, in addition to ESRD on HD. On day 3, she was given Vit K, and overnight received FFP, at which point her INR normalized, prior to her surgery the following morning. She tolerated the surgery well, but remained minimally responsive after surgery likely due to anaesthesia retention due to ESRD on HD. After speaking to ortho, floydo, and abbe, heparin was scheduled to start 24 hours after the surgery to bridge until therapeutic on warfarin. That day, she was also started on IV Abx for decubitus and diabetic foot ulcer, and levimir was increased from 4u AMHS to 6u AMHS. The following day , heparin was started SC before drip to avoid potential bleeding complications. After HD, she remained somnolent and in an altered mental state, 2/2 to delerium vs narcotics. Pain meds were subsequently decreased on 10/06 and SC heparin was switched to a drip and warfarin was started. She continued to have altered mental status, but showed very slight improvement in alertness. Overnight, she had a fever and antibiotics were switched by ID, who continued to follow through her stay. On 10/07, she exhibited some right sided weakness and persistent altered mental status; stat MRI showed new 2mm cortical infarct in left occipital lobe. Over the next three days, she remained on the heparin drip until she reached a therapeutic INR on coumadin, and her clinical status was monitored, and continual gradual improvement was noted in her mental status and orientation. Today, she complained of moderate pain in her right leg. Her mental status appears to be significantly improved since the surgery, and her orientation improved dramatically. She also began to grimace and complain appropriately of pain in her right leg. Before discharge, she was also being followed by neurology (Dr. Linares) for altered mental status and history of Parkinson disease. All medications were discussed with her and her family, questions were answered to family's satisfaction, and she was discharged to [facility]. Patient was seen, discussed, and reviewed with senior resident Dr. Contreras PGY2 and attending Dr. Aguirre. Discharge Exam - Head Exam Head Exam: NORMAL INSPECTION, NORMOCEPHALIC - Eye Exam Eye Exam: EOMI, Normal appearance - ENT Exam ENT Exam: Mucous Membranes Moist - Neck Exam Neck exam: Normal Inspection - Respiratory Exam Respiratory Exam: Clear to PA & Lateral. absent: Rales, Rhonchi, Wheezes - Cardiovascular Exam Cardiovascular Exam: RRR, +S1, +S2 - GI/Abdominal Exam GI & Abdominal Exam: Normal Bowel Sounds, Soft. absent: Tenderness - Extremities Exam Additional comments: Right BKA, splinted and wrapped, moderately tender tender. Left foot offloading boot in place. Small 0.4 x 0.3 cm ulcer on left ankle, no bleeding or drainage. - Neurological Exam Neurological exam: Alert, CN II-XII Intact Additional comments: Oriented x2 - Psychiatric Exam Psychiatric exam: Normal Affect, Normal Mood - Skin Skin Exam: Dry, Intact Discharge Plan - Discharge Medications Prescriptions: Warfarin Sodium 4 mg PO DAILY #30 tablet - Follow Up Plan Condition: FAIR Disposition: REHAB FACILITY/REHAB UNIT Instructions: Syncope (DC), Syncope (GEN), Cigarette Smoking and Your Health ( GEN), Fall Prevention for Older Adults (GEN), Altered Mental Status (GEN) Additional Instructions: 1. Continue to take all medications as prescribed; discontinue Warfarin 10mg daily, instead start Warfarin 4mg daily 2. Get INR checked every other day 3. All medications and instructions discussed with family 4. Follow up with PCP within 2 weeks 5. Continue physical therapy at [facility] 6. For any new or worsening symptoms or concerns, contact PCP immediately or return to ED Referrals: Fuad Linares MD [Staff Provider] -
--- NOTE | 2016-10-11 09:22 | PN ---
DATE: 10/10/2016 SUBJECTIVE: The patient is seen earlier this morning in 562, bed 1. No fevers. No chills. No nausea or vomiting. PHYSICAL EXAMINATION VITAL SIGNS: Temperature is 98, blood pressure is 120/70, respiratory rate of 16. HEENT: Unremarkable. NECK: Supple. LUNGS: Decreased breath sounds. HEART: Normal S1, S1. ABDOMEN: Soft, nontender. LABORATORY DATA: Reveals the patient's white count is 9.1, hemoglobin of 9, platelets of 260. BUN of 50, creatinine of 6.2. Microbiology reveals the foot culture has Pseudomonas, buttock culture has Enterococcus and E-coli and the Pseudomonas is pansensitive. The patient had a neck MRA read by Dr. Eagle Davis, mild stenosis of less than 60% of the origin of the left internal carotid. Dr. Anabel Willingham's note is reviewed and noted. ASSESSMENT AND PLAN: A 66-year-old female with new onset of fever, no evidence of a new onset of sepsis and a left foot ulcer grew Enterococcus, Escherichia coli, and Pseudomonas and acute left occipital lobe infarct. Negative blood cultures in a patient with an elevated procalcitonin, renal failure, and negative chest x-ray and x-ray of the foot is noted and currently on Zosyn in a patient with history of antiphospholipid antibody syndrome with a positive anticardiolipin antibody positive, status post right below-knee amputation; end-stage renal disease, on hemodialysis; and the patient had an open reduction and internal fixation of the femur with retrograde approach and right distal femur rodding; this was done on 10/04/2016, postprocedure day #5. Review of orders reveals the patient to be on Zosyn. We will follow closely with you. The patient appears to be improving. Elijah Stuart MD
--- NOTE | 2016-10-11 09:43 | PN ---
The patient is presently in #562, bed#1. She underwent surgery approximately 6 days ago for displaced distal femur fracture above BKA and doing well. She is in the cast to keep the knee extended. We are going to request more physical therapy to get more strength as she is not able to do a straight leg raise yet. I am afraid to take the cast off until she could do straight leg raise to extend the knee, otherwise, she is going to go into flexion contracture, so we will have to keep her in the cast, and there are no signs of infection, but when she starts raising her leg and showing me that she can extend her knee, we will be able to take the cast off which will happen within 4 or 5 days. Eagle Keating DO
--- NOTE | 2016-10-11 12:33 | RAD ---
PROCEDURE: Fluoroscopy greater than 1 hour HISTORY: ORIF RIGHT FEMUR COMPARISON: None TECHNIQUE: Standard protocol for this study/examination. FINDINGS: Submitted images from the current procedure: 4.0 IMPRESSION: Fluoroscopic assistance with submission of 4 images open reduction internal fixation right femur fracture
--- NOTE | 2016-10-11 16:56 | CP.PCM.PN ---
Subjective - Date & Time of Evaluation Date of Evaluation: 10/08/16 Time of Evaluation: 12:00 - Subjective Subjective: Patient is a female presenting for a cardiology follow up. Patient denies any chest pain or shortness of breath. Objective - Vital Signs/Intake and Output Vital Signs (last 24 hours): 10/08/16: Vital Signs: Stable Heart Rate: 50s Normal SInus Rhythm Temp Pulse Resp BP Pulse Ox 99.1 F 73 16 122/65 95 10/10/16 16:30 10/10/16 16:30 10/10/16 16:30 10/10/16 16:30 10/10/16 16:30 - Labs Labs: 10/08/16: Laboratories and imaging are noted. Echocardiogram: Reveals global LV hypokinesis with significant pulmonary hypertension. 10/10/16 08:00 10/10/16 08:00 PT 35.5 Seconds (9.9-11.8) H* 10/10/16 08:00 INR 3.29 (0.93-1.08) H 10/10/16 08:00 APTT 45.3 Seconds (23.7-30.8) H 10/10/16 08:00 - Neck Exam Additional comments: Negative JVD - Respiratory Exam Respiratory Exam: absent: Rales - Cardiovascular Exam Cardiovascular Exam: +S1, +S2 - Extremities Exam Additional comments: No change noted Assessment and Plan (1) Status post CVA Status: Acute (2) ESRD on dialysis Status: Chronic (3) Ischemic dilated cardiomyopathy Status: Acute (4) Pulmonary hypertension Status: Acute (5) Diabetes Status: Chronic (6) CAD (coronary artery disease) Status: Chronic (7) Hypertension Status: Chronic - Assessment and Plan (Free Text) Plan: 1)Given these findings, the patient is currently on the right medications. The patient is for dialysis.
--- NOTE | 2016-10-11 20:25 | CP.PCM.PN ---
Subjective - Date & Time of Evaluation Date of Evaluation: 10/09/16 Time of Evaluation: 10:00 - Subjective Subjective: Patient is sitting up and eating breakfast and denies any shortness of breath or chest pain. Objective - Vital Signs/Intake and Output Vital Signs (last 24 hours): 10/09/16: Blood Pressure: 174/66 Heart Rate: 50s Temp Pulse Resp BP Pulse Ox 99.1 F 73 16 122/65 95 10/10/16 16:30 10/10/16 16:30 10/10/16 16:30 10/10/16 16:30 10/10/16 16:30 - Labs Labs: 10/09/16: Hemoglobin: 10.4 Glucose: 220 BUN: 46 Creatinine: 4.8 10/10/16 08:00 10/10/16 08:00 PT 35.5 Seconds (9.9-11.8) H* 10/10/16 08:00 INR 3.29 (0.93-1.08) H 10/10/16 08:00 APTT 45.3 Seconds (23.7-30.8) H 10/10/16 08:00 - Neck Exam Additional comments: Negative JVD - Respiratory Exam Respiratory Exam: absent: Rales - Cardiovascular Exam Cardiovascular Exam: REGULAR RHYTHM, +S1, +S2 - Extremities Exam Additional comments: No change Assessment and Plan (1) Hypertension Status: Chronic (2) Status post-operative repair of hip fracture Status: Acute (3) Status post fall Status: Acute (4) ESRD on dialysis Status: Chronic (5) Hx of CABG Status: Acute (6) Diabetes Status: Chronic (7) PVD (peripheral vascular disease) Status: Chronic (8) Hx of right BKA Status: Chronic - Assessment and Plan (Free Text) Plan: Given these findings, her neck MRA shows a 60% stenosis of carotid arteries. Her cardiac status is stable at this time. Will D/C telemetry today.
--- NOTE | 2016-10-12 20:18 | OP ---
PREOPERATIVE DIAGNOSES: A 66-year-old female with a displaced supracondylar fracture of right distal femur above a below-knee amputation with osteopenia. POSTOPERATIVE DIAGNOSES: A 66-year-old female with a displaced supracondylar fracture of right distal femur above a below-knee amputation with osteopenia. PROCEDURE: Open reduction and internal fixation with an intramedullary walter retrograde with a right femur on the date of 10/04/2016 from [employer]. SURGEON: Dr. Eagle Keating. ANESTHESIA: General anesthesia with endotracheal tube. DESCRIPTION OF PROCEDURE: The right lower extremity was prepped and draped in sterile fashion on a translucent operative table, so we could see from the hip to the knee. We made an incision distally over the patellar tendon about 2 cm and dissected down to the intercondylar notch, and inserted the first instrument which was a threaded-tip guidewire. When it was in the correct position on both AP and lateral projection, we over-reamed the distal fracture fragment with a 12-mm reamer and then because the bone was so osteopenic after the reduction, we were able to put in a retrograde femoral nail from the [employer], and we locked it distally with 2 screws and proximally with 2 screws once the fracture was impacted. The locking screws were put in each one with a stab wound incision 2 distally and one proximally, and an x-ray showed good position of the fracture and the hardware. The wounds were irrigated with normal saline and closed in layers starting with 0 Vicryl for deep layer, 2-0 Vicryl for subcutaneous tissue, and 2-0 nylon for the skin. The patient was taken to recovery room in good condition. Eagle Keating DO
--- NOTE | 2016-10-16 12:02 | CP.PCM.PN ---
Subjective - Date & Time of Evaluation Date of Evaluation: 10/10/16 Time of Evaluation: 08:00 - Subjective Subjective: The patient is asymptomatic. She is status post and tolerated the surgery, a repair of her fracture, well. Objective - Vital Signs/Intake and Output Vital Signs (last 24 hours): Temp Pulse Resp BP Pulse Ox 99.1 F 73 16 122/65 95 10/10/16 16:30 10/10/16 16:30 10/10/16 16:30 10/10/16 16:30 10/10/16 16:30 : BP: 167/55. HR: In the 60's. - Labs Labs: 10/10/16 08:00 10/10/16 08:00 PT 35.5 Seconds (9.9-11.8) H* 10/10/16 08:00 INR 3.29 (0.93-1.08) H 10/10/16 08:00 APTT 45.3 Seconds (23.7-30.8) H 10/10/16 08:00 Hemoglobin: 8.8 Glucose: 97 - Neck Exam Additional comments: Negative JVD - Respiratory Exam Respiratory Exam: absent: Rales - Cardiovascular Exam Cardiovascular Exam: +S1, +S2 - Extremities Exam Additional comments: Status post amputation on RLE Assessment and Plan (1) Status post CVA Status: Acute (2) ESRD on dialysis Status: Chronic (3) Ischemic dilated cardiomyopathy Status: Acute (4) Pulmonary hypertension Status: Acute (5) Diabetes Status: Chronic (6) CAD (coronary artery disease) Status: Chronic (7) Hypertension Status: Chronic - Assessment and Plan (Free Text) Assessment: 1.Successful repair of her fracture 2.Stable Angina 3.Hx of coronary bypass surgery 4.Severe peripheral vascular disease 5.End-stage renal disease Plan: Given these findings, the patient is hemodynamically stable. Will D/C telemetry today.
--- NOTE | 2016-10-24 09:38 | OP ---
Surgeons: Eagle Keating DO Assisting Surgeon: General [employer] Pump Installer Emory Fernando Preoperative Diagnosis: Displaced, convoluted, fractured distal right femur in the supercondral region on hemodialysis Postoperative Diagnosis: same Indications: Procedure name and detailed description: percutaneous intramedullary nailing retrograde of the right femur with a 340 mm long walter x 10 mm wide lock, statically with one screw proximally, two screws distally. After general anesthesia under tracheal tube, we identified the fracture. We were able to reduce (), and make an incision over the patella 2 cm long entering into the intrafemoral notch in line with the landmarks on the lateral and AP views. Put a () wire into the fracture and then () the distal part for 12 mm to allow us to put in the 10 mm wide walter x 340 mm long after we measured it. Then once the walter was easily passed, we locked it distally with two lockings () and two stab wounds in the third screw proximally to lock the walter free hand. Prior to locking the walter proximally, we impacted the fracture to gain ()(...). 2-0 nylon suture. Pt placed in protective dressing and a splint to the knee to keep it from flexing. She does have a prosthesis that she will be wearing soon when the wound heals. Pt returned to her room in good condition. Eagle Keating DO LISSY
== END 2016-10-10 18:11 | DRG 480 ==
LOC: ED 17:03 → ERH 20:56 → 2RSO 22:52 → 5RNO 10-09 23:30
PROVIDERS: ADMIT Internal Medicine; ATTEND Internal Medicine
PROC: 5A1D60Z (ICD-10-PCS; 2016-10-01)
PROC: 30233K1 Transfusion of Nonautologous Frozen Plasma into Peripheral Vein, Percutaneous Approach (ICD-10-PCS; 2016-10-04)
PROC: 0QSB06Z Reposition Right Lower Femur with Intramedullary Internal Fixation Device, Open Approach (ICD-10-PCS; principal; 2016-10-04 07:30)
PROC: 30233N1 Transfusion of Nonautologous Red Blood Cells into Peripheral Vein, Percutaneous Approach (ICD-10-PCS; 2016-10-07)
DX: S72.451A Displaced supracondylar fracture without intracondylar extension of lower end of right femur, initial encounter for closed fracture (principal); I63.9 Cerebral infarction, unspecified; I13.2 Hypertensive heart and chronic kidney disease with heart failure and with stage 5 chronic kidney disease, or end stage renal disease; N18.6 End stage renal disease; D68.61 Antiphospholipid syndrome; I42.0 Dilated cardiomyopathy; E11.22 Type 2 diabetes mellitus with diabetic chronic kidney disease; N25.81 Secondary hyperparathyroidism of renal origin; I50.42 Chronic combined systolic (congestive) and diastolic (congestive) heart failure; L03.116 Cellulitis of left lower limb; L97.429 Non-pressure chronic ulcer of left heel and midfoot with unspecified severity; E11.622 Type 2 diabetes mellitus with other skin ulcer; E11.51 Type 2 diabetes mellitus with diabetic peripheral angiopathy without gangrene; I65.23 Occlusion and stenosis of bilateral carotid arteries; G20 Parkinson's disease; F32.9 Major depressive disorder, single episode, unspecified; I25.10 Atherosclerotic heart disease of native coronary artery without angina pectoris; K21.9 Gastro-esophageal reflux disease without esophagitis; G40.909 Epilepsy, unspecified, not intractable, without status epilepticus; F41.9 Anxiety disorder, unspecified; E78.00 Pure hypercholesterolemia, unspecified; I07.1 Rheumatic tricuspid insufficiency; I27.2 Other secondary pulmonary hypertension; D50.0 Iron deficiency anemia secondary to blood loss (chronic); I25.118 Atherosclerotic heart disease of native coronary artery with other forms of angina pectoris; I25.5 Ischemic cardiomyopathy; E78.5 Hyperlipidemia, unspecified; B96.5 Pseudomonas (aeruginosa) (mallei) (pseudomallei) as the cause of diseases classified elsewhere; B95.2 Enterococcus as the cause of diseases classified elsewhere; B96.20 Unspecified Escherichia coli [E. coli] as the cause of diseases classified elsewhere; W05.0XXA Fall from non-moving wheelchair, initial encounter; Z87.891 Personal history of nicotine dependence; Z79.4 Long term (current) use of insulin; Z99.2 Dependence on renal dialysis; Z95.1 Presence of aortocoronary bypass graft; Z79.82 Long term (current) use of aspirin; Z89.511 Acquired absence of right leg below knee; Y92.009 Unspecified place in unspecified non-institutional (private) residence as the place of occurrence of the external cause; Z86.718 Personal history of other venous thrombosis and embolism; Z95.5 Presence of coronary angioplasty implant and graft; Z89.412 Acquired absence of left great toe; Z79.01 Long term (current) use of anticoagulants

== ENCOUNTER 2016-11-02 15:40 | Inpatient (IN) | payer MEDICARE, BC ==
[2016-11-02 15:57] VITALS: BMI 25.7
--- NOTE | 2016-11-02 16:32 | ED PDOC ---
Arrival/HPI - General Chief Complaint: Headache Time Seen by Provider: 11/02/16 15:51 - History of Present Illness Narrative History of Present Illness (Text): 11/02/16 16:28 66yo female, hx of ESRD, presents after HD with LUNA. Pt states this LUNA was not sudden onset and not the worst LUNA of her life. Denies n/v. Denies cp/sob/adkins. No other complaints. Past Medical History - Provider Review Nursing Documentation Reviewed: Yes - Infectious Disease Hx of Infectious Diseases: None - Tetanus Immunization Tetanus Immunization: Unknown - Reproductive Menopause: Yes - Cardiac Hx Cardiac Disorders: Yes (CAD ,DVT) Hx Hypertension: Yes - Pulmonary Hx Respiratory Disorders: Yes - Neurological Hx Neurological Disorder: Yes Hx Dizziness: Yes (syncope) - HEENT Hx HEENT Disorder: Yes Other/Comment: wear glasses,L ear [place] - Renal Hx Renal Disorder: Yes Hx Dialysis: Yes ([facility] T,TH,SAT) Date of Last Dialysis Treatment: 10/01/16 Hx Renal Failure: Yes - Endocrine/Metabolic Hx Endocrine Disorders: Yes Hx Diabetes Mellitus Type 2: Yes - Hematological/Oncological Hx Blood Disorders: Yes - Integumentary Hx Dermatological Disorder: Yes Other/Comment: L great toe amputated,RT BKA - Musculoskeletal/Rheumatological Hx Musculoskeletal Disorders: Yes Hx Falls: No Other/Comment: RT BKA - Gastrointestinal Hx Gastrointestinal Disorders: Yes Hx Diverticulitis: Yes Hx Gastroesophageal Reflux: Yes Other/Comment: hx of c-diff - Genitourinary/Gynecological Hx Genitourinary Disorders: No - Psychiatric Hx Psychophysiologic Disorder: Yes Hx Anxiety: Yes Hx Depression: Yes Hx Substance Use: No - Surgical History Hx Amputation: Yes (L Great toe.RT BKA) Hx Coronary Artery Bypass Graft: Yes Hx Open Heart Surgery: Yes - Anesthesia Hx Anesthesia: Yes Hx Anesthesia Reactions: No Hx Malignant Hyperthermia: No - Suicidal Assessment Feels Threatened In Home Enviroment: No Family/Social History Family/Social History: Unknown Family HX Smoking Status: Former Smoker Hx Alcohol Use: No Hx Substance Use: No Hx Substance Use Treatment: No Allergies/Home Meds Allergies/Adverse Reactions: Allergies ciprofloxacin Allergy (Verified 11/02/16 15:53) SWELLING hallucination clarithromycin [From Biaxin] Allergy (Verified 11/02/16 15:53) SWELLING pepper Allergy (Verified 11/02/16 15:53) SWELLING Home Medications: Home Meds Medication Instructions Recorded Confirmed Aspirin [Aspirin EC] 81 mg PO DAILY 05/10/15 10/01/16 Clonidine HCl [Catapres] 0.3 mg PO BID 07/20/16 10/01/16 Primidone [Mysoline] 50 mg PO DAILY 07/20/16 10/01/16 Amiodarone HCl [Pacerone] 200 mg PO DAILY 08/08/16 10/01/16 Gabapentin [Neurontin] 100 mg PO BID 08/08/16 10/01/16 Sertraline [Zoloft] 25 mg PO HS 08/08/16 10/01/16 Sevelamer [Renagel] 800 mg PO TID 08/08/16 10/01/16 Zinc [Zinc Sulfate 220 mg Cap] 220 mg PO DAILY 08/08/16 10/01/16 Omeprazole 20 mg PO DAILY 08/29/16 10/01/16 Albuterol/Ipratropium [Duoneb 3 3 ml IH Q6H 10/01/16 10/01/16 mg/0.5 mg (3 ml) UD] Alprazolam [Xanax] 0.5 mg PO TID 10/01/16 10/01/16 Carvedilol [Coreg] 6.25 mg PO Q12 10/01/16 10/01/16 oxyCODONE [oxyCODONE Immediate 1 tab PO QID 10/01/16 10/01/16 Release Tab] Physical Exam - Physical Exam Narrative Physical Exam (Text): 11/02/16 16:30 - Review of Systems Constitutional: Normal. absent: Fatigue, Weight Change, Fevers Eyes: Normal ENT: denies sore throat, denies tristhmus Respiratory: Normal. absent: SOB, Cough, Sputum Cardiovascular: absent: Chest Pain, Palpitations, Syncope Gastrointestinal: Normal. absent: Abdominal Pain, Diarrhea, Nausea, Vomiting Genitourinary: Normal. absent: Dysuria, Frequency, Hematuria, vaginal bleeding Musculoskeletal: Normal. absent: Arthralgias, Back Pain, Neck Pain Skin: no rashes, no erythema Neurological: Headache absent: Focal Weakness Endocrine: Normal Hemo/Lymphatic: Normal Psychiatric: No suicidal or homicidal ideations Physical exam Patient appears age appropriate in no distress, speaking full sentences without difficulty - Systems Exam Head: Present: Atraumatic, Normocephalic Pupils: Present: pinpoint Extraocular Muscles: Present: EOMI Conjunctiva: Present: Normal Mouth: Present: Moist Mucous Membranes Neck: Present: Normal Range of Motion. No: MIDLINE TENDERNESS, Paraspinal Tenderness Respiratory/Chest: Present: Clear to Auscultation, Good Air Exchange. No: Respiratory Distress, Accessory Muscle Use, Tachypneic Cardiovascular: Present: Regular Rate and Rhythm, Normal S1, S2, Peripheal Pulses Present. No: Murmurs Abdomen: Present: Normal Bowel Sounds. No: Tenderness, Distention, Peritoneal Signs, Rebound, Guarding Back: Present: Normal Inspection. No: Midline Tenderness, Paraspinal Tenderness Upper Extremity: Present: Normal Inspection. No: Cyanosis, Edema Lower Extremity: Present: BKA Neurological: Present: GCS=15, Speech Normal, cranial nerves II through XII fully intact with no cerebellar abnormality, neurosensory fully intact. No focal neurological deficits. Skin: Present: Warm, Dry, Normal Color. No: Rashes Lymphatic: Present: OX3, NI, NC Psychiatric: Present: Alert, not agitated Vital Signs Reviewed: Yes Vital Signs Temp Pulse Resp BP Pulse Ox 11/02/16 17:08 63 18 181/73 H 97 11/02/16 16:42 82 189/71 H 11/02/16 16:41 73 189/71 H 11/02/16 15:54 99.4 F 61 17 208/72 H 96 11/02/16 15:50 99.4 F 62 15 208/72 H 97 Temperature: Afebrile Blood Pressure: Hypertensive Pulse: Regular Respiratory Rate: Normal Appearance: Positive for: Well-Appearing Pain Distress: None Mental Status: No: Confused, Agitated Medical Decision Making ED Course and Treatment: 11/02/16 16:32 66yo female with LUNA, came from HD. Pt states LUNA <6hrs of onset No focal neurological deficits on examination CT head, pain meds, antiHTN meds ordered 11/02/16 17:48 pt's BP lower, in the 180's, LUNA still present pain meds ordered daughter bedside, states that her mother decub becoming worst on exam, it is foul smelling with purulent drainage abx ordered pt and family agree with admission Dr. Palacios aware of admission, in the ED. States will call Dr. Morton as well 11/02/16 17:59 Dr. Morton aware, accepts the admission 11/02/16 18:10 Dr. Palacios aware to f/u CT results - Lab Interpretations Lab Results: 11/02/16 16:39 11/02/16 16:39 Lab Results 11/02/16 16:39: PT 28.0 H, INR 2.59 H, APTT 48.3 H 11/02/16 16:39: Sodium 137, Potassium 3.7, Chloride 96 L, Carbon Dioxide 26, Anion Gap 19, BUN 12, Creatinine 2.8 H, Est GFR ( Amer) 20, Est GFR (Non- Af Amer) 17, Random Glucose 132 H, Calcium 10.7 H, Total Bilirubin 0.7, AST 28, ALT 14, Alkaline Phosphatase 185 H, Total Protein 8.1, Albumin 3.8, Globulin 4.3 , Albumin/Globulin Ratio 0.9 L 11/02/16 16:39: WBC 10.1, RBC 4.29, Hgb 11.2 L, Hct 36.1, MCV 84.1, MCH 26.1, MCHC 31.0, RDW 17.0 H, Plt Count 322, MPV 9.9, Gran % 84.7 H, Lymph % (Auto) 7.8 L, [place] % (Auto) 5.8, Eos % (Auto) 1.5, Baso % (Auto) 0.2, Gran # 8.58 H, Lymph # 0.8 L, [place] # 0.6, Eos # 0.2, Baso # 0.02 - RAD Interpretation Radiology Orders: 11/02/16 16:03 HEAD W/O CONTRAST [CT] Stat - Medication Orders Current Medication Orders: Vancomycin HCl (Vancomycin 1gm) 1 gm in 250 mls @ 133.333 mls/hr IVPB STAT STA PRN Reason: Protocol Stop: 11/02/16 19:39 Discontinued Medications Amlodipine Besylate (Norvasc) 5 mg PO STAT STA Stop: 11/02/16 16:04 Last Admin: 11/02/16 16:41 Dose: 5 mg Clonidine HCl (Catapres) 0.2 mg PO STAT STA Stop: 11/02/16 16:04 Last Admin: 11/02/16 16:42 Dose: 0.2 mg Morphine Sulfate (Morphine) 6 mg IVP STAT STA Stop: 11/02/16 16:06 Last Admin: 11/02/16 16:42 Dose: 6 mg Morphine Sulfate (Morphine) 6 mg IVP STAT STA Stop: 11/02/16 17:48 Disposition/Present on Arrival - Present on Arrival Any Indicators Present on Arrival: No History of DVT/PE: No History of Uncontrolled Diabetes: No Urinary Catheter: No History of Decub. Ulcer: No History Surgical Site Infection Following: None - Disposition Have Diagnosis and Disposition been Completed?: Yes Diagnosis: Decubitus skin ulcer Disposition: HOSPITALIZED Disposition Time: 17:55 Patient Plan: Admission Patient Problems: Current Active Problems Problem Status Onset Decubitus skin ulcer Acute Condition: FAIR
[2016-11-02 16:47] LABS: BASO # 0.02 K/mm3 (0.0-2.0); BASO % 0.2 % (0.0-3.0); EOS # 0.2 (0.0-0.7); EOS % 1.5 % (1.5-5.0); GRAN # 8.58 (1.4-6.5); GRAN % 84.7 % (50.0-68.0); HEMOGLOBIN 11.2 gm/dL (12.0-16.0); LYMPH # 0.8 (1.2-3.4); LYMPH % 7.8 % (22.0-35.0); MEAN CELL VOLUME 84.1 fL (80.0-105.0); MEAN CORPUSCULAR HEMOGLOBIN 26.1 pg (25.0-35.0); MEAN PLATELET VOLUME 9.9 fl (7.0-11.0); MONO # 0.6 (0.1-0.6); MONO % 5.8 % (1.0-6.0); PLATELET COUNT 322 10^3/uL (120.0-450.0); RBC 4.29 10^6/uL (3.5-6.1); WHITE BLOOD COUNT 10.1 10^3/ul (4.5-11.0)
[2016-11-02 16:55] LABS: ALB/GLOB RATIO 0.9 (1.1-1.8); ALBUMIN 3.8 g/dL (3.0-4.8); CALCIUM 10.7 mg/dL (8.4-10.5)
[2016-11-02 17:06] LABS: INR 2.59 (0.93-1.08); PARTIAL THROMBOPLASTIN TIME 48.3 Seconds (23.7-30.8)
[2016-11-02] MEDS ORDERED: Vancomycin 1gm in NS 250ml 1 GM/250 ML BAG IVPB STA (17:47)
[2016-11-02] MEDS ORDERED: Morphine 2 mg/ml ISec IVP PRN (18:35)
--- NOTE | 2016-11-02 18:46 | CP.PCM.HP ---
History of Present Illness - History of Present Illness History of Present Illness: This is a 66Y F with PMH ESRD on HD, CAD s/p CABG, seizures, depression, GERD, CHF, IDDM, Parkinsons, DVTs and CVA secondary to antiphospholipid syndrome who came to the ED for low back pain. Patient was at dialysis today and was having pain in her sacral region as well as a headache. It is constant and does not radiate. She has a sacral decubitus ulcer in the region which is unstageable. She reports having increased foul smelling purulent drainage from the region. She was recently d/c from [facility] on 10/10/16 and was transferred to [facility]. The patient denies fever, chills, CP, SOB, n/v/d, numbness/tingling. It is noted that in the ED, pt had a SBP in the 230s. She was given her extensive home regimen of antihypertensives and the SBP decreased to the 180s. Headache as resolved. PMH: ESRD on HD (T,, ), CAD s/p CABG, CVA, seizures, depression, GERD, CHF, IDDM, Parkinsons, DVTs, antiphospholipid syndrome PSH: CABG, R BKA Meds: Please refer to MAR All: Lucero Dwyer Pepper SH: Denies EtOH or drug use. Former smoker FH: Non-contributory Present on Admission - Present on Admission Any Indicators Present on Admission: Yes History of DVT/PE: Yes History of Uncontrolled Diabetes: Yes Decubitus Ulcer Present: Yes Decubitus Ulcer Stage: Unstageable Review of Systems - Constitutional Constitutional: absent: Chills, Fever - EENT Eyes: absent: Change in Vision Nose/Mouth/Throat: absent: Dysphagia - Cardiovascular Cardiovascular: absent: Chest Pain, Dyspnea, Edema, Syncope - Respiratory Respiratory: absent: Cough, Dyspnea, Hemoptysis - Gastrointestinal Gastrointestinal: absent: Change in Bowel Habits, Diarrhea, Nausea, Vomiting - Genitourinary Genitourinary: absent: Dysuria, Hematuria - Musculoskeletal Musculoskeletal: Back Pain. absent: Numbness, Tingling - Integumentary Integumentary: Non-Healing Lesions, Wounds. absent: Pruritus, Rash - Neurological Neurological: absent: Dizziness, Tingling, Tremor, Vertigo, Weakness - Psychiatric Psychiatric: absent: Anxiety, Depression Past Patient History - Infectious Disease Hx of Infectious Diseases: None - Tetanus Immunizations Tetanus Immunization: Unknown - Past Medical History & Family History Past Medical History?: Yes - Past Social History Smoking Status: Former Smoker - CARDIAC Hx Cardiac Disorders: Yes (CAD ,DVT) Hx Hypertension: Yes - PULMONARY Hx Respiratory Disorders: Yes - NEUROLOGICAL Hx Neurological Disorder: Yes Hx Dizziness: Yes (syncope) - HEENT Hx HEENT Problems: Yes Other/Comment: wear glasses,L ear [place] - RENAL Hx Chronic Kidney Disease: Yes Hx Dialysis: Yes ([facility] T,TH,SAT) Date of Last Dialysis Treatment: 10/01/16 Hx Renal Failure: Yes - ENDOCRINE/METABOLIC Hx Endocrine Disorders: Yes Hx Diabetes Mellitus Type 2: Yes - HEMATOLOGICAL/ONCOLOGICAL Hx Blood Disorders: Yes - INTEGUMENTARY Hx Dermatological Problems: Yes Other/Comment: L great toe amputated,RT BKA - MUSCULOSKELETAL/RHEUMATOLOGICAL Hx Musculoskeletal Disorders: Yes Hx Falls: No Other/Comment: RT BKA - GASTROINTESTINAL Hx Gastrointestinal Disorders: Yes Hx Diverticulitis: Yes Hx Gastroesophageal Reflux: Yes Other/Comment: hx of c-diff - GENITOURINARY/GYNECOLOGICAL Hx Genitourinary Disorders: No - PSYCHIATRIC Hx Psychophysiologic Disorder: Yes Hx Anxiety: Yes Hx Depression: Yes Hx Substance Use: No - SURGICAL HISTORY Hx Amputation: Yes (L Great toe.RT BKA) Hx Coronary Artery Bypass Graft: Yes Hx Open Heart Surgery: Yes - ANESTHESIA Hx Anesthesia: Yes Hx Anesthesia Reactions: No Hx Malignant Hyperthermia: No Meds Allergies/Adverse Reactions: Allergies Allergy/AdvReac Type Severity Reaction Status Date / Time ciprofloxacin Allergy SWELLING Verified 11/02/16 15:53 clarithromycin [From Biaxin] Allergy SWELLING Verified 11/02/16 15:53 pepper Allergy SWELLING Verified 11/02/16 15:53 Physical Exam - Constitutional Appears: No Acute Distress - Head Exam Head Exam: ATRAUMATIC, NORMAL INSPECTION, NORMOCEPHALIC - Eye Exam Eye Exam: Normal appearance Pupil Exam: NORMAL ACCOMODATION - ENT Exam ENT Exam: Mucous Membranes Moist - Neck Exam Neck exam: Positive for: Normal Inspection - Respiratory Exam Respiratory Exam: Clear to Auscultation Bilateral, NORMAL BREATHING PATTERN. absent: Rales, Rhonchi, Wheezes - Cardiovascular Exam Cardiovascular Exam: REGULAR RHYTHM, +S1, +S2. absent: Diastolic murmur, Gallop , Rubs - GI/Abdominal Exam GI & Abdominal Exam: Normal Bowel Sounds, Soft. absent: Distended, Rebound, Rigid, Tenderness - Extremities Exam Additional comments: R BKA with wound with purulent drainage. - Back Exam Additional comments: Sacral decubitus ulcer- unstageable - Neurological Exam Neurological exam: Alert, CN II-XII Intact, Oriented x3 - Psychiatric Exam Psychiatric exam: Normal Affect, Normal Mood - Skin Skin Exam: Dry, Warm Results - Vital Signs Recent Vital Signs: Last Vital Signs Temp 99.4 F 11/02/16 15:54 Pulse 61 11/02/16 18:31 Resp 16 11/02/16 18:31 BP 195/65 H 11/02/16 18:31 Pulse Ox 98 11/02/16 18:31 - Labs Result Diagrams: 11/02/16 16:39 11/02/16 16:39 Assessment & Plan - Assessment and Plan (Free Text) Assessment: This is a 66Y F with PMH ESRD on HD (,, ), CAD s/p CABG, seizures, depression, GERD, CHF, IDDM, Parkinsons, DVTs, antiphospholipid syndrome, and CVA admitted for sacral decubitis ulcer Plan: 1. Hypertensive emergency - SBP 230s on admission, now in 180s with headache - Head CT showed no acute findings - Continue home medications: Amiodarone, Norvasc, Lisinopril, Hydralazine, Coreg , Clonidine - Hydralazine PRN SBP >170 2. Sacral decubitus ulcer- unstagable - Multiple wounds on LE - afebrile, no leukocytosis - Surgery consulted for debridement - Podiatry consulted for LE wounds - continue wound care - on Zyvox and Vanco - Wound cultures pending - Zinc, Multivitamin, Vitamin C - ID consulted - Morphine prn pain, Oxycodone (home med) schedule 3. ESRD on HD - HD today - will continue HD schedule - Continue Renagel 4. IDDM - ISS - BGM ACHS - carb consistent diet 5. CAD s/p CABG - Continue lipitor, ASA 6. Antiphospholipid syndrome - Continue Coumadin - Monitor INR 7. Hx of Depression and anxiety - Xanax and Lexapro 8. Hx of Parkinsons - Primodone and Sinemet GI ppx: Protonix DVT ppx: Coumadin Case seen, discussed and reviewed with attending Emmanuel Palacios PGY2 - Date & Time Date: 11/02/16 Time: 18:49
--- NOTE | 2016-11-02 20:45 | CP.PCM.CON ---
History of Present Illness - History of Present Illness History of Present Illness: General Surgery- Dr. Christianson Consult for sacral decub ulcer 66Y F PMHx CVA, ESRD on HD, CAD s/p CABG, seizures, depression, GERD, CHF, IDDM , early onset Parkinsons, DVTs and CVA secondary to antiphospholipid syndrome who came to the ED for low back pain. Patient was at dialysis today and was having pain in her sacral region as well as a headache. It is constant and does not radiate. She has a sacral decubitus ulcer in the region which is unstageable. Sacral wound was first noted in July the size of a dime. Santyl was used which helped and last use was August. Since then wound had worsened. There is also a stage 3 ulcer on the Right anterior patella measuring 4x5cm, and an unstagable left heel measuring 2x2. She reports having increased foul smelling purulent drainage from the region. [place] [facility] and was transferred to [facility]. The patient denies fever, chills, CP, SOB, n/v/ d, numbness/tingling. PMH: ESRD on HD (,, ), CAD s/p CABG, CVA, seizures, depression, GERD, CHF, IDDM, Parkinsons, DVTs, antiphospholipid syndrome, CVA in September PSH: CABG, R BKA, ORIF of right knee All: Luc[employer] Dweyr Pepper SH: Denies EtOH or drug use. Former smoker Review of Systems - Review of Systems All systems: reviewed and no additional remarkable complaints except Past Patient History - Infectious Disease Hx of Infectious Diseases: None - Tetanus Immunizations Tetanus Immunization: Unknown - Past Medical History & Family History Past Medical History?: Yes - Past Social History Smoking Status: Former Smoker - CARDIAC Hx Cardiac Disorders: Yes (CAD ,DVT) Hx Hypertension: Yes - PULMONARY Hx Respiratory Disorders: Yes - NEUROLOGICAL Hx Neurological Disorder: Yes Hx Dizziness: Yes (syncope) - HEENT Hx HEENT Problems: Yes Other/Comment: wear glasses,L ear [place] - RENAL Hx Chronic Kidney Disease: Yes Hx [place]: Yes [place] [place] Date of Last Dialysis Treatment: 10/01/16 Hx Renal Failure: Yes - ENDOCRINE/METABOLIC Hx Endocrine Disorders: Yes Hx Diabetes Mellitus Type 2: Yes - HEMATOLOGICAL/ONCOLOGICAL Hx Blood Disorders: Yes - INTEGUMENTARY Hx Dermatological Problems: Yes Other/Comment: L great toe amputated,RT BKA - MUSCULOSKELETAL/RHEUMATOLOGICAL Hx Musculoskeletal Disorders: Yes Hx Falls: No Other/Comment: RT BKA - GASTROINTESTINAL Hx Gastrointestinal Disorders: Yes Hx Diverticulitis: Yes Hx Gastroesophageal Reflux: Yes Other/Comment: hx of c-diff - GENITOURINARY/GYNECOLOGICAL Hx Genitourinary Disorders: No - PSYCHIATRIC Hx Psychophysiologic Disorder: Yes Hx Anxiety: Yes Hx Depression: Yes Hx Substance Use: No - SURGICAL HISTORY Hx Amputation: Yes (L Great toe.RT BKA) Hx Coronary Artery Bypass Graft: Yes Hx Open Heart Surgery: Yes - ANESTHESIA Hx Anesthesia: Yes Hx Anesthesia Reactions: No Hx Malignant Hyperthermia: No Meds Allergies/Adverse Reactions: Allergies Allergy/AdvReac Type Severity Reaction Status Date / Time ciprofloxacin Allergy SWELLING Verified 11/02/16 15:53 clarithromycin [From Biaxin] Allergy SWELLING Verified 11/02/16 15:53 pepper Allergy SWELLING Verified 11/02/16 15:53 - Medications Medications: Current Medications Acetaminophen (Tylenol 325mg Tab) 650 mg PO Q6H PRN PRN Reason: Fever >100.4 F Albuterol/Ipratropium (Duoneb 3 Mg/0.5 Mg (3 Ml) Ud) 3 ml IH [id number] [facility] Alprazolam (Xanax) 0.5 mg PO TID [facility] Amiodarone HCl (Cordarone) 200 mg PO DAILY [facility] Amlodipine Besylate (Norvasc) 10 mg PO DAILY [facility] Ascorbic Acid (Vitamin C 500 Mg Tab) 500 mg PO DAILY [facility] Aspirin (Ecotrin) 81 mg PO DAILY [facility] Atorvastatin Calcium (Lipitor) 80 mg PO DIN [facility] Carbidopa/Levodopa (Sinemet 10/100) 1 tab PO TID [facility] Carvedilol (Coreg) 6.25 mg PO Q12 [facility] Clonidine HCl (Catapres) 0.3 mg PO BID [facility] Escitalopram Oxalate (Lexapro) 10 mg PO DAILY [facility] Gabapentin (Neurontin) 100 mg PO BID [facility] PRN Reason: Protocol Hydralazine HCl (Apresoline) 100 mg PO Q8H [facility] Last Admin: 11/02/16 20:21 Dose: 100 mg Hydralazine HCl (Apresoline) 10 mg IVP Q6 PRN PRN Reason: Systolic Blood Pressure Linezolid (Zyvox 600mg/300ml D5w) 600 mg in 300 mls @ 200 mls/hr IVPB Q12 [facility] PRN Reason: Protocol Stop: 11/02/16 23:29 Insulin Human Regular (Humulin R High) 0 units SC ACHS [facility] PRN Reason: Protocol Lisinopril (Zestril) 80 mg PO DAILY [facility] Morphine Sulfate (Morphine) 2 mg IVP Q4H PRN PRN Reason: Pain, severe (8-10) Multivitamins (Thera Tab) 1 tab PO 0800 [facility] Oxycodone HCl (Oxycodone Immediate Release Tab) 15 mg PO QID [facility] Pantoprazole Sodium (Protonix Ec Tab) 40 mg PO ACB [facility] Primidone (Mysoline) 50 mg PO DAILY [facility] Sertraline HCl (Zoloft) 25 mg PO HS [facility] Sevelamer HCl (Renagel) 800 mg PO TID [facility] Warfarin Sodium (Coumadin) 4 mg PO 1800 [facility] Zinc Sulfate (Zinc Sulfate 220 Mg Cap) 220 mg PO DAILY [facility] Physical Exam - Constitutional Appears: No Acute Distress, Older Than Stated Age, Chronically Ill - ENT Exam ENT Exam: Mucous Membranes Moist - Respiratory Exam Respiratory Exam: NORMAL BREATHING PATTERN. absent: Accessory Muscle Use, Rhonchi, Wheezes - Cardiovascular Exam Cardiovascular Exam: RRR, +S1 - GI/Abdominal Exam GI & Abdominal Exam: Normal Bowel Sounds, Soft. absent: Distended, Firm - Neurological Exam Neurological exam: Altered Additional comments: AAOx2 - Psychiatric Exam Psychiatric exam: Flat Affect - Skin Additional comments: Sacral Decub ulcer- Unstagable 7x8cm Right Patella- Stage 3 4x5 Left calcaneous- unstagable 3x3 Results - Vital Signs Recent Vital Signs: Last Vital Signs Temp 99.4 F 11/02/16 15:54 Pulse 60 11/02/16 20:21 Resp 16 11/02/16 18:45 BP 174/62 H 11/02/16 20:21 Pulse Ox 98 11/02/16 18:45 - Labs Result Diagrams: 11/02/16 16:39 11/02/16 16:39 Assessment & Plan - Assessment and Plan (Free Text) Assessment: 66F Sacral decub ulcer Plan: - c/w Medical management - santyl on sacral wound - silvadene on right patella will discuss with Dr. Sammy Garcia PGY1
[2016-11-02] MEDS: Insulin Reg-HIGH-Coverage SC SCH (21:36)
[2016-11-02] MEDS: Linezolid 600 mg in D5W 300 ml 600 MG/300 ML BAG IVPB SCH (21:44)
[2016-11-02] MEDS: oxyCODONE 15 mg Immediate Release Tab PO SCH (21:44)
[2016-11-02] MEDS: Albuterol-Ipratrop 3 mg / 0.5 (3 ml) UD IH SCH (21:59)
[2016-11-02] MEDS ORDERED: Pneumococcal 23-Valent Vaccine IM ONE (23:04)
[2016-11-03] MEDS: Albuterol-Ipratrop 3 mg / 0.5 (3 ml) UD IH SCH ×4 (03:10→21:10)
[2016-11-03] MEDS: Piperacillin/Tazobact 3.375 gm 100 ML IVPB SCH ×3 (05:20→22:32)
[2016-11-03 07:51] LABS: INR 2.5 (0.93-1.08)
[2016-11-03 07:56] LABS: BASO # 0.04 K/mm3 (0.0-2.0); BASO % 0.4 % (0.0-3.0); EOS # 0.3 (0.0-0.7); EOS % 2.6 % (1.5-5.0); GRAN % 79.9 % (50.0-68.0); HEMOGLOBIN 9.5 gm/dL (12.0-16.0); LYMPH # 0.9 (1.2-3.4); LYMPH % 7.7 % (22.0-35.0); MEAN CELL VOLUME 85.2 fL (80.0-105.0); MEAN CORPUSCULAR HEMOGLOBIN 25.5 pg (25.0-35.0); MEAN PLATELET VOLUME 10.3 fl (7.0-11.0); MONO # 1.1 (0.1-0.6); MONO % 9.4 % (1.0-6.0); PLATELET COUNT 307 10^3/uL (120.0-450.0); RBC 3.72 10^6/uL (3.5-6.1); RED CELL DISTRIBUTION WIDTH 17.2 % (11.5-14.5); WHITE BLOOD COUNT 11.4 10^3/ul (4.5-11.0)
[2016-11-03 08:01] LABS: ALB/GLOB RATIO 0.8 (1.1-1.8); ALBUMIN 3.2 g/dL (3.0-4.8); CALCIUM 10.4 mg/dL (8.4-10.5)
[2016-11-03] MEDS: Insulin Reg-HIGH-Coverage SC SCH ×4 (08:31→22:09)
[2016-11-03] MEDS: Multivitamin Therapeutic Tab PO SCH (08:32)
[2016-11-03] MEDS: Pantoprazole 40 mg EC Tab PO SCH (08:33)
[2016-11-03] MEDS: oxyCODONE 15 mg Immediate Release Tab PO SCH ×4 (09:16→22:35)
[2016-11-03] MEDS: Linezolid 600 mg in D5W 300 ml 600 MG/300 ML BAG IVPB SCH ×2 (09:19→22:33)
--- NOTE | 2016-11-03 09:40 | CT ---
PROCEDURE: CT HEAD WITHOUT CONTRAST. HISTORY: LUNA COMPARISON: None available. TECHNIQUE: Axial computed tomography images were obtained through the head/brain without intravenous contrast. Radiation dose: Total exam DLP = 774 mGy-cm. This CT exam was performed using one or more of the following dose reduction techniques: Automated exposure control, adjustment of the mA and/or kV according to patient size, and/or use of iterative reconstruction technique. FINDINGS: HEMORRHAGE: No intracranial hemorrhage. BRAIN: No mass effect or edema. There is mild atrophy and mild chronic microvascular change VENTRICLES: Unremarkable. No hydrocephalus. CALVARIUM: Unremarkable. PARANASAL SINUSES: Unremarkable as visualized. No significant inflammatory changes. MASTOID AIR CELLS: Unremarkable as visualized. No inflammatory changes. OTHER FINDINGS: The report concurs with the preliminary [facility] report IMPRESSION: No acute findings
[2016-11-03] MEDS ORDERED: Collagenase 250 Units/gm Ointment(30 gm) TOP SCH (10:00)
[2016-11-03] MEDS ORDERED: Silver Sulfadiazine 1% Cream (20 gm) TOP SCH (10:00)
--- NOTE | 2016-11-03 10:14 | CARD ---
APPROVED REPORT EKG Measurement Heart [id number] <Conclusion> Normal sinus rhythm Left ventricular hypertrophy with repolarization abnormality Prolonged QTc No change
--- NOTE | 2016-11-03 11:33 | CP.PCM.PN ---
Subjective - Date & Time of Evaluation Date of Evaluation: 11/03/16 Time of Evaluation: 11:30 - Subjective Subjective: Medicine Progress Note Patient seen and examined at bedside. There were no acute overnight events. She reports feeling better today, denies headache, CP, SOB, n/v/d, numbness/tingling , fever or chills. Objective - Vital Signs/Intake and Output Vital Signs (last 24 hours): Temp Pulse Resp BP Pulse Ox 99.3 F 59 L 16 168/54 H 98 11/03/16 06:00 11/03/16 10:55 11/03/16 06:00 11/03/16 10:55 11/03/16 06:00 Intake and Output: 11/03/16 11/03/16 06:59 18:59 Intake Total 120 Output Total 0 Balance 120 - Medications Medications: Current Medications Acetaminophen (Tylenol 325mg Tab) 650 mg PO Q6H PRN PRN Reason: Fever >100.4 F Albuterol/Ipratropium (Duoneb 3 Mg/0.5 Mg (3 Ml) Ud) 3 ml IH [id number] [facility] Last Admin: 11/03/16 07:55 Dose: 3 ml Alprazolam (Xanax) 0.5 mg PO TID [facility] Last Admin: 11/03/16 09:16 Dose: 0.5 mg Amiodarone HCl (Cordarone) 200 mg PO DAILY [facility] Last Admin: 11/03/16 09:15 Dose: 200 mg Amlodipine Besylate (Norvasc) 10 mg PO DAILY [facility] Last Admin: 11/03/16 09:16 Dose: 10 mg Ascorbic Acid (Vitamin C 500 Mg Tab) 500 mg PO DAILY [facility] Last Admin: 11/03/16 09:14 Dose: 500 mg Aspirin (Ecotrin) 81 mg PO DAILY [facility] Last Admin: 11/03/16 09:15 Dose: 81 mg Atorvastatin Calcium (Lipitor) 80 mg PO DIN [facility] Carbidopa/Levodopa (Sinemet 10/100) 1 tab PO TID [facility] Last Admin: 11/03/16 09:15 Dose: 1 tab Carvedilol (Coreg) 6.25 mg PO Q12 [facility] Last Admin: 11/03/16 09:15 Dose: 6.25 mg Clonidine HCl (Catapres) 0.3 mg PO TID [facility] Collagenase (Santyl) 0 gm TOP DAILY [facility] Last Admin: 11/03/16 10:56 Dose: 1 unit Escitalopram Oxalate (Lexapro) 10 mg PO DAILY [facility] Last Admin: 11/03/16 09:15 Dose: 10 mg Gabapentin (Neurontin) 100 mg PO BID [facility] PRN Reason: Protocol Last Admin: 11/03/16 09:14 Dose: 100 mg Hydralazine HCl (Apresoline) 100 mg PO Q8H [facility] Last Admin: 11/03/16 10:55 Dose: 100 mg Hydralazine HCl (Apresoline) 10 mg IVP Q6 PRN PRN Reason: Systolic Blood Pressure Last Admin: 11/03/16 06:04 Dose: 10 mg Linezolid (Zyvox 600mg/300ml D5w) 600 mg in 300 mls @ 200 mls/hr IVPB Q12 [facility] PRN Reason: Protocol Stop: 11/09/16 22:01 Last Admin: 11/03/16 09:19 Dose: 200 mls/hr Piperacillin Sod/Tazobactam Sod (Zosyn 3.375 In Ns 100ml) 100 mls @ 200 mls/hr IVPB Q8 [facility] PRN Reason: Protocol Stop: 11/10/16 06:01 Last Admin: 11/03/16 05:20 Dose: 200 mls/hr Insulin Human Regular (Humulin R High) 0 units SC ACHS [facility] PRN Reason: Protocol Last Admin: 11/03/16 08:31 Dose: Not Given Lisinopril (Zestril) 80 mg PO DAILY [facility] Last Admin: 11/03/16 09:16 Dose: 80 mg Morphine Sulfate (Morphine) 2 mg IVP Q4H PRN PRN Reason: Pain, severe (8-10) Multivitamins (Thera Tab) 1 tab PO 0800 [facility] Last Admin: 11/03/16 08:32 Dose: 1 tab Oxycodone HCl (Oxycodone Immediate Release Tab) 15 mg PO QID [facility] Last Admin: 11/03/16 09:16 Dose: 15 mg Pantoprazole Sodium (Protonix Ec Tab) 40 mg PO ACB [facility] Last Admin: 11/03/16 08:33 Dose: 40 mg Primidone (Mysoline) 50 mg PO DAILY [facility] Last Admin: 11/03/16 09:15 Dose: 50 mg Sertraline HCl (Zoloft) 25 mg PO HS [facility] Last Admin: 11/02/16 21:44 Dose: 25 mg Sevelamer HCl (Renagel) 800 mg PO WM [facility] Last Admin: 11/03/16 08:33 Dose: 800 mg Silver Sulfadiazine (Silvadene 1% 20 Gm) 0 ea TOP DAILY [facility] Last Admin: 11/03/16 10:57 Dose: Not Given Warfarin Sodium (Coumadin) 4 mg PO 1800 [facility] Zinc Sulfate (Zinc Sulfate 220 Mg Cap) 220 mg PO DAILY [facility] Last Admin: 11/03/16 09:15 Dose: 220 mg - Labs Labs: 11/03/16 07:00 11/03/16 07:00 PT 27.0 Seconds (9.9-11.8) H 11/03/16 07:00 INR 2.50 (0.93-1.08) H 11/03/16 07:00 APTT 48.3 Seconds (23.7-30.8) H 11/02/16 16:39 - Constitutional Appears: No Acute Distress - Head Exam Head Exam: ATRAUMATIC, NORMAL INSPECTION, NORMOCEPHALIC - Eye Exam Eye Exam: Normal appearance Pupil Exam: NORMAL ACCOMODATION - ENT Exam ENT Exam: Mucous Membranes Moist - Respiratory Exam Respiratory Exam: Clear to Ausculation Bilateral, NORMAL BREATHING PATTERN. absent: Rales, Rhonchi, Wheezes - Cardiovascular Exam Cardiovascular Exam: REGULAR RHYTHM, +S1, +S2. absent: Gallop, Rubs, Murmur - GI/Abdominal Exam GI & Abdominal Exam: Soft, Normal Bowel Sounds. absent: Rigid, Tenderness, Mass , Rebound - Extremities Exam Extremities Exam: absent: Calf Tenderness Additional comments: R BKA venous stasis - Neurological Exam Neurological Exam: Alert, Awake, CN II-XII Intact - Psychiatric Exam Psychiatric exam: Normal Affect, Normal Mood - Skin Skin Exam: Normal Color, Warm. absent: Intact Additional comments: Sacral Decub ulcer- Unstagable 7x8cm Right Patella- Stage 3 4x5 Left calcaneous- unstagable 3x3 Assessment and Plan - Assessment and Plan (Free Text) Assessment: This is a 66Y F with PMH ESRD on HD (T,, ), CAD s/p CABG, seizures, depression, GERD, CHF, IDDM, Parkinsons, DVTs, antiphospholipid syndrome, and CVA admitted for sacral decubitis ulcer as well as hypertensive urgency. Plan: 1. Hypertensive urgency- improved - Head CT showed no acute findings - Continue Amiodarone, Norvasc, Lisinopril, Hydralazine, Coreg, Clonidine - Clonidine increased to TID - Hydralazine PRN SBP >170 2. Sacral decubitus ulcer- unstagable - afebrile, with mild leukocytosis - Surgery consulted for debridement - recs appreciated - Podiatry consulted for LE wounds - Wound care, air mattress, frequent turning - ID consulted- recs appreciated - Continue Zosyn and Zyvox - Wound cultures pending - Zinc, Multivitamin, Vitamin C - Continue Pain control 3. ESRD on HD - will continue HD schedule - Continue Renagel - Nephro Consulted- Dr. Eller who she sees as outpt for HD 4. IDDM - ISS - BGM ACHS 5. CAD s/p CABG - lipitor, ASA 6. Antiphospholipid syndrome - Continue Coumadin - INR therapeutic 7. Hx of Depression and anxiety - Continue Xanax and Lexapro 8. Hx of Parkinsons - Continue Primodone and Sinemet GI ppx: Protonix DVT ppx: Coumadin Dispo: Patient will be transferred back to rehab facility once medically cleared. Case seen, discussed and reviewed with attending Emmanuel Palacios PGY2
--- NOTE | 2016-11-03 11:38 | CP.PCM.PN ---
Subjective - Date & Time of Evaluation Date of Evaluation: 11/03/16 Time of Evaluation: 07:05 - Subjective Subjective: General surgery progress note for Dr. Kristopher Stokes, PGY-1 Pt S & E at bedside. Pt reports lower extremity pain overnight. Denies N/V/F/C, SOB, ab pain, back pain. Is tolerating diet. Objective - Vital Signs/Intake and Output Vital Signs (last 24 hours): Temp Pulse Resp BP Pulse Ox 99.3 F 59 L 16 168/54 H 98 11/03/16 06:00 11/03/16 10:55 11/03/16 06:00 11/03/16 10:55 11/03/16 06:00 Intake and Output: 11/03/16 11/03/16 06:59 18:59 Intake Total 120 Output Total 0 Balance 120 - Medications Medications: Current Medications Acetaminophen (Tylenol 325mg Tab) 650 mg PO Q6H PRN PRN Reason: Fever >100.4 F Albuterol/Ipratropium (Duoneb 3 Mg/0.5 Mg (3 Ml) Ud) 3 ml IH [id number] [facility] Last Admin: 11/03/16 07:55 Dose: 3 ml Alprazolam (Xanax) 0.5 mg PO TID [facility] Last Admin: 11/03/16 09:16 Dose: 0.5 mg Amiodarone HCl (Cordarone) 200 mg PO DAILY [facility] Last Admin: 11/03/16 09:15 Dose: 200 mg Amlodipine Besylate (Norvasc) 10 mg PO DAILY [facility] Last Admin: 11/03/16 09:16 Dose: 10 mg Ascorbic Acid (Vitamin C 500 Mg Tab) 500 mg PO DAILY [facility] Last Admin: 11/03/16 09:14 Dose: 500 mg Aspirin (Ecotrin) 81 mg PO DAILY [facility] Last Admin: 11/03/16 09:15 Dose: 81 mg Atorvastatin Calcium (Lipitor) 80 mg PO DIN [facility] Carbidopa/Levodopa (Sinemet 10/100) 1 tab PO TID [facility] Last Admin: 11/03/16 09:15 Dose: 1 tab Carvedilol (Coreg) 6.25 mg PO Q12 [facility] Last Admin: 11/03/16 09:15 Dose: 6.25 mg Clonidine HCl (Catapres) 0.3 mg PO TID [facility] Collagenase (Santyl) 0 gm TOP DAILY [facility] Escitalopram Oxalate (Lexapro) 10 mg PO DAILY [facility] Last Admin: 11/03/16 09:15 Dose: 10 mg Gabapentin (Neurontin) 100 mg PO BID [facility] PRN Reason: Protocol Last Admin: 11/03/16 09:14 Dose: 100 mg Hydralazine HCl (Apresoline) 100 mg PO Q8H [facility] Last Admin: 11/03/16 10:55 Dose: 100 mg Hydralazine HCl (Apresoline) 10 mg IVP Q6 PRN PRN Reason: Systolic Blood Pressure Last Admin: 11/03/16 06:04 Dose: 10 mg Linezolid (Zyvox 600mg/300ml D5w) 600 mg in 300 mls @ 200 mls/hr IVPB Q12 [facility] PRN Reason: Protocol Stop: 11/09/16 22:01 Last Admin: 11/03/16 09:19 Dose: 200 mls/hr Piperacillin Sod/Tazobactam Sod (Zosyn 3.375 In Ns 100ml) 100 mls @ 200 mls/hr IVPB Q8 [facility] PRN Reason: Protocol Stop: 11/10/16 06:01 Last Admin: 11/03/16 05:20 Dose: 200 mls/hr Insulin Human Regular (Humulin R High) 0 units SC ACHS [facility] PRN Reason: Protocol Last Admin: 11/03/16 08:31 Dose: Not Given Lisinopril (Zestril) 80 mg PO DAILY [facility] Last Admin: 11/03/16 09:16 Dose: 80 mg Morphine Sulfate (Morphine) 2 mg IVP Q4H PRN PRN Reason: Pain, severe (8-10) Multivitamins (Thera Tab) 1 tab PO 0800 [facility] Last Admin: 11/03/16 08:32 Dose: 1 tab Oxycodone HCl (Oxycodone Immediate Release Tab) 15 mg PO QID [facility] Last Admin: 11/03/16 09:16 Dose: 15 mg Pantoprazole Sodium (Protonix Ec Tab) 40 mg PO ACB [facility] Last Admin: 11/03/16 08:33 Dose: 40 mg Primidone (Mysoline) 50 mg PO DAILY [facility] Last Admin: 11/03/16 09:15 Dose: 50 mg Sertraline HCl (Zoloft) 25 mg PO HS [facility] Last Admin: 11/02/16 21:44 Dose: 25 mg Sevelamer HCl (Renagel) 800 mg PO WM [facility] Last Admin: 11/03/16 08:33 Dose: 800 mg Warfarin Sodium (Coumadin) 4 mg PO 1800 [facility] Zinc Sulfate (Zinc Sulfate 220 Mg Cap) 220 mg PO DAILY [facility] Last Admin: 11/03/16 09:15 Dose: 220 mg - Labs Labs: 11/03/16 07:00 11/03/16 07:00 PT 27.0 Seconds (9.9-11.8) H 11/03/16 07:00 INR 2.50 (0.93-1.08) H 11/03/16 07:00 APTT 48.3 Seconds (23.7-30.8) H 11/02/16 16:39 - Constitutional Appears: Non-toxic, No Acute Distress - Head Exam Head Exam: ATRAUMATIC, NORMAL INSPECTION, NORMOCEPHALIC - Eye Exam Eye Exam: EOMI, Normal appearance - ENT Exam ENT Exam: Mucous Membranes Moist, Normal Exam - Neck Exam Neck Exam: Full ROM, Normal Inspection - Respiratory Exam Respiratory Exam: Clear to Ausculation Bilateral, NORMAL BREATHING PATTERN - Cardiovascular Exam Cardiovascular Exam: REGULAR RHYTHM, +S1, +S2 - GI/Abdominal Exam GI & Abdominal Exam: Soft, Normal Bowel Sounds - Extremities Exam Additional comments: R BKA, anterior aspect of knee with ulcerated wound- optifoam in place; Left heel with ulcerated wound- optifoam in place - Neurological Exam Neurological Exam: Alert, Awake. absent: Oriented x3 (AOx 2 (self, place, not time)) - Psychiatric Exam Psychiatric exam: Normal Affect, Normal Mood - Skin Skin Exam: absent: Intact (Sacral area with ulcer, unstagable; Right anterior knee with ulcer; Left heel with ulcer- optifoam covering all ulcers in place) Assessment and Plan - Assessment and Plan (Free Text) Assessment: 66F w/sacral decubitus ulcer, left heel ulcer, and right knee ulcer Plan: wound care Optifoam santyl to sacrum, left heel, and right knee ulcers Air mattress Turn pt Q2H All other mgmt as per primary team DW attending Divya, PGY-1
--- NOTE | 2016-11-03 11:45 | CP.PCM.CON ---
History of Present Illness - History of Present Illness History of Present Illness: 66 year old female with PMH of Sepsis due to left sided healthcare-associated pneumonia, Left heel ulcer with evidence of acute osteomyelitis on bone scan, ESRD on HD, CAD S/P CABG, chronic CHF, DM, history of anti-phospholipid antibody syndrome, S/P right below the knee amputation was brought in to [facility] [place] because of pain in the sacral area. The patient does not have fever or chills, no headache or dizziness, no chest pain, no SOB, no abdominal pain, no diarrhea, no dysuria. Infectious diseases consult is requested to further evaluate and manage. Review of Systems - Review of Systems All systems: reviewed and no additional remarkable complaints except (as per HPI ) Past Patient History - Infectious Disease Hx of Infectious Diseases: None - Tetanus Immunizations Tetanus Immunization: Unknown - Past Medical History & Family History Past Medical History?: Yes - Past Social History Smoking Status: Former Smoker - CARDIAC Hx Cardiac Disorders: Yes (CAD ,DVT) Hx Hypertension: Yes - PULMONARY Hx Respiratory Disorders: Yes - NEUROLOGICAL Hx Neurological Disorder: Yes Hx Dizziness: Yes (syncope) - HEENT Hx HEENT Problems: Yes Other/Comment: wear glasses,L ear TORRES MARTINEZ - RENAL Hx Chronic Kidney Disease: Yes Hx Dialysis: Yes ([facility] T,TH,SAT) Date of Last Dialysis Treatment: 10/01/16 Hx Renal Failure: Yes - ENDOCRINE/METABOLIC Hx Endocrine Disorders: Yes Hx Diabetes Mellitus Type 2: Yes - HEMATOLOGICAL/ONCOLOGICAL Hx Blood Disorders: Yes - INTEGUMENTARY Hx Dermatological Problems: Yes Other/Comment: L great toe amputated,RT BKA - MUSCULOSKELETAL/RHEUMATOLOGICAL Hx Musculoskeletal Disorders: Yes Hx Falls: No Other/Comment: RT BKA - GASTROINTESTINAL Hx Gastrointestinal Disorders: Yes Hx Diverticulitis: Yes Hx Gastroesophageal Reflux: Yes Other/Comment: hx of c-diff - GENITOURINARY/GYNECOLOGICAL Hx Genitourinary Disorders: No - PSYCHIATRIC Hx Psychophysiologic Disorder: Yes Hx Anxiety: Yes Hx Depression: Yes Hx Substance Use: No - SURGICAL HISTORY Hx Amputation: Yes (L Great toe.RT BKA) Hx Coronary Artery Bypass Graft: Yes Hx Open Heart Surgery: Yes - ANESTHESIA Hx Anesthesia: Yes Hx Anesthesia Reactions: No Hx Malignant Hyperthermia: No Meds Allergies/Adverse Reactions: Allergies Allergy/AdvReac Type Severity Reaction Status Date / Time ciprofloxacin Allergy SWELLING Verified 11/02/16 22:28 clarithromycin [From Biaxin] Allergy SWELLING Verified 11/02/16 22:28 pepper Allergy SWELLING Verified 11/02/16 22:28 - Medications Medications: Current Medications Acetaminophen (Tylenol 325mg Tab) 650 mg PO Q6H PRN PRN Reason: Fever >100.4 F Albuterol/Ipratropium (Duoneb 3 Mg/0.5 Mg (3 Ml) Ud) 3 ml IH [id number] [facility] Last Admin: 11/02/16 21:59 Dose: Not Given Alprazolam (Xanax) 0.5 mg PO TID [facility] Amiodarone HCl (Cordarone) 200 mg PO DAILY [facility] Amlodipine Besylate (Norvasc) 10 mg PO DAILY [facility] Ascorbic Acid (Vitamin C 500 Mg Tab) 500 mg PO DAILY [facility] Aspirin (Ecotrin) 81 mg PO DAILY [facility] Atorvastatin Calcium (Lipitor) 80 mg PO DIN [facility] Carbidopa/Levodopa (Sinemet 10/100) 1 tab PO TID [facility] Carvedilol (Coreg) 6.25 mg PO Q12 [facility] Last Admin: 11/02/16 21:42 Dose: Not Given Clonidine HCl (Catapres) 0.3 mg PO BID [facility] Collagenase (Santyl) 0 gm TOP DAILY [facility] Escitalopram Oxalate (Lexapro) 10 mg PO DAILY [facility] Gabapentin (Neurontin) 100 mg PO BID [facility] PRN Reason: Protocol Hydralazine HCl (Apresoline) 100 mg PO Q8H [facility] Last Admin: 11/02/16 20:21 Dose: 100 mg Hydralazine HCl (Apresoline) 10 mg IVP Q6 PRN PRN Reason: Systolic Blood Pressure Linezolid (Zyvox 600mg/300ml D5w) 600 mg in 300 mls @ 200 mls/hr IVPB Q12 [facility] PRN Reason: Protocol Stop: 11/09/16 22:01 Last Admin: 11/02/16 21:44 Dose: 200 mls/hr Piperacillin Sod/Tazobactam Sod (Zosyn 3.375 In Ns 100ml) 100 mls @ 200 mls/hr IVPB Q8 [facility] PRN Reason: Protocol Stop: 11/10/16 06:01 Insulin Human Regular (Humulin R High) 0 units SC ACHS [facility] PRN Reason: Protocol Last Admin: 11/02/16 21:36 Dose: Not Given Lisinopril (Zestril) 80 mg PO DAILY [facility] Morphine Sulfate (Morphine) 2 mg IVP Q4H PRN PRN Reason: Pain, severe (8-10) Multivitamins (Thera Tab) 1 tab PO 0800 [facility] Oxycodone HCl (Oxycodone Immediate Release Tab) 15 mg PO QID [facility] Last Admin: 11/02/16 21:44 Dose: 15 mg Pantoprazole Sodium (Protonix Ec Tab) 40 mg PO ACB [facility] Primidone (Mysoline) 50 mg PO DAILY [facility] Sertraline HCl (Zoloft) 25 mg PO HS [facility] Last Admin: 11/02/16 21:44 Dose: 25 mg Sevelamer HCl (Renagel) 800 mg PO TID [facility] Silver Sulfadiazine (Silvadene 1% 20 Gm) 0 ea TOP DAILY [facility] Warfarin Sodium (Coumadin) 4 mg PO 1800 [facility] Zinc Sulfate (Zinc Sulfate 220 Mg Cap) 220 mg PO DAILY [facility] Physical Exam - Constitutional Appears: Non-toxic, No Acute Distress - Head Exam Head Exam: NORMAL INSPECTION - ENT Exam ENT Exam: Mucous Membranes Moist - Neck Exam Neck exam: Negative for: Meningismus - Respiratory Exam Respiratory Exam: Decreased Breath Sounds - Cardiovascular Exam Cardiovascular Exam: +S1, +S2 - GI/Abdominal Exam GI & Abdominal Exam: Soft. absent: Tenderness - Extremities Exam Additional comments: sacral area with dressings in place Results - Vital Signs Recent Vital Signs: Last Vital Signs Temp 99.4 F 11/02/16 15:54 Pulse 56 L 11/02/16 21:42 Resp 16 11/02/16 18:45 BP 175/64 H 11/02/16 21:42 Pulse Ox 98 11/02/16 18:45 - Labs Result Diagrams: 11/03/16 07:00 11/03/16 07:00 Labs: Laboratory Results - last 24 hr 11/02/16 21:20 POC Glucose (mg/dL) 102 Assessment & Plan - Assessment and Plan (Free Text) Plan: Assessment sacral decubitus ulcer, currently unstageable, R/O infection history of left foot ulcer, which grew E. faecalis, E. coli and Pseudomonas history of acute left occipital lobe infarct history of sepsis due to left sided healthcare-associated pneumonia history of Left heel ulcer with evidence of acute osteomyelitis on bone scan on 07/2016 ESRD on HD CAD S/P CABG chronic CHF DM history of anti-phospholipid antibody syndrome S/P right below the knee amputation Plan started patient on Zyvox and Zosyn based on previous cultures; will check wound cx, blood cx and Surgery evaluation and plans
[2016-11-04] MEDS: Albuterol-Ipratrop 3 mg / 0.5 (3 ml) UD IH SCH ×4 (03:00→22:13)
[2016-11-04] MEDS: Piperacillin/Tazobact 3.375 gm 100 ML IVPB SCH ×3 (06:54→17:17)
[2016-11-04 07:39] LABS: BASO # 0.02 K/mm3 (0.0-2.0); BASO % 0.2 % (0.0-3.0); EOS # 0.4 (0.0-0.7); EOS % 4.2 % (1.5-5.0); GRAN # 7.26 (1.4-6.5); GRAN % 76.2 % (50.0-68.0); HEMOGLOBIN 9.3 gm/dL (12.0-16.0); LYMPH # 1.1 (1.2-3.4); MEAN CELL VOLUME 84.6 fL (80.0-105.0); MEAN CORPUSCULAR HEMOGLOBIN 25.5 pg (25.0-35.0); MEAN CORPUSCULAR HGB CONC 30.2 g/dl (31.0-37.0); MEAN PLATELET VOLUME 10.2 fl (7.0-11.0); MONO # 0.8 (0.1-0.6); MONO % 8.4 % (1.0-6.0); PLATELET COUNT 303 10^3/uL (120.0-450.0); RBC 3.64 10^6/uL (3.5-6.1); RED CELL DISTRIBUTION WIDTH 17.2 % (11.5-14.5); WHITE BLOOD COUNT 9.5 10^3/ul (4.5-11.0)
[2016-11-04 07:49] LABS: INR 2.8 (0.93-1.08); PROTHROMBIN TIME 30.2 Seconds (9.9-11.8)
--- NOTE | 2016-11-04 07:50 | CP.PCM.PN ---
Subjective - Date & Time of Evaluation Date of Evaluation: 11/04/16 Time of Evaluation: 07:00 - Subjective Subjective: General surgery progress note Patient seen and examined at bedside. No acute events overnight. Offers no new complaints at this time. Denies fever, chills, chest pain, SOB, abdominal pain , and N/V. Objective - Vital Signs/Intake and Output Vital Signs (last 24 hours): Temp Pulse Resp BP Pulse Ox 98.9 F 62 20 177/80 H 98 11/03/16 17:00 11/04/16 06:26 11/03/16 17:00 11/04/16 06:26 11/03/16 17:00 Intake and Output: 11/04/16 11/04/16 06:59 18:59 Intake Total 540 Balance 540 - Medications Medications: Current Medications Acetaminophen (Tylenol 325mg Tab) 650 mg PO Q6H PRN PRN Reason: Fever >100.4 F Albuterol/Ipratropium (Duoneb 3 Mg/0.5 Mg (3 Ml) Ud) 3 ml IH [id number] [facility] Last Admin: 11/04/16 03:00 Dose: 3 ml Alprazolam (Xanax) 0.5 mg PO TID [facility] Last Admin: 11/03/16 19:55 Dose: Not Given Amiodarone HCl (Cordarone) 200 mg PO DAILY [facility] Last Admin: 11/03/16 09:15 Dose: 200 mg Amlodipine Besylate (Norvasc) 10 mg PO DAILY [facility] Last Admin: 11/03/16 09:16 Dose: 10 mg Ascorbic Acid (Vitamin C 500 Mg Tab) 500 mg PO DAILY [facility] Last Admin: 11/03/16 09:14 Dose: 500 mg Aspirin (Ecotrin) 81 mg PO DAILY [facility] Last Admin: 11/03/16 09:15 Dose: 81 mg Atorvastatin Calcium (Lipitor) 80 mg PO DIN [facility] Last Admin: 11/03/16 16:45 Dose: 80 mg Carbidopa/Levodopa (Sinemet 10/100) 1 tab PO TID [facility] Last Admin: 11/03/16 17:40 Dose: 1 tab Carvedilol (Coreg) 6.25 mg PO Q12 [facility] Last Admin: 11/03/16 22:31 Dose: 6.25 mg Clonidine HCl (Catapres) 0.3 mg PO 0600,1400,2200 [facility] Last Admin: 11/04/16 06:26 Dose: 0.3 mg Collagenase (Santyl) 0 gm TOP DAILY [facility] Escitalopram Oxalate (Lexapro) 10 mg PO DAILY [facility] Last Admin: 11/03/16 09:15 Dose: 10 mg Gabapentin (Neurontin) 100 mg PO BID [facility] PRN Reason: Protocol Last Admin: 11/03/16 17:40 Dose: 100 mg Hydralazine HCl (Apresoline) 100 mg PO Q8H [facility] Last Admin: 11/04/16 03:24 Dose: 100 mg Hydralazine HCl (Apresoline) 10 mg IVP Q6 PRN PRN Reason: Systolic Blood Pressure Last Admin: 11/03/16 06:04 Dose: 10 mg Linezolid (Zyvox 600mg/300ml D5w) 600 mg in 300 mls @ 200 mls/hr IVPB Q12 [facility] PRN Reason: Protocol Stop: 11/09/16 22:01 Last Admin: 11/03/16 22:33 Dose: 200 mls/hr Piperacillin Sod/Tazobactam Sod (Zosyn 3.375 In Ns 100ml) 100 mls @ 200 mls/hr IVPB Q8 [facility] PRN Reason: Protocol Stop: 11/10/16 06:01 Last Admin: 11/04/16 06:54 Dose: 200 mls/hr Insulin Human Regular (Humulin R High) 0 units SC ACHS [facility] PRN Reason: Protocol Last Admin: 11/03/16 16:41 Dose: Not Given Lisinopril (Zestril) 80 mg PO DAILY [facility] Last Admin: 11/03/16 09:16 Dose: 80 mg Morphine Sulfate (Morphine) 2 mg IVP Q4H PRN PRN Reason: Pain, severe (8-10) Multivitamins (Thera Tab) 1 tab PO 0800 [facility] Last Admin: 11/03/16 08:32 Dose: 1 tab Oxycodone HCl (Oxycodone Immediate Release Tab) 15 mg PO QID [facility] Last Admin: 11/03/16 22:35 Dose: 15 mg Pantoprazole Sodium (Protonix Ec Tab) 40 mg PO ACB [facility] Last Admin: 11/03/16 08:33 Dose: 40 mg Primidone (Mysoline) 50 mg PO DAILY [facility] Last Admin: 11/03/16 09:15 Dose: 50 mg Sertraline HCl (Zoloft) 25 mg PO HS [facility] Last Admin: 11/03/16 22:32 Dose: 25 mg Sevelamer HCl (Renagel) 800 mg PO WM [facility] Last Admin: 11/03/16 16:45 Dose: 800 mg Warfarin Sodium (Coumadin) 4 mg PO 1800 [facility] Last Admin: 11/03/16 17:41 Dose: 4 mg Zinc Sulfate (Zinc Sulfate 220 Mg Cap) 220 mg PO DAILY [facility] Last Admin: 11/03/16 09:15 Dose: 220 mg - Labs Labs: 11/04/16 07:15 11/03/16 07:00 PT 27.0 Seconds (9.9-11.8) H 11/03/16 07:00 INR 2.50 (0.93-1.08) H 11/03/16 07:00 APTT 48.3 Seconds (23.7-30.8) H 11/02/16 16:39 - Additional Findings Additional findings: - Constitutional Appears: Non-toxic, No Acute Distress - Head Exam Head Exam: ATRAUMATIC, NORMAL INSPECTION, NORMOCEPHALIC - Eye Exam Eye Exam: EOMI, Normal appearance - ENT Exam ENT Exam: Mucous Membranes Moist, Normal Exam - Neck Exam Neck Exam: Full ROM, Normal Inspection - Respiratory Exam Respiratory Exam: Clear to Ausculation Bilateral, NORMAL BREATHING PATTERN - Cardiovascular Exam Cardiovascular Exam: REGULAR RHYTHM, +S1, +S2 - GI/Abdominal Exam GI & Abdominal Exam: Soft, Normal Bowel Sounds - Extremities Exam Additional comments: R BKA, anterior aspect of knee with ulcerated wound- optifoam in place; Left heel with ulcerated wound- optifoam in place - Neurological Exam Neurological Exam: Alert, Awake. absent: Oriented x3 (AOx 2 (self, place, not time)) - Psychiatric Exam Psychiatric exam: Normal Affect, Normal Mood - Skin Skin Exam: absent: Intact (Sacral area with ulcer, unstagable; Right anterior knee with ulcer; Left heel with ulcer- optifoam covering all ulcers in place) Assessment and Plan - Assessment and Plan (Free Text) Assessment: 66F w/sacral decubitus ulcer, left heel ulcer, and right knee ulcer Wound care Optifoam santyl to sacrum, left heel, and right knee ulcers Air mattress Turn pt Q2H Mutipodus Boots Recommend ID review medication list due to FILIPPO All other mgmt as per primary team Will TIEN attending
[2016-11-04 08:01] LABS: ALB/GLOB RATIO 0.9 (1.1-1.8); ALBUMIN 3.3 g/dL (3.0-4.8); CALCIUM 10.6 mg/dL (8.4-10.5)
[2016-11-04] MEDS: Pantoprazole 40 mg EC Tab PO SCH (08:03)
[2016-11-04] MEDS: Insulin Reg-HIGH-Coverage SC SCH ×4 (08:03→22:23)
[2016-11-04] MEDS: Multivitamin Therapeutic Tab PO SCH (08:03)
[2016-11-04] MEDS ORDERED: Piperacillin/Tazobact 2.25gm 2.25 GM/100 ML BAG IVPB SCH (09:30)
[2016-11-04] MEDS: oxyCODONE 15 mg Immediate Release Tab PO SCH ×4 (09:59→21:30)
[2016-11-04] MEDS: Collagenase 250 Units/gm Ointment(30 gm) TOP SCH (10:01)
[2016-11-04] MEDS: Linezolid 600 mg in D5W 300 ml 600 MG/300 ML BAG IVPB SCH ×2 (10:02→21:30)
--- NOTE | 2016-11-04 15:43 | CP.PCM.PN ---
Subjective - Date & Time of Evaluation Date of Evaluation: 11/04/16 Time of Evaluation: 02:00 - Subjective Subjective: Pt seen at bedside for left heel decubiti; pt is seen with heel offloaded in a multipodus boot on a pillow; pt is sleeping and does not awake with dressing change Objective - Vital Signs/Intake and Output Vital Signs (last 24 hours): Temp Pulse Resp BP Pulse Ox 98.9 F 58 L 20 192/67 H 98 11/03/16 17:00 11/04/16 14:00 11/03/16 17:00 11/04/16 13:55 11/03/16 17:00 Intake and Output: 11/04/16 11/04/16 06:59 18:59 Intake Total 540 360 Balance 540 360 - Medications Medications: Current Medications Acetaminophen (Tylenol 325mg Tab) 650 mg PO Q6H PRN PRN Reason: Fever >100.4 F Albuterol/Ipratropium (Duoneb 3 Mg/0.5 Mg (3 Ml) Ud) 3 ml IH [id number] [facility] Last Admin: 11/04/16 13:33 Dose: 3 ml Alprazolam (Xanax) 0.5 mg PO TID [facility] Last Admin: 11/04/16 13:56 Dose: Not Given Amiodarone HCl (Cordarone) 200 mg PO DAILY [facility] Last Admin: 11/04/16 10:00 Dose: 200 mg Amlodipine Besylate (Norvasc) 10 mg PO DAILY [facility] Last Admin: 11/04/16 09:58 Dose: 10 mg Ascorbic Acid (Vitamin C 500 Mg Tab) 500 mg PO DAILY [facility] Last Admin: 11/04/16 09:59 Dose: 500 mg Aspirin (Ecotrin) 81 mg PO DAILY [facility] Last Admin: 11/04/16 10:00 Dose: 81 mg Atorvastatin Calcium (Lipitor) 80 mg PO DIN [facility] Last Admin: 11/03/16 16:45 Dose: 80 mg Carbidopa/Levodopa (Sinemet 10/100) 1 tab PO TID [facility] Last Admin: 11/04/16 13:55 Dose: 1 tab Carvedilol (Coreg) 6.25 mg PO Q12 [facility] Last Admin: 11/04/16 09:58 Dose: 6.25 mg Clonidine HCl (Catapres) 0.3 mg PO 0600,1400,2200 [facility] Last Admin: 11/04/16 13:55 Dose: 0.3 mg Collagenase (Santyl) 0 gm TOP DAILY [facility] Last Admin: 11/04/16 10:01 Dose: 1 gm Escitalopram Oxalate (Lexapro) 10 mg PO DAILY [facility] Last Admin: 11/04/16 10:00 Dose: 10 mg Gabapentin (Neurontin) 100 mg PO BID [facility] PRN Reason: Protocol Last Admin: 11/04/16 09:44 Dose: 100 mg Hydralazine HCl (Apresoline) 100 mg PO Q8H [facility] Last Admin: 11/04/16 09:58 Dose: 100 mg Hydralazine HCl (Apresoline) 10 mg IVP Q6 PRN PRN Reason: Systolic Blood Pressure Last Admin: 11/03/16 06:04 Dose: 10 mg Linezolid (Zyvox 600mg/300ml D5w) 600 mg in 300 mls @ 200 mls/hr IVPB Q12 [facility] PRN Reason: Protocol Stop: 11/09/16 22:01 Last Admin: 11/04/16 10:02 Dose: 200 mls/hr Piperacillin Sod/Tazobactam Sod (Zosyn 3.375 In Ns 100ml) 100 mls @ 200 mls/hr IVPB Q6 [facility] PRN Reason: Protocol Stop: 11/04/16 18:29 Last Admin: 11/04/16 12:57 Dose: 200 mls/hr Insulin Human Regular (Humulin R High) 0 units SC ACHS [facility] PRN Reason: Protocol Last Admin: 11/04/16 12:57 Dose: 2 units Lisinopril (Zestril) 80 mg PO DAILY [facility] Last Admin: 11/04/16 09:58 Dose: 80 mg Morphine Sulfate (Morphine) 2 mg IVP Q4H PRN PRN Reason: Pain, severe (8-10) Multivitamins (Thera Tab) 1 tab PO 0800 [facility] Last Admin: 11/04/16 08:03 Dose: 1 tab Nystatin (Nystop Topical Powder) 0 gm TOP BID [facility] Oxycodone HCl (Oxycodone Immediate Release Tab) 15 mg PO QID [facility] Last Admin: 11/04/16 13:55 Dose: 15 mg Pantoprazole Sodium (Protonix Ec Tab) 40 mg PO ACB [facility] Last Admin: 11/04/16 08:03 Dose: 40 mg Primidone (Mysoline) 50 mg PO DAILY [facility] Last Admin: 11/04/16 10:00 Dose: 50 mg Sertraline HCl (Zoloft) 25 mg PO HS [facility] Last Admin: 11/03/16 22:32 Dose: 25 mg Sevelamer HCl (Renagel) 800 mg PO WM [facility] Last Admin: 11/04/16 12:57 Dose: 800 mg Warfarin Sodium (Coumadin) 4 mg PO 1800 [facility] Last Admin: 11/03/16 17:41 Dose: 4 mg Zinc Sulfate (Zinc Sulfate 220 Mg Cap) 220 mg PO DAILY [facility] Last Admin: 11/04/16 09:45 Dose: 220 mg - Labs Labs: 11/04/16 07:15 11/04/16 07:15 PT 30.2 Seconds (9.9-11.8) H* 11/04/16 07:15 INR 2.80 (0.93-1.08) H 11/04/16 07:15 APTT 48.3 Seconds (23.7-30.8) H 11/02/16 16:39 - Extremities Exam Additional comments: RLE is BKA LLE is contracted at knee from femur fracture; left heel with history of OM in the past now with DTI and open wound 1.5x1.5x.2 cm tissue is hemorragic no sinus tract to bone +cellulitis noted; mild edema noted no abcess or pus noted moderate drainage on the dressing Assessment and Plan - Assessment and Plan (Free Text) Assessment: Deep Tissue Injury with hemorragic ulcer to the left heel DM PVD Negron Grade 3 ulcer to the left heel Plan: continue offloading C&S done start collagenase foam dressing daily antibiotics as per ID arterial doppler from 10/14 reviewed 55-90%stenosis of left SFA consult Dr Carl Morris vascular
--- NOTE | 2016-11-04 17:18 | CP.PCM.PN ---
Subjective - Date & Time of Evaluation Date of Evaluation: 11/04/16 Time of Evaluation: 09:35 - Subjective Subjective: Comfortable, not in distress, afebrile. Objective - Vital Signs/Intake and Output Vital Signs (last 24 hours): Temp Pulse Resp BP Pulse Ox 98.9 F 62 20 177/80 H 98 11/03/16 17:00 11/04/16 06:26 11/03/16 17:00 11/04/16 06:26 11/03/16 17:00 Intake and Output: 11/04/16 11/04/16 06:59 18:59 Intake Total 540 Balance 540 - Medications Medications: Current Medications Acetaminophen (Tylenol 325mg Tab) 650 mg PO Q6H PRN PRN Reason: Fever >100.4 F Albuterol/Ipratropium (Duoneb 3 Mg/0.5 Mg (3 Ml) Ud) 3 ml IH [id number] [facility] Last Admin: 11/04/16 07:44 Dose: 3 ml Alprazolam (Xanax) 0.5 mg PO TID [facility] Last Admin: 11/03/16 19:55 Dose: Not Given Amiodarone HCl (Cordarone) 200 mg PO DAILY [facility] Last Admin: 11/03/16 09:15 Dose: 200 mg Amlodipine Besylate (Norvasc) 10 mg PO DAILY [facility] Last Admin: 11/03/16 09:16 Dose: 10 mg Ascorbic Acid (Vitamin C 500 Mg Tab) 500 mg PO DAILY [facility] Last Admin: 11/03/16 09:14 Dose: 500 mg Aspirin (Ecotrin) 81 mg PO DAILY [facility] Last Admin: 11/03/16 09:15 Dose: 81 mg Atorvastatin Calcium (Lipitor) 80 mg PO DIN [facility] Last Admin: 11/03/16 16:45 Dose: 80 mg Carbidopa/Levodopa (Sinemet 10/100) 1 tab PO TID [facility] Last Admin: 11/03/16 17:40 Dose: 1 tab Carvedilol (Coreg) 6.25 mg PO Q12 [facility] Last Admin: 11/03/16 22:31 Dose: 6.25 mg Clonidine HCl (Catapres) 0.3 mg PO 0600,1400,2200 [facility] Last Admin: 11/04/16 06:26 Dose: 0.3 mg Collagenase (Santyl) 0 gm TOP DAILY [facility] Escitalopram Oxalate (Lexapro) 10 mg PO DAILY [facility] Last Admin: 11/03/16 09:15 Dose: 10 mg Gabapentin (Neurontin) 100 mg PO BID [facility] PRN Reason: Protocol Last Admin: 11/03/16 17:40 Dose: 100 mg Hydralazine HCl (Apresoline) 100 mg PO Q8H [facility] Last Admin: 11/04/16 03:24 Dose: 100 mg Hydralazine HCl (Apresoline) 10 mg IVP Q6 PRN PRN Reason: Systolic Blood Pressure Last Admin: 11/03/16 06:04 Dose: 10 mg Linezolid (Zyvox 600mg/300ml D5w) 600 mg in 300 mls @ 200 mls/hr IVPB Q12 [facility] PRN Reason: Protocol Stop: 11/09/16 22:01 Last Admin: 11/03/16 22:33 Dose: 200 mls/hr Piperacillin Sod/Tazobactam Sod (Zosyn 3.375 In Ns 100ml) 100 mls @ 200 mls/hr IVPB Q8 [facility] PRN Reason: Protocol Stop: 11/10/16 06:01 Last Admin: 11/04/16 06:54 Dose: 200 mls/hr Insulin Human Regular (Humulin R High) 0 units SC ACHS [facility] PRN Reason: Protocol Last Admin: 11/04/16 08:03 Dose: Not Given Lisinopril (Zestril) 80 mg PO DAILY [facility] Last Admin: 11/03/16 09:16 Dose: 80 mg Morphine Sulfate (Morphine) 2 mg IVP Q4H PRN PRN Reason: Pain, severe (8-10) Multivitamins (Thera Tab) 1 tab PO 0800 [facility] Last Admin: 11/04/16 08:03 Dose: 1 tab Oxycodone HCl (Oxycodone Immediate Release Tab) 15 mg PO QID [facility] Last Admin: 11/03/16 22:35 Dose: 15 mg Pantoprazole Sodium (Protonix Ec Tab) 40 mg PO ACB [facility] Last Admin: 11/04/16 08:03 Dose: 40 mg Primidone (Mysoline) 50 mg PO DAILY [facility] Last Admin: 11/03/16 09:15 Dose: 50 mg Sertraline HCl (Zoloft) 25 mg PO HS [facility] Last Admin: 11/03/16 22:32 Dose: 25 mg Sevelamer HCl (Renagel) 800 mg PO WM [facility] Last Admin: 11/04/16 08:03 Dose: 800 mg Warfarin Sodium (Coumadin) 4 mg PO 1800 [facility] Last Admin: 11/03/16 17:41 Dose: 4 mg Zinc Sulfate (Zinc Sulfate 220 Mg Cap) 220 mg PO DAILY [facility] Last Admin: 11/03/16 09:15 Dose: 220 mg - Labs Labs: 11/04/16 07:15 11/04/16 07:15 PT 30.2 Seconds (9.9-11.8) H* 11/04/16 07:15 INR 2.80 (0.93-1.08) H 11/04/16 07:15 APTT 48.3 Seconds (23.7-30.8) H 11/02/16 16:39 - Constitutional Appears: Non-toxic, No Acute Distress - Head Exam Head Exam: NORMAL INSPECTION - Neck Exam Neck Exam: absent: Meningismus - Respiratory Exam Respiratory Exam: Decreased Breath Sounds - Cardiovascular Exam Cardiovascular Exam: +S1, +S2 - GI/Abdominal Exam GI & Abdominal Exam: Soft. absent: Tenderness Assessment and Plan - Assessment and Plan (Free Text) Plan: Assessment sacral decubitus ulcer, currently unstageable, R/O infection history of left foot ulcer, which grew E. faecalis, E. coli and Pseudomonas history of acute left occipital lobe infarct history of sepsis due to left sided healthcare-associated pneumonia history of Left heel ulcer with evidence of acute osteomyelitis on bone scan on 07/2016 ESRD on HD CAD S/P CABG chronic CHF DM history of anti-phospholipid antibody syndrome S/P right below the knee amputation Plan continue on Zyvox and Zosyn day 2 based on previous cultures; will check wound cx, blood cx and Surgery evaluation and plans; treatment of sacral ulcer will only be fruitful if there is plan for diverting colostomy - if no plan for this , conservative therapy should be done (ie. local wound care)
[2016-11-04] MEDS: Nystatin 100,000 Units/gm Topical Pow(15 gm) TOP SCH (17:42)
--- NOTE | 2016-11-04 20:56 | CP.PCM.PN ---
Subjective - Date & Time of Evaluation Date of Evaluation: 11/04/16 Time of Evaluation: 09:00 - Subjective Subjective: pt s/e bedside. Still having pain from decubitus ulcers. Daughter states that she is not at her baseline mentally, not correlated clinically. Will continue to follow. Objective - Vital Signs/Intake and Output Vital Signs (last 24 hours): Temp Pulse Resp BP Pulse Ox 98.8 F 67 20 194/74 H 97 11/04/16 16:00 11/04/16 18:30 11/04/16 16:00 11/04/16 18:30 11/04/16 16:00 Intake and Output: 11/04/16 11/05/16 18:59 06:59 Intake Total 360 Balance 360 - Medications Medications: Current Medications Acetaminophen (Tylenol 325mg Tab) 650 mg PO Q6H PRN PRN Reason: Fever >100.4 F Albuterol/Ipratropium (Duoneb 3 Mg/0.5 Mg (3 Ml) Ud) 3 ml IH [id number] [facility] Last Admin: 11/04/16 13:33 Dose: 3 ml Alprazolam (Xanax) 0.5 mg PO TID [facility] Last Admin: 11/04/16 17:34 Dose: Not Given Amiodarone HCl (Cordarone) 200 mg PO DAILY [facility] Last Admin: 11/04/16 10:00 Dose: 200 mg Amlodipine Besylate (Norvasc) 10 mg PO DAILY [facility] Last Admin: 11/04/16 09:58 Dose: 10 mg Ascorbic Acid (Vitamin C 500 Mg Tab) 500 mg PO DAILY [facility] Last Admin: 11/04/16 09:59 Dose: 500 mg Aspirin (Ecotrin) 81 mg PO DAILY [facility] Last Admin: 11/04/16 10:00 Dose: 81 mg Atorvastatin Calcium (Lipitor) 80 mg PO DIN [facility] Last Admin: 11/04/16 17:17 Dose: 80 mg Carbidopa/Levodopa (Sinemet 10/100) 1 tab PO TID [facility] Last Admin: 11/04/16 17:17 Dose: 1 tab Carvedilol (Coreg) 6.25 mg PO Q12 [facility] Last Admin: 11/04/16 09:58 Dose: 6.25 mg Clonidine HCl (Catapres) 0.3 mg PO 0600,1400,2200 [facility] Last Admin: 11/04/16 13:55 Dose: 0.3 mg Collagenase (Santyl) 0 gm TOP DAILY [facility] Last Admin: 11/04/16 10:01 Dose: 1 gm Escitalopram Oxalate (Lexapro) 10 mg PO DAILY [facility] Last Admin: 11/04/16 10:00 Dose: 10 mg Gabapentin (Neurontin) 100 mg PO BID [facility] PRN Reason: Protocol Last Admin: 11/04/16 17:17 Dose: 100 mg Hydralazine HCl (Apresoline) 100 mg PO Q8H [facility] Last Admin: 11/04/16 17:32 Dose: 100 mg Hydralazine HCl (Apresoline) 10 mg IVP Q6 PRN PRN Reason: Systolic Blood Pressure Last Admin: 11/04/16 18:30 Dose: 10 mg Linezolid (Zyvox 600mg/300ml D5w) 600 mg in 300 mls @ 200 mls/hr IVPB Q12 [facility] PRN Reason: Protocol Stop: 11/09/16 22:01 Last Admin: 11/04/16 10:02 Dose: 200 mls/hr Insulin Human Regular (Humulin R High) 0 units SC [facility] PRN Reason: Protocol Last Admin: 11/04/16 17:18 Dose: 2 units Lisinopril (Zestril) 80 mg PO DAILY [facility] Last Admin: 11/04/16 09:58 Dose: 80 mg Morphine Sulfate (Morphine) 2 mg IVP Q4H PRN PRN Reason: Pain, severe (8-10) Multivitamins (Thera Tab) 1 tab PO 0800 [facility] Last Admin: 11/04/16 08:03 Dose: 1 tab Nystatin (Nystop Topical Powder) 0 gm TOP BID [facility] Last Admin: 11/04/16 17:42 Dose: 1 gm Oxycodone HCl (Oxycodone Immediate Release Tab) 15 mg PO QID [facility] Last Admin: 11/04/16 17:17 Dose: 15 mg Pantoprazole Sodium (Protonix Ec Tab) 40 mg PO ACB [facility] Last Admin: 11/04/16 08:03 Dose: 40 mg Primidone (Mysoline) 50 mg PO DAILY [facility] Last Admin: 11/04/16 10:00 Dose: 50 mg Sertraline HCl (Zoloft) 25 mg PO HS [facility] Last Admin: 11/03/16 22:32 Dose: 25 mg Sevelamer HCl (Renagel) 800 mg PO WM [facility] Last Admin: 11/04/16 17:17 Dose: 800 mg Warfarin Sodium (Coumadin) 4 mg PO 1800 [facility] Last Admin: 11/04/16 17:17 Dose: 4 mg Zinc Sulfate (Zinc Sulfate 220 Mg Cap) 220 mg PO DAILY [facility] Last Admin: 11/04/16 09:45 Dose: 220 mg - Labs Labs: 11/04/16 07:15 11/04/16 07:15 PT 30.2 Seconds (9.9-11.8) H* 11/04/16 07:15 INR 2.80 (0.93-1.08) H 11/04/16 07:15 APTT 48.3 Seconds (23.7-30.8) H 11/02/16 16:39 - Head Exam Head Exam: ATRAUMATIC, NORMAL INSPECTION, NORMOCEPHALIC - Eye Exam Eye Exam: EOMI, Normal appearance, PERRL Pupil Exam: NORMAL ACCOMODATION - ENT Exam ENT Exam: Mucous Membranes Moist, Normal Exam - Neck Exam Neck Exam: Normal Inspection - Respiratory Exam Respiratory Exam: Clear to Ausculation Bilateral, NORMAL BREATHING PATTERN - Cardiovascular Exam Cardiovascular Exam: REGULAR RHYTHM, +S1, +S2 - GI/Abdominal Exam GI & Abdominal Exam: Soft, Normal Bowel Sounds - Extremities Exam Extremities Exam: Full ROM - Back Exam Back Exam: NORMAL INSPECTION - Neurological Exam Neurological Exam: Alert, Awake, CN II-XII Intact, Normal Gait, Oriented x3 - Psychiatric Exam Psychiatric exam: Normal Affect, Normal Mood - Skin Skin Exam: Intact - Additional Findings Additional findings: Sacral Decub ulcer- Unstagable 7x8cm Right Patella- Stage 3 4x5 Left calcaneous- unstagable 3x3 Assessment and Plan - Assessment and Plan (Free Text) Assessment: This is a 66Y F with PMH ESRD on HD (T,, ), CAD s/p CABG, seizures, depression, GERD, CHF, IDDM, Parkinsons, DVTs, antiphospholipid syndrome, and CVA admitted for sacral decubitis ulcer as well as hypertensive urgency. Plan: 1. Hypertensive urgency- improved - Head CT showed no acute findings - Continue Amiodarone, Norvasc, Lisinopril, Hydralazine, Coreg, Clonidine - Clonidine increased to TID - Hydralazine PRN SBP >170 2. Sacral decubitus ulcer- unstagable - afebrile, with mild leukocytosis - Podiatry consulted for LE wounds: continue offloading; C&S done; start collagenase foam dressing daily - Surgery: Wound care, air mattress, frequent turning Optifoam santyl to sacrum , left heel, and right knee ulcers - ID consulted- recs appreciated - Continue Zosyn and Zyvox - Wound cultures: Coag Neg Staph - Zinc, Multivitamin, Vitamin C - Continue Pain control 3. ESRD on HD - will continue HD schedule - Continue Renagel - Nephro Consulted- Dr. Eller who she sees as outpt for HD 4. IDDM - ISS - BGM ACHS 5. CAD s/p CABG - lipitor, ASA 6. Antiphospholipid syndrome - Continue Coumadin - INR therapeutic 7. Hx of Depression and anxiety - Continue Xanax and Lexapro 8. Hx of Parkinsons - Continue Primodone and Sinemet GI ppx: Protonix DVT ppx: Coumadin Dispo: Patient will be transferred back to rehab facility once medically cleared. Case seen, discussed and reviewed with attending
[2016-11-05] MEDS: Albuterol-Ipratrop 3 mg / 0.5 (3 ml) UD IH SCH ×4 (03:23→20:12)
--- NOTE | 2016-11-05 06:36 | PN ---
DATE: 11/05/2016 SUBJECTIVE: The patient has no complaints of any chest pain, shortness of breath or headaches or dizziness. PHYSICAL EXAMINATION: VITAL SIGNS: Temperature is 98.5, pulse of 55, blood pressure is 160/50, respirations 18, O2 saturation is 100%. GENERAL: The patient is lying in bed, flat, comfortable. HEENT: No oral lesion. Anicteric sclerae. Moist mucosa. NECK: No JVD, adenopathy, or thyromegaly. CARDIOVASCULAR: S1 and S2, regular. No murmurs, rubs, or gallops. LUNGS: Clear to auscultation bilaterally. No wheeze, rales, or rhonchi. ABDOMEN: Bowel sounds are positive, soft, nontender and nondistended. EXTREMITIES: no cyanosis, clubbing or edema. LABS: Reviewed. ASSESSMENT: 1. End-stage renal disease on hemodialysis. 2. Secondary hyperparathyroidism. 3. Deep vein thrombosis/antiphospholipid antibody on anticoagulation. 4. Coronary artery disease with stenting. 5. Hypertension. 6. Parkinson's. 7. Diabetes type 2. 8. Diverticulosis. 9. Peripheral arterial disease. 10. Left renal cyst. 11. Sacral pressure ulcers. 12. Gastroesophageal reflux disease. 13. Chronic anemia. 14. Right below knee amputation. 15. Hypertension. PLAN: The patient is going to get dialyzed. Today is a regular dialysis day. She is on hydralazine. She is on clonidine. The patient is on amiodarone. She is on Coumadin for her anticoagulation. She is on Neurontin for her neuropathy. She is receiving Protonix daily. The patient is on Venogel for her secondary hyperparathyroidism. She is on Zoloft for her depression and anxiety. She is on linezolid. She has a light wound culture that shows coag negative staph. We will continue to follow closely. Bebo Eller MD
[2016-11-05 07:30] LABS: BASO # 0.03 K/mm3 (0.0-2.0); BASO % 0.3 % (0.0-3.0); EOS # 0.4 (0.0-0.7); EOS % 3.5 % (1.5-5.0); GRAN # 8.98 (1.4-6.5); MEAN CELL VOLUME 83.3 fl (80.0-105.0); MEAN CORPUSCULAR HEMOGLOBIN 25.5 pg (25.0-35.0); MEAN CORPUSCULAR HGB CONC 30.6 g/dl (31.0-37.0); MEAN PLATELET VOLUME 10.3 fl (7.0-11.0); MONO # 0.8 (0.1-0.6); MONO % 7.2 % (1.0-6.0); PLATELET COUNT 309 10^3/uL (120.0-450.0); RBC 3.53 10^6/uL (3.5-6.1); RED CELL DISTRIBUTION WIDTH 17.3 % (11.5-14.5); WHITE BLOOD COUNT 11.2 10^3/ul (4.5-11.0)
[2016-11-05 07:35] LABS: INR 3.22 (0.93-1.08); PROTHROMBIN TIME 34.8 Seconds (9.9-11.8)
[2016-11-05] MEDS: Insulin Reg-HIGH-Coverage SC SCH ×4 (07:46→21:25)
[2016-11-05] MEDS: Multivitamin Therapeutic Tab PO SCH (07:46)
[2016-11-05] MEDS: Pantoprazole 40 mg EC Tab PO SCH (07:46)
[2016-11-05 07:53] LABS: ALB/GLOB RATIO 0.9 (1.1-1.8); ALBUMIN 3.3 g/dL (3.0-4.8); CALCIUM 10.4 mg/dL (8.4-10.5); MAGNESIUM 2.1 mg/dL (1.7-2.2)
--- NOTE | 2016-11-05 08:05 | CP.PCM.PN ---
Subjective - Date & Time of Evaluation Date of Evaluation: 11/05/16 Time of Evaluation: 07:05 - Subjective Subjective: Surgery Progress Note Dr. Christianson 66 year old female patient was examined today at bedside AAO x3, in no acute distress. Patient has no current complaints at this time. States that her dressings are changed regularly and santyl is being applied. Patient denies n/v/ d, sob, chest pain, headache. Objective - Vital Signs/Intake and Output Vital Signs (last 24 hours): Temp Pulse Resp BP Pulse Ox 98.4 F 57 L 20 161/61 H 99 11/05/16 06:00 11/05/16 06:27 11/05/16 06:00 11/05/16 06:27 11/05/16 06:00 Intake and Output: 11/05/16 11/05/16 06:59 18:59 Intake Total 180 Balance 180 - Medications Medications: Current Medications Acetaminophen (Tylenol 325mg Tab) 650 mg PO Q6H PRN PRN Reason: Fever >100.4 F Albuterol/Ipratropium (Duoneb 3 Mg/0.5 Mg (3 Ml) Ud) 3 ml IH [id number] [facility] Last Admin: 11/05/16 07:53 Dose: 3 ml Alprazolam (Xanax) 0.5 mg PO TID [facility] Last Admin: 11/04/16 17:34 Dose: Not Given Amiodarone HCl (Cordarone) 200 mg PO DAILY [facility] Last Admin: 11/04/16 10:00 Dose: 200 mg Amlodipine Besylate (Norvasc) 10 mg PO DAILY [facility] Last Admin: 11/04/16 09:58 Dose: 10 mg Ascorbic Acid (Vitamin C 500 Mg Tab) 500 mg PO DAILY [facility] Last Admin: 11/04/16 09:59 Dose: 500 mg Aspirin (Ecotrin) 81 mg PO DAILY [facility] Last Admin: 11/04/16 10:00 Dose: 81 mg Atorvastatin Calcium (Lipitor) 80 mg PO DIN [facility] Last Admin: 11/04/16 17:17 Dose: 80 mg Carbidopa/Levodopa (Sinemet 10/100) 1 tab PO TID [facility] Last Admin: 11/04/16 17:17 Dose: 1 tab Carvedilol (Coreg) 6.25 mg PO Q12 [facility] Last Admin: 11/04/16 21:30 Dose: 6.25 mg Clonidine HCl (Catapres) 0.3 mg PO 0600,1400,2200 [facility] Last Admin: 11/05/16 06:27 Dose: 0.3 mg Collagenase (Santyl) 0 gm TOP DAILY [facility] Last Admin: 11/04/16 10:01 Dose: 1 gm Escitalopram Oxalate (Lexapro) 10 mg PO DAILY [facility] Last Admin: 11/04/16 10:00 Dose: 10 mg Gabapentin (Neurontin) 100 mg PO BID [facility] PRN Reason: Protocol Last Admin: 11/04/16 17:17 Dose: 100 mg Hydralazine HCl (Apresoline) 100 mg PO Q8H [facility] Last Admin: 11/05/16 02:59 Dose: 100 mg Hydralazine HCl (Apresoline) 10 mg IVP Q6 PRN PRN Reason: Systolic Blood Pressure Last Admin: 11/05/16 00:33 Dose: 10 mg Linezolid (Zyvox 600mg/300ml D5w) 600 mg in 300 mls @ 200 mls/hr IVPB Q12 [facility] PRN Reason: Protocol Stop: 11/09/16 22:01 Last Admin: 11/04/16 21:30 Dose: 200 mls/hr Piperacillin Sod/Tazobactam Sod (Zosyn 3.375 In Ns 100ml) 100 mls @ 200 mls/hr IVPB Q8H [facility] PRN Reason: Protocol Stop: 11/10/16 08:14 Insulin Human Regular (Humulin R High) 0 units SC ACHS [facility] PRN Reason: Protocol Last Admin: 11/05/16 07:46 Dose: Not Given Lisinopril (Zestril) 80 mg PO DAILY [facility] Last Admin: 11/04/16 09:58 Dose: 80 mg Morphine Sulfate (Morphine) 2 mg IVP Q4H PRN PRN Reason: Pain, severe (8-10) Multivitamins (Thera Tab) 1 tab PO 0800 [facility] Last Admin: 11/05/16 07:46 Dose: 1 tab Nystatin (Nystop Topical Powder) 0 gm TOP BID [facility] Last Admin: 11/04/16 17:42 Dose: 1 gm Oxycodone HCl (Oxycodone Immediate Release Tab) 15 mg PO QID [facility] Last Admin: 11/04/16 21:30 Dose: 15 mg Pantoprazole Sodium (Protonix Ec Tab) 40 mg PO ACB [facility] Last Admin: 11/05/16 07:46 Dose: 40 mg Primidone (Mysoline) 50 mg PO DAILY [facility] Last Admin: 11/04/16 10:00 Dose: 50 mg Sertraline HCl (Zoloft) 25 mg PO HS [facility] Last Admin: 11/04/16 21:30 Dose: 25 mg Sevelamer HCl (Renagel) 800 mg PO WM [facility] Last Admin: 11/05/16 07:46 Dose: 800 mg Warfarin Sodium (Coumadin) 4 mg PO 1800 [facility] Last Admin: 11/04/16 17:17 Dose: 4 mg Zinc Sulfate (Zinc Sulfate 220 Mg Cap) 220 mg PO DAILY [facility] Last Admin: 11/04/16 09:45 Dose: 220 mg - Labs Labs: 11/05/16 07:00 11/04/16 07:15 PT 34.8 Seconds (9.9-11.8) H* 11/05/16 07:00 INR 3.22 (0.93-1.08) H 11/05/16 07:00 APTT 48.3 Seconds (23.7-30.8) H 11/02/16 16:39 - Constitutional Appears: Well - Head Exam Head Exam: ATRAUMATIC, NORMAL INSPECTION, NORMOCEPHALIC - ENT Exam ENT Exam: Mucous Membranes Moist, Normal Exam - Respiratory Exam Respiratory Exam: Clear to Ausculation Bilateral, NORMAL BREATHING PATTERN - Cardiovascular Exam Cardiovascular Exam: REGULAR RHYTHM, +S1, +S2 - GI/Abdominal Exam GI & Abdominal Exam: Soft, Normal Bowel Sounds - Extremities Exam Additional comments: R BKA, anterior aspect of knee with ulcerated wound-optifoam in place; Left heel with ulcerated wound- optimfoam - Neurological Exam Neurological Exam: Alert, Awake, Oriented x3 - Skin Skin Exam: Normal Color, Warm Additional comments: knee with ulcer; left heel with ulcer-optifoam covering all ulcers in place Assessment and Plan - Assessment and Plan (Free Text) Plan: 1. 66 year old female with ulcerated wounds; anterior R knee, left heel, sacrum - No surgical intervention at this time - Continue with santyl applied dressings and optifoam - Debridement may not be needed. Will monitor progress with santyl for 2-3 days then make a decision on debridement - Continue with wound care, air mattress, turnings q2H, multipodus boots - All other management as per primary team Will follow recs as per Dr. Sammy Ramos D.O. PGY1
--- NOTE | 2016-11-05 08:22 | RAD ---
PROCEDURE: Left Foot Radiographs. HISTORY: left heel ulcer COMPARISON: None. FINDINGS: BONES: There is bony demineralization. There is no bony destruction to suggest osteomyelitis. Previous amputation of the big toe JOINTS: Normal. SOFT TISSUES: Normal. OTHER FINDINGS: None. IMPRESSION: No evidence of osteomyelitis
--- NOTE | 2016-11-05 08:28 | CON ---
DATE: 11/04/2016 HISTORY OF PRESENT ILLNESS: This is a 66-year-old female, who is coming in to the hospital with the past medical history of end-stage renal disease, on hemodialysis Friday, , and Friday, coronary artery disease, diabetes type 2, and antiphospholipid syndrome. The patient has been having pain in the lower part of her back. She was found to have a sacral pressure ulcer. There was drainage. The [facility] had [facility] and was [facility] to [facility]. I have been asked to follow the patient for her dialysis treatment. Her last treatment was on Friday and that is going to continue. The patient was noted to have a blood pressure that was significantly elevated in the 200. She does have a history of high blood pressure, secondary to noncompliance with allowing fluid removal. She did have low-grade fever when she came in. She had no nausea. She was not able to walk that well, she is mostly using a wheelchair. She denies any headaches, any chest pain, any new weakness in the arms or the legs. REVIEW OF SYSTEMS: All the review of systems are within normal limits except what is mentioned. PAST MEDICAL HISTORY: 1. . 2. End-stage renal disease, on hemodialysis Friday, , and Friday. 3. DVT/antiphospholipid antibodies, on Coumadin. 4. Coronary artery disease with stenting. 5. Hypertension. 6. Parkinson's. 7. Noncompliance. 8. Diabetes type 2. 9. Diverticulosis. 10. Peripheral arterial disease. 11. GERD. 12. Thromboembolism, history of the liver and kidney, on Coumadin. 13. Left arm fistula. 14. Left renal cyst. PAST SURGICAL HISTORY: 1. Left leg femoral bypass. 2. Right BKA. 3. CABG. 4. Left toe amputation. 5. Bilateral cataract. SOCIAL HISTORY: She lives with her daughter. She is a . She does not smoke. FAMILY HISTORY: Noncontributory. HOME MEDICATIONS: Aspirin, Catapres, Primidone, amiodarone, gabapentin, sertraline, sevelamer, Zinc, DuoNeb, Xanax, carvedilol, and oxycodone. PHYSICAL EXAMINATION VITAL SIGNS: Temperature 99.4, pulse is 62, blood pressure is 208/72, respirations 15, and O2 saturation is 97%. Repeat blood pressure is 192/84. GENERAL: The patient lying in bed, uncomfortable, and in no acute distress. HEENT: Atraumatic and normocephalic. Anicteric sclerae. Moist mucosa. [place] conjunctivae. No oral lesions. NECK: No JVD, anterior and posterior adenopathy, thyromegaly, or bruits. CARDIOVASCULAR: S1 and S2 regular. No murmur, rubs, or gallop. LUNGS: Clear to auscultation bilaterally. No wheezes, rales, or rhonchi. ABDOMEN: Bowel sounds are positive. Soft, nontender and nondistended. No hepatosplenomegaly. No rebound and no guarding. EXTREMITIES: No cyanosis, clubbing, or edema. NEUROLOGIC: No facial asymmetry. Tongue is midline. No vulva deviation. Power is 5/5 upper extremity and lower extremity. Sensation intact in upper extremity and lower extremity. PSYCHIATRIC: She is awake, alert and oriented x3. No anxiety or depression. She has normal affect. GENITOURINARY: No CVA tenderness. VASCULAR: 2+ pulses in the carotid pulses and pedal pulses. SKIN: No erythema or nodules SPINE: Shows normal curvature. EXTREMITIES: No cyanosis and clubbing, no edema. In the back, there is a sacral pressure ulcer that is unstagable. On the left heel, there is an ulcer. In the right leg, there is a DKA. On the lower part of the leg, there is an ulceration that is present. LABORATORY DATA: CT of the head shows no acute findings. EKG shows LVH with QTc that is 478, normal sinus rhythm. ASSESSMENT: 1. Sacral pressure ulcer. 2. End-stage renal disease, on hemodialysis Friday, , and Friday. 3. DVT/antiphospholipid antibodies, on Coumadin. 4. Coronary artery disease with stenting. 5. Hypertension. 6. Parkinson's. 7. Noncompliance. 8. Diabetes type 2. 9. Diverticulosis. 10. Peripheral arterial disease. 11. GERD. 12. Thromboembolism, history of the liver and kidney, on Coumadin. 13. Left arm fistula. 14. Left renal cyst. PLAN: Pt going to continue with HD 3x/ week. She will need more fluid removal but she does not allow more fluid to be removed. She will get local wound care. Bebo Eller MD [facility]
[2016-11-05] MEDS: Piperacillin/Tazobact 3.375 gm 100 ML IVPB SCH ×3 (09:01→23:17)
--- NOTE | 2016-11-05 09:38 | CP.PCM.PN ---
Subjective - Date & Time of Evaluation Date of Evaluation: 11/05/16 Time of Evaluation: 08:05 - Subjective Subjective: Comfortable, not in distress, afebrile, still complaining of pain in the sacral area. Objective - Vital Signs/Intake and Output Vital Signs (last 24 hours): Temp Pulse Resp BP Pulse Ox 98.4 F 57 L 20 161/61 H 99 11/05/16 06:00 11/05/16 06:27 11/05/16 06:00 11/05/16 06:27 11/05/16 06:00 Intake and Output: 11/05/16 11/05/16 06:59 18:59 Intake Total 180 Balance 180 - Medications Medications: Current Medications Acetaminophen (Tylenol 325mg Tab) 650 mg PO Q6H PRN PRN Reason: Fever >100.4 F Albuterol/Ipratropium (Duoneb 3 Mg/0.5 Mg (3 Ml) Ud) 3 ml IH [id number] [facility] Last Admin: 11/05/16 07:53 Dose: 3 ml Alprazolam (Xanax) 0.5 mg PO TID [facility] Last Admin: 11/04/16 17:34 Dose: Not Given Amiodarone HCl (Cordarone) 200 mg PO DAILY [facility] Last Admin: 11/04/16 10:00 Dose: 200 mg Amlodipine Besylate (Norvasc) 10 mg PO DAILY [facility] Last Admin: 11/04/16 09:58 Dose: 10 mg Ascorbic Acid (Vitamin C 500 Mg Tab) 500 mg PO DAILY [facility] Last Admin: 11/04/16 09:59 Dose: 500 mg Aspirin (Ecotrin) 81 mg PO DAILY [facility] Last Admin: 11/04/16 10:00 Dose: 81 mg Atorvastatin Calcium (Lipitor) 80 mg PO DIN [facility] Last Admin: 11/04/16 17:17 Dose: 80 mg Carbidopa/Levodopa (Sinemet 10/100) 1 tab PO TID [facility] Last Admin: 11/04/16 17:17 Dose: 1 tab Carvedilol (Coreg) 6.25 mg PO Q12 [facility] Last Admin: 11/04/16 21:30 Dose: 6.25 mg Clonidine HCl (Catapres) 0.3 mg PO 0600,1400,2200 [facility] Last Admin: 11/05/16 06:27 Dose: 0.3 mg Collagenase (Santyl) 0 gm TOP DAILY [facility] Last Admin: 11/04/16 10:01 Dose: 1 gm Escitalopram Oxalate (Lexapro) 10 mg PO DAILY [facility] Last Admin: 11/04/16 10:00 Dose: 10 mg Gabapentin (Neurontin) 100 mg PO BID [facility] PRN Reason: Protocol Last Admin: 11/04/16 17:17 Dose: 100 mg Hydralazine HCl (Apresoline) 100 mg PO Q8H [facility] Last Admin: 11/05/16 02:59 Dose: 100 mg Hydralazine HCl (Apresoline) 10 mg IVP Q6 PRN PRN Reason: Systolic Blood Pressure Last Admin: 11/05/16 00:33 Dose: 10 mg Linezolid (Zyvox 600mg/300ml D5w) 600 mg in 300 mls @ 200 mls/hr IVPB Q12 [facility] PRN Reason: Protocol Stop: 11/09/16 22:01 Last Admin: 11/04/16 21:30 Dose: 200 mls/hr Piperacillin Sod/Tazobactam Sod (Zosyn 3.375 In Ns 100ml) 100 mls @ 200 mls/hr IVPB Q8H [facility] PRN Reason: Protocol Stop: 11/10/16 08:14 Insulin Human Regular (Humulin R High) 0 units SC ACHS [facility] PRN Reason: Protocol Last Admin: 11/05/16 07:46 Dose: Not Given Lisinopril (Zestril) 80 mg PO DAILY [facility] Last Admin: 11/04/16 09:58 Dose: 80 mg Morphine Sulfate (Morphine) 2 mg IVP Q4H PRN PRN Reason: Pain, severe (8-10) Multivitamins (Thera Tab) 1 tab PO 0800 [facility] Last Admin: 11/05/16 07:46 Dose: 1 tab Nystatin (Nystop Topical Powder) 0 gm TOP BID [facility] Last Admin: 11/04/16 17:42 Dose: 1 gm Oxycodone HCl (Oxycodone Immediate Release Tab) 15 mg PO QID [facility] Last Admin: 11/04/16 21:30 Dose: 15 mg Pantoprazole Sodium (Protonix Ec Tab) 40 mg PO ACB [facility] Last Admin: 11/05/16 07:46 Dose: 40 mg Primidone (Mysoline) 50 mg PO DAILY [facility] Last Admin: 11/04/16 10:00 Dose: 50 mg Sertraline HCl (Zoloft) 25 mg PO HS [facility] Last Admin: 11/04/16 21:30 Dose: 25 mg Sevelamer HCl (Renagel) 800 mg PO WM [facility] Last Admin: 11/05/16 07:46 Dose: 800 mg Warfarin Sodium (Coumadin) 4 mg PO 1800 [facility] Last Admin: 11/04/16 17:17 Dose: 4 mg Zinc Sulfate (Zinc Sulfate 220 Mg Cap) 220 mg PO DAILY [facility] Last Admin: 11/04/16 09:45 Dose: 220 mg - Labs Labs: 11/05/16 07:00 11/04/16 07:15 PT 34.8 Seconds (9.9-11.8) H* 11/05/16 07:00 INR 3.22 (0.93-1.08) H 11/05/16 07:00 APTT 48.3 Seconds (23.7-30.8) H 11/02/16 16:39 - Constitutional Appears: Non-toxic, No Acute Distress - Head Exam Head Exam: NORMAL INSPECTION - Neck Exam Neck Exam: absent: Meningismus - Respiratory Exam Respiratory Exam: Decreased Breath Sounds - Cardiovascular Exam Cardiovascular Exam: +S1, +S2 - GI/Abdominal Exam GI & Abdominal Exam: Soft. absent: Tenderness Assessment and Plan - Assessment and Plan (Free Text) Plan: Assessment sacral decubitus ulcer, currently unstageable, R/O infection history of left foot ulcer, which grew E. faecalis, E. coli and Pseudomonas history of acute left occipital lobe infarct history of sepsis due to left sided healthcare-associated pneumonia history of Left heel ulcer with evidence of acute osteomyelitis on bone scan on 07/2016 ESRD on HD CAD S/P CABG chronic CHF DM history of anti-phospholipid antibody syndrome S/P right below the knee amputation Plan continue on Zyvox and Zosyn day 3 based on previous cultures; current wound cx only showing coag neg staph which is probably a contaminant; blood cx negative as well; reviewedSurgery evaluation and plans - conservative therapy only; treatment of sacral ulcer will only be fruitful if there is plan for diverting colostomy - if no plan for this, conservative therapy should be done (ie. local wound care)
[2016-11-05] MEDS: Nystatin 100,000 Units/gm Topical Pow(15 gm) TOP SCH ×2 (12:54→17:59)
[2016-11-05] MEDS: oxyCODONE 15 mg Immediate Release Tab PO SCH ×4 (12:54→21:15)
--- NOTE | 2016-11-05 13:55 | CP.PCM.PN ---
<AdrianEliot Cotton - Last Filed: 11/05/16 13:50> Subjective - Date & Time of Evaluation Date of Evaluation: 11/05/16 Time of Evaluation: 07:30 - Subjective Subjective: Pt S/e bedside. Got HD today. Still having mild pain at decubitus ulcers. Not OTher complaints. Will track mental status Objective - Vital Signs/Intake and Output Vital Signs (last 24 hours): Temp Pulse Resp BP Pulse Ox 98.4 F 56 L 20 161/61 H 99 11/05/16 06:00 11/05/16 10:00 11/05/16 06:00 11/05/16 06:27 11/05/16 06:00 Intake and Output: 11/05/16 11/05/16 06:59 18:59 Intake Total 180 240 Balance 180 240 - Medications Medications: Current Medications Acetaminophen (Tylenol 325mg Tab) 650 mg PO Q6H PRN PRN Reason: Fever >100.4 F Albuterol/Ipratropium (Duoneb 3 Mg/0.5 Mg (3 Ml) Ud) 3 ml IH [id number] [facility] Last Admin: 11/05/16 07:53 Dose: 3 ml Alprazolam (Xanax) 0.5 mg PO TID [facility] Last Admin: 11/05/16 12:55 Dose: Not Given Amiodarone HCl (Cordarone) 200 mg PO DAILY [facility] Last Admin: 11/04/16 10:00 Dose: 200 mg Amlodipine Besylate (Norvasc) 10 mg PO DAILY [facility] Last Admin: 11/04/16 09:58 Dose: 10 mg Ascorbic Acid (Vitamin C 500 Mg Tab) 500 mg PO DAILY [facility] Last Admin: 11/04/16 09:59 Dose: 500 mg Aspirin (Ecotrin) 81 mg PO DAILY [facility] Last Admin: 11/04/16 10:00 Dose: 81 mg Atorvastatin Calcium (Lipitor) 80 mg PO DIN [facility] Last Admin: 11/04/16 17:17 Dose: 80 mg Carbidopa/Levodopa (Sinemet 10/100) 1 tab PO TID [facility] Last Admin: 11/05/16 12:55 Dose: Not Given Carvedilol (Coreg) 6.25 mg PO Q12 [facility] Last Admin: 11/04/16 21:30 Dose: 6.25 mg Clonidine HCl (Catapres) 0.3 mg PO 0600,1400,2200 [facility] Last Admin: 11/05/16 06:27 Dose: 0.3 mg Collagenase (Santyl) 0 gm TOP DAILY [facility] Last Admin: 11/04/16 10:01 Dose: 1 gm Escitalopram Oxalate (Lexapro) 10 mg PO DAILY [facility] Last Admin: 11/04/16 10:00 Dose: 10 mg Gabapentin (Neurontin) 100 mg PO BID [facility] PRN Reason: Protocol Last Admin: 11/05/16 12:48 Dose: Not Given Hydralazine HCl (Apresoline) 100 mg PO Q8H [facility] Last Admin: 11/05/16 12:57 Dose: Not Given Hydralazine HCl (Apresoline) 10 mg IVP Q6 PRN PRN Reason: Systolic Blood Pressure Last Admin: 11/05/16 00:33 Dose: 10 mg Linezolid (Zyvox 600mg/300ml D5w) 600 mg in 300 mls @ 200 mls/hr IVPB Q12 [facility] PRN Reason: Protocol Stop: 11/09/16 22:01 Last Admin: 11/04/16 21:30 Dose: 200 mls/hr Piperacillin Sod/Tazobactam Sod (Zosyn 3.375 In Ns 100ml) 100 mls @ 200 mls/hr IVPB Q8H [facility] PRN Reason: Protocol Stop: 11/10/16 08:14 Last Admin: 11/05/16 09:01 Dose: 200 mls/hr Insulin Human Regular (Humulin R High) 0 units SC ACHS [facility] PRN Reason: Protocol Last Admin: 11/05/16 12:48 Dose: Not Given Lisinopril (Zestril) 80 mg PO DAILY [facility] Last Admin: 11/04/16 09:58 Dose: 80 mg Morphine Sulfate (Morphine) 2 mg IVP Q4H PRN PRN Reason: Pain, severe (8-10) Multivitamins (Thera Tab) 1 tab PO 0800 [facility] Last Admin: 11/05/16 07:46 Dose: 1 tab Nystatin (Nystop Topical Powder) 0 gm TOP BID [facility] Last Admin: 11/05/16 12:54 Dose: Not Given Oxycodone HCl (Oxycodone Immediate Release Tab) 15 mg PO QID [facility] Last Admin: 11/05/16 12:54 Dose: Not Given Pantoprazole Sodium (Protonix Ec Tab) 40 mg PO ACB [facility] Last Admin: 11/05/16 07:46 Dose: 40 mg Primidone (Mysoline) 50 mg PO DAILY [facility] Last Admin: 11/04/16 10:00 Dose: 50 mg Sertraline HCl (Zoloft) 25 mg PO HS [facility] Last Admin: 11/04/16 21:30 Dose: 25 mg Sevelamer HCl (Renagel) 800 mg PO WM [facility] Last Admin: 11/05/16 12:54 Dose: Not Given Warfarin Sodium (Coumadin) 4 mg PO 1800 [facility] Last Admin: 11/04/16 17:17 Dose: 4 mg Zinc Sulfate (Zinc Sulfate 220 Mg Cap) 220 mg PO DAILY [facility] Last Admin: 11/04/16 09:45 Dose: 220 mg - Labs Labs: 11/05/16 07:00 11/05/16 07:00 PT 34.8 Seconds (9.9-11.8) H* 11/05/16 07:00 INR 3.22 (0.93-1.08) H 11/05/16 07:00 APTT 48.3 Seconds (23.7-30.8) H 11/02/16 16:39 - Additional Findings Additional findings: VS as below Constitutional: a&o x 4, nad Head and Neck: neck supple, no jvd, trachea midline, carotid midline, no cervical/head mass Eyes: julio, nonicteric sclera, eom intact ENT: auditory acuity grossly intact, throat not congested, no nasal deformity Cardio: rrr, no m/r/g, no carotid bruit, nml s1, s2 Pulm: no accessory muscle use, equal nml breath sounds bilaterally, ctab Abd: s/nt/nd, nbs x 4 q, no palpable masses Derm: See additional findings Extr: R sided BKA; see additional findings. Neuro: cn II-XII grossly intact, ue and le 5/5 muscle strength bilaterally, no los ue, le bilaterally and core Additional:Sacral Decub ulcer- Unstagable 7x8cm; Right Patella- Stage 3 4x5; Left calcaneous- unstagable 3x3 Assessment and Plan - Assessment and Plan (Free Text) Assessment: This is a 66Y F with PMH ESRD on HD (,, ), CAD s/p CABG, seizures, depression, GERD, CHF, IDDM, Parkinsons, DVTs, antiphospholipid syndrome, and CVA admitted for sacral decubitis ulcer as well as hypertensive urgency. Plan: 1. Hypertensive urgency- improved - Head CT showed no acute findings - Continue Amiodarone, Norvasc, Lisinopril, Hydralazine, Coreg, Clonidine - Clonidine increased to TID - Hydralazine PRN SBP >170 2. Sacral decubitus ulcer- unstageable - afebrile, with mild leukocytosis - Podiatry consulted for LE wounds: continue offloading; C&S done; start collagenase foam dressing daily - Surgery: Wound care, air mattress, frequent turning Optifoam santyl to sacrum , left heel, and right knee ulcers - ID consulted- recs appreciated - Continue Zosyn and Zyvox - Wound cultures: Coag Neg Staph - Zinc, Multivitamin, Vitamin C - Continue Pain control 3. ESRD on HD - will continue HD schedule - got HD today - Continue Renagel - Nephro Consulted- Dr. Eller who she sees as outpt for HD 4. IDDM - ISS - BGM ACHS 5. CAD s/p CABG - lipitor, ASA 6. Antiphospholipid syndrome - Continue Coumadin - INR therapeutic 7. Hx of Depression and anxiety - Continue Xanax and Lexapro 8. Hx of Parkinsons - Continue Primodone and Sinemet - Patient's daughter states she is not at baseline. Urine Cx ordered. IF normal, consider Neuro c/s GI ppx: Protonix DVT ppx: Coumadin Dispo: Patient will be transferred back to rehab facility once medically cleared. Case seen, discussed and reviewed with attending <Wm Aguirre - Last Filed: 11/05/16 16:29> Objective - Vital Signs/Intake and Output Vital Signs (last 24 hours): Temp Pulse Resp BP Pulse Ox 98.4 F 56 L 20 197/69 H 99 11/05/16 06:00 11/05/16 10:00 11/05/16 06:00 11/05/16 14:13 11/05/16 06:00 Intake and Output: 11/05/16 11/05/16 06:59 18:59 Intake Total 180 240 Balance 180 240 - Medications Medications: Current Medications Acetaminophen (Tylenol 325mg Tab) 650 mg PO Q6H PRN PRN Reason: Fever >100.4 F Albuterol/Ipratropium (Duoneb 3 Mg/0.5 Mg (3 Ml) Ud) 3 ml IH [id number] [facility] Last Admin: 11/05/16 14:07 Dose: 3 ml Alprazolam (Xanax) 0.5 mg PO TID [facility] Last Admin: 11/05/16 14:40 Dose: Not Given Amiodarone HCl (Cordarone) 200 mg PO DAILY [facility] Last Admin: 11/05/16 14:13 Dose: 200 mg Amlodipine Besylate (Norvasc) 10 mg PO DAILY [facility] Last Admin: 11/05/16 14:13 Dose: 10 mg Ascorbic Acid (Vitamin C 500 Mg Tab) 500 mg PO DAILY [facility] Last Admin: 11/05/16 14:12 Dose: 500 mg Aspirin (Ecotrin) 81 mg PO DAILY [facility] Last Admin: 11/05/16 14:12 Dose: 81 mg Atorvastatin Calcium (Lipitor) 80 mg PO DIN [facility] Last Admin: 11/04/16 17:17 Dose: 80 mg Carbidopa/Levodopa (Sinemet 10/100) 1 tab PO TID [facility] Last Admin: 11/05/16 14:12 Dose: 1 tab Carvedilol (Coreg) 6.25 mg PO Q12 [facility] Last Admin: 11/05/16 14:12 Dose: 6.25 mg Clonidine HCl (Catapres) 0.3 mg PO 0600,1400,2200 [facility] Last Admin: 11/05/16 14:59 Dose: 0.3 mg Collagenase (Santyl) 0 gm TOP DAILY [facility] Last Admin: 11/05/16 14:18 Dose: 1 gm Escitalopram Oxalate (Lexapro) 10 mg PO DAILY [facility] Last Admin: 11/05/16 14:12 Dose: 10 mg Gabapentin (Neurontin) 100 mg PO BID [facility] PRN Reason: Protocol Last Admin: 11/05/16 12:48 Dose: Not Given Hydralazine HCl (Apresoline) 100 mg PO Q8H [facility] Last Admin: 11/05/16 12:57 Dose: Not Given Hydralazine HCl (Apresoline) 10 mg IVP Q6 PRN PRN Reason: Systolic Blood Pressure Last Admin: 11/05/16 00:33 Dose: 10 mg Linezolid (Zyvox 600mg/300ml D5w) 600 mg in 300 mls @ 200 mls/hr IVPB Q12 [facility] PRN Reason: Protocol Stop: 11/09/16 22:01 Last Admin: 11/05/16 14:11 Dose: 200 mls/hr Piperacillin Sod/Tazobactam Sod (Zosyn 3.375 In Ns 100ml) 100 mls @ 200 mls/hr IVPB Q8H [facility] PRN Reason: Protocol Stop: 11/10/16 08:14 Last Admin: 11/05/16 09:01 Dose: 200 mls/hr Insulin Human Regular (Humulin R High) 0 units SC ACHS [facility] PRN Reason: Protocol Last Admin: 11/05/16 12:48 Dose: Not Given Lisinopril (Zestril) 80 mg PO DAILY [facility] Last Admin: 11/05/16 14:12 Dose: 80 mg Morphine Sulfate (Morphine) 2 mg IVP Q4H PRN PRN Reason: Pain, severe (8-10) Multivitamins (Thera Tab) 1 tab PO 0800 [facility] Last Admin: 11/05/16 07:46 Dose: 1 tab Nystatin (Nystop Topical Powder) 0 gm TOP BID [facility] Last Admin: 11/05/16 12:54 Dose: Not Given Oxycodone HCl (Oxycodone Immediate Release Tab) 15 mg PO QID [facility] Last Admin: 11/05/16 14:12 Dose: 15 mg Pantoprazole Sodium (Protonix Ec Tab) 40 mg PO ACB [facility] Last Admin: 11/05/16 07:46 Dose: 40 mg Primidone (Mysoline) 50 mg PO DAILY [facility] Last Admin: 11/05/16 14:12 Dose: 50 mg Sertraline HCl (Zoloft) 25 mg PO HS [facility] Last Admin: 11/04/16 21:30 Dose: 25 mg Sevelamer HCl (Renagel) 800 mg PO WM [facility] Last Admin: 11/05/16 12:54 Dose: Not Given Warfarin Sodium (Coumadin) 4 mg PO 1800 [facility] Last Admin: 11/04/16 17:17 Dose: 4 mg Zinc Sulfate (Zinc Sulfate 220 Mg Cap) 220 mg PO DAILY [facility] Last Admin: 11/05/16 14:12 Dose: 220 mg - Labs Labs: 11/05/16 07:00 11/05/16 07:00 PT 34.8 Seconds (9.9-11.8) H* 11/05/16 07:00 INR 3.22 (0.93-1.08) H 11/05/16 07:00 APTT 48.3 Seconds (23.7-30.8) H 11/02/16 16:39 Attending/Attestation - Attestation I have personally seen and examined this patient.: Yes I have fully participated in the care of the patient.: Yes I have reviewed all pertinent clinical information, including history, physical exam and plan: Yes Notes (Text): 11/05/16 16:29 Medical record note made by resident after discussion with my input after patient was personally seen and examined by me. I have reviewed the chart and agree that the record accurately reflects my personally performance of the hisory, physical, data review, and decision making for the patient.
[2016-11-05] MEDS: Linezolid 600 mg in D5W 300 ml 600 MG/300 ML BAG IVPB SCH ×2 (14:11→21:15)
[2016-11-05] MEDS: Collagenase 250 Units/gm Ointment(30 gm) TOP SCH (14:18)
--- NOTE | 2016-11-05 14:31 | CP.PCM.PN ---
<Sho Marquez - Last Filed: 11/05/16 15:01> Subjective - Date & Time of Evaluation Date of Evaluation: 11/05/16 Time of Evaluation: 14:31 - Subjective Subjective: 66 year old female seen at bedside with attending, Dr. Gay concerning left heel deep tissue injury and ulcer. Pt is non-verbal at this time, demonstarating altered mental status. No reported acute overnight events. Objective - Vital Signs/Intake and Output Vital Signs (last 24 hours): Temp Pulse Resp BP Pulse Ox 98.4 F 56 L 20 197/69 H 99 11/05/16 06:00 11/05/16 10:00 11/05/16 06:00 11/05/16 14:13 11/05/16 06:00 Intake and Output: 11/05/16 11/05/16 06:59 18:59 Intake Total 180 240 Balance 180 240 - Medications Medications: Current Medications Acetaminophen (Tylenol 325mg Tab) 650 mg PO Q6H PRN PRN Reason: Fever >100.4 F Albuterol/Ipratropium (Duoneb 3 Mg/0.5 Mg (3 Ml) Ud) 3 ml IH [id number] [facility] Last Admin: 11/05/16 14:07 Dose: 3 ml Alprazolam (Xanax) 0.5 mg PO TID [facility] Last Admin: 11/05/16 12:55 Dose: Not Given Amiodarone HCl (Cordarone) 200 mg PO DAILY [facility] Last Admin: 11/05/16 14:13 Dose: 200 mg Amlodipine Besylate (Norvasc) 10 mg PO DAILY [facility] Last Admin: 11/05/16 14:13 Dose: 10 mg Ascorbic Acid (Vitamin C 500 Mg Tab) 500 mg PO DAILY [facility] Last Admin: 11/05/16 14:12 Dose: 500 mg Aspirin (Ecotrin) 81 mg PO DAILY [facility] Last Admin: 11/05/16 14:12 Dose: 81 mg Atorvastatin Calcium (Lipitor) 80 mg PO DIN [facility] Last Admin: 11/04/16 17:17 Dose: 80 mg Carbidopa/Levodopa (Sinemet 10/100) 1 tab PO TID [facility] Last Admin: 11/05/16 14:12 Dose: 1 tab Carvedilol (Coreg) 6.25 mg PO Q12 [facility] Last Admin: 11/05/16 14:12 Dose: 6.25 mg Clonidine HCl (Catapres) 0.3 mg PO 0600,1400,2200 [facility] Last Admin: 11/05/16 06:27 Dose: 0.3 mg Collagenase (Santyl) 0 gm TOP DAILY [facility] Last Admin: 11/05/16 14:18 Dose: 1 gm Escitalopram Oxalate (Lexapro) 10 mg PO DAILY [facility] Last Admin: 11/05/16 14:12 Dose: 10 mg Gabapentin (Neurontin) 100 mg PO BID [facility] PRN Reason: Protocol Last Admin: 11/05/16 12:48 Dose: Not Given Hydralazine HCl (Apresoline) 100 mg PO Q8H [facility] Last Admin: 11/05/16 12:57 Dose: Not Given Hydralazine HCl (Apresoline) 10 mg IVP Q6 PRN PRN Reason: Systolic Blood Pressure Last Admin: 11/05/16 00:33 Dose: 10 mg Linezolid (Zyvox 600mg/300ml D5w) 600 mg in 300 mls @ 200 mls/hr IVPB Q12 [facility] PRN Reason: Protocol Stop: 11/09/16 22:01 Last Admin: 11/05/16 14:11 Dose: 200 mls/hr Piperacillin Sod/Tazobactam Sod (Zosyn 3.375 In Ns 100ml) 100 mls @ 200 mls/hr IVPB Q8H [facility] PRN Reason: Protocol Stop: 11/10/16 08:14 Last Admin: 11/05/16 09:01 Dose: 200 mls/hr Insulin Human Regular (Humulin R High) 0 units SC ACHS [facility] PRN Reason: Protocol Last Admin: 11/05/16 12:48 Dose: Not Given Lisinopril (Zestril) 80 mg PO DAILY [facility] Last Admin: 11/05/16 14:12 Dose: 80 mg Morphine Sulfate (Morphine) 2 mg IVP Q4H PRN PRN Reason: Pain, severe (8-10) Multivitamins (Thera Tab) 1 tab PO 0800 [facility] Last Admin: 11/05/16 07:46 Dose: 1 tab Nystatin (Nystop Topical Powder) 0 gm TOP BID [facility] Last Admin: 11/05/16 12:54 Dose: Not Given Oxycodone HCl (Oxycodone Immediate Release Tab) 15 mg PO QID [facility] Last Admin: 11/05/16 14:12 Dose: 15 mg Pantoprazole Sodium (Protonix Ec Tab) 40 mg PO ACB [facility] Last Admin: 11/05/16 07:46 Dose: 40 mg Primidone (Mysoline) 50 mg PO DAILY [facility] Last Admin: 11/05/16 14:12 Dose: 50 mg Sertraline HCl (Zoloft) 25 mg PO HS [facility] Last Admin: 11/04/16 21:30 Dose: 25 mg Sevelamer HCl (Renagel) 800 mg PO WM [facility] Last Admin: 11/05/16 12:54 Dose: Not Given Warfarin Sodium (Coumadin) 4 mg PO 1800 [facility] Last Admin: 11/04/16 17:17 Dose: 4 mg Zinc Sulfate (Zinc Sulfate 220 Mg Cap) 220 mg PO DAILY [facility] Last Admin: 11/05/16 14:12 Dose: 220 mg - Labs Labs: 11/05/16 07:00 11/05/16 07:00 PT 34.8 Seconds (9.9-11.8) H* 11/05/16 07:00 INR 3.22 (0.93-1.08) H 11/05/16 07:00 APTT 48.3 Seconds (23.7-30.8) H 11/02/16 16:39 - Constitutional Appears: Well, Non-toxic, No Acute Distress - Extremities Exam Additional comments: Dressing clean, dry, and intact to left LLE. RLE is absent due to prior Below knee amputation (BKA). LLE is contracted at knee from femur fracture. Neuro-vascular status grossly diminished to left lower extremity at level of digits. DERM: Ecchymosis and [id number] bulla with open wound base measuring 1.5x1.5x.2 cm tissue is hemorragic. No noted sinus tract to bone. Non-blanchable erythema noted. Mild edema noted no abcess or pus noted moderate drainage on the dressing. - Neurological Exam Neurological Exam: Alert, Awake Assessment and Plan - Assessment and Plan (Free Text) Assessment: 66 year old female with 1) Deep Tissue Injury underlying hemorrhagic Negron Grade 3 ulcer to the left heel Plan: Pt evaluated and treated. Seen with attending. Dr. Gay. Chart, labs, and vitals reviewed. continue offloading left lower extremity in multipodis boot while in bed. Cleansed Left heel with sterile saline. Applied collagenase and foam foam dressing. Continue IV antibiotics as per ID Vascular consult by Dr Carl Morris- pending. Podiatry will continue to follow while inhouse. <Dany Gay - Last Filed: 11/08/16 11:00> Objective - Vital Signs/Intake and Output Vital Signs (last 24 hours): Temp Pulse Resp BP Pulse Ox 98.6 F 69 20 177/53 H 99 11/08/16 08:16 11/08/16 08:59 11/08/16 08:16 11/08/16 08:59 11/08/16 08:16 Intake and Output: 11/08/16 11/08/16 06:59 18:59 Intake Total 60 Balance 60 - Medications Medications: Current Medications Acetaminophen (Tylenol 325mg Tab) 650 mg PO Q6H PRN PRN Reason: Fever >100.4 F Last Admin: 11/08/16 05:32 Dose: 650 mg Albuterol/Ipratropium (Duoneb 3 Mg/0.5 Mg (3 Ml) Ud) 3 ml IH [id number] [facility] Last Admin: 11/08/16 07:59 Dose: 3 ml Alprazolam (Xanax) 0.5 mg PO TID [facility] Last Admin: 11/07/16 15:14 Dose: 0.5 mg Amiodarone HCl (Cordarone) 200 mg PO DAILY [facility] Last Admin: 11/07/16 10:09 Dose: Not Given Amlodipine Besylate (Norvasc) 10 mg PO DAILY [facility] Last Admin: 11/07/16 10:10 Dose: Not Given Ascorbic Acid (Vitamin C 500 Mg Tab) 500 mg PO DAILY [facility] Last Admin: 11/07/16 10:11 Dose: Not Given Aspirin (Ecotrin) 81 mg PO DAILY [facility] Last Admin: 11/07/16 10:10 Dose: Not Given Atorvastatin Calcium (Lipitor) 80 mg PO DIN [facility] Last Admin: 11/06/16 17:10 Dose: 80 mg Calcium Acetate (Phoslo) 667 mg PO WM [facility] Last Admin: 11/07/16 12:00 Dose: Not Given Carbidopa/Levodopa (Sinemet 10/100) 1 tab PO TID [facility] Last Admin: 11/07/16 15:14 Dose: 1 tab Carvedilol (Coreg) 6.25 mg PO Q12 [facility] Last Admin: 11/07/16 23:12 Dose: 6.25 mg Clonidine HCl (Catapres) 0.3 mg PO 0600,1400,2200 [facility] Last Admin: 11/08/16 05:33 Dose: 0.3 mg Collagenase (Santyl) 0 gm TOP DAILY [facility] Last Admin: 11/07/16 10:11 Dose: 1 applic Doxazosin Mesylate (Cardura) 1 mg PO 2200 [facility] Last Admin: 11/07/16 23:11 Dose: 1 mg Escitalopram Oxalate (Lexapro) 10 mg PO DAILY [facility] Last Admin: 11/07/16 10:10 Dose: Not Given Gabapentin (Neurontin) 100 mg PO BID [facility] PRN Reason: Protocol Last Admin: 11/07/16 10:10 Dose: Not Given Hydralazine HCl (Apresoline) 100 mg PO Q8H [facility] Last Admin: 11/08/16 03:22 Dose: 100 mg Hydralazine HCl (Apresoline) 10 mg IVP Q6 PRN PRN Reason: Systolic Blood Pressure Last Admin: 11/08/16 08:03 Dose: 10 mg Linezolid (Zyvox 600mg/300ml D5w) 600 mg in 300 mls @ 200 mls/hr IVPB Q12 [facility] PRN Reason: Protocol Stop: 11/09/16 22:01 Last Admin: 11/07/16 22:18 Dose: 200 mls/hr Piperacillin Sod/Tazobactam Sod (Zosyn 3.375 In Ns 100ml) 100 mls @ 200 mls/hr IVPB Q8H [facility] PRN Reason: Protocol Stop: 11/10/16 08:14 Last Admin: 11/08/16 00:04 Dose: 200 mls/hr Insulin Human Regular (Humulin R High) 0 units SC ACHS [facility] PRN Reason: Protocol Last Admin: 11/08/16 08:10 Dose: 1 units Lisinopril (Zestril) 80 mg PO DAILY [facility] Last Admin: 11/07/16 10:11 Dose: Not Given Multivitamins (Thera Tab) 1 tab PO 0800 [facility] Last Admin: 11/07/16 09:13 Dose: 1 tab Nystatin (Nystop Topical Powder) 0 gm TOP BID [facility] Last Admin: 11/07/16 10:10 Dose: 1 gm Pantoprazole Sodium (Protonix Ec Tab) 40 mg PO ACB [facility] Last Admin: 11/07/16 06:34 Dose: 40 mg Primidone (Mysoline) 50 mg PO DAILY [facility] Last Admin: 11/07/16 10:10 Dose: Not Given Sertraline HCl (Zoloft) 25 mg PO HS [facility] Last Admin: 11/07/16 23:12 Dose: 25 mg Sevelamer HCl (Renagel) 800 mg PO WM [facility] Last Admin: 11/07/16 12:00 Dose: Not Given Warfarin Sodium (Coumadin) 4 mg PO 1800 [facility] PRN Reason: Protocol Zinc Sulfate (Zinc Sulfate 220 Mg Cap) 220 mg PO DAILY [facility] Last Admin: 11/07/16 10:11 Dose: Not Given - Labs Labs: 11/08/16 07:00 11/08/16 07:00 PT 13.2 Seconds (9.9-11.8) H 11/07/16 07:00 INR 1.22 (0.93-1.08) H 11/07/16 07:00 APTT 36.0 Seconds (23.7-30.8) H 11/07/16 07:00 Attending/Attestation - Attestation I have personally seen and examined this patient.: Yes I have fully participated in the care of the patient.: Yes I have reviewed all pertinent clinical information, including history, physical exam and plan: Yes
[2016-11-05] MEDS ORDERED: Phytonadione 10 mg/ml Inj (Adult) SC ONE (17:28)
--- NOTE | 2016-11-06 01:29 | CON ---
DATE: 11/05/2016 TIME: 5:30 p.m. CHIEF COMPLAINT/HISTORY OF PRESENT ILLNESS: Ms. Dickson is a 66-year-old vasculopath, whom I have known for several years. I was asked to see her concerning her nonhealing left heel ulcer and PVD. Ms. Dickson is status post right below-knee amputation approximately 4-5 years ago. She has diabetes and end-stage renal disease. She has documented coronary artery disease, status post CABG. She has a diagnosis of antiphospholipid antibody syndrome with previous DVTs and CVA. Her last lower extremity arteriogram that I reviewed was in 2012. This revealed a prosthetic left femoral-popliteal bypass. There is extensive tibial disease with one vessel runoff via the anterior tibial artery. PHYSICAL EXAMINATION: She has faintly palpable femoral pulses. Her left popliteal pedal pulse is not palpable. She has a full thickness ulceration with ecchymosis on the lateral aspect of the left heel. She states that she has pain in the left foot. ASSESSMENT AND PLAN: I discussed the situation with the patient's sister and the patient. They would like to avoid a left lower extremity amputation if at all possible. Unfortunately, I am not sure this is realistic given her extensive comorbidities. We will schedule a lower extremity arteriogram on her next dialysis day. We will assess the status of her femoral-popliteal bypass and below-knee runoff. If intervention is possible, we will perform it. The situation was also discussed with Dr. Morton. Carl Morris MD MTDR[facility]
[2016-11-06] MEDS: Albuterol-Ipratrop 3 mg / 0.5 (3 ml) UD IH SCH ×4 (03:47→20:01)
--- NOTE | 2016-11-06 07:40 | CP.PCM.PN ---
Subjective - Date & Time of Evaluation Date of Evaluation: 11/06/16 Time of Evaluation: 07:00 - Subjective Subjective: Surgery Progress Note Dr. Christianson 66 year old female patient was examined today at bedside AAO x3, in no acute distress. Patient has no current complaints at this time. Patient denies n/v/d, sob, chest pain, headache. Objective - Vital Signs/Intake and Output Vital Signs (last 24 hours): Temp Pulse Resp BP Pulse Ox 98.4 F 59 L 18 160/55 H 98 11/06/16 00:00 11/06/16 06:00 11/06/16 00:00 11/06/16 05:27 11/06/16 00:00 Intake and Output: 11/06/16 11/06/16 06:59 18:59 Intake Total 40 Balance 40 - Medications Medications: Current Medications Acetaminophen (Tylenol 325mg Tab) 650 mg PO Q6H PRN PRN Reason: Fever >100.4 F Albuterol/Ipratropium (Duoneb 3 Mg/0.5 Mg (3 Ml) Ud) 3 ml IH [id number] [facility] Last Admin: 11/06/16 03:47 Dose: 3 ml Alprazolam (Xanax) 0.5 mg PO TID [facility] Last Admin: 11/05/16 17:43 Dose: 0.5 mg Amiodarone HCl (Cordarone) 200 mg PO DAILY [facility] Last Admin: 11/05/16 14:13 Dose: 200 mg Amlodipine Besylate (Norvasc) 10 mg PO DAILY [facility] Last Admin: 11/05/16 14:13 Dose: 10 mg Ascorbic Acid (Vitamin C 500 Mg Tab) 500 mg PO DAILY [facility] Last Admin: 11/05/16 14:12 Dose: 500 mg Aspirin (Ecotrin) 81 mg PO DAILY [facility] Last Admin: 11/05/16 14:12 Dose: 81 mg Atorvastatin Calcium (Lipitor) 80 mg PO DIN [facility] Last Admin: 11/05/16 16:31 Dose: 80 mg Carbidopa/Levodopa (Sinemet 10/100) 1 tab PO TID [facility] Last Admin: 11/05/16 17:43 Dose: 1 tab Carvedilol (Coreg) 6.25 mg PO Q12 [facility] Last Admin: 11/05/16 21:15 Dose: 6.25 mg Clonidine HCl (Catapres) 0.3 mg PO 0600,1400,2200 [facility] Last Admin: 11/06/16 05:27 Dose: 0.3 mg Collagenase (Santyl) 0 gm TOP DAILY [facility] Last Admin: 11/05/16 14:18 Dose: 1 gm Doxazosin Mesylate (Cardura) 1 mg PO 2200 [facility] Escitalopram Oxalate (Lexapro) 10 mg PO DAILY [facility] Last Admin: 11/05/16 14:12 Dose: 10 mg Gabapentin (Neurontin) 100 mg PO BID [facility] PRN Reason: Protocol Last Admin: 11/05/16 17:43 Dose: 100 mg Hydralazine HCl (Apresoline) 100 mg PO Q8H [facility] Last Admin: 11/06/16 02:13 Dose: 100 mg Hydralazine HCl (Apresoline) 10 mg IVP Q6 PRN PRN Reason: Systolic Blood Pressure Last Admin: 11/05/16 16:26 Dose: 10 mg Linezolid (Zyvox 600mg/300ml D5w) 600 mg in 300 mls @ 200 mls/hr IVPB Q12 [facility] PRN Reason: Protocol Stop: 11/09/16 22:01 Last Admin: 11/05/16 21:15 Dose: 200 mls/hr Piperacillin Sod/Tazobactam Sod (Zosyn 3.375 In Ns 100ml) 100 mls @ 200 mls/hr IVPB Q8H [facility] PRN Reason: Protocol Stop: 11/10/16 08:14 Last Admin: 11/05/16 23:17 Dose: 200 mls/hr Insulin Human Regular (Humulin R High) 0 units SC ACHS [facility] PRN Reason: Protocol Last Admin: 11/05/16 21:25 Dose: Not Given Lisinopril (Zestril) 80 mg PO DAILY [facility] Last Admin: 11/05/16 14:12 Dose: 80 mg Morphine Sulfate (Morphine) 2 mg IVP Q4H PRN PRN Reason: Pain, severe (8-10) Multivitamins (Thera Tab) 1 tab PO 0800 [facility] Last Admin: 11/05/16 07:46 Dose: 1 tab Nystatin (Nystop Topical Powder) 0 gm TOP BID [facility] Last Admin: 11/05/16 17:59 Dose: 1 gm Oxycodone HCl (Oxycodone Immediate Release Tab) 15 mg PO QID [facility] Last Admin: 11/05/16 21:15 Dose: 15 mg Pantoprazole Sodium (Protonix Ec Tab) 40 mg PO ACB [facility] Last Admin: 11/05/16 07:46 Dose: 40 mg Phytonadione (Vitamin K Inj) 10 mg SC ONCE ONE Stop: 11/06/16 12:01 Primidone (Mysoline) 50 mg PO DAILY [facility] Last Admin: 11/05/16 14:12 Dose: 50 mg Sertraline HCl (Zoloft) 25 mg PO HS [facility] Last Admin: 11/05/16 21:15 Dose: 25 mg Sevelamer HCl (Renagel) 800 mg PO WM [facility] Last Admin: 11/05/16 16:31 Dose: 800 mg Warfarin Sodium (Coumadin) 4 mg PO 1800 [facility] Last Admin: 11/04/16 17:17 Dose: 4 mg Zinc Sulfate (Zinc Sulfate 220 Mg Cap) 220 mg PO DAILY [facility] Last Admin: 11/05/16 14:12 Dose: 220 mg - Labs Labs: 11/05/16 07:00 11/05/16 07:00 PT 34.8 Seconds (9.9-11.8) H* 11/05/16 07:00 INR 3.22 (0.93-1.08) H 11/05/16 07:00 APTT 48.3 Seconds (23.7-30.8) H 11/02/16 16:39 - Constitutional Appears: Well - Head Exam Head Exam: ATRAUMATIC, NORMAL INSPECTION, NORMOCEPHALIC - Eye Exam Eye Exam: EOMI, Normal appearance - ENT Exam ENT Exam: Mucous Membranes Moist, Normal Exam - Respiratory Exam Respiratory Exam: Clear to Ausculation Bilateral, NORMAL BREATHING PATTERN - Cardiovascular Exam Cardiovascular Exam: RRR, +S1, +S2 - GI/Abdominal Exam GI & Abdominal Exam: Soft, Normal Bowel Sounds - Extremities Exam Additional comments: R BKA, anterior aspect of knee with ulcerated wound-optifoam in place; Left heel with ulcerated wound- optimfoam - Skin Additional comments: knee with ulcer; left heel with ulcer-optifoam covering all ulcers in place, bleeding sacral wound Assessment and Plan - Assessment and Plan (Free Text) Plan: 1. 66 year old female with ulcerated wounds; anterior R knee, left heel, sacrum - No surgical intervention at this time - Ulcerated wounds are debriding well with santyl; continue with santyl applied dressings and optifoam - Continue with wound care, air mattress, turnings q2H, multipodus boot - All other management as per primary team Will follow recs as per Dr. Sammy Ramos D.O. PGY1
[2016-11-06] MEDS: Insulin Reg-HIGH-Coverage SC SCH ×4 (08:11→22:16)
[2016-11-06] MEDS: Piperacillin/Tazobact 3.375 gm 100 ML IVPB SCH ×2 (08:12→15:20)
[2016-11-06] MEDS: Multivitamin Therapeutic Tab PO SCH (08:17)
[2016-11-06] MEDS: Pantoprazole 40 mg EC Tab PO SCH (08:17)
--- NOTE | 2016-11-06 09:42 | CP.PCM.PN ---
<JimmySho - Last Filed: 11/06/16 09:29> Subjective - Date & Time of Evaluation Date of Evaluation: 11/06/16 Time of Evaluation: 08:40 - Subjective Subjective: 66 year old female seen at bedside with attending, Dr. Issa concerning left heel deep tissue injury and ulcer. Pt is non-verbal at this time, demonstrating altered mental status. No reported acute overnight events. Objective - Vital Signs/Intake and Output Vital Signs (last 24 hours): Temp Pulse Resp BP Pulse Ox 98.9 F 59 L 18 160/55 H 98 11/06/16 08:21 11/06/16 08:21 11/06/16 08:21 11/06/16 08:21 11/06/16 08:21 Intake and Output: 11/06/16 11/06/16 06:59 18:59 Intake Total 40 Balance 40 - Medications Medications: Current Medications Acetaminophen (Tylenol 325mg Tab) 650 mg PO Q6H PRN PRN Reason: Fever >100.4 F Albuterol/Ipratropium (Duoneb 3 Mg/0.5 Mg (3 Ml) Ud) 3 ml IH [id number] [facility] Last Admin: 11/06/16 07:52 Dose: 3 ml Alprazolam (Xanax) 0.5 mg PO TID [facility] Last Admin: 11/05/16 17:43 Dose: 0.5 mg Amiodarone HCl (Cordarone) 200 mg PO DAILY [facility] Last Admin: 11/05/16 14:13 Dose: 200 mg Amlodipine Besylate (Norvasc) 10 mg PO DAILY [facility] Last Admin: 11/05/16 14:13 Dose: 10 mg Ascorbic Acid (Vitamin C 500 Mg Tab) 500 mg PO DAILY [facility] Last Admin: 11/05/16 14:12 Dose: 500 mg Aspirin (Ecotrin) 81 mg PO DAILY [facility] Last Admin: 11/05/16 14:12 Dose: 81 mg Atorvastatin Calcium (Lipitor) 80 mg PO DIN [facility] Last Admin: 11/05/16 16:31 Dose: 80 mg Carbidopa/Levodopa (Sinemet 10/100) 1 tab PO TID [facility] Last Admin: 11/05/16 17:43 Dose: 1 tab Carvedilol (Coreg) 6.25 mg PO Q12 [facility] Last Admin: 11/05/16 21:15 Dose: 6.25 mg Clonidine HCl (Catapres) 0.3 mg PO 0600,1400,2200 [facility] Last Admin: 11/06/16 05:27 Dose: 0.3 mg Collagenase (Santyl) 0 gm TOP DAILY [facility] Last Admin: 11/05/16 14:18 Dose: 1 gm Doxazosin Mesylate (Cardura) 1 mg PO 2200 [facility] Escitalopram Oxalate (Lexapro) 10 mg PO DAILY [facility] Last Admin: 11/05/16 14:12 Dose: 10 mg Gabapentin (Neurontin) 100 mg PO BID [facility] PRN Reason: Protocol Last Admin: 11/05/16 17:43 Dose: 100 mg Hydralazine HCl (Apresoline) 100 mg PO Q8H [facility] Last Admin: 11/06/16 02:13 Dose: 100 mg Hydralazine HCl (Apresoline) 10 mg IVP Q6 PRN PRN Reason: Systolic Blood Pressure Last Admin: 11/05/16 16:26 Dose: 10 mg Linezolid (Zyvox 600mg/300ml D5w) 600 mg in 300 mls @ 200 mls/hr IVPB Q12 [facility] PRN Reason: Protocol Stop: 11/09/16 22:01 Last Admin: 11/05/16 21:15 Dose: 200 mls/hr Piperacillin Sod/Tazobactam Sod (Zosyn 3.375 In Ns 100ml) 100 mls @ 200 mls/hr IVPB Q8H [facility] PRN Reason: Protocol Stop: 11/10/16 08:14 Last Admin: 11/06/16 08:12 Dose: 200 mls/hr Insulin Human Regular (Humulin R High) 0 units SC ACHS [facility] PRN Reason: Protocol Last Admin: 11/06/16 08:11 Dose: 2 units Lisinopril (Zestril) 80 mg PO DAILY [facility] Last Admin: 11/05/16 14:12 Dose: 80 mg Morphine Sulfate (Morphine) 2 mg IVP Q4H PRN PRN Reason: Pain, severe (8-10) Multivitamins (Thera Tab) 1 tab PO 0800 [facility] Last Admin: 11/06/16 08:17 Dose: 1 tab Nystatin (Nystop Topical Powder) 0 gm TOP BID [facility] Last Admin: 11/05/16 17:59 Dose: 1 gm Oxycodone HCl (Oxycodone Immediate Release Tab) 15 mg PO QID [facility] Last Admin: 11/05/16 21:15 Dose: 15 mg Pantoprazole Sodium (Protonix Ec Tab) 40 mg PO ACB [facility] Last Admin: 11/06/16 08:17 Dose: 40 mg Phytonadione (Vitamin K Inj) 10 mg SC ONCE ONE Stop: 11/06/16 12:01 Primidone (Mysoline) 50 mg PO DAILY [facility] Last Admin: 11/05/16 14:12 Dose: 50 mg Sertraline HCl (Zoloft) 25 mg PO HS [facility] Last Admin: 11/05/16 21:15 Dose: 25 mg Sevelamer HCl (Renagel) 800 mg PO WM [facility] Last Admin: 11/06/16 08:51 Dose: Not Given Warfarin Sodium (Coumadin) 4 mg PO 1800 [facility] Last Admin: 11/04/16 17:17 Dose: 4 mg Zinc Sulfate (Zinc Sulfate 220 Mg Cap) 220 mg PO DAILY [facility] Last Admin: 11/05/16 14:12 Dose: 220 mg - Labs Labs: 11/05/16 07:00 11/05/16 07:00 PT 34.8 Seconds (9.9-11.8) H* 11/05/16 07:00 INR 3.22 (0.93-1.08) H 11/05/16 07:00 APTT 48.3 Seconds (23.7-30.8) H 11/02/16 16:39 - Constitutional Appears: Well, Non-toxic, No Acute Distress - Extremities Exam Additional comments: Dressing clean, dry, and intact to left LLE. RLE is absent due to prior Below knee amputation (BKA). LLE is contracted at knee from femur fracture. Neuro-vascular status grossly diminished to left lower extremity at level of digits. DERM: Ecchymosis and de-roofed bulla with open wound base measuring 1.5x1.5x.2 cm tissue is hemorragic. No noted sinus tract to bone. Non-blanchable erythema noted. Mild edema noted no abcess or pus noted moderate drainage on the dressing. - Neurological Exam Neurological Exam: Alert, Awake Assessment and Plan - Assessment and Plan (Free Text) Assessment: 66 year old female with 1) Deep Tissue Injury underlying hemorrhagic Negron Grade 2 ulcer to the left heel Plan: Pt evaluated and treated. Seen with attending. Dr. Issa. Chart, labs, and vitals reviewed. continue offloading left lower extremity in multipodis boot while in bed. Cleansed Left heel with sterile saline. Applied Santyl and foam foam dressing. -Wound Culture results: preliminary results=G- rods x2 -Continue IV antibiotics as per ID Vascular consult reviewed- due to extensive vasculopathy, arteriogram to be performed on next dialysis day to asses Fem-pop and below knee runoff. . Podiatry will continue to follow while inhouse. <Elmira Issa - Last Filed: 11/10/16 19:55> Objective - Vital Signs/Intake and Output Vital Signs (last 24 hours): Temp Pulse Resp BP Pulse Ox 98.8 F 56 L 21 185/70 H 99 11/10/16 07:59 11/10/16 18:00 11/10/16 07:59 11/10/16 13:56 11/10/16 07:59 Intake and Output: 11/10/16 11/11/16 18:59 06:59 Intake Total 240 Balance 240 - Medications Medications: Current Medications Acetaminophen (Tylenol 325mg Tab) 650 mg PO Q6H PRN PRN Reason: Fever >100.4 F Last Admin: 11/09/16 17:41 Dose: 650 mg Albuterol/Ipratropium (Duoneb 3 Mg/0.5 Mg (3 Ml) Ud) 3 ml IH [id number] [facility] Last Admin: 11/10/16 13:35 Dose: 3 ml Alprazolam (Xanax) 0.5 mg PO TID [facility] Last Admin: 11/10/16 17:57 Dose: Not Given Amiodarone HCl (Cordarone) 200 mg PO DAILY [facility] Last Admin: 11/10/16 10:19 Dose: 200 mg Amlodipine Besylate (Norvasc) 10 mg PO DAILY [facility] Last Admin: 11/10/16 10:16 Dose: 10 mg Ascorbic Acid (Vitamin C 500 Mg Tab) 500 mg PO DAILY [facility] Last Admin: 11/10/16 10:17 Dose: 500 mg Aspirin (Ecotrin) 81 mg PO DAILY [facility] Last Admin: 11/10/16 10:20 Dose: 81 mg Atorvastatin Calcium (Lipitor) 80 mg PO DIN [facility] Last Admin: 11/10/16 17:54 Dose: 80 mg Calcium Acetate (Phoslo) 667 mg PO WM [facility] Last Admin: 11/10/16 17:54 Dose: 667 mg Carbidopa/Levodopa (Sinemet 10/100) 1 tab PO TID [facility] Last Admin: 11/10/16 17:54 Dose: 1 tab Carvedilol (Coreg) 6.25 mg PO Q12 [facility] Last Admin: 11/10/16 10:18 Dose: 6.25 mg Clonidine HCl (Catapres) 0.3 mg PO 0600,1400,2200 [facility] Last Admin: 11/10/16 13:56 Dose: 0.3 mg Collagenase (Santyl) 0 gm TOP DAILY [facility] Last Admin: 11/10/16 10:22 Dose: 1 applic Doxazosin Mesylate (Cardura) 1 mg PO 2200 [facility] Last Admin: 11/09/16 21:39 Dose: 1 mg Escitalopram Oxalate (Lexapro) 10 mg PO DAILY [facility] Last Admin: 11/10/16 10:19 Dose: 10 mg Gabapentin (Neurontin) 100 mg PO BID [facility] PRN Reason: Protocol Last Admin: 11/10/16 17:54 Dose: 100 mg Hydralazine HCl (Apresoline) 100 mg PO Q8H [facility] Last Admin: 11/10/16 10:20 Dose: 100 mg Hydralazine HCl (Apresoline) 10 mg IVP Q6 PRN PRN Reason: Systolic Blood Pressure Last Admin: 11/10/16 10:25 Dose: 10 mg Insulin Human Regular (Humulin R High) 0 units SC ACHS [facility] PRN Reason: Protocol Last Admin: 11/10/16 17:56 Dose: Not Given Lisinopril (Zestril) 80 mg PO DAILY [facility] Last Admin: 11/10/16 10:18 Dose: 80 mg Multivitamins (Thera Tab) 1 tab PO 0800 [facility] Last Admin: 11/10/16 09:00 Dose: 1 tab Nystatin (Nystop Topical Powder) 0 gm TOP BID [facility] Last Admin: 11/10/16 10:21 Dose: 1 gm Pantoprazole Sodium (Protonix Ec Tab) 40 mg PO ACB [facility] Last Admin: 11/10/16 08:30 Dose: 40 mg Primidone (Mysoline) 50 mg PO DAILY [facility] Last Admin: 11/10/16 10:19 Dose: 50 mg Sertraline HCl (Zoloft) 25 mg PO HS [facility] Last Admin: 11/09/16 21:38 Dose: 25 mg Sevelamer HCl (Renagel) 800 mg PO WM [facility] Last Admin: 11/10/16 17:55 Dose: 800 mg Warfarin Sodium (Coumadin) 4 mg PO 1800 [facility] PRN Reason: Protocol Last Admin: 11/10/16 17:55 Dose: 4 mg Zinc Sulfate (Zinc Sulfate 220 Mg Cap) 220 mg PO DAILY [facility] Last Admin: 11/10/16 10:19 Dose: 220 mg - Labs Labs: 11/10/16 06:00 11/10/16 06:00 PT 13.2 Seconds (9.9-11.8) H 11/07/16 07:00 INR 1.22 (0.93-1.08) H 11/07/16 07:00 APTT 36.0 Seconds (23.7-30.8) H 11/07/16 07:00 Attending/Attestation - Attestation I have personally seen and examined this patient.: Yes I have fully participated in the care of the patient.: Yes
--- NOTE | 2016-11-06 10:01 | PN ---
SUBJECTIVE: The patient has no complaints of any chest pain, shortness of breath or headache. PHYSICAL EXAMINATION VITAL SIGNS: Temperature is 98.4, pulse of 69, blood pressure is 160/55, and respirations 18. GENERAL: The patient is lying in bed, flat, comfortable. HEENT: No oral lesion. Anicteric sclerae. Moist mucosa. NECK: No JVD, adenopathy, or thyromegaly. CARDIOVASCULAR: S1 and S2, regular. No murmurs, rubs, or gallops. LUNGS: Clear to auscultation bilaterally. No wheeze, rales, or rhonchi. ABDOMEN: Bowel sounds are positive, soft, nontender and nondistended. EXTREMITIES: No cyanosis, clubbing or edema. LABORATORY DATA: Creatinine is 5.9. White count of 11.2. ASSESSMENT: 1. End-stage renal disease, on hemodialysis. 2. Secondary hypoparathyroidism. 3. Coronary artery disease. 4. Hypertension. 5. Parkinson. 6. Deep vein thrombosis/antiphospholipid antibody, not on anticoagulation. 7. Diabetes type 2. 8. Peripheral arterial disease. 9. Left renal cyst. 10. Sacral pressure ulcers. 11. Gastroesophageal reflux disease. 12. Chronic anemia. 13. Right below-knee amputation. 14. Hypertension. 15. Left heel ulcer. 16. Resistant hypertension. PLAN: At this time the patient is going to be scheduled for an extremity arteriogram to assess the patient has had several fem-pop bypass below the knee. She does have an extensive history of arterial disease and she is a vasculopath. The patient continues to get dialysis and is comfortable. The patient is being followed by podiatry for the patient's ulcer on the left heel. The patient's Coumadin is on hold. She is on Lexapro for anxiety. She is on Lipitor for dyslipidemia. She is receiving morphine for pain. She is on Neurontin for neuropathy. She is on amlodipine for hypertension. We will add doxazosin in the evening to help with her blood pressure. She has resistant hypertension. Bebo Eller MD
[2016-11-06] MEDS: Linezolid 600 mg in D5W 300 ml 600 MG/300 ML BAG IVPB SCH ×2 (10:16→21:18)
[2016-11-06] MEDS: oxyCODONE 15 mg Immediate Release Tab PO SCH ×4 (10:21→21:16)
[2016-11-06] MEDS: Nystatin 100,000 Units/gm Topical Pow(15 gm) TOP SCH ×2 (10:23→17:21)
[2016-11-06] MEDS: Collagenase 250 Units/gm Ointment(30 gm) TOP SCH (10:23)
[2016-11-06] MEDS ORDERED: Phytonadione 10 mg/ml Inj (Adult) SC ONE (12:00)
[2016-11-06 12:59] LABS: INR 1.89 (0.93-1.08); PARTIAL THROMBOPLASTIN TIME 46.2 Seconds (23.7-30.8); PROTHROMBIN TIME 20.4 Seconds (9.9-11.8)
--- NOTE | 2016-11-06 13:52 | CP.PCM.PN ---
Subjective - Date & Time of Evaluation Date of Evaluation: 11/06/16 Time of Evaluation: 07:50 - Subjective Subjective: Comfortable, not in distress, afebrile. Objective - Vital Signs/Intake and Output Vital Signs (last 24 hours): Temp Pulse Resp BP Pulse Ox 98.9 F 59 L 18 178/63 H 98 11/06/16 08:21 11/06/16 11:45 11/06/16 08:21 11/06/16 11:45 11/06/16 08:21 Intake and Output: 11/06/16 11/06/16 06:59 18:59 Intake Total 40 Balance 40 - Medications Medications: Current Medications Acetaminophen (Tylenol 325mg Tab) 650 mg PO Q6H PRN PRN Reason: Fever >100.4 F Albuterol/Ipratropium (Duoneb 3 Mg/0.5 Mg (3 Ml) Ud) 3 ml IH [id number] [facility] Last Admin: 11/06/16 07:52 Dose: 3 ml Alprazolam (Xanax) 0.5 mg PO TID [facility] Last Admin: 11/06/16 10:20 Dose: 0.5 mg Amiodarone HCl (Cordarone) 200 mg PO DAILY [facility] Last Admin: 11/06/16 10:21 Dose: 200 mg Amlodipine Besylate (Norvasc) 10 mg PO DAILY [facility] Last Admin: 11/06/16 10:20 Dose: 10 mg Ascorbic Acid (Vitamin C 500 Mg Tab) 500 mg PO DAILY [facility] Last Admin: 11/06/16 10:19 Dose: 500 mg Aspirin (Ecotrin) 81 mg PO DAILY [facility] Last Admin: 11/06/16 10:21 Dose: 81 mg Atorvastatin Calcium (Lipitor) 80 mg PO DIN [facility] Last Admin: 11/05/16 16:31 Dose: 80 mg Carbidopa/Levodopa (Sinemet 10/100) 1 tab PO TID [facility] Last Admin: 11/06/16 13:47 Dose: 1 tab Carvedilol (Coreg) 6.25 mg PO Q12 [facility] Last Admin: 11/06/16 10:21 Dose: 6.25 mg Clonidine HCl (Catapres) 0.3 mg PO 0600,1400,2200 [facility] Last Admin: 11/06/16 05:27 Dose: 0.3 mg Collagenase (Santyl) 0 gm TOP DAILY [facility] Last Admin: 11/06/16 10:23 Dose: 1 applic Doxazosin Mesylate (Cardura) 1 mg PO 2200 [facility] Escitalopram Oxalate (Lexapro) 10 mg PO DAILY [facility] Last Admin: 11/06/16 10:20 Dose: 10 mg Gabapentin (Neurontin) 100 mg PO BID [facility] PRN Reason: Protocol Last Admin: 11/06/16 10:20 Dose: 100 mg Hydralazine HCl (Apresoline) 100 mg PO Q8H [facility] Last Admin: 11/06/16 11:04 Dose: 100 mg Hydralazine HCl (Apresoline) 10 mg IVP Q6 PRN PRN Reason: Systolic Blood Pressure Last Admin: 11/06/16 11:45 Dose: 10 mg Linezolid (Zyvox 600mg/300ml D5w) 600 mg in 300 mls @ 200 mls/hr IVPB Q12 [facility] PRN Reason: Protocol Stop: 11/09/16 22:01 Last Admin: 11/06/16 10:16 Dose: 200 mls/hr Piperacillin Sod/Tazobactam Sod (Zosyn 3.375 In Ns 100ml) 100 mls @ 200 mls/hr IVPB Q8H [facility] PRN Reason: Protocol Stop: 11/10/16 08:14 Last Admin: 11/06/16 08:12 Dose: 200 mls/hr Insulin Human Regular (Humulin R High) 0 units SC ACHS [facility] PRN Reason: Protocol Last Admin: 11/06/16 11:57 Dose: 4 units Lisinopril (Zestril) 80 mg PO DAILY [facility] Last Admin: 11/06/16 10:19 Dose: 80 mg Morphine Sulfate (Morphine) 2 mg IVP Q4H PRN PRN Reason: Pain, severe (8-10) Multivitamins (Thera Tab) 1 tab PO 0800 [facility] Last Admin: 11/06/16 08:17 Dose: 1 tab Nystatin (Nystop Topical Powder) 0 gm TOP BID [facility] Last Admin: 11/06/16 10:23 Dose: 1 gm Oxycodone HCl (Oxycodone Immediate Release Tab) 15 mg PO QID [facility] Last Admin: 11/06/16 10:21 Dose: 15 mg Pantoprazole Sodium (Protonix Ec Tab) 40 mg PO ACB [facility] Last Admin: 11/06/16 08:17 Dose: 40 mg Primidone (Mysoline) 50 mg PO DAILY [facility] Last Admin: 11/06/16 10:20 Dose: 50 mg Sertraline HCl (Zoloft) 25 mg PO HS [facility] Last Admin: 11/05/16 21:15 Dose: 25 mg Sevelamer HCl (Renagel) 800 mg PO WM [facility] Last Admin: 11/06/16 12:07 Dose: Not Given Warfarin Sodium (Coumadin) 4 mg PO 1800 [facility] Last Admin: 11/04/16 17:17 Dose: 4 mg Zinc Sulfate (Zinc Sulfate 220 Mg Cap) 220 mg PO DAILY [facility] Last Admin: 11/06/16 10:21 Dose: 220 mg - Labs Labs: 11/05/16 07:00 11/05/16 07:00 PT 20.4 Seconds (9.9-11.8) H 11/06/16 12:30 INR 1.89 (0.93-1.08) H 11/06/16 12:30 APTT 46.2 Seconds (23.7-30.8) H 11/06/16 12:30 - Constitutional Appears: Non-toxic, No Acute Distress - Head Exam Head Exam: NORMAL INSPECTION - ENT Exam ENT Exam: Mucous Membranes Moist - Neck Exam Neck Exam: absent: Meningismus - Respiratory Exam Respiratory Exam: Decreased Breath Sounds - Cardiovascular Exam Cardiovascular Exam: +S1, +S2 - GI/Abdominal Exam GI & Abdominal Exam: Soft. absent: Tenderness Assessment and Plan - Assessment and Plan (Free Text) Plan: Assessment sacral decubitus ulcer, currently unstageable, R/O infection history of left foot ulcer, which grew E. faecalis, E. coli and Pseudomonas history of acute left occipital lobe infarct history of sepsis due to left sided healthcare-associated pneumonia history of Left heel ulcer with evidence of acute osteomyelitis on bone scan on 07/2016 ESRD on HD CAD S/P CABG chronic CHF DM history of anti-phospholipid antibody syndrome S/P right below the knee amputation Plan continue on Zyvox and Zosyn day 4 based on previous cultures; current wound cx only showing coag neg staph which is probably a contaminant; blood cx negative as well; reviewedSurgery evaluation and plans - conservative therapy only; treatment of sacral ulcer will only be fruitful if there is plan for diverting colostomy - if no plan for this, conservative therapy should be done (ie. local wound care) and short course of systemic antibiotics (5-7 days of therapy)
--- NOTE | 2016-11-06 15:15 | CP.PCM.PN ---
Subjective - Date & Time of Evaluation Date of Evaluation: 11/06/16 Time of Evaluation: 07:30 - Subjective Subjective: Pt S/e bedside. Still having mild pain at decubitus ulcers. No Other complaints. Will track mental status and Urine Cx Objective - Vital Signs/Intake and Output Vital Signs (last 24 hours): Temp Pulse Resp BP Pulse Ox 98.9 F 59 L 18 170/60 H 98 11/06/16 08:21 11/06/16 13:54 11/06/16 08:21 11/06/16 13:54 11/06/16 08:21 Intake and Output: 11/06/16 11/06/16 06:59 18:59 Intake Total 40 Balance 40 - Medications Medications: Current Medications Acetaminophen (Tylenol 325mg Tab) 650 mg PO Q6H PRN PRN Reason: Fever >100.4 F Albuterol/Ipratropium (Duoneb 3 Mg/0.5 Mg (3 Ml) Ud) 3 ml IH [id number] [facility] Last Admin: 11/06/16 13:55 Dose: 3 ml Alprazolam (Xanax) 0.5 mg PO TID [facility] Last Admin: 11/06/16 14:33 Dose: Not Given Amiodarone HCl (Cordarone) 200 mg PO DAILY [facility] Last Admin: 11/06/16 10:21 Dose: 200 mg Amlodipine Besylate (Norvasc) 10 mg PO DAILY [facility] Last Admin: 11/06/16 10:20 Dose: 10 mg Ascorbic Acid (Vitamin C 500 Mg Tab) 500 mg PO DAILY [facility] Last Admin: 11/06/16 10:19 Dose: 500 mg Aspirin (Ecotrin) 81 mg PO DAILY [facility] Last Admin: 11/06/16 10:21 Dose: 81 mg Atorvastatin Calcium (Lipitor) 80 mg PO DIN [facility] Last Admin: 11/05/16 16:31 Dose: 80 mg Carbidopa/Levodopa (Sinemet 10/100) 1 tab PO TID [facility] Last Admin: 11/06/16 13:47 Dose: 1 tab Carvedilol (Coreg) 6.25 mg PO Q12 [facility] Last Admin: 11/06/16 10:21 Dose: 6.25 mg Clonidine HCl (Catapres) 0.3 mg PO 0600,1400,2200 [facility] Last Admin: 11/06/16 13:54 Dose: 0.3 mg Collagenase (Santyl) 0 gm TOP DAILY [facility] Last Admin: 11/06/16 10:23 Dose: 1 applic Doxazosin Mesylate (Cardura) 1 mg PO 2200 [facility] Escitalopram Oxalate (Lexapro) 10 mg PO DAILY [facility] Last Admin: 11/06/16 10:20 Dose: 10 mg Gabapentin (Neurontin) 100 mg PO BID [facility] PRN Reason: Protocol Last Admin: 11/06/16 10:20 Dose: 100 mg Hydralazine HCl (Apresoline) 100 mg PO Q8H [facility] Last Admin: 11/06/16 11:04 Dose: 100 mg Hydralazine HCl (Apresoline) 10 mg IVP Q6 PRN PRN Reason: Systolic Blood Pressure Last Admin: 11/06/16 11:45 Dose: 10 mg Linezolid (Zyvox 600mg/300ml D5w) 600 mg in 300 mls @ 200 mls/hr IVPB Q12 [facility] PRN Reason: Protocol Stop: 11/09/16 22:01 Last Admin: 11/06/16 10:16 Dose: 200 mls/hr Piperacillin Sod/Tazobactam Sod (Zosyn 3.375 In Ns 100ml) 100 mls @ 200 mls/hr IVPB Q8H [facility] PRN Reason: Protocol Stop: 11/10/16 08:14 Last Admin: 11/06/16 08:12 Dose: 200 mls/hr Insulin Human Regular (Humulin R High) 0 units SC ACHS [facility] PRN Reason: Protocol Last Admin: 11/06/16 11:57 Dose: 4 units Lisinopril (Zestril) 80 mg PO DAILY [facility] Last Admin: 11/06/16 10:19 Dose: 80 mg Morphine Sulfate (Morphine) 2 mg IVP Q4H PRN PRN Reason: Pain, severe (8-10) Multivitamins (Thera Tab) 1 tab PO 0800 [facility] Last Admin: 11/06/16 08:17 Dose: 1 tab Nystatin (Nystop Topical Powder) 0 gm TOP BID [facility] Last Admin: 11/06/16 10:23 Dose: 1 gm Oxycodone HCl (Oxycodone Immediate Release Tab) 15 mg PO QID [facility] Last Admin: 11/06/16 14:33 Dose: Not Given Pantoprazole Sodium (Protonix Ec Tab) 40 mg PO ACB [facility] Last Admin: 11/06/16 08:17 Dose: 40 mg Primidone (Mysoline) 50 mg PO DAILY [facility] Last Admin: 11/06/16 10:20 Dose: 50 mg Sertraline HCl (Zoloft) 25 mg PO HS [facility] Last Admin: 11/05/16 21:15 Dose: 25 mg Sevelamer HCl (Renagel) 800 mg PO WM [facility] Last Admin: 11/06/16 12:07 Dose: Not Given Warfarin Sodium (Coumadin) 4 mg PO 1800 [facility] Last Admin: 11/04/16 17:17 Dose: 4 mg Zinc Sulfate (Zinc Sulfate 220 Mg Cap) 220 mg PO DAILY [facility] Last Admin: 11/06/16 10:21 Dose: 220 mg - Labs Labs: 11/05/16 07:00 11/05/16 07:00 PT 20.4 Seconds (9.9-11.8) H 11/06/16 12:30 INR 1.89 (0.93-1.08) H 11/06/16 12:30 APTT 46.2 Seconds (23.7-30.8) H 11/06/16 12:30 - Additional Findings Additional findings: VS as below Constitutional: a&o x 4, nad Head and Neck: neck supple, no jvd, trachea midline, carotid midline, no cervical/head mass Eyes: julio, nonicteric sclera, eom intact ENT: auditory acuity grossly intact, throat not congested, no nasal deformity Cardio: rrr, no m/r/g, no carotid bruit, nml s1, s2 Pulm: no accessory muscle use, equal nml breath sounds bilaterally, ctab Abd: s/nt/nd, nbs x 4 q, no palpable masses Derm: See additional findings Extr: R sided BKA; see additional findings. Neuro: cn II-XII grossly intact, ue and le 5/5 muscle strength bilaterally, no los ue, le bilaterally and core Additional:Sacral Decub ulcer- Unstagable 7x8cm; Right Patella- Stage 3 4x5; Left calcaneous- unstagable 3x3 Assessment and Plan - Assessment and Plan (Free Text) Assessment: This is a 66Y F with PMH ESRD on HD (T,, ), CAD s/p CABG, seizures, depression, GERD, CHF, IDDM, Parkinsons, DVTs, antiphospholipid syndrome, and CVA admitted for sacral decubitis ulcer as well as hypertensive urgency. Plan: 1. Hypertensive urgency- improved - Head CT showed no acute findings - Continue Amiodarone, Norvasc, Lisinopril, Hydralazine, Coreg, Clonidine - Clonidine increased to TID - Hydralazine PRN SBP >170 2. Sacral decubitus ulcer- unstageable; Anterior R Knee Ulcer; - Afebrile, mild leukocytosis - Podiatry consulted for LE wounds: continue offloading; C&S done; start collagenase foam dressing daily - Surgery: Wound care, air mattress, frequent turning Optifoam santyl to sacrum , left heel, and right knee ulcers - ID consulted: Tx of sacral ulcer will only be fruitful if there is plan for diverting colostomy - if no plan for this, conservative tx should be done (ie. local wound care) and short course of systemic ABx(5-7 days) - Continue Zosyn and Zyvox - Wound cultures: Coag Neg Staph, likely contaminated according to ID - Zinc, Multivitamin, Vitamin C - Continue Pain control 3. Deep Tissue Injury underlying hemorrhagic Negron Grade 3 ulcer to the left heel - Podiatry: Cleansed Left heel with sterile saline. - Surgery: Keep multipodus boot on; Santyl is debriding well 4. ESRD on HD - Will continue HD schedule - got HD yesterday - Continue Renagel - Nephro Consulted- Dr. Eller who she sees as outpt for HD 5. IDDM - ISS - BGM ACHS 6. CAD s/p CABG - Lipitor, ASA 7. Antiphospholipid syndrome - Continue Coumadin - INR therapeutic 8. Hx of Depression and anxiety - Continue Xanax and Lexapro 9. Hx of Parkinsons - Continue Primodone and Sinemet - Patient's daughter states she is not at baseline. Urine Cx ordered. IF normal, consider Neuro c/s. Urine Cx still pending 11/06 GI ppx: Protonix DVT ppx: Coumadin Dispo: Patient will be transferred back to rehab facility once medically cleared. Case seen, discussed and reviewed with attending
[2016-11-07] MEDS: Piperacillin/Tazobact 3.375 gm 100 ML IVPB SCH ×2 (00:10→06:50)
[2016-11-07] MEDS: Albuterol-Ipratrop 3 mg / 0.5 (3 ml) UD IH SCH ×4 (01:30→19:39)
[2016-11-07] MEDS: Pantoprazole 40 mg EC Tab PO SCH (06:34)
[2016-11-07 07:32] LABS: INR 1.22 (0.93-1.08); PROTHROMBIN TIME 13.2 Seconds (9.9-11.8)
[2016-11-07 07:37] LABS: BASO # 0.04 K/mm3 (0.0-2.0); BASO % 0.3 % (0.0-3.0); EOS # 0.6 (0.0-0.7); EOS % 3.9 % (1.5-5.0); GRAN # 12.32 (1.4-6.5); GRAN % 85.3 % (50.0-68.0); HEMOGLOBIN 9.2 g/dL (12.0-16.0); LYMPH # 0.8 (1.2-3.4); LYMPH % 5.7 % (22.0-35.0); MEAN CELL VOLUME 82.4 fl (80.0-105.0); MEAN CORPUSCULAR HEMOGLOBIN 25.8 pg (25.0-35.0); MEAN CORPUSCULAR HGB CONC 31.3 g/dl (31.0-37.0); MEAN PLATELET VOLUME 10.2 fl (7.0-11.0); MONO # 0.7 (0.1-0.6); MONO % 4.8 % (1.0-6.0); PLATELET COUNT 329 10^3/uL (120.0-450.0); RBC 3.57 10^6/uL (3.5-6.1); RED CELL DISTRIBUTION WIDTH 17.1 % (11.5-14.5); WHITE BLOOD COUNT 14.5 10^3/ul (4.5-11.0)
[2016-11-07 07:45] LABS: ALB/GLOB RATIO 0.8 (1.1-1.8); ALBUMIN 3.2 g/dL (3.0-4.8); CALCIUM 10.2 mg/dL (8.4-10.5)
[2016-11-07] MEDS: Insulin Reg-HIGH-Coverage SC SCH ×3 (08:05→23:02)
[2016-11-07] MEDS: Multivitamin Therapeutic Tab PO SCH (09:13)
[2016-11-07] MEDS: Nystatin 100,000 Units/gm Topical Pow(15 gm) TOP SCH (10:10)
[2016-11-07] MEDS: Collagenase 250 Units/gm Ointment(30 gm) TOP SCH (10:11)
[2016-11-07] MEDS: Linezolid 600 mg in D5W 300 ml 600 MG/300 ML BAG IVPB SCH ×2 (10:12→22:18)
--- NOTE | 2016-11-07 11:26 | PN ---
DATE: 11/07/2016 SUBJECTIVE: The patient has no complaints of any chest pain, no shortness of breath. PHYSICAL EXAMINATION: VITAL SIGNS: Temperature is 98.6, pulse of 69, blood pressure is 174/71, and respirations 20. GENERAL: The patient is lying in bed, flat, comfortable. HEENT: No oral lesion. Anicteric sclerae. Moist mucosa. NECK: No JVD, adenopathy, or thyromegaly. CARDIOVASCULAR: S1 and S2, regular. No murmurs, rubs, or gallops. LUNGS: Clear to auscultation bilaterally. No wheeze, rales, or rhonchi. ABDOMEN: Bowel sounds are positive, soft, nontender and nondistended. EXTREMITIES: No cyanosis, clubbing or edema. LABS: White count of 11.2, hemoglobin 9.0, and creatinine is 5.9. ASSESSMENT: 1. End-stage renal disease, on hemodialysis. 2. Secondary hypoparathyroidism. 3. Sacral pressure ulcer. 4. Left heel ulcer. 5. Hypertension. 6. Parkinson. 7. Deep vein thrombosis/antiphospholipid antibody, on anticoagulation with Coumadin. 8. Peripheral arterial disease. 9. Diabetes type 2. 10. Left renal cyst. 11. Chronic anemia. 12. Right below knee amputation. 13. Resistant hypertension. 14. Noncompliance. PLAN: The patient is currently receiving dialysis, no issues. Now, she is off the linezolid for antibiotics. She is reeving lisinopril maximum dose for her hypertension. She is also on amlodipine for her hypertension. She is on Neurontin for neuropathy. She is on Lipitor for dyslipidemia. The patient had been on Renagel because of the difficulty in swallowing and not being able to crush the medications, it was discontinued. I will start her on PhosLo, although I need to be careful because the patient's calcium is elevated and start and calcium. The hospital does not have liquid Renagel, so I will use PhosLo temporarily, but the patient should be discharged on Renagel when she is stable and able to swallow her medications. Bebo Eller MD
--- NOTE | 2016-11-07 14:35 | CP.PCM.PN ---
Subjective - Date & Time of Evaluation Date of Evaluation: 11/07/16 Time of Evaluation: 08:10 - Subjective Subjective: Comfortable, not in distress, afebrile. Objective - Vital Signs/Intake and Output Vital Signs (last 24 hours): Temp Pulse Resp BP Pulse Ox 99.2 F 66 20 186/70 H 98 11/07/16 08:27 11/07/16 08:27 11/07/16 08:27 11/07/16 08:27 11/07/16 08:27 Intake and Output: 11/07/16 11/07/16 06:59 18:59 Intake Total 420 80 Balance 420 80 - Medications Medications: Current Medications Acetaminophen (Tylenol 325mg Tab) 650 mg PO Q6H PRN PRN Reason: Fever >100.4 F Albuterol/Ipratropium (Duoneb 3 Mg/0.5 Mg (3 Ml) Ud) 3 ml IH [id number] [facility] Last Admin: 11/07/16 13:31 Dose: 3 ml Alprazolam (Xanax) 0.5 mg PO TID [facility] Last Admin: 11/07/16 10:11 Dose: Not Given Amiodarone HCl (Cordarone) 200 mg PO DAILY [facility] Last Admin: 11/07/16 10:09 Dose: Not Given Amlodipine Besylate (Norvasc) 10 mg PO DAILY [facility] Last Admin: 11/07/16 10:10 Dose: Not Given Ascorbic Acid (Vitamin C 500 Mg Tab) 500 mg PO DAILY [facility] Last Admin: 11/07/16 10:11 Dose: Not Given Aspirin (Ecotrin) 81 mg PO DAILY [facility] Last Admin: 11/07/16 10:10 Dose: Not Given Atorvastatin Calcium (Lipitor) 80 mg PO DIN [facility] Last Admin: 11/06/16 17:10 Dose: 80 mg Calcium Acetate (Phoslo) 667 mg PO WM [facility] Last Admin: 11/07/16 09:13 Dose: 667 mg Carbidopa/Levodopa (Sinemet 10/) 1 tab PO TID [facility] Last Admin: 11/07/16 10:11 Dose: Not Given Carvedilol (Coreg) 6.25 mg PO Q12 [facility] Last Admin: 11/07/16 10:09 Dose: Not Given Clonidine HCl (Catapres) 0.3 mg PO 0600,1400,2200 [facility] Last Admin: 11/07/16 05:03 Dose: 0.3 mg Collagenase (Santyl) 0 gm TOP DAILY [facility] Last Admin: 11/07/16 10:11 Dose: 1 applic Doxazosin Mesylate (Cardura) 1 mg PO 2200 [facility] Last Admin: 11/06/16 22:46 Dose: 1 mg Escitalopram Oxalate (Lexapro) 10 mg PO DAILY [facility] Last Admin: 11/07/16 10:10 Dose: Not Given Gabapentin (Neurontin) 100 mg PO BID [facility] PRN Reason: Protocol Last Admin: 11/07/16 10:10 Dose: Not Given Hydralazine HCl (Apresoline) 100 mg PO Q8H [facility] Last Admin: 11/07/16 10:09 Dose: Not Given Hydralazine HCl (Apresoline) 10 mg IVP Q6 PRN PRN Reason: Systolic Blood Pressure Last Admin: 11/06/16 18:03 Dose: 10 mg Linezolid (Zyvox 600mg/300ml D5w) 600 mg in 300 mls @ 200 mls/hr IVPB Q12 [facility] PRN Reason: Protocol Stop: 11/09/16 22:01 Last Admin: 11/07/16 10:12 Dose: Not Given Piperacillin Sod/Tazobactam Sod (Zosyn 3.375 In Ns 100ml) 100 mls @ 200 mls/hr IVPB Q8H [facility] PRN Reason: Protocol Stop: 11/10/16 08:14 Last Admin: 11/07/16 06:50 Dose: 200 mls/hr Insulin Human Regular (Humulin R High) 0 units SC ACHS [facility] PRN Reason: Protocol Last Admin: 11/07/16 08:05 Dose: Not Given Lisinopril (Zestril) 80 mg PO DAILY [facility] Last Admin: 11/07/16 10:11 Dose: Not Given Multivitamins (Thera Tab) 1 tab PO 0800 [facility] Last Admin: 11/07/16 09:13 Dose: 1 tab Nystatin (Nystop Topical Powder) 0 gm TOP BID [facility] Last Admin: 11/07/16 10:10 Dose: 1 gm Pantoprazole Sodium (Protonix Ec Tab) 40 mg PO ACB [facility] Last Admin: 11/07/16 06:34 Dose: 40 mg Primidone (Mysoline) 50 mg PO DAILY [facility] Last Admin: 11/07/16 10:10 Dose: Not Given Sertraline HCl (Zoloft) 25 mg PO HS [facility] Last Admin: 11/06/16 21:17 Dose: 25 mg Sevelamer HCl (Renagel) 800 mg PO WM [facility] Last Admin: 11/07/16 09:13 Dose: 800 mg Warfarin Sodium (Coumadin) 4 mg PO 1800 [facility] PRN Reason: Protocol Zinc Sulfate (Zinc Sulfate 220 Mg Cap) 220 mg PO DAILY [facility] Last Admin: 11/07/16 10:11 Dose: Not Given - Labs Labs: 11/07/16 07:00 11/07/16 07:00 PT 13.2 Seconds (9.9-11.8) H 11/07/16 07:00 INR 1.22 (0.93-1.08) H 11/07/16 07:00 APTT 36.0 Seconds (23.7-30.8) H 11/07/16 07:00 - Constitutional Appears: Non-toxic, No Acute Distress - Head Exam Head Exam: NORMAL INSPECTION - ENT Exam ENT Exam: Mucous Membranes Moist - Neck Exam Neck Exam: absent: Meningismus - Respiratory Exam Respiratory Exam: Decreased Breath Sounds - Cardiovascular Exam Cardiovascular Exam: +S1, +S2 - GI/Abdominal Exam GI & Abdominal Exam: Soft. absent: Tenderness Assessment and Plan - Assessment and Plan (Free Text) Plan: Assessment sacral decubitus ulcer, currently unstageable, R/O infection history of left foot ulcer, which grew E. faecalis, E. coli and Pseudomonas history of acute left occipital lobe infarct history of sepsis due to left sided healthcare-associated pneumonia history of Left heel ulcer with evidence of acute osteomyelitis on bone scan on 07/2016 ESRD on HD CAD S/P CABG chronic CHF DM history of anti-phospholipid antibody syndrome S/P right below the knee amputation Plan continue on Zyvox and Zosyn day 5 based on previous cultures; current wound cx only showing coag neg staph which is probably a contaminant; blood cx negative as well; reviewed Surgery evaluation and plans - conservative therapy only; treatment of sacral ulcer will only be fruitful if there is plan for diverting colostomy - if no plan for this, conservative therapy should be done (ie. local wound care) and short course of systemic antibiotics (5-7 days of therapy)
[2016-11-07] MEDS ORDERED: Lidocaine 2% Inj (20ml) ONE (15:43)
[2016-11-07] MEDS ORDERED: Iodixanol 320 MG/ML 200 ML BOTTLE IV ONE (15:43)
[2016-11-07] MEDS ORDERED: Iodixanol 320 MG/ML 100 ML BOTTLE IV ONE (15:43)
[2016-11-07] MEDS ORDERED: Nitroglycerin 50mg in D5W 50 MG/250 ML BOTTLE IV ONE (15:43)
[2016-11-07] MEDS ORDERED: Midazolam 2 MG/2 ML VIAL ONE ×2 (16:19→17:22)
--- NOTE | 2016-11-07 18:10 | CP.PCM.PN ---
Subjective - Date & Time of Evaluation Date of Evaluation: 11/07/16 Time of Evaluation: 08:00 - Subjective Subjective: Pt s/e bedside. Patient still seems not to be at baseline. Pt does not voice any complaints. Got HD today Objective - Vital Signs/Intake and Output Vital Signs (last 24 hours): Temp Pulse Resp BP Pulse Ox 100 F H 72 18 197/52 H 98 11/07/16 16:00 11/07/16 16:00 11/07/16 16:00 11/07/16 16:00 11/07/16 08:27 Intake and Output: 11/07/16 11/07/16 06:59 18:59 Intake Total 420 80 Balance 420 80 - Medications Medications: Current Medications Acetaminophen (Tylenol 325mg Tab) 650 mg PO Q6H PRN PRN Reason: Fever >100.4 F Albuterol/Ipratropium (Duoneb 3 Mg/0.5 Mg (3 Ml) Ud) 3 ml IH [id number] [facility] Last Admin: 11/07/16 13:31 Dose: 3 ml Alprazolam (Xanax) 0.5 mg PO TID [facility] Last Admin: 11/07/16 15:14 Dose: 0.5 mg Amiodarone HCl (Cordarone) 200 mg PO DAILY [facility] Last Admin: 11/07/16 10:09 Dose: Not Given Amlodipine Besylate (Norvasc) 10 mg PO DAILY [facility] Last Admin: 11/07/16 10:10 Dose: Not Given Ascorbic Acid (Vitamin C 500 Mg Tab) 500 mg PO DAILY [facility] Last Admin: 11/07/16 10:11 Dose: Not Given Aspirin (Ecotrin) 81 mg PO DAILY [facility] Last Admin: 11/07/16 10:10 Dose: Not Given Atorvastatin Calcium (Lipitor) 80 mg PO DIN [facility] Last Admin: 11/06/16 17:10 Dose: 80 mg Calcium Acetate (Phoslo) 667 mg PO WM [facility] Last Admin: 11/07/16 12:00 Dose: Not Given Carbidopa/Levodopa (Sinemet 10/100) 1 tab PO TID [facility] Last Admin: 11/07/16 15:14 Dose: 1 tab Carvedilol (Coreg) 6.25 mg PO Q12 [facility] Last Admin: 11/07/16 10:09 Dose: Not Given Clonidine HCl (Catapres) 0.3 mg PO 0600,1400,2200 [facility] Last Admin: 11/07/16 15:16 Dose: 0.3 mg Collagenase (Santyl) 0 gm TOP DAILY [facility] Last Admin: 11/07/16 10:11 Dose: 1 applic Doxazosin Mesylate (Cardura) 1 mg PO 2200 [facility] Last Admin: 11/06/16 22:46 Dose: 1 mg Escitalopram Oxalate (Lexapro) 10 mg PO DAILY [facility] Last Admin: 11/07/16 10:10 Dose: Not Given Gabapentin (Neurontin) 100 mg PO BID [facility] PRN Reason: Protocol Last Admin: 11/07/16 10:10 Dose: Not Given Hydralazine HCl (Apresoline) 100 mg PO Q8H [facility] Last Admin: 11/07/16 10:09 Dose: Not Given Hydralazine HCl (Apresoline) 10 mg IVP Q6 PRN PRN Reason: Systolic Blood Pressure Last Admin: 11/06/16 18:03 Dose: 10 mg Linezolid (Zyvox 600mg/300ml D5w) 600 mg in 300 mls @ 200 mls/hr IVPB Q12 [facility] PRN Reason: Protocol Stop: 11/09/16 22:01 Last Admin: 11/07/16 10:12 Dose: Not Given Piperacillin Sod/Tazobactam Sod (Zosyn 3.375 In Ns 100ml) 100 mls @ 200 mls/hr IVPB Q8H [facility] PRN Reason: Protocol Stop: 11/10/16 08:14 Last Admin: 11/07/16 06:50 Dose: 200 mls/hr Insulin Human Regular (Humulin R High) [address] [facility] PRN Reason: Protocol Last Admin: 11/07/16 11:30 Dose: Not Given Lisinopril (Zestril) 80 mg PO DAILY [facility] Last Admin: 11/07/16 10:11 Dose: Not Given Multivitamins (Thera Tab) 1 tab PO 0800 [facility] Last Admin: 11/07/16 09:13 Dose: 1 tab Nystatin (Nystop Topical Powder) 0 gm TOP BID [facility] Last Admin: 11/07/16 10:10 Dose: 1 gm Pantoprazole Sodium (Protonix Ec Tab) 40 mg PO ACB [facility] Last Admin: 11/07/16 06:34 Dose: 40 mg Primidone (Mysoline) 50 mg PO DAILY [facility] Last Admin: 11/07/16 10:10 Dose: Not Given Sertraline HCl (Zoloft) 25 mg PO HS [facility] Last Admin: 11/06/16 21:17 Dose: 25 mg Sevelamer HCl (Renagel) 800 mg PO WM [facility] Last Admin: 11/07/16 12:00 Dose: Not Given Warfarin Sodium (Coumadin) 4 mg PO 1800 [facility] PRN Reason: Protocol Zinc Sulfate (Zinc Sulfate 220 Mg Cap) 220 mg PO DAILY [facility] Last Admin: 11/07/16 10:11 Dose: Not Given - Labs Labs: 11/07/16 07:00 11/07/16 07:00 PT 13.2 Seconds (9.9-11.8) H 11/07/16 07:00 INR 1.22 (0.93-1.08) H 11/07/16 07:00 APTT 36.0 Seconds (23.7-30.8) H 11/07/16 07:00 - Additional Findings Additional findings: Constitutional: a&o x 4, nad Head and Neck: neck supple, no jvd, trachea midline, carotid midline, no cervical/head mass Eyes: julio, nonicteric sclera, eom intact ENT: auditory acuity grossly intact, throat not congested, no nasal deformity Cardio: rrr, no m/r/g, no carotid bruit, nml s1, s2 Pulm: no accessory muscle use, equal nml breath sounds bilaterally, ctab Abd: s/nt/nd, nbs x 4 q, no palpable masses Derm: See additional findings Extr: R sided BKA; see additional findings. Neuro: cn II-XII grossly intact, ue and le 5/5 muscle strength bilaterally, no los ue, le bilaterally and core Additional:Sacral Decub ulcer- Unstagable 7x8cm; Right Patella- Stage 3 4x5; Left calcaneous- unstagable 3x3 Assessment and Plan - Assessment and Plan (Free Text) Assessment: This is a 66Y F with PMH ESRD on HD (,, ), CAD s/p CABG, seizures, depression, GERD, CHF, IDDM, Parkinsons, DVTs, antiphospholipid syndrome, and CVA admitted for sacral decubitis ulcer as well as hypertensive urgency. Plan: 1. Possible AMS - per daughter, patient is not at baseline - Urine Cx ordered, pending - Wound Cx show Pseudomonas, E. Coli, but patient not showing clinical or laboratory signs of sepsis - Neuro C/s 2. Hypertensive urgency- improved - Head CT showed no acute findings - Continue Amiodarone, Norvasc, Lisinopril, Hydralazine, Coreg, Clonidine - Clonidine increased to TID - Hydralazine PRN SBP >170 3. Sacral decubitus ulcer- unstageable; Anterior R Knee Ulcer; - Afebrile, mild leukocytosis - Podiatry consulted for LE wounds: continue offloading; C&S done; start collagenase foam dressing daily - Surgery: Wound care, air mattress, frequent turning Optifoam santyl to sacrum , left heel, and right knee ulcers - ID consulted: Tx of sacral ulcer will only be fruitful if there is plan for diverting colostomy - if no plan for this, conservative tx should be done (ie. local wound care) and short course of systemic ABx(5-7 days) - Continue Zosyn and Zyvox - Wound cultures: Coag Neg Staph, likely contaminated according to ID - Zinc, Multivitamin, Vitamin C - Continue Pain control - Angio performed today to assess whether tissue is becoming necrotic - awaiting report 4. Deep Tissue Injury underlying hemorrhagic Negron Grade 3 ulcer to the left heel - Podiatry: Cleansed Left heel with sterile saline. - Surgery: Keep multipodus boot on; Santyl is debriding well 5. ESRD on HD - Will continue HD schedule - got HD today - Continue Renagel - Nephro Consulted- Dr. Eller who she sees as outpt for HD 6. IDDM - ISS - BGM ACHS 7. CAD s/p CABG - Lipitor, ASA 8. Antiphospholipid syndrome - Continue Coumadin - INR therapeutic 9. Hx of Depression and anxiety - Continue Xanax and Lexapro 10. Hx of Parkinsons - Continue Primodone and Sinemet GI ppx: Protonix DVT ppx: Coumadin Dispo: Patient will be transferred back to rehab facility once medically cleared. Case seen, discussed and reviewed with attending
--- NOTE | 2016-11-07 20:21 | VASCULAR ---
PROCEDURE: 1. Abdominal aortogram and bilateral lower extremity runoff with left selective views. 2. Left anterior tibial artery origin angioplasty HISTORY: Severe peripheral vascular disease. Diabetes. End-stage renal disease. Nonhealing ulcer left foot. PHYSICIAN(S): Carl Morris M.D. TECHNIQUE: The relative risks and indications of the procedure were explained to the patient and her daughter and consent obtained. The patient was placed supine on the arteriogram table and the right groin prepped and draped in the usual sterile fashion. Conscious sedation and monitoring were provided throughout the procedure by a nurse. Via a right common femoral artery approach, a 5 [place] sheath was placed in the right groin. Through the sheath and over a guidewire, a 5 [place] flush catheter was placed in the abdominal aorta at the level of the bifurcation and bilateral oblique DSA abdominal and pelvic arteriograms performed. Overlapping bilateral lower extremity DSA arteriograms were obtained from the inguinal ligaments to the knees. A 5 [place]an catheter was advanced over the bifurcation and placed along left common femoral artery. An overlapping left lower extremity DSA arteriogram was performed. A lateral view of the foot was obtained. 0.035 support wire was placed in the left femoral- popliteal bypass. A 6 [place]an 65 cm sheath was placed in the origin of the left femoral bypass. Heparin 5000 units IV and nitroglycerin in 250 MC G aliquots were given. The critical stenosis at the origin of the anterior tibial artery was crossed with 5 [place]an catheter and angled Glidewire. Exchange is made for a 0.014 support wire. The left anterior tibial artery origin was dilated with 3 mm by 4 cm angioplasty balloon. An excellent angiographic result was obtained. No stent was required. Completion arteriograms were obtained. FINDINGS: Visualize arteries are small and calcified. The terminal abdominal aorta is patent. The aortic bifurcation is patent. The common and external iliac arteries are calcified and patent without radiographically significant stenosis. The internal iliac arteries are patent bilaterally. The right common femoral artery is calcified and patent. The right profunda femoral artery is hypertrophied. The right SFA occludes proximally. The left common femoral artery is calcified patent. The left profunda femoral artery is patent. The [place] left SFA is chronically occluded. The left femoral- bypass is patent. Both anastomoses are widely patent without significant stenosis. The left popliteal artery is calcified but patent without radiographically significant stenosis. There is a critical stenosis at the origin of the left anterior tibial artery. The left anterior tibial artery is the solitary tibial vessels supplying the foot. The left anterior tibial artery is calcified but patent without radiographically significant stenosis. The left dorsalis pedis artery is patent with collaterals. The left posterior tibial and peroneal arteries are occluded. The plantar arch is occluded. There are very few collaterals supplying the left heel. IMPRESSION: 1.Critical stenosis of the left anterior tibial artery origin. 2. Successful angioplasty of the left anterior tibial artery origin with a 3.0 mm balloon. 3. Patent left femoral- popliteal prosthetic bypass graft. 4. 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 There is 1 vessel runoff via the left anterior tibial artery. The left posterior tibial artery and plantar arch are occluded
--- NOTE | 2016-11-07 20:59 | CON ---
NEUROLOGY CONSULT DATE: 11/07/2016 CHIEF COMPLAINT: Transient disorientation and confusion. HISTORY OF PRESENT ILLNESS: This is a 66-year-old woman with past medical history end-stage renal disease, on hemodialysis; history of secondary hyperparathyroidism; sacral pressure ulcers, left; history of hypertension; history of DVT; antiphospholipid syndrome on Coumadin; history of coronary artery disease status post CABG; insulin-dependent diabetes mellitus; history of parkinsonism on primidone and Sinemet per her neurologist who came to the hospital for sacral decubitus ulcers as well as hypertensive urgency. According to the family members, her mental status is not fully her baseline. She still mildly confused at times and disoriented. She follows simple commands. She is on aspirin and Lipitor for stroke prevention and Sinemet 10/100 t.i.d. and primidone 50 mg p.o. at bedtime for parkinsonism. REVIEW OF SYSTEMS: A 14-point review of systems is as per the HPI. PAST MEDICAL HISTORY: End-stage renal dialysis on hemodialysis, Friday, , and Friday; coronary artery disease status post CABG; history of depression; GERD; CHF; insulin-dependent diabetes mellitus; parkinsonism; DVTs; antiphospholipid syndrome on Coumadin; history of old left healthcare-associated pneumonia; history of old left occipital infarct; history of right BKA. ALLERGIES: ALLERGIES TO CIPROFLOXACIN, CLARITHROMYCIN AND PEPPER . FAMILY HISTORY: Noncontributory. SOCIAL HISTORY: No illicit drug use, smoking, or EtOH abuse. PHYSICAL EXAMINATION: GENERAL: The patient is sitting up in bed, in no acute distress. VITAL SIGNS: Temperature 99.2, pulse rate 66, blood pressure 193/52, respiratory rate of 18, oxygen saturation 98% on room air. HEENT: Head is atraumatic and normocephalic. PERRLA. Extraocular muscles intact. NECK: Supple. No JVD. No adenopathy noted. LUNGS: Clear to auscultation. No adventitious sounds. HEART: S1 and S2, normal rate and rhythm. No murmurs, rubs, or gallops. ABDOMEN: Soft, nontender, nondistended. Bowel sounds present. EXTREMITIES: No clubbing, no cyanosis. Peripheral pulses 2+ felt bilaterally except for has a right BKA. NEUROLOGIC: The patient is alert, oriented to person and place, not much to month or year. Recall after 5 minutes is 0 out of 3. Poor attention span, slow thought process. Flat affect. Cranial nerves II through XII intact. Motor exam; moves all extremities equally. She has a right BKA. Sensory exam; Decreased light touch and pinprick up to the calves in the left leg. Decrease proprioception in the upper extremity. Coordination [id number] intact. Gait deferred for now. LABORATORY DATA: WBC is 14.5, hemoglobin 9.2, hematocrit 29.4, platelet count of 329. Sodium is 134, potassium 3.7, chloride 85, carbon dioxide is 25, BUN of 28, creatinine of 5.1, random glucose 154. ASSESSMENT: This is a 66-year-old woman with past medical history of end-stage renal disease on hemodialysis, coronary artery disease, status post coronary artery bypass graft, history of depression, history of old left occipital lobe infarction, history of sepsis secondary to left-sided healthcare-associated pneumonia, history of osteomyelitis on bone scan in 07/2016 at the left heel, and history of right below knee amputation, currently status post coronary artery bypass graft, chronic congestive heart failure, diabetes, phospholipid antiphospholipid syndrome on Coumadin. She was consulted for disorientation and confusion. The patient likely transient confusion state could be secondary to hypertensive urgency, superimposed underling toxic encephalopathy, given that she has elevated leukocytosis with mild episodes of delirium. At this time recommend: 1. Avoid night time interruptions, avoid sedative medications. 2. Continue on Mysoline 50 mg and Sinemet 10/100 p.o. t.i.d. for parkinsonism. 3. Monitor electrolytes to correct accordingly. 4. Workup for underlying elevated leukocytosis. 5. Keep blood pressure between 130 to 140 mmHg. 6. Given that she has risk factors for stroke, we will get an MRI of the brain to assess for any acute intracranial abnormality, so at this time continue current present medical management. Thank you for this consult. Gatito Soriano MD
[2016-11-08] MEDS: Piperacillin/Tazobact 3.375 gm 100 ML IVPB SCH ×3 (00:04→23:32)
[2016-11-08] MEDS: Albuterol-Ipratrop 3 mg / 0.5 (3 ml) UD IH SCH ×4 (01:12→22:59)
[2016-11-08 07:54] LABS: BASO # 0.03 K/mm3 (0.0-2.0); BASO % 0.2 % (0.0-3.0); EOS # 0.1 (0.0-0.7); EOS % 0.8 % (1.5-5.0); GRAN # 11.68 (1.4-6.5); GRAN % 89.4 % (50.0-68.0); HEMOGLOBIN 8.4 g/dL (12.0-16.0); LYMPH # 0.7 (1.2-3.4); MEAN CELL VOLUME 82.3 fl (80.0-105.0); MEAN CORPUSCULAR HEMOGLOBIN 25.2 pg (25.0-35.0); MEAN CORPUSCULAR HGB CONC 30.7 g/dl (31.0-37.0); MEAN PLATELET VOLUME 9.7 fl (7.0-11.0); MONO # 0.6 (0.1-0.6); MONO % 4.6 % (1.0-6.0); PLATELET COUNT 278 10^3/uL (120.0-450.0); RBC 3.33 10^6/uL (3.5-6.1); RED CELL DISTRIBUTION WIDTH 17.2 % (11.5-14.5); WHITE BLOOD COUNT 13.1 10^3/ul (4.5-11.0)
[2016-11-08] MEDS: Insulin Reg-HIGH-Coverage SC SCH ×4 (08:10→22:38)
[2016-11-08 08:11] LABS: ALB/GLOB RATIO 0.8 (1.1-1.8); ALBUMIN 3.1 g/dL (3.0-4.8); CALCIUM 10.3 mg/dL (8.4-10.5); MAGNESIUM 1.9 mg/dL (1.7-2.2)
[2016-11-08] MEDS: Linezolid 600 mg in D5W 300 ml 600 MG/300 ML BAG IVPB SCH ×2 (11:05→21:45)
[2016-11-08] MEDS: Nystatin 100,000 Units/gm Topical Pow(15 gm) TOP SCH ×2 (12:35→17:50)
[2016-11-08] MEDS: Pantoprazole 40 mg EC Tab PO SCH (13:05)
[2016-11-08] MEDS: Multivitamin Therapeutic Tab PO SCH (13:08)
[2016-11-08] MEDS: Collagenase 250 Units/gm Ointment(30 gm) TOP SCH (15:30)
--- NOTE | 2016-11-08 15:36 | CP.PCM.PN ---
Subjective - Date & Time of Evaluation Date of Evaluation: 11/08/16 Time of Evaluation: 08:25 - Subjective Subjective: Comfortable, for procedure today, no fevers overnight. Objective - Vital Signs/Intake and Output Vital Signs (last 24 hours): Temp Pulse Resp BP Pulse Ox 98.6 F 72 20 207/61 H 99 11/08/16 08:16 11/08/16 13:08 11/08/16 08:16 11/08/16 13:08 11/08/16 08:16 Intake and Output: 11/08/16 11/08/16 06:59 18:59 Intake Total 60 Balance 60 - Medications Medications: Current Medications Acetaminophen (Tylenol 325mg Tab) 650 mg PO Q6H PRN PRN Reason: Fever >100.4 F Last Admin: 11/08/16 05:32 Dose: 650 mg Albuterol/Ipratropium (Duoneb 3 Mg/0.5 Mg (3 Ml) Ud) 3 ml IH [id number] [facility] Last Admin: 11/08/16 13:39 Dose: 3 ml Alprazolam (Xanax) 0.5 mg PO TID [facility] Last Admin: 11/08/16 14:15 Dose: Not Given Amiodarone HCl (Cordarone) 200 mg PO DAILY [facility] Last Admin: 11/08/16 13:06 Dose: 200 mg Amlodipine Besylate (Norvasc) 10 mg PO DAILY [facility] Last Admin: 11/08/16 13:07 Dose: 10 mg Ascorbic Acid (Vitamin C 500 Mg Tab) 500 mg PO DAILY [facility] Last Admin: 11/08/16 13:07 Dose: 500 mg Aspirin (Ecotrin) 81 mg PO DAILY [facility] Last Admin: 11/08/16 13:06 Dose: 81 mg Atorvastatin Calcium (Lipitor) 80 mg PO DIN [facility] Last Admin: 11/06/16 17:10 Dose: 80 mg Calcium Acetate (Phoslo) 667 mg PO WM [facility] Last Admin: 11/08/16 13:05 Dose: 667 mg Carbidopa/Levodopa (Sinemet 10/100) 1 tab PO TID [facility] Last Admin: 11/08/16 13:05 Dose: 1 tab Carvedilol (Coreg) 6.25 mg PO Q12 [facility] Last Admin: 11/08/16 11:03 Dose: Not Given Clonidine HCl (Catapres) 0.3 mg PO 0600,1400,2200 [facility] Last Admin: 11/08/16 13:05 Dose: 0.3 mg Collagenase (Santyl) 0 gm TOP DAILY [facility] Last Admin: 11/07/16 10:11 Dose: 1 applic Doxazosin Mesylate (Cardura) 1 mg PO 2200 [facility] Last Admin: 11/07/16 23:11 Dose: 1 mg Escitalopram Oxalate (Lexapro) 10 mg PO DAILY [facility] Last Admin: 11/08/16 13:06 Dose: 10 mg Gabapentin (Neurontin) 100 mg PO BID [facility] PRN Reason: Protocol Last Admin: 11/08/16 11:03 Dose: Not Given Hydralazine HCl (Apresoline) 100 mg PO Q8H [facility] Last Admin: 11/08/16 13:08 Dose: 100 mg Hydralazine HCl (Apresoline) 10 mg IVP Q6 PRN PRN Reason: Systolic Blood Pressure Last Admin: 11/08/16 08:03 Dose: 10 mg Linezolid (Zyvox 600mg/300ml D5w) 600 mg in 300 mls @ 200 mls/hr IVPB Q12 [facility] PRN Reason: Protocol Stop: 11/09/16 22:01 Last Admin: 11/08/16 11:05 Dose: Not Given Piperacillin Sod/Tazobactam Sod (Zosyn 3.375 In Ns 100ml) 100 mls @ 200 mls/hr IVPB Q8H [facility] PRN Reason: Protocol Stop: 11/10/16 08:14 Last Admin: 11/08/16 00:04 Dose: 200 mls/hr Insulin Human Regular (Humulin R High) 0 units SC ACHS [facility] PRN Reason: Protocol Last Admin: 11/08/16 12:34 Dose: Not Given Lisinopril (Zestril) 80 mg PO DAILY [facility] Last Admin: 11/08/16 13:06 Dose: 80 mg Multivitamins (Thera Tab) 1 tab PO 0800 [facility] Last Admin: 11/08/16 13:08 Dose: 1 tab Nystatin (Nystop Topical Powder) 0 gm TOP BID [facility] Last Admin: 11/08/16 12:35 Dose: Not Given Pantoprazole Sodium (Protonix Ec Tab) 40 mg PO ACB [facility] Last Admin: 11/08/16 13:05 Dose: 40 mg Primidone (Mysoline) 50 mg PO DAILY [facility] Last Admin: 11/08/16 13:07 Dose: 50 mg Sertraline HCl (Zoloft) 25 mg PO HS [facility] Last Admin: 11/07/16 23:12 Dose: 25 mg Sevelamer HCl (Renagel) 800 mg PO WM [facility] Last Admin: 11/08/16 13:05 Dose: 800 mg Warfarin Sodium (Coumadin) 4 mg PO 1800 [facility] PRN Reason: Protocol Zinc Sulfate (Zinc Sulfate 220 Mg Cap) 220 mg PO DAILY [facility] Last Admin: 11/08/16 13:05 Dose: 220 mg - Labs Labs: 11/08/16 07:00 11/08/16 07:00 PT 13.2 Seconds (9.9-11.8) H 11/07/16 07:00 INR 1.22 (0.93-1.08) H 11/07/16 07:00 APTT 36.0 Seconds (23.7-30.8) H 11/07/16 07:00 - Constitutional Appears: Non-toxic, No Acute Distress - Head Exam Head Exam: NORMAL INSPECTION - Respiratory Exam Respiratory Exam: Decreased Breath Sounds - Cardiovascular Exam Cardiovascular Exam: +S1, +S2 - GI/Abdominal Exam GI & Abdominal Exam: Soft. absent: Tenderness Assessment and Plan - Assessment and Plan (Free Text) Plan: Assessment sacral decubitus ulcer, currently unstageable, R/O infection peripheral arterial disease history of left foot ulcer, which grew E. faecalis, E. coli and Pseudomonas history of acute left occipital lobe infarct history of sepsis due to left sided healthcare-associated pneumonia history of Left heel ulcer with evidence of acute osteomyelitis on bone scan on 07/2016 ESRD on HD CAD S/P CABG chronic CHF DM history of anti-phospholipid antibody syndrome S/P right below the knee amputation Plan continue on Zyvox and Zosyn day 6 based on previous cultures; current wound cx only showing coag neg staph which is probably a contaminant; blood cx negative as well; reviewed Surgery evaluation and plans - conservative therapy only; treatment of sacral ulcer will only be fruitful if there is plan for diverting colostomy - if no plan for this, conservative therapy should be done (ie. local wound care) and short course of systemic antibiotics (5-7 days of therapy) follow up results of the vascular disease
--- NOTE | 2016-11-08 15:42 | CP.PCM.PN ---
<Vimal Hager - Last Filed: 11/08/16 16:37> Subjective - Date & Time of Evaluation Date of Evaluation: 11/08/16 Time of Evaluation: 15:39 - Subjective Subjective: Progress Note for Dr. Soriano Pt seen and examined at bedside. Pt underwent HD today. No acute events overnight. Pt not responding to commands today, but is alert. Objective - Vital Signs/Intake and Output Vital Signs (last 24 hours): Temp Pulse Resp BP Pulse Ox 98.6 F 72 20 207/61 H 99 11/08/16 08:16 11/08/16 13:08 11/08/16 08:16 11/08/16 13:08 11/08/16 08:16 Intake and Output: 11/08/16 11/08/16 06:59 18:59 Intake Total 60 Balance 60 - Medications Medications: Current Medications Acetaminophen (Tylenol 325mg Tab) 650 mg PO Q6H PRN PRN Reason: Fever >100.4 F Last Admin: 11/08/16 05:32 Dose: 650 mg Albuterol/Ipratropium (Duoneb 3 Mg/0.5 Mg (3 Ml) Ud) 3 ml IH [id number] [facility] Last Admin: 11/08/16 13:39 Dose: 3 ml Alprazolam (Xanax) 0.5 mg PO TID [facility] Last Admin: 11/08/16 14:15 Dose: Not Given Amiodarone HCl (Cordarone) 200 mg PO DAILY [facility] Last Admin: 11/08/16 13:06 Dose: 200 mg Amlodipine Besylate (Norvasc) 10 mg PO DAILY [facility] Last Admin: 11/08/16 13:07 Dose: 10 mg Ascorbic Acid (Vitamin C 500 Mg Tab) 500 mg PO DAILY [facility] Last Admin: 11/08/16 13:07 Dose: 500 mg Aspirin (Ecotrin) 81 mg PO DAILY [facility] Last Admin: 11/08/16 13:06 Dose: 81 mg Atorvastatin Calcium (Lipitor) 80 mg PO DIN [facility] Last Admin: 11/06/16 17:10 Dose: 80 mg Calcium Acetate (Phoslo) 667 mg PO WM [facility] Last Admin: 11/08/16 13:05 Dose: 667 mg Carbidopa/Levodopa (Sinemet 10/100) 1 tab PO TID [facility] Last Admin: 11/08/16 13:05 Dose: 1 tab Carvedilol (Coreg) 6.25 mg PO Q12 [facility] Last Admin: 11/08/16 11:03 Dose: Not Given Clonidine HCl (Catapres) 0.3 mg PO 0600,1400,2200 [facility] Last Admin: 11/08/16 13:05 Dose: 0.3 mg Collagenase (Santyl) 0 gm TOP DAILY [facility] Last Admin: 11/07/16 10:11 Dose: 1 applic Doxazosin Mesylate (Cardura) 1 mg PO 2200 [facility] Last Admin: 11/07/16 23:11 Dose: 1 mg Escitalopram Oxalate (Lexapro) 10 mg PO DAILY [facility] Last Admin: 11/08/16 13:06 Dose: 10 mg Gabapentin (Neurontin) 100 mg PO BID [facility] PRN Reason: Protocol Last Admin: 11/08/16 11:03 Dose: Not Given Hydralazine HCl (Apresoline) 100 mg PO Q8H [facility] Last Admin: 11/08/16 13:08 Dose: 100 mg Hydralazine HCl (Apresoline) 10 mg IVP Q6 PRN PRN Reason: Systolic Blood Pressure Last Admin: 11/08/16 08:03 Dose: 10 mg Linezolid (Zyvox 600mg/300ml D5w) 600 mg in 300 mls @ 200 mls/hr IVPB Q12 [facility] PRN Reason: Protocol Stop: 11/09/16 22:01 Last Admin: 11/08/16 11:05 Dose: Not Given Piperacillin Sod/Tazobactam Sod (Zosyn 3.375 In Ns 100ml) 100 mls @ 200 mls/hr IVPB Q8H [facility] PRN Reason: Protocol Stop: 11/10/16 08:14 Last Admin: 11/08/16 00:04 Dose: 200 mls/hr Insulin Human Regular (Humulin R High) 0 units SC ACHS [facility] PRN Reason: Protocol Last Admin: 11/08/16 12:34 Dose: Not Given Lisinopril (Zestril) 80 mg PO DAILY [facility] Last Admin: 11/08/16 13:06 Dose: 80 mg Multivitamins (Thera Tab) 1 tab PO 0800 [facility] Last Admin: 11/08/16 13:08 Dose: 1 tab Nystatin (Nystop Topical Powder) 0 gm TOP BID [facility] Last Admin: 11/08/16 12:35 Dose: Not Given Pantoprazole Sodium (Protonix Ec Tab) 40 mg PO ACB [facility] Last Admin: 11/08/16 13:05 Dose: 40 mg Primidone (Mysoline) 50 mg PO DAILY [facility] Last Admin: 11/08/16 13:07 Dose: 50 mg Sertraline HCl (Zoloft) 25 mg PO HS [facility] Last Admin: 11/07/16 23:12 Dose: 25 mg Sevelamer HCl (Renagel) 800 mg PO WM [facility] Last Admin: 11/08/16 13:05 Dose: 800 mg Warfarin Sodium (Coumadin) 4 mg PO 1800 [facility] PRN Reason: Protocol Zinc Sulfate (Zinc Sulfate 220 Mg Cap) 220 mg PO DAILY [facility] Last Admin: 11/08/16 13:05 Dose: 220 mg - Labs Labs: 11/08/16 07:00 11/08/16 07:00 PT 13.2 Seconds (9.9-11.8) H 11/07/16 07:00 INR 1.22 (0.93-1.08) H 11/07/16 07:00 APTT 36.0 Seconds (23.7-30.8) H 11/07/16 07:00 - Constitutional Appears: Non-toxic, No Acute Distress - Head Exam Head Exam: ATRAUMATIC, NORMAL INSPECTION, NORMOCEPHALIC - Neck Exam Neck Exam: absent: Lymphadenopathy - Respiratory Exam Respiratory Exam: Clear to Ausculation Bilateral, NORMAL BREATHING PATTERN. absent: Rales, Rhonchi - Cardiovascular Exam Cardiovascular Exam: RRR, +S1, +S2 - GI/Abdominal Exam GI & Abdominal Exam: Soft, Normal Bowel Sounds. absent: Tenderness - Extremities Exam Extremities Exam: absent: Calf Tenderness, Pedal Edema - Neurological Exam Neurological Exam: Alert, Awake Additional comments: Unable to completely assess neurological functions. Pt nonverbal and not following commands. - Skin Skin Exam: Intact, Normal Color, Warm Assessment and Plan - Assessment and Plan (Free Text) Plan: 66 y/o F with PMH of ESRD, CAD s/p CABG, seizures, depression, GERD, CHF, IDDM, Parkinsons, DVTs, antiphospholipid syndrome, and CVA initially admitted for hypertensive emergency in the setting of AMS. Patient's altered state can be secondary to elevated blood pressures or due to toxic encephalopathy. Brain MRI to evaluate for further causes of AMS. Will continue to monitor patient closely. Plan: Brain MRI Goal SBP 130-140 Avoid sedative medications Monitor electrolytes Continue current neurological medications Madan, PGY-2 <Gatito Soriano - Last Filed: 11/08/16 16:43> Objective - Vital Signs/Intake and Output Vital Signs (last 24 hours): Temp Pulse Resp BP Pulse Ox 98.6 F 72 20 207/61 H 99 11/08/16 08:16 11/08/16 13:08 11/08/16 08:16 11/08/16 13:08 11/08/16 08:16 Intake and Output: 11/08/16 11/08/16 06:59 18:59 Intake Total 60 Balance 60 - Medications Medications: Current Medications Acetaminophen (Tylenol 325mg Tab) 650 mg PO Q6H PRN PRN Reason: Fever >100.4 F Last Admin: 11/08/16 05:32 Dose: 650 mg Albuterol/Ipratropium (Duoneb 3 Mg/0.5 Mg (3 Ml) Ud) 3 ml IH [id number] [facility] Last Admin: 11/08/16 13:39 Dose: 3 ml Alprazolam (Xanax) 0.5 mg PO TID [facility] Last Admin: 11/08/16 14:15 Dose: Not Given Amiodarone HCl (Cordarone) 200 mg PO DAILY [facility] Last Admin: 11/08/16 13:06 Dose: 200 mg Amlodipine Besylate (Norvasc) 10 mg PO DAILY [facility] Last Admin: 11/08/16 13:07 Dose: 10 mg Ascorbic Acid (Vitamin C 500 Mg Tab) 500 mg PO DAILY [facility] Last Admin: 11/08/16 13:07 Dose: 500 mg Aspirin (Ecotrin) 81 mg PO DAILY [facility] Last Admin: 11/08/16 13:06 Dose: 81 mg Atorvastatin Calcium (Lipitor) 80 mg PO DIN [facility] Last Admin: 11/06/16 17:10 Dose: 80 mg Calcium Acetate (Phoslo) 667 mg PO WM [facility] Last Admin: 11/08/16 13:05 Dose: 667 mg Carbidopa/Levodopa (Sinemet 10/100) 1 tab PO TID [facility] Last Admin: 11/08/16 13:05 Dose: 1 tab Carvedilol (Coreg) 6.25 mg PO Q12 [facility] Last Admin: 11/08/16 11:03 Dose: Not Given Clonidine HCl (Catapres) 0.3 mg PO 0600,1400,2200 [facility] Last Admin: 11/08/16 13:05 Dose: 0.3 mg Collagenase (Santyl) 0 gm TOP DAILY [facility] Last Admin: 11/08/16 15:30 Dose: 1 applic Doxazosin Mesylate (Cardura) 1 mg PO 2200 [facility] Last Admin: 11/07/16 23:11 Dose: 1 mg Escitalopram Oxalate (Lexapro) 10 mg PO DAILY [facility] Last Admin: 11/08/16 13:06 Dose: 10 mg Gabapentin (Neurontin) 100 mg PO BID [facility] PRN Reason: Protocol Last Admin: 11/08/16 11:03 Dose: Not Given Hydralazine HCl (Apresoline) 100 mg PO Q8H [facility] Last Admin: 11/08/16 13:08 Dose: 100 mg Hydralazine HCl (Apresoline) 10 mg IVP Q6 PRN PRN Reason: Systolic Blood Pressure Last Admin: 11/08/16 08:03 Dose: 10 mg Linezolid (Zyvox 600mg/300ml D5w) 600 mg in 300 mls @ 200 mls/hr IVPB Q12 [facility] PRN Reason: Protocol Stop: 11/09/16 22:01 Last Admin: 11/08/16 11:05 Dose: Not Given Piperacillin Sod/Tazobactam Sod (Zosyn 3.375 In Ns 100ml) 100 mls @ 200 mls/hr IVPB Q8H [facility] PRN Reason: Protocol Stop: 11/10/16 08:14 Last Admin: 11/08/16 15:55 Dose: 200 mls/hr Insulin Human Regular (Humulin R High) 0 units SC ACHS [facility] PRN Reason: Protocol Last Admin: 11/08/16 12:34 Dose: Not Given Lisinopril (Zestril) 80 mg PO DAILY [facility] Last Admin: 11/08/16 13:06 Dose: 80 mg Multivitamins (Thera Tab) 1 tab PO 0800 [facility] Last Admin: 11/08/16 13:08 Dose: 1 tab Nystatin (Nystop Topical Powder) 0 gm TOP BID [facility] Last Admin: 11/08/16 12:35 Dose: Not Given Pantoprazole Sodium (Protonix Ec Tab) 40 mg PO ACB [facility] Last Admin: 11/08/16 13:05 Dose: 40 mg Primidone (Mysoline) 50 mg PO DAILY [facility] Last Admin: 11/08/16 13:07 Dose: 50 mg Sertraline HCl (Zoloft) 25 mg PO HS [facility] Last Admin: 11/07/16 23:12 Dose: 25 mg Sevelamer HCl (Renagel) 800 mg PO WM [facility] Last Admin: 11/08/16 13:05 Dose: 800 mg Warfarin Sodium (Coumadin) 4 mg PO 1800 [facility] PRN Reason: Protocol Zinc Sulfate (Zinc Sulfate 220 Mg Cap) 220 mg PO DAILY [facility] Last Admin: 11/08/16 13:05 Dose: 220 mg - Labs Labs: 11/08/16 07:00 11/08/16 07:00 PT 13.2 Seconds (9.9-11.8) H 11/07/16 07:00 INR 1.22 (0.93-1.08) H 11/07/16 07:00 APTT 36.0 Seconds (23.7-30.8) H 11/07/16 07:00 Attending/Attestation - Attestation I have personally seen and examined this patient.: Yes I have fully participated in the care of the patient.: Yes I have reviewed all pertinent clinical information, including history, physical exam and plan: Yes
--- NOTE | 2016-11-08 19:23 | CP.PCM.PN ---
Subjective - Date & Time of Evaluation Date of Evaluation: 11/08/16 Time of Evaluation: 07:40 - Subjective Subjective: Pt s/e bedside. Patient still seems not to be at baseline. Pt still on prn Hydralazine for elevated BP's. Pt does not voice any complaints. Got HD yesterday. Objective - Vital Signs/Intake and Output Vital Signs (last 24 hours): Temp Pulse Resp BP Pulse Ox 98.8 F 73 19 187/73 H 99 11/08/16 15:02 11/08/16 18:46 11/08/16 15:02 11/08/16 18:46 11/08/16 08:16 - Medications Medications: Current Medications Acetaminophen (Tylenol 325mg Tab) 650 mg PO Q6H PRN PRN Reason: Fever >100.4 F Last Admin: 11/08/16 05:32 Dose: 650 mg Albuterol/Ipratropium (Duoneb 3 Mg/0.5 Mg (3 Ml) Ud) 3 ml IH [id number] [facility] Last Admin: 11/08/16 13:39 Dose: 3 ml Alprazolam (Xanax) 0.5 mg PO TID [facility] Last Admin: 11/08/16 17:49 Dose: Not Given Amiodarone HCl (Cordarone) 200 mg PO DAILY [facility] Last Admin: 11/08/16 13:06 Dose: 200 mg Amlodipine Besylate (Norvasc) 10 mg PO DAILY [facility] Last Admin: 11/08/16 13:07 Dose: 10 mg Ascorbic Acid (Vitamin C 500 Mg Tab) 500 mg PO DAILY [facility] Last Admin: 11/08/16 13:07 Dose: 500 mg Aspirin (Ecotrin) 81 mg PO DAILY [facility] Last Admin: 11/08/16 13:06 Dose: 81 mg Atorvastatin Calcium (Lipitor) 80 mg PO DIN [facility] Last Admin: 11/08/16 17:49 Dose: Not Given Calcium Acetate (Phoslo) 667 mg PO WM [facility] Last Admin: 11/08/16 17:49 Dose: Not Given Carbidopa/Levodopa (Sinemet 10/100) 1 tab PO TID [facility] Last Admin: 11/08/16 17:49 Dose: Not Given Carvedilol (Coreg) 6.25 mg PO Q12 [facility] Last Admin: 11/08/16 11:03 Dose: Not Given Clonidine HCl (Catapres) 0.3 mg PO 0600,1400,2200 [facility] Last Admin: 11/08/16 13:05 Dose: 0.3 mg Collagenase (Santyl) 0 gm TOP DAILY [facility] Last Admin: 11/08/16 15:30 Dose: 1 applic Doxazosin Mesylate (Cardura) 1 mg PO 2200 [facility] Last Admin: 11/07/16 23:11 Dose: 1 mg Escitalopram Oxalate (Lexapro) 10 mg PO DAILY [facility] Last Admin: 11/08/16 13:06 Dose: 10 mg Gabapentin (Neurontin) 100 mg PO BID [facility] PRN Reason: Protocol Last Admin: 11/08/16 17:49 Dose: Not Given Hydralazine HCl (Apresoline) 100 mg PO Q8H [facility] Last Admin: 11/08/16 17:48 Dose: Not Given Hydralazine HCl (Apresoline) 10 mg IVP Q6 PRN PRN Reason: Systolic Blood Pressure Last Admin: 11/08/16 18:46 Dose: 10 mg Linezolid (Zyvox 600mg/300ml D5w) 600 mg in 300 mls @ 200 mls/hr IVPB Q12 [facility] PRN Reason: Protocol Stop: 11/09/16 22:01 Last Admin: 11/08/16 11:05 Dose: Not Given Piperacillin Sod/Tazobactam Sod (Zosyn 3.375 In Ns 100ml) 100 mls @ 200 mls/hr IVPB Q8H [facility] PRN Reason: Protocol Stop: 11/10/16 08:14 Last Admin: 11/08/16 15:55 Dose: 200 mls/hr Insulin Human Regular (Humulin R High) 0 units SC ACHS [facility] PRN Reason: Protocol Last Admin: 11/08/16 17:48 Dose: Not Given Lisinopril (Zestril) 80 mg PO DAILY [facility] Last Admin: 11/08/16 13:06 Dose: 80 mg Multivitamins (Thera Tab) 1 tab PO 0800 [facility] Last Admin: 11/08/16 13:08 Dose: 1 tab Nystatin (Nystop Topical Powder) 0 gm TOP BID [facility] Last Admin: 11/08/16 17:50 Dose: 1 gm Pantoprazole Sodium (Protonix Ec Tab) 40 mg PO ACB [facility] Last Admin: 11/08/16 13:05 Dose: 40 mg Primidone (Mysoline) 50 mg PO DAILY [facility] Last Admin: 11/08/16 13:07 Dose: 50 mg Sertraline HCl (Zoloft) 25 mg PO HS [facility] Last Admin: 11/07/16 23:12 Dose: 25 mg Sevelamer HCl (Renagel) 800 mg PO WM [facility] Last Admin: 11/08/16 17:49 Dose: Not Given Warfarin Sodium (Coumadin) 4 mg PO 1800 [facility] PRN Reason: Protocol Last Admin: 11/08/16 17:48 Dose: Not Given Zinc Sulfate (Zinc Sulfate 220 Mg Cap) 220 mg PO DAILY [facility] Last Admin: 11/08/16 13:05 Dose: 220 mg - Labs Labs: 11/08/16 07:00 11/08/16 07:00 PT 13.2 Seconds (9.9-11.8) H 11/07/16 07:00 INR 1.22 (0.93-1.08) H 11/07/16 07:00 APTT 36.0 Seconds (23.7-30.8) H 11/07/16 07:00 - Additional Findings Additional findings: Constitutional: a&o x 4, nad Head and Neck: neck supple, no jvd, trachea midline, carotid midline, no cervical/head mass Eyes: julio, nonicteric sclera, eom intact ENT: auditory acuity grossly intact, throat not congested, no nasal deformity Cardio: rrr, no m/r/g, no carotid bruit, nml s1, s2 Pulm: no accessory muscle use, equal nml breath sounds bilaterally, ctab Abd: s/nt/nd, nbs x 4 q, no palpable masses Derm: See additional findings Extr: R sided BKA; see additional findings. Neuro: cn II-XII grossly intact, ue and le 5/5 muscle strength bilaterally, no los ue, le bilaterally and core Additional:Sacral Decub ulcer- Unstagable 7x8cm; Right Patella- Stage 3 4x5; Left calcaneous- unstagable 3x3 Assessment and Plan - Assessment and Plan (Free Text) Assessment: This is a 66Y F with PMH ESRD on HD (T,, ), CAD s/p CABG, seizures, depression, GERD, CHF, IDDM, Parkinsons, DVTs, antiphospholipid syndrome, and CVA admitted for sacral decubitis ulcer as well as hypertensive urgency. Plan: 1. Possible AMS - per daughter, patient is not at baseline - Wound Cx show Pseudomonas, E. Coli, but patient not showing clinical or laboratory signs of sepsis - Neuro C/s: Pt's AMS poss 2/2 elevated BPs or due to toxic encephalopathy. Brain MRI to evaluate for further causes of AMS. Plan: Brain MRI, Goal SBP 130-140, Avoid sedative medications, Monitor electrolytes , Continue current neurological medications 2. Hypertensive urgency- improved - Head CT showed no acute findings - Continue Amiodarone, Norvasc, Lisinopril, Hydralazine, Coreg, Clonidine - Clonidine increased to TID - Hydralazine PRN SBP >170 3. Sacral decubitus ulcer- unstageable; Anterior R Knee Ulcer; - Afebrile, mild leukocytosis - Podiatry consulted for LE wounds: continue offloading; C&S done; start collagenase foam dressing daily - Surgery: Wound care, air mattress, frequent turning Optifoam santyl to sacrum , left heel, and right knee ulcers - ID consulted: Tx of sacral ulcer will only be fruitful if there is plan for diverting colostomy - if no plan for this, conservative tx should be done (ie. local wound care) and short course of systemic ABx(5-7 days) - Continue Zosyn and Zyvox - Wound cultures: Coag Neg Staph, likely contaminated according to ID - Zinc, Multivitamin, Vitamin C - Continue Pain control - Angio performed today to assess whether tissue is becoming necrotic - awaiting report 4. Deep Tissue Injury underlying hemorrhagic Negron Grade 3 ulcer to the left heel - Podiatry: Cleansed Left heel with sterile saline. - Surgery: Keep multipodus boot on; Santyl is debriding well 5. ESRD on HD - Will continue HD schedule - got HD today - Continue Renagel - Nephro Consulted- Dr. Eller who she sees as outpt for HD 6. IDDM - ISS - BGM ACHS 7. CAD s/p CABG - Lipitor, ASA 8. Antiphospholipid syndrome - Continue Coumadin - INR therapeutic 9. Hx of Depression and anxiety - Continue Xanax and Lexapro 10. Hx of Parkinsons - Continue Primodone and Sinemet GI ppx: Protonix DVT ppx: Coumadin
[2016-11-09] MEDS: Albuterol-Ipratrop 3 mg / 0.5 (3 ml) UD IH SCH ×4 (02:50→20:02)
[2016-11-09 06:29] LABS: BASO # 0.02 K/mm3 (0.0-2.0); BASO % 0.2 % (0.0-3.0); EOS # 0.2 (0.0-0.7); EOS % 1.6 % (1.5-5.0); GRAN # 11.32 (1.4-6.5); GRAN % 86.1 % (50.0-68.0); HEMOGLOBIN 8.5 g/dL (12.0-16.0); LYMPH # 0.9 (1.2-3.4); LYMPH % 6.9 % (22.0-35.0); MEAN CELL VOLUME 82.1 fl (80.0-105.0); MEAN CORPUSCULAR HEMOGLOBIN 25.4 pg (25.0-35.0); MEAN CORPUSCULAR HGB CONC 30.9 g/dl (31.0-37.0); MEAN PLATELET VOLUME 9.6 fl (7.0-11.0); MONO # 0.7 (0.1-0.6); MONO % 5.2 % (1.0-6.0); PLATELET COUNT 269 10^3/uL (120.0-450.0); RBC 3.35 10^6/uL (3.5-6.1); RED CELL DISTRIBUTION WIDTH 17.1 % (11.5-14.5); WHITE BLOOD COUNT 13.1 10^3/ul (4.5-11.0)
[2016-11-09 06:50] LABS: ALB/GLOB RATIO 0.9 (1.1-1.8); ALBUMIN 3.2 g/dL (3.0-4.8); CALCIUM 10.4 mg/dL (8.4-10.5)
--- NOTE | 2016-11-09 08:01 | PN ---
SUBJECTIVE: A 66-year-old female seen at bedside for continued evaluation and management and pre-ulcerative non-stageable ulcer on her left heel. The patient has been afebrile. PHYSICAL EXAMINATION: VITAL SIGNS: Reveals temperature 98.8, pulse rate of 75, blood pressure of 178/68, respiratory rate of 18. LABORATORY FINDINGS: Reveal white count of 13.1, hemoglobin of 8.4, hematocrit of 27.4, platelet count of 278. Microbiology reports from her left heel reveals E. coli and pseudomonal growth. X-rays were taken of the left heel reveals no radiographic destruction of bone at the calcaneus to suggest the presence of osteomyelitis. OBJECTIVE: There is noted to be a right below-knee amputation, left lower extremity presents with nonpalpable pedal pulses, absent pedal hair growth. Left heel presents with a deep tissue injury and a non-stageable superficial ulceration that measures approximately 1.5 x 1.5 x 0.2 cm. There is noted be moderate amount of drainage, which is serous, there is no purulence that suggest underlying abscess formation, the wound does not probe to tendon or bone. ASSESSMENT: A 66-year-old diabetic female with a non-stageable ulceration to the left heel. PLAN: Wound was cleansed with normal sterile saline. We will apply collagenase in the form of dry sterile dressing daily. We will continue to offload at all times, which is imperative to prevent for the skin breakdown. Dr. Wood's note was read and appreciated. We will continue with IV antibiotics as per infectious disease. The patient will be seen and followup daily. Dany Gay DPM
[2016-11-09] MEDS ORDERED: Potassium Chloride 40 mEq/30 ml LIQ UD PO ONE (08:11)
[2016-11-09] MEDS ORDERED: Potassium Chloride 20 mEq ER Tab PO ONE (08:41)
--- NOTE | 2016-11-09 09:01 | PN ---
DATE: 11/09/2016 SUBJECTIVE: The patient has no complaints of chest pain, no shortness of breath. She says she is weak and tired. PHYSICAL EXAMINATION VITAL SIGNS: Temperature is 98.2, pulse was 60, blood pressure 188/73, respirations 18. GENERAL: The patient is lying in bed, flat, comfortable. HEENT: No oral lesion. Anicteric sclerae. Moist mucosa. NECK: No JVD, adenopathy, or thyromegaly. CARDIOVASCULAR: S1 and S2, regular. No murmurs, rubs, or gallops. LUNGS: Clear to auscultation bilaterally. No wheeze, rales, or rhonchi. ABDOMEN: Bowel sounds are positive, soft, nontender and nondistended. EXTREMITIES: no cyanosis, clubbing or edema. LABS: White count of 13.1, potassium 3.1. Status post arterial angiography. ASSESSMENT: 1. Severe peripheral arterial disease. 2. End-stage renal disease on hemodialysis. 3. Secondary hyperparathyroidism. 4. Sacral pressure ulcer. 5. Left heal ulcer. 6. Hypokalemia. 7. Hypertension. 8. Parkinson's. 9. Deep vein thrombosis/antiphospholipid antibody on anticoagulation with Coumadin. 10. Peripheral arterial disease. 11. Left renal cyst. 12. Chronic anemia. 13. Right below the knee amputation. 14. Resistant hypertension. 15. Noncompliance. PLAN: The patient is currently on hydralazine. He is on Cardura. The patient's blood pressure remains elevated. She is on Lexapro. She is going to continue with Lipitor for dyslipidemia. She is on Neurontin for neuropathy. She is on multiple blood pressure medication. She is on Venogel for her secondary hyperparathyroidism. The patient is on Sinemet for her Parkinson's. She is on Zoloft for her anxiety. She is receiving antibiotics. She has an MRI of the brain that has been ordered. The patient continues to get hemodialysis. Her wounds have been treated locally. Bebo Eller MD
[2016-11-09] MEDS: Piperacillin/Tazobact 3.375 gm 100 ML IVPB SCH ×3 (09:28→22:51)
[2016-11-09] MEDS: Multivitamin Therapeutic Tab PO SCH (09:28)
[2016-11-09] MEDS: Pantoprazole 40 mg EC Tab PO SCH (09:28)
[2016-11-09] MEDS: Insulin Reg-HIGH-Coverage SC SCH ×4 (09:30→21:35)
--- NOTE | 2016-11-09 10:19 | CP.PCM.PN ---
Subjective - Date & Time of Evaluation Date of Evaluation: 11/09/16 Time of Evaluation: 07:45 - Subjective Subjective: PGY2 Medicine note for Dr. Aguirre Patient seen and examined at bedside. No acute events overnight as per nursing. Patient had HD yesterday 11/08. She was AO x2 to self and place this morning and was pleasant. She denied any acute complaints of chest pain, SOB, abdominal pain , pain in her RLE and LUE. Complete ROS unobtainable due to patient's dementia and waxing and waning mentation. Objective - Vital Signs/Intake and Output Vital Signs (last 24 hours): Temp Pulse Resp BP Pulse Ox 98.2 F 60 18 188/73 H 98 11/09/16 08:26 11/09/16 08:26 11/09/16 08:26 11/09/16 08:26 11/09/16 08:26 Intake and Output: 11/09/16 11/09/16 06:59 18:59 Intake Total 400 Balance 400 - Medications Medications: Current Medications Acetaminophen (Tylenol 325mg Tab) 650 mg PO Q6H PRN PRN Reason: Fever >100.4 F Last Admin: 11/08/16 05:32 Dose: 650 mg Albuterol/Ipratropium (Duoneb 3 Mg/0.5 Mg (3 Ml) Ud) 3 ml IH [id number] [facility] Last Admin: 11/09/16 09:02 Dose: 3 ml Alprazolam (Xanax) 0.5 mg PO TID [facility] Last Admin: 11/08/16 17:49 Dose: Not Given Amiodarone HCl (Cordarone) 200 mg PO DAILY [facility] Last Admin: 11/08/16 13:06 Dose: 200 mg Amlodipine Besylate (Norvasc) 10 mg PO DAILY [facility] Last Admin: 11/08/16 13:07 Dose: 10 mg Ascorbic Acid (Vitamin C 500 Mg Tab) 500 mg PO DAILY [facility] Last Admin: 11/08/16 13:07 Dose: 500 mg Aspirin (Ecotrin) 81 mg PO DAILY [facility] Last Admin: 11/08/16 13:06 Dose: 81 mg Atorvastatin Calcium (Lipitor) 80 mg PO DIN [facility] Last Admin: 11/08/16 17:49 Dose: Not Given Calcium Acetate (Phoslo) 667 mg PO WM [facility] Last Admin: 11/09/16 09:27 Dose: 667 mg Carbidopa/Levodopa (Sinemet 10/100) 1 tab PO TID [facility] Last Admin: 11/08/16 17:49 Dose: Not Given Carvedilol (Coreg) 6.25 mg PO Q12 [facility] Last Admin: 11/08/16 22:37 Dose: 6.25 mg Clonidine HCl (Catapres) 0.3 mg PO 0600,1400,2200 [facility] Last Admin: 11/09/16 05:20 Dose: 0.3 mg Collagenase (Santyl) 0 gm TOP DAILY [facility] Last Admin: 11/08/16 15:30 Dose: 1 applic Doxazosin Mesylate (Cardura) 1 mg PO 2200 [facility] Last Admin: 11/08/16 23:32 Dose: 1 mg Escitalopram Oxalate (Lexapro) 10 mg PO DAILY [facility] Last Admin: 11/08/16 13:06 Dose: 10 mg Gabapentin (Neurontin) 100 mg PO BID [facility] PRN Reason: Protocol Last Admin: 11/08/16 17:49 Dose: Not Given Hydralazine HCl (Apresoline) 100 mg PO Q8H [facility] Last Admin: 11/09/16 03:44 Dose: 100 mg Hydralazine HCl (Apresoline) 10 mg IVP Q6 PRN PRN Reason: Systolic Blood Pressure Last Admin: 11/08/16 18:46 Dose: 10 mg Piperacillin Sod/Tazobactam Sod (Zosyn 3.375 In Ns 100ml) 100 mls @ 200 mls/hr IVPB Q8H [facility] PRN Reason: Protocol Stop: 11/10/16 08:14 Last Admin: 11/09/16 09:28 Dose: 200 mls/hr Insulin Human Regular (Humulin R High) 0 units SC ACHS [facility] PRN Reason: Protocol Last Admin: 11/09/16 09:30 Dose: 2 units Lisinopril (Zestril) 80 mg PO DAILY [facility] Last Admin: 11/08/16 13:06 Dose: 80 mg Multivitamins (Thera Tab) 1 tab PO 0800 [facility] Last Admin: 11/09/16 09:28 Dose: 1 tab Nystatin (Nystop Topical Powder) 0 gm TOP BID [facility] Last Admin: 11/08/16 17:50 Dose: 1 gm Pantoprazole Sodium (Protonix Ec Tab) 40 mg PO ACB [facility] Last Admin: 11/09/16 09:28 Dose: 40 mg Primidone (Mysoline) 50 mg PO DAILY [facility] Last Admin: 11/08/16 13:07 Dose: 50 mg Sertraline HCl (Zoloft) 25 mg PO HS [facility] Last Admin: 11/08/16 22:38 Dose: 25 mg Sevelamer HCl (Renagel) 800 mg PO WM [facility] Last Admin: 11/09/16 09:27 Dose: 800 mg Warfarin Sodium (Coumadin) 4 mg PO 1800 [facility] PRN Reason: Protocol Last Admin: 11/08/16 17:48 Dose: Not Given Zinc Sulfate (Zinc Sulfate 220 Mg Cap) 220 mg PO DAILY [facility] Last Admin: 11/08/16 13:05 Dose: 220 mg - Labs Labs: 11/09/16 06:10 11/09/16 06:10 PT 13.2 Seconds (9.9-11.8) H 11/07/16 07:00 INR 1.22 (0.93-1.08) H 11/07/16 07:00 APTT 36.0 Seconds (23.7-30.8) H 11/07/16 07:00 - Additional Findings Additional findings: Constitutional: a&o x 2 [self and place], nad Head and Neck: neck supple, no jvd, trachea midline, carotid midline, no cervical/head mass Eyes: julio, nonicteric sclera ENT: no nasal deformity Cardio: rrr, no m/r/g, no carotid bruit, nml s1, s2 Pulm: no accessory muscle use, equal nml breath sounds bilaterally, ctab Abd: s/nt/nd, nbs x 4 q, no palpable masses Derm: See additional findings Extr: R sided BKA; see additional findings- dressings c/d/i Neuro: cn II-XII grossly intact, ue and le 5/5 muscle strength bilaterally, no los ue, le bilaterally and core Additional:Sacral Decub ulcer- Unstagable 7x8cm; Right Patella- Stage 3 4x5; Left calcaneous- unstagable 3x3 Assessment and Plan - Assessment and Plan (Free Text) Assessment: 66Y F with PMH ESRD on HD (T,, ), CAD s/p CABG, seizures, depression, GERD, CHF, IDDM, Parkinsons, DVTs, antiphospholipid syndrome, and CVA admitted for sacral decubitis ulcer as well as hypertensive urgency. Plan: 1. Possible AMS - per daughter, patient is not at baseline - Wound Cx show Pseudomonas, E. Coli, but patient not showing clinical or laboratory signs of sepsis - Neuro C/s: Pt's AMS poss 2/2 elevated BPs or due to toxic encephalopathy. Brain MRI to evaluate for further causes of AMS. Brain MRI, Goal SBP 130-140, Avoid sedative medications, Monitor electrolytes , Continue current neurological medications - Neuro consult: Dr. Soriano 2. Hypertensive urgency- improved - Head CT showed no acute findings - Continue Amiodarone, Norvasc, Lisinopril, Hydralazine, Coreg, Clonidine - Clonidine increased to TID - Hydralazine PRN SBP >170 3. Sacral decubitus ulcer- unstageable; Anterior R Knee Ulcer; - Afebrile, mild leukocytosis - Podiatry consulted for LE wounds: continue offloading; C&S done; start collagenase foam dressing daily - Surgery: Wound care, air mattress, frequent turning Optifoam santyl to sacrum , left heel, and right knee ulcers - ID consulted: Tx of sacral ulcer will only be fruitful if there is plan for diverting colostomy - if no plan for this, conservative tx should be done (ie. local wound care) and short course of systemic ABx(5-7 days) - Continue Zosyn and Zyvox - Wound cultures: Coag Neg Staph, likely contaminated according to ID - Zinc, Multivitamin, Vitamin C - Continue Pain control - s/p Angio 11/07: critical stenosis of L anterior tibial A origin; successful angioplasty of L anterior tibial A origin with 3mm balloon; patent L femoral- popliteal prosthetic bypass graft, severe L tibial and pedal occlusive disease. There is 1 vessel runoff via the left anterior tibial artery; L posterior tibial artery and plantar arch are occluded 4. Deep Tissue Injury underlying hemorrhagic Negron Grade 3 ulcer to the left heel - Podiatry: Cleansed Left heel with sterile saline. - Surgery: Keep multipodus boot on; Santyl is debriding well 5. ESRD on HD - Will continue HD schedule - got HD today - Continue Renagel - Nephro Consulted- Dr. Eller who she sees as outpt for HD 6. IDDM - ISS - BGM ACHS 7. CAD s/p CABG - Lipitor, ASA 8. Antiphospholipid syndrome - Continue Coumadin - INR therapeutic 9. Hx of Depression and anxiety - Continue Xanax and Lexapro 10. Hx of Parkinsons - Continue Primodone and Sinemet GI ppx: Protonix DVT ppx: Coumadin Dispo: pending TCU eval Case discussed with Dr. Carla Wall PGY2
--- NOTE | 2016-11-09 10:28 | RAD ---
HISTORY: r/o aspiration COMPARISON: 10/07/2016. FINDINGS: LUNGS: No active pulmonary disease. PLEURA: No significant pleural effusion identified, no pneumothorax apparent. CARDIOVASCULAR: No radiographic findings to suggest acute or significant cardiovascular disease. Venous access catheter in stable, satisfactory position. OSSEOUS STRUCTURES: No significant abnormalities. VISUALIZED UPPER ABDOMEN: Normal. OTHER FINDINGS: None. IMPRESSION: No active disease. No significant interval change compared to the prior examination(s). No preliminary report provided by emergency department personnel.
[2016-11-09 11:11] LABS: % IRON SATURATION 38 % (20-55); IRON 52 ug/dL (45-180); TOTAL IRON BINDING CAPACITY 138 ug/dL (265-497)
[2016-11-09] MEDS: Nystatin 100,000 Units/gm Topical Pow(15 gm) TOP SCH (11:11)
[2016-11-09] MEDS: Collagenase 250 Units/gm Ointment(30 gm) TOP SCH (11:11)
--- NOTE | 2016-11-09 13:35 | PN ---
SUBJECTIVE: A 66-year-old female who seen at bedside for continued evaluation and management of a worsening left heel ulceration. The patient's wound has been offloaded at all times; however, due to her decreased lower extremity perfusion on her left, the wound continues to slowly breakdown despite aggressive offloading treatment protocols. PHYSICAL EXAMINATION: VITAL SIGNS: Reveal a temperature of 98.2, pulse rate of 60, blood pressure of 188/73, respiratory rate of 18. LABORATORY FINDINGS: Reveal white count of 13.1, hemoglobin of 8.5, hematocrit of 27.5, platelet count of 269. Wound culture on the left heel reveals E. coli and pseudomonal aeruginosa growth. X-rays were taken, which reveal no radiographic evidence of cortical destruction at the calcaneus to suggest the osteomyelitis. OBJECTIVE: Noted right below-knee amputation. Left lower extremity presents with nonpalpable pedal pulses, absent pedal hair growth, and the patient is unable to detect 5.07 gram monofilament wire testing. The left heel presents with a non-stageable superficial ulceration that measures clinically 1.5 cm x 1.5 cm x 0.2 cm. Base of the ulcer is primarily ecchymotic tissue at this point; however, there is noted to be a moderate amount of serous drainage. There is no purulence that suggest underlying abscess formation, the wound does not probe to tendon or bone. ASSESSMENT: A 66-year-old diabetic female with non-stageable left heel ulceration, which continues to breakdown despite aggressive offloading and daily wound care. PLAN: The patient's wound was cleansed with normal sterile saline, we will apply Betadine solution and a dry sterile dressing for the next 2 days in an effort to decrease the maceration. The patient has her offloading boot in place at all times, which is imperative to prevent further skin breakdown. Dr. Wood's note was read and appreciated. We will continue with IV antibiotics as per infectious disease. We will apply a pillow under her lower legs in addition to the formal type podus boots to decrease amount of pressure on the heel. The patient will be seen and followed daily. Dany Gay DPM [facility] # [id number]
[2016-11-09 14:24] LABS: FOLATE > 20.0 ng/mL
--- NOTE | 2016-11-09 21:10 | CP.PCM.PN ---
Subjective - Date & Time of Evaluation Date of Evaluation: 11/09/16 Time of Evaluation: 12:00 - Subjective Subjective: Comfortable, not in distress, afebrile. Objective - Vital Signs/Intake and Output Vital Signs (last 24 hours): Temp Pulse Resp BP Pulse Ox 98.2 F 60 18 188/73 H 98 11/09/16 08:26 11/09/16 08:26 11/09/16 08:26 11/09/16 08:26 11/09/16 08:26 Intake and Output: 11/09/16 11/09/16 06:59 18:59 Intake Total 400 Balance 400 - Medications Medications: Current Medications Acetaminophen (Tylenol 325mg Tab) 650 mg PO Q6H PRN PRN Reason: Fever >100.4 F Last Admin: 11/08/16 05:32 Dose: 650 mg Albuterol/Ipratropium (Duoneb 3 Mg/0.5 Mg (3 Ml) Ud) 3 ml IH [id number] [facility] Last Admin: 11/09/16 09:02 Dose: 3 ml Alprazolam (Xanax) 0.5 mg PO TID [facility] Last Admin: 11/08/16 17:49 Dose: Not Given Amiodarone HCl (Cordarone) 200 mg PO DAILY [facility] Last Admin: 11/08/16 13:06 Dose: 200 mg Amlodipine Besylate (Norvasc) 10 mg PO DAILY [facility] Last Admin: 11/08/16 13:07 Dose: 10 mg Ascorbic Acid (Vitamin C 500 Mg Tab) 500 mg PO DAILY [facility] Last Admin: 11/08/16 13:07 Dose: 500 mg Aspirin (Ecotrin) 81 mg PO DAILY [facility] Last Admin: 11/08/16 13:06 Dose: 81 mg Atorvastatin Calcium (Lipitor) 80 mg PO DIN [facility] Last Admin: 11/08/16 17:49 Dose: Not Given Calcium Acetate (Phoslo) 667 mg PO WM [facility] Last Admin: 11/09/16 09:27 Dose: 667 mg Carbidopa/Levodopa (Sinemet 10/100) 1 tab PO TID [facility] Last Admin: 11/08/16 17:49 Dose: Not Given Carvedilol (Coreg) 6.25 mg PO Q12 [facility] Last Admin: 11/08/16 22:37 Dose: 6.25 mg Clonidine HCl (Catapres) 0.3 mg PO 0600,1400,2200 [facility] Last Admin: 11/09/16 05:20 Dose: 0.3 mg Collagenase (Santyl) 0 gm TOP DAILY [facility] Last Admin: 11/08/16 15:30 Dose: 1 applic Doxazosin Mesylate (Cardura) 1 mg PO 2200 [facility] Last Admin: 11/08/16 23:32 Dose: 1 mg Escitalopram Oxalate (Lexapro) 10 mg PO DAILY [facility] Last Admin: 11/08/16 13:06 Dose: 10 mg Gabapentin (Neurontin) 100 mg PO BID [facility] PRN Reason: Protocol Last Admin: 11/08/16 17:49 Dose: Not Given Hydralazine HCl (Apresoline) 100 mg PO Q8H [facility] Last Admin: 11/09/16 03:44 Dose: 100 mg Hydralazine HCl (Apresoline) 10 mg IVP Q6 PRN PRN Reason: Systolic Blood Pressure Last Admin: 11/08/16 18:46 Dose: 10 mg Piperacillin Sod/Tazobactam Sod (Zosyn 3.375 In Ns 100ml) 100 mls @ 200 mls/hr IVPB Q8H [facility] PRN Reason: Protocol Stop: 11/10/16 08:14 Last Admin: 11/09/16 09:28 Dose: 200 mls/hr Insulin Human Regular (Humulin R High) 0 units SC ACHS [facility] PRN Reason: Protocol Last Admin: 11/09/16 09:30 Dose: 2 units Lisinopril (Zestril) 80 mg PO DAILY [facility] Last Admin: 11/08/16 13:06 Dose: 80 mg Multivitamins (Thera Tab) 1 tab PO 0800 [facility] Last Admin: 11/09/16 09:28 Dose: 1 tab Nystatin (Nystop Topical Powder) 0 gm TOP BID [facility] Last Admin: 11/08/16 17:50 Dose: 1 gm Pantoprazole Sodium (Protonix Ec Tab) 40 mg PO ACB [facility] Last Admin: 11/09/16 09:28 Dose: 40 mg Primidone (Mysoline) 50 mg PO DAILY [facility] Last Admin: 11/08/16 13:07 Dose: 50 mg Sertraline HCl (Zoloft) 25 mg PO HS [facility] Last Admin: 11/08/16 22:38 Dose: 25 mg Sevelamer HCl (Renagel) 800 mg PO WM [facility] Last Admin: 11/09/16 09:27 Dose: 800 mg Warfarin Sodium (Coumadin) 4 mg PO 1800 [facility] PRN Reason: Protocol Last Admin: 11/08/16 17:48 Dose: Not Given Zinc Sulfate (Zinc Sulfate 220 Mg Cap) 220 mg PO DAILY [facility] Last Admin: 11/08/16 13:05 Dose: 220 mg - Labs Labs: 11/09/16 06:10 11/09/16 06:10 PT 13.2 Seconds (9.9-11.8) H 11/07/16 07:00 INR 1.22 (0.93-1.08) H 11/07/16 07:00 APTT 36.0 Seconds (23.7-30.8) H 11/07/16 07:00 - Constitutional Appears: Non-toxic, No Acute Distress - Head Exam Head Exam: NORMAL INSPECTION - Respiratory Exam Respiratory Exam: Decreased Breath Sounds - Cardiovascular Exam Cardiovascular Exam: +S1, +S2 - GI/Abdominal Exam GI & Abdominal Exam: Soft. absent: Tenderness Assessment and Plan - Assessment and Plan (Free Text) Plan: Assessment sacral decubitus ulcer, currently unstageable, R/O infection peripheral arterial disease history of left foot ulcer, which grew E. faecalis, E. coli and Pseudomonas history of acute left occipital lobe infarct history of sepsis due to left sided healthcare-associated pneumonia history of Left heel ulcer with evidence of acute osteomyelitis on bone scan on 07/2016 ESRD on HD CAD S/P CABG chronic CHF DM history of anti-phospholipid antibody syndrome S/P right below the knee amputation Plan continue on Zyvox and Zosyn day 7 based on previous cultures; current wound cx only showing coag neg staph which is probably a contaminant; blood cx negative as well; reviewed Surgery evaluation and plans - conservative therapy only; treatment of sacral ulcer will only be fruitful if there is plan for diverting colostomy - if no plan for this, conservative therapy should be done (ie. local wound care) and short course of systemic antibiotics (5-7 days of therapy) angioplasty has been done on the left leg - continue antibiotics to treat the left leg heel ulcer with probable infection
[2016-11-10] MEDS: Albuterol-Ipratrop 3 mg / 0.5 (3 ml) UD IH SCH ×4 (01:25→20:19)
[2016-11-10 07:03] LABS: BASO # 0.03 K/mm3 (0.0-2.0); BASO % 0.3 % (0.0-3.0); EOS # 0.3 (0.0-0.7); EOS % 2.7 % (1.5-5.0); GRAN # 9.89 (1.4-6.5); GRAN % 82.5 % (50.0-68.0); HEMOGLOBIN 8.4 g/dL (12.0-16.0); LYMPH % 8.6 % (22.0-35.0); MEAN CORPUSCULAR HEMOGLOBIN 25.5 pg (25.0-35.0); MEAN CORPUSCULAR HGB CONC 30.7 g/dl (31.0-37.0); MEAN PLATELET VOLUME 9.7 fl (7.0-11.0); MONO # 0.7 (0.1-0.6); MONO % 5.9 % (1.0-6.0); PLATELET COUNT 258 10^3/uL (120.0-450.0); RED CELL DISTRIBUTION WIDTH 17.2 % (11.5-14.5)
[2016-11-10 07:13] LABS: ALB/GLOB RATIO 0.9 (1.1-1.8); ALBUMIN 3.3 g/dL (3.0-4.8); CALCIUM 10.1 mg/dL (8.4-10.5); MAGNESIUM 2.1 mg/dL (1.7-2.2)
[2016-11-10] MEDS: Insulin Reg-HIGH-Coverage SC SCH ×4 (08:00→22:25)
[2016-11-10] MEDS: Piperacillin/Tazobact 3.375 gm 100 ML IVPB SCH (08:14)
[2016-11-10] MEDS: Pantoprazole 40 mg EC Tab PO SCH (08:30)
[2016-11-10] MEDS: Multivitamin Therapeutic Tab PO SCH (09:00)
[2016-11-10] MEDS: Nystatin 100,000 Units/gm Topical Pow(15 gm) TOP SCH (10:21)
[2016-11-10] MEDS: Collagenase 250 Units/gm Ointment(30 gm) TOP SCH (10:22)
--- NOTE | 2016-11-10 14:46 | CP.PCM.PN ---
Subjective - Date & Time of Evaluation Date of Evaluation: 11/10/16 Time of Evaluation: 14:37 - Subjective Subjective: Medicine progress note for Dr. Aguirre/Dr. Morton service - Nestor Castellanos PGY2 Patient seen and examined at bedside this morning in conjunction with attending , Dr. Santiago. Patient reported no acute overnight events or new complaints. Discussed need for further antibiotic treatment for her multiple wounds. Denied chest pain, palpitations, SOB, abdominal pain, nausea, vomiting. Brain MRI is pending read. Objective - Vital Signs/Intake and Output Vital Signs (last 24 hours): Temp Pulse Resp BP Pulse Ox 98.8 F 63 21 185/70 H 99 11/10/16 07:59 11/10/16 13:56 11/10/16 07:59 11/10/16 13:56 11/10/16 07:59 Intake and Output: 11/10/16 11/10/16 06:59 18:59 Intake Total 520 Output Total 0 Balance 520 - Medications Medications: Current Medications Acetaminophen (Tylenol 325mg Tab) 650 mg PO Q6H PRN PRN Reason: Fever >100.4 F Last Admin: 11/09/16 17:41 Dose: 650 mg Albuterol/Ipratropium (Duoneb 3 Mg/0.5 Mg (3 Ml) Ud) 3 ml IH [id number] [facility] Last Admin: 11/10/16 13:35 Dose: 3 ml Alprazolam (Xanax) 0.5 mg PO TID [facility] Last Admin: 11/10/16 14:07 Dose: Not Given Amiodarone HCl (Cordarone) 200 mg PO DAILY [facility] Last Admin: 11/10/16 10:19 Dose: 200 mg Amlodipine Besylate (Norvasc) 10 mg PO DAILY [facility] Last Admin: 11/10/16 10:16 Dose: 10 mg Ascorbic Acid (Vitamin C 500 Mg Tab) 500 mg PO DAILY [facility] Last Admin: 11/10/16 10:17 Dose: 500 mg Aspirin (Ecotrin) 81 mg PO DAILY [facility] Last Admin: 11/10/16 10:20 Dose: 81 mg Atorvastatin Calcium (Lipitor) 80 mg PO DIN [facility] Last Admin: 11/09/16 18:11 Dose: 80 mg Calcium Acetate (Phoslo) 667 mg PO WM [facility] Last Admin: 11/10/16 13:58 Dose: 667 mg Carbidopa/Levodopa (Sinemet 10/100) 1 tab PO TID [facility] Last Admin: 11/10/16 13:58 Dose: 1 tab Carvedilol (Coreg) 6.25 mg PO Q12 [facility] Last Admin: 11/10/16 10:18 Dose: 6.25 mg Clonidine HCl (Catapres) 0.3 mg PO 0600,1400,2200 [facility] Last Admin: 11/10/16 13:56 Dose: 0.3 mg Collagenase (Santyl) 0 gm TOP DAILY [facility] Last Admin: 11/10/16 10:22 Dose: 1 applic Doxazosin Mesylate (Cardura) 1 mg PO 2200 [facility] Last Admin: 11/09/16 21:39 Dose: 1 mg Escitalopram Oxalate (Lexapro) 10 mg PO DAILY [facility] Last Admin: 11/10/16 10:19 Dose: 10 mg Gabapentin (Neurontin) 100 mg PO BID [facility] PRN Reason: Protocol Last Admin: 11/10/16 10:18 Dose: 100 mg Hydralazine HCl (Apresoline) 100 mg PO Q8H [facility] Last Admin: 11/10/16 10:20 Dose: 100 mg Hydralazine HCl (Apresoline) 10 mg IVP Q6 PRN PRN Reason: Systolic Blood Pressure Last Admin: 11/10/16 10:25 Dose: 10 mg Insulin Human Regular (Humulin R High) 0 units SC ACHS [facility] PRN Reason: Protocol Last Admin: 11/10/16 12:30 Dose: 4 units Lisinopril (Zestril) 80 mg PO DAILY [facility] Last Admin: 11/10/16 10:18 Dose: 80 mg Multivitamins (Thera Tab) 1 tab PO 0800 [facility] Last Admin: 11/10/16 09:00 Dose: 1 tab Nystatin (Nystop Topical Powder) 0 gm TOP BID [facility] Last Admin: 11/10/16 10:21 Dose: 1 gm Pantoprazole Sodium (Protonix Ec Tab) 40 mg PO ACB [facility] Last Admin: 11/10/16 08:30 Dose: 40 mg Primidone (Mysoline) 50 mg PO DAILY [facility] Last Admin: 11/10/16 10:19 Dose: 50 mg Sertraline HCl (Zoloft) 25 mg PO HS [facility] Last Admin: 11/09/16 21:38 Dose: 25 mg Sevelamer HCl (Renagel) 800 mg PO WM [facility] Last Admin: 11/10/16 13:58 Dose: 800 mg Warfarin Sodium (Coumadin) 4 mg PO 1800 [facility] PRN Reason: Protocol Last Admin: 11/09/16 18:11 Dose: 4 mg Zinc Sulfate (Zinc Sulfate 220 Mg Cap) 220 mg PO DAILY [facility] Last Admin: 11/10/16 10:19 Dose: 220 mg - Labs Labs: 11/10/16 06:00 11/10/16 06:00 PT 13.2 Seconds (9.9-11.8) H 11/07/16 07:00 INR 1.22 (0.93-1.08) H 11/07/16 07:00 APTT 36.0 Seconds (23.7-30.8) H 11/07/16 07:00 - Constitutional Appears: Non-toxic, No Acute Distress - Head Exam Head Exam: ATRAUMATIC, NORMAL INSPECTION, NORMOCEPHALIC - Eye Exam Eye Exam: EOMI, PERRL - ENT Exam ENT Exam: Mucous Membranes Moist - Neck Exam Neck Exam: Normal Inspection - Respiratory Exam Respiratory Exam: Decreased Breath Sounds. absent: Rales, Rhonchi, Wheezes - Cardiovascular Exam Cardiovascular Exam: +S1, +S2. absent: Gallop, Rubs, Murmur - GI/Abdominal Exam GI & Abdominal Exam: Soft. absent: Distended, Firm, Guarding, Rigid, Tenderness , Rebound - Neurological Exam Neurological Exam: Alert, Awake Assessment and Plan - Assessment and Plan (Free Text) Plan: 66Y F with PMH ESRD on HD (,, ), CAD s/p CABG, seizures, depression, GERD, CHF, IDDM, Parkinsons, DVTs, antiphospholipid syndrome, and CVA admitted for sacral decubitis ulcer as well as hypertensive urgency. 1. Sacral decubitus ulcer - Afebrile, leukocytosis of 12 today from 13.1 yesterday - Unstageable ulceration - Podiatry consulted for LE wounds: recommend to continue offloading; start collagenase foam dressing daily - Surgery consulted: will continue with wound care, air mattress, frequent turning Optifoam santyl to sacrum, left heel, and right knee ulcers - ID consulted: Patient currently on antibiotics with Zosyn however reports that treatment of sacral ulcer will only be fruitful if there is plan for diverting colostomy - if no plan for this, conservative tx should be done (ie. local wound care) and short course of systemic ABx(5-7 days) - Wound cultures grew coag negative staph, likely a contamination - Wound culture of left foot grew Ecoli and Pseudomonas - Zinc, Multivitamin, Vitamin C - Continue Pain control - s/p Angio 11/07: critical stenosis of L anterior tibial A origin; successful angioplasty of L anterior tibial A origin with 3mm balloon; patent L femoral- popliteal prosthetic bypass graft, severe L tibial and pedal occlusive disease. There is 1 vessel runoff via the left anterior tibial artery; L posterior tibial artery and plantar arch are occluded 2. Hypertensive urgency - Head CT showed no acute findings - Continue Amiodarone, Norvasc, Lisinopril, Hydralazine, Coreg, Clonidine - Clonidine increased to TID - Hydralazine PRN for SBP >170 - Will continue to monitor BP and adjust antihypertensives as indicated, however patient may require increased fluid removal during dialysis sessions to obtain adequate BP control 3. Altered Mental Status - Per reports from daughter patient is not at baseline possibly secondary to infectious etiology - Per neurology patients AMS possibly 2/2 elevated BPs or due to toxic encephalopathy. Brain MRI was ordered and is pending to evaluate for further causes of AMS. - Neuro consult: Dr. Soriano 4. Left Heel Ulcer - Podiatry consulted and treating with local wound care - Surgery: Keep multipodus boot on; Santyl is debriding well 5. ESRD on HD (//Fri) - Patient reportedly tolerating HD well - Continue Renagel - Nephro Consulted - Dr. Eller 6. IDDM - ISS - Fingersticks ACHS - Consistent carb diet 7. CAD s/p CABG - Lipitor, ASA 8. Antiphospholipid syndrome - Continue Coumadin - INR Pending; Prior INR subtheurapeutic 9. Hx of Depression and anxiety - Continue Xanax and Lexapro 10. Hx of Parkinsons - Continue Primodone and Sinemet 11. GI/DVT Prophylaxis -Protonix/Coumadin Patient seen and case discussed with attending, Dr. Santiago
--- NOTE | 2016-11-10 15:31 | CP.PCM.PN ---
<Roverto Grant - Last Filed: 11/10/16 15:28> Subjective - Date & Time of Evaluation Date of Evaluation: 11/10/16 Time of Evaluation: 15:28 - Subjective Subjective: 66 year old female seen at bedside with attending, Dr. Issa concerning left heel deep tissue injury and ulcer. Patient is breathing with oxygen. She states that pain in her foot is decreased and denies any acute overnight events. She also says that she removed her multipodus boot this morning. Patient denies any further pedal complaints at this time. Patient denies N/V/F/C/CP/SOB Objective - Vital Signs/Intake and Output Vital Signs (last 24 hours): Temp Pulse Resp BP Pulse Ox 98.8 F 54 L 21 185/70 H 99 11/10/16 07:59 11/10/16 14:00 11/10/16 07:59 11/10/16 13:56 11/10/16 07:59 Intake and Output: 11/10/16 11/10/16 06:59 18:59 Intake Total 520 Output Total 0 Balance 520 - Medications Medications: Current Medications Acetaminophen (Tylenol 325mg Tab) 650 mg PO Q6H PRN PRN Reason: Fever >100.4 F Last Admin: 11/09/16 17:41 Dose: 650 mg Albuterol/Ipratropium (Duoneb 3 Mg/0.5 Mg (3 Ml) Ud) 3 ml [facility]H [id number] [facility] Last Admin: 11/10/16 13:35 Dose: 3 ml Alprazolam (Xanax) 0.5 mg PO TID [facility] Last Admin: 11/10/16 14:07 Dose: Not Given Amiodarone HCl (Cordarone) 200 mg PO DAILY [facility] Last Admin: 11/10/16 10:19 Dose: 200 mg Amlodipine Besylate (Norvasc) 10 mg PO DAILY [facility] Last Admin: 11/10/16 10:16 Dose: 10 mg Ascorbic Acid (Vitamin C 500 Mg Tab) 500 mg PO DAILY [facility] Last Admin: 11/10/16 10:17 Dose: 500 mg Aspirin (Ecotrin) 81 mg PO DAILY [facility] Last Admin: 11/10/16 10:20 Dose: 81 mg Atorvastatin Calcium (Lipitor) 80 mg PO DIN [facility] Last Admin: 11/09/16 18:11 Dose: 80 mg Calcium Acetate (Phoslo) 667 mg PO WM [facility] Last Admin: 11/10/16 13:58 Dose: 667 mg Carbidopa/Levodopa (Sinemet 10/100) 1 tab PO TID [facility] Last Admin: 11/10/16 13:58 Dose: 1 tab Carvedilol (Coreg) 6.25 mg PO Q12 [facility] Last Admin: 11/10/16 10:18 Dose: 6.25 mg Clonidine HCl (Catapres) 0.3 mg PO 0600,1400,2200 [facility] Last Admin: 11/10/16 13:56 Dose: 0.3 mg Collagenase (Santyl) 0 gm TOP DAILY [facility] Last Admin: 11/10/16 10:22 Dose: 1 applic Doxazosin Mesylate (Cardura) 1 mg PO 2200 [facility] Last Admin: 11/09/16 21:39 Dose: 1 mg Escitalopram Oxalate (Lexapro) 10 mg PO DAILY [facility] Last Admin: 11/10/16 10:19 Dose: 10 mg Gabapentin (Neurontin) 100 mg PO BID [facility] PRN Reason: Protocol Last Admin: 11/10/16 10:18 Dose: 100 mg Hydralazine HCl (Apresoline) 100 mg PO Q8H [facility] Last Admin: 11/10/16 10:20 Dose: 100 mg Hydralazine HCl (Apresoline) 10 mg IVP Q6 PRN PRN Reason: Systolic Blood Pressure Last Admin: 11/10/16 10:25 Dose: 10 mg Insulin Human Regular (Humulin R High) 0 units SC ACHS [facility] PRN Reason: Protocol Last Admin: 11/10/16 12:30 Dose: 4 units Lisinopril (Zestril) 80 mg PO DAILY [facility] Last Admin: 11/10/16 10:18 Dose: 80 mg Multivitamins (Thera Tab) 1 tab PO 0800 [facility] Last Admin: 11/10/16 09:00 Dose: 1 tab Nystatin (Nystop Topical Powder) 0 gm TOP BID [facility] Last Admin: 11/10/16 10:21 Dose: 1 gm Pantoprazole Sodium (Protonix Ec Tab) 40 mg PO ACB [facility] Last Admin: 11/10/16 08:30 Dose: 40 mg Primidone (Mysoline) 50 mg PO DAILY [facility] Last Admin: 11/10/16 10:19 Dose: 50 mg Sertraline HCl (Zoloft) 25 mg PO HS [facility] Last Admin: 11/09/16 21:38 Dose: 25 mg Sevelamer HCl (Renagel) 800 mg PO WM [facility] Last Admin: 11/10/16 13:58 Dose: 800 mg Warfarin Sodium (Coumadin) 4 mg PO 1800 [facility] PRN Reason: Protocol Last Admin: 11/09/16 18:11 Dose: 4 mg Zinc Sulfate (Zinc Sulfate 220 Mg Cap) 220 mg PO DAILY [facility] Last Admin: 11/10/16 10:19 Dose: 220 mg - Labs Labs: 11/10/16 06:00 11/10/16 06:00 PT 13.2 Seconds (9.9-11.8) H 11/07/16 07:00 INR 1.22 (0.93-1.08) H 11/07/16 07:00 APTT 36.0 Seconds (23.7-30.8) H 11/07/16 07:00 - Constitutional Appears: Well, Non-toxic, No Acute Distress - Extremities Exam Additional comments: Dressing clean, dry, and intact to left LLE. RLE is absent due to prior below knee amputation. Neuro-vascular status grossly diminished to left lower extremity at level of digits. DERM: Ecchymosis and de-roofed bulla with open wound base measuring 1.5x1.5x.2 cm tissue is hemorragic. No noted sinus tract to bone. Non-blanchable erythema noted. Mild edema noted, no abcess or pus noted, minimal drainage on the dressing. - Neurological Exam Neurological Exam: Alert, Awake, Oriented x3 - Psychiatric Exam Psychiatric exam: Normal Affect, Normal Mood Assessment and Plan - Assessment and Plan (Free Text) Assessment: 66 year old female with 1) Deep Tissue Injury underlying hemorrhagic Negron Grade 2 ulcer to the left heel Plan: Pt seen and evaluated at bedside Chart, labs, and vitals reviewed; afebrile WBC 12.0 Continue offloading left lower extremity in multipodis boot while in bed. The importance of this was stressed to patient Dressed wound with betadine, DSD Continue IV antibiotics as per ID Vascular consult reviewed- due to extensive vasculopathy, arteriogram to be performed on next dialysis day to asses Fem-pop and below knee runoff. . Podiatry will continue to follow while in house. <Dworkin,Elmira K - Last Filed: 11/10/16 19:59> Objective - Vital Signs/Intake and Output Vital Signs (last 24 hours): Temp Pulse Resp BP Pulse Ox 98.8 F 56 L 21 185/70 H 99 11/10/16 07:59 11/10/16 18:00 11/10/16 07:59 11/10/16 13:56 11/10/16 07:59 Intake and Output: 11/10/16 11/11/16 18:59 06:59 Intake Total 240 Balance 240 - Medications Medications: Current Medications Acetaminophen (Tylenol 325mg Tab) 650 mg PO Q6H PRN PRN Reason: Fever >100.4 F Last Admin: 11/09/16 17:41 Dose: 650 mg Albuterol/Ipratropium (Duoneb 3 Mg/0.5 Mg (3 Ml) Ud) 3 ml [facility]H [id number] [facility] Last Admin: 11/10/16 13:35 Dose: 3 ml Alprazolam (Xanax) 0.5 mg PO TID [facility] Last Admin: 11/10/16 17:57 Dose: Not Given Amiodarone HCl (Cordarone) 200 mg PO DAILY [facility] Last Admin: 11/10/16 10:19 Dose: 200 mg Amlodipine Besylate (Norvasc) 10 mg PO DAILY [facility] Last Admin: 11/10/16 10:16 Dose: 10 mg Ascorbic Acid (Vitamin C 500 Mg Tab) 500 mg PO DAILY [facility] Last Admin: 11/10/16 10:17 Dose: 500 mg Aspirin (Ecotrin) 81 mg PO DAILY [facility] Last Admin: 11/10/16 10:20 Dose: 81 mg Atorvastatin Calcium (Lipitor) 80 mg PO DIN [facility] Last Admin: 11/10/16 17:54 Dose: 80 mg Calcium Acetate (Phoslo) 667 mg PO WM [facility] Last Admin: 11/10/16 17:54 Dose: 667 mg Carbidopa/Levodopa (Sinemet 10/100) 1 tab PO TID [facility] Last Admin: 11/10/16 17:54 Dose: 1 tab Carvedilol (Coreg) 6.25 mg PO Q12 [facility] Last Admin: 11/10/16 10:18 Dose: 6.25 mg Clonidine HCl (Catapres) 0.3 mg PO 0600,1400,2200 [facility] Last Admin: 11/10/16 13:56 Dose: 0.3 mg Collagenase (Santyl) 0 gm TOP DAILY [facility] Last Admin: 11/10/16 10:22 Dose: 1 applic Doxazosin Mesylate (Cardura) 1 mg PO 2200 [facility] Last Admin: 11/09/16 21:39 Dose: 1 mg Escitalopram Oxalate (Lexapro) 10 mg PO DAILY [facility] Last Admin: 11/10/16 10:19 Dose: 10 mg Gabapentin (Neurontin) 100 mg PO BID [facility] PRN Reason: Protocol Last Admin: 11/10/16 17:54 Dose: 100 mg Hydralazine HCl (Apresoline) 100 mg PO Q8H [facility] Last Admin: 11/10/16 10:20 Dose: 100 mg Hydralazine HCl (Apresoline) 10 mg IVP Q6 PRN PRN Reason: Systolic Blood Pressure Last Admin: 11/10/16 10:25 Dose: 10 mg Insulin Human Regular (Humulin R High) 0 units SC ACHS [facility] PRN Reason: Protocol Last Admin: 11/10/16 17:56 Dose: Not Given Lisinopril (Zestril) 80 mg PO DAILY [facility] Last Admin: 11/10/16 10:18 Dose: 80 mg Multivitamins (Thera Tab) 1 tab PO 0800 [facility] Last Admin: 11/10/16 09:00 Dose: 1 tab Nystatin (Nystop Topical Powder) 0 gm TOP BID [facility] Last Admin: 11/10/16 10:21 Dose: 1 gm Pantoprazole Sodium (Protonix Ec Tab) 40 mg PO ACB [facility] Last Admin: 11/10/16 08:30 Dose: 40 mg Primidone (Mysoline) 50 mg PO DAILY [facility] Last Admin: 11/10/16 10:19 Dose: 50 mg Sertraline HCl (Zoloft) 25 mg PO HS [facility] Last Admin: 11/09/16 21:38 Dose: 25 mg Sevelamer HCl (Renagel) 800 mg PO WM [facility] Last Admin: 11/10/16 17:55 Dose: 800 mg Warfarin Sodium (Coumadin) 4 mg PO 1800 [facility] PRN Reason: Protocol Last Admin: 11/10/16 17:55 Dose: 4 mg Zinc Sulfate (Zinc Sulfate 220 Mg Cap) 220 mg PO DAILY [facility] Last Admin: 11/10/16 10:19 Dose: 220 mg - Labs Labs: 11/10/16 06:00 11/10/16 06:00 PT 13.2 Seconds (9.9-11.8) H 11/07/16 07:00 INR 1.22 (0.93-1.08) H 11/07/16 07:00 APTT 36.0 Seconds (23.7-30.8) H 11/07/16 07:00 Attending/Attestation - Attestation I have personally seen and examined this patient.: Yes I have fully participated in the care of the patient.: Yes I have reviewed all pertinent clinical information, including history, physical exam and plan: Yes
--- NOTE | 2016-11-10 18:12 | CP.PCM.PN ---
Subjective - Date & Time of Evaluation Date of Evaluation: 11/10/16 Time of Evaluation: 11:25 - Subjective Subjective: Afebrile, not in distress. Objective - Vital Signs/Intake and Output Vital Signs (last 24 hours): Temp Pulse Resp BP Pulse Ox 98.8 F 63 21 185/70 H 99 11/10/16 07:59 11/10/16 07:59 11/10/16 07:59 11/10/16 07:59 11/10/16 07:59 Intake and Output: 11/10/16 11/10/16 06:59 18:59 Intake Total 520 Output Total 0 Balance 520 - Medications Medications: Current Medications Acetaminophen (Tylenol 325mg Tab) 650 mg PO Q6H PRN PRN Reason: Fever >100.4 F Last Admin: 11/09/16 17:41 Dose: 650 mg Albuterol/Ipratropium (Duoneb 3 Mg/0.5 Mg (3 Ml) Ud) 3 ml IH [id number] [facility] Last Admin: 11/10/16 07:48 Dose: 3 ml Alprazolam (Xanax) 0.5 mg PO TID [facility] Last Admin: 11/09/16 14:58 Dose: 0.5 mg Amiodarone HCl (Cordarone) 200 mg PO DAILY [facility] Last Admin: 11/09/16 11:08 Dose: 200 mg Amlodipine Besylate (Norvasc) 10 mg PO DAILY [facility] Last Admin: 11/09/16 11:08 Dose: 10 mg Ascorbic Acid (Vitamin C 500 Mg Tab) 500 mg PO DAILY [facility] Last Admin: 11/09/16 11:08 Dose: 500 mg Aspirin (Ecotrin) 81 mg PO DAILY [facility] Last Admin: 11/09/16 11:11 Dose: 81 mg Atorvastatin Calcium (Lipitor) 80 mg PO DIN [facility] Last Admin: 11/09/16 18:11 Dose: 80 mg Calcium Acetate (Phoslo) 667 mg PO WM [facility] Last Admin: 11/09/16 17:40 Dose: 667 mg Carbidopa/Levodopa (Sinemet 10/100) 1 tab PO TID [facility] Last Admin: 11/09/16 18:11 Dose: 1 tab Carvedilol (Coreg) 6.25 mg PO Q12 [facility] Last Admin: 11/09/16 21:35 Dose: 6.25 mg Clonidine HCl (Catapres) 0.3 mg PO 0600,1400,2200 [facility] Last Admin: 11/10/16 05:50 Dose: 0.3 mg Collagenase (Santyl) 0 gm TOP DAILY [facility] Last Admin: 11/09/16 11:11 Dose: 1 applic Doxazosin Mesylate (Cardura) 1 mg PO 2200 [facility] Last Admin: 11/09/16 21:39 Dose: 1 mg Escitalopram Oxalate (Lexapro) 10 mg PO DAILY [facility] Last Admin: 11/09/16 11:06 Dose: 10 mg Gabapentin (Neurontin) 100 mg PO BID [facility] PRN Reason: Protocol Last Admin: 11/09/16 18:11 Dose: 100 mg Hydralazine HCl (Apresoline) 100 mg PO Q8H [facility] Last Admin: 11/10/16 03:55 Dose: 100 mg Hydralazine HCl (Apresoline) 10 mg IVP Q6 PRN PRN Reason: Systolic Blood Pressure Last Admin: 11/08/16 18:46 Dose: 10 mg Insulin Human Regular (Humulin R High) 0 units SC ACHS [facility] PRN Reason: Protocol Last Admin: 11/09/16 21:35 Dose: Not Given Lisinopril (Zestril) 80 mg PO DAILY [facility] Last Admin: 11/09/16 11:08 Dose: 80 mg Multivitamins (Thera Tab) 1 tab PO 0800 [facility] Last Admin: 11/09/16 09:28 Dose: 1 tab Nystatin (Nystop Topical Powder) 0 gm TOP BID [facility] Last Admin: 11/09/16 11:11 Dose: 1 gm Pantoprazole Sodium (Protonix Ec Tab) 40 mg PO ACB [facility] Last Admin: 11/09/16 09:28 Dose: 40 mg Primidone (Mysoline) 50 mg PO DAILY [facility] Last Admin: 11/09/16 11:07 Dose: 50 mg Sertraline HCl (Zoloft) 25 mg PO HS [facility] Last Admin: 11/09/16 21:38 Dose: 25 mg Sevelamer HCl (Renagel) 800 mg PO WM [facility] Last Admin: 11/09/16 17:40 Dose: 800 mg Warfarin Sodium (Coumadin) 4 mg PO 1800 [facility] PRN Reason: Protocol Last Admin: 11/09/16 18:11 Dose: 4 mg Zinc Sulfate (Zinc Sulfate 220 Mg Cap) 220 mg PO DAILY [facility] Last Admin: 11/09/16 11:06 Dose: 220 mg - Labs Labs: 11/10/16 06:00 11/10/16 06:00 PT 13.2 Seconds (9.9-11.8) H 11/07/16 07:00 INR 1.22 (0.93-1.08) H 11/07/16 07:00 APTT 36.0 Seconds (23.7-30.8) H 11/07/16 07:00 - Constitutional Appears: Non-toxic, No Acute Distress - Head Exam Head Exam: NORMAL INSPECTION - ENT Exam ENT Exam: Mucous Membranes Moist - Neck Exam Neck Exam: absent: Lymphadenopathy, Meningismus - Respiratory Exam Respiratory Exam: Decreased Breath Sounds - Cardiovascular Exam Cardiovascular Exam: +S1, +S2 - GI/Abdominal Exam GI & Abdominal Exam: Soft. absent: Tenderness Assessment and Plan - Assessment and Plan (Free Text) Plan: Assessment sacral decubitus ulcer, currently unstageable, R/O infection peripheral arterial disease history of left foot ulcer, which grew E. faecalis, E. 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 local wound care) and short course of systemic antibiotics angioplasty has been done on the left leg - continue antibiotics to treat the left leg heel ulcer with probable infection
--- NOTE | 2016-11-10 23:59 | PN ---
DATE: 11/10/2016 SUBJECTIVE: The patient is seen in room 368, bed 1. The patient was seen and examined with the medical residents. For further details of today's progress note, please refer to the progress note done by the medical practice manager. The patient was seen and examined. The patient's vital signs, diagnostic data, all reviewed. IMPRESSION: 1. Unstageable sacral decubitus ulcer. 2. Right above knee amputation. 3. Leukocytosis with granulocytosis. 4. Normocytic anemia. 5. Gait dysfunction. 6. Peripheral vascular disease. 7. Iron-deficiency anemia. 8. Escherichia coli pseudomonas aeruginosa, left foot ulceration and cellulitis. 9. End-stage renal dialysis, hemodialysis-dependent. 10. Antiphospholipid antibody syndrome. 11. Hypertension. 12. Diabetes mellitus. 13. B negative blood type. 14. Left foot big toe amputation. 15. Hypertensive cardiovascular disease and left ventricular hypertrophy. 16. Left heel ulceration. 17. Left heel hemorrhagic Negron grade 2 ulceration. 18. Sacral decubitus ulceration. 19. Coronary artery disease, status post coronary artery bypass graft. 20. History of anxiety and depression. 21. Depression. 22. Neuropathy. 23. Secondary hyperparathyroidism. 24. History of parkinsonism. 25. Anxiety disorder. PLAN: At this time, I have discussed the patient's case with the medical practice manager. I have him to keep an eye on the leukocytosis and anemia and if patient needs transfusion, PRBC should be given. The patient has been ordered to repeat urine culture, current consultation. The patient is currently being followed by surgery, podiatry, infectious disease, nephrology, interventional radiology, and neurology. CURRENT MEDICATIONS: Hydralazine 10 mg IV q.6 hours p.r.n. and hydralazine 100 mg p.o. q.8 hours, Cardura 1 mg daily, clonidine 0.3 mg 3 times a day, amiodarone 200 mg daily, Coreg 6.25 mg twice a day, Coumadin 4 mg daily, DuoNeb nebulizer every 6 hours, Ecotrin 81 mg daily, Humulin R regular insulin sliding scale coverage, Lexapro 10 mg daily, Lipitor 80 mg daily, primidone 50 mg daily, Neurontin 100 mg twice a day, Norvasc 10 mg daily, nystatin powder twice a day, PhosLo 667 mg with meals, Protonix 40 mg daily, Renagel 800 mg with meals, Santyl daily, Sinemet 10/100 mg 3 times a day, multivitamin 1 table daily, Tylenol 650 q.6 hours p.r.n., vitamin C 500 mg daily, Xanax 0.5 mg 3 times a day, Zestril 80 mg daily, zinc sulfate 220 mg daily, Zoloft 50 mg at bedtime. MRI of the brain is pending, ordered by neurology, results are pending. The patient is on dysphagia modified consistency diet. At present, the patient is to be continued on above therapeutic intervention. The patient's IV antibiotics will be continued as per the infectious disease, as per infectious disease recommendation and podiatry management. At present, the patient is to be continued on above therapeutic intervention as discussed. Dictated and electronically signed, not read. Signing off, Vignesh Santiago MD Vignesh Santiago MD
[2016-11-11] MEDS: Albuterol-Ipratrop 3 mg / 0.5 (3 ml) UD IH SCH ×4 (02:19→19:55)
[2016-11-11 06:55] LABS: BASO # 0.04 K/mm3 (0.0-2.0); BASO % 0.4 % (0.0-3.0); EOS # 0.4 (0.0-0.7); GRAN # 8.74 (1.4-6.5); GRAN % 81.6 % (50.0-68.0); HEMOGLOBIN 8.8 g/dL (12.0-16.0); MEAN CELL VOLUME 83.6 fl (80.0-105.0); MEAN CORPUSCULAR HEMOGLOBIN 25.4 pg (25.0-35.0); MEAN CORPUSCULAR HGB CONC 30.3 g/dl (31.0-37.0); MEAN PLATELET VOLUME 9.7 fl (7.0-11.0); MONO # 0.5 (0.1-0.6); PLATELET COUNT 218 10^3/uL (120.0-450.0); RBC 3.47 10^6/uL (3.5-6.1); RED CELL DISTRIBUTION WIDTH 17.4 % (11.5-14.5); WHITE BLOOD COUNT 10.7 10^3/ul (4.5-11.0)
[2016-11-11 06:57] LABS: INR 1.19 (0.93-1.08); PROTHROMBIN TIME 12.8 Seconds (9.9-11.8)
[2016-11-11 07:03] LABS: ALB/GLOB RATIO 0.9 (1.1-1.8); ALBUMIN 3.2 g/dL (3.0-4.8); CALCIUM 10.2 mg/dL (8.4-10.5)
[2016-11-11] MEDS: Pantoprazole 40 mg EC Tab PO SCH (08:59)
[2016-11-11] MEDS: Multivitamin Therapeutic Tab PO SCH (08:59)
[2016-11-11] MEDS: Insulin Reg-HIGH-Coverage SC SCH ×4 (09:00→16:55)
[2016-11-11] MEDS: Collagenase 250 Units/gm Ointment(30 gm) TOP SCH (09:19)
[2016-11-11] MEDS: Nystatin 100,000 Units/gm Topical Pow(15 gm) TOP SCH ×2 (09:19→17:48)
--- NOTE | 2016-11-11 09:49 | CP.PCM.PN ---
Subjective - Date & Time of Evaluation Date of Evaluation: 11/11/16 Time of Evaluation: 09:30 - Subjective Subjective: 66 year old female seen at bedside concerning left heel deep tissue injury and ulcer. She states that pain in her foot is decreased and denies any acute overnight events.Multipodus boot in place this morning. Patient denies any further pedal complaints at this time. Patient denies N/V/F/C/CP/SOB Objective - Vital Signs/Intake and Output Vital Signs (last 24 hours): Temp Pulse Resp BP Pulse Ox 97.9 F 58 L 20 183/61 H 98 11/11/16 08:00 11/11/16 08:00 11/11/16 08:00 11/11/16 09:04 11/11/16 08:00 Intake and Output: 11/11/16 11/11/16 06:59 18:59 Intake Total 0 Output Total 0 Balance 0 - Medications Medications: Current Medications Acetaminophen (Tylenol 325mg Tab) 650 mg PO Q6H PRN PRN Reason: Fever >100.4 F Last Admin: 11/10/16 20:37 Dose: 650 mg Albuterol/Ipratropium (Duoneb 3 Mg/0.5 Mg (3 Ml) Ud) 3 ml IH [id number] [facility] Last Admin: 11/11/16 07:42 Dose: 3 ml Alprazolam (Xanax) 0.5 mg PO TID [facility] Last Admin: 11/11/16 09:05 Dose: 0.5 mg Amiodarone HCl (Cordarone) 200 mg PO DAILY [facility] Last Admin: 11/11/16 09:05 Dose: 200 mg Amlodipine Besylate (Norvasc) 10 mg PO DAILY [facility] Last Admin: 11/11/16 09:04 Dose: 10 mg Ascorbic Acid (Vitamin C 500 Mg Tab) 500 mg PO DAILY [facility] Last Admin: 11/11/16 09:04 Dose: 500 mg Aspirin (Ecotrin) 81 mg PO DAILY [facility] Last Admin: 11/11/16 09:05 Dose: 81 mg Atorvastatin Calcium (Lipitor) 80 mg PO DIN [facility] Last Admin: 11/10/16 17:54 Dose: 80 mg Calcium Acetate (Phoslo) 667 mg PO WM [facility] Last Admin: 11/11/16 08:59 Dose: 667 mg Carbidopa/Levodopa (Sinemet 10/100) 1 tab PO TID [facility] Last Admin: 11/11/16 09:05 Dose: 1 tab Carvedilol (Coreg) 6.25 mg PO Q12 [facility] Last Admin: 11/11/16 09:05 Dose: 6.25 mg Clonidine HCl (Catapres) 0.3 mg PO 0600,1400,2200 [facility] Last Admin: 11/11/16 06:04 Dose: 0.3 mg Collagenase (Santyl) 0 gm TOP DAILY [facility] Last Admin: 11/11/16 09:19 Dose: 3 applic Doxazosin Mesylate (Cardura) 1 mg PO 2200 [facility] Last Admin: 11/10/16 22:18 Dose: 1 mg Escitalopram Oxalate (Lexapro) 10 mg PO DAILY [facility] Last Admin: 11/11/16 09:04 Dose: 10 mg Gabapentin (Neurontin) 100 mg PO BID [facility] PRN Reason: Protocol Last Admin: 11/11/16 09:04 Dose: 100 mg Hydralazine HCl (Apresoline) 100 mg PO Q8H [facility] Last Admin: 11/11/16 02:58 Dose: 100 mg Hydralazine HCl (Apresoline) 10 mg IVP Q6 PRN PRN Reason: Systolic Blood Pressure Last Admin: 11/11/16 05:31 Dose: 10 mg Insulin Human Regular (Humulin R High) 0 units SC [facility] PRN Reason: Protocol Last Admin: 11/11/16 09:00 Dose: 2 units Lisinopril (Zestril) 80 mg PO DAILY [facility] Last Admin: 11/11/16 09:04 Dose: 80 mg Multivitamins (Thera Tab) 1 tab PO 0800 [facility] Last Admin: 11/11/16 08:59 Dose: 1 tab Nystatin (Nystop Topical Powder) 0 gm TOP BID [facility] Last Admin: 11/11/16 09:19 Dose: 1 gm Pantoprazole Sodium (Protonix Ec Tab) 40 mg PO ACB [facility] Last Admin: 11/11/16 08:59 Dose: 40 mg Primidone (Mysoline) 50 mg PO DAILY [facility] Last Admin: 11/11/16 09:04 Dose: 50 mg Sertraline HCl (Zoloft) 25 mg PO HS [facility] Last Admin: 11/10/16 22:28 Dose: 25 mg Sevelamer HCl (Renagel) 800 mg PO WM [facility] Last Admin: 11/11/16 08:59 Dose: 800 mg Warfarin Sodium (Coumadin) 4 mg PO 1800 [facility] PRN Reason: Protocol Last Admin: 11/10/16 17:55 Dose: 4 mg Zinc Sulfate (Zinc Sulfate 220 Mg Cap) 220 mg PO DAILY [facility] Last Admin: 11/11/16 09:04 Dose: 220 mg - Labs Labs: 11/11/16 06:30 11/11/16 06:30 PT 12.8 Seconds (9.9-11.8) H 11/11/16 06:30 INR 1.19 (0.93-1.08) H 11/11/16 06:30 APTT 36.0 Seconds (23.7-30.8) H 11/07/16 07:00 - Constitutional Appears: Well, Non-toxic, No Acute Distress - Extremities Exam Additional comments: Dressing clean, dry, and intact to left LLE. RLE is absent due to prior below knee amputation. Neuro-vascular status grossly diminished to left lower extremity at level of digits. DERM:Unstagable necrotic eschar 1.8 x1.5. No noted tract to bone. Non- blanchable erythema noted. Mild edema noted, no abscess or pus noted, minimal drainage on the dressing. - Neurological Exam Neurological Exam: Alert, Awake Assessment and Plan - Assessment and Plan (Free Text) Assessment: 66 year old female with 1) Non-stagable ischemic eschar to left heel. Plan: Pt seen and evaluated at bedside Chart, labs, and vitals reviewed; afebrile WBC 10.7 Dressed wound with santyl and DSD. Pt to continue offloading left lower extremity in multipodis boot while in bed. Continue IV antibiotics as per ID - Reviewed vascular angioplasty finding and state of intervention from 11/07/16 procedure. Scan showed left pedal vascular is supplied by anterior tibial artery , Posterior tibial and plantar arch arteries are occluded. 3.0mm angio-ballon was placed in popliteal artery, and prior fem-pop bypass graft remains patent. -Discussed patient with Vascular Specialist, Dr. Morris, who recommends gentle debridement of eschar as pt is s/p revascularization. . Podiatry will continue to follow while in house.
--- NOTE | 2016-11-11 10:11 | PN ---
DATE: 11/11/2016 SUBJECTIVE: The patient has no complaints of any chest pain, no shortness of breath, no headaches or dizziness. PHYSICAL EXAMINATION: VITAL SIGNS: Temperature is 97.9, pulse of 58, blood pressure is 183/61, and respirations 20. GENERAL: The patient is lying in bed, flat, comfortable. HEENT: No oral lesion. Anicteric sclerae. Moist mucosa. NECK: No JVD, adenopathy, or thyromegaly. CARDIOVASCULAR: S1 and S2, regular. No murmurs, rubs, or gallops. LUNGS: Clear to auscultation bilaterally. No wheeze, rales, or rhonchi. ABDOMEN: Bowel sounds are positive, soft, nontender and nondistended. EXTREMITIES: No cyanosis, clubbing or edema. LABORATORY DATA: White count of 10.7, creatinine is 3.9. ASSESSMENT: 1. End-stage renal disease, on hemodialysis. 2. Peripheral arterial disease. 3. Secondary hypoparathyroidism. 4. Sacral pressure ulcer. 5. Left heel ulcer. 6. Hypertension. 7. Parkinson. 8. Deep vein thrombosis/antiphospholipid antibody, on anticoagulation with Coumadin. 9. Left renal cyst. 10. Chronic anemia, multifactorial. 11. Right below knee amputation. 12. Resistant hypertension. 13. Noncompliance. PLAN: The patient is currently Comfortable. She is getting dialysis. The patient is on multiple blood pressure medications with hydralazine, Cardura, lisinopril and clonidine. The patient is on Coumadin for anticoagulation; she is on Lipitor for dyslipidemia. She is on gabapentin for neuropathy. The patient is on Protonix daily and Sinemet for her Parkinson's. Bebo Eller MD
--- NOTE | 2016-11-11 10:34 | MRI ---
PROCEDURE: MRI BRAIN WITHOUT CONTRAST HISTORY: ams COMPARISON: 10/07/2016 MRI TECHNIQUE: Multiplanar, multisequence MR images of the brain were obtained without intravenous contrast enhancement. FINDINGS: HEMORRHAGE: None DWI: No evidence of an acute or early subacute infarction. BRAIN PARENCHYMA: No mass effect or edema. No atrophy or chronic microvascular ischemic changes. VENTRICLES: Unremarkable. No hydrocephalus. CRANIUM: Unremarkable. ORBITS: Grossly unremarkable. PARANASAL SINUSES/MASTOIDS: There is minimal fluid in the mastoid air cells bilaterally VASCULAR SYSTEM: Skull base flow voids intact. OTHER FINDINGS: None. IMPRESSION: No acute intracranial findings
[2016-11-11] MEDS: Piperacillin/Tazobact 2.25gm 2.25 GM/100 ML BAG IVPB SCH ×2 (11:32→17:46)
--- NOTE | 2016-11-11 12:47 | CP.PCM.PN ---
<Vimal Hager - Last Filed: 11/11/16 12:44> Subjective - Date & Time of Evaluation Date of Evaluation: 11/11/16 Time of Evaluation: 12:44 - Subjective Subjective: Progress Note for Dr. Soriano Pt seen and examined at bedside. No acute events overnight. Pt currently at baseline. Objective - Vital Signs/Intake and Output Vital Signs (last 24 hours): Temp Pulse Resp BP Pulse Ox 97.9 F 58 L 20 183/61 H 98 11/11/16 08:00 11/11/16 08:00 11/11/16 08:00 11/11/16 09:04 11/11/16 08:00 Intake and Output: 11/11/16 11/11/16 06:59 18:59 Intake Total 0 Output Total 0 Balance 0 - Medications Medications: Current Medications Acetaminophen (Tylenol 325mg Tab) 650 mg PO Q6H PRN PRN Reason: Fever >100.4 F Last Admin: 11/10/16 20:37 Dose: 650 mg Albuterol/Ipratropium (Duoneb 3 Mg/0.5 Mg (3 Ml) Ud) 3 ml IH [id number] [facility] Last Admin: 11/11/16 07:42 Dose: 3 ml Alprazolam (Xanax) 0.5 mg PO TID [facility] Last Admin: 11/11/16 09:05 Dose: 0.5 mg Amiodarone HCl (Cordarone) 200 mg PO DAILY [facility] Last Admin: 11/11/16 09:05 Dose: 200 mg Amlodipine Besylate (Norvasc) 10 mg PO DAILY [facility] Last Admin: 11/11/16 09:04 Dose: 10 mg Ascorbic Acid (Vitamin C 500 Mg Tab) 500 mg PO DAILY [facility] Last Admin: 11/11/16 09:04 Dose: 500 mg Aspirin (Ecotrin) 81 mg PO DAILY [facility] Last Admin: 11/11/16 09:05 Dose: 81 mg Atorvastatin Calcium (Lipitor) 80 mg PO DIN [facility] Last Admin: 11/10/16 17:54 Dose: 80 mg Calcium Acetate (Phoslo) 667 mg PO WM [facility] Last Admin: 11/11/16 08:59 Dose: 667 mg Carbidopa/Levodopa (Sinemet 10/100) 1 tab PO TID [facility] Last Admin: 11/11/16 09:05 Dose: 1 tab Carvedilol (Coreg) 6.25 mg PO Q12 [facility] Last Admin: 11/11/16 09:05 Dose: 6.25 mg Clonidine HCl (Catapres) 0.3 mg PO 0600,1400,2200 [facility] Last Admin: 11/11/16 06:04 Dose: 0.3 mg Collagenase (Santyl) 0 gm TOP DAILY [facility] Last Admin: 11/11/16 09:19 Dose: 3 applic Doxazosin Mesylate (Cardura) 1 mg PO 2200 [facility] Last Admin: 11/10/16 22:18 Dose: 1 mg Escitalopram Oxalate (Lexapro) 10 mg PO DAILY [facility] Last Admin: 11/11/16 09:04 Dose: 10 mg Gabapentin (Neurontin) 100 mg PO BID [facility] PRN Reason: Protocol Last Admin: 11/11/16 09:04 Dose: 100 mg Hydralazine HCl (Apresoline) 100 mg PO Q8H [facility] Last Admin: 11/11/16 02:58 Dose: 100 mg Hydralazine HCl (Apresoline) 10 mg IVP Q6 PRN PRN Reason: Systolic Blood Pressure Last Admin: 11/11/16 05:31 Dose: 10 mg Piperacillin Sod/Tazobactam Sod (Zosyn 2.25 Gm In 0.9% 100 Ml) 2.25 gm in 100 mls @ 100 mls/hr IVPB Q6 [facility] PRN Reason: Protocol Stop: 11/11/16 18:59 Last Admin: 11/11/16 11:32 Dose: 100 mls/hr Insulin Human Regular (Humulin R High) 0 units SC ACHS [facility] PRN Reason: Protocol Last Admin: 11/11/16 11:33 Dose: 2 units Lisinopril (Zestril) 80 mg PO DAILY [facility] Last Admin: 11/11/16 09:04 Dose: 80 mg Multivitamins (Thera Tab) 1 tab PO 0800 [facility] Last Admin: 11/11/16 08:59 Dose: 1 tab Nystatin (Nystop Topical Powder) 0 gm TOP BID [facility] Last Admin: 11/11/16 09:19 Dose: 1 gm Pantoprazole Sodium (Protonix Ec Tab) 40 mg PO ACB [facility] Last Admin: 11/11/16 08:59 Dose: 40 mg Primidone (Mysoline) 50 mg PO DAILY [facility] Last Admin: 11/11/16 09:04 Dose: 50 mg Sertraline HCl (Zoloft) 25 mg PO HS [facility] Last Admin: 11/10/16 22:28 Dose: 25 mg Sevelamer HCl (Renagel) 800 mg PO WM [facility] Last Admin: 11/11/16 08:59 Dose: 800 mg Warfarin Sodium (Coumadin) 4 mg PO 1800 [facility] PRN Reason: Protocol Last Admin: 11/10/16 17:55 Dose: 4 mg Zinc Sulfate (Zinc Sulfate 220 Mg Cap) 220 mg PO DAILY [facility] Last Admin: 11/11/16 09:04 Dose: 220 mg - Labs Labs: 11/11/16 06:30 11/11/16 06:30 PT 12.8 Seconds (9.9-11.8) H 11/11/16 06:30 INR 1.19 (0.93-1.08) H 11/11/16 06:30 APTT 36.0 Seconds (23.7-30.8) H 11/07/16 07:00 - Constitutional Appears: Non-toxic, No Acute Distress - Head Exam Head Exam: ATRAUMATIC, NORMAL INSPECTION, NORMOCEPHALIC - Respiratory Exam Respiratory Exam: Clear to Ausculation Bilateral, NORMAL BREATHING PATTERN. absent: Rales, Rhonchi, Wheezes - Cardiovascular Exam Cardiovascular Exam: RRR, +S1, +S2 - GI/Abdominal Exam GI & Abdominal Exam: Soft, Normal Bowel Sounds. absent: Tenderness - Extremities Exam Extremities Exam: absent: Calf Tenderness, Pedal Edema - Neurological Exam Neurological Exam: Alert, Awake Additional comments: At baseline - Skin Skin Exam: Intact, Normal Color, Warm Assessment and Plan - Assessment and Plan (Free Text) Plan: 66 y/o F with PMH of ESRD, CAD s/p CABG, seizures, depression, GERD, CHF, IDDM, Parkinsons, DVTs, antiphospholipid syndrome, and CVA initially admitted for hypertensive emergency in the setting of AMS. Patient's altered state can be secondary to elevated blood pressures or due to toxic encephalopathy. Brain MRI negative at this time. Plan: Brain MRI negative Goal SBP 130-140 Monitor for signs of infection Avoid sedative medications Monitor electrolytes Continue current neurological medications Madan, PGY-2 <Gatito Soriano - Last Filed: 11/11/16 13:44> Objective - Vital Signs/Intake and Output Vital Signs (last 24 hours): Temp Pulse Resp BP Pulse Ox 97.9 F 58 L 20 183/61 H 98 11/11/16 08:00 11/11/16 08:00 11/11/16 08:00 11/11/16 09:04 11/11/16 08:00 Intake and Output: 11/11/16 11/11/16 06:59 18:59 Intake Total 0 Output Total 0 Balance 0 - Medications Medications: Current Medications Acetaminophen (Tylenol 325mg Tab) 650 mg PO Q6H PRN PRN Reason: Fever >100.4 F Last Admin: 11/10/16 20:37 Dose: 650 mg Albuterol/Ipratropium (Duoneb 3 Mg/0.5 Mg (3 Ml) Ud) 3 ml IH [id number] [facility] Last Admin: 11/11/16 13:05 Dose: 3 ml Alprazolam (Xanax) 0.5 mg PO TID [facility] Last Admin: 11/11/16 09:05 Dose: 0.5 mg Amiodarone HCl (Cordarone) 200 mg PO DAILY [facility] Last Admin: 11/11/16 09:05 Dose: 200 mg Amlodipine Besylate (Norvasc) 10 mg PO DAILY [facility] Last Admin: 11/11/16 09:04 Dose: 10 mg Ascorbic Acid (Vitamin C 500 Mg Tab) 500 mg PO DAILY [facility] Last Admin: 11/11/16 09:04 Dose: 500 mg Aspirin (Ecotrin) 81 mg PO DAILY [facility] Last Admin: 11/11/16 09:05 Dose: 81 mg Atorvastatin Calcium (Lipitor) 80 mg PO DIN [facility] Last Admin: 11/10/16 17:54 Dose: 80 mg Calcium Acetate (Phoslo) 667 mg PO WM [facility] Last Admin: 11/11/16 12:46 Dose: Not Given Carbidopa/Levodopa (Sinemet 10/100) 1 tab PO TID [facility] Last Admin: 11/11/16 09:05 Dose: 1 tab Carvedilol (Coreg) 6.25 mg PO Q12 [facility] Last Admin: 11/11/16 09:05 Dose: 6.25 mg Clonidine HCl (Catapres) 0.3 mg PO 0600,1400,2200 [facility] Last Admin: 11/11/16 06:04 Dose: 0.3 mg Collagenase (Santyl) 0 gm TOP DAILY [facility] Last Admin: 11/11/16 09:19 Dose: 3 applic Doxazosin Mesylate (Cardura) 1 mg PO 2200 [facility] Last Admin: 11/10/16 22:18 Dose: 1 mg Escitalopram Oxalate (Lexapro) 10 mg PO DAILY [facility] Last Admin: 11/11/16 09:04 Dose: 10 mg Gabapentin (Neurontin) 100 mg PO BID [facility] PRN Reason: Protocol Last Admin: 11/11/16 09:04 Dose: 100 mg Hydralazine HCl (Apresoline) 100 mg PO Q8H [facility] Last Admin: 11/11/16 09:05 Dose: 100 mg Hydralazine HCl (Apresoline) 10 mg IVP Q6 PRN PRN Reason: Systolic Blood Pressure Last Admin: 11/11/16 05:31 Dose: 10 mg Piperacillin Sod/Tazobactam Sod (Zosyn 2.25 Gm In 0.9% 100 Ml) 2.25 gm in 100 mls @ 100 mls/hr IVPB Q6 [facility] PRN Reason: Protocol Stop: 11/11/16 18:59 Last Admin: 11/11/16 11:32 Dose: 100 mls/hr Insulin Human Regular (Humulin R High) 0 units SC ACHS [facility] PRN Reason: Protocol Last Admin: 11/11/16 11:33 Dose: 2 units Lisinopril (Zestril) 80 mg PO DAILY [facility] Last Admin: 11/11/16 09:04 Dose: 80 mg Multivitamins (Thera Tab) 1 tab PO 0800 [facility] Last Admin: 11/11/16 08:59 Dose: 1 tab Nystatin (Nystop Topical Powder) 0 gm TOP BID [facility] Last Admin: 11/11/16 09:19 Dose: 1 gm Pantoprazole Sodium (Protonix Ec Tab) 40 mg PO ACB [facility] Last Admin: 11/11/16 08:59 Dose: 40 mg Primidone (Mysoline) 50 mg PO DAILY [facility] Last Admin: 11/11/16 09:04 Dose: 50 mg Sertraline HCl (Zoloft) 25 mg PO HS [facility] Last Admin: 11/10/16 22:28 Dose: 25 mg Sevelamer HCl (Renagel) 800 mg PO WM [facility] Last Admin: 11/11/16 12:46 Dose: 800 mg Warfarin Sodium (Coumadin) 4 mg PO 1800 [facility] PRN Reason: Protocol Last Admin: 11/10/16 17:55 Dose: 4 mg Zinc Sulfate (Zinc Sulfate 220 Mg Cap) 220 mg PO DAILY [facility] Last Admin: 11/11/16 09:04 Dose: 220 mg - Labs Labs: 11/11/16 06:30 11/11/16 06:30 PT 12.8 Seconds (9.9-11.8) H 11/11/16 06:30 INR 1.19 (0.93-1.08) H 11/11/16 06:30 APTT 36.0 Seconds (23.7-30.8) H 11/07/16 07:00 Attending/Attestation - Attestation I have personally seen and examined this patient.: Yes I have fully participated in the care of the patient.: Yes I have reviewed all pertinent clinical information, including history, physical exam and plan: Yes
--- NOTE | 2016-11-11 14:47 | CP.PCM.PN ---
Subjective - Date & Time of Evaluation Date of Evaluation: 11/11/16 Time of Evaluation: 11:15 - Subjective Subjective: Comfortable, not in distress, afebrile. Objective - Vital Signs/Intake and Output Vital Signs (last 24 hours): Temp Pulse Resp BP Pulse Ox 97.9 F 58 L 20 183/61 H 98 11/11/16 08:00 11/11/16 08:00 11/11/16 08:00 11/11/16 09:04 11/11/16 08:00 Intake and Output: 11/11/16 11/11/16 06:59 18:59 Intake Total 0 Output Total 0 Balance 0 - Medications Medications: Current Medications Acetaminophen (Tylenol 325mg Tab) 650 mg PO Q6H PRN PRN Reason: Fever >100.4 F Last Admin: 11/10/16 20:37 Dose: 650 mg Albuterol/Ipratropium (Duoneb 3 Mg/0.5 Mg (3 Ml) Ud) 3 ml IH [id number] [facility] Last Admin: 11/11/16 07:42 Dose: 3 ml Alprazolam (Xanax) 0.5 mg PO TID [facility] Last Admin: 11/11/16 09:05 Dose: 0.5 mg Amiodarone HCl (Cordarone) 200 mg PO DAILY [facility] Last Admin: 11/11/16 09:05 Dose: 200 mg Amlodipine Besylate (Norvasc) 10 mg PO DAILY [facility] Last Admin: 11/11/16 09:04 Dose: 10 mg Ascorbic Acid (Vitamin C 500 Mg Tab) 500 mg PO DAILY [facility] Last Admin: 11/11/16 09:04 Dose: 500 mg Aspirin (Ecotrin) 81 mg PO DAILY [facility] Last Admin: 11/11/16 09:05 Dose: 81 mg Atorvastatin Calcium (Lipitor) 80 mg PO DIN [facility] Last Admin: 11/10/16 17:54 Dose: 80 mg Calcium Acetate (Phoslo) 667 mg PO WM [facility] Last Admin: 11/11/16 08:59 Dose: 667 mg Carbidopa/Levodopa (Sinemet 10/100) 1 tab PO TID [facility] Last Admin: 11/11/16 09:05 Dose: 1 tab Carvedilol (Coreg) 6.25 mg PO Q12 [facility] Last Admin: 11/11/16 09:05 Dose: 6.25 mg Clonidine HCl (Catapres) 0.3 mg PO 0600,1400,2200 [facility] Last Admin: 11/11/16 06:04 Dose: 0.3 mg Collagenase (Santyl) 0 gm TOP DAILY [facility] Last Admin: 11/11/16 09:19 Dose: 3 applic Doxazosin Mesylate (Cardura) 1 mg PO 2200 [facility] Last Admin: 11/10/16 22:18 Dose: 1 mg Escitalopram Oxalate (Lexapro) 10 mg PO DAILY [facility] Last Admin: 11/11/16 09:04 Dose: 10 mg Gabapentin (Neurontin) 100 mg PO BID [facility] PRN Reason: Protocol Last Admin: 11/11/16 09:04 Dose: 100 mg Hydralazine HCl (Apresoline) 100 mg PO Q8H [facility] Last Admin: 11/11/16 02:58 Dose: 100 mg Hydralazine HCl (Apresoline) 10 mg IVP Q6 PRN PRN Reason: Systolic Blood Pressure Last Admin: 11/11/16 05:31 Dose: 10 mg Insulin Human Regular (Humulin R High) 0 units SC ACHS [facility] PRN Reason: Protocol Last Admin: 11/11/16 09:00 Dose: 2 units Lisinopril (Zestril) 80 mg PO DAILY [facility] Last Admin: 11/11/16 09:04 Dose: 80 mg Multivitamins (Thera Tab) 1 tab PO 0800 [facility] Last Admin: 11/11/16 08:59 Dose: 1 tab Nystatin (Nystop Topical Powder) 0 gm TOP BID [facility] Last Admin: 11/11/16 09:19 Dose: 1 gm Pantoprazole Sodium (Protonix Ec Tab) 40 mg PO ACB [facility] Last Admin: 11/11/16 08:59 Dose: 40 mg Primidone (Mysoline) 50 mg PO DAILY [facility] Last Admin: 11/11/16 09:04 Dose: 50 mg Sertraline HCl (Zoloft) 25 mg PO HS [facility] Last Admin: 11/10/16 22:28 Dose: 25 mg Sevelamer HCl (Renagel) 800 mg PO WM [facility] Last Admin: 11/11/16 08:59 Dose: 800 mg Warfarin Sodium (Coumadin) 4 mg PO 1800 [facility] PRN Reason: Protocol Last Admin: 11/10/16 17:55 Dose: 4 mg Zinc Sulfate (Zinc Sulfate 220 Mg Cap) 220 mg PO DAILY [facility] Last Admin: 11/11/16 09:04 Dose: 220 mg - Labs Labs: 11/11/16 06:30 11/11/16 06:30 PT 12.8 Seconds (9.9-11.8) H 11/11/16 06:30 INR 1.19 (0.93-1.08) H 11/11/16 06:30 APTT 36.0 Seconds (23.7-30.8) H 11/07/16 07:00 - Constitutional Appears: Non-toxic, No Acute Distress - Head Exam Head Exam: NORMAL INSPECTION - ENT Exam ENT Exam: Mucous Membranes Moist - Neck Exam Neck Exam: absent: Lymphadenopathy, Meningismus - Respiratory Exam Respiratory Exam: Decreased Breath Sounds - Cardiovascular Exam Cardiovascular Exam: +S1, +S2 - GI/Abdominal Exam GI & Abdominal Exam: Soft. absent: Tenderness Assessment and Plan - Assessment and Plan (Free Text) Plan: Assessment sacral decubitus ulcer, currently unstageable, R/O infection peripheral arterial disease history of left foot ulcer, which grew E. faecalis, E. 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 local wound care) and short course of systemic antibiotics angioplasty has been done on the left leg - continue antibiotics to treat the left leg heel ulcer with probable infection - can be switched to PO antibiotics when ready for discharge
[2016-11-11 15:42] VITALS: BP 153/67; RESP 19; TEMP 98.2; O2SAT 100
[2016-11-11 17:52] VITALS: PULSE 52
[2016-11-11] MEDS ORDERED: Amoxicillin-Clav 500-125 mg Tab PO SCH (22:00)
== END 2016-11-11 22:14 | DRG 252 ==
LOC: ED 15:40 → ERH 17:55 → 3RNO 18:56 → 2RSO 11-07 20:39 → 3RNO 11-08 02:53
PROVIDERS: ADMIT Internal Medicine; ATTEND Internal Medicine
PROC: 047Q3ZZ Dilation of Left Anterior Tibial Artery, Percutaneous Approach (ICD-10-PCS; principal; 2016-11-07)
PROC: B40D1ZZ Plain Radiography of Aorta and Bilateral Lower Extremity Arteries using Low Osmolar Contrast (ICD-10-PCS; 2016-11-07)
DX: I16.0 Hypertensive urgency (principal); N18.6 End stage renal disease; L89.150 Pressure ulcer of sacral region, unstageable; G92 Toxic encephalopathy; D68.61 Antiphospholipid syndrome; E11.22 Type 2 diabetes mellitus with diabetic chronic kidney disease; E11.51 Type 2 diabetes mellitus with diabetic peripheral angiopathy without gangrene; E11.621 Type 2 diabetes mellitus with foot ulcer; N25.81 Secondary hyperparathyroidism of renal origin; L97.819 Non-pressure chronic ulcer of other part of right lower leg with unspecified severity; I13.2 Hypertensive heart and chronic kidney disease with heart failure and with stage 5 chronic kidney disease, or end stage renal disease; R13.10 Dysphagia, unspecified; L89.629 Pressure ulcer of left heel, unspecified stage; I50.9 Heart failure, unspecified; L97.529 Non-pressure chronic ulcer of other part of left foot with unspecified severity; K57.90 Diverticulosis of intestine, part unspecified, without perforation or abscess without bleeding; K21.9 Gastro-esophageal reflux disease without esophagitis; D50.9 Iron deficiency anemia, unspecified; D72.829 Elevated white blood cell count, unspecified; E11.69 Type 2 diabetes mellitus with other specified complication; E20.9 Hypoparathyroidism, unspecified; E87.6 Hypokalemia; G20 Parkinson's disease; F32.89 Other specified depressive episodes; F41.9 Anxiety disorder, unspecified; G62.9 Polyneuropathy, unspecified; I25.10 Atherosclerotic heart disease of native coronary artery without angina pectoris; Z95.5 Presence of coronary angioplasty implant and graft; N28.1 Cyst of kidney, acquired; R56.9 Unspecified convulsions; Z79.01 Long term (current) use of anticoagulants; Z79.4 Long term (current) use of insulin; Z79.82 Long term (current) use of aspirin; Z79.899 Other long term (current) drug therapy; Z86.718 Personal history of other venous thrombosis and embolism; Z86.73 Personal history of transient ischemic attack (TIA), and cerebral infarction without residual deficits; Z87.891 Personal history of nicotine dependence; Z89.611 Acquired absence of right leg above knee; Z89.511 Acquired absence of right leg below knee; Z91.19 Patient's noncompliance with other medical treatment and regimen; Z95.1 Presence of aortocoronary bypass graft; Z99.2 Dependence on renal dialysis; Z87.19 Personal history of other diseases of the digestive system; Z88.1 Allergy status to other antibiotic agents; Z91.018 Allergy to other foods; R40.2412 Glasgow coma scale score 13-15, at arrival to emergency department; R55 Syncope and collapse; B95.2 Enterococcus as the cause of diseases classified elsewhere; B96.20 Unspecified Escherichia coli [E. coli] as the cause of diseases classified elsewhere; B96.5 Pseudomonas (aeruginosa) (mallei) (pseudomallei) as the cause of diseases classified elsewhere; H26.9 Unspecified cataract; R41.0 Disorientation, unspecified; Z86.19 Personal history of other infectious and parasitic diseases; Z87.01 Personal history of pneumonia (recurrent); E78.5 Hyperlipidemia, unspecified; G31.83 Neurocognitive disorder with Lewy bodies; F02.80 Dementia in other diseases classified elsewhere, unspecified severity, without behavioral disturbance, psychotic disturbance, mood disturbance, and anxiety; R26.9 Unspecified abnormalities of gait and mobility; I70.202 Unspecified atherosclerosis of native arteries of extremities, left leg

== ENCOUNTER 2016-11-20 17:23 | Inpatient (IN) | payer MEDICARE, BC ==
[2016-11-20 17:31] VITALS: BMI 24.0
[2016-11-20 18:31] LABS: BASO # 0.04 K/mm3 (0.0-2.0); BASO % 0.2 % (0.0-3.0); EOS # 0.2 (0.0-0.7); EOS % 1.3 % (1.5-5.0); GRAN # 15.29 (1.4-6.5); GRAN % 87.3 % (50.0-68.0); LYMPH % 5.5 % (22.0-35.0); MEAN CELL VOLUME 83.6 fl (80.0-105.0); MEAN CORPUSCULAR HEMOGLOBIN 26.2 pg (25.0-35.0); MEAN CORPUSCULAR HGB CONC 31.3 g/dl (31.0-37.0); MEAN PLATELET VOLUME 10.4 fl (7.0-11.0); MONO % 5.7 % (1.0-6.0); RED CELL DISTRIBUTION WIDTH 19.2 % (11.5-14.5); WHITE BLOOD COUNT 17.5 10^3/ul (4.5-11.0)
[2016-11-20 18:35] LABS: ALB/GLOB RATIO 0.9 (1.1-1.8); BILIRUBIN,TOTAL 0.8 mg/dL (0.2-1.3); CALCIUM 10.4 mg/dL (8.4-10.5); POTASSIUM 4.3 mmol/L (3.6-5.0); TOTAL PROTEIN 7.8 g/dL (5.8-8.3)
--- NOTE | 2016-11-20 18:46 | CT ---
PROCEDURE: CT HEAD WITHOUT CONTRAST. HISTORY: AMS COMPARISON: Noncontrast head CT performed 11/02/16 TECHNIQUE: Axial computed tomography images were obtained through the head/brain without intravenous contrast. Radiation dose: Total exam DLP = 774.23 mGy-cm. This CT exam was performed using one or more of the following dose reduction techniques: Automated exposure control, adjustment of the mA and/or kV according to patient size, and/or use of iterative reconstruction technique. FINDINGS: HEMORRHAGE: No intracranial hemorrhage. BRAIN: Diffuse atrophy with prominence of the ventricles and sulci noted. No mass effect or edema. Intracranial atherosclerotic calcifications. Scattered white matter hypodensities, which are nonspecific, but often seen with chronic microvascular ischemic disease. Please note that MRI with diffusion imaging is more sensitive in the detection of acute ischemic event. VENTRICLES: No hydrocephalus. CALVARIUM: Unremarkable. PARANASAL SINUSES: Unremarkable as visualized. No significant inflammatory changes. MASTOID AIR CELLS: Unremarkable as visualized. No inflammatory changes. OTHER FINDINGS: Partial opacification of the right external auditory canal, likely cerumen. IMPRESSION: Generalized atrophy. Nonspecific white matter changes.
[2016-11-20 19:00] LABS: INR 6.54 (0.93-1.08); PARTIAL THROMBOPLASTIN TIME 76.5 Seconds (23.7-30.8)
--- NOTE | 2016-11-20 19:17 | ED PDOC ---
Arrival/HPI - General Chief Complaint: Abnormal Labs Time Seen by Provider: 11/20/16 17:43 Historian: Patient - History of Present Illness Narrative History of Present Illness (Text): 11/20/16 19:02 66yr old female presents today brought in by ambulance from detention for elevated INR and episodes of hypoglycemia. Patient complaining only of pain to her sacral region. Denies chest pain. Denies abdominal pain. Denies shortness of breath. Family states that the patient has sacral ulcer as well as a wound to the right thigh and left ankle. Family states the patient has a history of depression and has not been eating well. No vomiting or diarrhea. Symptom Onset: Gradual Symptom Course: Worsening Quality: Unable to Describe Past Medical History - Provider Review Nursing Documentation Reviewed: Yes - Travel History Have you recently traveled outside [place] w/in the past 3 mons?: No - Infectious Disease Hx of Infectious Diseases: None - Tetanus Immunization Tetanus Immunization: Unknown - Reproductive Menopause: Yes - Cardiac Hx Cardiac Disorders: Yes - Pulmonary Hx Respiratory Disorders: Yes - Neurological HX Cerebrovascular Accident: Yes - HEENT Hx HEENT Disorder: Yes Other/Comment: wear glasses,L ear [place] - Renal Hx Renal Disorder: Yes Hx Dialysis: Yes ([facility] T,TH,SAT) Date of Last Dialysis Treatment: 10/01/16 Hx Renal Failure: Yes - Endocrine/Metabolic Hx Diabetes Mellitus Type 2: Yes - Hematological/Oncological Hx Blood Disorders: Yes - Integumentary Hx Dermatological Disorder: Yes Other/Comment: L great toe amputated,RT BKA - Musculoskeletal/Rheumatological Hx Musculoskeletal Disorders: Yes Hx Falls: No Other/Comment: RT BKA - Gastrointestinal Hx Gastroesophageal Reflux: Yes - Genitourinary/Gynecological Hx Genitourinary Disorders: No - Psychiatric Hx Psychophysiologic Disorder: Yes Hx Anxiety: Yes Hx Depression: Yes Hx Substance Use: No - Surgical History Hx Amputation: Yes (L Great toe.RT BKA) Hx Coronary Artery Bypass Graft: Yes Hx Open Heart Surgery: Yes - Anesthesia Hx Anesthesia: Yes Hx Anesthesia Reactions: No Hx Malignant Hyperthermia: No - Suicidal Assessment Feels Threatened In Home Enviroment: No Family/Social History - Physician Review Nursing Documentation Reviewed: Yes Family/Social History: Unknown Family HX Smoking Status: Former Smoker Hx Alcohol Use: No Hx Substance Use: No Hx Substance Use Treatment: No Allergies/Home Meds Allergies/Adverse Reactions: Allergies ciprofloxacin Allergy (Verified 11/20/16 17:31) SWELLING hallucination clarithromycin [From Biaxin] Allergy (Verified 11/20/16 17:31) SWELLING pepper Allergy (Verified 11/20/16 17:31) SWELLING Home Medications: Home Meds Medication Instructions Recorded Confirmed Aspirin [Aspirin EC] 81 mg PO DAILY 05/10/15 11/20/16 Clonidine HCl [Catapres] 0.3 mg PO BID 07/20/16 11/20/16 Primidone [Mysoline] 50 mg PO DAILY 07/20/16 11/20/16 Amiodarone HCl [Pacerone] 200 mg PO DAILY 08/08/16 11/20/16 Gabapentin [Neurontin] 100 mg PO BID 08/08/16 11/20/16 Sertraline [Zoloft] 25 mg PO HS 08/08/16 11/20/16 Sevelamer [Renagel] 800 mg PO TID 08/08/16 11/20/16 Zinc [Zinc Sulfate 220 mg Cap] 220 mg PO DAILY 08/08/16 11/20/16 Omeprazole 20 mg PO DAILY 08/29/16 11/20/16 Albuterol/Ipratropium [Duoneb 3 3 ml IH Q6H PRN 10/01/16 11/20/16 mg/0.5 mg (3 ml) UD] Alprazolam [Xanax] 0.5 mg PO TID PRN 10/01/16 11/20/16 Carvedilol [Coreg] 6.25 mg PO Q12 10/01/16 11/20/16 oxyCODONE [oxyCODONE Immediate 15 tab PO QID PRN 10/01/16 11/20/16 Release Tab] Carbidopa/Levodopa 10/100 [Sinemet 1 tab PO TID 11/20/16 11/20/16 10/100] Insulin Lispro [humALOG] 2 units SC ACHS 11/20/16 11/20/16 Review of Systems - Review of Systems Constitutional: absent: Fevers Respiratory: absent: SOB Cardiovascular: absent: Chest Pain Gastrointestinal: Appetite Changes. absent: Abdominal Pain, Diarrhea, Vomiting Musculoskeletal: Arthralgias Skin: Skin Lesions (sacral, right leg, left ankle) Psychiatric: Depression (hx of) Physical Exam Vital Signs Reviewed: Yes Vital Signs Temp Pulse Resp BP Pulse Ox 11/20/16 20:08 73 19 97 11/20/16 19:02 98.9 F 11/20/16 17:34 98.7 F 72 24 189/80 H 97 11/20/16 17:32 69 16 189/80 H 96 Temperature: Afebrile Blood Pressure: Hypertensive Pulse: Regular Respiratory Rate: Normal Appearance: Positive for: Well-Appearing, Non-Toxic, Comfortable Pain Distress: None Mental Status: Positive for: Alert and Oriented X 3 Finger Stick Blood Glucose: 115 - Systems Exam Head: Present: Atraumatic Mouth: Present: Moist Mucous Membranes Respiratory/Chest: Present: Clear to Auscultation Cardiovascular: Present: Regular Rate and Rhythm Abdomen: Present: Normal Bowel Sounds. No: Tenderness, Distention, Peritoneal Signs, Rebound, Guarding Back: Present: Decubitus Ulcer (+ sacral ulcer with foul smell with surrounding erythema.) Upper Extremity: Present: Normal ROM Lower Extremity: Present: Other (+ right leg; there is erythematous wound on right anterior knee. wound on left ankle.) Skin: Present: Warm, Dry Psychiatric: Present: Alert Medical Decision Making ED Course and Treatment: 11/20/16 21:59 66-year-old female with stable vital signs sent in by detention for evaluation of elevated INR and intermittent hypoglycemia with decreased appetite finger stick; 115 CBC White blood cell count 17.9 CMP BUN 31 creatinine 4.0 potassium 4.3 Chest x-ray no infiltrate or effusion UA: trace leukocytes, yeast, few bacteria INR: 6.5 wound culture collected from sacral wound; ekg; normal sinus rhythm at [address] elevations, LVH head CT; FINDINGS: HEMORRHAGE: No intracranial hemorrhage. BRAIN: Diffuse atrophy with prominence of the ventricles and sulci noted. No mass effect or edema. Intracranial atherosclerotic calcifications. Scattered white matter hypodensities, which are nonspecific, but often seen with chronic microvascular ischemic disease. Please note that MRI with diffusion imaging is more sensitive in the detection of acute ischemic event. VENTRICLES: No hydrocephalus. CALVARIUM: Unremarkable. PARANASAL SINUSES: Unremarkable as visualized. No significant inflammatory changes. MASTOID AIR CELLS: Unremarkable as visualized. No inflammatory changes. OTHER FINDINGS: Partial opacification of the right external auditory canal, likely cerumen. IMPRESSION: Generalized atrophy. Nonspecific white matter changes. pt with leukocytosis with sacral ulcer, with foul smelling discharge. ? source of infection; pt with elevated INR; no signs of trauma; negative CT of head, heme negative stools. blood and urine cultures pending. teflaro started IV. 11/20/16 22:[address] herring; covering for dr. estrada; accepts admission. case discussed with resident. impression; leukocytosis, sacral ulcer, elevated iNR admit to med/surg - Lab Interpretations Lab Results: 11/20/16 18:03 11/20/16 18:03 Lab Results 11/20/16 19:40: Urine Color Yellow, Urine Appearance Sl cloudy, Urine pH 8.0, Ur Specific [place] 1.020, Urine Protein >=300 H, Urine Glucose (UA) 100 H, Urine Ketones Negative, Urine Blood Trace-lysed H, Urine Nitrate Negative, Urine Bilirubin Negative, Urine Urobilinogen 0.2, Ur Leukocyte Esterase Trace H , Urine RBC 2 - 5, Urine WBC 2 - 5, Ur Epithelial Cells Many, Urine Bacteria Few , Urine Other Uyeast 11/20/16 18:03: Blood Type B NEGATIVE, Antibody Screen Negative, BBK History Checked Patient has bt 11/20/16 18:03: WBC 17.5 H D, RBC 3.59, Hgb 9.4 L, Hct 30.0 L, MCV 83.6, MCH 26.2, MCHC 31.3, RDW 19.2 H, Plt Count 444, MPV 10.4, Gran % 87.3 H, Lymph % ( Auto) 5.5 L, [place] % (Auto) 5.7, Eos % (Auto) 1.3 L, Baso % (Auto) 0.2, Gran # 15.29 H, Lymph # 1.0 L, [place] # 1.0 H, Eos # 0.2, Baso # 0.04 11/20/16 18:03: Sodium 140, Potassium 4.3, Chloride 98, Carbon Dioxide 30, Anion Gap 16, BUN 31 H, Creatinine 4.0 H, Est GFR ( Amer) 14, Est GFR ( Non-Af Amer) 11, Random Glucose 85, Calcium 10.4, Total Bilirubin 0.8, AST 34, ALT 13, Alkaline Phosphatase 142 H, Total Protein 7.8, Albumin 3.6, Globulin 4.2 , Albumin/Globulin Ratio 0.9 L 11/20/16 18:03: PT 70.6 H*, INR 6.54 H*, APTT 76.5 H* 11/20/16 17:55: POC Glucose (mg/dL) 115 H - RAD Interpretation Radiology Orders: 11/20/16 17:52 CHEST PORTABLE [RAD] Stat 11/20/16 17:56 HEAD W/O CONTRAST [CT] Stat 11/20/16 20:31 ABD & PELVIS W/O PO OR IV CONT [CT] Stat - Medication Orders Current Medication Orders: Discontinued Medications Ceftaroline Fosamil 200 mg/ (Sodium Chloride) 50 mls @ 50 mls/hr IVPB STAT STA PRN Reason: Protocol Stop: 11/20/16 20:23 Last Admin: 11/20/16 20:13 Dose: 50 mls/hr Disposition/Present on Arrival - Present on Arrival Any Indicators Present on Arrival: No History of DVT/PE: No History of Uncontrolled Diabetes: No Urinary Catheter: No History of Decub. Ulcer: No History Surgical Site Infection Following: None - Disposition Have Diagnosis and Disposition been Completed?: Yes Diagnosis: Decubitus skin ulcer, Leukocytosis, Elevated INR, ESRD on dialysis Disposition: HOSPITALIZED Disposition Time: 22:00 Patient Plan: Admission Condition: FAIR Referrals: Bebo Eller MD [Primary Care Provider] - Follow up with primary Forms: [employer] (Divehi)
[2016-11-20 20:05] LABS: URINE BILIRUBIN NEGATIVE (NEGATIVE); URINE BLOOD TRACE-LYSED (NEGATIVE); URINE GLUCOSE (UA) 100 mg/dL (NEGATIVE); URINE KETONE NEGATIVE (NEGATIVE); URINE LEUKOCYTE ESTERASE TRACE Leu/uL (NEGATIVE); URINE PROTEIN >=300 mg/dL (<30 mg/dL); URINE UROBILINOGEN 0.2 E.U./dL (<1 E.U./dL)
[2016-11-20 20:08] LABS: URINE APPEARANCE SL CLOUDY (CLEAR); URINE COLOR YELLOW (YELLOW)
[2016-11-20 20:22] LABS: URINE BACTERIA FEW (NEG); URINE EPITHELIAL CELLS MANY /hpf (0-5)
--- NOTE | 2016-11-20 22:30 | CP.PCM.HP ---
History of Present Illness - History of Present Illness History of Present Illness: Please note: patient is a poor historian. She was AO x 2 [self and place] and would not answer most questions on initial encounter. HPI: 66yo female PMHx of ESRD on HD, CAD s/p CABG, seizures, depression, GERD, CHF, IDDM, Parkinsons, DVTs and CVA secondary to antiphospholipid syndrome BIBA from care home for elevated INR and hypoglycemic episodes. Patient complained of pain in her sacral region on initial encounter but would not quantify or qualitate the pain. She has a sacral decubitus ulcer that is unsteageable and a wound to the right thigh and left ankle. Patient was seen on previous admission 11/03/15 for purulent drainage for sacral decubitus ulcer and HTN urgency. Patient is AO x [address] and was uncooperative with answering questions in length as she was nod her head and fall asleep. On limited ROS patient denied fever, chills, chest pain, SOB, abd pain, nausea, vomiting, bleeding, blood in her stool, numbness, or tingling. PMHx: ESRD on HD (T,, ), CAD s/p CABG, CVA, seizures, depression, GERD, CHF , IDDM, Parkinsons, DVTs, antiphospholipid syndrome PSurgHx: CABG, R BKA Meds: Please refer to MAR All: Cipro, Clarithro, Pepper SocHx: Denies EtOH or drug use. Former smoker FH: Non-contributory PHospitalization: recently admitted 11/02/16 for sacral decubitis ulcer as well as hypertensive urgency Present on Admission - Present on Admission Any Indicators Present on Admission: Yes History of DVT/PE: Yes History of Uncontrolled Diabetes: Yes Decubitus Ulcer Present: Yes Decubitus Ulcer Stage: Unstageable Review of Systems - Review of Systems Systems not reviewed;Unavailable: Other (limited) - Constitutional Constitutional: As Per HPI. absent: Chills, Fever - Cardiovascular Cardiovascular: As Per HPI. absent: Chest Pain, Dyspnea - Respiratory Respiratory: As Per HPI. absent: Cough, Dyspnea - Gastrointestinal Gastrointestinal: As Per HPI. absent: Abdominal Pain, Constipation, Diarrhea, Nausea, Vomiting - Musculoskeletal Musculoskeletal: As Per HPI. absent: Numbness, Tingling - Neurological Neurological: As Per HPI. absent: Dizziness, Headaches - Hematologic/Lymphatic Hematologic: As Per HPI. absent: Easy Bleeding Past Patient History - Infectious Disease Hx of Infectious Diseases: None - Tetanus Immunizations Tetanus Immunization: Unknown - Past Medical History & Family History Past Medical History?: Yes - Past Social History Smoking Status: Former Smoker - CARDIAC Hx Cardiac Disorders: Yes - PULMONARY Hx Respiratory Disorders: Yes - NEUROLOGICAL HX Cerebrovascular Accident: Yes - HEENT Hx HEENT Problems: Yes Other/Comment: wear glasses,L ear [place] - RENAL Hx Chronic Kidney Disease: Yes Hx Dialysis: Yes ([facility] T,TH,SAT) Date of Last Dialysis Treatment: 10/01/16 Hx Renal Failure: Yes - ENDOCRINE/METABOLIC Hx Diabetes Mellitus Type 2: Yes - HEMATOLOGICAL/ONCOLOGICAL Hx Blood Disorders: Yes - INTEGUMENTARY Hx Dermatological Problems: Yes Other/Comment: L great toe amputated,RT BKA - MUSCULOSKELETAL/RHEUMATOLOGICAL Hx Musculoskeletal Disorders: Yes Hx Falls: No Other/Comment: RT BKA - GASTROINTESTINAL Hx Gastroesophageal Reflux: Yes - GENITOURINARY/GYNECOLOGICAL Hx Genitourinary Disorders: No - PSYCHIATRIC Hx Psychophysiologic Disorder: Yes Hx Anxiety: Yes Hx Depression: Yes Hx Substance Use: No - SURGICAL HISTORY Hx Amputation: Yes (L Great toe.RT BKA) Hx Coronary Artery Bypass Graft: Yes Hx Open Heart Surgery: Yes - ANESTHESIA Hx Anesthesia: Yes Hx Anesthesia Reactions: No Hx Malignant Hyperthermia: No Meds Allergies/Adverse Reactions: Allergies Allergy/AdvReac Type Severity Reaction Status Date / Time ciprofloxacin Allergy SWELLING Verified 11/20/16 17:31 clarithromycin [From Biaxin] Allergy SWELLING Verified 11/20/16 17:31 pepper Allergy SWELLING Verified 11/20/16 17:31 Physical Exam - Constitutional Appears: No Acute Distress, Chronically Ill - Additional Findings Additional findings: Constitutional: chronically ill, NAD Head and Neck: neck supple, no jvd, trachea midline, carotid midline, no cervical/head mass Eyes: julio, nonicteric sclera ENT: no nasal deformity Cardio: rrr, no m/r/g, no carotid bruit, nml s1, s2 Pulm: no accessory muscle use, equal nml breath sounds bilaterally, ctab Abd: s/nt/nd, nbs x 4 q, no palpable masses Derm: See additional findings Extr: R sided BKA- dressing in place Neuro: AO x 2 [self and place] Additional: Sacral Decub ulcer- Unstagable 7x8cm; Right Patella- Stage 3 4x5; Left calcaneous- unstagable 3x3 Results - Vital Signs Recent Vital Signs: Last Vital Signs Temp 98.9 F 11/20/16 19:02 Pulse 73 11/20/16 20:08 Resp 19 11/20/16 20:08 BP 189/80 H 11/20/16 17:34 Pulse Ox 97 11/20/16 20:08 - Labs Result Diagrams: 11/20/16 18:03 11/20/16 18:03 Assessment & Plan - Assessment and Plan (Free Text) Assessment: 66yo female PMHx of ESRD on HD, CAD s/p CABG, seizures, depression, GERD, CHF, IDDM, Parkinsons, DVTs and CVA secondary to antiphospholipid syndrome BIBA from care home for elevated INR and hypoglycemic episodes Plan: Supratherapeutic INR - on admission INR 6.54 - no acute bleed at this time and H&H is stable as per prior medical records - hold Coumadin - recheck INR in AM Hypoglycemic episodes - on admission POCG 115 and random glucose 85 - Accucheck ACHS - RISS low dose - as per family, patient had decreased appetite - CT abd/pelvis ordered- f/u official read - Head CT ordered for AMS: no acute changes - hold basal insulin - Gabapentin 100mg po bid - Dietary consulted- f/u reccs Leukocytosis - 17.5 on admission - afebrile - likely sacral decubitus ulcer source - f/u wound culture, blood culture, urine culture - ID Dr. Wood consulted- f/u reccs Sacral decubitus ulcer - Afebrile, leukocytosis of 17.5 on admission - Unstageable ulceration - f/u wound culture - Zosyn 2.25 IVPB q8 started on 11/21 - multivitamin daily - Vitamin C 500mg po daily - Zinc 220mg po daily - ID Dr. 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 There is 1 vessel runoff via the left anterior tibial artery; L posterior tibial artery and plantar arch are occluded - collagenase foam dressing qdaily - continue Multipodus boots and offloading - Podiatry consulted- f/u reccs Hx of Anemia - likely anemia of chronic disease - Monitor H&H Hx of Hypertension - Amiodarone 200mg po daily - Norvasc 10mg po daily - Lisinopril 80mg po daily - Hydralazine 100mg po q8h - Coreg 6.25mg po q12 - Clonidine 0.3mg po bid - Monitor and adjust BP medications as needed Hx of ESRD on HD (//Fri) - Renagel 800mg po tid - Nephrology Dr Eller consulted- f/u reccs Hx of CAD s/p CABG - ASA 81mg po daily - Lipitor 80mg po hs Hx of Antiphospholipid syndrome - Coumadin on hold Hx of Depression and anxiety - Xanax 0.5mg po tid - Lexapro 10mg po daily Hx of Parkinsons - Primodone 50mg po daily - Sinemet 1 tab po daily DVT ppx: VTE ppx c/i secondary to supratherapeutic INR and SCDs c/i secondary to R BKA GI ppx: Pepcid 20mg po bid Diet: Heart healthy mod consistent carb renal dialysis diet PT/OT/Dietary ordered Case discussed with Dr. Jose Wall PGY2
[2016-11-20] MEDS ORDERED: Albuterol-Ipratrop 3 mg / 0.5 (3 ml) UD IH PRN (23:38)
[2016-11-20] MEDS ORDERED: Multivitamin Therapeutic Tab PO STA (23:51)
[2016-11-21] MEDS ORDERED: Pneumococcal 23-Valent Vaccine IM ONE (04:37)
[2016-11-21] MEDS: Piperacillin/Tazobact 2.25gm 2.25 GM/100 ML BAG IVPB SCH ×3 (07:10→21:55)
--- NOTE | 2016-11-21 07:32 | CT ---
PROCEDURE: CT Abdomen and Pelvis without intravenous contrast HISTORY: decreased appetite COMPARISON: 01/03/2016 TECHNIQUE: Without contrast.. Contrast Dose: 0 Radiation dose: Total exam DLP = 788.40 mGy-cm. This CT exam was performed using one or more of the following dose reduction techniques: Automated exposure control, adjustment of the mA and/or kV according to patient size, and/or use of iterative reconstruction technique. FINDINGS: LOWER THORAX: CARDIOMEGALY. CABG. LIVER: Unremarkable. No gross lesion or ductal dilatation. GALLBLADDER AND BILE DUCTS: Thickened gallbladder wall, nonspecific. Gallbladder is contracted. No calcified gallstones identified. PANCREAS: Unremarkable. No gross lesion or ductal dilatation. SPLEEN: Unremarkable. ADRENALS: Unremarkable. No mass. KIDNEYS AND URETERS: Left upper pole renal cortical cyst, 2.6 cm. This measures 11 Hounsfield units and is unchanged from prior examination. No other renal mass. No renal calculus or hydronephrosis. VASCULATURE: Unremarkable. No aortic aneurysm. BOWEL: Mild retained feces. No bowel obstruction. No abnormal bowel loops. APPENDIX: Unremarkable. Normal appendix. PERITONEUM: Unremarkable. No free fluid. No free air. LYMPH NODES: Unremarkable. No enlarged lymph nodes. BLADDER: Unremarkable. REPRODUCTIVE: Unremarkable uterus BONES: No fracture. Grade 1 anterolisthesis at L4-5 without evidence of spondylolysis. . Lumbar levoscoliosis. OTHER FINDINGS: Soft tissue density, ovoid, somewhat heterogeneous, in right inguinal region, likely a hematoma following attempt at right femoral catheterization. This measures 3.0 x 4.5 cm. Please correlate with history. Alternatively, this could represent inguinal lymphadenopathy though this is less likely. IMPRESSION: Probable right inguinal hematoma status post femoral venous catheterization attempt. Please correlate with history. Mildly thickened gallbladder wall, nonspecific. Stable left upper pole renal cyst. No other acute abnormality.
[2016-11-21 07:37] LABS: BASO # 0.04 K/mm3 (0.0-2.0); BASO % 0.3 % (0.0-3.0); EOS # 0.2 (0.0-0.7); EOS % 1.3 % (1.5-5.0); GRAN # 11.34 (1.4-6.5); GRAN % 86.3 % (50.0-68.0); HEMATOCRIT 26.5 % (36.0-48.0); LYMPH # 0.9 (1.2-3.4); LYMPH % 6.5 % (22.0-35.0); MEAN CELL VOLUME 82.8 fl (80.0-105.0); MEAN CORPUSCULAR HEMOGLOBIN 25.3 pg (25.0-35.0); MEAN CORPUSCULAR HGB CONC 30.6 g/dl (31.0-37.0); MONO # 0.7 (0.1-0.6); MONO % 5.6 % (1.0-6.0); WHITE BLOOD COUNT 13.1 10^3/ul (4.5-11.0)
[2016-11-21 07:47] LABS: ALB/GLOB RATIO 0.8 (1.1-1.8); BILIRUBIN,TOTAL 0.9 mg/dL (0.2-1.3); CALCIUM 9.8 mg/dL (8.4-10.5); MAGNESIUM 1.9 mg/dL (1.7-2.2); POTASSIUM 3.8 mmol/L (3.6-5.0); TOTAL PROTEIN 6.9 g/dL (5.8-8.3)
--- NOTE | 2016-11-21 07:55 | RAD ---
HISTORY: hypoglycemia/eleved INR COMPARISON: 11/09/2016 FINDINGS: LUNGS: No active pulmonary disease. PLEURA: No significant pleural effusion identified, no pneumothorax apparent. CARDIOVASCULAR: Sternotomy wires. CABG. Right tunneled central venous dialysis catheter. OSSEOUS STRUCTURES: No significant abnormalities. VISUALIZED UPPER ABDOMEN: Normal. OTHER FINDINGS: None. IMPRESSION: No active disease.
[2016-11-21] MEDS: Insulin Lispro (humaLOG) LOW Coverage SC SCH ×4 (08:20→22:30)
[2016-11-21 08:33] LABS: INR 6.75 (0.93-1.08); PARTIAL THROMBOPLASTIN TIME 82.1 Seconds (23.7-30.8)
[2016-11-21] MEDS ORDERED: Vancomycin 1gm in NS 250ml 1 GM/250 ML BAG IVPB STA (08:34)
--- NOTE | 2016-11-21 10:13 | CP.PCM.CON ---
<Tho Farias - Last Filed: 11/21/16 10:09> History of Present Illness - History of Present Illness History of Present Illness: 66 year old female patietn with PMHx of ESRD on HD, CAD s/p CABG, seizures, depression, GERD, CHF, IDDM, Parkinsons, DVTs and CVA was seen at bedside concerning left heel deep tissue injury and ulcer. Patient is well known to podiatry. She states that pain in her foot is decreased and denies any acute overnight events. Multipodus boot in place this morning. Patient denies any further pedal complaints at this time. Patient denies N/V/F/C/CP/SOB Past Patient History - Infectious Disease Hx of Infectious Diseases: None - Tetanus Immunizations Tetanus Immunization: Unknown - Past Medical History & Family History Past Medical History?: Yes - Past Social History Smoking Status: Former Smoker - CARDIAC Hx Cardiac Disorders: Yes Hx Congestive Heart Failure: Yes Other/Comment: Aortocoronary bypass graft 04/17/16 - PULMONARY Hx Respiratory Disorders: Yes - NEUROLOGICAL HX Cerebrovascular Accident: Yes Hx Parkinson's Disease: Yes - HEENT Hx HEENT Problems: Yes Other/Comment: wear glasses,L ear [place] - RENAL Hx Chronic Kidney Disease: Yes Hx Dialysis: Yes ([facility] T,TH,SAT) Hx Renal Failure: Yes - ENDOCRINE/METABOLIC Hx Diabetes Mellitus Type 2: Yes - HEMATOLOGICAL/ONCOLOGICAL Hx Blood Disorders: Yes - INTEGUMENTARY Hx Dermatological Problems: Yes Other/Comment: L great toe amputated,RT BKA - MUSCULOSKELETAL/RHEUMATOLOGICAL Hx Musculoskeletal Disorders: Yes Hx Falls: No Other/Comment: RT BKA - GASTROINTESTINAL Hx Gastroesophageal Reflux: Yes - GENITOURINARY/GYNECOLOGICAL Hx Genitourinary Disorders: No - PSYCHIATRIC Hx Psychophysiologic Disorder: Yes Hx Anxiety: Yes Hx Depression: Yes Hx Substance Use: No (Pt able to speak but refusing answer questions 11/21/16) - SURGICAL HISTORY Hx Amputation: Yes (L Great toe.RT BKA) Hx Open Heart Surgery: Yes - ANESTHESIA Hx Anesthesia: Yes Hx Anesthesia Reactions: No Hx Malignant Hyperthermia: No Meds Allergies/Adverse Reactions: Allergies Allergy/AdvReac Type Severity Reaction Status Date / Time ciprofloxacin Allergy SWELLING Verified 11/20/16 17:31 clarithromycin [From Biaxin] Allergy SWELLING Verified 11/20/16 17:31 pepper Allergy SWELLING Verified 11/20/16 17:31 - Medications Medications: Current Medications Albuterol/Ipratropium (Duoneb 3 Mg/0.5 Mg (3 Ml) Ud) 3 ml IH Q6H PRN PRN Reason: Shortness of Breath Alprazolam (Xanax) 0.5 mg PO TID PRN PRN Reason: Anxiety Amiodarone HCl (Cordarone) 200 mg PO DAILY [facility] Last Admin: 11/21/16 09:41 Dose: 200 mg Amlodipine Besylate (Norvasc) 10 mg PO DAILY [facility] Last Admin: 11/21/16 09:42 Dose: 10 mg Ascorbic Acid (Vitamin C 500 Mg Tab) 500 mg PO DAILY [facility] Last Admin: 11/21/16 09:43 Dose: 500 mg Atorvastatin Calcium (Lipitor) 80 mg PO DIN [facility] Carbidopa/Levodopa (Sinemet 10/100) 1 tab PO TID [facility] Last Admin: 11/21/16 09:42 Dose: 1 tab Carvedilol (Coreg) 6.25 mg PO Q12 [facility] Last Admin: 11/21/16 09:41 Dose: 6.25 mg Clonidine HCl (Catapres) 0.3 mg PO BID [facility] Escitalopram Oxalate (Lexapro) 10 mg PO DAILY [facility] Last Admin: 11/21/16 09:41 Dose: 10 mg Famotidine (Pepcid) 20 mg PO 1000,2200 [facility] Last Admin: 11/21/16 09:42 Dose: 20 mg Gabapentin (Neurontin) 100 mg PO BID [facility] PRN Reason: Protocol Last Admin: 11/21/16 09:42 Dose: 100 mg Hydralazine HCl (Apresoline) 100 mg PO Q8H [facility] Last Admin: 11/21/16 08:20 Dose: 100 mg Piperacillin Sod/Tazobactam Sod (Zosyn 2.25 Gm In 0.9% 100 Ml) 2.25 gm in 100 mls @ 100 mls/hr IVPB Q8 [facility] PRN Reason: Protocol Stop: 11/28/16 06:01 Last Admin: 11/21/16 07:10 Dose: 100 mls/hr Insulin Human Lispro (Humalog Low) 0 units SC ACHS [facility] PRN Reason: Protocol Last Admin: 11/21/16 08:20 Dose: 1 units Lisinopril (Zestril) 80 mg PO DAILY [facility] Last Admin: 11/21/16 09:43 Dose: 80 mg Primidone (Mysoline) 50 mg PO DAILY [facility] Last Admin: 11/21/16 09:42 Dose: 50 mg Sertraline HCl (Zoloft) 25 mg PO [facility] Sevelamer HCl (Renagel) 800 mg PO TID [facility] Last Admin: 11/21/16 09:42 Dose: 800 mg Thiamine HCl (Vitamin B1 Tab) 100 mg PO DAILY [facility] Last Admin: 11/21/16 09:43 Dose: 100 mg Zinc Sulfate (Zinc Sulfate 220 Mg Cap) 220 mg PO DAILY [facility] Last Admin: 11/21/16 09:43 Dose: 220 mg Physical Exam - Constitutional Appears: Well, Non-toxic, No Acute Distress - Head Exam Head Exam: ATRAUMATIC - Extremities Exam Additional comments: Dressing clean, dry, and intact to left LLE. RLE is absent due to prior below knee amputation. Neuro-vascular status grossly diminished to left lower extremity at level of digits. DERM: Left heel: Unstagable necrotic eschar 4cm x4cm No noted tract to bone. Non- blanchable erythema noted. Mild edema noted, no abscess or pus noted, minimal drainage on the dressing. - Skin Skin Exam: Normal Color, Warm Results - Vital Signs Recent Vital Signs: Last Vital Signs Temp 98.6 F 11/21/16 03:26 Pulse 64 11/21/16 03:26 Resp 18 11/21/16 03:26 BP 188/75 H 11/21/16 09:42 Pulse Ox 98 11/20/16 23:35 - Labs Result Diagrams: 11/21/16 07:00 11/21/16 07:00 Labs: Laboratory Results - last 24 hr 11/21/16 11/21/16 11/21/16 07:00 07:00 07:00 WBC 13.1 H D RBC 3.20 L Hgb 8.1 L Hct 26.5 L MCV 82.8 MCH 25.3 MCHC 30.6 L RDW 19.0 H Plt Count 359 MPV 10.0 Gran % 86.3 H Lymph % (Auto) 6.5 L Moca % (Auto) 5.6 Eos % (Auto) 1.3 L Baso % (Auto) 0.3 Gran # 11.34 H Lymph # 0.9 L Moca # 0.7 H Eos # 0.2 Baso # 0.04 PT 72.9 H* INR 6.75 H* APTT 82.1 H* Sodium 138 Potassium 3.8 Chloride 98 Carbon Dioxide 29 Anion Gap 15 BUN 38 H Creatinine 4.8 H Est GFR ( Amer) 11 Est GFR (Non-Af Amer) 9 POC Glucose (mg/dL) Random Glucose 130 H Calcium 9.8 Phosphorus 4.0 Magnesium 1.9 Total Bilirubin 0.9 AST 26 ALT 18 Alkaline Phosphatase 118 Total Protein 6.9 Albumin 3.0 Globulin 3.8 Albumin/Globulin Ratio 0.8 L 11/21/16 08:12 WBC RBC Hgb Hct MCV MCH MCHC RDW Plt Count MPV Gran % Lymph % (Auto) Moca % (Auto) Eos % (Auto) Baso % (Auto) Gran # Lymph # Moca # Eos # Baso # PT INR APTT Sodium Potassium Chloride Carbon Dioxide Anion Gap BUN Creatinine Est GFR ( Amer) Est GFR (Non-Af Amer) POC Glucose (mg/dL) 158 H Random Glucose Calcium Phosphorus Magnesium Total Bilirubin AST ALT Alkaline Phosphatase Total Protein Albumin Globulin Albumin/Globulin Ratio Assessment & Plan - Assessment and Plan (Free Text) Assessment: 66 year old female with 1) Non-stagable ischemic eschar to left heel. Plan: Pt seen and evaluated at bedside Chart, labs, and vitals reviewed Dressed wound with Hydrocolloid patch; plans to take wound culture tomorrow. Delaney ordered Pt to continue offloading left lower extremity in multipodis boot while in bed. Continue IV antibiotics as per ID - Reviewed vascular angioplasty finding and state of intervention from 11/07/16 procedure. Scan showed left pedal vascular is supplied by anterior tibial artery , Posterior tibial and plantar arch arteries are occluded. 3.0mm angio-ballon was placed in popliteal artery, and prior fem-pop bypass graft remains patent. Podiatry will continue to follow while in house. <Elmira Issa - Last Filed: 12/01/16 19:36> Results - Vital Signs Recent Vital Signs: Last Vital Signs Temp 98.2 F 11/25/16 16:00 Pulse 62 11/25/16 16:00 Resp 18 11/25/16 16:00 BP 180/68 H 11/25/16 16:00 Pulse Ox 97 11/25/16 16:00 - Labs Result Diagrams: 11/25/16 05:50 11/25/16 05:50 Attending/Attestation - Attestation I have personally seen and examined this patient.: Yes I have fully participated in the care of the patient.: Yes I have reviewed all pertinent clinical information: Yes
[2016-11-21] MEDS ORDERED: Darbepoetin Alfa 100 mcg/ml Inj IVP ONE (11:00)
--- NOTE | 2016-11-21 12:29 | CP.PCM.CON ---
History of Present Illness - History of Present Illness History of Present Illness: 66 year old female with PMH of Sepsis due to left sided healthcare-associated pneumonia, Left heel ulcer with evidence of acute osteomyelitis on bone scan 2016, ESRD on HD, CAD S/P CABG, chronic CHF, DM, history of anti-phospholipid antibody syndrome, S/P right below the knee amputation was recently admitted in [facility] and underwent angioplasty of the left lower extremity. She is now back from the long term because of hypoglycemic episodes and supratherapeutic INR. She is also complaining of pain at her sacral area where she has an unstageable sacral decubitus ulcer. She has no fever or chills, no nausea or vomiting, no headache or dizziness, no chest pain, no SOB, no abdominal pain, no diarrhea. She also has a left foot ulcer. Infectious diseases consult is requested to further evaluate and manage. Review of Systems - Review of Systems All systems: reviewed and no additional remarkable complaints except (as per HPI ) Past Patient History - Infectious Disease Hx of Infectious Diseases: None - Tetanus Immunizations Tetanus Immunization: Unknown - Past Medical History & Family History Past Medical History?: Yes - Past Social History Smoking Status: Former Smoker - CARDIAC Hx Cardiac Disorders: Yes Hx Congestive Heart Failure: Yes Other/Comment: Aortocoronary bypass graft 04/17/16 - PULMONARY Hx Respiratory Disorders: Yes - NEUROLOGICAL HX Cerebrovascular Accident: Yes Hx Parkinson's Disease: Yes - HEENT Hx HEENT Problems: Yes Other/Comment: wear glasses,L ear [facility] - RENAL Hx Chronic Kidney Disease: Yes Hx Dialysis: Yes ([facility] T,TH,SAT) Hx Renal Failure: Yes - ENDOCRINE/METABOLIC Hx Diabetes Mellitus Type 2: Yes - HEMATOLOGICAL/ONCOLOGICAL Hx Blood Disorders: Yes - INTEGUMENTARY Hx Dermatological Problems: Yes Other/Comment: L great toe amputated,RT BKA - MUSCULOSKELETAL/RHEUMATOLOGICAL Hx Musculoskeletal Disorders: Yes Hx Falls: No Other/Comment: RT BKA - GASTROINTESTINAL Hx Gastroesophageal Reflux: Yes - GENITOURINARY/GYNECOLOGICAL Hx Genitourinary Disorders: No - PSYCHIATRIC Hx Psychophysiologic Disorder: Yes Hx Anxiety: Yes Hx Depression: Yes Hx Substance Use: No (Pt able to speak but refusing answer questions 11/21/16) - SURGICAL HISTORY Hx Amputation: Yes (L Great toe.RT BKA) Hx Open Heart Surgery: Yes - ANESTHESIA Hx Anesthesia: Yes Hx Anesthesia Reactions: No Hx Malignant Hyperthermia: No Meds Allergies/Adverse Reactions: Allergies Allergy/AdvReac Type Severity Reaction Status Date / Time ciprofloxacin Allergy SWELLING Verified 11/20/16 17:31 clarithromycin [From Biaxin] Allergy SWELLING Verified 11/20/16 17:31 pepper Allergy SWELLING Verified 11/20/16 17:31 - Medications Medications: Current Medications Albuterol/Ipratropium (Duoneb 3 Mg/0.5 Mg (3 Ml) Ud) 3 ml IH Q6H PRN PRN Reason: Shortness of Breath Alprazolam (Xanax) 0.5 mg PO TID PRN PRN Reason: Anxiety Amiodarone HCl (Cordarone) 200 mg PO DAILY [facility] Amlodipine Besylate (Norvasc) 10 mg PO DAILY [facility] Ascorbic Acid (Vitamin C 500 Mg Tab) 500 mg PO DAILY [facility] Atorvastatin Calcium (Lipitor) 80 mg PO DIN [facility] Carbidopa/Levodopa (Sinemet 10/100) 1 tab PO TID [facility] Carvedilol (Coreg) 6.25 mg PO Q12 [facility] Clonidine HCl (Catapres) 0.3 mg PO BID [facility] Escitalopram Oxalate (Lexapro) 10 mg PO DAILY [facility] Famotidine (Pepcid) 20 mg PO 1000,2200 [facility] Gabapentin (Neurontin) 100 mg PO BID [facility] PRN Reason: Protocol Hydralazine HCl (Apresoline) 100 mg PO Q8H [facility] Last Admin: 11/21/16 01:17 Dose: 100 mg Piperacillin Sod/Tazobactam Sod (Zosyn 2.25 Gm In 0.9% 100 Ml) 2.25 gm in 100 mls @ 100 mls/hr IVPB Q8 [facility] PRN Reason: Protocol Stop: 11/28/16 06:01 Insulin Human Lispro (Humalog Low) 0 units SC ACHS [facility] PRN Reason: Protocol Lisinopril (Zestril) 80 mg PO DAILY [facility] Primidone (Mysoline) 50 mg PO DAILY [facility] Sertraline HCl (Zoloft) 25 mg PO HS [facility] Sevelamer HCl (Renagel) 800 mg PO TID [facility] Thiamine HCl (Vitamin B1 Tab) 100 mg PO DAILY [facility] Zinc Sulfate (Zinc Sulfate 220 Mg Cap) 220 mg PO DAILY [facility] Physical Exam - Constitutional Appears: Non-toxic, No Acute Distress - Head Exam Head Exam: NORMAL INSPECTION - ENT Exam ENT Exam: Mucous Membranes Moist - Neck Exam Neck exam: Negative for: Meningismus - Respiratory Exam Respiratory Exam: Decreased Breath Sounds - Cardiovascular Exam Cardiovascular Exam: +S1 - GI/Abdominal Exam GI & Abdominal Exam: Soft. absent: Tenderness - Extremities Exam Additional comments: left foot with dressings in place - Back Exam Additional comments: sacral decubitus ulcer noted Results - Vital Signs Recent Vital Signs: Last Vital Signs Temp 98.6 F 11/21/16 03:26 Pulse 64 11/21/16 03:26 Resp 18 11/21/16 03:26 BP 182/60 H 11/21/16 03:26 Pulse Ox 98 11/20/16 23:35 - Labs Result Diagrams: 11/21/16 07:00 11/21/16 07:00 Assessment & Plan - Assessment and Plan (Free Text) Plan: Assessment sacral decubitus ulcer, currently unstageable, probably infected peripheral arterial disease with left foot ulcer, probably infected history of left foot ulcer, which grew E. faecalis, E. coli and Pseudomonas history of acute left occipital lobe infarct history of sepsis due to left sided healthcare-associated pneumonia history of Left heel ulcer with evidence of acute osteomyelitis on bone scan on 07/2016 ESRD on HD CAD S/P CABG chronic CHF DM history of anti-phospholipid antibody syndrome S/P right below the knee amputation Plan based on previous cultures, started patient on intermittent Vancomycin and Zosyn pending blood and wound cx; follow up Podiatry and Surgery evaluations will monitor clinically
[2016-11-21] MEDS ORDERED: Morphine 2 mg/ml ISec IVP STA (15:20)
[2016-11-21] MEDS: Collagenase 250 Units/gm Ointment(30 gm) TOP SCH (18:30)
--- NOTE | 2016-11-21 20:05 | CARD ---
APPROVED REPORT EKG Measurement Heart [id number] <Conclusion> Normal sinus rhythm Left ventricular hypertrophy with repolarization abnormality Inferior infarct, age undetermined Abnormal ECG
--- NOTE | 2016-11-21 22:06 | CP.PCM.PN ---
<AdrianEliot - Last Filed: 11/21/16 22:02> Subjective - Date & Time of Evaluation Date of Evaluation: 11/21/16 Time of Evaluation: 09:30 - Subjective Subjective: Pt s/e bedside. Pt was complaining of pain after dialysis today. ROS hard to obtain, 2/2 mental status, patient does not answer questions. However, did obtain that patient was not feeling f/ch/n/v/d/cp/sob. Patient does feel weak. care home sent her here for supratherapeutic INR and hyperglycemic episodes. See A/P. Objective - Vital Signs/Intake and Output Vital Signs (last 24 hours): Temp Pulse Resp BP Pulse Ox 97.4 F L 61 18 170/91 H 98 11/21/16 16:00 11/21/16 21:33 11/21/16 16:00 11/21/16 21:33 11/21/16 16:00 Intake and Output: 11/21/16 11/22/16 18:59 06:59 Intake Total 240 0 Balance 240 0 - Medications Medications: Current Medications Albuterol/Ipratropium (Duoneb 3 Mg/0.5 Mg (3 Ml) Ud) 3 ml IH Q6H PRN PRN Reason: Shortness of Breath Alprazolam (Xanax) 0.5 mg PO TID PRN PRN Reason: Anxiety Amiodarone HCl (Cordarone) 200 mg PO DAILY [facility] Last Admin: 11/21/16 09:41 Dose: 200 mg Amlodipine Besylate (Norvasc) 10 mg PO DAILY [facility] Last Admin: 11/21/16 09:42 Dose: 10 mg Ascorbic Acid (Vitamin C 500 Mg Tab) 500 mg PO DAILY [facility] Last Admin: 11/21/16 09:43 Dose: 500 mg Atorvastatin Calcium (Lipitor) 80 mg PO DIN [facility] Last Admin: 11/21/16 17:23 Dose: 80 mg Carbidopa/Levodopa (Sinemet 10/100) 1 tab PO TID [facility] Last Admin: 11/21/16 18:55 Dose: 1 tab Carvedilol (Coreg) 6.25 mg PO Q12 [facility] Last Admin: 11/21/16 21:33 Dose: 6.25 mg Clonidine HCl (Catapres) 0.3 mg PO BID [facility] Last Admin: 11/21/16 17:24 Dose: 0.3 mg Collagenase (Santyl) 0 gm TOP DAILY [facility] Last Admin: 11/21/16 18:30 Dose: 1 applic Escitalopram Oxalate (Lexapro) 10 mg PO DAILY [facility] Last Admin: 11/21/16 09:41 Dose: 10 mg Famotidine (Pepcid) 20 mg PO 1000,2200 [facility] Last Admin: 11/21/16 21:33 Dose: 20 mg Gabapentin (Neurontin) 100 mg PO BID [facility] PRN Reason: Protocol Last Admin: 11/21/16 17:22 Dose: 100 mg Hydralazine HCl (Apresoline) 100 mg PO Q8H [facility] Last Admin: 11/21/16 18:57 Dose: Not Given Piperacillin Sod/Tazobactam Sod (Zosyn 2.25 Gm In 0.9% 100 Ml) 2.25 gm in 100 mls @ 100 mls/hr IVPB Q8 [facility] PRN Reason: Protocol Stop: 11/28/16 06:01 Last Admin: 11/21/16 21:55 Dose: 100 mls/hr Insulin Human Lispro (Humalog Low) 0 units SC ACHS [facility] PRN Reason: Protocol Last Admin: 11/21/16 17:24 Dose: 1 units Lisinopril (Zestril) 80 mg PO DAILY [facility] Last Admin: 11/21/16 09:43 Dose: 80 mg Primidone (Mysoline) 50 mg PO DAILY [facility] Last Admin: 11/21/16 09:42 Dose: 50 mg Sertraline HCl (Zoloft) 25 mg PO HS [facility] Last Admin: 11/21/16 21:33 Dose: 25 mg Sevelamer HCl (Renagel) 800 mg PO TID [facility] Last Admin: 11/21/16 18:55 Dose: 800 mg Thiamine HCl (Vitamin B1 Tab) 100 mg PO DAILY [facility] Last Admin: 11/21/16 09:43 Dose: 100 mg Zinc Sulfate (Zinc Sulfate 220 Mg Cap) 220 mg PO DAILY [facility] Last Admin: 11/21/16 09:43 Dose: 220 mg - Labs Labs: 11/21/16 07:00 11/21/16 07:00 PT 72.9 Seconds (9.9-11.8) H* 11/21/16 07:00 INR 6.75 (0.93-1.08) H* 11/21/16 07:00 APTT 82.1 Seconds (23.7-30.8) H* 11/21/16 07:00 - Additional Findings Additional findings: Constitutional: chronically ill, NAD Head and Neck: atraumatic, normocephalic, neck supple, no jvd, trachea midline, carotid midline, no cervical/head mass Eyes: eomi, julio, nonicteric sclera ENT: no nasal deformity Cardio: rrr, no m/r/g, no carotid bruit, nml s1, s2 Pulm: no accessory muscle use, equal nml breath sounds bilaterally, minor rhonchi in right bases Abd: s/nt/nd, nbs x 4 q, no palpable masses Derm: See additional findings Extr: R sided BKA- dressing in place Neuro: AO x 3 [self and place] - might be A/O X 4, but does not answer questions so hard to elicit. CN II-XII grossly intact Additional: Sacral Decub ulcer- Unstagable 7x8cm; Right Patella- Stage 3 4x5; Left calcaneous- unstagable 3x3 Assessment and Plan - Assessment and Plan (Free Text) Assessment: 66yo female PMHx of ESRD on HD, CAD s/p CABG, seizures, depression, GERD, CHF, IDDM, Parkinsons, DVTs and CVA secondary to antiphospholipid syndrome BIBA from snf for elevated INR and hypoglycemic episodes Plan: Supratherapeutic INR - on admission INR 6.54 - no acute bleed at this time and H&H is stable as per prior medical records - hold Coumadin - recheck INR in AM Hypoglycemic episodes - on admission POCG 115 and random glucose 85 - Accucheck ACHS - RISS low dose - as per family, patient had decreased appetite - CT abd/pelvis ordered- f/u official read - Head CT ordered for AMS: no acute changes - hold basal insulin - Gabapentin 100mg po bid - Dietary consulted- f/u reccs Leukocytosis - 17.5 on admission - afebrile - likely sacral decubitus ulcer source - f/u wound culture, blood culture, urine culture - ID Dr. Wood consulted- f/u reccs Sacral decubitus ulcer - Afebrile, leukocytosis of 17.5 on admission - Unstageable ulceration - f/u wound culture - Zosyn 2.25 IVPB q8 started on 11/21 - multivitamin daily - Vitamin C 500mg po daily - Zinc 220mg po daily - ID Dr. 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 There is 1 vessel runoff via the left anterior tibial artery; L posterior tibial artery and plantar arch are occluded - collagenase foam dressing qdaily - continue Multipodus boots and offloading - Podiatry consulted- f/u reccs Hx of Anemia - likely anemia of chronic disease - Monitor H&H Hx of Hypertension - Amiodarone 200mg po daily - Norvasc 10mg po daily - Lisinopril 80mg po daily - Hydralazine 100mg po q8h - Coreg 6.25mg po q12 - Clonidine 0.3mg po bid - Monitor and adjust BP medications as needed Hx of ESRD on HD (/Fri) - Renagel 800mg po tid - Nephrology Dr Eller consulted- f/u reccs Hx of CAD s/p CABG - ASA 81mg po daily - Lipitor 80mg po hs Hx of Antiphospholipid syndrome - Coumadin on hold Hx of Depression and anxiety - Xanax 0.5mg po tid - Lexapro 10mg po daily Hx of Parkinsons - Primodone 50mg po daily - Sinemet 1 tab po daily DVT ppx: VTE ppx c/i secondary to supratherapeutic INR and SCDs c/i secondary to R BKA GI ppx: Pepcid 20mg po bid Diet: Heart healthy mod consistent carb renal dialysis diet PT/OT/Dietary ordered Case discussed with Dr. Jose Wall PGY2 Plan: Plan: Supratherapeutic INR - on admission INR 6.54 - no acute bleed at this time and H&H is stable as per prior medical records - hold Coumadin - recheck INR: increased since admission Look for source of bleed CT Abd/Pelvis FOBT Hypoglycemic episodes - on admission POCG 115 and random glucose 85 - Accucheck ACHS - RISS low dose - as per family, patient had decreased appetite - CT abd/pelvis ordered- f/u official read - Head CT ordered for AMS: no acute changes - hold basal insulin - Gabapentin 100mg po bid - Dietary consulted- f/u reccs Leukocytosis - 17.5 on admission - afebrile - likely sacral decubitus ulcer source - f/u wound culture, blood culture, urine culture - ID Dr. Wood consulted Based on previous cultures, started patient on intermittent Vancomycin and Zosyn pending blood and wound cx No recommendation for any pneumonia ascertained from note at this time Sacral decubitus ulcer - Afebrile, leukocytosis of 17.5 on admission - Unstageable ulceration - f/u wound culture - Zosyn 2.25 IVPB q8 started on 11/21 - multivitamin daily - Vitamin C 500mg po daily - Zinc 220mg po daily - ID Dr. Wood consulted- see above - Wound care consulted Lower extremity wounds - s/p Angio 11/07: critical stenosis of L anterior tibial A origin; successful angioplasty of L anterior tibial A origin with 3mm balloon; patent L femoral- popliteal prosthetic bypass graft, severe L tibial and pedal occlusive disease. There is 1 vessel runoff via the left anterior tibial artery; L posterior tibial artery and plantar arch are occluded - collagenase foam dressing qdaily - continue Multipodus boots and offloading - Podiatry consulted Dressed wound with Hydrocolloid patch; plans to take wound culture tomorrow. Delaney ordered Pt to continue offloading left lower extremity in multipodis boot while in bed. Continue IV antibiotics as per ID Hx of Anemia - likely anemia of chronic disease - Monitor H&H Hx of Hypertension - Amiodarone 200mg po daily - Norvasc 10mg po daily - Lisinopril 80mg po daily - Hydralazine 100mg po q8h - Coreg 6.25mg po q12 - Clonidine 0.3mg po bid - Monitor and adjust BP medications as needed Hx of ESRD on HD (//Fri) - Renagel 800mg po tid - Nephrology Dr Eller consulted- f/u reccs Hx of CAD s/p CABG - ASA 81mg po daily - Lipitor 80mg po hs Hx of Antiphospholipid syndrome - Coumadin on hold Hx of Depression and anxiety - Xanax 0.5mg po tid - Lexapro 10mg po daily Hx of Parkinsons - Primodone 50mg po daily - Sinemet 1 tab po daily DVT ppx: VTE ppx c/i secondary to supratherapeutic INR and SCDs c/i secondary to R BKA GI ppx: Pepcid 20mg po bid Diet: Heart healthy mod consistent carb renal dialysis diet PT/OT/Dietary ordered Dispo: Case discussed with Dr. Aguirre TKS PGY 1 <Wm Aguirre - Last Filed: 12/05/16 11:09> Objective - Vital Signs/Intake and Output Vital Signs (last 24 hours): Temp Pulse Resp BP Pulse Ox 98.2 F 62 18 180/68 H 97 11/25/16 16:00 11/25/16 16:00 11/25/16 16:00 11/25/16 16:00 11/25/16 16:00 - Labs Labs: 11/25/16 05:50 11/25/16 05:50 PT 34.3 Seconds (9.9-11.8) H* 11/25/16 05:50 INR 3.18 (0.93-1.08) H 11/25/16 05:50 APTT 86.4 Seconds (23.7-30.8) H* 11/22/16 06:40 Attending/Attestation - Attestation I have personally seen and examined this patient.: Yes I have fully participated in the care of the patient.: Yes I have reviewed all pertinent clinical information, including history, physical exam and plan: Yes Notes (Text): 12/05/16 11:09 Medical record note made by the resident after discussion with my direction and input after the patient was personally seen by me. I have reviewed the chart and agree that the record accurately reflects my personal performance of the history, physical, decision making, and plan for the patient.
[2016-11-22] MEDS: Piperacillin/Tazobact 2.25gm 2.25 GM/100 ML BAG IVPB SCH ×3 (05:05→22:45)
[2016-11-22 07:14] LABS: BASO # 0.04 K/mm3 (0.0-2.0); BASO % 0.3 % (0.0-3.0); EOS # 0.1 (0.0-0.7); EOS % 0.9 % (1.5-5.0); GRAN # 11.26 (1.4-6.5); HEMATOCRIT 28.8 % (36.0-48.0); LYMPH # 0.8 (1.2-3.4); MEAN CORPUSCULAR HEMOGLOBIN 25.6 pg (25.0-35.0); MEAN CORPUSCULAR HGB CONC 30.9 g/dl (31.0-37.0); MEAN PLATELET VOLUME 10.2 fl (7.0-11.0); MONO # 0.8 (0.1-0.6); MONO % 5.8 % (1.0-6.0); RED CELL DISTRIBUTION WIDTH 19.2 % (11.5-14.5)
[2016-11-22 07:15] LABS: ALB/GLOB RATIO 0.8 (1.1-1.8); BILIRUBIN,TOTAL 0.7 mg/dL (0.2-1.3); CALCIUM 10.1 mg/dL (8.4-10.5); MAGNESIUM 1.9 mg/dL (1.7-2.2); PHOSPHOROUS 3.6 mg/dL (2.5-4.5); POTASSIUM 4.2 mmol/L (3.6-5.0); TOTAL PROTEIN 7.2 g/dL (5.8-8.3)
--- NOTE | 2016-11-22 07:29 | CON ---
DATE: 11/21/2016 REFERRING PHYSICIAN: Wm Aguirre MD REASON FOR CONSULTATION: End-stage renal disease, on hemodialysis. HISTORY OF PRESENT ILLNESS: This is a 66-year-old female who is known to me coming in to the hospital because of elevated INR and hypoglycemia. The patient has been complaining of pain to sacral area. She has a history of pressure ulcers. She has extensive multiple comorbidities with coronary artery disease, CABG, peripheral arterial disease, and diabetes. The patient has been treated for her chronic wounds. They have been unstageable. She has multiple wounds on her body. She has a wound to the right thigh and left ankle. She is not awake and alert. She is confused, not able to answer questions. This is a change from her previous baseline. REVIEW OF SYSTEMS: Limited because of the patient's underlying confusion. ALLERGIES: CIPRO, CLARITHROMYCIN, AND PEPPER. PAST MEDICAL HISTORY: 1. End-stage renal disease, on hemodialysis Friday, , and Friday. 2. DVT/antiphospholipid antibody, on Coumadin. 3. Coronary artery disease with stenting. 4. Hypertension. 5. Parkinson's. 6. Diabetes type 2. 7. Peripheral arterial disease. 8. GERD. 9. Right pressure ulcers. PAST SURGICAL HISTORY: 1. Left leg femoral bypass. 2. Right BKA. 3. CABG. 4. Left toe amputation. 5. Bilateral cataract surgery. SOCIAL HISTORY: She was living with her daughter. She is . She does not smoke or drink. FAMILY HISTORY: Noncontributory. MEDICATIONS: Have been reviewed on the MAY. PHYSICAL EXAMINATION: VITAL SIGNS: Temperature is 98.7, pulse is 72, blood pressure is 189/80, respirations are 24, and O2 saturation 97%, height 5 feet 4 inches, and weight is 140 pounds. GENERAL: The patient lying in bed, uncomfortable, and in no acute distress. HEENT: Atraumatic and normocephalic. Anicteric sclerae. Moist mucosa. [place] conjunctivae. No oral lesions. NECK: No JVD, anterior and posterior adenopathy, thyromegaly, or bruits. CARDIOVASCULAR: S1 and S2 regular. No murmur, rubs, or gallop. LUNGS: Clear to auscultation bilaterally. No wheezes, rales, or rhonchi. ABDOMEN: Bowel sounds are positive. Soft, nontender and nondistended. No hepatosplenomegaly. No rebound and no guarding EXTREMITIES: No cyanosis, clubbing, or edema. In the right leg it is BKA. There is a pressure ulcer unstageable in the right thigh and left ankle. Right IJ . NEUROLOGIC: No facial asymmetry. Tongue is midline. No uvula deviation. Power is 5/5 upper extremity and lower extremity. Sensation intact in upper extremity and lower extremity. PSYCHIATRIC: She is awake, alert and oriented x3. No anxiety or depression. She has normal affect. GENITOURINARY: No CVA tenderness. VASCULAR: 2+ pulses in the carotid pulses and pedal pulses. SKIN: No erythema or nodules. SPINE: Shows normal curvature. EXTREMITIES: No Cyanosis and clubbing, no edema. LABORATORY DATA: White count is 17.5 and hemoglobin is 9.4. INR is 6.5. Chemistries shows a creatinine of 4.0 and potassium is 4.3. Urine shows protein greater than 300, blood is lysed. Nitrites and urobilinogen is negative. Chest x-ray showed no infiltrates. CT of the head shows generalized atrophy. EKG done shows sinus rhythm at 66 with LVH, QTc is 415. CT of the abdomen and pelvis shows right inguinal hematoma. ASSESSMENT: 1. Pressure ulcers in the sacrum, right leg, and left ankle. 2. End-stage renal disease, on hemodialysis. 3. Coagulopathy secondary to Coumadin toxicity. 4. Coronary artery disease and stenting. 5. Secondary hyperparathyroidism. 6. Anemia, chronic. 7. Hypertension. 8. Parkinson's. 9. Diabetes type 2. 10. Peripheral arterial disease. 11. Gastroesophageal reflux disease. 12. Dyslipidemia. 13. Sepsis. PLAN: The patient is bizarre last day and I did speak to the dialysis head nurse. I have talked to patient on 2K bath because of her potassium and the blood work this morning. The patient has blood cultures and urine cultures that have been done because of the source of her infection. She is on Aranesp for her anemia. She is going to continue with Coreg. She is on Lexapro for her anxiety. She is on Lipitor for dyslipidemia. The patient is on Coumadin per her pharmacist. She is going to continue with amlodipine for hypertension. She is going to be on sevelamer 800 mg t.i.d. with meal for her secondary hyperparathyroidism. She is on lisinopril at maximum dose for her hypertension. She is on clonidine for her hypertension. We will continue to dialyze the patient. Her next dialysis I am going to continue on Friday, Tuesdays, and . Thank you for allowing me to participate in the care of your patient. We will continue to follow. Bebo Eller MD
[2016-11-22 07:49] LABS: INR 6.56 (0.93-1.08)
[2016-11-22 07:50] LABS: PARTIAL THROMBOPLASTIN TIME 86.4 Seconds (23.7-30.8)
--- NOTE | 2016-11-22 09:56 | CT ---
PROCEDURE: CT Abdomen and Pelvis without intravenous contrast HISTORY: Increased INR COMPARISON: Abdomen and pelvis CT without contrast 11/20/2016 TECHNIQUE: Helical CT of the abdomen pelvis was performed without oral or intravenous contrast administered as per request.. Contrast Dose: None Radiation dose: Total exam DLP = 435.64 mGy-cm. This CT exam was performed using one or more of the following dose reduction techniques: Automated exposure control, adjustment of the mA and/or kV according to patient size, and/or use of iterative reconstruction technique. FINDINGS: LOWER THORAX: Linear atelectasis or fibrosis is again seen the right base as well as cardiomegaly. LIVER: Unremarkable. No gross lesion or ductal dilatation. GALLBLADDER AND BILE DUCTS: Gallbladder is further distended with sludge identified in the dependent portion. No definitive mural thickening. No pericholecystic fluid collection. PANCREAS: Unremarkable. No gross lesion or ductal dilatation. SPLEEN: Unremarkable. ADRENALS: Unremarkable. No mass. KIDNEYS AND URETERS: Stable 2.7 cm cyst seen in the upper pole left kidney. Bilateral renal cortical atrophy is appreciated extensive arterial calcifications appreciated none on antiviral hilar regions but also within the bilateral renal parenchyma as well. No obstructive uropathy bilaterally. VASCULATURE: Unremarkable. No aortic aneurysm. BOWEL: Unremarkable. No obstruction. No gross mural thickening. APPENDIX: Unremarkable. Normal appendix. The appendix remains retrocecal with cecum approaching the midline in the pelvis. PERITONEUM: Unremarkable. No free fluid. No free air. LYMPH NODES: Unremarkable. No enlarged lymph nodes. BLADDER: Trace gas is seen within a mildly distended urinary bladder which may indicate recent instrumentation. Clinically correlate. . REPRODUCTIVE: Unremarkable. BONES: Grade 1 spondylolisthesis L4-5 with L4 slightly anterior to L5. OTHER FINDINGS: Tiny umbilical hernia is identified containing only fat. In addition, a 5.2 x 3.07 cm intermediate density lesion is again seen at the anterior deep subcutaneous fat of the abdominal/pelvic wall in the plane of the right common femoral vasculature slightly larger compared to 4.5 x 3.0 cm previously on 11/20/2016 CT. The differs diagnosis remains enlarged lymph node or other soft tissue lesion versus hematoma though likely subacute or potentially early chronic hematoma. IMPRESSION: 1. No definite acute intra-abdominal findings in the interval. 2. Left renal cyst again identified. 3. An ovoid intermediate density lesion is again seen in the deep subcutaneous fat at the abdominopelvic wall overlying the plane of the common femoral vascular sheath slightly increased in size measuring 5.2 cm currently compared to 4.5 cm on 11/20/2016 CT. Hematoma remains a possibility here is well as an enlarged lymph node and ultrasonography is recommended for additional characterization.
[2016-11-22] MEDS: Collagenase 250 Units/gm Ointment(30 gm) TOP SCH (10:00)
[2016-11-22] MEDS ORDERED: Morphine 2 mg/ml ISec IVP STA (10:06)
[2016-11-22] MEDS: Insulin Lispro (humaLOG) LOW Coverage SC SCH ×3 (12:49→22:34)
--- NOTE | 2016-11-22 13:09 | CP.PCM.PN ---
<Tho Farias - Last Filed: 11/22/16 13:07> Subjective - Date & Time of Evaluation Date of Evaluation: 11/22/16 Time of Evaluation: 10:00 - Subjective Subjective: 66 year old female patietn was seen at bedside concerning left heel deep tissue injury and ulcer. She states that pain in her foot is decreased and denies any acute overnight events. Multipodus boot in place this morning. Patient denies any further pedal complaints at this time. Patient denies N/V/F/C/CP/SOB Objective - Vital Signs/Intake and Output Vital Signs (last 24 hours): Temp Pulse Resp BP Pulse Ox 97.8 F 68 20 164/58 H 99 11/22/16 08:35 11/22/16 09:29 11/22/16 08:35 11/22/16 11:02 11/22/16 08:35 Intake and Output: 11/22/16 11/22/16 06:59 18:59 Intake Total 160 Balance 160 - Medications Medications: Current Medications Albuterol/Ipratropium (Duoneb 3 Mg/0.5 Mg (3 Ml) Ud) 3 ml IH Q6H PRN PRN Reason: Shortness of Breath Alprazolam (Xanax) 0.5 mg PO TID PRN PRN Reason: Anxiety Amiodarone HCl (Cordarone) 200 mg PO DAILY [facility] Last Admin: 11/22/16 09:30 Dose: 200 mg Amlodipine Besylate (Norvasc) 10 mg PO DAILY [facility] Last Admin: 11/22/16 08:15 Dose: 10 mg Ascorbic Acid (Vitamin C 500 Mg Tab) 500 mg PO DAILY [facility] Last Admin: 11/22/16 09:31 Dose: 500 mg Atorvastatin Calcium (Lipitor) 80 mg PO DIN [facility] Last Admin: 11/21/16 17:23 Dose: 80 mg Carbidopa/Levodopa (Sinemet 10/100) 1 tab PO TID [facility] Last Admin: 11/21/16 18:55 Dose: 1 tab Carvedilol (Coreg) 6.25 mg PO Q12 [facility] Last Admin: 11/22/16 09:30 Dose: 6.25 mg Clonidine HCl (Catapres) 0.3 mg PO BID [facility] Last Admin: 11/22/16 09:29 Dose: 0.3 mg Collagenase (Santyl) 0 gm TOP DAILY [facility] Last Admin: 11/21/16 18:30 Dose: 1 applic Escitalopram Oxalate (Lexapro) 10 mg PO DAILY [facility] Last Admin: 11/22/16 09:31 Dose: 10 mg Famotidine (Pepcid) 20 mg PO 1000,2200 [facility] Last Admin: 11/22/16 09:31 Dose: 20 mg Gabapentin (Neurontin) 100 mg PO BID [facility] PRN Reason: Protocol Last Admin: 11/22/16 09:30 Dose: 100 mg Hydralazine HCl (Apresoline) 100 mg PO Q8H [facility] Last Admin: 11/22/16 08:14 Dose: 100 mg Piperacillin Sod/Tazobactam Sod (Zosyn 2.25 Gm In 0.9% 100 Ml) 2.25 gm in 100 mls @ 100 mls/hr IVPB Q8 [facility] PRN Reason: Protocol Stop: 11/28/16 06:01 Last Admin: 11/22/16 05:05 Dose: 100 mls/hr Insulin Human Lispro (Humalog Low) 0 units SC ACHS [facility] PRN Reason: Protocol Last Admin: 11/22/16 12:49 Dose: 3 units Lisinopril (Zestril) 80 mg PO DAILY [facility] Last Admin: 11/22/16 09:30 Dose: 80 mg Primidone (Mysoline) 50 mg PO DAILY [facility] Last Admin: 11/22/16 09:31 Dose: 50 mg Sertraline HCl (Zoloft) 25 mg PO HS [facility] Last Admin: 11/21/16 21:33 Dose: 25 mg Sevelamer HCl (Renagel) 800 mg PO TID [facility] Last Admin: 11/22/16 09:01 Dose: 800 mg Thiamine HCl (Vitamin B1 Tab) 100 mg PO DAILY [facility] Last Admin: 11/22/16 09:30 Dose: 100 mg Zinc Sulfate (Zinc Sulfate 220 Mg Cap) 220 mg PO DAILY [facility] Last Admin: 11/22/16 12:50 Dose: 220 mg - Labs Labs: 11/22/16 06:40 11/22/16 06:40 PT 70.9 Seconds (9.9-11.8) H* 11/22/16 06:40 INR 6.56 (0.93-1.08) H* 11/22/16 06:40 APTT 86.4 Seconds (23.7-30.8) H* 11/22/16 06:40 - Constitutional Appears: Well, Non-toxic, No Acute Distress - Extremities Exam Additional comments: Dressing clean, dry, and intact to left LLE. RLE is absent due to prior below knee amputation. Neuro-vascular status grossly diminished to left lower extremity at level of digits. DERM: Left heel: Unstagable necrotic eschar 4cm x4cm No noted tract to bone. Non- blanchable erythema noted. Mild edema noted, no abscess or pus noted, minimal drainage on the dressing. - Neurological Exam Neurological Exam: Alert, Awake, Oriented x3 - Psychiatric Exam Psychiatric exam: Normal Affect, Normal Mood - Skin Skin Exam: Normal Color, Warm Assessment and Plan - Assessment and Plan (Free Text) Assessment: 66 year old female with 1) Non-stagable ischemic eschar to left heel. Plan: Pt seen and evaluated at bedside Chart, labs, and vitals reviewed Wound culture taken today. result pending dressed with SantylBARBARA Pt to continue offloading left lower extremity in multipodis boot while in bed. Continue IV antibiotics as per ID - Reviewed vascular angioplasty finding and state of intervention from 11/07/16 procedure. Scan showed left pedal vascular is supplied by anterior tibial artery , Posterior tibial and plantar arch arteries are occluded. 3.0mm angio-ballon was placed in popliteal artery, and prior fem-pop bypass graft remains patent. Podiatry will continue to follow while in house. <Dany Gay - Last Filed: 11/22/16 16:33> Objective - Vital Signs/Intake and Output Vital Signs (last 24 hours): Temp Pulse Resp BP Pulse Ox 97.8 F 68 20 164/58 H 99 11/22/16 08:35 11/22/16 09:29 11/22/16 08:35 11/22/16 11:02 11/22/16 08:35 Intake and Output: 11/22/16 11/22/16 06:59 18:59 Intake Total 160 Balance 160 - Medications Medications: Current Medications Albuterol/Ipratropium (Duoneb 3 Mg/0.5 Mg (3 Ml) Ud) 3 ml IH Q6H PRN PRN Reason: Shortness of Breath Alprazolam (Xanax) 0.5 mg PO TID PRN PRN Reason: Anxiety Amiodarone HCl (Cordarone) 200 mg PO DAILY [facility] Last Admin: 11/22/16 09:30 Dose: 200 mg Amlodipine Besylate (Norvasc) 10 mg PO DAILY [facility] Last Admin: 11/22/16 08:15 Dose: 10 mg Ascorbic Acid (Vitamin C 500 Mg Tab) 500 mg PO DAILY [facility] Last Admin: 11/22/16 09:31 Dose: 500 mg Atorvastatin Calcium (Lipitor) 80 mg PO DIN [facility] Last Admin: 11/21/16 17:23 Dose: 80 mg Carbidopa/Levodopa (Sinemet 10/100) 1 tab PO TID [facility] Last Admin: 11/21/16 18:55 Dose: 1 tab Carvedilol (Coreg) 6.25 mg PO Q12 [facility] Last Admin: 11/22/16 09:30 Dose: 6.25 mg Clonidine HCl (Catapres) 0.3 mg PO BID [facility] Last Admin: 11/22/16 09:29 Dose: 0.3 mg Collagenase (Santyl) 0 gm TOP DAILY [facility] Last Admin: 11/21/16 18:30 Dose: 1 applic Escitalopram Oxalate (Lexapro) 10 mg PO DAILY [facility] Last Admin: 11/22/16 09:31 Dose: 10 mg Famotidine (Pepcid) 20 mg PO 1000,2200 [facility] Last Admin: 11/22/16 09:31 Dose: 20 mg Gabapentin (Neurontin) 100 mg PO BID [facility] PRN Reason: Protocol Last Admin: 11/22/16 09:30 Dose: 100 mg Hydralazine HCl (Apresoline) 100 mg PO Q8H [facility] Last Admin: 11/22/16 08:14 Dose: 100 mg Piperacillin Sod/Tazobactam Sod (Zosyn 2.25 Gm In 0.9% 100 Ml) 2.25 gm in 100 mls @ 100 mls/hr IVPB Q8 [facility] PRN Reason: Protocol Stop: 11/28/16 06:01 Last Admin: 11/22/16 14:14 Dose: 100 mls/hr Insulin Human Lispro (Humalog Low) 0 units SC ACHS [facility] PRN Reason: Protocol Last Admin: 11/22/16 16:16 Dose: Not Given Lisinopril (Zestril) 80 mg PO DAILY [facility] Last Admin: 08/25/17 09:30 Dose: 80 mg Primidone (Mysoline) 50 mg PO DAILY [facility] Last Admin: 11/22/16 09:31 Dose: 50 mg Sertraline HCl (Zoloft) 25 mg PO HS [facility] Last Admin: 11/21/16 21:33 Dose: 25 mg Sevelamer HCl (Renagel) 800 mg PO TID [facility] Last Admin: 11/22/16 09:01 Dose: 800 mg Thiamine HCl (Vitamin B1 Tab) 100 mg PO DAILY [facility] Last Admin: 11/22/16 09:30 Dose: 100 mg Zinc Sulfate (Zinc Sulfate 220 Mg Cap) 220 mg PO DAILY [facility] Last Admin: 11/22/16 12:50 Dose: 220 mg - Labs Labs: 11/22/16 06:40 11/22/16 06:40 PT 70.9 Seconds (9.9-11.8) H* 11/22/16 06:40 INR 6.56 (0.93-1.08) H* 11/22/16 06:40 APTT 86.4 Seconds (23.7-30.8) H* 11/22/16 06:40 Attending/Attestation - Attestation I have personally seen and examined this patient.: Yes I have fully participated in the care of the patient.: Yes I have reviewed all pertinent clinical information, including history, physical exam and plan: Yes
--- NOTE | 2016-11-22 22:08 | CP.PCM.PN ---
Subjective - Date & Time of Evaluation Date of Evaluation: 11/22/16 Time of Evaluation: 09:30 - Subjective Subjective: Pt s/e at bedside today. States she is having pain from her back. She also states that she feels more alert than the day before. However, she feels depressed and unmotivated. Please see A/P for further reasoning of her hospital course. Patient denies f/ ch/n/v/d/cp/sob Objective - Vital Signs/Intake and Output Vital Signs (last 24 hours): Temp Pulse Resp BP Pulse Ox 97.5 F L 55 L 16 165/66 H 100 11/22/16 16:00 11/22/16 16:00 11/22/16 16:00 11/22/16 16:00 11/22/16 16:00 - Medications Medications: Current Medications Albuterol/Ipratropium (Duoneb 3 Mg/0.5 Mg (3 Ml) Ud) 3 ml IH Q6H PRN PRN Reason: Shortness of Breath Alprazolam (Xanax) 0.5 mg PO TID PRN PRN Reason: Anxiety Amiodarone HCl (Cordarone) 200 mg PO DAILY [facility] Last Admin: 11/22/16 09:30 Dose: 200 mg Amlodipine Besylate (Norvasc) 10 mg PO DAILY [facility] Last Admin: 11/22/16 10:00 Dose: Not Given Ascorbic Acid (Vitamin C 500 Mg Tab) 500 mg PO DAILY [facility] Last Admin: 11/22/16 09:31 Dose: 500 mg Atorvastatin Calcium (Lipitor) 80 mg PO DIN [facility] Last Admin: 11/22/16 17:56 Dose: 80 mg Carbidopa/Levodopa (Sinemet 10/100) 1 tab PO TID [facility] Last Admin: 11/22/16 17:05 Dose: 1 tab Carvedilol (Coreg) 6.25 mg PO Q12 [facility] Last Admin: 11/22/16 09:30 Dose: 6.25 mg Clonidine HCl (Catapres) 0.3 mg PO BID [facility] Last Admin: 11/22/16 19:42 Dose: 0.3 mg Collagenase (Santyl) 0 gm TOP DAILY [facility] Last Admin: 11/22/16 10:00 Dose: 1 applic Escitalopram Oxalate (Lexapro) 10 mg PO DAILY [facility] Last Admin: 11/22/16 09:31 Dose: 10 mg Famotidine (Pepcid) 20 mg PO 1000,2200 [facility] Last Admin: 11/22/16 09:31 Dose: 20 mg Gabapentin (Neurontin) 100 mg PO BID [facility] PRN Reason: Protocol Last Admin: 11/22/16 17:05 Dose: 100 mg Hydralazine HCl (Apresoline) 100 mg PO Q8H [facility] Last Admin: 11/22/16 16:59 Dose: 100 mg Piperacillin Sod/Tazobactam Sod (Zosyn 2.25 Gm In 0.9% 100 Ml) 2.25 gm in 100 mls @ 100 mls/hr IVPB Q8 [facility] PRN Reason: Protocol Stop: 11/28/16 06:01 Last Admin: 11/22/16 14:14 Dose: 100 mls/hr Insulin Human Lispro (Humalog Low) 0 units SC ACHS [facility] PRN Reason: Protocol Last Admin: 11/22/16 16:16 Dose: Not Given Lisinopril (Zestril) 80 mg PO DAILY [facility] Last Admin: 11/22/16 09:30 Dose: 80 mg Primidone (Mysoline) 50 mg PO DAILY [facility] Last Admin: 11/22/16 09:31 Dose: 50 mg Sertraline HCl (Zoloft) 25 mg PO HS [facility] Last Admin: 11/21/16 21:33 Dose: 25 mg Sevelamer HCl (Renagel) 800 mg PO TID [facility] Last Admin: 11/22/16 17:08 Dose: Not Given Thiamine HCl (Vitamin B1 Tab) 100 mg PO DAILY [facility] Last Admin: 11/22/16 09:30 Dose: 100 mg Zinc Sulfate (Zinc Sulfate 220 Mg Cap) 220 mg PO DAILY [facility] Last Admin: 11/22/16 12:50 Dose: 220 mg - Labs Labs: 11/22/16 06:40 11/22/16 06:40 PT 70.9 Seconds (9.9-11.8) H* 11/22/16 06:40 INR 6.56 (0.93-1.08) H* 11/22/16 06:40 APTT 86.4 Seconds (23.7-30.8) H* 11/22/16 06:40 - Additional Findings Additional findings: Constitutional: chronically ill, NAD Head and Neck: atraumatic, normocephalic, neck supple, no jvd, trachea midline, carotid midline, no cervical/head mass Eyes: eomi, julio, nonicteric sclera ENT: no nasal deformity Cardio: rrr, no m/r/g, no carotid bruit, nml s1, s2 Pulm: no accessory muscle use, equal nml breath sounds bilaterally, minor rhonchi in right bases Abd: s/nt/nd, nbs x 4 q, no palpable masses Derm: See additional findings Extr: R sided BKA- dressing in place Neuro: AO x 3 [self and place] - might be A/O X 4, but does not answer questions so hard to elicit. CN II-XII grossly intact Additional: Sacral Decub ulcer- Unstagable 7x8cm; Right Patella- Stage 3 4x5; Left calcaneous- unstagable 3x3 Assessment and Plan - Assessment and Plan (Free Text) Assessment: 66yo female PMHx of ESRD on HD, CAD s/p CABG, seizures, depression, GERD, CHF, IDDM, Parkinsons, DVTs and CVA secondary to antiphospholipid syndrome BIBA from snf for elevated INR and hypoglycemic episodes Plan: Supratherapeutic INR - on admission INR 6.54 - no acute bleed at this time and H&H is stable as per prior medical records - hold Coumadin - recheck INR: 6.54 at admission, then fletcher to 6.75, now back down to 6.56 Look for source of bleed CT Abd/Pelvis: No acute intra-abdominal findings FOBT: not yet collected 11/22/16 - gave one dose of 10 mg Vit K Hypoglycemic episodes - on admission POCG 115 and random glucose 85 - Accucheck ACHS - RISS low dose - as per family, patient had decreased appetite - CT abd/pelvis ordered- f/u official read - Head CT ordered for AMS: no acute changes - hold basal insulin - Gabapentin 100mg po bid - Dietary consulted- f/u reccs - Had another episode of hypoglycemia 11/22/16: gave one dose of glucose po. Glucose back within normal range. Held insulin for tonight (11/22/16) Leukocytosis - 17.5 on admission - afebrile - likely sacral decubitus ulcer source - f/u wound culture, blood culture, urine culture - ID Dr. Wood consulted Based on previous cultures, started patient on intermittent Vancomycin and Zosyn pending blood and wound cx No recommendation for any pneumonia ascertained from note at this time Sacral decubitus ulcer - Afebrile, leukocytosis of 17.5 on admission - Unstageable ulceration - f/u wound culture - Zosyn 2.25 IVPB q8 started on 11/21 - multivitamin daily - Vitamin C 500mg po daily - Zinc 220mg po daily - ID Dr. Wood consulted- see above - Wound care consulted Lower extremity wounds - s/p Angio 11/07: critical stenosis of L anterior tibial A origin; successful angioplasty of L anterior tibial A origin with 3mm balloon; patent L femoral- popliteal prosthetic bypass graft, severe L tibial and pedal occlusive disease. There is 1 vessel runoff via the left anterior tibial artery; L posterior tibial artery and plantar arch are occluded - collagenase foam dressing qdaily - continue Multipodus boots and offloading - Podiatry consulted Wound culture taken 11/22/16: results pending Dressed wound with BARBARA davalos. Pt to continue offloading left lower extremity in multipodis boot while in bed. Continue IV antibiotics as per ID Hx of Anemia - likely anemia of chronic disease - Monitor H&H Hx of Hypertension - Amiodarone 200mg po daily - Norvasc 10mg po daily - Lisinopril 80mg po daily - Hydralazine 100mg po q8h - Coreg 6.25mg po q12 - Clonidine 0.3mg po bid - Monitor and adjust BP medications as needed Hx of ESRD on HD (//Fri) - Renagel 800mg po tid - Nephrology Dr Eller consulted- f/u reccs Hx of CAD s/p CABG - ASA 81mg po daily - Lipitor 80mg po hs Hx of Antiphospholipid syndrome - Coumadin on hold Hx of Depression and anxiety - Xanax 0.5mg po tid - Lexapro 10mg po daily Hx of Parkinsons - Primodone 50mg po daily - Sinemet 1 tab po daily DVT ppx: VTE ppx c/i secondary to supratherapeutic INR and SCDs c/i secondary to R BKA GI ppx: Pepcid 20mg po bid Diet: Heart healthy mod consistent carb renal dialysis diet PT/OT/Dietary ordered Dispo: Case discussed with Dr. Morton TKS PGY 1
--- NOTE | 2016-11-23 01:25 | PN ---
DATE: 11/22/2016 SUBJECTIVE: The patient is in bed, in no acute distress. PHYSICAL EXAMINATION: VITAL SIGNS: Temperature is 98, blood pressure is 112/70, respiratory rate is 16. HEENT: Unremarkable. NECK: Supple. LUNGS: Decreased breath sounds. HEART: Normal S1 and S2. ABDOMEN: Soft. LABORATORY DATA: Reveals a white count of 13,000, hemoglobin of 8, platelets of 405. Chemistry reveals a BUN of 23, creatinine of 3. Urinalysis is noted. Microbiology reveals a knee culture with gram-negative walter. Sacral culture is gram-negative walter. The blood cultures have no growth. Review of orders reveals the patient to be on vancomycin intermittently and Zosyn. ASSESSMENT AND PLAN: A 66-year-old female with sacral ulcer decubiti, with a history of coronary artery disease, chronic congestive heart failure, end-stage renal disease, on hemodialysis, anti-phospholipid antibody syndrome, currently on intermittent vancomycin and Zosyn. We will check on the identification and sensitivity. Overall prognosis is poor for this patient with multiple medical pathologies. Elijah Stuart MD
[2016-11-23] MEDS: Piperacillin/Tazobact 2.25gm 2.25 GM/100 ML BAG IVPB SCH ×2 (05:25→14:56)
[2016-11-23 06:59] LABS: RED CELL DISTRIBUTION WIDTH 19.1 % (11.5-14.5)
[2016-11-23 07:15] LABS: ALB/GLOB RATIO 0.8 (1.1-1.8); BILIRUBIN,TOTAL 0.5 mg/dL (0.2-1.3); CALCIUM 8.7 mg/dL (8.4-10.5); POTASSIUM 3.5 mmol/L (3.6-5.0); TOTAL PROTEIN 6.5 g/dL (5.8-8.3)
[2016-11-23 07:25] LABS: INR 5.08 (0.93-1.08)
[2016-11-23] MEDS: Insulin Lispro (humaLOG) LOW Coverage SC SCH ×3 (07:33→16:32)
[2016-11-23 07:38] LABS: HEMATOCRIT 25.6 % (36.0-48.0); MEAN CELL VOLUME 83.7 fl (80.0-105.0); MEAN CORPUSCULAR HEMOGLOBIN 25.2 pg (25.0-35.0); MEAN CORPUSCULAR HGB CONC 30.1 g/dl (31.0-37.0); MEAN PLATELET VOLUME 10.2 fl (7.0-11.0); WHITE BLOOD COUNT 12.6 10^3/ul (4.5-11.0)
[2016-11-23 08:35] LABS: BASO # 0.02 K/mm3 (0.0-2.0); BASO % 0.2 % (0.0-3.0); EOS # 0.2 (0.0-0.7); EOS % 1.3 % (1.5-5.0); GRAN # 11.28 (1.4-6.5); GRAN % 86.5 % (50.0-68.0); HEMATOCRIT 24.8 % (36.0-48.0); LYMPH # 0.8 (1.2-3.4); LYMPH % 6.4 % (22.0-35.0); MEAN CELL VOLUME 82.1 fl (80.0-105.0); MEAN CORPUSCULAR HEMOGLOBIN 25.2 pg (25.0-35.0); MEAN CORPUSCULAR HGB CONC 30.6 g/dl (31.0-37.0); MEAN PLATELET VOLUME 10.1 fl (7.0-11.0); MONO # 0.7 (0.1-0.6); MONO % 5.6 % (1.0-6.0); RED CELL DISTRIBUTION WIDTH 18.9 % (11.5-14.5)
[2016-11-23] MEDS: Collagenase 250 Units/gm Ointment(30 gm) TOP SCH (11:56)
[2016-11-23 13:04] LABS: HEMATOCRIT 32.4 % (36.0-48.0)
--- NOTE | 2016-11-23 17:47 | CP.PCM.PN ---
Subjective - Date & Time of Evaluation Date of Evaluation: 11/23/16 Time of Evaluation: 09:45 - Subjective Subjective: Pt s/e bedside. Pt got dialysis today. Patient feels more alert and oriented today, but still complains of pain from her ulcers. Patient states that she is also feeling more depressed today than yesterday. Pt denies f/ch/n/v/d/sob/cp. No further complaints. Objective - Vital Signs/Intake and Output Vital Signs (last 24 hours): Temp Pulse Resp BP Pulse Ox 98.0 F 80 19 186/74 H 100 11/23/16 11:09 11/23/16 11:57 11/23/16 11:09 11/23/16 17:19 11/22/16 16:00 Intake and Output: 11/23/16 11/23/16 06:59 18:59 Intake Total 240 255 Output Total 1 Balance 239 255 - Medications Medications: Current Medications Albuterol/Ipratropium (Duoneb 3 Mg/0.5 Mg (3 Ml) Ud) 3 ml IH Q6H PRN PRN Reason: Shortness of Breath Alprazolam (Xanax) 0.5 mg PO TID PRN PRN Reason: Anxiety Amiodarone HCl (Cordarone) 200 mg PO DAILY [facility] Last Admin: 11/23/16 11:47 Dose: 200 mg Amlodipine Besylate (Norvasc) 10 mg PO DAILY [facility] Last Admin: 11/23/16 11:56 Dose: 10 mg Ascorbic Acid (Vitamin C 500 Mg Tab) 500 mg PO DAILY [facility] Last Admin: 11/23/16 11:48 Dose: 500 mg Atorvastatin Calcium (Lipitor) 80 mg PO DIN [facility] Last Admin: 11/23/16 17:19 Dose: 80 mg Carbidopa/Levodopa (Sinemet 10/100) 1 tab PO TID [facility] Last Admin: 11/23/16 17:18 Dose: 1 tab Carvedilol (Coreg) 6.25 mg PO Q12 [facility] Last Admin: 11/23/16 11:49 Dose: 6.25 mg Clonidine HCl (Catapres) 0.3 mg PO BID [facility] Last Admin: 11/23/16 17:19 Dose: 0.3 mg Collagenase (Santyl) 0 gm TOP DAILY [facility] Last Admin: 11/23/16 11:56 Dose: 1 applic Escitalopram Oxalate (Lexapro) 10 mg PO DAILY [facility] Last Admin: 11/23/16 11:48 Dose: 10 mg Famotidine (Pepcid) 20 mg PO 1000,2200 [facility] Last Admin: 11/23/16 11:48 Dose: 20 mg Gabapentin (Neurontin) 100 mg PO BID [facility] PRN Reason: Protocol Last Admin: 11/23/16 17:19 Dose: 100 mg Hydralazine HCl (Apresoline) 100 mg PO Q8H [facility] Last Admin: 11/23/16 14:50 Dose: 100 mg Piperacillin Sod/Tazobactam Sod (Zosyn 2.25 Gm In 0.9% 100 Ml) 2.25 gm in 100 mls @ 100 mls/hr IVPB Q8 [facility] PRN Reason: Protocol Stop: 11/28/16 06:01 Last Admin: 11/23/16 14:56 Dose: 100 mls/hr Insulin Human Lispro (Humalog Low) 0 units SC ACHS [facility] PRN Reason: Protocol Last Admin: 11/22/16 22:34 Dose: Not Given Lisinopril (Zestril) 80 mg PO DAILY [facility] Last Admin: 11/23/16 11:47 Dose: 80 mg Primidone (Mysoline) 50 mg PO DAILY [facility] Last Admin: 11/23/16 11:49 Dose: 50 mg Sertraline HCl (Zoloft) 25 mg PO HS [facility] Last Admin: 11/22/16 22:45 Dose: 25 mg Sevelamer HCl (Renagel) 800 mg PO TID [facility] Last Admin: 11/23/16 17:19 Dose: 800 mg Thiamine HCl (Vitamin B1 Tab) 100 mg PO DAILY [facility] Last Admin: 11/23/16 11:57 Dose: 100 mg Zinc Sulfate (Zinc Sulfate 220 Mg Cap) 220 mg PO DAILY [facility] Last Admin: 11/23/16 11:48 Dose: 220 mg - Labs Labs: 11/23/16 12:30 11/23/16 06:40 PT 54.9 Seconds (9.9-11.8) H* 11/23/16 06:40 INR 5.08 (0.93-1.08) H* 11/23/16 06:40 APTT 86.4 Seconds (23.7-30.8) H* 11/22/16 06:40 - Additional Findings Additional findings: Constitutional: chronically ill, NAD Head and Neck: atraumatic, normocephalic, neck supple, no jvd, trachea midline, carotid midline, no cervical/head mass Eyes: eomi, julio, nonicteric sclera ENT: no nasal deformity Cardio: rrr, no m/r/g, no carotid bruit, nml s1, s2 Pulm: no accessory muscle use, equal nml breath sounds bilaterally, minor rhonchi in right bases Abd: s/nt/nd, nbs x 4 q, no palpable masses Derm: See additional findings Extr: R sided BKA- dressing in place Neuro: AO x 3 [self and place] - might be A/O X 4, but does not answer questions so hard to elicit. CN II-XII grossly intact Additional: Sacral Decub ulcer- Unstagable 7x8cm; Right Patella- Stage 3 4x5; Left calcaneous- unstagable 3x3 Assessment and Plan - Assessment and Plan (Free Text) Assessment: 66yo female PMHx of ESRD on HD, CAD s/p CABG, seizures, depression, GERD, CHF, IDDM, Parkinsons, DVTs and CVA secondary to antiphospholipid syndrome BIBA from [facility] for elevated INR and hypoglycemic episodes Plan: Plan: Supratherapeutic INR - on admission INR 6.54 - no acute bleed at this time and H&H is stable as per prior medical records - hold Coumadin - recheck INR: 6.54 at admission, then fletcher to 6.75, now back down to 6.56 Look for source of bleed CT Abd/Pelvis: No acute intra-abdominal findings FOBT: not yet collected 11/22/16 - gave second dose of 10 mg Vit K Hypoglycemic episodes - on admission POCG 115 and random glucose 85 - Accucheck ACHS - RISS low dose - as per family, patient had decreased appetite - CT abd/pelvis ordered- f/u official read - Head CT ordered for AMS: no acute changes - hold basal insulin - Gabapentin 100mg po bid - Dietary consulted- f/u reccs - Had another episode of hypoglycemia 11/22/16: gave one dose of glucose po. Glucose back within normal range. Held insulin for tonight (11/22/16) Leukocytosis - 17.5 on admission - afebrile - likely sacral decubitus ulcer source - f/u wound culture, blood culture, urine culture - ID Dr. Wood consulted Based on previous cultures, started patient on intermittent Vancomycin and Zosyn pending blood and wound cx No recommendation for any pneumonia ascertained from note at this time Sacral decubitus ulcer - Afebrile, leukocytosis of 17.5 on admission - Unstageable ulceration - f/u wound culture - Zosyn 2.25 IVPB q8 started on 11/21 - multivitamin daily - Vitamin C 500mg po daily - Zinc 220mg po daily - ID Dr. Wood consulted- see above - Wound care consulted Lower extremity wounds - s/p Angio 11/07: critical stenosis of L anterior tibial A origin; successful angioplasty of L anterior tibial A origin with 3mm balloon; patent L femoral- popliteal prosthetic bypass graft, severe L tibial and pedal occlusive disease. There is 1 vessel runoff via the left anterior tibial artery; L posterior tibial artery and plantar arch are occluded - collagenase foam dressing qdaily - continue Multipodus boots and offloading - Podiatry consulted Wound culture taken 11/22/16: results pending Dressed wound with BARBARA davalos. Pt to continue offloading left lower extremity in multipodis boot while in bed. Continue IV antibiotics as per ID Hx of Anemia - likely anemia of chronic disease - Monitor H&H Hx of Hypertension - Amiodarone 200mg po daily - Norvasc 10mg po daily - Lisinopril 80mg po daily - Hydralazine 100mg po q8h - Coreg 6.25mg po q12 - Clonidine 0.3mg po bid - Monitor and adjust BP medications as needed Hx of ESRD on HD (/Fri) - Renagel 800mg po tid - Nephrology Dr Eller consulted- f/u reccs Hx of CAD s/p CABG - ASA 81mg po daily - Lipitor 80mg po hs Hx of Antiphospholipid syndrome - Coumadin on hold Hx of Depression and anxiety - Xanax 0.5mg po tid - Lexapro 10mg po daily Hx of Parkinsons - Primodone 50mg po daily - Sinemet 1 tab po daily DVT ppx: VTE ppx c/i secondary to supratherapeutic INR and SCDs c/i secondary to R BKA GI ppx: Pepcid 20mg po bid Diet: Heart healthy mod consistent carb renal dialysis diet PT/OT/Dietary ordered Dispo: Case discussed with Dr. Morton TKS PGY 1
--- NOTE | 2016-11-23 23:48 | PN ---
CONTINUATION OF DICTATION ASSESSMENT: 1. End-stage renal disease, on hemodialysis. 2. Coronary artery disease and stenting. 3. 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 4. Pressure ulcer in the sacrum. 5. Secondary hyperparathyroidism. 6. Diabetes type 2. 7. Peripheral arterial disease. 8. Dyslipidemia. 9. Chronic anemia. PLAN: The patient is currently comfortable. The patient was dialyzed today. The patient's Coumadin is on hold. The patient was given vitamin K for the coagulopathy. She is getting wound care. She was transfused today. She is on clonidine for her hypertension. I will increase her clonidine to q. 8 hours. The patient is on primidone, is going to be continuing on Renagel for the secondary hypoparathyroidism. She is on Percocet. She is on Sinemet for her Parkinson's. She is on Neurontin for neuropathy. She is on lisinopril and amlodipine for her hypertension as well. Bebo Eller MD
[2016-11-24] MEDS: Insulin Lispro (humaLOG) LOW Coverage SC SCH ×4 (00:36→22:07)
[2016-11-24 06:54] LABS: INR 3.82 (0.93-1.08)
--- NOTE | 2016-11-24 07:36 | PN ---
11/23/2016 SUBJECTIVE: The patient in bed, in no acute distress, nontoxic. PHYSICAL EXAMINATION: VITAL SIGNS: Temperature is 98, blood pressure is 170/60 and respiratory rate is 16. HEENT: Unremarkable. NECK: Supple. LUNGS: Decreased breath sound. HEART: Normal S1 and S2. ABDOMEN: Soft, nontender. LABORATORY DATA: Reveals a white count of 13,000 and hemoglobin of 10. Chemistries reveal BUN of 26, creatinine of 3.6. Urinalysis is noted. Microbiology reveals E. coli and Proteus mirabilis from the right knee; roman-sensitive E. coli and roman-sensitive Proteus mirabilis. The patient also has Pseudomonas and a gram-negative walter from the left knee ulcer, sensitive to Pseudomonas, sensitive to meropenem. The patient also has Pseudomonas E. coli from the sacral ulcer, which is sensitive to imipenem. The patient does have E. coli in the urine which is ESBL. ASSESSMENT AND PLAN: This is 66-year-old female with multiple decubitus ulcers; sacral ulcers; history of coronary artery disease; chronic congestive heart failure; end-stage renal disease, on hemodialysis; antiphospholipid antibody syndrome, currently on Zosyn. Urine culture positive for Escherichia coli, extended-spectrum beta-lactamases. We will discontinue the Zosyn and use meropenem, it could be short course of therapy. Overall, prognosis of this patient is quite poor. Case discussed with Dr. Morton. We will adjust the meropenem to a renal failure at 250 mg q.12 and overall, prognosis is poor. Elijah Stuart MD
[2016-11-24 08:40] VITALS: RESP 18
[2016-11-24] MEDS: Collagenase 250 Units/gm Ointment(30 gm) TOP SCH (10:52)
[2016-11-24 11:32] LABS: ALB/GLOB RATIO 0.8 (1.1-1.8); BILIRUBIN,TOTAL 0.6 mg/dL (0.2-1.3); CALCIUM 9.7 mg/dL (8.4-10.5); POTASSIUM 4.1 mmol/L (3.6-5.0); TOTAL PROTEIN 6.9 g/dL (5.8-8.3)
[2016-11-24 11:43] LABS: BASO # 0.03 K/mm3 (0.0-2.0); BASO % 0.3 % (0.0-3.0); EOS # 0.1 (0.0-0.7); EOS % 1.2 % (1.5-5.0); GRAN # 10.02 (1.4-6.5); GRAN % 84.1 % (50.0-68.0); HEMATOCRIT 30.4 % (36.0-48.0); LYMPH # 0.9 (1.2-3.4); LYMPH % 7.8 % (22.0-35.0); MEAN CELL VOLUME 84.4 fl (80.0-105.0); MEAN CORPUSCULAR HEMOGLOBIN 26.7 pg (25.0-35.0); MEAN CORPUSCULAR HGB CONC 31.6 g/dl (31.0-37.0); MEAN PLATELET VOLUME 10.8 fl (7.0-11.0); MONO # 0.8 (0.1-0.6); MONO % 6.6 % (1.0-6.0); RED CELL DISTRIBUTION WIDTH 18.3 % (11.5-14.5); WHITE BLOOD COUNT 11.9 10^3/ul (4.5-11.0)
--- NOTE | 2016-11-24 13:05 | CP.PCM.PN ---
<Tho Farias - Last Filed: 11/24/16 13:02> Subjective - Date & Time of Evaluation Date of Evaluation: 11/24/16 Time of Evaluation: 13:02 - Subjective Subjective: 66 year old female patietn was seen at bedside concerning left heel deep tissue injury and ulcer. She admits to pain to heel but denies any acute overnight events. Multipodus boot in place this morning. Patient denies any further pedal complaints at this time. Patient denies N/V/F/C/CP/SOB Objective - Vital Signs/Intake and Output Vital Signs (last 24 hours): Temp Pulse Resp BP Pulse Ox 98.9 F 60 18 200/68 H 99 11/24/16 08:39 11/24/16 10:51 11/24/16 08:39 11/24/16 10:51 11/24/16 08:39 Intake and Output: 11/24/16 11/24/16 06:59 18:59 Intake Total 180 Balance 180 - Medications Medications: Current Medications Albuterol/Ipratropium (Duoneb 3 Mg/0.5 Mg (3 Ml) Ud) 3 ml IH Q6H PRN PRN Reason: Shortness of Breath Alprazolam (Xanax) 0.5 mg PO TID PRN PRN Reason: Anxiety Last Admin: 11/23/16 21:54 Dose: 0.5 mg Amiodarone HCl (Cordarone) 200 mg PO DAILY [facility] Last Admin: 11/24/16 10:51 Dose: 200 mg Amlodipine Besylate (Norvasc) 10 mg PO DAILY [facility] Last Admin: 11/24/16 10:51 Dose: 10 mg Ascorbic Acid (Vitamin C 500 Mg Tab) 500 mg PO DAILY [facility] Last Admin: 11/24/16 10:51 Dose: 500 mg Atorvastatin Calcium (Lipitor) 80 mg PO DIN [facility] Last Admin: 11/23/16 17:19 Dose: 80 mg Carbidopa/Levodopa (Sinemet 10/100) 1 tab PO TID [facility] Last Admin: 11/24/16 10:54 Dose: 1 tab Carvedilol (Coreg) 6.25 mg PO Q12 [facility] Last Admin: 11/24/16 10:50 Dose: 6.25 mg Clonidine HCl (Catapres) 0.3 mg PO Q8 [facility] Last Admin: 11/24/16 05:35 Dose: 0.3 mg Collagenase (Santyl) 0 gm TOP DAILY [facility] Last Admin: 11/24/16 10:52 Dose: 1 applic Escitalopram Oxalate (Lexapro) 10 mg PO DAILY [facility] Last Admin: 11/24/16 10:50 Dose: 10 mg Famotidine (Pepcid) 20 mg PO 1000,2200 [facility] Last Admin: 11/24/16 10:50 Dose: 20 mg Gabapentin (Neurontin) 100 mg PO BID [facility] PRN Reason: Protocol Last Admin: 11/24/16 10:51 Dose: 100 mg Hydralazine HCl (Apresoline) 100 mg PO Q8H [facility] Last Admin: 11/24/16 08:33 Dose: 100 mg Meropenem 250 mg/ Sodium (Chloride) 100 mls @ 100 mls/hr IVPB Q12H [facility] PRN Reason: Protocol Stop: 11/30/16 21:31 Last Admin: 11/24/16 10:51 Dose: 100 mls/hr Insulin Human Lispro (Humalog Low) 0 units SC ACHS [facility] PRN Reason: Protocol Last Admin: 11/24/16 00:36 Dose: Not Given Lisinopril (Zestril) 80 mg PO DAILY [facility] Last Admin: 11/24/16 10:50 Dose: 80 mg Primidone (Mysoline) 50 mg PO DAILY [facility] Last Admin: 11/24/16 10:50 Dose: 50 mg Sertraline HCl (Zoloft) 25 mg PO HS [facility] Last Admin: 11/23/16 21:54 Dose: 25 mg Sevelamer HCl (Renagel) 800 mg PO TID [facility] Last Admin: 11/24/16 10:50 Dose: 800 mg Thiamine HCl (Vitamin B1 Tab) 100 mg PO DAILY [facility] Last Admin: 11/24/16 10:50 Dose: 100 mg Zinc Sulfate (Zinc Sulfate 220 Mg Cap) 220 mg PO DAILY [facility] Last Admin: 11/24/16 10:54 Dose: 220 mg - Labs Labs: 11/24/16 10:10 11/24/16 10:10 PT 41.3 Seconds (9.9-11.8) H* 11/24/16 06:00 INR 3.82 (0.93-1.08) H* 11/24/16 06:00 APTT 86.4 Seconds (23.7-30.8) H* 11/22/16 06:40 - Constitutional Appears: Well, Non-toxic, No Acute Distress - Head Exam Head Exam: ATRAUMATIC - Extremities Exam Additional comments: Dressing clean, dry, and intact to left LLE. RLE is absent due to prior below knee amputation. Neuro-vascular status grossly diminished to left lower extremity at level of digits. DERM: Left heel: Unstagable necrotic eschar 4cm x4cm No noted tract to bone. Non- blanchable erythema noted. Mild edema noted, no abscess or pus noted, minimal drainage on the dressing. - Neurological Exam Neurological Exam: Alert, Awake, Oriented x3 - Psychiatric Exam Psychiatric exam: Normal Affect, Normal Mood - Skin Skin Exam: Normal Color, Warm Assessment and Plan - Assessment and Plan (Free Text) Assessment: 66 year old female with 1) Non-stagable ischemic eschar to left heel. Plan: Pt seen and evaluated at bedside Chart, labs, and vitals reviewed Wound culture Left heel : No growth, Knee: Preliminary E.Coli, Proteus Mirabilis, Pesudomonas, Left heel dressed with Santyl, DSD Pt to continue offloading left lower extremity in multipodis boot while in bed. Continue IV antibiotics as per ID Podiatry will continue to follow while in house. <Elmira Issa - Last Filed: 12/01/16 19:40> Objective - Vital Signs/Intake and Output Vital Signs (last 24 hours): Temp Pulse Resp BP Pulse Ox 98.2 F 62 18 180/68 H 97 11/25/16 16:00 11/25/16 16:00 11/25/16 16:00 11/25/16 16:00 11/25/16 16:00 - Labs Labs: 11/25/16 05:50 11/25/16 05:50 PT 34.3 Seconds (9.9-11.8) H* 11/25/16 05:50 INR 3.18 (0.93-1.08) H 11/25/16 05:50 APTT 86.4 Seconds (23.7-30.8) H* 11/22/16 06:40 Attending/Attestation - Attestation I have personally seen and examined this patient.: Yes I have fully participated in the care of the patient.: Yes I have reviewed all pertinent clinical information, including history, physical exam and plan: Yes
--- NOTE | 2016-11-24 14:33 | PN ---
DATE: 11/24/2016 SUBJECTIVE: The patient is bed and in no acute distress. PHYSICAL EXAMINATION: VITAL SIGNS: Temperature is 98, blood pressure is 200/60, and respiratory rate of 18. HEENT: Unremarkable. NECK: Supple. LUNGS: Decreased breath sounds. HEART: Normal S1 and S2. ABDOMEN: Soft and nontender. LABORATORY DATA: Examination reveals a white count of 13,000 and hemoglobin of 7, and platelets of 333. The patient's creatinine is 3.6. Review of orders revealed the patient to be on meropenem. Review of microbiology reveals E. coli and Proteus, and right leg cultures and Pseudomonas and a Gram-negative walter in the left. Knee culture and urine culture is E. coli, which is ESBL, E. coli. ASSESSMENT AND PLAN: This is a 66-year-old female with multiple decubitus ulcers; sacral ulcers; history of coronary artery disease; chronic congestive heart failure; end-stage renal disease, on hemodialysis; antiphospholipid antibody syndrome, and currently on meropenem day number 2, local wound care with completed short course of therapy. Overall, prognosis is quite poor for this patient. Elijah Stuart MD
--- NOTE | 2016-11-24 16:36 | CP.PCM.PN ---
Subjective - Date & Time of Evaluation Date of Evaluation: 11/24/16 Time of Evaluation: 08:20 - Subjective Subjective: Pt s/e bedside. Pt feels pain from her ulcers and leg today. Pt denies f/ch/n/ v/d/sob/cp Objective - Vital Signs/Intake and Output Vital Signs (last 24 hours): Temp Pulse Resp BP Pulse Ox 98.9 F 61 18 181/63 H 99 11/24/16 08:39 11/24/16 14:44 11/24/16 08:39 11/24/16 14:44 11/24/16 08:39 Intake and Output: 11/24/16 11/24/16 06:59 18:59 Intake Total 180 120 Balance 180 120 - Medications Medications: Current Medications Albuterol/Ipratropium (Duoneb 3 Mg/0.5 Mg (3 Ml) Ud) 3 ml IH Q6H PRN PRN Reason: Shortness of Breath Alprazolam (Xanax) 0.5 mg PO TID PRN PRN Reason: Anxiety Last Admin: 11/23/16 21:54 Dose: 0.5 mg Amiodarone HCl (Cordarone) 200 mg PO DAILY [facility] Last Admin: 11/24/16 10:51 Dose: 200 mg Amlodipine Besylate (Norvasc) 10 mg PO DAILY [facility] Last Admin: 11/24/16 10:51 Dose: 10 mg Ascorbic Acid (Vitamin C 500 Mg Tab) 500 mg PO DAILY [facility] Last Admin: 11/24/16 10:51 Dose: 500 mg Atorvastatin Calcium (Lipitor) 80 mg PO DIN [facility] Last Admin: 11/23/16 17:19 Dose: 80 mg Carbidopa/Levodopa (Sinemet 10/100) 1 tab PO TID [facility] Last Admin: 11/24/16 14:44 Dose: 1 tab Carvedilol (Coreg) 6.25 mg PO Q12 [facility] Last Admin: 11/24/16 10:50 Dose: 6.25 mg Clonidine HCl (Catapres) 0.3 mg PO Q8 [facility] Last Admin: 11/24/16 14:44 Dose: 0.3 mg Collagenase (Santyl) 0 gm TOP DAILY [facility] Last Admin: 11/24/16 10:52 Dose: 1 applic Escitalopram Oxalate (Lexapro) 10 mg PO DAILY [facility] Last Admin: 11/24/16 10:50 Dose: 10 mg Famotidine (Pepcid) 20 mg PO 1000,2200 [facility] Last Admin: 11/24/16 10:50 Dose: 20 mg Gabapentin (Neurontin) 100 mg PO BID [facility] PRN Reason: Protocol Last Admin: 11/24/16 14:56 Dose: Not Given Hydralazine HCl (Apresoline) 100 mg PO Q8H [facility] Last Admin: 11/24/16 08:33 Dose: 100 mg Meropenem 250 mg/ Sodium (Chloride) 100 mls @ 100 mls/hr IVPB Q12H [facility] PRN Reason: Protocol Stop: 11/30/16 21:31 Last Admin: 11/24/16 10:51 Dose: 100 mls/hr Insulin Human Lispro (Humalog Low) 0 units SC ACHS [facility] PRN Reason: Protocol Last Admin: 11/24/16 00:36 Dose: Not Given Lisinopril (Zestril) 80 mg PO DAILY [facility] Last Admin: 11/24/16 10:50 Dose: 80 mg Primidone (Mysoline) 50 mg PO DAILY [facility] Last Admin: 11/24/16 10:50 Dose: 50 mg Sertraline HCl (Zoloft) 25 mg PO HS [facility] Last Admin: 11/23/16 21:54 Dose: 25 mg Sevelamer HCl (Renagel) 800 mg PO TID [facility] Last Admin: 11/24/16 14:55 Dose: 800 mg Thiamine HCl (Vitamin B1 Tab) 100 mg PO DAILY [facility] Last Admin: 11/24/16 10:50 Dose: 100 mg Zinc Sulfate (Zinc Sulfate 220 Mg Cap) 220 mg PO DAILY [facility] Last Admin: 11/24/16 14:55 Dose: Not Given - Labs Labs: 11/24/16 10:10 11/24/16 10:10 PT 41.3 Seconds (9.9-11.8) H* 11/24/16 06:00 INR 3.82 (0.93-1.08) H* 11/24/16 06:00 APTT 86.4 Seconds (23.7-30.8) H* 11/22/16 06:40 - Additional Findings Additional findings: Constitutional: chronically ill, NAD Head and Neck: atraumatic, normocephalic, neck supple, no jvd, trachea midline, carotid midline, no cervical/head mass Eyes: eomi, julio, nonicteric sclera ENT: no nasal deformity Cardio: rrr, no m/r/g, no carotid bruit, nml s1, s2 Pulm: no accessory muscle use, equal nml breath sounds bilaterally, minor rhonchi in right bases Abd: s/nt/nd, nbs x 4 q, no palpable masses Derm: See additional findings Extr: R sided BKA- dressing in place Neuro: AO x 3 [self and place] - might be A/O X 4, but does not answer questions so hard to elicit. CN II-XII grossly intact Additional: Sacral Decub ulcer- Unstagable 7x8cm; Right Patella- Stage 3 4x5; Left calcaneous- unstagable 3x3 Assessment and Plan - Assessment and Plan (Free Text) Assessment: 66yo female PMHx of ESRD on HD, CAD s/p CABG, seizures, depression, GERD, CHF, IDDM, Parkinsons, DVTs and CVA secondary to antiphospholipid syndrome BIBA from [facility] for elevated INR and hypoglycemic episodes Plan: Supratherapeutic INR - on admission INR 6.54 - no acute bleed at this time and H&H is stable as per prior medical records - hold Coumadin - recheck INR: 6.54 at admission, then fletcher to 6.75, now back down to 3.82 Look for source of bleed CT Abd/Pelvis: No acute intra-abdominal findings FOBT: not yet collected 11/22/16 - gave third dose of Vit K 11/24; 10 mg, 10 mg, and 2.5 mg Hypoglycemic episodes - on admission POCG 115 and random glucose 85 - Accucheck ACHS - RISS low dose - as per family, patient had decreased appetite - CT abd/pelvis ordered- f/u official read - Head CT ordered for AMS: no acute changes - hold basal insulin - Gabapentin 100mg po bid - Dietary consulted- f/u reccs - Had another episode of hypoglycemia 11/22/16: gave one dose of glucose po. Glucose back within normal range. Held insulin for tonight (11/22/16) Leukocytosis - 17.5 on admission - afebrile - likely sacral decubitus ulcer source - f/u wound culture, blood culture, urine culture - ID Dr. Wood consulted Based on previous cultures, started patient on intermittent Vancomycin and Zosyn pending blood and wound cx No recommendation for any pneumonia ascertained from note at this time Sacral decubitus ulcer - Afebrile, leukocytosis of 17.5 on admission - Unstageable ulceration - f/u wound culture - Zosyn 2.25 IVPB q8 started on 11/21 - multivitamin daily - Vitamin C 500mg po daily - Zinc 220mg po daily - ID Dr. Wood consulted- see above - Wound care consulted Lower extremity wounds - s/p Angio 11/07: critical stenosis of L anterior tibial A origin; successful angioplasty of L anterior tibial A origin with 3mm balloon; patent L femoral- popliteal prosthetic bypass graft, severe L tibial and pedal occlusive disease. There is 1 vessel runoff via the left anterior tibial artery; L posterior tibial artery and plantar arch are occluded - collagenase foam dressing qdaily - continue Multipodus boots and offloading - Podiatry consulted Wound culture taken 11/22/16: results pending Dressed wound with BARBARA davalos. Pt to continue offloading left lower extremity in multipodis boot while in bed. Continue IV antibiotics as per ID Hx of Anemia - likely anemia of chronic disease - Monitor H&H Hx of Hypertension - Amiodarone 200mg po daily - Norvasc 10mg po daily - Lisinopril 80mg po daily - Hydralazine 100mg po q8h - Coreg 6.25mg po q12 - Clonidine 0.3mg po bid - Monitor and adjust BP medications as needed Hx of ESRD on HD (//Fri) - Renagel 800mg po tid - Nephrology Dr Eller consulted- f/u reccs Hx of CAD s/p CABG - ASA 81mg po daily - Lipitor 80mg po hs Hx of Antiphospholipid syndrome - Coumadin on hold Hx of Depression and anxiety - Xanax 0.5mg po tid - Lexapro 10mg po daily Hx of Parkinsons - Primodone 50mg po daily - Sinemet 1 tab po daily DVT ppx: VTE ppx c/i secondary to supratherapeutic INR and SCDs c/i secondary to R BKA GI ppx: Pepcid 20mg po bid Diet: Heart healthy mod consistent carb renal dialysis diet PT/OT/Dietary ordered Dispo: Case discussed with Dr. Morton TKS PGY 1
[2016-11-25 07:17] LABS: BASO # 0.02 K/mm3 (0.0-2.0); BASO % 0.2 % (0.0-3.0); EOS # 0.1 (0.0-0.7); EOS % 1.4 % (1.5-5.0); GRAN # 8.05 (1.4-6.5); GRAN % 81.9 % (50.0-68.0); HEMATOCRIT 32.8 % (36.0-48.0); LYMPH # 0.9 (1.2-3.4); LYMPH % 9.6 % (22.0-35.0); MEAN CELL VOLUME 83.9 fl (80.0-105.0); MEAN CORPUSCULAR HEMOGLOBIN 26.1 pg (25.0-35.0); MEAN CORPUSCULAR HGB CONC 31.1 g/dl (31.0-37.0); MEAN PLATELET VOLUME 10.4 fl (7.0-11.0); MONO # 0.7 (0.1-0.6); MONO % 6.9 % (1.0-6.0); RED CELL DISTRIBUTION WIDTH 18.6 % (11.5-14.5); WHITE BLOOD COUNT 9.8 10^3/ul (4.5-11.0)
[2016-11-25 07:26] LABS: INR 3.18 (0.93-1.08)
[2016-11-25 07:30] LABS: ALB/GLOB RATIO 0.8 (1.1-1.8); BILIRUBIN,TOTAL 0.7 mg/dL (0.2-1.3); POTASSIUM 3.9 mmol/L (3.6-5.0); TOTAL PROTEIN 7.3 g/dL (5.8-8.3)
[2016-11-25] MEDS: Insulin Lispro (humaLOG) LOW Coverage SC SCH ×3 (08:22→18:57)
--- NOTE | 2016-11-25 09:24 | PN ---
DATE: 11/23/2016 SUBJECTIVE: Right now, no chest pain, no headache, no dizziness. PHYSICAL EXAMINATION: VITAL SIGNS: Temperature is 98, pulse of 66, blood pressure is 209/71 and respirations 19. Repeat blood pressure 186/74. GENERAL: The patient is lying in bed, flat, comfortable. HEENT: No oral lesion. Anicteric sclerae. Moist mucosa. NECK: No JVD, adenopathy, or thyromegaly. CARDIOVASCULAR: S1 and S2, regular. No murmurs, rubs, or gallops. LUNGS: Clear to auscultation bilaterally. No wheeze, rales, or rhonchi. ABDOMEN: Bowel sounds are positive, soft, nontender and nondistended. EXTREMITIES: no cyanosis, clubbing or edema. LABORATORY DATA: Initial hemoglobin is 7.7, repeat is 7.6, repeat is 10.4. CT of the abdomen and pelvis done shows that there is no definitive or intraabdominal findings. The patient has left renal cyst identified. There is an ovoid intermediate density lesion seen in the deep subcutaneous fat. Bebo Eller MD
[2016-11-25] MEDS: Collagenase 250 Units/gm Ointment(30 gm) TOP SCH (10:37)
--- NOTE | 2016-11-25 16:05 | CP.PCM.PN ---
Subjective - Date & Time of Evaluation Date of Evaluation: 11/25/16 Time of Evaluation: 16:02 - Subjective Subjective: Wound care Consult Note for Dr. Christianson Patient is a poor historian and is not able to answer many questions. HPI: 66F PMHx ESRD on HD, CAD s/p CABG, Seizures, depression, GERD, CHF, IDDM, Parkinson's, DVTs and CVA secondary to antiphospholipid syndrome. Patient was brought in by ambulance from [facility] for an elevated INR and hypoglycemia. Patient states her pain is in her sacral region. PAtient was previously admitted for sacral decubitus ulcer and HTN urgency on 11/03/15. General Surgery consulted for wound care of right knee 2.5 x 2" wound. Patient also has sacral decubitus ulcer state 2, right lateral leg ulcer, and right anterior knee ulcer stage 3. The right knee ulcer had necrotic tissue and was sharply debrided at bedside with Dr. Christianson Patient denied F/C, CP, SOB, abdominal pain, N/V, bleeding, numbness, tingling. PMHx: as stated above PSH: CABG, R BKA ALL: Cipro, clarithro, pepper Social: denies ETOH or drug use. Former smoker Objective - Vital Signs/Intake and Output Vital Signs (last 24 hours): Temp Pulse Resp BP Pulse Ox 98.3 F 60 18 170/60 H 99 11/25/16 08:16 11/25/16 15:20 11/25/16 08:16 11/25/16 15:20 11/25/16 08:16 Intake and Output: 11/25/16 11/25/16 06:59 18:59 Intake Total 120 Balance 120 - Medications Medications: Current Medications Albuterol/Ipratropium (Duoneb 3 Mg/0.5 Mg (3 Ml) Ud) 3 ml IH Q6H PRN PRN Reason: Shortness of Breath Alprazolam (Xanax) 0.5 mg PO TID PRN PRN Reason: Anxiety Last Admin: 11/23/16 21:54 Dose: 0.5 mg Amiodarone HCl (Cordarone) 200 mg PO DAILY [facility] Last Admin: 11/25/16 10:33 Dose: 200 mg Amlodipine Besylate (Norvasc) 10 mg PO DAILY [facility] Last Admin: 11/25/16 10:33 Dose: 10 mg Ascorbic Acid (Vitamin C 500 Mg Tab) 500 mg PO DAILY [facility] Last Admin: 11/25/16 10:12 Dose: 500 mg Atorvastatin Calcium (Lipitor) 80 mg PO DIN [facility] Last Admin: 11/24/16 16:44 Dose: 80 mg Carbidopa/Levodopa (Sinemet 10/100) 1 tab PO TID [facility] Last Admin: 11/25/16 15:20 Dose: 1 tab Carvedilol (Coreg) 6.25 mg PO Q12 [facility] Last Admin: 11/25/16 10:37 Dose: 6.25 mg Clonidine HCl (Catapres) 0.3 mg PO Q8 [facility] Last Admin: 11/25/16 15:20 Dose: 0.3 mg Collagenase (Santyl) 0 gm TOP DAILY [facility] Last Admin: 11/25/16 10:37 Dose: 1 applic Escitalopram Oxalate (Lexapro) 10 mg PO DAILY [facility] Last Admin: 11/25/16 10:12 Dose: 10 mg Famotidine (Pepcid) 20 mg PO 1000,2200 [facility] Last Admin: 11/25/16 10:12 Dose: 20 mg Gabapentin (Neurontin) 100 mg PO BID [facility] PRN Reason: Protocol Last Admin: 11/25/16 10:13 Dose: 100 mg Hydralazine HCl (Apresoline) 100 mg PO Q8H [facility] Last Admin: 11/25/16 08:22 Dose: 100 mg Meropenem 250 mg/ Sodium (Chloride) 100 mls @ 100 mls/hr IVPB Q12H [facility] PRN Reason: Protocol Stop: 11/30/16 21:31 Last Admin: 11/25/16 10:12 Dose: 100 mls/hr Insulin Human Lispro (Humalog Low) 0 units SC ACHS [facility] PRN Reason: Protocol Last Admin: 11/25/16 08:22 Dose: 1 units Lisinopril (Zestril) 80 mg PO DAILY [facility] Last Admin: 11/25/16 10:34 Dose: 80 mg Primidone (Mysoline) 50 mg PO DAILY [facility] Last Admin: 11/25/16 10:13 Dose: 50 mg Sertraline HCl (Zoloft) 25 mg PO HS [facility] Last Admin: 11/24/16 22:28 Dose: 25 mg Sevelamer HCl (Renagel) 800 mg PO TID [facility] Last Admin: 11/25/16 15:22 Dose: 800 mg Thiamine HCl (Vitamin B1 Tab) 100 mg PO DAILY [facility] Last Admin: 11/25/16 10:12 Dose: 100 mg Zinc Sulfate (Zinc Sulfate 220 Mg Cap) 220 mg PO DAILY [facility] Last Admin: 11/25/16 10:13 Dose: 220 mg - Labs Labs: 11/25/16 05:50 11/25/16 05:50 PT 34.3 Seconds (9.9-11.8) H* 11/25/16 05:50 INR 3.18 (0.93-1.08) H 11/25/16 05:50 APTT 86.4 Seconds (23.7-30.8) H* 11/22/16 06:40 - Constitutional Appears: Non-toxic, No Acute Distress - Head Exam Head Exam: NORMAL INSPECTION - Eye Exam Eye Exam: EOMI, Normal appearance - ENT Exam ENT Exam: Mucous Membranes Moist - Neck Exam Neck Exam: Full ROM. absent: Lymphadenopathy, Tenderness - Respiratory Exam Respiratory Exam: NORMAL BREATHING PATTERN. absent: Accessory Muscle Use, Respiratory Distress - Cardiovascular Exam Cardiovascular Exam: absent: Bradycardia - GI/Abdominal Exam GI & Abdominal Exam: Soft, Normal Bowel Sounds. absent: Tenderness, Hypoactive Bowel Sounds - Extremities Exam Extremities Exam: Full ROM, Normal Inspection. absent: Pedal Edema - Neurological Exam Neurological Exam: Alert, Awake, Normal Gait - Psychiatric Exam Psychiatric exam: Normal Affect, Normal Mood - Skin Skin Exam: Dry, Normal Color, Warm Additional comments: Right knee stage three ulcer with necrotic tissue. Debrided at bedside by Dr. Christianson. Assessment and Plan - Assessment and Plan (Free Text) Assessment: 66F with multiple ulcers stage 2 sacral decub, stage 3 anterior right knee, and right thigh wound. PMHx ESRD on HD, CAD s/p CABG, Seizures, depression, GERD, CHF, IDDM, Parkinson's, DVTs and CVA secondary to antiphospholipid syndrome. Plan: continue with current medical management ras tovar on sacral decubitus ulcer optifoam on right leg ulcers, with sharp debridement as needed. Clear for discharge to nursing center with proper wound care follow up discussed with Dr. Sammy Velez DO PGY1
[2016-11-25 17:53] VITALS: BP 180/68; PULSE 62; TEMP 98.2; O2SAT 97
--- NOTE | 2016-11-25 18:21 | CP.PCM.DIS ---
Provider - Provider Date of Admission: 11/20/16 22:17 Attending physician: Wm Aguirre MD Primary care physician: Bebo Eller MD Time Spent in preparation of Discharge (in minutes): 60 Hospital Course - Lab Results Lab Results: Micro Results 11/21/16 04:00 Foot - Left Gram Stain - Final 11/21/16 04:00 Foot - Left Wound Culture - Preliminary Coagulase Neg Staphylococcus 11/21/16 04:00 Knee - Left Gram Stain - Final 11/21/16 04:00 Knee - Left Wound Culture - Final Pseudomonas Aeruginosa Serratia Liquefaciens 11/20/16 23:01 Sacral Gram Stain - Final 11/20/16 23:01 Sacral Wound Culture - Final Pseudomonas Aeruginosa Escherichia Coli 11/21/16 04:00 Knee - Right Gram Stain - Final 11/21/16 04:00 Knee - Right Wound Culture - Final Escherichia Coli Proteus Mirabilis Most Recent Lab Values WBC 9.8 10^3/ul (4.5-11.0) 11/25/16 05:50 RBC 3.91 10^6/uL (3.5-6.1) 11/25/16 05:50 Hgb 10.2 g/dL (12.0-16.0) L 11/25/16 05:50 Hct 32.8 % (36.0-48.0) L 11/25/16 05:50 MCV 83.9 fl (80.0-105.0) 11/25/16 05:50 MCH 26.1 pg (25.0-35.0) 11/25/16 05:50 MCHC 31.1 g/dl (31.0-37.0) 11/25/16 05:50 RDW 18.6 % (11.5-14.5) H 11/25/16 05:50 Plt Count 345 10^3/uL (120.0-450.0) 11/25/16 05:50 MPV 10.4 fl (7.0-11.0) 11/25/16 05:50 Gran % 81.9 % (50.0-68.0) H 11/25/16 05:50 Lymph % (Auto) 9.6 % (22.0-35.0) L 11/25/16 05:50 Turner % (Auto) 6.9 % (1.0-6.0) H 11/25/16 05:50 Eos % (Auto) 1.4 % (1.5-5.0) L 11/25/16 05:50 Baso % (Auto) 0.2 % (0.0-3.0) 11/25/16 05:50 Gran # 8.05 (1.4-6.5) H 11/25/16 05:50 Lymph # 0.9 (1.2-3.4) L 11/25/16 05:50 Turner # 0.7 (0.1-0.6) H 11/25/16 05:50 Eos # 0.1 (0.0-0.7) 11/25/16 05:50 Baso # 0.02 K/mm3 (0.0-2.0) 11/25/16 05:50 PT 34.3 Seconds (9.9-11.8) H* 11/25/16 05:50 INR 3.18 (0.93-1.08) H 11/25/16 05:50 APTT 86.4 Seconds (23.7-30.8) H* 11/22/16 06:40 Sodium 139 mmol/L (132-148) 11/25/16 05:50 Potassium 3.9 mmol/L (3.6-5.0) 11/25/16 05:50 Chloride 97 mmol/L (95-110) 11/25/16 05:50 Carbon Dioxide 29 mmol/L (21-33) 11/25/16 05:50 Anion Gap 17 (10-20) 11/25/16 05:50 BUN 22 mg/dL (7-21) H 11/25/16 05:50 Creatinine 4.0 mg/dL (0.5-1.4) H 11/25/16 05:50 Est GFR ( Amer) 14 11/25/16 05:50 Est GFR (Non-Af Amer) 11 11/25/16 05:50 POC Glucose (mg/dL) 152 mg/dL (65-110) H 11/25/16 16:04 Random Glucose 142 mg/dL (70-110) H 11/25/16 05:50 Calcium 10.0 mg/dL (8.4-10.5) 11/25/16 05:50 Phosphorus 3.2 mg/dL (2.5-4.5) 11/23/16 07:30 Magnesium 1.9 mg/dL (1.7-2.2) 11/22/16 06:40 Total Bilirubin 0.7 mg/dL (0.2-1.3) 11/25/16 05:50 AST 26 U/L (15-39) 11/25/16 05:50 ALT 10 U/L (7-56) 11/25/16 05:50 Alkaline Phosphatase 139 U/L (38-133) H 11/25/16 05:50 Total Protein 7.3 g/dL (5.8-8.3) 11/25/16 05:50 Albumin 3.2 g/dL (3.0-4.8) 11/25/16 05:50 Globulin 4.1 gm/dL 11/25/16 05:50 Albumin/Globulin Ratio 0.8 (1.1-1.8) L 11/25/16 05:50 Urine Color Yellow (YELLOW) 11/20/16 19:40 Urine Appearance Sl cloudy (CLEAR) 11/20/16 19:40 Urine pH 8.0 (4.7-8.0) 11/20/16 19:40 Ur Specific Fleischmanns 1.020 (1.005-1.035) 11/20/16 19:40 Urine Protein >=300 mg/dL (<30 mg/dL) H 11/20/16 19:40 Urine Glucose (UA) 100 mg/dL (NEGATIVE) H 11/20/16 19:40 Urine Ketones Negative mg/dL (NEGATIVE) 11/20/16 19:40 Urine Blood Trace-lysed (NEGATIVE) H 11/20/16 19:40 Urine Nitrate Negative (NEGATIVE) 11/20/16 19:40 Urine Bilirubin Negative (NEGATIVE) 11/20/16 19:40 Urine Urobilinogen 0.2 E.U./dL (<1 E.U./dL) 11/20/16 19:40 Ur Leukocyte Esterase Trace Reymundo/uL (NEGATIVE) H 11/20/16 19:40 Urine RBC 2 - 5 /hpf (0-2) 11/20/16 19:40 Urine WBC 2 - 5 /hpf (0-6) 11/20/16 19:40 Ur Epithelial Cells Many /hpf (0-5) 11/20/16 19:40 Urine Bacteria Few (NEG) 11/20/16 19:40 Urine Other Uyeast 11/20/16 19:40 Blood Type B NEGATIVE 11/23/16 08:55 Antibody Screen Negative 11/23/16 08:55 Crossmatch See Detail 11/23/16 08:55 BBK History Checked Patient has bt 11/23/16 08:55 - Hospital Course Hospital Course: Patient is a 66 year old female with a PMHx of ESRD on HD, CAD s/p CABG, seizures, depression, GERD, CHF, IDDM, Parkinsons, DVTs and CVA secondary to antiphospholipid syndrome BIBA from long [facility] who was admitted to the hospital on 11/20/2016 for evaluation and treatment for elevated INR and hypoglycemic episodes. With the use of physical examinations, lab work, imaging , and consulting physicians including infectious disease, general surgery, and neprhology the patient INR and hypoglycemia were corrected and right knee/thigh and sacral wounds were treated. Patient instructed to follow with PMD, Dr. Eller, Dr. Issa, and Dr. Christianson in the outpatient setting. Patient is clear for discharge to her rehabilitation facility. Please return to ED for evaluation of fever, chills, chest pain, SOB, abdominal pain, intractable nausea /vomiting. Assessment and Plan: Patient is a 66 year old female with a PMHx of ESRD on HD, CAD s/p CABG, seizures, depression, GERD, CHF, IDDM, Parkinsons, DVTs and CVA secondary to antiphospholipid syndrome BIBA from long term of who was admitted to the hospital on 11/20/2016 for evaluation and treatment for elevated INR and hypoglycemic episodes. Supratherapeutic INR Hold coumadin, recheck INR tomorrow. Goal of INR is 2 to 3.5 for antiphospholipid syndrome, history of DVT, and recent angioplasty L anterial tibial artery (11/07/16) Give coumadin 2.5 if INR is less than 2.5 Hypoglycemia - Discontinue Levemir and standing insulin - Add new insulin based on low dose sliding scale Sacral decubitus ulcer; Lower extremity wounds - Santyl daily on R knee - No santyl on sacral wound - apply medihoney ointment to affected areas once daily - follow up with wound care nurse at the long term and Dr. Trejo - optifoam dressing daily - continue Multipodus boots and offloading - Follow up with Dr. sIsa, brick washer in 1-2 weeks - Follow up with Dr. Christianson, surgeon, for wound care in 1-2 weeks Hx of HTN - Amiodarone 200mg po daily - Norvasc 10mg po daily - Lisinopril 80mg po daily - Hydralazine 100mg po q8h - Coreg 6.25mg po q12 - Clonidine 0.3mg po bid ESRD on HD - continue HD - follow up with Dr. Pang outpatient Hx of CAD s/p CABG - ASA 81mg po daily - Lipitor 80mg po hs Hx of Antiphospholipid syndrome - Hold coumadin, recheck INR tomorrow. Goal of INR is 2 to 3.5 for antiphospholipid syndrome, history of DVT, and recent angioplasty L anterial tibial artery (11/07/16) - Give coumadin 2.5 if INR is less than 2.5 Hx of Depression and anxiety - Xanax 0.5mg po tid - Lexapro 10mg po daily Hx of Parkinsons - Primodone 50mg po daily - Sinemet 1 tab po daily Discharge Exam - Head Exam Head Exam: NORMAL INSPECTION - Additional Findings Additional findings: Constitutional: chronically ill, NAD Head and Neck: atraumatic, normocephalic, neck supple, no jvd, trachea midline, carotid midline, no cervical/head mass Eyes: eomi, julio, nonicteric sclera ENT: no nasal deformity Cardio: rrr, no m/r/g, no carotid bruit, nml s1, s2 Pulm: no accessory muscle use, equal nml breath sounds bilaterally, minor rhonchi in right bases Abd: s/nt/nd, nbs x 4 q, no palpable masses Derm: See additional findings Extr: R sided BKA- dressing in place Neuro: AO x 3 [self and place] - might be A/O X 3. CN II-XII grossly intact Additional: right knee 2.5 x 2" wound. Patient also has sacral decubitus ulcer stage 2, right lateral leg ulcer, and right anterior knee ulcer stage 3 Discharge Plan - Discharge Medications Prescriptions: Insulin Lispro-LOW [humALOG LOW] 2 units SC AC #100 units Warfarin [Coumadin] 2.5 mg PO 1800 PRN #3 tab PRN Reason: Other - Follow Up Plan Condition: FAIR Disposition: REHAB FACILITY/REHAB UNIT Instructions: Dialysis Diet (DC), Fever in Adults (GEN), Level 1 National Dysphagia Diet (GEN) Additional Instructions: Wound care instructions - Santyl daily on R knee - No santyl on sacral wound - apply medihoney ointment to affected areas once daily - follow up with wound care nurse at the long term and Dr. Trejo - optifoam dressing daily - continue Multipodus boots and offloading Discharge instructions Hold coumadin, recheck INR tomorrow. Goal of INR is 2 to 3.5 for antiphospholipid syndrome, history of DVT, and recent angioplasty L anterial tibial artery (11/07/16) Give coumadin 2.5 if INR is less than 2.[address] Issa, brick washer in 1-2 weeks Follow up with Dr. Christianson, surgeon, for wound care in 1-2 weeks Follow up with primary care doctor within this week. 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
--- NOTE | 2016-11-25 20:25 | PN ---
DATE: 11/25/2016 SUBJECTIVE: The patient is in bed, in no acute distress, nontoxic. PHYSICAL EXAMINATION: VITAL SIGNS: Temperature is 98, blood pressure is 180/60, respiratory rate is 18 and heart rate of 57. HEENT: Unremarkable. NECK: Supple. LUNGS: Decreased breath sound. HEART: Normal S1 and S2. ABDOMEN: Soft, nontender. LABORATORY DATA: Reveals a white count of 9.8, hemoglobin of 10, platelets of 345. Coagulation is noted. Chemistries reveal BUN of 22, creatinine of 4.0. Urinalysis is noted. Microbiology reveals the patient's blood cultures have no growth. E. coli in the right knee and pseudomonas in the left knee. Review of orders reveals the patient to be on meropenem. ASSESSMENT AND PLAN: This is a 66-year-old female with multiple decubitus ulcers; sacral ulcers; history of coronary artery disease; chronic congestive heart failure; end-stage renal disease, on hemodialysis; and antiphospholipid antibody syndrome, on meropenem day #3 with complete 5 to 7 days of antibiotics and local wound care. Elijah Stuart MD
== END 2016-11-25 18:43 | DRG 637 ==
LOC: ED 17:23 → ERH 22:17 → 5RSO 23:58
PROVIDERS: ADMIT Internal Medicine; ATTEND Internal Medicine
PROC: 5A1D60Z (ICD-10-PCS; principal; 2016-11-21)
DX: E11.649 Type 2 diabetes mellitus with hypoglycemia without coma (principal); L89.893 Pressure ulcer of other site, stage 3; I13.2 Hypertensive heart and chronic kidney disease with heart failure and with stage 5 chronic kidney disease, or end stage renal disease; D68.61 Antiphospholipid syndrome; L89.152 Pressure ulcer of sacral region, stage 2; L97.829 Non-pressure chronic ulcer of other part of left lower leg with unspecified severity; N18.6 End stage renal disease; L03.119 Cellulitis of unspecified part of limb; E11.22 Type 2 diabetes mellitus with diabetic chronic kidney disease; N25.81 Secondary hyperparathyroidism of renal origin; R79.1 Abnormal coagulation profile; E11.622 Type 2 diabetes mellitus with other skin ulcer; G20 Parkinson's disease; E11.51 Type 2 diabetes mellitus with diabetic peripheral angiopathy without gangrene; I50.9 Heart failure, unspecified; I25.10 Atherosclerotic heart disease of native coronary artery without angina pectoris; F32.9 Major depressive disorder, single episode, unspecified; F41.9 Anxiety disorder, unspecified; R56.9 Unspecified convulsions; K21.9 Gastro-esophageal reflux disease without esophagitis; E11.40 Type 2 diabetes mellitus with diabetic neuropathy, unspecified; E78.5 Hyperlipidemia, unspecified; B96.5 Pseudomonas (aeruginosa) (mallei) (pseudomallei) as the cause of diseases classified elsewhere; B96.20 Unspecified Escherichia coli [E. coli] as the cause of diseases classified elsewhere; B96.4 Proteus (mirabilis) (morganii) as the cause of diseases classified elsewhere; N28.1 Cyst of kidney, acquired; D63.8 Anemia in other chronic diseases classified elsewhere; Z79.82 Long term (current) use of aspirin; Z86.73 Personal history of transient ischemic attack (TIA), and cerebral infarction without residual deficits; Z89.511 Acquired absence of right leg below knee; Z95.1 Presence of aortocoronary bypass graft; Z99.2 Dependence on renal dialysis; Z86.718 Personal history of other venous thrombosis and embolism; Z79.01 Long term (current) use of anticoagulants; Z79.4 Long term (current) use of insulin

== ENCOUNTER 2016-12-29 15:44 | Inpatient (IN) | payer MEDICARE, BC ==
[2016-12-29] MEDS ORDERED: Piperacill/Tazo 4.5gm in NS 100 ML IVPB STA (16:02)
[2016-12-29] MEDS ORDERED: Vancomycin 1gm in NS 250ml 1 GM/250 ML BAG IVPB STA (16:02)
[2016-12-29] MEDS ORDERED: Piperacillin/Tazobact 3.375 gm 100 ML IV STA (16:07)
[2016-12-29 16:37] LABS: BASO # 0.01 K/mm3 (0.0-2.0); EOS # 0.1 (0.0-0.7); EOS % 0.3 % (1.5-5.0); GRAN # 19.73 (1.4-6.5); GRAN % 93.8 % (50.0-68.0); HEMATOCRIT 33.1 % (36.0-48.0); LYMPH # 0.8 (1.2-3.4); LYMPH % 3.7 % (22.0-35.0); MEAN CELL VOLUME 84.9 fl (80.0-105.0); MEAN CORPUSCULAR HEMOGLOBIN 25.4 pg (25.0-35.0); MEAN CORPUSCULAR HGB CONC 29.9 g/dl (31.0-37.0); MEAN PLATELET VOLUME 10.9 fl (7.0-11.0); MONO # 0.5 (0.1-0.6); MONO % 2.2 % (1.0-6.0); PLATELET COUNT 529 10^3/uL (120.0-450.0); WHITE BLOOD COUNT 21.1 10^3/ul (4.5-11.0)
[2016-12-29 16:38] LABS: URINE BILIRUBIN NEGATIVE (NEGATIVE); URINE BLOOD LARGE (NEGATIVE); URINE GLUCOSE (UA) NEGATIVE (NEGATIVE); URINE KETONE NEGATIVE (NEGATIVE); URINE LEUKOCYTE ESTERASE LARGE Leu/uL (NEGATIVE); URINE PROTEIN >=300 mg/dL (<30 mg/dL); URINE UROBILINOGEN 0.2 E.U./dL (<1 E.U./dL); VENOUS BLOOD GAS BASE EXCESS 3.7 mmol/L (0.0-2.0); VENOUS BLOOD PH 7.39 (7.32-7.43)
[2016-12-29 16:44] LABS: URINE APPEARANCE TURBID (CLEAR); URINE COLOR LIGHT YELLOW (YELLOW)
[2016-12-29 16:47] LABS: INR 2.87 (0.93-1.08); PARTIAL THROMBOPLASTIN TIME 45.3 Seconds (23.7-30.8)
[2016-12-29 16:52] LABS: URINE BACTERIA MANY (NEG); URINE RBC TNTC /hpf (0-2); URINE WBC TNTC /hpf (0-6)
--- NOTE | 2016-12-29 17:00 | ED PDOC ---
Arrival/HPI - General Chief Complaint: Altered Mental Status Time Seen by Provider: 12/29/16 15:47 Historian: Family, EMS - Critical Care Critical Care Minutes: 45 minutes - History of Present Illness Narrative History of Present Illness (Text): 12/29/16 16:10 A 66 year old female, whose past medical history includes endstage renal disease on dialysis, CAD s/p CABG, seizure, GERD, IDDM, and CVA, [facility] for lethargy, fever, and AMS. Patient had recent dialysis yesterday. According to family present, patient is normally nonverbal. PMD: Dr. Morton Symptom Onset: Gradual Symptom Course: Unchanged Past Medical History - Provider Review Nursing Documentation Reviewed: Yes - Infectious Disease Hx of Infectious Diseases: None - Tetanus Immunization Tetanus Immunization: Unknown - Reproductive Menopause: Yes - Cardiac Hx Cardiac Disorders: Yes Hx Hypertension: Yes - Pulmonary Hx Respiratory Disorders: Yes - Neurological HX Cerebrovascular Accident: Yes - HEENT Hx HEENT Disorder: Yes Other/Comment: wear glasses,L ear [place] - Renal Date of Last Dialysis Treatment: 12/28/16 Hx Kidney Stones: Yes Hx Renal Failure: Yes - Endocrine/Metabolic Hx Diabetes Mellitus Type 2: Yes - Hematological/Oncological Hx Blood Disorders: Yes - Integumentary Hx Dermatological Disorder: Yes Other/Comment: L great toe amputated,RT BKA - Musculoskeletal/Rheumatological Hx Musculoskeletal Disorders: Yes Hx Falls: No Other/Comment: RT BKA - Gastrointestinal Hx Gastroesophageal Reflux: Yes - Genitourinary/Gynecological Hx Genitourinary Disorders: No - Psychiatric Hx Psychophysiologic Disorder: Yes Hx Anxiety: Yes Hx Depression: Yes Hx Substance Use: No (Pt able to speak but refusing answer questions 11/21/16) - Surgical History Hx Amputation: Yes (L Great toe.RT BKA) Hx Open Heart Surgery: Yes - Anesthesia Hx Anesthesia: Yes Hx Anesthesia Reactions: No Hx Malignant Hyperthermia: No - Suicidal Assessment Feels Threatened In Home Enviroment: No Family/Social History - Physician Review Nursing Documentation Reviewed: Yes Family/Social History: No Known Family HX Smoking Status: Former Smoker Hx Alcohol Use: No (Pt able to speak but refusing answer questions 11/21/16) Hx Substance Use: No (Pt able to speak but refusing answer questions 11/21/16) Hx Substance Use Treatment: No Allergies/Home Meds Allergies/Adverse Reactions: Allergies ciprofloxacin Allergy (Verified 12/29/16 15:46) SWELLING hallucination clarithromycin [From Biaxin] Allergy (Verified 12/29/16 15:46) SWELLING pepper Allergy (Verified 12/29/16 15:46) SWELLING Home Medications: Home Meds Medication Instructions Recorded Confirmed Primidone [Mysoline] 50 mg PO DAILY 07/20/16 12/29/16 Amiodarone HCl [Pacerone] 200 mg PO DAILY 08/08/16 12/29/16 Gabapentin [Neurontin] 100 mg PO BID 08/08/16 12/29/16 Sevelamer [Renagel] 800 mg PO TID 08/08/16 12/29/16 Zinc [Zinc Sulfate 220 mg Cap] 220 mg PO DAILY 08/08/16 12/29/16 oxyCODONE [oxyCODONE Immediate 15 tab PO QID PRN 10/01/16 12/29/16 Release Tab] Carbidopa/Levodopa [Sinemet 1 tab PO TID 11/20/16 12/29/16 10] Famotidine [Pepcid] 20 mg PO DAILY 12/29/16 12/29/16 Review of Systems - Review of Systems Systems not reviewed;Unavailable: Altered Mental Status Constitutional: Fevers, Other (lethargy) Physical Exam Vital Signs Reviewed: Yes Vital Signs Temp Pulse Resp BP Pulse Ox 12/29/16 18:55 115 H 18 118/58 L 100 12/29/16 18:48 94 L 12/29/16 18:45 105 H 18 116/52 L 95 12/29/16 18:15 104 H 18 118/52 L 92 L 12/29/16 18:00 110 H 18 94 L 12/29/16 17:50 102 H 24 110/44 L 87 L 12/29/16 16:47 98 H 18 122/74 85 L 12/29/16 16:02 99 F 102 H 22 103/45 L 84 L Temperature: Afebrile Blood Pressure: Normal Pulse: Tachycardic Respiratory Rate: Normal Appearance: Positive for: Other (drowsy but arousable) Pain Distress: None Mental Status: Positive for: Lethargic Finger Stick Blood Glucose: 171 - Systems Exam Head: Present: Atraumatic, Normocephalic Pupils: Present: PERRL Extroacular Muscles: Present: EOMI Conjunctiva: Present: Normal Ears: Present: NORMAL TM Mouth: Present: Dry Pharnyx: Present: Normal Neck: Present: Normal Range of Motion Respiratory/Chest: Present: Clear to Auscultation, Good Air Exchange. No: Respiratory Distress, Accessory Muscle Use Cardiovascular: Present: Tachycardic Abdomen: Present: Normal Bowel Sounds. No: Tenderness, Distention, Peritoneal Signs Back: Present: Normal Inspection Upper Extremity: Present: Normal Inspection. No: Cyanosis, Edema Lower Extremity: Present: Other (right VKA, open skin ulcer with purulent exudate covered by bandage; left lower leg healed ulcer covered with bandage.) Neurological: Present: GCS=15, CN II-XII Intact, Speech Normal Skin: Present: Warm, Dry, Normal Color. No: Rashes Psychiatric: Present: Alert, Oriented x 3, Normal Insight, Normal Concentration Medical Decision Making ED Course and Treatment: 12/29/16 16:14 Impression: 66 year old female with AMS, fever, and lethargy. Physical exam shows patient appears drowsy but arousable, is lethargic; lower extremities shows right VKA, open skin ulcer to knee with imperial exudates covered with bandage, and loewr left leg healed ulcer covered with bandage. Plan: -- EKG -- Chest X-ray -- Labs -- Urinalysis -- IV Fluids -- Blood Gas -- Vancomycin -- Zosyn -- Blood Culture -- Urine Culture -- Reassess and disposition Prior Visits: Notes and results from previous visits were reviewed. Patient was last seen in the emergency department on 11/20/2016 for elevated INR and episodes of hypoglycemia. Patient was admitted. Progress Notes: EKG: Ordered, reviewed, and independently interpreted the EKG. Rate : 104 BPM Rhythm : Sinus tachycardia Interpretation : First degree Av block, LVH, non-specific ST changes. Comparison : No previous EKG for comparison. 12/29/2016 14:40 Called for code sepsis. Patient was administered IV Fluids and antibiotics previously. Patient had lower pulse oxygen and administered oxygen. ABG pending. 12/29/2016 14:42 Code sepsis announced for patient. 12/29/16 17:[address] Garcia whom is covering for Dr. Morton. Picking Tech and medical scribe to ED to evaluate patient. 12/29/2016 17:51 Chest X-ray IMPRESSION: No active disease. Dictator: Carl Petit MD PROCEDURE: INTUBATION Performed by the emergency provider Time: Consent: Discussion of the risks, benefits, and alternatives to the procedure, along with informed consent was precluded by the urgency of the procedure and the patient condition. Timeout: A timeout to verify the correct patient, procedure, and site was performed. Indication: Respiratory difficulty/hypoxic Pre-oxygenation: [id number] Medications: . See MAR for details. ETT Size: 7.5 Confirmation: Cords directly visualized as tube passed, good bilateral breath sounds, positive CO2 detector color change, tube fogging, adequate chest rise, improving pulse oximetry reading, improved skin color, and absence of gastric sounds,. ETT Secured: The cuff was inflated and the tube was secured appropriately at a distance of 22cm at the lip. Post-Procedure: There were no immediate complications. CXR Confirmation: {Yes ) 12/29/16 18:30 Pt. remained hypoxic despite attempts at high flow O2/ Bipap.Pt. also appearing tacypneic.Decision to intubate made. 12/29/16 19:15 Case endorsed to the net developer contract/medical scribe who will assume pt. care. - Lab Interpretations Lab Results: 12/29/16 16:10 12/29/16 16:10 Lab Results 12/29/16 17:00: pCO2 38, pO2 43.0 L*, HCO3 24.1, ABG pH 7.41, ABG Total CO2 25.3 , ABG O2 Saturation 83.5 L, ABG Base Excess -0.3, ABG Potassium 2.8 L, Sodium 142.0, Chloride 106.0, Glucose 167 H, Lactate 2.8 H, FiO2 100.0, Arterial Blood Potassium 2.8 L 12/29/16 16:10: Sodium 141, Chloride 99, Potassium 3.7, Carbon Dioxide 24, Anion Gap 22 H, BUN 24 H, Creatinine 3.1 H, Est GFR ( Amer) 18, Est GFR ( Non-Af Amer) 15, Random Glucose 150 H, Calcium 11.6 H, Phosphorus 4.4, Magnesium 2.3 H, Total Bilirubin 0.8, AST 20, ALT < 6 L, Alkaline Phosphatase 191 H, Troponin I 0.13 H* D, Total Protein 7.3, Albumin 3.3, Globulin 3.9, Albumin/Globulin Ratio 0.8 L 12/29/16 16:10: pO2 25 L, VBG pH 7.39, VBG pCO2 49.0, VBG HCO3 29.7 H, VBG Total CO2 31.2 H, VBG O2 Sat (Calc) 50.1, VBG Base Excess 3.7 H, VBG Potassium 3.7, Sodium 141.0, Chloride 102.0, Glucose 162 H, Lactate 4.1 H*, FiO2 21.0, Venous Blood Potassium 3.7 12/29/16 16:10: Urine Color Light yellow, Urine Appearance Turbid, Urine pH 7.0 , Ur Specific Neely 1.020, Urine Protein >=300 H, Urine Glucose (UA) Negative , Urine Ketones Negative, Urine Blood Large H, Urine Nitrate Negative, Urine Bilirubin Negative, Urine Urobilinogen 0.2, Ur Leukocyte Esterase Large H, Urine RBC Tntc, Urine WBC Tntc, Ur Epithelial Cells 6 - 8, Urine Bacteria Many 12/29/16 16:10: PT 31.0 H*, INR 2.87 H, APTT 45.3 H 12/29/16 16:10: WBC 21.1 H D, RBC 3.90, Hgb 9.9 L, Hct 33.1 L, MCV 84.9, MCH 25.4, MCHC 29.9 L, RDW 20.0 H, Plt Count 529 H, MPV 10.9, Gran % 93.8 H, Lymph % (Auto) 3.7 L, Esmeralda % (Auto) 2.2, Eos % (Auto) 0.3 L, Baso % (Auto) 0.0, Gran # 19.73 H, Lymph # 0.8 L, Esmeralda # 0.5, Eos # 0.1, Baso # 0.01, Neutrophils % ( Manual) 96 H, Band Neutrophils % 0, Lymphocytes % (Manual) 3 L, Monocytes % ( Manual) 1, Platelet Evaluation High, Large Platelets Present, Anisocytosis ( manual) 1+, Microcytosis (manual) Slight I have reviewed the lab results: Yes - RAD Interpretation Narrative RAD Interpretations (Text): 12/29/16 19:19 Post intubation CXR- ET tube above astrid Radiology Orders: 12/29/16 16:02 CHEST PORTABLE [RAD] Stat Neurosurgery Spine Physician: ED Physician - Medication Orders Current Medication Orders: Propofol (Diprivan) 1,000 mg in 100 mls @ 2.1 mls/hr IV .Q24H PRN; Protocol; 5 MCG/KG/MIN PRN Reason: TITRATE PER MD ORDER Heparin Sodium/Dextrose (Heparin 25,000 Units/250ml In D5w) 25,000 units in 250 mls @ 9.517 mls/hr IV .Q24H PRN; Protocol; 18 UNITS/KG/HR PRN Reason: ADJUST RATE PER PROTOCOL Last Admin: 12/29/16 20:30 Dose: 18 units/kg/hr, 9.517 mls/hr eMAR Start Stop Document 12/29/16 20:30 MPD (Rec: 12/29/16 21:26 MP [id number]) Intravenous Solution Start Date 12/29/16 Start Time 20:30 Titration Intervention Document 12/29/16 20:30 MPD (Rec: 12/29/16 21:26 MPD [id number]) Titration Intake Waste Amount 0 Container Volume 250 Titration Dosing Titration Dose 18 IV Rate 9.517 Intake/Decrease Started Meropenem 250 mg/ Sodium (Chloride) 100 mls @ 100 mls/hr IVPB Q12H DORON PRN Reason: Protocol Stop: 01/07/17 22:16 Discontinued Medications Vancomycin HCl (Vancomycin 1gm) 1 gm in 250 mls @ 167 mls/hr IVPB STAT STA PRN Reason: Protocol Stop: 12/29/16 17:31 Last Admin: 12/29/16 17:02 Dose: 167 mls/hr eMAR Start Stop Document 12/29/16 17:02 EWO (Rec: 12/29/16 17:02 EWO [facility] [id number]) Intravenous Solution Start Date 12/29/16 Start Time 17:02 End Date 12/29/16 End time 18:42 Total Infusion Time 100 Piperacillin Sod/Tazobactam Sod (Zosyn 3.375 In Ns 100ml) 100 mls @ 200 mls/hr IV STAT STA PRN Reason: Protocol Stop: 12/29/16 16:36 Last Admin: 12/29/16 16:34 Dose: 200 mls/hr eMAR Start Stop Document 12/29/16 16:34 EWO (Rec: 12/29/16 16:34 EWO [facility] [id number]) Intravenous Solution Start Date 12/29/16 Start Time 16:34 End Date 12/29/16 End time 17:04 Total Infusion Time 30 Sodium Chloride 2,100 ml/ IV (SUPPLIES) 2,100 mls @ 4,199.34 mls/hr IV ONCE ONE PRN Reason: 60 ML/KG/HR Stop: 12/29/16 16:15 Last Admin: 12/29/16 16:34 Dose: 4,199.34 mls/hr eMAR Start Stop Document 12/29/16 16:34 EWO (Rec: 12/29/16 16:35 EWO [facility] [id number]) Intravenous Solution Start Date 12/29/16 Start Time 16:34 End Date 12/29/16 End time 17:34 Total Infusion Time 60 - Scribe Statement The provider has reviewed the documentation as recorded by the Leda Antonio Provider Scribe Attestation: All medical record entries made by the Scribsudhir were at my direction and personally dictated by me. I have reviewed the chart and agree that the record accurately reflects my personal performance of the history, physical exam, medical decision making, and the department course for this patient. I have also personally directed, reviewed, and agree with the discharge instructions and disposition. Disposition/Present on Arrival - Present on Arrival Any Indicators Present on Arrival: No History of DVT/PE: No History of Uncontrolled Diabetes: No Urinary Catheter: No History of Decub. Ulcer: Yes History Surgical Site Infection Following: Orthopedic Procedures - Disposition Have Diagnosis and Disposition been Completed?: Yes Diagnosis: Sepsis, Respiratory failure Disposition: HOSPITALIZED Disposition Time: 17:46 Patient Plan: Admission Patient Problems: Current Active Problems Problem Status Onset Respiratory failure Acute Sepsis Acute Condition: GUARDED
[2016-12-29 17:04] LABS: ARTERIAL BLOOD GAS HCO3 24.1 mmol/L (21-28); ARTERIAL BLOOD GAS PH 7.41 (7.35-7.45)
[2016-12-29 17:09] LABS: ALB/GLOB RATIO 0.8 (1.1-1.8); ALKALINE PHOSPHATASE 191 U/L (38-126); AST/SGOT 20 U/L (14-36); BILIRUBIN,TOTAL 0.8 mg/dL (0.2-1.3); BLOOD UREA NITROGEN 24 mg/dL (7-21); CALCIUM 11.6 mg/dL (8.4-10.5); CARBON DIOXIDE 24 mmol/L (21-33); CHLORIDE 99 mmol/L (98-107); GFR AFRICAN-AMERICAN 18; GLUCOSE,RANDOM 150 mg/dL (70-110); MAGNESIUM 2.3 mg/dL (1.7-2.2); PHOSPHOROUS 4.4 mg/dL (2.5-4.5); POTASSIUM 3.7 mmol/L (3.6-5.0); SODIUM 141 mmol/L (132-148); TOTAL PROTEIN 7.3 g/dL (5.8-8.3)
[2016-12-29 17:10] LABS: ALT/SGPT < 6 U/L (7-56)
[2016-12-29 17:21] LABS: BAND 0 % (0-2); NEUTROPHIL 96 % (50.0-70.0)
[2016-12-29 17:22] LABS: ANISOCYTOSIS 1+; MICROCYTOSIS SLIGHT; PLATELET ESTIMATE HIGH (NORMAL)
[2016-12-29 17:23] LABS: LARGE PLATELETS PRESENT; TROPONIN I 0.13 ng/mL
--- NOTE | 2016-12-29 17:53 | RAD ---
HISTORY: Sepsis Patient COMPARISON: 11/20/2016 FINDINGS: LUNGS: No infiltrate. PLEURA: No significant pleural effusion identified, no pneumothorax apparent. CARDIOVASCULAR: CABG. Right tunneled central venous dialysis catheter. OSSEOUS STRUCTURES: No significant abnormalities. VISUALIZED UPPER ABDOMEN: Normal. OTHER FINDINGS: None. IMPRESSION: No active disease.
--- NOTE | 2016-12-29 18:12 | CP.CCUPN ---
CCU Subjective - Physician Review Events Since Last Encounter (Free Text): 12/29/16 18:05 66 y/o F [place] resident with multiple medical problems came due to hypoxia and AMS. The patient has multiple recent issues such as CVA, Sepsis and BKA w/ several wound infections. In the ER she is found to be hypoxia 80-86% on 100% fio2 on HFNC or BIPAP. The patient is currently not speaking and is delerious but protecting her away. CCU Objective - Vital Signs / Intake & Output Vital Signs (Last 4 hours): Vital Signs Pulse Resp BP Pulse Ox 12/29/16 17:50 102 H 24 110/44 L 87 L - Physical Exam Physical Exam Limitations: Positive for: Altered Mental Status Head: Positive for: Atraumatic, Normocephalic Pupils: Positive for: PERRL Extroacular Muscles: Positive for: EOMI Conjunctiva: Positive for: Normal Mouth: Positive for: Moist Mucous Membranes, Dry Neck: Positive for: Normal Range of Motion Respiratory/Chest: Positive for: Good Air Exchange, Rales, Rhonchi. Negative for: Respiratory Distress, Accessory Muscle Use Cardiovascular: Positive for: Tachycardic Abdomen: Positive for: Normal Bowel Sounds. Negative for: Tenderness, Distention, Peritoneal Signs Back: Positive for: Normal Inspection Upper Extremity: Positive for: Normal Inspection. Negative for: Cyanosis, Edema Lower Extremity: Positive for: Edema, Other (right VKA, open skin ulcer with imperial exudate covered by bandage; left lower leg healed ulcer covered with bandage.) Neurological: Positive for: Other (AMS) Skin: Positive for: Warm, Dry, Normal Color. Negative for: Rashes Psychiatric: Positive for: Alert, Oriented x 3, Normal Insight, Normal Concentration - Patient Studies Fingerstick Blood Sugar Results: 171 Review of Systems - Review of Systems Systems not reviewed;Unavailable: Altered Mental Status Critical Care Progress Note - Ventilator Checklist Daily Spontaneous Breathing Trial: Yes PUD Prophalyxis: Yes DVT Prophylaxis: Yes Oral Care with Chlorhexidine Gluconate {CHG}: Yes Assessment/Plan - Assessment and Plan (Free Text) Assessment: 66 y/o F w/ AMS likely secondary to SEPSIS . Unclear source but CXR does not show any new infiltrates, multiple wound sites infected and Urine LE +. Hypoxemic respiratory failure noted , CXR looks at baseline but does have L sided Ronchi / crackles. Sepsis protocol was started w/ fluids 30ml/kg, ABX and cx were drawn. IV fluids were stopped due to the hypoxia on 100% fio2. Family is at bedside making decisions . Full code status for now. On full anticoagulation due to A FIB hx w/ INR > 2. ESRD on HD, may need emergent HD to remove fluid in ligh tof her hypoxemia. Nephrolgy consulted . PPI DVT P cc time 65 min
[2016-12-29 18:13] LABS: ARTERIAL BLOOD GAS HCO3 18.8 mmol/L (21-28); ARTERIAL BLOOD GAS O2 CAPACITY 12.1 mL/dl (16-24); ARTERIAL BLOOD GAS O2 CONTENT 11.1 ML/dl (15-23); ARTERIAL BLOOD GAS PH 7.39 (7.35-7.45); ARTERIAL BLOOD HGB O2 SAT 89.9 % (95.0-98.0); CARBOXYHEMOGLOBIN 1.8 % (0.5-1.5); HHB 7.7 % (0-5); METHEMOGLOBIN 0.6 % (0.0-3.0)
[2016-12-29] MEDS ORDERED: Etomidate 20 mg/10ml Inj IV ONE (18:29)
[2016-12-29] MEDS ORDERED: Propofol 10 mg/ml 1,000 MG/100 ML VIAL IV PRN (19:22)
[2016-12-29] MEDS ORDERED: Heparin 25,000units in D5W 25,000 UNITS/250 ML BAG IV PRN (19:22)
[2016-12-29 20:21] LABS: VENOUS BLOOD GAS BASE EXCESS -5.4 mmol/L (0.0-2.0); VENOUS BLOOD PH 7.36 (7.32-7.43)
--- NOTE | 2016-12-29 21:13 | PCM.SEPTIC ---
Sepsis Progress Note - Reassessment Type Reassessment Type: Non-invasive reassessment - Non Invasive Reassessment Were the most recent vital sign reviewed: Yes Vital Sign (Latest): Temp Pulse Resp BP Pulse Ox 99 F 115 H 18 118/58 L 100 12/29/16 16:02 12/29/16 18:55 12/29/16 18:55 12/29/16 18:55 12/29/16 18:55 Cardiovascular: Yes: Regular Rate, Rhythm, Chest Non Tender Respiratory: Yes: Normal Breath Sounds (pt intubated) Capillary Refill: Normal (Less than 2 sec) Pulses: Normal Radial, Normal Dorsalis Pedis, Normal Posterior Tibialis Skin: Normal Color
[2016-12-29] MEDS ORDERED: Heparin 25,000units in D5W /250 ML BAG IV PRN (21:16)
[2016-12-29] MEDS ORDERED: NOREPINEPHRINE BIT/0.9 % NACL 4 MG/250 ML BAG IV ONE (22:42)
[2016-12-29] MEDS ORDERED: NOREPINEPHRINE BIT/0.9 % NACL 4 MG/250 ML BAG IV PRN (22:49)
[2016-12-29 23:22] LABS: ARTERIAL BLOOD GAS HCO3 16.3 mmol/L (21-28); ARTERIAL BLOOD GAS O2 CAPACITY 11.8 mL/dl (16-24); ARTERIAL BLOOD GAS O2 CONTENT 11.4 ML/dl (15-23); ARTERIAL BLOOD GAS PH 7.33 (7.35-7.45); ARTERIAL BLOOD HGB O2 SAT 94.3 % (95.0-98.0); CARBOXYHEMOGLOBIN 1.6 % (0.5-1.5); HHB 3.4 % (0-5); METHEMOGLOBIN 0.7 % (0.0-3.0)
[2016-12-29 23:42] LABS: VENOUS BLOOD GAS BASE EXCESS -6.4 mmol/L (0.0-2.0); VENOUS BLOOD PH 7.28 (7.32-7.43)
--- NOTE | 2016-12-29 23:50 | CP.PCM.HP ---
History of Present Illness - History of Present Illness History of Present Illness: H/P For IM - TKS DO, PGY-1 CC: AMS HPI: This is a 66Y F with PMH ESRD on HD, CAD s/p CABG, seizures, depression, GERD, CHF, IDDM, Parkinsons, DVTs and CVA secondary to antiphospholipid syndrome who came to the ED for AMS. Patient has been here several times in the past, with the most recent admission being 11/20-11/25 and 12/24-12/28 for sepsis and ESRD , respectively. History limited 2/2 patients mentation and intubation, but it was ascertained that patient had a fever and was lethargic in her assisted, as well as below her baseline mentation. A code sepsis was called for her in the ED, and due to her increasingly lethargic state as well as decreasing O2 sats, she was intubated. PMH: ESRD on HD (T,Th, Sa), CAD s/p CABG, CVA, seizures, depression, GERD, CHF, IDDM, Parkinsons, DVTs, antiphospholipid syndrome PSH: CABG, R BKA Meds: Please refer to MAR All: Lucero Dwyer Pepper SH: Denies EtOH or drug use. Former smoker FH: Non-contributory ROS: Unable to obtain a full subjective ROS 2/2 patients mental status and intubation Constitutional: +fever, +lethargy; Neuro: +ams Present on Admission - Present on Admission Any Indicators Present on Admission: No Past Patient History - Infectious Disease Hx of Infectious Diseases: None - Tetanus Immunizations Tetanus Immunization: Unknown - Past Medical History & Family History Past Medical History?: Yes - Past Social History Smoking Status: Former Smoker - CARDIAC Hx Cardiac Disorders: Yes Hx Hypertension: Yes - PULMONARY Hx Respiratory Disorders: Yes - NEUROLOGICAL HX Cerebrovascular Accident: Yes - HEENT Hx HEENT Problems: Yes Other/Comment: wear glasses,L ear [place] - RENAL Date of Last Dialysis Treatment: 12/28/16 Hx Kidney Stones: Yes Hx Renal Failure: Yes - ENDOCRINE/METABOLIC Hx Diabetes Mellitus Type 2: Yes - HEMATOLOGICAL/ONCOLOGICAL Hx Blood Disorders: Yes - INTEGUMENTARY Hx Dermatological Problems: Yes Other/Comment: L great toe amputated,RT BKA - MUSCULOSKELETAL/RHEUMATOLOGICAL Hx Musculoskeletal Disorders: Yes Hx Falls: No Other/Comment: RT BKA - GASTROINTESTINAL Hx Gastroesophageal Reflux: Yes - GENITOURINARY/GYNECOLOGICAL Hx Genitourinary Disorders: No - PSYCHIATRIC Hx Psychophysiologic Disorder: Yes Hx Anxiety: Yes Hx Depression: Yes Hx Substance Use: No (Pt able to speak but refusing answer questions 11/21/16) - SURGICAL HISTORY Hx Amputation: Yes (L Great toe.RT BKA) Hx Open Heart Surgery: Yes - ANESTHESIA Hx Anesthesia: Yes Hx Anesthesia Reactions: No Hx Malignant Hyperthermia: No Meds Allergies/Adverse Reactions: Allergies Allergy/AdvReac Type Severity Reaction Status Date / Time ciprofloxacin Allergy SWELLING Verified 12/29/16 15:46 clarithromycin [From Biaxin] Allergy SWELLING Verified 12/29/16 15:46 pepper Allergy SWELLING Verified 12/29/16 15:46 Physical Exam - Additional Findings Additional findings: Phys Exam: Constitutional: intubated; chronically ill, NAD Head and Neck: atraumatic, normocephalic, neck supple, no jvd, trachea midline, carotid midline, no cervical/head mass Eyes: eomi, julio, nonicteric sclera ENT: no nasal deformity Cardio: rrr, no m/r/g, no carotid bruit, nml s1, s2 Pulm: no accessory muscle use, equal nml breath sounds bilaterally, minor rhonchi in right bases Abd: s/nt/nd, nbs x 4 q, no palpable masses Derm: See additional findings Extr: R sided BKA- dressing in place Neuro: Might be A/O X 4, but does not answer questions, so hard to elicit. CN II-XII grossly intact Additional: Sacral Decub ulcer- Unstagable 7x8cm; Right Patella- Stage 3 4x5 ; Left calcaneous- unstagable 3x3 Results - Vital Signs Recent Vital Signs: Last Vital Signs Temp 99 F 12/29/16 16:02 Pulse 115 H 12/29/16 18:55 Resp 18 12/29/16 18:55 BP 118/58 L 12/29/16 18:55 Pulse Ox 100 12/29/16 18:55 - Labs Result Diagrams: 12/29/16 16:10 12/29/16 16:10 Labs: Laboratory Results - last 24 hr 12/29/16 12/29/16 12/29/16 18:10 19:55 20:15 pCO2 31 L pO2 59.0 L 39 HCO3 18.8 L ABG pH 7.39 ABG Total CO2 19.8 L ABG O2 Saturation 92.1 L ABG O2 Content 11.1 L ABG Base Excess -5.4 L ABG Hemoglobin 8.7 L ABG Carboxyhemoglobin 1.8 H POC ABG HHb (Measured) 7.7 H ABG Methemoglobin 0.6 ABG O2 Capacity 12.1 L VBG pH 7.36 VBG pCO2 34.0 L VBG HCO3 19.2 L VBG Total CO2 20.2 L VBG O2 Sat (Calc) 77.8 H VBG Base Excess -5.4 L VBG Potassium 3.5 L Hgb O2 Saturation 89.9 L Sodium 141.0 Chloride 103.0 Glucose 203 H Lactate 7.1 H* FiO2 100.0 21.0 Venous Blood Potassium 3.5 L Influenza Typ A,B (EIA) Negative for flu a/b 12/29/16 12/29/16 23:19 23:30 pCO2 31 L pO2 78.0 L 48 HCO3 16.3 L ABG pH 7.33 L ABG Total CO2 17.3 L ABG O2 Saturation 96.5 ABG O2 Content 11.4 L ABG Base Excess -8.7 L ABG Hemoglobin 8.5 L ABG Carboxyhemoglobin 1.6 H POC ABG HHb (Measured) 3.4 ABG Methemoglobin 0.7 ABG O2 Capacity 11.8 L VBG pH 7.28 L VBG pCO2 43.0 VBG HCO3 20.2 L VBG Total CO2 21.5 L VBG O2 Sat (Calc) 78.7 H VBG Base Excess -6.4 L VBG Potassium 3.2 L Hgb O2 Saturation 94.3 L Sodium 139.0 Chloride 105.0 Glucose 152 H Lactate 8.0 H* FiO2 100.0 21.0 Venous Blood Potassium 3.2 L Influenza Typ A,B (EIA) Assessment & Plan - Assessment and Plan (Free Text) Assessment: A/P: 66 year old female with AMS, fever, and lethargy. AMS likely 2/2 Sepsis - Multiple infected ulcers in sacral region and in b/l LE - F/u on Blood Cx - Vanc/Zosyn given in ER - Merrem/Zosyn/Vanc being given in ICU - Pt intubated, on Propofol (Diprivan) drip - ID C/s: Bogghosian Hypotension likely 2/2 AMS VS Diprivan drip - Pt given Norepi in ICU - Monitor BPs Multiple wounds - Multiple wounds on LE - CONSIDER surgery consult for debridement - CONSIDER Podiatry consult for LE wounds - Continue wound care - ID consulted - Morphine prn pain, Oxycodone (home med) schedule ESRD on HD - HD today - will continue HD schedule - Continue Renagel - Nephro C/s: Mughni IDDM - ISS - BGM ACHS - carb consistent diet CAD s/p CABG - Continue lipitor, ASA Antiphospholipid syndrome - Continue Coumadin - Monitor INR Hx of Depression and anxiety - Xanax and Lexapro Hx of Parkinsons - Primodone and Sinemet PPX - Coumadin/Protonix
[2016-12-30] MEDS ORDERED: Piperacillin/Tazobact 3.375 gm 100 ML IVPB SCH
[2016-12-30 05:55] LABS: PARTIAL THROMBOPLASTIN TIME > 180.0 Seconds (23.7-30.8)
[2016-12-30 05:56] LABS: INR 4.77 (0.93-1.08)
[2016-12-30 06:12] LABS: ARTERIAL BLOOD GAS HCO3 17.7 mmol/L (21-28); ARTERIAL BLOOD GAS PH 7.35 (7.35-7.45)
[2016-12-30 06:32] LABS: ALB/GLOB RATIO 0.8 (1.1-1.8); BILIRUBIN,TOTAL 0.7 mg/dL (0.2-1.3); CALCIUM 10.5 mg/dL (8.4-10.5); MAGNESIUM 1.9 mg/dL (1.7-2.2); PHOSPHOROUS 5.4 mg/dL (2.5-4.5); POTASSIUM 3.6 mmol/L (3.6-5.0); TOTAL PROTEIN 6.7 g/dL (5.8-8.3)
[2016-12-30 06:38] LABS: EOS % 0.1 % (1.5-5.0); GRAN # 14.63 (1.4-6.5); GRAN % 91.8 % (50.0-68.0); HEMATOCRIT 30.7 % (36.0-48.0); LYMPH # 0.9 (1.2-3.4); LYMPH % 5.5 % (22.0-35.0); MEAN CELL VOLUME 84.6 fl (80.0-105.0); MEAN CORPUSCULAR HEMOGLOBIN 25.1 pg (25.0-35.0); MEAN CORPUSCULAR HGB CONC 29.6 g/dl (31.0-37.0); MEAN PLATELET VOLUME 11.2 fl (7.0-11.0); MONO # 0.4 (0.1-0.6); MONO % 2.6 % (1.0-6.0); RED CELL DISTRIBUTION WIDTH 19.9 % (11.5-14.5); WHITE BLOOD COUNT 15.9 10^3/ul (4.5-11.0)
[2016-12-30 06:53] VITALS: TEMP 98.2
[2016-12-30] MEDS ORDERED: Sodium Chloride 0.9% 1,000 ML IV STA (07:29)
[2016-12-30] MEDS ORDERED: DOBUTamine 500mg/250ml D5W 500 MG/250 ML BAG IV PRN (07:30)
[2016-12-30] MEDS ORDERED: DOBUTamine 500mg/250ml D5W 500 MG/250 ML BAG ONE (07:33)
[2016-12-30] MEDS ORDERED: Amiodarone 150 mg/D5W 100 ml 150 MG/100 ML BAG ONE (07:49)
--- NOTE | 2016-12-30 07:53 | RAD ---
HISTORY: rhonchi on exam COMPARISON: Portable chest 12/29/2016 6:56 p.m.. FINDINGS: Endotracheal tube and right center venous dialysis catheter unchanged in position as well as midline left upper extremity PICC. LUNGS: Bilateral perihilar and right infrahilar airspace disease appreciated representing interval increase in pulmonary disease bilaterally. PLEURA: No significant pleural effusion identified, no pneumothorax apparent. CARDIOVASCULAR: Normal. OSSEOUS STRUCTURES: No significant abnormalities. VISUALIZED UPPER ABDOMEN: Normal. OTHER FINDINGS: None. IMPRESSION: Interval increased right and new left airspace disease identified as discussed above.
--- NOTE | 2016-12-30 07:56 | RAD ---
HISTORY: S/P intubation COMPARISON: Portable chest 12/29/2016 4:22 p.m.. FINDINGS: Endotracheal tube is now identified placed terminating at the inferior trachea chest below the level of clavicles with midline left PICC unchanged in position as well as right central venous dialysis catheter. LUNGS: Interval airspace disease identified in the right base silhouetting the right hemidiaphragm indicating right lower lobe involvement. None is seen at the left. PLEURA: No significant pleural effusion identified, no pneumothorax apparent. CARDIOVASCULAR: Normal. OSSEOUS STRUCTURES: No significant abnormalities. VISUALIZED UPPER ABDOMEN: Normal. OTHER FINDINGS: None. IMPRESSION: Interval airspace disease identified at the right lower lobe base with remainder of the examination appearing stable.
[2016-12-30 08:05] LABS: VENOUS BLOOD GAS BASE EXCESS -19.7 mmol/L (0.0-2.0)
[2016-12-30 08:06] LABS: BASO # 0.02 K/mm3 (0.0-2.0); BASO % 0.1 % (0.0-3.0); EOS # 0.1 (0.0-0.7); EOS % 0.2 % (1.5-5.0); GRAN # 17.18 (1.4-6.5); GRAN % 84.8 % (50.0-68.0); HEMATOCRIT 28.3 % (36.0-48.0); LYMPH # 2.3 (1.2-3.4); LYMPH % 11.4 % (22.0-35.0); MEAN CELL VOLUME 88.4 fl (80.0-105.0); MEAN CORPUSCULAR HGB CONC 28.3 g/dl (31.0-37.0); MONO # 0.7 (0.1-0.6); MONO % 3.5 % (1.0-6.0); RED CELL DISTRIBUTION WIDTH 19.6 % (11.5-14.5); WHITE BLOOD COUNT 20.3 10^3/ul (4.5-11.0)
[2016-12-30 08:08] LABS: VENOUS BLOOD PH 7.02 (7.32-7.43)
[2016-12-30] MEDS ORDERED: DOPamine 400mg/250ml D5W 400 MG/250 ML BAG IV PRN (08:11)
[2016-12-30] MEDS ORDERED: Vasopressin 20 UNITS in Dextrose 5% In Water 100 ML IV SCH (08:15)
[2016-12-30] MEDS ORDERED: Sodium Bicarbonate 8.4% 150 MEQ in Dextrose 5% In Water 1,000 ML IV SCH (08:15)
[2016-12-30 08:35] VITALS: BP 92/33; RESP 25; O2SAT 73
[2016-12-30 08:39] LABS: ALB/GLOB RATIO 0.7 (1.1-1.8); BILIRUBIN,TOTAL 0.4 mg/dL (0.2-1.3); CALCIUM 9.3 mg/dL (8.4-10.5); MAGNESIUM 1.9 mg/dL (1.7-2.2); POTASSIUM 3.3 mmol/L (3.6-5.0); TOTAL PROTEIN 5.3 g/dL (5.8-8.3)
[2016-12-30 08:54] VITALS: PULSE 95; BMI 19.4
[2016-12-30 09:11] LABS: TROPONIN I 0.24 ng/mL
--- NOTE | 2016-12-30 09:58 | CP.PCM.PRO ---
Pronouncement of Note - Clinical Findings Physical Exam: No Response Verbal/Painful Stimuli, Absent Heart & Breath Sounds , No Pupillary Light Reflex, Absence of Vital Signs - Notifications Pronouncement Notifications: Family Notified, Atending Notified Compressed Gases Tester Notified: No
--- NOTE | 2016-12-30 09:58 | CP.PCM.DIS ---
Provider - Provider Date of Admission: 12/29/16 17:47 Attending physician: Wm Aguirre MD Primary care physician: Alexey Morton MD Time Spent in preparation of Discharge (in minutes): 60 Hospital Course - Lab Results Lab Results: Most Recent Lab Values WBC 20.3 10^3/ul (4.5-11.0) H D 12/30/16 07:55 RBC 3.20 10^6/uL (3.5-6.1) L 12/30/16 07:55 Hgb 8.0 g/dL (12.0-16.0) L 12/30/16 07:55 Hct 28.3 % (36.0-48.0) L 12/30/16 07:55 MCV 88.4 fl (80.0-105.0) D 12/30/16 07:55 MCH 25.0 pg (25.0-35.0) 12/30/16 07:55 MCHC 28.3 g/dl (31.0-37.0) L 12/30/16 07:55 RDW 19.6 % (11.5-14.5) H 12/30/16 07:55 Plt Count 457 10^3/uL (120.0-450.0) H 12/30/16 07:55 MPV 11.0 fl (7.0-11.0) 12/30/16 07:55 Gran % 84.8 % (50.0-68.0) H 12/30/16 07:55 Lymph % (Auto) 11.4 % (22.0-35.0) L 12/30/16 07:55 Sampson % (Auto) 3.5 % (1.0-6.0) 12/30/16 07:55 Eos % (Auto) 0.2 % (1.5-5.0) L 12/30/16 07:55 Baso % (Auto) 0.1 % (0.0-3.0) 12/30/16 07:55 Gran # 17.18 (1.4-6.5) H 12/30/16 07:55 Lymph # 2.3 (1.2-3.4) 12/30/16 07:55 Sampson # 0.7 (0.1-0.6) H 12/30/16 07:55 Eos # 0.1 (0.0-0.7) 12/30/16 07:55 Baso # 0.02 K/mm3 (0.0-2.0) 12/30/16 07:55 Neutrophils % (Manual) 96 % (50.0-70.0) H 12/29/16 16:10 Band Neutrophils % 0 % (0-2) 12/29/16 16:10 Lymphocytes % (Manual) 3 % (22.0-35.0) L 12/29/16 16:10 Monocytes % (Manual) 1 % (1.0-6.0) 12/29/16 16:10 Platelet Evaluation High (NORMAL) 12/29/16 16:10 Large Platelets Present 12/29/16 16:10 Anisocytosis (manual) 1+ 12/29/16 16:10 Microcytosis (manual) Slight 12/29/16 16:10 PT 51.5 Seconds (9.9-11.8) H* 12/30/16 04:00 INR 4.77 (0.93-1.08) H* 12/30/16 04:00 APTT > 180.0 Seconds (23.7-30.8) H* 12/30/16 04:00 pCO2 32 mm/Hg (35-45) L 12/30/16 06:08 pO2 127 mm/Hg (30-55) H 12/30/16 07:55 HCO3 17.7 mmol/L (21-28) L 12/30/16 06:08 ABG pH 7.35 (7.35-7.45) 12/30/16 06:08 ABG Total CO2 18.7 mmol.L (22-28) L 12/30/16 06:08 ABG O2 Saturation 98.6 % (95-98) H 12/30/16 06:08 ABG O2 Content 11.4 ML/dl (15-23) L 12/29/16 23:19 ABG Base Excess -6.8 mmol/L (-2.0-3.0) L 12/30/16 06:08 ABG Hemoglobin 8.5 g/dL (11.7-17.4) L 12/29/16 23:19 ABG Carboxyhemoglobin 1.6 % (0.5-1.5) H 12/29/16 23:19 POC ABG HHb (Measured) 3.4 % (0-5) 12/29/16 23:19 ABG Methemoglobin 0.7 % (0.0-3.0) 12/29/16 23:19 ABG O2 Capacity 11.8 mL/dl (16-24) L 12/29/16 23:19 ABG Potassium 3.6 mmol/L (3.6-5.2) 12/30/16 06:08 VBG pH 7.02 (7.32-7.43) L* 12/30/16 07:55 VBG pCO2 42.0 (40-60) 12/30/16 07:55 VBG HCO3 10.8 mmol/l (21-28) L 12/30/16 07:55 VBG Total CO2 12.1 mmol.L (22-28) L 12/30/16 07:55 VBG O2 Sat (Calc) 97.6 % (40-65) H 12/30/16 07:55 VBG Base Excess -19.7 mmol/L (0.0-2.0) L 12/30/16 07:55 VBG Potassium 3.6 mmol/L (3.6-5.2) 12/30/16 07:55 Hgb O2 Saturation 94.3 % (95.0-98.0) L 12/29/16 23:19 Sodium 141.0 mmol/L (132-148) 12/30/16 07:55 Chloride 104.0 mmol/L (98-107) 12/30/16 07:55 Glucose 124 mg/dl (65-105) H 12/30/16 07:55 Lactate 15.5 mmol/L (0.7-2.1) H* 12/30/16 07:55 FiO2 21.0 % 12/30/16 07:55 Sodium 145 mmol/L (132-148) 12/30/16 08:10 Potassium 3.3 mmol/L (3.6-5.0) L 12/30/16 08:10 Chloride 106 mmol/L (98-107) 12/30/16 08:10 Carbon Dioxide 15 mmol/L (21-33) L 12/30/16 08:10 Anion Gap 27 (10-20) H 12/30/16 08:10 BUN 21 mg/dL (7-21) 12/30/16 08:10 Creatinine 2.6 mg/dL (0.5-1.4) H 12/30/16 08:10 Est GFR ( Amer) 22 12/30/16 08:10 Est GFR (Non-Af Amer) 18 12/30/16 08:10 Random Glucose 111 mg/dL (70-110) H 12/30/16 08:10 Calcium 9.3 mg/dL (8.4-10.5) 12/30/16 08:10 Phosphorus 7.0 mg/dL (2.5-4.5) H 12/30/16 08:10 Magnesium 1.9 mg/dL (1.7-2.2) 12/30/16 08:10 Total Bilirubin 0.4 mg/dL (0.2-1.3) 12/30/16 08:10 AST 306 U/L (14-36) H D 12/30/16 08:10 ALT 45 U/L (7-56) 12/30/16 08:10 Alkaline Phosphatase 114 U/L (38-126) 12/30/16 08:10 Troponin I 0.24 ng/mL H* D 12/30/16 08:10 Total Protein 5.3 g/dL (5.8-8.3) L 12/30/16 08:10 Albumin 2.2 g/dL (3.0-4.8) L 12/30/16 08:10 Globulin 3.1 gm/dL 12/30/16 08:10 Albumin/Globulin Ratio 0.7 (1.1-1.8) L 12/30/16 08:10 Arterial Blood Potassium 3.6 mmol/L (3.6-5.2) 12/30/16 06:08 Venous Blood Potassium 3.6 mmol/L (3.6-5.2) 12/30/16 07:55 Urine Color Light yellow (YELLOW) 12/29/16 16:10 Urine Appearance Turbid (CLEAR) 12/29/16 16:10 Urine pH 7.0 (4.7-8.0) 12/29/16 16:10 Ur Specific [place] 1.020 (1.005-1.035) 12/29/16 16:10 Urine Protein >=300 mg/dL (<30 mg/dL) H 12/29/16 16:10 Urine Glucose (UA) Negative mg/dL (NEGATIVE) 12/29/16 16:10 Urine Ketones Negative mg/dL (NEGATIVE) 12/29/16 16:10 Urine Blood Large (NEGATIVE) H 12/29/16 16:10 Urine Nitrate Negative (NEGATIVE) 12/29/16 16:10 Urine Bilirubin Negative (NEGATIVE) 12/29/16 16:10 Urine Urobilinogen 0.2 E.U./dL (<1 E.U./dL) 12/29/16 16:10 Ur Leukocyte Esterase Large Reymundo/uL (NEGATIVE) H 12/29/16 16:10 Urine RBC Tntc /hpf (0-2) 12/29/16 16:10 Urine WBC Tntc /hpf (0-6) 12/29/16 16:10 Ur Epithelial Cells 6 - 8 /hpf (0-5) 12/29/16 16:10 Urine Bacteria Many (NEG) 12/29/16 16:10 Influenza Typ A,B (EIA) Negative for flu a/b (NEGATIVE) 12/29/16 19:55 - Hospital Course Hospital Course: This is a 66Y F with PMH ESRD on HD, CAD s/p CABG, seizures, depression, GERD, CHF, IDDM, Parkinsons, DVTs and CVA secondary to antiphospholipid syndrome who came to the ED for AMS. Patient has been here several times in the past, with the most recent admission being 11/20-11/25 and 12/24-12/28 for sepsis and ESRD , respectively. History limited / patients mentation and intubation, but it was ascertained that patient had a fever and was lethargic in her jail, as well as below her baseline mentation. A code sepsis was called for her in the ED, and due to her increasingly lethargic state as well as decreasing O2 sats, she was intubated. Chest xray was obtained. There were wounds on her LE for which wound care was done. She was on meropenem, ID was consulted, she received morphine PRN for pain as well as she was on oxycodone with home med schedule. Patient was being monitored in the ICU, dialysis was done overnight, but her blood gas continued to worsen and lactate was increasing. She was followed closely by the ICU team. On 12/30 patient coded in the morning and compressions were done for 4 minutes, she received 1 dose of epi and was shocked. When a pulse was felt again, she was placed on amiodorine drip. Her son who had POA was contacted and stated to make her DNR, but continue the intubation. An hour later patient coded again and . Discharge Plan - Follow Up Plan Condition: GUARDED Disposition: WITH WITHOUT AUTOPSY Referrals: Alexey Morton MD [Primary Care Provider] -
--- NOTE | 2016-12-30 09:58 | CON ---
DATE: 12/30/2016 I was asked to see the patient Ms. Dickson after a cardiac arrest this morning. The patient was admitted last night with altered mental status and lethargy. On review of her chart, the patient is status post coronary artery bypass surgery, and ischemic dilated cardiomyopathy, diabetes mellitus, end-stage renal disease with severe peripheral vascular disease. In the emergency room, the patient was intubated, brought up to the ICU. This morning, the patient was admitted for cardiac arrest. By the time I arrived, the patient had agonal rhythms. I was informed that she was currently now a DNR and no further intervention is to be performed. Carl Mon MD
[2016-12-30] MEDS ORDERED: Vancomycin 1gm in NS 250ml 1 GM/250 ML BAG IVPB SCH (10:00)
--- NOTE | 2016-12-30 10:55 | RAD ---
HISTORY: s/p code blue COMPARISON: Earlier same day FINDINGS: LUNGS: There is an infiltrate in the right lung. This is unchanged. The endotracheal tube is in satisfactory position. Dialysis catheter in the right atrium PLEURA: No significant pleural effusion identified, no pneumothorax apparent. CARDIOVASCULAR: Normal. OSSEOUS STRUCTURES: No significant abnormalities. VISUALIZED UPPER ABDOMEN: Normal. OTHER FINDINGS: None. IMPRESSION: Right lung infiltrate consistent with pneumonia. Endotracheal tube remains in satisfactory position
--- NOTE | 2016-12-30 12:26 | CARD ---
APPROVED REPORT EKG Measurement Heart [id number] CO [id number] <Conclusion> Sinus tachycardia with 1st degree AV block Left ventricular hypertrophy with repolarization abnormality STTW changes c/w ischemia
--- NOTE | 2016-12-30 12:28 | CP.PCM.CON ---
<Melita Fine - Last Filed: 12/30/16 13:06> History of Present Illness - History of Present Illness History of Present Illness: PGY-[address] Eller 66 yo female with PMH ESRD on HD, CAD s/p CABG, seizures, depression, GERD, CHF , IDDM, Parkinson, DVTs and CVA presented to ED for AMS. History is limited, patient is currently intubated, and family is not at bedside. History is taken from ED note. On arrival patient was lethargic but arousable. While in ED was intubated. Per ED note patient had received HD on Friday and had about 1/5 L removed. PMH: ESRD on HD (,, ), CAD s/p CABG, CVA, seizures, depression, GERD, CHF, IDDM, Parkinsons, DVTs, antiphospholipid syndrome PSH: CABG, R BKA All: Lucero Dwyer Pepper Review of Systems - Review of Systems Systems not reviewed;Unavailable: Intubated Past Patient History - Infectious Disease Hx of Infectious Diseases: None - Tetanus Immunizations Tetanus Immunization: Unknown - Past Medical History & Family History Past Medical History?: Yes - Past Social History Smoking Status: Former Smoker - CARDIAC Hx Cardiac Disorders: Yes Hx Hypertension: Yes - PULMONARY Hx Respiratory Disorders: Yes - NEUROLOGICAL HX Cerebrovascular Accident: Yes - HEENT Hx HEENT Problems: Yes Other/Comment: wear glasses,L ear [place] - RENAL Date of Last Dialysis Treatment: 12/28/16 Hx Kidney Stones: Yes Hx Renal Failure: Yes - ENDOCRINE/METABOLIC Hx Diabetes Mellitus Type 2: Yes - HEMATOLOGICAL/ONCOLOGICAL Hx Blood Disorders: Yes - INTEGUMENTARY Hx Dermatological Problems: Yes Other/Comment: L great toe amputated,RT BKA - MUSCULOSKELETAL/RHEUMATOLOGICAL Hx Musculoskeletal Disorders: Yes Hx Falls: No Other/Comment: RT BKA - GASTROINTESTINAL Hx Gastroesophageal Reflux: Yes - GENITOURINARY/GYNECOLOGICAL Hx Genitourinary Disorders: No - PSYCHIATRIC Hx Psychophysiologic Disorder: Yes Hx Anxiety: Yes Hx Depression: Yes Hx Substance Use: No (Pt able to speak but refusing answer questions 11/21/16) - SURGICAL HISTORY Hx Amputation: Yes (L Great toe.RT BKA) Hx Open Heart Surgery: Yes - ANESTHESIA Hx Anesthesia: Yes Hx Anesthesia Reactions: No Hx Malignant Hyperthermia: No Meds Allergies/Adverse Reactions: Allergies Allergy/AdvReac Type Severity Reaction Status Date / Time ciprofloxacin Allergy SWELLING Verified 12/29/16 15:46 clarithromycin [From Biaxin] Allergy SWELLING Verified 12/29/16 15:46 pepper Allergy SWELLING Verified 12/29/16 15:46 - Medications Medications: Current Medications Hydrocortisone Sodium Succinate (Solu-Cortef) 50 mg IVP Q6H DORON Propofol (Diprivan) 1,000 mg in 100 mls @ 2.1 mls/hr IV .Q24H PRN; Protocol; 5 MCG/KG/MIN PRN Reason: TITRATE PER MD ORDER Last Titration: 12/29/16 22:00 Dose: 0 mcg/kg/min, 0 mls/hr Heparin Sodium/Dextrose (Heparin 25,000 Units/250ml In D5w) 25,000 units in 250 mls @ 9.517 mls/hr IV .Q24H PRN; Protocol; 18 UNITS/KG/HR PRN Reason: ADJUST RATE PER PROTOCOL Last Titration: 12/30/16 05:55 Dose: 0 units/kg/hr, 0 mls/hr Meropenem 250 mg/ Sodium (Chloride) 100 mls @ 100 mls/hr IVPB Q12H DORON PRN Reason: Protocol Stop: 01/07/17 22:16 Last Admin: 12/29/16 23:45 Dose: 100 mls/hr NOREPINEPHRINE BIT/0.9 % NACL (Levophed 4 Mg/ 250 Ml Ns Premixed) 4 mg in 250 mls @ 15 mls/hr IV .G02S01H PRN; Protocol; 4 MCG/MIN PRN Reason: TITRATE PER MD ORDER Last Titration: 12/30/16 04:45 Dose: 0 mcg/min, 0 mls/hr Dobutamine HCl/Dextrose (Dobutamine/Dextrose 5% 500mg/250ml) 500 mg in 250 mls @ 7.931 mls/hr IV .Q24H PRN; Protocol; 5 MCG/KG/MIN PRN Reason: TITRATE PER PROTOCOL Vasopressin 20 units/ Dextrose 101 mls @ 9.09 mls/hr IV .Q11H7M DORON; 0.03 U/MIN PRN Reason: Protocol Sodium Bicarbonate 150 meq/ (Dextrose) 1,150 mls @ 150 mls/hr IV .Q7H40M DORON Dopamine HCl/Dextrose (Dopamine 400mg/250ml D5w) 400 mg in 250 mls @ 19.827 mls /hr IV .[id number] PRN; Protocol; 10 MCG/KG/MIN PRN Reason: TITRATE PER MD ORDER Physical Exam - Constitutional Appears: Well, No Acute Distress - Head Exam Head Exam: ATRAUMATIC, NORMAL INSPECTION, NORMOCEPHALIC - ENT Exam Additional comments: Patient is intubated - Respiratory Exam Respiratory Exam: Rhonchi. absent: Decreased Breath Sounds, Rales, Wheezes Additional comments: Patient intubated - GI/Abdominal Exam GI & Abdominal Exam: Normal Bowel Sounds, Soft. absent: Distended, Firm, Guarding, Hernia - Extremities Exam Extremities exam: Positive for: normal inspection. Negative for: pedal edema - Neurological Exam Neurological exam: Alert, Oriented x3 - Skin Skin Exam: Dry, Intact, Normal Color, Warm Results - Vital Signs Recent Vital Signs: Last Vital Signs Temp 98.2 F 12/30/16 04:00 Pulse 44 L 12/30/16 08:17 Resp 25 H 12/30/16 08:20 BP 92/33 L 12/30/16 08:09 Pulse Ox 73 L 12/30/16 08:20 - Labs Result Diagrams: 12/30/16 07:55 12/30/16 08:10 Labs: Laboratory Results - last 24 hr 12/29/16 12/29/16 12/29/16 18:10 19:55 20:15 WBC RBC Hgb Hct MCV MCH MCHC RDW Plt Count MPV Gran % Lymph % (Auto) [place] % (Auto) Eos % (Auto) Baso % (Auto) Gran # Lymph # [place] # Eos # Baso # PT INR APTT pCO2 31 L pO2 59.0 L 39 HCO3 18.8 L ABG pH 7.39 ABG Total CO2 19.8 L ABG O2 Saturation 92.1 L ABG O2 Content 11.1 L ABG Base Excess -5.4 L ABG Hemoglobin 8.7 L ABG Carboxyhemoglobin 1.8 H POC ABG HHb (Measured) 7.7 H ABG Methemoglobin 0.6 ABG O2 Capacity 12.1 L ABG Potassium VBG pH 7.36 VBG pCO2 34.0 L VBG HCO3 19.2 L VBG Total CO2 20.2 L VBG O2 Sat (Calc) 77.8 H VBG Base Excess -5.4 L VBG Potassium 3.5 L Hgb O2 Saturation 89.9 L Sodium 141.0 Chloride 103.0 Glucose 203 H Lactate 7.1 H* FiO2 100.0 21.0 Potassium Carbon Dioxide Anion Gap BUN Creatinine Est GFR ( Amer) Est GFR (Non-Af Amer) Random Glucose Calcium Phosphorus Magnesium Total Bilirubin AST ALT Alkaline Phosphatase Troponin I Total Protein Albumin Globulin Albumin/Globulin Ratio Arterial Blood Potassium Venous Blood Potassium 3.5 L Influenza Typ A,B (EIA) Negative for flu a/b 12/29/16 12/29/16 12/30/16 23:19 23:30 04:00 WBC RBC Hgb Hct MCV MCH MCHC RDW Plt Count MPV Gran % Lymph % (Auto) [place] % (Auto) Eos % (Auto) Baso % (Auto) Gran # Lymph # [place] # Eos # Baso # PT 51.5 H* INR 4.77 H* APTT > 180.0 H* pCO2 31 L pO2 78.0 L 48 HCO3 16.3 L ABG pH 7.33 L ABG Total CO2 17.3 L ABG O2 Saturation 96.5 ABG O2 Content 11.4 L ABG Base Excess -8.7 L ABG Hemoglobin 8.5 L ABG Carboxyhemoglobin 1.6 H POC ABG HHb (Measured) 3.4 ABG Methemoglobin 0.7 ABG O2 Capacity 11.8 L ABG Potassium VBG pH 7.28 L VBG pCO2 43.0 VBG HCO3 20.2 L VBG Total CO2 21.5 L VBG O2 Sat (Calc) 78.7 H VBG Base Excess -6.4 L VBG Potassium 3.2 L Hgb O2 Saturation 94.3 L Sodium 139.0 Chloride 105.0 Glucose 152 H Lactate 8.0 H* FiO2 100.0 21.0 Potassium Carbon Dioxide Anion Gap BUN Creatinine Est GFR ( Amer) Est GFR (Non-Af Amer) Random Glucose Calcium Phosphorus Magnesium Total Bilirubin AST ALT Alkaline Phosphatase Troponin I Total Protein Albumin Globulin Albumin/Globulin Ratio Arterial Blood Potassium Venous Blood Potassium 3.2 L Influenza Typ A,B (EIA) 12/30/16 12/30/16 12/30/16 05:45 05:45 06:08 WBC 15.9 H D RBC 3.63 Hgb 9.1 L Hct 30.7 L MCV 84.6 MCH 25.1 MCHC 29.6 L RDW 19.9 H Plt Count 457 H MPV 11.2 H Gran % 91.8 H Lymph % (Auto) 5.5 L [place] % (Auto) 2.6 Eos % (Auto) 0.1 L Baso % (Auto) 0.0 Gran # 14.63 H Lymph # 0.9 L [place] # 0.4 Eos # 0.0 Baso # 0.00 PT INR APTT pCO2 32 L pO2 173.0 H HCO3 17.7 L ABG pH 7.35 ABG Total CO2 18.7 L ABG O2 Saturation 98.6 H ABG O2 Content ABG Base Excess -6.8 L ABG Hemoglobin ABG Carboxyhemoglobin POC ABG HHb (Measured) ABG Methemoglobin ABG O2 Capacity ABG Potassium 3.6 VBG pH VBG pCO2 VBG HCO3 VBG Total CO2 VBG O2 Sat (Calc) VBG Base Excess VBG Potassium Hgb O2 Saturation Sodium 139 138.0 Chloride 101 104.0 Glucose 142 H Lactate 7.7 H* FiO2 100.0 Potassium 3.6 Carbon Dioxide 18 L Anion Gap 24 H BUN 22 H Creatinine 2.8 H Est GFR ( Amer) 20 Est GFR (Non-Af Amer) 17 Random Glucose 137 H Calcium 10.5 Phosphorus 5.4 H Magnesium 1.9 Total Bilirubin 0.7 AST 183 H D ALT 25 Alkaline Phosphatase 149 H D Troponin I Total Protein 6.7 Albumin 3.0 Globulin 3.7 Albumin/Globulin Ratio 0.8 L Arterial Blood Potassium 3.6 Venous Blood Potassium Influenza Typ A,B (EIA) 12/30/16 12/30/16 12/30/16 07:55 07:55 08:10 WBC 20.3 H D RBC 3.20 L Hgb 8.0 L Hct 28.3 L MCV 88.4 D MCH 25.0 MCHC 28.3 L RDW 19.6 H Plt Count 457 H MPV 11.0 Gran % 84.8 H Lymph % (Auto) 11.4 L [place] % (Auto) 3.5 Eos % (Auto) 0.2 L Baso % (Auto) 0.1 Gran # 17.18 H Lymph # 2.3 [place] # 0.7 H Eos # 0.1 Baso # 0.02 PT INR APTT pCO2 pO2 127 H HCO3 ABG pH ABG Total CO2 ABG O2 Saturation ABG O2 Content ABG Base Excess ABG Hemoglobin ABG Carboxyhemoglobin POC ABG HHb (Measured) ABG Methemoglobin ABG O2 Capacity ABG Potassium VBG pH 7.02 L* VBG pCO2 42.0 VBG HCO3 10.8 L VBG Total CO2 12.1 L VBG O2 Sat (Calc) 97.6 H VBG Base Excess -19.7 L VBG Potassium 3.6 Hgb O2 Saturation Sodium 141.0 145 Chloride 104.0 106 Glucose 124 H Lactate 15.5 H* FiO2 21.0 Potassium 3.3 L Carbon Dioxide 15 L Anion Gap 27 H BUN 21 Creatinine 2.6 H Est GFR ( Amer) 22 Est GFR (Non-Af Amer) 18 Random Glucose 111 H Calcium 9.3 Phosphorus 7.0 H Magnesium 1.9 Total Bilirubin 0.4 AST 306 H D ALT 45 Alkaline Phosphatase 114 Troponin I 0.24 H* D Total Protein 5.3 L Albumin 2.2 L Globulin 3.1 Albumin/Globulin Ratio 0.7 L Arterial Blood Potassium Venous Blood Potassium 3.6 Influenza Typ A,B (EIA) Assessment & Plan - Assessment and Plan (Free Text) Assessment: 66 yo female with PMH ESRD on HD, CAD s/p CABG, seizures, depression, GERD, CHF , IDDM, Parkinsons, DVTs and CVA presented to ED for AMS, most likely secondary to sepsis. She was intubated for hypoxemic respiratory failure. Plan: 1. ESRD on HD - patient's last scheduled HD was Friday - she was dialyzed yesterday for about 1 hour for fluid overload, however patients BP dropped She was started on levophed and HD was stopped. - No fluid was able to be removed - we will hold HD for today 2. Hypoxemic respiratory failure - patient is intubated on PRVC - cxr today appears to have new infiltrate consistent with PNE - IVF were decreased - cont care per ICU team 3. sepsis most likely secondary to Multiple wounds - Multiple wounds on LE - Continue wound care - cont abx meropenum - ID consulted - Morphine prn pain, Oxycodone (home med) schedule 4. a. fib - anticoagulation held, patient is supra therapeutic - cont to monitor heart rate <Bebo Eller S - Last Filed: 12/30/16 21:28> Results - Vital Signs Recent Vital Signs: Last Vital Signs Temp 98.2 F 12/30/16 04:00 Pulse 44 L 12/30/16 08:17 Resp 25 H 12/30/16 08:20 BP 92/33 L 12/30/16 08:09 Pulse Ox 73 L 12/30/16 08:20 - Labs Result Diagrams: 12/30/16 07:55 12/30/16 08:10 Labs: Laboratory Results - last 24 hr 12/29/16 12/29/16 12/29/16 19:55 23:19 23:30 WBC RBC Hgb Hct MCV MCH MCHC RDW Plt Count MPV Gran % Lymph % (Auto) [place] % (Auto) Eos % (Auto) Baso % (Auto) Gran # Lymph # [place] # Eos # Baso # PT INR APTT pCO2 31 L pO2 78.0 L 48 HCO3 16.3 L ABG pH 7.33 L ABG Total CO2 17.3 L ABG O2 Saturation 96.5 ABG O2 Content 11.4 L ABG Base Excess -8.7 L ABG Hemoglobin 8.5 L ABG Carboxyhemoglobin 1.6 H POC ABG HHb (Measured) 3.4 ABG Methemoglobin 0.7 ABG O2 Capacity 11.8 L ABG Potassium VBG pH 7.28 L VBG pCO2 43.0 VBG HCO3 20.2 L VBG Total CO2 21.5 L VBG O2 Sat (Calc) 78.7 H VBG Base Excess -6.4 L VBG Potassium 3.2 L Hgb O2 Saturation 94.3 L Sodium 139.0 Chloride 105.0 Glucose 152 H Lactate 8.0 H* FiO2 100.0 21.0 Potassium Carbon Dioxide Anion Gap BUN Creatinine Est GFR ( Amer) Est GFR (Non-Af Amer) POC Glucose (mg/dL) Random Glucose Calcium Phosphorus Magnesium Total Bilirubin AST ALT Alkaline Phosphatase Troponin I C-React Prot High Sens Total Protein Albumin Globulin Albumin/Globulin Ratio Procalcitonin Arterial Blood Potassium Venous Blood Potassium 3.2 L Influenza Typ A,B (EIA) Negative for flu a/b 12/30/16 12/30/16 12/30/16 04:00 05:45 05:45 WBC 15.9 H D RBC 3.63 Hgb 9.1 L Hct 30.7 L MCV 84.6 MCH 25.1 MCHC 29.6 L RDW 19.9 H Plt Count 457 H MPV 11.2 H Gran % 91.8 H Lymph % (Auto) 5.5 L [place] % (Auto) 2.6 Eos % (Auto) 0.1 L Baso % (Auto) 0.0 Gran # 14.63 H Lymph # 0.9 L [place] # 0.4 Eos # 0.0 Baso # 0.00 PT 51.5 H* INR 4.77 H* APTT > 180.0 H* pCO2 pO2 HCO3 ABG pH ABG Total CO2 ABG O2 Saturation ABG O2 Content ABG Base Excess ABG Hemoglobin ABG Carboxyhemoglobin POC ABG HHb (Measured) ABG Methemoglobin ABG O2 Capacity ABG Potassium VBG pH VBG pCO2 VBG HCO3 VBG Total CO2 VBG O2 Sat (Calc) VBG Base Excess VBG Potassium Hgb O2 Saturation Sodium 139 Chloride 101 Glucose Lactate FiO2 Potassium 3.6 Carbon Dioxide 18 L Anion Gap 24 H BUN 22 H Creatinine 2.8 H Est GFR ( Amer) 20 Est GFR (Non-Af Amer) 17 POC Glucose (mg/dL) Random Glucose 137 H Calcium 10.5 Phosphorus 5.4 H Magnesium 1.9 Total Bilirubin 0.7 AST 183 H D ALT 25 Alkaline Phosphatase 149 H D Troponin I C-React Prot High Sens Total Protein 6.7 Albumin 3.0 Globulin 3.7 Albumin/Globulin Ratio 0.8 L Procalcitonin Arterial Blood Potassium Venous Blood Potassium Influenza Typ A,B (EIA) 12/30/16 12/30/16 12/30/16 06:08 07:45 07:55 WBC RBC Hgb Hct MCV MCH MCHC RDW Plt Count MPV Gran % Lymph % (Auto) [place] % (Auto) Eos % (Auto) Baso % (Auto) Gran # Lymph # [place] # Eos # Baso # PT INR APTT pCO2 32 L pO2 173.0 H HCO3 17.7 L ABG pH 7.35 ABG Total CO2 18.7 L ABG O2 Saturation 98.6 H ABG O2 Content ABG Base Excess -6.8 L ABG Hemoglobin ABG Carboxyhemoglobin POC ABG HHb (Measured) ABG Methemoglobin ABG O2 Capacity ABG Potassium 3.6 VBG pH VBG pCO2 VBG HCO3 VBG Total CO2 VBG O2 Sat (Calc) VBG Base Excess VBG Potassium Hgb O2 Saturation Sodium 138.0 Chloride 104.0 Glucose 142 H Lactate 7.7 H* FiO2 100.0 Potassium Carbon Dioxide Anion Gap BUN Creatinine Est GFR ( Amer) Est GFR (Non-Af Amer) POC Glucose (mg/dL) 128 H Random Glucose Calcium Phosphorus Magnesium Total Bilirubin AST ALT Alkaline Phosphatase Troponin I C-React Prot High Sens Total Protein Albumin Globulin Albumin/Globulin Ratio Procalcitonin 23.00 H Arterial Blood Potassium 3.6 Venous Blood Potassium Influenza Typ A,B (EIA) 12/30/16 12/30/16 12/30/16 07:55 07:55 07:55 WBC 20.3 H D RBC 3.20 L Hgb 8.0 L Hct 28.3 L MCV 88.4 D MCH 25.0 MCHC 28.3 L RDW 19.6 H Plt Count 457 H MPV 11.0 Gran % 84.8 H Lymph % (Auto) 11.4 L [place] % (Auto) 3.5 Eos % (Auto) 0.2 L Baso % (Auto) 0.1 Gran # 17.18 H Lymph # 2.3 [place] # 0.7 H Eos # 0.1 Baso # 0.02 PT INR APTT pCO2 pO2 127 H HCO3 ABG pH ABG Total CO2 ABG O2 Saturation ABG O2 Content ABG Base Excess ABG Hemoglobin ABG Carboxyhemoglobin POC ABG HHb (Measured) ABG Methemoglobin ABG O2 Capacity ABG Potassium VBG pH 7.02 L* VBG pCO2 42.0 VBG HCO3 10.8 L VBG Total CO2 12.1 L VBG O2 Sat (Calc) 97.6 H VBG Base Excess -19.7 L VBG Potassium 3.6 Hgb O2 Saturation Sodium 141.0 Chloride 104.0 Glucose 124 H Lactate 15.5 H* FiO2 21.0 Potassium Carbon Dioxide Anion Gap BUN Creatinine Est GFR ( Amer) Est GFR (Non-Af Amer) POC Glucose (mg/dL) Random Glucose Calcium Phosphorus Magnesium Total Bilirubin AST ALT Alkaline Phosphatase Troponin I C-React Prot High Sens > 15.00 H Total Protein Albumin Globulin Albumin/Globulin Ratio Procalcitonin Arterial Blood Potassium Venous Blood Potassium 3.6 Influenza Typ A,B (EIA) 12/30/16 08:10 WBC RBC Hgb Hct MCV MCH MCHC RDW Plt Count MPV Gran % Lymph % (Auto) [place] % (Auto) Eos % (Auto) Baso % (Auto) Gran # Lymph # [place] # Eos # Baso # PT INR APTT pCO2 pO2 HCO3 ABG pH ABG Total CO2 ABG O2 Saturation ABG O2 Content ABG Base Excess ABG Hemoglobin ABG Carboxyhemoglobin POC ABG HHb (Measured) ABG Methemoglobin ABG O2 Capacity ABG Potassium VBG pH VBG pCO2 VBG HCO3 VBG Total CO2 VBG O2 Sat (Calc) VBG Base Excess VBG Potassium Hgb O2 Saturation Sodium 145 Chloride 106 Glucose Lactate FiO2 Potassium 3.3 L Carbon Dioxide 15 L Anion Gap 27 H BUN 21 Creatinine 2.6 H Est GFR ( Amer) 22 Est GFR (Non-Af Amer) 18 POC Glucose (mg/dL) Random Glucose 111 H Calcium 9.3 Phosphorus 7.0 H Magnesium 1.9 Total Bilirubin 0.4 AST 306 H D ALT 45 Alkaline Phosphatase 114 Troponin I 0.24 H* D C-React Prot High Sens Total Protein 5.3 L Albumin 2.2 L Globulin 3.1 Albumin/Globulin Ratio 0.7 L Procalcitonin Arterial Blood Potassium Venous Blood Potassium Influenza Typ A,B (EIA) Assessment & Plan - Assessment and Plan (Free Text) Plan: Pt seen and examined. Agree with above note and plan of resident. Reviewed old records. Labs and meds reviewed. Unable to perform HD due to unstable vitals. She had a full treatment on 12-28-16 of HD with no major issues. Poor prognosis. Spoke to Dr Radford.
--- NOTE | 2016-12-31 08:30 | PN ---
DATE: 12/30/2016 SUBJECTIVE: The patient is seen and examined at bedside. She is not under sedation, but not responsive to any stimuli. There are occasional spontaneous breaths. The patient is on PRBC 400/25/5/60%. She just had a code blue with PEA for about 3 minutes and currently is on norepinephrine 20 mcg/minute, dobutamine 2.5 mcg/kg per minute and dopamine 10 mcg/kg per minute. PHYSICAL EXAMINATION: VITAL SIGNS: On bed setting, her blood pressure is 92/33, heart rate is 51, oxygen saturation 95%. End-tidal CO2 of 15 (VBG showed pH 7.02 and bicarb drip was started). ENT, HEAD AND NECK: Atraumatic. LUNGS: Few crackles bibasilarly. HEART: Regular rate and rhythm. S1 and S2 distant. ABDOMEN: Soft, nontender, nondistended. MUSCULOSKELETAL EXAM: Status post right AKA, unstageable decubiti in the sacral area, in the left heel and in the right stump. SKIN: Moist. PSYCHIATRIC: The patient is nonresponsive to painful or otherwise stimuli. LABORATORY DATA: Repeated labs are pending; however, morning labs show WBC 15.9, down from 21.1; hemoglobin 9.1; platelet count 457. Sodium 139, potassium 3.6, chloride 101, carbon dioxide 18, BUN 22, creatinine 2.8 (the patient is on dialysis). AST 183, ALT 25. MEDICATIONS: Dobutamine; dopamine; hydrocortisone 50 mg IV q. 6; meropenem; norepinephrine; bicarb ordered but not started yet, 150 mL/hour; vancomycin; vasopressin. Chest x-ray showed no pneumothorax, right lower lobe and right middle lobe infiltrates. ASSESSMENT AND PLAN: This is a 66-year-old lady with multiple, multiple comorbidities Bam Dawson MD
--- NOTE | 2016-12-31 08:34 | PN ---
DATE: 12/30/2016 This is continuation of my previous progress note. ASSESSMENT AND PLAN: This is a 66-year-old lady who presented with hypoxemic respiratory failure in the setting of community-acquired pneumonia (which would formally be called healthcare-associated pneumonia as the patient came home) complicated with septic shock and multiorgan system failure. The patient does have end-stage organ disease and is on chronic dialysis; however, her mental status suggest septic encephalopathy and hypoxemic respiratory failure was also diagnosed in the emergency room. At present time, the patient is on broad-spectrum antibiotics. Vasopressor support provided with norepinephrine and dopamine. The patient is on inotropic support with dobutamine. Of note, the patient has moderate left ventricular systolic dysfunction and severe pulmonary hypertension. The patient just noted for about 5 minutes with PEA arrest. The patient regained spontaneous circulation and responded initially in atrial fibrillation with rapid ventricular response and amiodarone was started for a short period of time (of note, the patient was previously on Coumadin and anticoagulated with INR of more than 4). However, during the course, the patient's family was contacted and they decided to make the patient do not resuscitate that was after regaining her spontaneous circulation. Cardiology consult was called, official request pending. Protective lung ventilation strategy, fluid resuscitation. ID service follow up. We will continue to maintain euvolemia, euglycemia, normothermia and oxygen saturation more than 90%. We will continue VAP bundle. Bam Dawson MD
--- NOTE | 2016-12-31 09:44 | CARD ---
APPROVED REPORT EKG Measurement Heart [id number] <Conclusion> Sinus rhythm with 1st degree AV block with premature supraventricular complexes Left axis deviation Right bundle branch block Abnormal ECG
== END 2016-12-30 14:10 | DRG 871 ==
LOC: ED 15:44 → ERH 17:47 → CCU 19:18
PROVIDERS: ADMIT Internal Medicine; ATTEND Internal Medicine
PROC: 5A1935Z Respiratory Ventilation, Less than 24 Consecutive Hours (ICD-10-PCS; principal; 2016-12-29)
PROC: 0BH17EZ Insertion of Endotracheal Airway into Trachea, Via Natural or Artificial Opening (ICD-10-PCS; 2016-12-29)
DX: A41.9 Sepsis, unspecified organism (principal); R65.21 Severe sepsis with septic shock; J96.01 Acute respiratory failure with hypoxia; I46.9 Cardiac arrest, cause unspecified; G93.41 Metabolic encephalopathy; J18.9 Pneumonia, unspecified organism; I13.2 Hypertensive heart and chronic kidney disease with heart failure and with stage 5 chronic kidney disease, or end stage renal disease; N18.6 End stage renal disease; D68.61 Antiphospholipid syndrome; I42.0 Dilated cardiomyopathy; I27.20 Pulmonary hypertension, unspecified; Y95 Nosocomial condition; I25.10 Atherosclerotic heart disease of native coronary artery without angina pectoris; Z95.1 Presence of aortocoronary bypass graft; Z99.2 Dependence on renal dialysis; R56.9 Unspecified convulsions; K21.9 Gastro-esophageal reflux disease without esophagitis; Z86.73 Personal history of transient ischemic attack (TIA), and cerebral infarction without residual deficits; Z89.511 Acquired absence of right leg below knee; Z87.891 Personal history of nicotine dependence; Z87.442 Personal history of urinary calculi; Z79.899 Other long term (current) drug therapy; Z79.4 Long term (current) use of insulin; Z79.01 Long term (current) use of anticoagulants; Z66 Do not resuscitate; I50.9 Heart failure, unspecified; I48.91 Unspecified atrial fibrillation; I25.5 Ischemic cardiomyopathy; G20 Parkinson's disease; E11.22 Type 2 diabetes mellitus with diabetic chronic kidney disease; E11.51 Type 2 diabetes mellitus with diabetic peripheral angiopathy without gangrene; F32.89 Other specified depressive episodes; Z89.412 Acquired absence of left great toe; F41.9 Anxiety disorder, unspecified; Z88.1 Allergy status to other antibiotic agents; Z91.018 Allergy to other foods; R40.2412 Glasgow coma scale score 13-15, at arrival to emergency department; I44.0 Atrioventricular block, first degree